=== PATIENT | male | born 1940 | race Caucasian/White ===

== ENCOUNTER → 2018-11-30 | Outpatient (CLI) | payer MEDICARE ==
--- NOTE | 2018-12-01 08:44 | RAD ---
Left lower extremity arterial ultrasound, 11/30/2018: HISTORY: Nonhealing left foot ulcer Duplex evaluation of the major arteries in the left lower extremity was performed including grayscale, color-flow and spectral Doppler analysis. There are moderate scattered atherosclerotic plaquing plaques. The left common femoral and superficial femoral arteries are triphasic. No significant focal velocity acceleration is seen in these vessels to suggest high-grade focal stenosis. The left popliteal Doppler waveform is monophasic. The left posterior tibial artery is patent and demonstrates a monophasic Doppler waveform. There is a velocity acceleration near the origin of the left posterior tibial artery, although inadequate angle correction may be contributing to this high velocity. The appearance suggests moderate stenosis at the origin of this vessel. The left anterior tibial artery is patent with a monophasic Doppler waveform. The left peroneal Doppler waveform is monophasic and dampened. The left dorsalis pedis artery is patent demonstrating a monophasic Doppler waveform. There is streaky subcutaneous edema inferiorly in the lower leg and at the ankle. IMPRESSION: 1. Moderate scattered atherosclerotic plaquing without evidence of high-grade femoral-popliteal stenosis. 2. Probable moderate stenosis at the origin of the left posterior tibial artery. 3. Mild degradation of the Doppler waveforms at and distal to the left popliteal artery level. Ankle-brachial indices, 11/30/2018: Resting ankle-brachial indices were obtained. The right KESHIA is normal measuring 1.19. The left KESHIA is slightly decreased measuring 0.88. IMPRESSION: Mildly decreased left resting KESHIA measurement of 0.88 Electronically signed by: Marcelino Mancia MD (12/01/2018 8:41 AM) [facility], [place]
== END | disposition home or self-care (01) ==
LOC: PMGWOUND 12:07
PROVIDERS: ATTEND Emergency Medicine Undersea and Hyperbaric Medicine
DX: E11.621 Type 2 diabetes mellitus with foot ulcer (principal); L97.423 Non-pressure chronic ulcer of left heel and midfoot with necrosis of muscle; E11.22 Type 2 diabetes mellitus with diabetic chronic kidney disease; N18.9 Chronic kidney disease, unspecified; G89.4 Chronic pain syndrome; E03.9 Hypothyroidism, unspecified; F32.9 Major depressive disorder, single episode, unspecified; N40.1 Benign prostatic hyperplasia with lower urinary tract symptoms
CPT/HCPCS: 93922; 93926; 97597

== ENCOUNTER → 2018-12-21 | Outpatient (CLI) | payer MEDICARE | END | disposition home or self-care (01) | LOC: PMGWOUND 12:50 | PROVIDERS: ATTEND Emergency Medicine Undersea and Hyperbaric Medicine | DX: E11.621 Type 2 diabetes mellitus with foot ulcer (principal); L97.423 Non-pressure chronic ulcer of left heel and midfoot with necrosis of muscle; E11.22 Type 2 diabetes mellitus with diabetic chronic kidney disease; N18.9 Chronic kidney disease, unspecified; L84 Corns and callosities; G89.4 Chronic pain syndrome; E03.9 Hypothyroidism, unspecified; N40.1 Benign prostatic hyperplasia with lower urinary tract symptoms; F32.9 Major depressive disorder, single episode, unspecified | CPT/HCPCS: 11042; 93923 ==

== ENCOUNTER → 2019-01-04 | Outpatient (CLI) | payer MEDICARE | END | disposition home or self-care (01) | LOC: PMGWOUND 11:47 | PROVIDERS: ATTEND Emergency Medicine Undersea and Hyperbaric Medicine | DX: E11.621 Type 2 diabetes mellitus with foot ulcer (principal); L97.423 Non-pressure chronic ulcer of left heel and midfoot with necrosis of muscle; E11.22 Type 2 diabetes mellitus with diabetic chronic kidney disease; N18.9 Chronic kidney disease, unspecified; L84 Corns and callosities; G89.4 Chronic pain syndrome; E03.9 Hypothyroidism, unspecified; I87.2 Venous insufficiency (chronic) (peripheral); F32.9 Major depressive disorder, single episode, unspecified; N40.1 Benign prostatic hyperplasia with lower urinary tract symptoms | CPT/HCPCS: 11042 ==

== ENCOUNTER 2019-06-07 12:13 | Inpatient (IN) | payer MEDICARE ==
[~2019-06-07] VITALS: Ht 182.9 cm; Wt 106.4 kg
--- NOTE | 2019-06-07 13:00 | NUR ---
Received report from Ashley ROSARIO at [facility].
[2019-06-07 16:21] VITALS: BP 138/66
--- NOTE | 2019-06-07 17:19 | PDOC2 ---
GI CONSULT Reason For Consult: GI bleed HPI: HPI: 78 y/o male from [facility]. Awoke at 2:30 a.m. and had "black" emesis. Last occurred at 6:30 a.m. Denies precipitating events. Says this has happened a couple times over the past few months. Hgb 11.8, BUN 58, Cr 1.9, glucose 234. For comparison, Hgb 14.5, BUN 45, Cr 1.9 in 03/2019, then Hgb drifted to 11.7 and 11.[address]: hepatic steatosis, diffuse bladder wall thickening, large volume colonic stool w/ possible impaction, stable renal lesions, markedly distended stomach, and ventral abd hernia containing colon. Occasional burping improved w/ Pepcid. No dysphagia. No abd pain or diarrhea. No hematochezia or melena. Chronic constipation attributed to oxycodone and OxyContin use for right hand, right arm, bilateral shoulders, neck, and back pain. Was also previously taking Celebrex and Aleve but stopped in 03/2019. Reports normal EGD and colonoscopy w/ Dr. Oliveira ~5 years ago. No GB, liver, pancreas, or PUD history. Says he has been advised to take ASA but doesn't. Glucose control has been "all over the place" recently. PMH: PMH: CAD, HTN, DM, hypothyroidism, chronic pain, constipation, neurofibromatosis, BPH, depression, CKD, ED CABG w/ sternal wound dehiscence requiring additional surgery w/ mesh placement (now apparently displaced), left shoulder surgeries, right hand surgery, ?thoracic aneurysm repair FH: Family History: No pertinent hx Social History: Smoke: <1 pack per day ALCOHOL: occassional Drugs: None ROS: GEN: Denies fevers, chills, sweats HEENT: Denies blurred vision, sore throat CV: Denies chest pain RESP: Denies shortness of air, cough GI: Per HPI : Denies hematuria, dysuria ENDO: Denies weight changes NEURO: Denies confusion, dizziness MSK: Denies weakness, joint pain/swelling SKIN: Denies jaundice, pruritus Vitals: Vitals: Vital Signs Date Time Temp Pulse Resp B/P (MAP) Pulse Ox O2 Delivery O2 Flow Rate FiO2 06/07/19 16:21 98.4 96 18 138/66 (90) 96 Room Air 98.4 Labs: Labs: Per HPI. Allergies: Coded Allergies: Penicillins (Verified Allergy, Unknown, 06/07/19) Imaging: Imaging: Per HPI. PE: GEN: NAD, and [id number] present HEENT: Atraumatic, PERRL LUNGS: diminished anteriorly HEART: RRR ABD: NABS, S/ND, reducible ventral hernia EXTREMITY/SKIN: BLE wrapped NEURO/PSYCH: A & O �3 A/P: A/P: Black emesis, distended stomach on CT Normocytic anemia ?GERD - "burping" improved w/ Pepcid CRC screen - UTD OIC Hepatic steatosis Ventral hernia containing colon CAD, CKD, DM/hyperglycemia H/o NSAID use - stopped in March -- NPO, NG tube suction, EGD tomorrow a.m. Agree w/ PPI. Add suppository. Consider Relistor, Movantik, Amitiza, or similar later on. Chronic pain control per Dr. Hancock. GERALD SMITH Jun 07, 2019 17:19
[2019-06-07] MEDS ORDERED: BISACODYL 10 MG SUPP.RECT. PR ONE (17:45)
[2019-06-07] MEDS ORDERED: HYDROmorphone 2 MG/ML VIAL IVP PRN (17:45)
[2019-06-07] MEDS ORDERED: LORazepam 0.5 MG TABLET PO PRN (18:00)
[2019-06-07] MEDS ORDERED: NICOTINE 21MG PATCH. TD PRN (18:00)
[2019-06-07] MEDS: IV NORMAL SALINE 1000ML BAG 1,000 ML IV SCH (18:07)
[2019-06-07 19:00] VITALS: BP 138/64
[2019-06-07 19:11] LABS: BASO % 0 % (0-3); EOS % 0 % (0-3); HEMATOCRIT 31.8 % (39.0-53.0); HEMOGLOBIN 10.7 g/dL (13.0-17.5); LYMPH # 0.8 x10^3/uL (1.0-4.8); LYMPH % 13 % (24-48); MEAN CORPUSCULAR HEMOGLOBIN 32 pg (25-35); MEAN CORPUSCULAR HGB CONC 34 g/dL (31-37); MEAN CORPUSCULAR VOLUME 96 fL (79-100); MONO % 18 % (0-9); NEUT % 68 % (31-73); PLATELET COUNT 275 x10^3/uL (140-400); RED BLOOD COUNT 3.33 x10^6/uL (4.30-5.70); RED CELL DISTRIBUTION WIDTH 13.9 % (11.5-14.5); WHITE BLOOD COUNT 5.8 x10^3/uL (4.0-11.0)
[2019-06-07 19:19] LABS: CALCIUM 8.9 mg/dL (8.5-10.1); CREATININE 1.5 mg/dL (0.7-1.3); GFR 45.4; POTASSIUM 4.3 mmol/L (3.5-5.1)
[2019-06-07] MEDS ORDERED: NIFE60TA16 PO (19:53)
[2019-06-07] MEDS ORDERED: LOSA1TAB25 PO (19:53)
[2019-06-07] MEDS ORDERED: MORP60TA60 PO (19:53)
[2019-06-07] MEDS ORDERED: B12/1TAB PO (19:53)
[2019-06-07] MEDS ORDERED: TEST200V3 IM (19:53)
[2019-06-07] MEDS ORDERED: FINA5TAB4 PO (19:53)
[2019-06-07] MEDS ORDERED: SIMV40TA3 PO (19:53)
[2019-06-07] MEDS ORDERED: FURO40TA4 PO (19:53)
[2019-06-07] MEDS ORDERED: INSU100I13 SQ (19:53)
[2019-06-07] MEDS ORDERED: INSU100I16 SQ (19:53)
[2019-06-07] MEDS ORDERED: METO200T46 PO (19:53)
[2019-06-07] MEDS ORDERED: LEVO175T5 PO (19:53)
[2019-06-07] MEDS: PANTOPRAZOLE IV PUSH 40 MG VIAL. IVP SCH (21:40)
[2019-06-07] MEDS: HYDROmorphone 2 MG/ML VIAL IV PRN (22:07)
--- NOTE | 2019-06-07 23:27 | RAD ---
AP abdomen radiograph 06/07/2019 CLINICAL HISTORY: NG tube placement. An AP portable erect digital radiograph of the abdomen was obtained. The tip of a NG tube extends to overlie the body of the stomach. The side-port of the NG tube overlies the expected location of the GE junction. The visualized abdominal bowel gas pattern is nonspecific. Subsegmental atelectasis is seen involving the left lower lobe. The cardiac silhouette is mildly enlarged. Mild S-shaped curvature of the thoracolumbar spine is seen. Degenerative changes are seen involving lower thoracic and throughout the lumbar spine. IMPRESSION: The tip of the NG tube overlies the body of the stomach. Electronically signed by: Kervin Segovia MD (06/07/2019 11:25 PM) [facility]
[2019-06-07 23:50] VITALS: BP 123/60
[2019-06-08] MEDS: HYDROmorphone 2 MG/ML VIAL IV PRN ×6 (02:17→23:08)
[2019-06-08 03:14] VITALS: BP 131/72
[2019-06-08] MEDS: IV NORMAL SALINE 1000ML BAG 1,000 ML IV SCH ×2 (05:29→19:10)
[2019-06-08 07:25] VITALS: BP 106/64
[2019-06-08 07:33] LABS: HEMATOCRIT 31.5 % (39.0-53.0); HEMOGLOBIN 10.8 g/dL (13.0-17.5)
[2019-06-08] MEDS: PANTOPRAZOLE IV PUSH 40 MG VIAL. IVP SCH ×2 (08:38→21:39)
--- NOTE | 2019-06-08 09:06 | HP ---
ADMIT DATE: HISTORY OF PRESENT ILLNESS: The patient is a 78-year-old male patient who came to the Emergency Room of [facility] with a complaint of recurrent episodes of nausea, vomiting with vomiting blood. He also complained of abdominal pain. The patient reported that emesis was black and tarry in nature and the abdominal pain was diffuse. Emergency medical service personnel gave him Zofran and fentanyl, which did significantly improved the discomfort. He has previous history of cardiac bypass surgery in 1999, but is not currently on any blood thinners or aspirin. Denied any blood in the stools. He notes that he has had a cough, uncertain as to whether cough is triggering the vomiting. He denied any recent travel or ill contact. He was investigated in the Emergency Room and was transferred to [facility] to consult the GI team to monitor his H and H and transfuse him if needed. The patient denied using any nonsteroidal anti-inflammatory medication. Since his last admission in March this year while in the Emergency Room, he was found to have acute on chronic kidney injury. His creatinine is up to 1.9, has had a CT scan of the abdomen and pelvis as well as chest x-ray. His chest x-ray showed no acute pulmonary process and a CT scan of the abdomen and pelvis showed that he has large volume colonic stool, content large volume stool, likely impacted within the rectosigmoid. The stomach is markedly distended with fluid. This may be a result of recent meal ingestion, although pyloric or proximal small bowel obstruction cannot be entirely excluded. Has nonspecific mesenteric infiltration engorgement, grossly stable by the prior CT. No free or loculated fluid collection or pneumoperitoneum. High density renal lesions are essentially unchanged from prior CT from 08/31/2018. This can be correlated with ultrasound or MRI if not previously performed, has diffuse bladder wall thickening, may be seen with cystitis. He was basically admitted to [facility], kept n.p.o. and started on IV fluid, IV pain medication as well as IV Protonix. PAST MEDICAL HISTORY: Significant for benign prostatic hypertrophy, hypothyroidism, hypogonadism, neurofibromatosis, type 2 diabetes mellitus, chronic fatigue syndrome, chronic neck pain, lumbago, depression, chronic pain syndrome, chronic renal insufficiency, erectile dysfunction and nocturia. PAST SURGICAL HISTORY: Significant for thoracic aortic aneurysm repair. He has also shoulder surgery and hand surgery. FAMILY HISTORY: Both parents are . SOCIAL HISTORY: He is , lives with his . He has 1 son who is in the law enforcement agency at another state. He apparently does not smoke, drink alcohol or use recreational drugs. ALLERGIES: HE IS ALLERGIC TO PENICILLIN. MEDICATIONS: He is currently on following medications: He is on simvastatin 40 mg at bedtime, metoprolol succinate 100 mg once a day, nifedipine 60 mg once a day, losartan potassium 100 mg once a day, hydromorphone 2 mg 3 times a day, morphine sulfate 60 mg p.o. t.i.d., furosemide 40 mg once a day, testosterone 200 mg intramuscular every 10 days. He is on Lantus insulin 35 units at bedtime, levothyroxine 175 mcg once a day, finasteride 5 mg once a day. REVIEW OF SYSTEMS: As per history of present illness. PHYSICAL EXAMINATION: GENERAL: On arrival to the Emergency Room, he looked well and was clearly in no apparent respiratory distress, slightly pale, but no jaundice, cyanosis or thyromegaly. No jugular venous distention. No limb edema. VITAL SIGNS: His heart rate was 82, blood pressure 149/78, temperature was 97.9, respiratory rate was 17 and oxygen saturation was 95%. HEAD, EYES, EARS, NOSE AND THROAT: Showed normocephalic, atraumatic. NECK: Supple. HEART: Showed normal first and second heart sounds. No gallop or murmur. CHEST: Clear to auscultation. No crepitation or rhonchi. ABDOMEN: Distended, soft, nontender. No guarding or rigidity. No organomegaly. All hernial orifice intact. Bowel sounds normal. NEUROLOGIC: He was awake, alert, responding appropriately. All cranial nerves are intact. He moves his upper extremities to much good extent than lower extremities, he is mostly bedbound, chair bound. LABORATORY DATA: On arrival to the Emergency Room showed a serum sodium 137, potassium 4, chloride 99, bicarbonate 29, anion gap of 9, BUN 58, creatinine was 1.9, estimated GFR was 34 mL per minute, his glucose was 134, calcium was 9.8. Total bilirubin, AST, ALT, alkaline phosphatase were normal. Total protein 6.7, albumin 2.3. Serum lipase was 32. His white cell count was 6900, hemoglobin 12, hematocrit 35, MCV 96, and platelet count of 295,000 with normal manual differential. His prothrombin time was 10.8, INR 1, aPTT was 38. Urinalysis showed the urine was yellow, hazy with a pH of 5, specific gravity of 1.010. Urine protein was 30 mg/dL. There was small amount of glucose, trace of ketones, small amount of blood, negative for nitrite and leukocyte esterase, only 3-5 rbc's with occasional wbc's and no bacteria. His chest x-ray showed the heart size is normal. Lungs are clear. No pneumothorax or effusion, calcified granulomas in the left lung base. Visualized bony thorax within normal limits. His CT scan of the abdomen and pelvis showed that the patient has large volume stool, likely impacted within the rectosigmoid. His stomach is markedly distended with fluid. This may be a result of recent meal ingestion, although pyloric or proximal small bowel obstruction cannot be entirely excluded. There is nonspecific mesenteric infiltration engorgement, grossly stable compared to previous CT scan. No free fluid or loculated fluid collection, no pneumoperitoneum. There is also diffuse bladder wall thickening, may be seen with cystitis. The patient was basically transferred to [facility], was kept n.p.o. We started him on IV fluid and consulted the Gastroenterology team to assist with his management. He was started on IV hydromorphone for pain management as well as IV Protonix. We will monitor his H and H closely and transfuse him if needed. KERI DIGGS MD DR: PAIGE/chastity JOB#: [id number] / [id number]
--- NOTE | 2019-06-08 09:08 | PN ---
DATE: 06/08/2019 SUBJECTIVE: The patient is resting, slightly propped up in bed, in no apparent respiratory distress. He was seen by the Gastroenterology team, has had an NG tube to intermittent suction. He continues to have cough, but has no further episodes of nausea, vomiting or hematemesis. He did have a bowel movement. PHYSICAL EXAMINATION: GENERAL: When I examined him this morning, he looked pale. No jaundice, cyanosis or thyromegaly. No jugular venous distension. No lower limb edema. VITAL SIGNS: His heart rate was 81, blood pressure was 106/64, temperature was 98.3, respiratory rate was 18 and oxygen saturation was 94%. HEAD, EYES, EARS, NOSE AND THROAT: Normocephalic, atraumatic. NECK: Supple. HEART: Showed normal first and second heart sounds. No gallop or murmur. CHEST: Clear to auscultation. No crepitation or rhonchi. ABDOMEN: Distended, soft, nontender. No guarding or rigidity. No organomegaly. All hernial orifices are intact. Bowel sounds normal. NEUROLOGICAL: He is awake, alert, responding appropriately. All cranial nerves intact. He moves upper extremities to much great extent than lower extremities. EXTREMITIES: He has wounds in both lower extremities that are apparently covered with dressings, followed by Wound Care team. His intake over the last 24 hours was incompletely recorded, output was 600. LABORATORY DATA: His lab work this morning: His hemoglobin was 10.8, hematocrit 31.5. His chemistry showed a serum sodium 137, potassium 4.3, chloride 102, bicarbonate 26, anion gap of 9, BUN 53, creatinine 1.5, estimated GFR was 45 mL per minute and glucose was 256, calcium was 8.9. Serum iron, TIBC and iron saturation are all low; however, his vitamin B12 was 587 pg/mL. ASSESSMENT: Recurrent bouts of dark black emesis with CT scan revealing distended stomach. The patient has normochromic normocytic anemia. The patient has multiple other medical problems. PLAN: To continue with NG tube to suction, continue with IV fluid, continue with proton pump inhibitor. He is scheduled for upper GI endoscopy today. KERI DIGGS MD DR: PAIGE/chastity JOB#: [id number] / [id number]
[2019-06-08] MEDS: IV RINGERS,LACTATED 1000ML 1,000 ML IV SCH ×2 (09:15→22:35)
[2019-06-08 09:23] LABS: HEMATOCRIT 33.1 % (39.0-53.0); HEMOGLOBIN 11.1 g/dL (13.0-17.5)
[2019-06-08] MEDS ORDERED: LIDOCAINE 2% PF 5 ML VIAL. ONE (10:20)
[2019-06-08] MEDS ORDERED: PROPOFOL 20 ML IV ONE (10:20)
--- NOTE | 2019-06-08 10:38 | PDOC4 ---
Operative Note Operative Note EGD with biopsies Meds propofol per anesthesia Pre-op dx hematemesis Post-op erosive esophagitis non-erosive gastritis s/p bx cratered ulcer bulb with clean base s/p bx Plan serial Hgs PPI therapy advance diet in am LOW ALLEN MD Jun 08, 2019 10:38
--- NOTE | 2019-06-08 10:59 | NUR ---
Received report from RN in outpatient for this patient. Ulcer in duodenal ulcer, bioppsied, no active bleeding. Monitor for rebleeding. Starting 06/09 clear liquids. DC NG. BP meds okayed. Hold anticoagulants.
[2019-06-08] MEDS ORDERED: INSULIN ASPART SQ SCH (11:30)
[2019-06-08] MEDS ORDERED: [UNRECOGNIZED DRUG - OTHER] SQ SCH (11:30)
[2019-06-08] MEDS ORDERED: INSULIN ASPART PROTAMINE SQ SCH (11:30)
[2019-06-08 11:37] VITALS: BP 151/81
[2019-06-08] MEDS: FUROSEMIDE 40 MG TABLET. PO SCH (12:00)
[2019-06-08] MEDS: VITAMIN B COMPLEX TABLET. PO SCH (12:00)
[2019-06-08] MEDS: FINASTERIDE 5 MG TABLET. PO SCH (12:00)
[2019-06-08] MEDS: MORPHINE ER 30 MG TABLET.ER PO SCH ×2 (12:00→21:00)
[2019-06-08 12:18] LABS: HEMATOCRIT 32.3 % (39.0-53.0); HEMOGLOBIN 10.8 g/dL (13.0-17.5)
[2019-06-08] MEDS: LOSARTAN POTASSIUM 50 MG TABLET. PO SCH (12:51)
[2019-06-08] MEDS: METOPROLOL SUCC 24HR ER 100 MG TAB.ER.24H. PO SCH (12:51)
--- NOTE | 2019-06-08 13:05 | NUR ---
SW following pt for dc planning. Chart reviewed and discussed with RN. Pt lives at home with family and GI following. No dc recommendation noted at this time. Will continue to follow pending dc needs.
[2019-06-08] MEDS: LEVOTHYROXINE 175 MCG TABLET PO SCH (14:01)
[2019-06-08 15:00] VITALS: BP 180/78
[2019-06-08] MEDS ORDERED: IV DEXTROSE 5% 250 ML BAG. IV PRN (15:30)
[2019-06-08] MEDS ORDERED: DEXTROSE 50% 25 GM / 50ML DISP.SYRIN. IV PRN (15:30)
--- NOTE | 2019-06-08 16:04 | NUR ---
Wound care: Patient seen per wound care consult. See wound assessment. Patient is well known to us in the wound clinic for his left lateral heel pressure ulcer. Dressing removed and wound cleansed and assessed. Recommendations for Iodoflex and cover with Aquacel foam dressing. Dressing applied. No other wounds noted upon complete head to toe assessment. Bilateral heel medix boots ordered for this patient. Patient repositioning per self, but will benefit from the heel medix. Dressing change instructions left in room and extra Iodoflex left in room for dressing changes. Bed lowered and call light in reach. Will follow patient regarding wound care and patient has follow up appointment with us in the wound clinic following discharge.
[2019-06-08] MEDS: INSULIN LISPRO 300 UNITS/3 ML VIAL. SQ SCH (18:00)
--- NOTE | 2019-06-08 19:38 | NUR ---
LR was ordered, for patient after EGD, then will go back to NS IV.
[2019-06-08 19:40] VITALS: BP 115/50
[2019-06-08] MEDS: SIMVASTATIN 40 MG TABLET. PO SCH (21:00)
[2019-06-08] MEDS: INSULIN GLARGINE SYRINGE. SQ SCH (21:49)
[2019-06-08 23:12] VITALS: BP 131/59
[2019-06-09] MEDS: HYDROmorphone 2 MG/ML VIAL IV PRN ×6 (02:24→21:15)
[2019-06-09 03:14] VITALS: BP 117/53
[2019-06-09 04:37] LABS: HEMATOCRIT 33.6 % (39.0-53.0); HEMOGLOBIN 11.3 g/dL (13.0-17.5); RED BLOOD COUNT 3.5 x10^6/uL (4.30-5.70); RED CELL DISTRIBUTION WIDTH 14.2 % (11.5-14.5); WHITE BLOOD COUNT 6.4 x10^3/uL (4.0-11.0)
[2019-06-09 05:01] LABS: ALBUMIN/GLOBULIN RATIO 0.5 (1.0-1.7); CALCIUM 9.4 mg/dL (8.5-10.1); CREATININE 1.4 mg/dL (0.7-1.3); GFR 49.1; POTASSIUM 4.1 mmol/L (3.5-5.1); TOTAL BILIRUBIN 0.5 mg/dL (0.2-1.0); TOTAL PROTEIN 6.3 g/dL (6.4-8.2)
[2019-06-09] MEDS: LEVOTHYROXINE 175 MCG TABLET PO SCH (06:00)
[2019-06-09 07:00] VITALS: BP 138/55
[2019-06-09] MEDS: FUROSEMIDE 40 MG TABLET. PO SCH (08:16)
[2019-06-09] MEDS: METOPROLOL SUCC 24HR ER 100 MG TAB.ER.24H. PO SCH (08:22)
[2019-06-09] MEDS: PANTOPRAZOLE IV PUSH 40 MG VIAL. IVP SCH ×2 (08:22→20:45)
[2019-06-09] MEDS: MORPHINE ER 30 MG TABLET.ER PO SCH ×2 (08:23→20:45)
[2019-06-09] MEDS: VITAMIN B COMPLEX TABLET. PO SCH (08:24)
[2019-06-09] MEDS: LOSARTAN POTASSIUM 50 MG TABLET. PO SCH (08:24)
[2019-06-09] MEDS: FINASTERIDE 5 MG TABLET. PO SCH (08:24)
[2019-06-09] MEDS: INSULIN LISPRO 300 UNITS/3 ML VIAL. SQ SCH ×4 (08:59→17:32)
[2019-06-09 11:00] VITALS: BP 130/63
[2019-06-09] MEDS: IV NORMAL SALINE 1000ML BAG 1,000 ML IV SCH (11:27)
[2019-06-09] MEDS ORDERED: IV DEXTROSE 5% 250 ML BAG. IV PRN (11:45)
[2019-06-09] MEDS ORDERED: DEXTROSE 50% 25 GM / 50ML DISP.SYRIN. IV PRN (11:45)
[2019-06-09 12:04] LABS: HEMOGLOBIN 10.8 g/dL (13.0-17.5)
--- NOTE | 2019-06-09 12:16 | PN ---
DATE: 06/09/2019 SUBJECTIVE: The patient is sitting comfortably in his chair, in no apparent distress. On questioning him, he denied any complaint, in particular, he has no further episodes of nausea or vomiting. No hematemesis or melena. His H and H have been stable throughout his stay here. He has had esophagogastroduodenoscopy done and showed that he has erosive esophagitis, nonerosive gastritis and cratered ulcer bulb with clean base, status post biopsy. The training and quality manager recommended to continue with PPI and advance diet. He was yesterday n.p.o. with ice chips. Today, he was started on a clear liquid and advanced to full liquid this afternoon. The nursing staff concerned that his blood sugar is high this morning. PHYSICAL EXAMINATION: GENERAL: When I examined him, he looked well and was clearly in no apparent respiratory distress. No pallor, jaundice, cyanosis or thyromegaly. No jugular venous distension. No limb edema. VITAL SIGNS: His heart rate was 77, blood pressure was 138/55, temperature was 98, respiratory rate 20, and oxygen saturation was 95% on room air. HEAD, EYES, EARS, NOSE AND THROAT: Showed normocephalic, atraumatic. NECK: Supple. HEART: Showed normal first and second heart sounds. No gallop or murmur. CHEST: Clear to auscultation. No crepitation or rhonchi. ABDOMEN: Distended, soft, nontender. NEUROLOGIC: He was awake, alert, responding appropriately. All cranial nerves intact. He moves extremities without difficulty. LABORATORY DATA: His white cell count was 6400, hemoglobin 11, hematocrit 33, MCV 96, and platelet count 332,000. His chemistry this morning showed a serum sodium 139, potassium 4.1, chloride 104, bicarbonate 22, anion gap of 13, BUN 42, creatinine 1.6, estimated GFR was 49 and glucose was 335, calcium was 9.4. Total bilirubin, AST, ALT, alkaline phosphatase were normal. Total protein was 6.3, albumin 2. ASSESSMENT: 1. Recurrent bouts of dark black emesis. CT scan revealing distended stomach. Normochromic normocytic anemia. Has multiple other medical problems including: A. Benign prostatic hypertrophy. B. Hypothyroidism. C. Hypogonadism. D. Neurofibromatosis. E. Type 2 diabetes mellitus. F. Chronic renal insufficiency. He obviously has erosive esophagitis and nonerosive gastritis and duodenal ulcer without signs of active bleeding. PLAN: To continue with proton pump inhibitor and advance diet. I will increase his insulin sliding scale to high-dose sliding scale. Continue his Lantus insulin at nighttime. Continue to monitor his lab work and if he remained stable, he can be discharged back home. KERI DIGGS MD DR: PAIGE/chastity JOB#: [id number] / [id number]
--- NOTE | 2019-06-09 14:11 | PDOC ---
Subjective: Subjective: No further bleeding Objective: Vital Signs: Vital Signs Date Time Temp Pulse Resp B/P (MAP) Pulse Ox O2 Delivery O2 Flow Rate FiO2 06/09/19 12:34 18 95 Room Air 06/09/19 11:00 99.2 74 130/63 (85) 99.2 Labs: Laboratory Tests Test 06/08/19 18:14 06/08/19 20:57 06/09/19 04:15 06/09/19 08:15 Glucose (Fingerstick) 280 mg/dL (70-99) 289 mg/dL (70-99) 304 mg/dL (70-99) White Blood Count 6.4 x10^3/uL (4.0-11.0) Red Blood Count 3.50 x10^6/uL (4.30-5.70) Hemoglobin 11.3 g/dL (13.0-17.5) Hematocrit 33.6 % (39.0-53.0) Mean Corpuscular Volume 96 fL (79-100) Mean Corpuscular Hemoglobin 32 pg (25-35) Mean Corpuscular Hemoglobin Concent 34 g/dL (31-37) Red Cell Distribution Width 14.2 % (11.5-14.5) Platelet Count 332 x10^3/uL (140-400) Sodium Level 139 mmol/L (136-145) Potassium Level 4.1 mmol/L (3.5-5.1) Chloride Level 104 mmol/L (98-107) Carbon Dioxide Level 22 mmol/L (21-32) Anion Gap 13 (6-14) Blood Urea Nitrogen 42 mg/dL (8-26) Creatinine 1.4 mg/dL (0.7-1.3) Estimated GFR (Cockcroft-Gault) 49.1 BUN/Creatinine Ratio 30 (6-20) Glucose Level 335 mg/dL (70-99) Calcium Level 9.4 mg/dL (8.5-10.1) Total Bilirubin 0.5 mg/dL (0.2-1.0) Aspartate Amino Transf (AST/SGOT) 12 U/L (15-37) Alanine Aminotransferase (ALT/SGPT) 19 U/L (16-63) Alkaline Phosphatase 65 U/L (46-116) Total Protein 6.3 g/dL (6.4-8.2) Albumin 2.0 g/dL (3.4-5.0) Albumin/Globulin Ratio 0.5 (1.0-1.7) Test 06/09/19 10:49 06/09/19 11:50 Glucose (Fingerstick) 467 mg/dL (70-99) Hemoglobin 10.8 g/dL (13.0-17.5) Hematocrit 32.0 % (39.0-53.0) Mean Corpuscular Hemoglobin Concent 34 g/dL (31-37) Physical Exam: Physical Exam: GEN: NAD HEENT: OP clear CV: S1S2 without murmurs, rubs, or gallops RESP: CTAB without wheezing, rhonchi, or crackles ABD: NABS, SNT/ND EXT: No edema NEURO: AAO x 3 Assessment & Plan: Assessment : 1)hematemesis 2)erosive esophagitis 3)non-erosive gastritis s/p bx 4)cratered ulcer bulb with clean base s/p bx 5) Anemia: Hgb stable at 10.8 Plan: Plan serial Hgb PPI therapy CARLOS SHINE MD Jun 09, 2019 14:11
[2019-06-09 15:00] VITALS: BP 144/61
[2019-06-09 19:37] VITALS: BP 123/57
[2019-06-09] MEDS: SIMVASTATIN 40 MG TABLET. PO SCH (20:45)
[2019-06-09] MEDS: INSULIN GLARGINE SYRINGE. SQ SCH (21:19)
[2019-06-09 23:32] VITALS: BP 133/58
[2019-06-10] MEDS: HYDROmorphone 2 MG/ML VIAL IV PRN ×6 (01:05→23:39)
[2019-06-10 03:51] VITALS: BP 135/59
[2019-06-10 05:33] LABS: CALCIUM 9.5 mg/dL (8.5-10.1); CREATININE 1.2 mg/dL (0.7-1.3); GFR 58.7; POTASSIUM 3.7 mmol/L (3.5-5.1)
[2019-06-10] MEDS: LEVOTHYROXINE 175 MCG TABLET PO SCH (06:11)
[2019-06-10 06:47] LABS: HEMATOCRIT 34.4 % (39.0-53.0); HEMOGLOBIN 11.5 g/dL (13.0-17.5); RED BLOOD COUNT 3.59 x10^6/uL (4.30-5.70); WHITE BLOOD COUNT 7.2 x10^3/uL (4.0-11.0)
[2019-06-10 07:00] VITALS: BP 128/68
[2019-06-10] MEDS: VITAMIN B COMPLEX TABLET. PO SCH (08:23)
[2019-06-10] MEDS: MORPHINE ER 30 MG TABLET.ER PO SCH ×2 (08:24→20:26)
[2019-06-10] MEDS: LOSARTAN POTASSIUM 50 MG TABLET. PO SCH (08:25)
[2019-06-10] MEDS: FUROSEMIDE 40 MG TABLET. PO SCH (08:26)
[2019-06-10] MEDS: METOPROLOL SUCC 24HR ER 100 MG TAB.ER.24H. PO SCH (08:28)
[2019-06-10] MEDS: PANTOPRAZOLE IV PUSH 40 MG VIAL. IVP SCH ×2 (08:28→20:25)
[2019-06-10] MEDS: INSULIN LISPRO 300 UNITS/3 ML VIAL. SQ SCH ×3 (08:35→16:32)
[2019-06-10] MEDS: FINASTERIDE 5 MG TABLET. PO SCH (09:00)
--- NOTE | 2019-06-10 10:29 | PN ---
DATE: 06/10/2019 SUBJECTIVE: The patient is resting slightly propped up in bed, in no apparent distress. On questioning him, he denied any further episodes of nausea and vomiting. Denied any hematemesis or melena. Nursing staff did not voice any concerns that he had an uneventful night. PHYSICAL EXAMINATION: GENERAL: When I examined him, he looked pale, but no jaundice, cyanosis or thyromegaly. No jugular venous distention. No limb edema. VITAL SIGNS: His heart rate was 75, blood pressure was 135/59, temperature was 98.9, respiratory rate was 16, and oxygen saturation was 94%. HEAD, EYES, EARS, NOSE AND THROAT: Showed normocephalic, atraumatic. NECK: Supple. HEART: Showed normal first and second heart sounds. No gallop, rub or murmur. CHEST: Clear to auscultation. No crepitation or rhonchi. ABDOMEN: Distended, soft, nontender. No guarding or rigidity. No organomegaly. All hernial orifices intact. Bowel sounds normal. NEUROLOGIC: He was awake, alert, responding appropriately. He moves extremities without difficulty, although he is mostly bed-bound, chair-bound. His intake over the last 24 hours was 760, output was 1775. LABORATORY DATA: His lab work this morning showed a serum sodium 138, potassium 3.7, chloride 103, bicarbonate 28, anion gap of 7, BUN 32, creatinine 1.2, estimated GFR was 58 mL per minute, glucose 236, calcium was 9.5. His white cell count was 7200, hemoglobin 11.5, hematocrit 34, MCV 96, platelet count 371,000. ASSESSMENT: 1. Hematemesis with finding of erosive esophagitis and erosive gastritis, and cratered ulcer bulb with clean base, status post biopsy. The patient initially was kept n.p.o. with clear liquid diet, advance as tolerated. 2. The patient has multiple other medical problems including: A. Benign prostatic hypertrophy. B. Hypothyroidism. C. Hypogonadism. D. Neurofibromatosis. E. Type 2 diabetes mellitus. F. Chronic renal insufficiency. G. Chronic pain syndrome. PLAN: To continue with proton pump inhibitor. We will advance his diet today and I have also increased his sliding scale to high dose. If he is tolerating his diet without problem and has no further episodes of hematemesis, melena or hematochezia and remains hemodynamically stable, he will be discharged home tomorrow. KERI DIGGS MD DR: PAIGE/chastity JOB#: [id number] / [id number]
[2019-06-10 10:45] VITALS: BP 128/59
--- NOTE | 2019-06-10 14:53 | PDOC ---
Subjective: Subjective: Hgb 11.5 Objective: Vital Signs: Vital Signs Date Time Temp Pulse Resp B/P (MAP) Pulse Ox O2 Delivery O2 Flow Rate FiO2 06/10/19 13:31 96 Room Air 06/10/19 10:45 98.2 67 18 128/59 (82) 98.2 06/10/19 03:51 94.0 Labs: Laboratory Tests Test 06/09/19 16:46 06/09/19 21:14 06/10/19 03:50 06/10/19 07:20 Glucose (Fingerstick) 367 mg/dL (70-99) 293 mg/dL (70-99) 199 mg/dL (70-99) White Blood Count 7.2 x10^3/uL (4.0-11.0) Red Blood Count 3.59 x10^6/uL (4.30-5.70) Hemoglobin 11.5 g/dL (13.0-17.5) Hematocrit 34.4 % (39.0-53.0) Mean Corpuscular Volume 96 fL (79-100) Mean Corpuscular Hemoglobin 32 pg (25-35) Mean Corpuscular Hemoglobin Concent 33 g/dL (31-37) Red Cell Distribution Width 14.0 % (11.5-14.5) Platelet Count 371 x10^3/uL (140-400) Sodium Level 138 mmol/L (136-145) Potassium Level 3.7 mmol/L (3.5-5.1) Chloride Level 103 mmol/L (98-107) Carbon Dioxide Level 28 mmol/L (21-32) Anion Gap 7 (6-14) Blood Urea Nitrogen 32 mg/dL (8-26) Creatinine 1.2 mg/dL (0.7-1.3) Estimated GFR (Cockcroft-Gault) 58.7 Glucose Level 236 mg/dL (70-99) Calcium Level 9.5 mg/dL (8.5-10.1) Test 06/10/19 11:16 Glucose (Fingerstick) 180 mg/dL (70-99) Physical Exam: Physical Exam: Physical Exam: GEN: NAD HEENT: OP clear CV: S1S2 without murmurs, rubs, or gallops RESP: CTAB without wheezing, rhonchi, or crackles ABD: NABS, SNT/ND EXT: No edema NEURO: AAO x 3 Assessment & Plan: Assessment : 1)hematemesis 2)erosive esophagitis 3)non-erosive gastritis s/p bx 4)cratered ulcer bulb with clean base s/p bx 5) Anemia: Hgb stable at 11.5 Plan: Plan serial Hgb PPI therapy CARLOS SHINE MD Jun 10, 2019 14:53
[2019-06-10 15:00] VITALS: BP 125/64
[2019-06-10 19:56] VITALS: BP 99/52
[2019-06-10] MEDS: SIMVASTATIN 40 MG TABLET. PO SCH (20:26)
[2019-06-10 23:08] VITALS: BP 116/54
[2019-06-10] MEDS: INSULIN GLARGINE SYRINGE. SQ SCH (23:37)
[2019-06-11] MEDS: HYDROmorphone 2 MG/ML VIAL IV PRN ×5 (02:29→21:22)
[2019-06-11 03:42] LABS: HEMATOCRIT 32.9 % (39.0-53.0); HEMOGLOBIN 11.1 g/dL (13.0-17.5); RED BLOOD COUNT 3.44 x10^6/uL (4.30-5.70); RED CELL DISTRIBUTION WIDTH 13.9 % (11.5-14.5); WHITE BLOOD COUNT 10.8 x10^3/uL (4.0-11.0)
[2019-06-11 03:46] VITALS: BP 97/57
[2019-06-11 04:16] LABS: ALBUMIN 1.8 g/dL (3.4-5.0); ALBUMIN/GLOBULIN RATIO 0.4 (1.0-1.7); CALCIUM 9.3 mg/dL (8.5-10.1); CREATININE 1.5 mg/dL (0.7-1.3); GFR 45.4; POTASSIUM 3.7 mmol/L (3.5-5.1); TOTAL BILIRUBIN 0.4 mg/dL (0.2-1.0)
[2019-06-11 07:00] VITALS: BP 136/69
[2019-06-11] MEDS: LEVOTHYROXINE 175 MCG TABLET PO SCH (07:08)
[2019-06-11] MEDS: INSULIN LISPRO 300 UNITS/3 ML VIAL. SQ SCH ×3 (08:00→17:00)
[2019-06-11] MEDS: PANTOPRAZOLE IV PUSH 40 MG VIAL. IVP SCH (09:19)
[2019-06-11] MEDS: MORPHINE ER 30 MG TABLET.ER PO SCH ×2 (09:20→20:29)
[2019-06-11] MEDS: METOPROLOL SUCC 24HR ER 100 MG TAB.ER.24H. PO SCH (09:21)
[2019-06-11] MEDS: FUROSEMIDE 40 MG TABLET. PO SCH (09:21)
[2019-06-11] MEDS: VITAMIN B COMPLEX TABLET. PO SCH (09:21)
[2019-06-11] MEDS: LOSARTAN POTASSIUM 50 MG TABLET. PO SCH (09:21)
[2019-06-11] MEDS: FINASTERIDE 5 MG TABLET. PO SCH (09:21)
--- NOTE | 2019-06-11 10:43 | NUR ---
SW consulted for dc planning. Chart reviewed and discussed with Physician. Pt lives at home with who is requesting an eval at [place]. also requesting assistance with DME. SW requested for PT/OT order to eval skilled needs. Will continue to follow.
[2019-06-11 11:12] VITALS: BP 128/64
--- NOTE | 2019-06-11 12:40 | PDOC ---
Subjective: Subjective: I asked how he was doing - "I don't know, you should ask these ladies" ( referring to nurse and aide). Per staff - stooling, no bleeding, tolerating diet (had jello for breakfast because he didn't want cream of wheat). Nurse says maybe back to [facility] soon? Objective: Vital Signs: Vital Signs Date Time Temp Pulse Resp B/P (MAP) Pulse Ox O2 Delivery O2 Flow Rate FiO2 06/11/19 11:12 98.0 80 18 128/64 (85) 92 Room Air 98.0 06/11/19 09:22 94.0 Labs: Laboratory Tests Test 06/10/19 16:22 06/10/19 21:08 06/11/19 02:55 06/11/19 07:46 Glucose (Fingerstick) 174 mg/dL 103 mg/dL 115 mg/dL White Blood Count 10.8 x10^3/uL Red Blood Count 3.44 x10^6/uL Hemoglobin 11.1 g/dL Hematocrit 32.9 % Mean Corpuscular Volume 96 fL Mean Corpuscular Hemoglobin 32 pg Mean Corpuscular Hemoglobin Concent 34 g/dL Red Cell Distribution Width 13.9 % Platelet Count 356 x10^3/uL Sodium Level 138 mmol/L Potassium Level 3.7 mmol/L Chloride Level 102 mmol/L Carbon Dioxide Level 28 mmol/L Anion Gap 8 Blood Urea Nitrogen 32 mg/dL Creatinine 1.5 mg/dL Estimated GFR (Cockcroft-Gault) 45.4 BUN/Creatinine Ratio 21 Glucose Level 130 mg/dL Calcium Level 9.3 mg/dL Total Bilirubin 0.4 mg/dL Aspartate Amino Transf (AST/SGOT) 11 U/L Alanine Aminotransferase (ALT/SGPT) 12 U/L Alkaline Phosphatase 64 U/L Total Protein 6.0 g/dL Albumin 1.8 g/dL Albumin/Globulin Ratio 0.4 Test 06/11/19 11:21 Glucose (Fingerstick) 160 mg/dL Imaging: EGD 06/08 erosive esophagitis non-erosive gastritis s/p bx cratered ulcer bulb with clean base s/p bx PE: GEN: NAD - staff cleaning/changing NEURO/PSYCH: A & O �3 A/P: Vomiting - resolved Erosive esophagitis, non-erosive gastritis, cratered DU - path pending OIC, ventral hernia containing colon ACD - Hgb stable Hepatic steatosis -- ADAT. PO PPI. Follow-up re: path. Is stooling but will add Miralax, etc. for chronic constipation - consider others if indicated as previously discussed. GERALD SMITH Jun 11, 2019 12:40
[2019-06-11 15:04] VITALS: BP 130/68
[2019-06-11] MEDS ORDERED: POLYETHYLENE GLYCOL 3350 17 GM PACKET. PO PRN (15:45)
[2019-06-11] MEDS ORDERED: BISACODYL 5 MG TABLET.DR. PO PRN (15:45)
--- NOTE | 2019-06-11 16:48 | RAD ---
Left upper extremity venous Doppler ultrasound HISTORY: Left arm swelling TECHNIQUE: Grayscale, color Doppler and spectral waveform analysis is performed. FINDINGS: The left internal jugular vein, subclavian vein, cephalic vein and radial vein are patent without evidence of thrombus. Due to limited patient mobility, the left axillary, brachial, basilic and ulnar veins cannot be evaluated. There appears to be a large heterogeneous lesion or collection in the soft tissues lateral to the shoulder and distal upper arm measures approximately 20 cm in diameter. IMPRESSION: 1. No evidence of thrombus involving the left internal jugular, subclavian, cephalic radial veins. 2. Other left upper extremity veins cannot be visualized due to limited patient mobility. 3. Apparent large complex collection in the lateral soft tissues of the shoulder and upper arm. Uncertain etiology, could represent hematoma or abscess depending on clinical concern. Electronically signed by: Cirilo Keith MD (06/11/2019 4:46 PM) [facility]
--- NOTE | 2019-06-11 18:11 | PATHOLOGY ---
[facility] Accession Number: [id number] . 01 Material submitted: . PART A: duodenum - DUODENAL ULCER PART B: stomach - GASTRIC . 01 Clinical history: . Pre-OP DX: Coffee-ground emesis Post-OP DX: Ulcer, rule out malignancy, rule out H. pylori . 02 Diagnosis: A. Duodenal biopsies, duodenal ulcer. - Segments of duodenal and gastric antral mucosa showing edema and acute and chronic inflammation. . B. Gastric biopsies: - Chronic gastritis, mild. (JPM:[facility] 06/11/2019) [facility]/06/11/2019 . 02 Comment: Sections of the duodenal ulcer biopsy reveal segments of duodenal and gastric antral mucosa showing edema and acute and chronic inflammation. There is no evidence of malignancy. . Sections of the gastric biopsy reveal segments of gastric antral and gastric body mucosa showing congestion and mild chronic inflammation. A properly controlled immunoperoxidase stain for Helicobacter is negative for Helicobacter organisms. There is no evidence of malignancy. (JP:[facility] 06/11/2019) . 02 Electronically signed: . Tevin Toure MD, Pathologist NPI- [id number] . 01 Gross description: . A. Received in formalin labeled "Myles Tobar, duodenal ulcer," are 4 segments of castrejon soft tissue measuring 0.7 x 0.6 x 0.1 cm in aggregate dimensions and ranging from 0.3 to 0.4 cm in maximum dimension. The specimen is submitted entirely in cassette A1. . B. Received in formalin labeled "Myles Tobar, gastric," are 3 segments of castrejon soft tissue measuring 0.9 x 0.6 x 0.2 cm in aggregate dimensions and ranging from 0.4 to 0.5 cm in maximum dimension. The specimen is submitted entirely in cassette B1. ([facility]; 06/08/2019) TOB/TOB . 02 Pathologist provided ICD-10: K29.80, K29.50 . 02 CPT . 066734, 622945, K44940 Specimen Comment: A courtesy copy of this report has been sent to Specimen Comment: [phone], . Specimen Comment: Report sent to / DR DIGGS Performed at: 01 [facility] [address], [place] [id number] MD Parth Riley MD Phone: [phone] Performed at: 02 [facility] [address] [place], [place] [id number] MD Tevin Toure MD Phone: [phone]
[2019-06-11 19:54] VITALS: BP 105/54
--- NOTE | 2019-06-11 20:25 | RAD ---
PORTABLE CHEST 1V History: Coarse cough Comparison: June 07, 2019 Findings: 2 AP portable views of the chest are submitted. There again has been a median sternotomy, fractures of the superior 2 wires as seen previously. There is again left shoulder arthroplasty. There is again granuloma of the left lung base. No pneumothorax is identified. There is increased mild more linear-appearing opacity near the right base. There is again tortuous, possibly ectatic thoracic aorta. Heart size is similar. Impression: 1. There is now right base atelectasis. Electronically signed by: Ilya Chan MD (06/11/2019 8:22 PM) [facility]
[2019-06-11] MEDS: SIMVASTATIN 40 MG TABLET. PO SCH (20:29)
[2019-06-11] MEDS: INSULIN GLARGINE SYRINGE. SQ SCH (20:37)
[2019-06-11 23:19] VITALS: BP 104/52
[2019-06-12] MEDS: HYDROmorphone 2 MG/ML VIAL IV PRN ×6 (01:23→21:26)
[2019-06-12 03:47] VITALS: BP 111/52
[2019-06-12] MEDS: LEVOTHYROXINE 175 MCG TABLET PO SCH (06:28)
[2019-06-12 07:15] VITALS: BP 110/56
[2019-06-12] MEDS ORDERED: PANTOPRAZOLE 40 MG TABLET.DR. PO SCH (07:30)
[2019-06-12] MEDS: MORPHINE ER 30 MG TABLET.ER PO SCH ×2 (08:26→21:25)
[2019-06-12] MEDS: LOSARTAN POTASSIUM 50 MG TABLET. PO SCH (08:26)
[2019-06-12] MEDS: VITAMIN B COMPLEX TABLET. PO SCH (08:28)
[2019-06-12] MEDS: METOPROLOL SUCC 24HR ER 100 MG TAB.ER.24H. PO SCH (08:29)
[2019-06-12] MEDS: FUROSEMIDE 40 MG TABLET. PO SCH (08:29)
[2019-06-12] MEDS: FINASTERIDE 5 MG TABLET. PO SCH (08:29)
[2019-06-12] MEDS: INSULIN LISPRO 300 UNITS/3 ML VIAL. SQ SCH ×3 (08:36→17:19)
--- NOTE | 2019-06-12 08:43 | NUR ---
SW following pt. Referral faxed to [facility], phone: [phone], fax; [phone]. Pt acceptance and admission pending. Lizzy at [facility] aware pt is able to dc if they accept him. Will continue to follow.
[2019-06-12] MEDS ORDERED: POLYETHYLENE GLYCOL 3350 17 GM PACKET. PO SCH (09:00)
--- NOTE | 2019-06-12 10:30 | PDOC2 ---
FLORA MANNING Ja ENDING MACHINE OPERATOR 06/12/19 1030: UROLOGY CONSULT Date of Consult Date of Consult DATE: 06/12/19 TIME: 10:14 Reason for Consult Reason for Consult: Urinary Retention Referring Physician Referring Physician: Dr. Cool Identification/Chief Complaint Chief Complaint Urinary retention Source Source: Caregiver, Chart review, Patient History of Present Illness Reason for Visit: This 78 year old male presented through the ER at [facility] with several GI complaitns to include N/V and bloody emesis and diarrhea. He has promptly transferred to [facility] for speciality care. Last night he started to have some trouble with urination and so staff bladder scanned him to reveal a volume of 700 +, so a Bledsoe catheter was inserted with roughly the same return. He denies having LUTS or difficulty emptying his bladder prior to this hospitalization. He admits to using prostate medication, but does not know the name of it. He cannot remember when his last CHITRA/prostate check was and denies a history of prostate cancer. Currently his catheter is working well and not bothersome to him. He would prefer to leave it if possible, until his strength has returned enough to get out of bed. Past Medical History Renal/: Benign prostatic enlarg. (Takes BPH medications) Social History <1 pack per day ALCOHOL: occassional Drugs: None Current Medications Current Medications Current Medications Bisacodyl (Dulcolax Tab) 5 mg PRN DAILY PRN PO CONSTIPATION, 2ND CHOICE; Start 06/11/19 at 15:45 Pantoprazole Sodium (Protonix) 40 mg DAILYAC PO Last administered on 06/12/19at 08:36; Start 06/12/19 at 07:30 Polyethylene Glycol (miraLAX PACKET) 17 gm DAILY PO ; Start 06/12/19 at 09:00 Polyethylene Glycol (miraLAX PACKET) 17 gm PRN DAILY PRN PO CONSTIPATION, 1ST CHOICE; Start 06/11/19 at 15:45 Tamsulosin HCl (Flomax) 0.4 mg QHS PO ; Start 06/12/19 at 21:00 Testosterone Cypionate (Depo-Testosterone) 200 mg Q2WKS IM ; Start 06/22/19 at 09:00 Allergies Allergies: Coded Allergies: Penicillins (Verified Allergy, Intermediate, 06/08/19) tapentadol (Verified Allergy, Intermediate, 06/08/19) ROS Review Of Systems: CONSTITUTIONAL: No fever or chills EYES: No recent changes SKIN: No rash or itching CARDIOVASCULAR: No chest pain, syncope, palpitations, or edema RESPIRATORY: No SOB or cough GASTROINTESTINAL: + Diarrhea currently NEUROLOGICAL: No headaches or weakness ENDOCRINE: No cold or heat intolerance GENITOURINARY: Catheter in place, not bothersome, working well MUSCULOSKELETAL: No back pain or joint pain LYMPHATICS: No enlarged lymph nodes PSYCHIATRIC: No anxiety or depression Physical Exam Physical Exam: General: Pleasant, no acute distress, well groomed Eyes: conjunctiva anicteric, eyes full range of motion ENT: moist oral mucosa, normal dentition Neck: Trachea midline, no masses Respiratory: unlabored breathing, not using accessory muscles, Abdomen: nontender, nondistended, no hepatosplenomegaly, no masses : + Bledsoe catheter in place draining clear yellow urine. Device in good working order. Skin: no rashes or skin lesions on visualized skin Psych: normal mood, affect. Alert and oriented x 3. Vitals VITALS Vital Signs Date Time Temp Pulse Resp B/P (MAP) Pulse Ox O2 Delivery O2 Flow Rate FiO2 06/12/19 09:49 95 Room Air 2.0 06/12/19 08:36 71 110/56 06/12/19 07:15 97.8 18 97.8 Labs Labs Laboratory Tests Test 06/10/19 11:16 06/10/19 16:22 06/10/19 21:08 06/11/19 02:55 Glucose (Fingerstick) 180 mg/dL (70-99) 174 mg/dL (70-99) 103 mg/dL (70-99) White Blood Count 10.8 x10^3/uL (4.0-11.0) Red Blood Count 3.44 x10^6/uL (4.30-5.70) Hemoglobin 11.1 g/dL (13.0-17.5) Hematocrit 32.9 % (39.0-53.0) Mean Corpuscular Volume 96 fL (79-100) Mean Corpuscular Hemoglobin 32 pg (25-35) Mean Corpuscular Hemoglobin Concent 34 g/dL (31-37) Red Cell Distribution Width 13.9 % (11.5-14.5) Platelet Count 356 x10^3/uL (140-400) Sodium Level 138 mmol/L (136-145) Potassium Level 3.7 mmol/L (3.5-5.1) Chloride Level 102 mmol/L (98-107) Carbon Dioxide Level 28 mmol/L (21-32) Anion Gap 8 (6-14) Blood Urea Nitrogen 32 mg/dL (8-26) Creatinine 1.5 mg/dL (0.7-1.3) Estimated GFR (Cockcroft-Gault) 45.4 BUN/Creatinine Ratio 21 (6-20) Glucose Level 130 mg/dL (70-99) Calcium Level 9.3 mg/dL (8.5-10.1) Total Bilirubin 0.4 mg/dL (0.2-1.0) Aspartate Amino Transf (AST/SGOT) 11 U/L (15-37) Alanine Aminotransferase (ALT/SGPT) 12 U/L (16-63) Alkaline Phosphatase 64 U/L (46-116) Total Protein 6.0 g/dL (6.4-8.2) Albumin 1.8 g/dL (3.4-5.0) Albumin/Globulin Ratio 0.4 (1.0-1.7) Test 06/11/19 07:46 06/11/19 11:21 06/11/19 16:28 06/11/19 20:27 Glucose (Fingerstick) 115 mg/dL (70-99) 160 mg/dL (70-99) 132 mg/dL (70-99) 219 mg/dL (70-99) Test 06/12/19 07:45 Glucose (Fingerstick) 166 mg/dL (70-99) Laboratory Tests Test 06/11/19 11:21 06/11/19 16:28 06/11/19 20:27 06/12/19 07:45 Glucose (Fingerstick) 160 mg/dL (70-99) 132 mg/dL (70-99) 219 mg/dL (70-99) 166 mg/dL (70-99) Assessment/Plan Assessment/Plan Discussed with patient and family that leaving catheter in place for 2-4 days to allow for bladder healing, bowel normalization (he currently has diarrhea) and strength return is reasonable and ideal. Continue Flomax and Finasteride Recommend follow up with urology 3-4 weeks after discharge for CHITRA/PSA draw (do not recommend lab while in house, as this can come back falsely high). Pt was offered a follow up with [facility] but family member declined, stating they would like to see Dr. Qiu, as he travels to [place]. Family member given our business card, all questions answered Will check on patient periodically throughout the week. JOSEPH CARDOZA MD 06/13/19 1621: UROLOGY CONSULT Assessment/Plan Assessment/Plan agree w above E/FLORA DUQUE APRN Jun 12, 2019 10:30 JOSEPH CARDOZA MD Jun 13, 2019 16:21
[2019-06-12 11:02] VITALS: BP 94/47
--- NOTE | 2019-06-12 11:31 | NUR ---
AUDREY following pt. Pt has been accepted at [facility]. Spoke with RN and Physician, Pt is not ready to dc today; possible abscess vs hematoma. Armando Seay at [facility]. Will continue to follow.
[2019-06-12] MEDS ORDERED: FINASTERIDE 5 MG TABLET. PO SCH (12:00)
--- NOTE | 2019-06-12 12:27 | PDOC ---
Subjective: Subjective: present feeding him Glucerna. Wonders why he hasn't been advanced beyond liquids. Reports diarrhea 4-5 times since yesterday. I asked the patient a few questions re: pain and diarrhea - "I don't know." Objective: Objective: D/w nurse - bill cutter saw him earlier, said turkey w/o gravy was ordered for lunch - pt has been declining solid foods (ate mashed potatoes last night but declined chicken). Also plans to check C Diff per primary - has two stools yesterday and a "squirt" this morning. Vital Signs: Vital Signs Date Time Temp Pulse Resp B/P (MAP) Pulse Ox O2 Delivery O2 Flow Rate FiO2 06/12/19 11:44 95 Nasal Cannula 2.0 06/12/19 11:02 98.7 62 20 94/47 (63) 98.7 Labs: Laboratory Tests Test 06/11/19 16:28 06/11/19 20:27 06/12/19 07:45 06/12/19 10:59 Glucose (Fingerstick) 132 mg/dL 219 mg/dL 166 mg/dL 208 mg/dL Diagnosis: A. Duodenal biopsies, duodenal ulcer. - Segments of duodenal and gastric antral mucosa showing edema and acute and chronic inflammation. B. Gastric biopsies: - Chronic gastritis, mild. Comment: Sections of the duodenal ulcer biopsy reveal segments of duodenal and gastric antral mucosa showing edema and acute and chronic inflammation. There is no evidence of malignancy. Sections of the gastric biopsy reveal segments of gastric antral and gastric body mucosa showing congestion and mild chronic inflammation. A properly controlled immunoperoxidase stain for Helicobacter is negative for Helicobacter organisms. There is no evidence of malignancy. Imaging: Upper Extrem CT pending LUE US IMPRESSION: 1. No evidence of thrombus involving the left internal jugular, subclavian, cephalic radial veins. 2. Other left upper extremity veins cannot be visualized due to limited patient mobility. 3. Apparent large complex collection in the lateral soft tissues of the shoulder and upper arm. Uncertain etiology, could represent hematoma or abscess depending on clinical concern. PE: GEN: NAD, laying in bed, helping him w/ Glucerna LUNGS: NC 2L HEART: RRR ABD: NABS, S/ND/NT NEURO/PSYCH: A & O �3, flat A/P: Erosive esophagitis, non-erosive gastritis, cratered DU - path as above Diarrhea ACD Urinary retention - urology following, has Bledsoe Abnormal LUE imaging - ortho asked to comment -- Regular diet. Continue PPI - d/w . H/o OIC - now diarrhea - can hold Miralax, etc. and await C Diff per primary. Previous imaging w/ large volume stool/possible impaction - could consider AAS r/o overflow. GERALD SMITH Jun 12, 2019 12:27
[2019-06-12 15:06] VITALS: BP 121/60
--- NOTE | 2019-06-12 15:08 | PN ---
DATE: 06/12/2019 SUBJECTIVE: The patient is resting slightly propped up in bed, no apparent distress. Currently, he developed recurrent bouts of cough with scanty sputum. He also was noted to have markedly swollen left upper extremity; however, the venous Doppler ultrasound was negative for DVT. He also has retaining urine and an indwelling Bledsoe catheter was placed successfully. He also developed recurrent bouts of loose bowel movement. Denied any nausea or vomiting. PHYSICAL EXAMINATION: GENERAL: When I examined him this morning, he was resting slightly propped up in bed, in no apparent distress, pale, no jaundice, cyanosis or thyromegaly. No jugular venous distention. No limb edema. VITAL SIGNS: His heart rate was 71, blood pressure was 110/56, temperature was 97.8, respiratory rate was 18 and oxygen saturation was 95% on 2 liters of oxygen. HEAD, EYES, EARS, NOSE AND THROAT: Showed normocephalic, atraumatic. NECK: Supple. CARDIAC: Showed normal first and second heart sounds. No gallop, rub or murmur. CHEST: Clear to auscultation. No crepitation or rhonchi. ABDOMEN: Distended, soft and nontender. NEUROLOGIC: He was awake, alert, responding appropriately. Cranial nerves intact. He moves upper extremities to much good extent. Lower extremities, mostly bedbound. His intake over the last 24 hours was 660, output was 1275. LABORATORY DATA: As of yesterday, his serum sodium was 138, potassium 3.7, chloride 102, bicarbonate 28, anion gap of 8, BUN 32, creatinine 1.5, estimated GFR was 45 mL per minute. His glucose 130, calcium was 9.3. Total bilirubin, AST, ALT, alkaline phosphatase were normal. Total protein was 6, albumin was 1.8. His white cell count was 10,800, hemoglobin 11, hematocrit 33, MCV 96 and platelet count 356,000. His chest x-ray showed that the patient has right new base atelectasis; however, he is afebrile. His white cell count is normal. His venous Doppler ultrasound of his left upper extremity showed that there is no evidence of thrombus involving the left internal jugular, subclavian cephalic, radial veins, other left upper extremity veins cannot be visualized due to limited patient's mobility. He apparently has large complex collection in the lateral soft tissue of the shoulder and upper arm, uncertain etiology, could represent hematoma or abscess to be in clinical concern. PLAN: We have to send stool for C. difficile. I will arrange for him to have a CT scan of his left shoulder and to consult the orthopedic surgeon. Meanwhile, I have consulted the urologist as well as the host/hostess head and repeated his lab work. KERI DIGGS MD DR: PAIGE/chastity JOB#: [id number] / [id number]
--- NOTE | 2019-06-12 15:42 | PDOC2 ---
CONSULT Date of Consult Date of Consult DATE: 06/12/19 TIME: 15:23 Reason for Consult Reason for Consult: Left shoulder fluid collection Referring Physician Referring Physician: Santi Identification/Chief Complaint Chief Complaint Left shoulder pain and swelling Source Source: Chart review, Patient History of Present Illness Reason for Visit: This 78-year-old man had left shoulder reverse arthroplasty by Dr. Simon Martinez at in 2007. He describes having multiple operations, about 4 of them. He said he saw Dr. Martinez about a week ago, and Dr. Martinez recommended no treatment. The patient says he's had increased problem with the shoulder since an ambulance ride in November when he was strapped down tightly. He is not sure if the swelling is worse today than it was last week when he saw Dr. Martinez. He says it is painful and swollen, and he has difficulty with motion Past Medical History Renal/: Benign prostatic enlarg. (Takes BPH medications) Past Surgical History Past Surgical History: Other (left shoulder reverse arthroplasty) Social History <1 pack per day ALCOHOL: occassional Drugs: None Current Medications Current Medications Current Medications Pantoprazole Sodium (PROTONIX VIAL for IV PUSH) 40 mg BID IVP Last administered on 06/11/19at 09:22; Start 06/07/19 at 21:00; Stop 06/11/19 at 12:41; Status DC Sodium Chloride 1,000 ml @ 75 mls/hr [id number] IV Last administered on 06/09/19at 11:36; Start 06/07/19 at 16:30; Stop 06/09/19 at 12:08; Status DC Bisacodyl (Dulcolax Supp) 10 mg 1X ONCE HI Last administered on 06/07/19at 21:40; Start 06/07/19 at 17:45; Stop 06/07/19 at 17:46; Status DC Hydromorphone HCl (Dilaudid) 1 mg PRN Q4HRS PRN IVP PAIN Last administered on 06/07/19at 18:04; Start 06/07/19 at 17:45; Stop 06/07/19 at 21:48; Status DC Lorazepam (Ativan) 0.5 mg PRN Q6HRS PRN PO ANXIETY / AGITATION; Start 06/07/19 at 18:00; Stop 06/07/19 at 18:14; Status DC Nicotine (Nicoderm Cq 21mg) 1 patch PRN DAILY PRN TD SMOKING CESSATION; Start 06/07/19 at 18:00; Stop 06/07/19 at 18:14; Status DC Hydromorphone HCl (Dilaudid) 2 mg PRN Q3HRS PRN IV PAIN Last administered on 06/12/19at 12:50; Start 06/07/19 at 22:00 Ringer's Solution 1,000 ml @ 75 mls/hr [id number] IV Last administered on 06/08/19at 14:01; Start 06/08/19 at 09:15; Stop 06/09/19 at 08:01; Status DC Propofol 20 ml @ As Directed STK-MED ONCE IV ; Start 06/08/19 at 10:20; Stop 06/08/19 at 10:20; Status DC Lidocaine HCl (Lidocaine Pf 2% Vial) 5 ml STK-MED ONCE .ROUTE ; Start 06/08/19 at 10:20; Stop 06/08/19 at 10:20; Status DC Finasteride (Proscar) 5 mg DAILY PO Last administered on 06/12/19at 08:36; Start 06/08/19 at 12:00 Furosemide (Lasix) 40 mg DAILY PO Last administered on 06/12/19 08:36; Start 06/08/19 at 12:00 Levothyroxine Sodium (Synthroid) 175 mcg DAILY06 PO Last administered on 06/12/19 06:28; Start 06/08/19 at 12:00 Simvastatin (Zocor) 40 mg QHS PO Last administered on 06/11/19at 20:37; Start 06/08/19 at 21:00 Testosterone Cypionate (Depo-Testosterone) 200 mg Q2WKS IM ; Start 06/22/19 at 09:00 Vitamin B Complex (Bud B) 1 tab DAILY PO Last administered on 06/12/19 08:36; Start 06/08/19 at 12:00 Insulin Glargine (Lantus Syringe) 30 unit QHS SQ Last administered on 06/11/19at 20:37; Start 06/08/19 at 21:00 Non-Formulary Medication (Insuln Asp Prt/ Insulin Aspart (Novolog Mix 70-30 Flexpen Syrn)) 1 unit BIDACBL SQ ; Start 06/08/19 at 11:30; Stop 06/08/19 at 19:34; Status DC Losartan Potassium (Cozaar) 100 mg DAILY PO Last administered on 06/12/19at 08:36; Start 06/08/19 at 12:00 Metoprolol Succinate (Toprol Xl) 200 mg DAILY PO Last administered on 06/12/19at 08:36; Start 06/08/19 at 12:00 Morphine Sulfate (Ms Contin) 60 mg BID PO Last administered on 06/12/19at 08:36; Start 06/08/19 at 12:00 Nifedipine (Procardia Xl) 60 mg DAILY PO Last administered on 06/12/19at 08:36; Start 06/08/19 at 12:00 Insulin Human Lispro (HumaLOG) 0-5 UNITS TIDWMEALS SQ Last administered on 06/09/19at 11:36; Start 06/08/19 at 17:00; Stop 06/09/19 at 11:38; Status DC Dextrose (Dextrose 50%-Water Syringe) 12.5 gm PRN Q15MIN PRN IV SEE COMMENTS; Start 06/08/19 at 15:30; Stop 06/09/19 at 15:19; Status DC Dextrose 250 ml PRN Q15MIN PRN IV SEE COMMENTS; Start 06/08/19 at 15:30; Stop 06/09/19 at 15:19; Status DC Insulin Human Lispro (HumaLOG) 0-9 UNITS TIDWMEALS SQ Last administered on 06/12/19at 12:50; Start 06/09/19 at 12:00 Dextrose (Dextrose 50%-Water Syringe) 12.5 gm PRN Q15MIN PRN IV SEE COMMENTS; Start 06/09/19 at 11:45 Dextrose 250 ml PRN Q15MIN PRN IV SEE COMMENTS; Start 06/09/19 at 11:45; Stop 06/09/19 at 15:19; Status DC Pantoprazole Sodium (Protonix) 40 mg DAILYAC PO Last administered on 06/12/19at 08:36; Start 06/12/19 at 07:30 Polyethylene Glycol (miraLAX PACKET) 17 gm DAILY PO ; Start 06/12/19 at 09:00; Stop 06/12/19 at 12:28; Status DC Polyethylene Glycol (miraLAX PACKET) 17 gm PRN DAILY PRN PO CONSTIPATION, 1ST CHOICE; Start 06/11/19 at 15:45 Bisacodyl (Dulcolax Tab) 5 mg PRN DAILY PRN PO CONSTIPATION, 2ND CHOICE; Start 06/11/19 at 15:45 Tamsulosin HCl (Flomax) 0.4 mg QHS PO ; Start 06/12/19 at 21:00 Finasteride (Proscar) 5 mg DAILY PO ; Start 06/12/19 at 12:00 Active Scripts Active Reported Foltx Tablet (B12/Levomefolate Calcium/B-6) 1 Each Tablet 1 Each PO AFTRNOON Testosterone Cypionate 200 Mg/1 Ml Vial 1 Ml IM Q2WKS Novolog Mix 70-30 Flexpen Syrn (Insuln Asp Prt/Insulin Aspart) 100 Unit/1 Ml Insuln.pen 1 Unit SQ BIDACBL Lantus Solostar (Insulin Glargine,Hum.rec.anlog) 100 Unit/1 Ml Insuln.pen 30 Unit SQ QHS Nifedipine Er (Nifedipine) 60 Mg Tab.er.24 1 Tab PO DAILY Morphine Sulfate Er (Morphine Sulfate) 60 Mg Tablet.er 1 Tab PO BID Furosemide 40 Mg Tablet 40 Mg PO DAILY Finasteride 5 Mg Tablet 1 Tab PO DAILY Simvastatin 40 Mg Tablet 1 Tab PO QHS Metoprolol Succinate ( Xl ) (Metoprolol Succinate) 200 Mg Tab.er.24h 1 Tab PO DAILY Levothyroxine Sodium 175 Mcg Tablet 1 Tab PO DAILY Losartan-Hctz 100-12.5 Mg Tab (Losartan/Hydrochlorothiazide) 1 Each Tablet 1 Tab PO DAILY Allergies Allergies: Coded Allergies: Penicillins (Verified Allergy, Intermediate, 06/08/19) tapentadol (Verified Allergy, Intermediate, 06/08/19) Physical Exam General: Alert, Cooperative HEENT: Atraumatic Extremities: Other (the left shoulder has a well-healed surgical scar for deltopectoral approach. There is swelling and probable effusion of the joint. There is slight warmth but there is no erythema or drainage. There seems to be quite a bit of fluid around the shoulder area, and extending down to the deltoid insertion. This is warm enough to at least consider infection. The patient is nearly immobile with the shoulder, it was painful to do any range of motion actively or passively, and I left him with the arm resting at the side with his hand on his abdomen. His fingers are a bit swollen, so the range of motion is difficult but it does not seem that there is any nerve or arterial compromise distally. Capillary refill is normal, the sensation is normal, and he was still able to demonstrate motor function to indicate radial ulnar and median nerve function. 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) Vitals VITALS Vital Signs Date Time Temp Pulse Resp B/P (MAP) Pulse Ox O2 Delivery O2 Flow Rate FiO2 06/12/19 15:06 97.8 74 20 121/60 (80) 97 Room Air 97.8 06/12/19 12:50 2.0 Labs Labs Laboratory Tests Test 06/10/19 16:22 06/10/19 21:08 06/11/19 02:55 06/11/19 07:46 Glucose (Fingerstick) 174 mg/dL (70-99) 103 mg/dL (70-99) 115 mg/dL (70-99) White Blood Count 10.8 x10^3/uL (4.0-11.0) Red Blood Count 3.44 x10^6/uL (4.30-5.70) Hemoglobin 11.1 g/dL (13.0-17.5) Hematocrit 32.9 % (39.0-53.0) Mean Corpuscular Volume 96 fL (79-100) Mean Corpuscular Hemoglobin 32 pg (25-35) Mean Corpuscular Hemoglobin Concent 34 g/dL (31-37) Red Cell Distribution Width 13.9 % (11.5-14.5) Platelet Count 356 x10^3/uL (140-400) Sodium Level 138 mmol/L (136-145) Potassium Level 3.7 mmol/L (3.5-5.1) Chloride Level 102 mmol/L (98-107) Carbon Dioxide Level 28 mmol/L (21-32) Anion Gap 8 (6-14) Blood Urea Nitrogen 32 mg/dL (8-26) Creatinine 1.5 mg/dL (0.7-1.3) Estimated GFR (Cockcroft-Gault) 45.4 BUN/Creatinine Ratio 21 (6-20) Glucose Level 130 mg/dL (70-99) Calcium Level 9.3 mg/dL (8.5-10.1) Total Bilirubin 0.4 mg/dL (0.2-1.0) Aspartate Amino Transf (AST/SGOT) 11 U/L (15-37) Alanine Aminotransferase (ALT/SGPT) 12 U/L (16-63) Alkaline Phosphatase 64 U/L (46-116) Total Protein 6.0 g/dL (6.4-8.2) Albumin 1.8 g/dL (3.4-5.0) Albumin/Globulin Ratio 0.4 (1.0-1.7) Test 06/11/19 11:21 06/11/19 16:28 06/11/19 20:27 06/12/19 07:45 Glucose (Fingerstick) 160 mg/dL (70-99) 132 mg/dL (70-99) 219 mg/dL (70-99) 166 mg/dL (70-99) Test 06/12/19 10:59 Glucose (Fingerstick) 208 mg/dL (70-99) Laboratory Tests Test 06/11/19 16:28 06/11/19 20:27 06/12/19 07:45 06/12/19 10:59 Glucose (Fingerstick) 132 mg/dL (70-99) 219 mg/dL (70-99) 166 mg/dL (70-99) 208 mg/dL (70-99) Images Images CT scan was done recently and has not yet been read. I reviewed the images. There is a lot of metal artifacts so there is difficulty with interpretation. An ultrasound was also done which shows a fluid collection. Based on the CT images I believe reverse shoulder arthroplasty is dislocated and the glenohumeral articulation is unstable and lax. There is probably a shoulder effusion. There are cerclage cables around the upper humerus, securing the humerus and the stem of the prosthesis and a possible strut graft. I don't see obvious loosening or fracture. The hemarthrosis or other anterior fluid collection is seen on series 2 image 60, with a denser fluid near the joint and either air/gas or much less dense fluid far anterior near the subcutaneous tissue. Prior CXR also shows the unstable glenohumeral joint. Assessment/Plan Assessment/Plan Left shoulder reverse arthroplasty Left shoulder fluid collection, most likely a hemarthrosis, but can't rule out infection. Left shoulder instability, probably chronic, and patient recently saw Dr. Martinez who recommended nonsurgical treatment. I recommended to the patient bedside shoulder aspiration of the large fluid collection and send the fluid for specimen to the lab. (This could also be done as an image guided procedure, but image guidance seems unnecessary since the fluid is easily palpable on exam. Aspiration would likely help his symptoms, and to help rule out infection. The fluid could be blood, could be excessive joint fluid, or could be infected (or combinations of those). Unfortunately, the patient is reluctant to allow me to do anything to his shoulder, and he was reluctant/refused to allow me to aspirate or even take regular x-rays. I have quite a bit of information about the shoulder from the exam, ultrasound, the CT scan, and chest x-ray, but shoulder x-rays would be preferable. He is probably into much pain currently to take routine x-rays anyway, so we can hold off on those for now. He would rather get Dr. Martinez involved. I understand his desires--this is a complex problem and he's had a lot of surgeries on this shoulder with Dr. Martinez. If he has an infected shoulder arthroplasty he likely would need more definitive care at a tertiary care hospital--usually implant removal is needed for infected joint prostheses. I have never removed a reverse arthroplasty before, and I don't believe my partners have either. I placed a phone call and left a message at Dr. Martinez's office [phone] Martinez to call my on my cell phone. I did recommend aspiration and if Dr. Martinez agrees hopefully the patient will agree to aspiration as well. I will order ESR and CRP to further assess for possible infection. Hopefully it is not infected, just has a hemarthrosis, and may get better with observation. Use icepacks for now. BRITT TANG MD Jun 12, 2019 15:42
--- NOTE | 2019-06-12 16:07 | RAD ---
Examination: CT UPPR EXTREMTY WO CONTRST LT History: Left upper extremity collection on ultrasound exam. Comparison/Correlation: Left upper extremity venous duplex ultrasound exam Findings: Axial images of the proximal left upper extremity were obtained without contrast. IV contrast was not administered due to reported history of chronic kidney disease. Sagittal and coronal reformatted images were provided. Left glenohumeral joint arthroplasty noted. Wires about the proximal and mid left humerus noted. There is a large complex fluid collection with scattered nondependent gas within it. This is noted primarily anterior to the left humerus. This measures 8.1 cm transverse by 6.1 cm anteroposterior by 10.3 cm longitudinal. Fluid extends superiorly about the glenohumeral joint and along its posterior aspect is well. Fluid collection involving the left lateral deltoid muscle region is also present gas within. This collection measures up to 4 cm in diameter. Curvilinear density involving the left apex measuring up to 2.4 cm transverse by 0.8 cm anteroposterior by 0.4 cm longitudinal is present within the upper lobe abutting the major fissure.. Minimal calcification is noted within it. Impression: Large collection is noted anterior to the left humerus and about the left shoulder extending posteriorly and into the lateral deltoid region. Gas noted within. Findings of concern for abscess. Correlate for underlying hematoma. Correlate with intervention. Curvilinear density noted involving the left upper lung field. Correlate with prior exams if available to assess stability. Correlate with risk factors for lung carcinoma in determining further evaluation with PET CT exam. If no significant risk factors are present, interval follow-up chest CT in 3 months may be considered to assess stability. Electronically signed by: Saeid Donovan MD (06/12/2019 4:04 PM) [facility]
--- NOTE | 2019-06-12 17:28 | PDOC ---
PULMONARY PROGRESS NOTES Vitals Vital Signs Date Time Temp Pulse Resp B/P (MAP) Pulse Ox O2 Delivery O2 Flow Rate FiO2 06/12/19 17:19 97 Nasal Cannula 2.0 06/12/19 15:06 97.8 74 20 121/60 (80) 97.8 Labs Laboratory Tests Test 06/10/19 21:08 06/11/19 02:55 06/11/19 07:46 06/11/19 11:21 Glucose (Fingerstick) 103 mg/dL (70-99) 115 mg/dL (70-99) 160 mg/dL (70-99) White Blood Count 10.8 x10^3/uL (4.0-11.0) Red Blood Count 3.44 x10^6/uL (4.30-5.70) Hemoglobin 11.1 g/dL (13.0-17.5) Hematocrit 32.9 % (39.0-53.0) Mean Corpuscular Volume 96 fL (79-100) Mean Corpuscular Hemoglobin 32 pg (25-35) Mean Corpuscular Hemoglobin Concent 34 g/dL (31-37) Red Cell Distribution Width 13.9 % (11.5-14.5) Platelet Count 356 x10^3/uL (140-400) Sodium Level 138 mmol/L (136-145) Potassium Level 3.7 mmol/L (3.5-5.1) Chloride Level 102 mmol/L (98-107) Carbon Dioxide Level 28 mmol/L (21-32) Anion Gap 8 (6-14) Blood Urea Nitrogen 32 mg/dL (8-26) Creatinine 1.5 mg/dL (0.7-1.3) Estimated GFR (Cockcroft-Gault) 45.4 BUN/Creatinine Ratio 21 (6-20) Glucose Level 130 mg/dL (70-99) Calcium Level 9.3 mg/dL (8.5-10.1) Total Bilirubin 0.4 mg/dL (0.2-1.0) Aspartate Amino Transf (AST/SGOT) 11 U/L (15-37) Alanine Aminotransferase (ALT/SGPT) 12 U/L (16-63) Alkaline Phosphatase 64 U/L (46-116) Total Protein 6.0 g/dL (6.4-8.2) Albumin 1.8 g/dL (3.4-5.0) Albumin/Globulin Ratio 0.4 (1.0-1.7) Test 06/11/19 16:28 06/11/19 20:27 06/12/19 07:45 06/12/19 10:59 Glucose (Fingerstick) 132 mg/dL (70-99) 219 mg/dL (70-99) 166 mg/dL (70-99) 208 mg/dL (70-99) Test 06/12/19 17:01 Glucose (Fingerstick) 157 mg/dL (70-99) Laboratory Tests Test 06/11/19 20:27 06/12/19 07:45 06/12/19 10:59 06/12/19 17:01 Glucose (Fingerstick) 219 mg/dL (70-99) 166 mg/dL (70-99) 208 mg/dL (70-99) 157 mg/dL (70-99) Medications Active Scripts Medications Dose Route/Sig Max Daily Dose Days Date Category Foltx Tablet (B12/Levomefolate Calcium/B-6) 1 Each Tablet 1 Each PO AFTRNOON 06/07/19 Reported Testosterone Cypionate 200 Mg/1 Ml Vial 1 Ml IM Q2WKS 06/07/19 Reported Novolog Mix 70-30 Flexpen Syrn (Insuln Asp Prt/Insulin Aspart) 100 Unit/1 Ml Insuln.pen 1 Unit SQ BIDACBL 06/07/19 Reported Lantus Solostar (Insulin Glargine,Hum.rec.anlog) 100 Unit/1 Ml Insuln.pen 30 Unit SQ QHS 06/07/19 Reported Nifedipine Er (Nifedipine) 60 Mg Tab.er.24 1 Tab PO DAILY 06/07/19 Reported Morphine Sulfate Er (Morphine Sulfate) 60 Mg Tablet.er 1 Tab PO BID 06/07/19 Reported Furosemide 40 Mg Tablet 40 Mg PO DAILY 06/07/19 Reported Finasteride 5 Mg Tablet 1 Tab PO DAILY 06/07/19 Reported Simvastatin 40 Mg Tablet 1 Tab PO QHS 06/07/19 Reported Metoprolol Succinate ( Xl ) (Metoprolol Succinate) 200 Mg Tab.er.24h 1 Tab PO DAILY 06/07/19 Reported Levothyroxine Sodium 175 Mcg Tablet 1 Tab PO DAILY 06/07/19 Reported Losartan-Hctz 100-12.5 Mg Tab (Losartan/Hydrochlorothiazide) 1 Each Tablet 1 Tab PO DAILY 06/07/19 Reported Impression . NOTE DICTATED ATELECTASIS/COPD NO NEED FOR ANTIBX IS 02 EDMAR GARG MD Jun 12, 2019 17:28
[2019-06-12 19:10] VITALS: BP 93/43
[2019-06-12] MEDS: SIMVASTATIN 40 MG TABLET. PO SCH (21:00)
[2019-06-12] MEDS: TAMSULOSIN 0.4 MG CAP.ER.24H. PO SCH (21:25)
[2019-06-12] MEDS: INSULIN GLARGINE SYRINGE. SQ SCH (21:33)
[2019-06-12 23:40] VITALS: BP 104/46
--- NOTE | 2019-06-13 01:37 | CONS ---
DATE OF CONSULTATION: 06/12/2019 ATTENDING PHYSICIAN: Dr. Venkata Hancock CONSULTING PHYSICIAN: Edmar Garg MD REASON FOR CONSULTATION: The patient seen in pulmonary consultation at the request of Dr. Hancock for abnormal chest x-ray revealing atelectasis. HISTORY OF PRESENT ILLNESS: The patient is a 78-year-old who was transferred from [facility] with GI discomfort. He had some black emesis occurred at 6:30 a.m. The patient has been evaluated by GI service. He had a chest x-ray, but that was reviewed. There was some atelectasis. I was asked to see him in consultation. He had an EGD with biopsy on 06/08/2019. EGD revealed erosive esophagitis, nonerosive gastritis. The patient smokes and continues to do so. He has no underlying COPD, does not wear oxygen at home, has had no recent acute bronchitis or pneumonia. PAST MEDICAL HISTORY: Otherwise remarkable for coronary artery disease, hypertension, diabetes, hypothyroidism, chronic pain, constipation, neurofibromatosis, BPH, depression. He has had previous coronary artery bypass grafting. He has had a complication of sternal wound dehiscence. He has a mesh in place. He has had previous right hand surgery, left shoulder surgery. PAST SURGICAL HISTORY: As above. FAMILY HISTORY: No lung disorders. SOCIAL HISTORY: Smokes less than half a pack of cigarettes. Occasional use of alcohol. 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 REVIEW OF SYSTEMS: CONSTITUTIONAL: No fever or chills. EYES: No change in visual acuity. HENT: No nasal congestion or sore throat. PULMONARY: As indicated above. CARDIOVASCULAR: No chest pain. No pressure. GASTROINTESTINAL: As indicated above. GENITOURINARY: No dysuria or frequency. MUSCULOSKELETAL: No localized muscle aches or joint pains. SKIN: No new skin rashes. NEUROLOGIC: No headaches, diplopia or blurred vision. CURRENT MEDICATIONS: List was reviewed. ALLERGIES: PENICILLIN AND TAPENTADOL. PHYSICAL EXAMINATION: VITAL SIGNS: Stable. O2 saturation currently on 2 liters was greater than 92%. HEENT: Eyes, sclerae were nonicteric. NECK: Jugular venous distention, was not elevated. No lymphadenopathy. CHEST: Full expansion. LUNGS: Diminished breath sounds in the bases. CARDIOVASCULAR: Regular rate and rhythm with S1, S2, no S3. ABDOMEN: Soft, ventral hernia. EXTREMITIES: No clubbing, cyanosis, some edema. NEUROLOGICAL: The patient was awake, alert, following commands. A detailed neuro exam was not performed. LABORATORY DATA: Reviewed. White count was normal. Electrolytes were noted. RADIOLOGICAL DATA: Chest x-ray as indicated above. IMPRESSION: 1. Abnormal x-ray secondary to atelectasis. 2. Respiratory distress secondary to above. 3. Erosive gastritis. 4. Diarrhea. 5. Coronary artery disease, status post coronary artery bypass grafting. PLAN: 1. Respiratory status is compensated. We will continue pulmonary hygiene with incentive spirometry. 2. No need for antibiotics. 3. Follow other consultants' input. 4. I do appreciate the privilege in sharing in the patient's care. EDMAR GARG MD DR: ARAMIS/chastity JOB#: [id number] / [id number]
[2019-06-13 03:12] VITALS: BP 100/39
[2019-06-13] MEDS: HYDROmorphone 2 MG/ML VIAL IV PRN ×5 (03:32→22:15)
[2019-06-13 03:58] LABS: HEMATOCRIT 34.7 % (39.0-53.0); HEMOGLOBIN 11.5 g/dL (13.0-17.5); RED BLOOD COUNT 3.67 x10^6/uL (4.30-5.70); RED CELL DISTRIBUTION WIDTH 13.9 % (11.5-14.5); WHITE BLOOD COUNT 20.8 x10^3/uL (4.0-11.0)
[2019-06-13 04:19] LABS: ALBUMIN 1.4 g/dL (3.4-5.0); ALBUMIN/GLOBULIN RATIO 0.3 (1.0-1.7); C-REACTIVE PROTEIN 205.1 mg/L (0-3.3); CALCIUM 8.3 mg/dL (8.5-10.1); CREATININE 2.3 mg/dL (0.7-1.3); GFR 27.7; POTASSIUM 4.4 mmol/L (3.5-5.1); TOTAL BILIRUBIN 0.8 mg/dL (0.2-1.0); TOTAL PROTEIN 5.5 g/dL (6.4-8.2)
[2019-06-13] MEDS: LEVOTHYROXINE 175 MCG TABLET PO SCH (06:18)
[2019-06-13 07:30] VITALS: BP 110/59
[2019-06-13] MEDS: INSULIN LISPRO 300 UNITS/3 ML VIAL. SQ SCH ×3 (08:00→17:00)
[2019-06-13] MEDS: FUROSEMIDE 40 MG TABLET. PO SCH (09:00)
[2019-06-13] MEDS: LOSARTAN POTASSIUM 50 MG TABLET. PO SCH (09:00)
[2019-06-13] MEDS: MORPHINE ER 30 MG TABLET.ER PO SCH ×2 (09:00→21:00)
[2019-06-13] MEDS: VITAMIN B COMPLEX TABLET. PO SCH (09:00)
[2019-06-13] MEDS: FINASTERIDE 5 MG TABLET. PO SCH (09:00)
[2019-06-13] MEDS: METOPROLOL SUCC 24HR ER 100 MG TAB.ER.24H. PO SCH (09:00)
[2019-06-13] MEDS ORDERED: ONDANSETRON PF 4 MG/2 ML VIAL. ONE (09:39)
[2019-06-13] MEDS: IV NORMAL SALINE 1000ML BAG 1,000 ML IV SCH ×2 (09:44→22:14)
[2019-06-13] MEDS ORDERED: ONDANSETRON PF 4 MG/2 ML VIAL. IV PRN (09:45)
[2019-06-13] MEDS ORDERED: IV NORMAL SALINE 500ML BAG 500 ML IV ONE (10:00)
--- NOTE | 2019-06-13 10:48 | PN ---
DATE: 06/13/2019 SUBJECTIVE: The patient is resting, slightly propped up in bed, in no apparent respiratory distress. He is awake, alert, complaining of nausea and hiccupping. He did have large bowel movement last night. He also complained of abdominal pain. His CT scan of the left shoulder showed that there is a large collection noted anterior to the left humerus and about the left shoulder extending posteriorly and into the lateral deltoid region. Gas noted within the findings, concern for an abscess, correlate for underlying hematoma, correlate with intervention. He has also some curvilinear density noted involving the left upper lung field. PHYSICAL EXAMINATION: GENERAL: When I examined him this morning, he looked pale, but no jaundice, cyanosis or thyromegaly. No jugular venous distention. No lower limb edema. VITAL SIGNS: His heart rate was 76, blood pressure 110/59, temperature was 97.8, respiratory rate was 20, and oxygen saturation was 96% on 2 liters of oxygen. HEAD, EYES, EARS, NOSE AND THROAT: Showed normocephalic, atraumatic. NECK: Supple. HEART: Showed normal first and second heart sounds. No gallop, rub or murmur. CHEST: Clear to auscultation. No crepitation or rhonchi. ABDOMEN: Distended, soft. Tenderness mostly in the left lower quadrant. No guarding or rigidity. No organomegaly. All hernial orifice intact. Bowel sounds normal. NEUROLOGIC: He was awake, alert, responding appropriately. He moves his upper extremities to much good extent than lower extremities. His intake over the last 24 hours was 1000, output was 1000. LABORATORY DATA: Her lab work this morning showed a white cell count 20,800, hemoglobin 11.5, hematocrit 34, MCV 95, platelet count 385,000. His sedimentation rate was 43 mmHg. Serum sodium was 135, potassium 4.4, chloride 101, bicarbonate 24, anion gap of 12, BUN 58, creatinine 2.3, estimated GFR was 28 mL per minute, his glucose 142, calcium was 8.3. Total bilirubin, AST, ALT were normal. Alkaline phosphatase slightly elevated. C-reactive protein was high at 105 mg/dL. Total protein was 5.5, albumin was 1.4. His chest x-ray showed there is no right base atelectasis. The CT scan and venous Doppler ultrasound of left upper extremity showed no evidence of deep vein thrombosis and a CT scan confirmed that there is a large mass or large collection noted anterior to the left humerus and about the left shoulder extending posterior to the lateral deltoid region. Gas is noted within finding concerning for an abscess. ASSESSMENT: 1. The patient was admitted with hematemesis with findings erosive esophagitis, erosive gastritis and cratered ulcer bulb with clean base, status post biopsy. The biopsy was negative for malignancy and Helicobacter organisms. 2. The patient developed urinary retention for which he had an indwelling Bledsoe catheter. We will start him on Flomax and finasteride. 3. Acute on chronic kidney injury. Creatinine has risen from 1.5 to 2.4 for which we started him on IV fluid, given a bolus of 500 mL continuous at 125 mL per hour. 4. Abscess or hematoma around the left shoulder with marked leukocytosis as well as elevated sed rate and C-reactive protein. There was gas also in the fluid collection, raising possibility of an abscess. PLAN: My plan is to consult the interventional radiologist and Infectious Disease specialist to start perhaps the antibiotic treatment after appropriate biopsies for fluid, sent for culture and sensitivity. I explained all these things to his and apparently Dr. Omalley saw the patient and he is communicating with the orthopedic surgeon at [facility]. KERI DIGGS MD DR: PAIGE/chastity JOB#: [id number] / [id number]
--- NOTE | 2019-06-13 10:52 | PDOC ---
Infectious Disease Note Vital Sign Vital Signs Vital Signs Date Time Temp Pulse Resp B/P (MAP) Pulse Ox O2 Delivery O2 Flow Rate FiO2 06/13/19 08:00 Room Air 06/13/19 07:39 96 2.0 06/13/19 07:30 97.8 76 20 110/59 (76) 97.8 Labs Lab Laboratory Tests Test 06/12/19 10:59 06/12/19 17:01 06/12/19 21:18 06/13/19 02:35 Glucose (Fingerstick) 208 mg/dL (70-99) 157 mg/dL (70-99) 124 mg/dL (70-99) White Blood Count 20.8 x10^3/uL (4.0-11.0) Red Blood Count 3.67 x10^6/uL (4.30-5.70) Hemoglobin 11.5 g/dL (13.0-17.5) Hematocrit 34.7 % (39.0-53.0) Mean Corpuscular Volume 95 fL (79-100) Mean Corpuscular Hemoglobin 31 pg (25-35) Mean Corpuscular Hemoglobin Concent 33 g/dL (31-37) Red Cell Distribution Width 13.9 % (11.5-14.5) Platelet Count 385 x10^3/uL (140-400) Erythrocyte Sedimentation Rate 43 (0-15) Sodium Level 137 mmol/L (136-145) Potassium Level 4.4 mmol/L (3.5-5.1) Chloride Level 101 mmol/L (98-107) Carbon Dioxide Level 24 mmol/L (21-32) Anion Gap 12 (6-14) Blood Urea Nitrogen 58 mg/dL (8-26) Creatinine 2.3 mg/dL (0.7-1.3) Estimated GFR (Cockcroft-Gault) 27.7 BUN/Creatinine Ratio 25 (6-20) Glucose Level 142 mg/dL (70-99) Calcium Level 8.3 mg/dL (8.5-10.1) Total Bilirubin 0.8 mg/dL (0.2-1.0) Aspartate Amino Transf (AST/SGOT) 13 U/L (15-37) Alanine Aminotransferase (ALT/SGPT) 9 U/L (16-63) Alkaline Phosphatase 135 U/L (46-116) C-Reactive Protein, Quantitative 205.1 mg/L (0-3.3) Total Protein 5.5 g/dL (6.4-8.2) Albumin 1.4 g/dL (3.4-5.0) Albumin/Globulin Ratio 0.3 (1.0-1.7) Test 06/13/19 07:40 Glucose (Fingerstick) 181 mg/dL (70-99) Micro CT Left UE 06/12 Impression: Large collection is noted anterior to the left humerus and about the left shoulder extending posteriorly and into the lateral deltoid region. Gas noted within. Findings of concern for abscess. Correlate for underlying hematoma. Correlate with intervention. Curvilinear density noted involving the left upper lung field. Correlate with prior exams if available to assess stability. Correlate with risk factors for lung carcinoma in determining further evaluation with PET CT exam. If no significant risk factors are present, interval follow-up chest CT in 3 months may be considered to assess stability. Objective Assessment ? LUE abscess based CT RENATA - previous h/o RENATA Leukocytosis - PCN allergy - Hives - believes has tolerated Cephalosporins per his H/o MRSA H/o Group B strep sepsis Erosive Gastritis s/p EGD 06/08 Urinary retention - woodson placed Plan Plan of Care D/w Dr. Omalley - he is unable to aspirate the shoulder today - d/w IR to aspirate and consult placed Dose Daptomycin and Meropenem 1 gm IV q 12 F/u labs and cults May need renal eval May need transfer to tertiary facility if shoulder is infected D/w D/w Dr. Hancock Thank you # [id number] RANDEE GARRETT MD Jun 13, 2019 10:52
[2019-06-13 11:16] VITALS: BP 80/45
--- NOTE | 2019-06-13 13:19 | PDOC ---
PULMONARY PROGRESS NOTES Subjective PT WITH ABD PAIN NO SOA NO INCREASE COUGH Vitals Vital Signs Date Time Temp Pulse Resp B/P (MAP) Pulse Ox O2 Delivery O2 Flow Rate FiO2 06/13/19 12:45 94 Room Air 2.0 06/13/19 11:16 97.5 72 20 80/45 (57) 97.5 ROS: No Chest Pain, No Increase Cough General: Alert Lungs: Crackles Cardiovascular: S1, S2 Abdomen: Other (TENDER) Neuro Exam: Alert Extremities: Other (EDEMA) Skin: Warm Labs Laboratory Tests Test 06/11/19 16:28 06/11/19 20:27 06/12/19 07:45 06/12/19 10:59 Glucose (Fingerstick) 132 mg/dL (70-99) 219 mg/dL (70-99) 166 mg/dL (70-99) 208 mg/dL (70-99) Test 06/12/19 17:01 06/12/19 21:18 06/13/19 02:35 06/13/19 07:40 Glucose (Fingerstick) 157 mg/dL (70-99) 124 mg/dL (70-99) 181 mg/dL (70-99) White Blood Count 20.8 x10^3/uL (4.0-11.0) Red Blood Count 3.67 x10^6/uL (4.30-5.70) Hemoglobin 11.5 g/dL (13.0-17.5) Hematocrit 34.7 % (39.0-53.0) Mean Corpuscular Volume 95 fL (79-100) Mean Corpuscular Hemoglobin 31 pg (25-35) Mean Corpuscular Hemoglobin Concent 33 g/dL (31-37) Red Cell Distribution Width 13.9 % (11.5-14.5) Platelet Count 385 x10^3/uL (140-400) Erythrocyte Sedimentation Rate 43 (0-15) Sodium Level 137 mmol/L (136-145) Potassium Level 4.4 mmol/L (3.5-5.1) Chloride Level 101 mmol/L (98-107) Carbon Dioxide Level 24 mmol/L (21-32) Anion Gap 12 (6-14) Blood Urea Nitrogen 58 mg/dL (8-26) Creatinine 2.3 mg/dL (0.7-1.3) Estimated GFR (Cockcroft-Gault) 27.7 BUN/Creatinine Ratio 25 (6-20) Glucose Level 142 mg/dL (70-99) Calcium Level 8.3 mg/dL (8.5-10.1) Total Bilirubin 0.8 mg/dL (0.2-1.0) Aspartate Amino Transf (AST/SGOT) 13 U/L (15-37) Alanine Aminotransferase (ALT/SGPT) 9 U/L (16-63) Alkaline Phosphatase 135 U/L (46-116) C-Reactive Protein, Quantitative 205.1 mg/L (0-3.3) Total Protein 5.5 g/dL (6.4-8.2) Albumin 1.4 g/dL (3.4-5.0) Albumin/Globulin Ratio 0.3 (1.0-1.7) Test 06/13/19 11:01 Glucose (Fingerstick) 181 mg/dL (70-99) Laboratory Tests Test 06/12/19 17:01 06/12/19 21:18 06/13/19 02:35 06/13/19 07:40 Glucose (Fingerstick) 157 mg/dL (70-99) 124 mg/dL (70-99) 181 mg/dL (70-99) White Blood Count 20.8 x10^3/uL (4.0-11.0) Red Blood Count 3.67 x10^6/uL (4.30-5.70) Hemoglobin 11.5 g/dL (13.0-17.5) Hematocrit 34.7 % (39.0-53.0) Mean Corpuscular Volume 95 fL (79-100) Mean Corpuscular Hemoglobin 31 pg (25-35) Mean Corpuscular Hemoglobin Concent 33 g/dL (31-37) Red Cell Distribution Width 13.9 % (11.5-14.5) Platelet Count 385 x10^3/uL (140-400) Erythrocyte Sedimentation Rate 43 (0-15) Sodium Level 137 mmol/L (136-145) Potassium Level 4.4 mmol/L (3.5-5.1) Chloride Level 101 mmol/L (98-107) Carbon Dioxide Level 24 mmol/L (21-32) Anion Gap 12 (6-14) Blood Urea Nitrogen 58 mg/dL (8-26) Creatinine 2.3 mg/dL (0.7-1.3) Estimated GFR (Cockcroft-Gault) 27.7 BUN/Creatinine Ratio 25 (6-20) Glucose Level 142 mg/dL (70-99) Calcium Level 8.3 mg/dL (8.5-10.1) Total Bilirubin 0.8 mg/dL (0.2-1.0) Aspartate Amino Transf (AST/SGOT) 13 U/L (15-37) Alanine Aminotransferase (ALT/SGPT) 9 U/L (16-63) Alkaline Phosphatase 135 U/L (46-116) C-Reactive Protein, Quantitative 205.1 mg/L (0-3.3) Total Protein 5.5 g/dL (6.4-8.2) Albumin 1.4 g/dL (3.4-5.0) Albumin/Globulin Ratio 0.3 (1.0-1.7) Test 06/13/19 11:01 Glucose (Fingerstick) 181 mg/dL (70-99) Medications Active Scripts Medications Dose Route/Sig Max Daily Dose Days Date Category Foltx Tablet (B12/Levomefolate Calcium/B-6) 1 Each Tablet 1 Each PO AFTRNOON 06/07/19 Reported Testosterone Cypionate 200 Mg/1 Ml Vial 1 Ml IM Q2WKS 06/07/19 Reported Novolog Mix 70-30 Flexpen Syrn (Insuln Asp Prt/Insulin Aspart) 100 Unit/1 Ml Insuln.pen 1 Unit SQ BIDACBL 06/07/19 Reported Lantus Solostar (Insulin Glargine,Hum.rec.anlog) 100 Unit/1 Ml Insuln.pen 30 Unit SQ QHS 06/07/19 Reported Nifedipine Er (Nifedipine) 60 Mg Tab.er.24 1 Tab PO DAILY 06/07/19 Reported Morphine Sulfate Er (Morphine Sulfate) 60 Mg Tablet.er 1 Tab PO BID 06/07/19 Reported Furosemide 40 Mg Tablet 40 Mg PO DAILY 06/07/19 Reported Finasteride 5 Mg Tablet 1 Tab PO DAILY 06/07/19 Reported Simvastatin 40 Mg Tablet 1 Tab PO QHS 06/07/19 Reported Metoprolol Succinate ( Xl ) (Metoprolol Succinate) 200 Mg Tab.er.24h 1 Tab PO DAILY 06/07/19 Reported Levothyroxine Sodium 175 Mcg Tablet 1 Tab PO DAILY 06/07/19 Reported Losartan-Hctz 100-12.5 Mg Tab (Losartan/Hydrochlorothiazide) 1 Each Tablet 1 Tab PO DAILY 06/07/19 Reported Impression . IMPRESSION: 1. Abnormal x-ray secondary to atelectasis. 2. Respiratory distress secondary to above. 3. Erosive gastritis. 4. Diarrhea. 5. Coronary artery disease, status post coronary artery bypass grafting. 6, COLONIC ILEUS Plan . FOLLOW GI INPUT D/W FAMILY INFORMED THEM THAT COLITIS IS AN ISSUE MEDICAL MANAGEMENT FOR NOW OFF 02 RESP STATUS IS COMPENSATED EDMAR GARG MD Jun 13, 2019 13:19
--- NOTE | 2019-06-13 13:29 | PDOC ---
Subjective: Subjective: Abd distention and pain since this morning. "Spit up" a little - "black stuff" (similar to what he vomited prior to transfer to [facility]). Stooled in diaper this morning. No gas since. Family wants to know about antibiotics. Objective: Vital Signs: Vital Signs Date Time Temp Pulse Resp B/P (MAP) Pulse Ox O2 Delivery O2 Flow Rate FiO2 06/13/19 12:45 94 Room Air 2.0 06/13/19 11:16 97.5 72 20 80/45 (57) 97.5 Labs: Laboratory Tests Test 06/12/19 17:01 06/12/19 21:18 06/13/19 02:35 06/13/19 07:40 Glucose (Fingerstick) 157 mg/dL 124 mg/dL 181 mg/dL White Blood Count 20.8 x10^3/uL Red Blood Count 3.67 x10^6/uL Hemoglobin 11.5 g/dL Hematocrit 34.7 % Mean Corpuscular Volume 95 fL Mean Corpuscular Hemoglobin 31 pg Mean Corpuscular Hemoglobin Concent 33 g/dL Red Cell Distribution Width 13.9 % Platelet Count 385 x10^3/uL Erythrocyte Sedimentation Rate 43 Sodium Level 137 mmol/L Potassium Level 4.4 mmol/L Chloride Level 101 mmol/L Carbon Dioxide Level 24 mmol/L Anion Gap 12 Blood Urea Nitrogen 58 mg/dL Creatinine 2.3 mg/dL Estimated GFR (Cockcroft-Gault) 27.7 BUN/Creatinine Ratio 25 Glucose Level 142 mg/dL Calcium Level 8.3 mg/dL Total Bilirubin 0.8 mg/dL Aspartate Amino Transf (AST/SGOT) 13 U/L Alanine Aminotransferase (ALT/SGPT) 9 U/L Alkaline Phosphatase 135 U/L C-Reactive Protein, Quantitative 205.1 mg/L Total Protein 5.5 g/dL Albumin 1.4 g/dL Albumin/Globulin Ratio 0.3 Test 06/13/19 11:01 Glucose (Fingerstick) 181 mg/dL Imaging: CT A/P 06/13 pending PE: GEN: uncomfortable LUNGS: NC HEART: RRR ABD: much different from yesterday - distended, somewhat firm, tender diffusely though worst in RLQ, few bowel sounds if any NEURO/PSYCH: A & O �3 A/P: Erosive esophagitis, non-erosive gastritis, cratered DU - path benign, on PPI ACD Leukocytosis, urinary retention, RENATA ?LUE abscess - ortho and ID following, IR asked to see Ventral abd hernia containing colon - noted on CT at [facility] -- Await CT results - would keep NPO until then and will change to IV PPI. Updated Dr. Oliveira who suggests surgical opinion. GERALD SMITH Jun 13, 2019 13:29
[2019-06-13] MEDS ORDERED: LIDOCAINE WITH 8.4% SOD BICARB 3 ML DISP.SYRIN. ONE (13:59)
[2019-06-13] MEDS ORDERED: DAPTOmycin (GENERIC) IVPB 560 MG in IV NORMAL SALINE 50ML 50 ML IV SCH (14:00)
[2019-06-13] MEDS: ONDANSETRON PF 4 MG/2 ML VIAL. IV PRN ×2 (14:18→22:15)
[2019-06-13] MEDS ORDERED: LIDOCAINE WITH 8.4% SOD BICARB 3 ML DISP.SYRIN. IJ ONE (14:30)
--- NOTE | 2019-06-13 14:45 | NUR ---
Received report from IR, aspirated 60ml of fluid from the shoulder mass, used local anesthesia.
[2019-06-13 15:00] VITALS: BP 89/49
[2019-06-13] MEDS: MEROPENEM 1 GM in IV NORMAL SALINE 100ML 100 ML IV SCH ×2 (15:00→22:14)
--- NOTE | 2019-06-13 15:01 | RAD ---
Examination: CT ABDOMEN PELVIS WO CONTRAST History: Right lower quadrant abdominal pain Comparison/Correlation: None Findings: Axial images of the abdomen and pelvis were obtained without contrast. Sagittal and coronal reformatted images were provided. Elevated serum creatinine at the time of exam was noted and IV contrast was not provided. Sternal wires are present. Minimal atelectasis at the right costophrenic sulcus noted. Linear atelectasis at the left lung base. Liver and spleen are unremarkable. Pancreas is unremarkable. Multiple renal cysts are present bilaterally. Fluid distends the stomach. Epigastric level abdominal wall hernia containing omental fat is present. Gaseous distention of the colon is notable. Stranding is noted about the rectum. Marked circumferential wall thickening of the distal rectum is noted. Minimal left pericolic gutter ascites is noted. Minimal right paracolic gutter ascites is smaller in quantity. Appendix is unremarkable. Fluid is present within mildly distended upper abdominal small bowel loops. Decompressed distal small bowel loops noted. Calcific involvement of the abdominal aorta is notable. The catheter is present within the urinary bladder. Mild prostatomegaly noted.. Bladder is mostly decompressed. Severe degenerative space narrowing from L3 to L5 noted. Deformity of the right iliac bone is evident. Correlate with previous trauma. Impression: Circumferential wall thickening of the distal ascending colon and rectum. Subtle surrounding stranding. Correlate for possibility of mild colitis. Minimal ascites. Distention of the colon and epigastric small bowel. Findings raise question of [place] syndrome. Colonic ileus alternatively is questioned. No definite transition point to suggest obstruction although marked circumferential wall thickening of the distal rectum with associated luminal narrowing is evident. Correlate for possible underlying mass. PQRS Compliance Statement: One or more of the following individualized dose reduction techniques were utilized for this examination: 1. Automated exposure control 2. Adjustment of the mA and/or kV according to patient size 3. Use of iterative reconstruction technique Electronically signed by: Saeid Donovan MD (06/13/2019 2:57 PM) [facility]
--- NOTE | 2019-06-13 17:04 | RAD ---
Procedure: Ultrasound-guided aspiration of the left shoulder Clinical Indication: 78-year-old with infected left shoulder prosthesis Sedation: Local anesthesia only Antibiotics: None Sterility: The procedure was performed in its entirety using appropriate elements of sterile technique. Consent: The procedure was explained in its entirety to the patient or the patients designated manufacturers service representative by a member of the treatment team, including a discussion of the risks, benefits and commonly accepted alternatives to the procedure, as well as the expected consequences of no therapy whatsoever. Discussion of the risks included, but was not limited to, those that are most frequent and those that are rare but possibly severe or life-threatening, as well as the possibility of unforeseen complications. Technique and Findings: Following informed consent, the patient was prepped and draped in usual sterile fashion. Ultrasound interrogation of the area of interest reveals a large multiloculated complex fluid collection in the soft tissues overlying and extending into the shoulder joint. 1% lidocaine was used to achieve local anesthesia. A small dermatotomy was made. Under ultrasound guidance, an 18-gauge Seldinger needle was advanced into the fluid collection. Aspiration was performed yielding 10 cc of thin pus. No additional material could be aspirated due to the viscosity of the remainder of the large fluid collection. The needle was repositioned into multiple regions within the fluid pocket, and in all instances failed to achieve any additional aspirate. The needle was then removed and hemostasis was achieved with manual compression. Complications: No immediate Impression: 1. Ultrasound-guided aspiration of a left shoulder fluid collection which extends into the joint space. This is a highly viscous multiloculated abscess which likely contains in excess of 300 cc of pus, and is not amenable to percutaneous drainage due to its viscosity intra-articular extension.
[2019-06-13 19:02] VITALS: BP 82/42
[2019-06-13] MEDS: SIMVASTATIN 40 MG TABLET. PO SCH (21:00)
[2019-06-13] MEDS: INSULIN GLARGINE SYRINGE. SQ SCH (21:00)
[2019-06-13] MEDS: TAMSULOSIN 0.4 MG CAP.ER.24H. PO SCH (21:00)
--- NOTE | 2019-06-13 22:13 | RAD ---
KUB INDICATION: NG placement. COMPARISON: CT 06/13/2019 TECHNIQUE: Upright view of the abdomen was obtained. FINDINGS: Enteric tube overlying the right lung base, likely within a right lower lobe bronchus. Abdomen: Nonobstructive bowel gas pattern. No free air on this limited supine image. Lower Chest: Limited view of the lower chest demonstrates no acute abnormality. IMPRESSION: Enteric tube overlying the right lung base, likely within a right lower lobe bronchus. Multiple distended loops of large and small bowel noted, best evaluated on same-day CT. No free air Findings were called to the ABRAHAM Zuleta, at 10:00 PM on 06/05/2019. FOR INTERNAL CODING PURPOSES RESULT CODE: (C) Electronically signed by: Ilya Valadez MD (06/13/2019 10:10 PM) [id number]
[2019-06-13 23:00] VITALS: BP 81/44
--- NOTE | 2019-06-13 23:13 | CONS ---
DATE OF CONSULTATION: 06/13/2019 PATIENT'S ROOM: 646. REQUESTING PHYSICIAN: Venkata Hancock M.D. REASON FOR CONSULTATION: Questionable infected shoulder. HISTORY OF PRESENT ILLNESS: The patient is a 78-year-old gentleman with a history of group B strep sepsis as well as MRSA, previously from a diabetic foot ulcer. He has a history of a left shoulder reverse arthroplasty done at in 2007. He has had multiple operations but has been having increasing pain in his shoulder since November when he was in the ambulance and was strapped down fairly tightly. He apparently followed up with Dr. Auguste a week or so ago, but did not recommend any treatment. Dr. Auguste is the orthopedist who did the initial surgery. He awakened several days ago, had black emesis. He presented to [facility] and was found to have a creatinine of 1.9. He had CT scan, showed hepatic steatosis, diffuse bladder wall thickening, large-volume colonic stool with possible impaction, stable renal lesions, markedly distended stomach and ventral abdominal hernia containing colon. 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 Because of his ongoing complaints of shoulder discomfort, on 06/11, he underwent an ultrasound, which showed no evidence of any thrombosis. He had a left large complex collection in the lateral soft tissues of the shoulder and upper arm. He then underwent a CT scan of his upper extremity on the left side on the . There was a large collection noted anterior to left humerus and about the left shoulder extending posteriorly into the lateral deltoid region. There was gas noted. Findings were concerned for an abscess or correlate with underlying hematoma. Dr. Omalley from Orthopedics was consulted. He saw the patient on the , recommended that he had a bedside aspiration; however, the patient refused any type of procedures and was requesting Dr. Auguste get involved in the case. Today, his white blood cell count increased to 20.8 and I was consulted. Currently, the patient is lying in bed, complaining mainly of left shoulder pain, feels a bit more comfortable since the Bledsoe is in place. He has no direct fevers, chills or sweats. No gross headaches. Has occasional cough. No sputum production. No nausea or vomiting. PAST MEDICAL HISTORY: Positive for type 2 diabetes. He has BPH, hypothyroidism, hypogonadism, neurofibromatosis, chronic fatigue, chronic neck pain, depression, chronic renal insufficiency, erectile dysfunction, history of lower extremity cellulitis with MRSA, history of group B strep sepsis, history of thoracic aneurysm and history of chronic kidney disease with acute kidney injury. PAST SURGICAL HISTORY: Positive for thoracic aneurysm repair, left shoulder replacement and right hand and wrist surgery. REVIEW OF SYSTEMS: Otherwise, negative. ALLERGIES: LISTED PENICILLIN, CAUSES HIVES. believes he has had cephalosporins. SOCIAL HISTORY: He is . No tobacco, alcohol or recreational drugs. CURRENT MEDICATIONS: Include normal saline, Proscar, Lasix, Dilaudid, insulin, levothyroxine, Cozaar, metoprolol, MS Contin, Procardia, Protonix, Zocor, Flomax and testosterone. PHYSICAL EXAMINATION: VITAL SIGNS: Afebrile, temperature 97.5, pulse 72, respirations 20, blood pressure 80/45 and satting 94% on room air. CONSTITUTIONAL: He is lying in bed. He is cooperative, in no acute distress. HEENT: Pupils are equal and reactive. Normal conjunctivae. Oral cavity, pharynx is clear. NECK: Supple, no JVD. LUNGS: Clear to auscultation. HEART: S1, S2. ABDOMEN: Obese, soft and nontender. EXTREMITIES: No clubbing or cyanosis with some trace lower extremity edema. He has a right hand deformity. His left shoulder is swollen. There is no gross erythema, but it is mildly tender to touch, and there is mild warmth associated with it and range of motion is painful. SKIN: Without signs of any generalized rash. NEUROLOGIC: He is nonfocal. PSYCHIATRIC: Affect is somewhat flat. LABORATORY VALUES: White count today 20.8, hemoglobin 11.5 and platelets of 385. Sed rate is 43. Creatinine is up to 2.3 today. Glucose of 142, AST 13 and ALT 9. IMAGING: CT of abdomen and pelvis pending. Other radiological images reviewed in history of present illness. Chest x-ray with some right base atelectasis. IMPRESSION: 1. Questionable left upper extremity abscess based on CT. 2. Acute kidney injury with a previous history of acute kidney injury. 3. Leukocytosis. 4. PENICILLIN allergy caused hives, believes has tolerated cephalosporins per . 5. History of methicillin-resistant Staphylococcus aureus. 6. History of group B strep sepsis. 7. Erosive gastritis status post EGD on the . 8. Urinary retention status post Bledsoe placement. RECOMMENDATIONS: Discussed with Dr. Omalley. He is unable to aspirate the shoulder today. We will discuss with Interventional Radiology and consult for IR to aspirate the shoulder. We will begin daptomycin given his renal failure and history of MRSA as well as meropenem 1 gram IV q. 12. Follow up on labs and cultures. May need transfer to tertiary facility if shoulder is infected. This was discussed with , discussed with Dr. Hancock. Thank you for allowing me to participate in the patient's care. If you have any questions, please do not hesitate to contact me. RANDEE GARRETT MD DR: LANDON/chastity JOB#: [id number] / [id number] [place]SE
--- NOTE | 2019-06-13 23:20 | RAD ---
Abdomen portable upright at 2233: Reason for examination: NG tube placement. Comparison is made to previous study dated 06/13/2019 at 2011. The NG tube tip appears to be coursing into the right lower lobe and the right lower lobe bronchus. There continues to be diffuse intestinal air which is unchanged. IMPRESSION: NG tube still appears to be in the right lower lobe and the right lower lobe bronchus. Diffuse intestinal air again evident. Electronically signed by: Vicenta Beck MD (06/13/2019 11:17 PM) [facility] [place]
[2019-06-14] VITALS (22 sets, daily range): BP systolic 64–130; BP diastolic 27–53
--- NOTE | 2019-06-14 01:18 | RAD ---
Abdomen portable at 12:02 AM: Reason for examination: NG tube placement. NG tube appears to be present with the tip and side port in the region of the stomach. There continues to be gaseous distention of the small and large intestine. IMPRESSION: NG tube tip and side port in the region of the stomach. Gaseous distention of the intestinal tract. Electronically signed by: Vicenta Beck MD (06/14/2019 1:16 AM) [facility]
[2019-06-14] MEDS: HYDROmorphone 2 MG/ML VIAL IV PRN ×3 (03:16→12:31)
[2019-06-14] MEDS: IV NORMAL SALINE 1000ML BAG 1,000 ML IV SCH ×2 (03:17→08:47)
[2019-06-14] MEDS: LEVOTHYROXINE 175 MCG TABLET PO SCH (04:32)
[2019-06-14 04:54] LABS: HEMATOCRIT 35.8 % (39.0-53.0); RED BLOOD COUNT 3.73 x10^6/uL (4.30-5.70); RED CELL DISTRIBUTION WIDTH 14.5 % (11.5-14.5); WHITE BLOOD COUNT 18.7 x10^3/uL (4.0-11.0)
[2019-06-14 05:25] LABS: ALBUMIN 1.2 g/dL (3.4-5.0); ALBUMIN/GLOBULIN RATIO 0.3 (1.0-1.7); CALCIUM 7.7 mg/dL (8.5-10.1); CREATININE 3.6 mg/dL (0.7-1.3); GFR 16.5; POTASSIUM 4.4 mmol/L (3.5-5.1); TOTAL BILIRUBIN 0.9 mg/dL (0.2-1.0); TOTAL PROTEIN 5.3 g/dL (6.4-8.2)
--- NOTE | 2019-06-14 07:55 | PDOC2 ---
LUIS CARLOS HAYWARD [employer] TECHNICIAN 06/14/19 0755: CONSULT Date of Consult Date of Consult DATE: 06/14/19 TIME: 07:53 Reason for Consult Reason for Consult: abdominal distention ventral hernia Referring Physician Referring Physician: Dr Oliveira Identification/Chief Complaint Chief Complaint abdominal pain Source Source: Chart review, Patient History of Present Illness Reason for Visit: Admitted from [facility] ER for black emesis, abdominal pain and distention. Has been occurring intermittently for a few months. Reports some loose stools at home. EGD with biopsies on [id number] and was found to have erosive gastritis, nonerosive gastritis and a crater ulcer bulb with clean base Then developed fluid collection left humerus BS control poor worsening distention and pain yesterday am--CT concerning for [place] syndrome or Colonic ileus CT findings of ventral hernia, containing omentum Past Medical History Cardiovascular: CAD, [place] CENTRAL NERVOUS SYSTEM: Other (neurofibromatosis) GI: Gastritis Musculoskeletal: Other (chronic fatigue) Renal/: Benign prostatic enlarg. (Takes BPH medications) Past Surgical History Past Surgical History: CABG, Other (left shoulder reverse arthroplasty, thoracic aneurysm repair) Family History Family History: Family History Unknown Social History <1 pack per day ALCOHOL: occassional Drugs: None Current Medications Current Medications Current Medications Pantoprazole Sodium (PROTONIX VIAL for IV PUSH) 40 mg BID IVP Last administered on 06/11/19at 09:22; Start 06/07/19 at 21:00; Stop 06/11/19 at 12:41; Status DC Sodium Chloride 1,000 ml @ 75 mls/hr [id number] IV Last administered on 06/09/19at 11:36; Start 06/07/19 at 16:30; Stop 06/09/19 at 12:08; Status DC Bisacodyl (Dulcolax Supp) 10 mg 1X ONCE NE Last administered on 06/07/19at 21: 40; Start 06/07/19 at 17:45; Stop 06/07/19 at 17:46; Status DC Hydromorphone HCl (Dilaudid) 1 mg PRN Q4HRS PRN IVP PAIN Last administered on 06/07/19at 18:04; Start 06/07/19 at 17:45; Stop 06/07/19 at 21:48; Status DC Lorazepam (Ativan) 0.5 mg PRN Q6HRS PRN PO ANXIETY / AGITATION; Start 06/07/19 at 18:00; Stop 06/07/19 at 18:14; Status DC Nicotine (Nicoderm Cq 21mg) 1 patch PRN DAILY PRN TD SMOKING CESSATION; Start 06/07/19 at 18:00; Stop 06/07/19 at 18:14; Status DC Hydromorphone HCl (Dilaudid) 2 mg PRN Q3HRS PRN IV PAIN Last administered on 06/14/19 03:16; Start 06/07/19 at 22:00 Ringer's Solution 1,000 ml @ 75 mls/hr [id number] IV Last administered on 06/08/19 14:01; Start 06/08/19 at 09:15; Stop 06/09/19 at 08:01; Status DC Propofol 20 ml @ As Directed STK-MED ONCE IV ; Start 06/08/19 at 10:20; Stop 06/08/19 at 10:20; Status DC Lidocaine HCl (Lidocaine Pf 2% Vial) 5 ml STK-MED ONCE .ROUTE ; Start 06/08/19 at 10:20; Stop 06/08/19 at 10:20; Status DC Finasteride (Proscar) 5 mg DAILY PO Last administered on 06/12/19 08:36; Start 06/08/19 at 12:00 Furosemide (Lasix) 40 mg DAILY PO Last administered on 06/12/19 08:36; Start 06/08/19 at 12:00 Levothyroxine Sodium (Synthroid) 175 mcg DAILY06 PO Last administered on 06/13/19 06:18; Start 06/08/19 at 12:00 Simvastatin (Zocor) 40 mg QHS PO Last administered on 06/12/19 21:26; Start 06/08/19 at 21:00 Testosterone Cypionate (Depo-Testosterone) 200 mg Q2WKS IM ; Start 06/22/19 at 09:00 Vitamin B Complex (Bud B) 1 tab DAILY PO Last administered on 06/12/19 08:36; Start 06/08/19 at 12:00 Insulin Glargine (Lantus Syringe) 30 unit QHS SQ Last administered on 06/13/19 22:26; Start 06/08/19 at 21:00 Non-Formulary Medication (Insuln Asp Prt/ Insulin Aspart (Novolog Mix 70-30 Flexpen Syrn)) 1 unit BIDACBL SQ ; Start 06/08/19 at 11:30; Stop 06/08/19 at 19:34; Status DC Losartan Potassium (Cozaar) 100 mg DAILY PO Last administered on 06/12/19 08:36; Start 06/08/19 at 12:00 Metoprolol Succinate (Toprol Xl) 200 mg DAILY PO Last administered on 06/12/19at 08:36; Start 06/08/19 at 12:00 Morphine Sulfate (Ms Contin) 60 mg BID PO Last administered on 06/12/19at 21:26; Start 06/08/19 at 12:00 Nifedipine (Procardia Xl) 60 mg DAILY PO Last administered on 06/12/19at 08:36; Start 06/08/19 at 12:00 Insulin Human Lispro (HumaLOG) 0-5 UNITS TIDWMEALS SQ Last administered on 06/09/19at 11:36; Start 06/08/19 at 17:00; Stop 06/09/19 at 11:38; Status DC Dextrose (Dextrose 50%-Water Syringe) 12.5 gm PRN Q15MIN PRN IV SEE COMMENTS; Start 06/08/19 at 15:30; Stop 06/09/19 at 15:19; Status DC Dextrose 250 ml PRN Q15MIN PRN IV SEE COMMENTS; Start 06/08/19 at 15:30; Stop 06/09/19 at 15:19; Status DC Insulin Human Lispro (HumaLOG) 0-9 UNITS TIDWMEALS SQ Last administered on 06/12/19at 17:19; Start 06/09/19 at 12:00 Dextrose (Dextrose 50%-Water Syringe) 12.5 gm PRN Q15MIN PRN IV SEE COMMENTS; Start 06/09/19 at 11:45 Dextrose 250 ml PRN Q15MIN PRN IV SEE COMMENTS; Start 06/09/19 at 11:45; Stop 06/09/19 at 15:19; Status DC Pantoprazole Sodium (Protonix) 40 mg DAILYAC PO Last administered on 06/12/19at 08:36; Start 06/12/19 at 07:30; Stop 06/13/19 at 13:27; Status DC Polyethylene Glycol (miraLAX PACKET) 17 gm DAILY PO ; Start 06/12/19 at 09:00; Stop 06/12/19 at 12:28; Status DC Polyethylene Glycol (miraLAX PACKET) 17 gm PRN DAILY PRN PO CONSTIPATION, 1ST CHOICE; Start 06/11/19 at 15:45 Bisacodyl (Dulcolax Tab) 5 mg PRN DAILY PRN PO CONSTIPATION, 2ND CHOICE; Start 06/11/19 at 15:45 Tamsulosin HCl (Flomax) 0.4 mg QHS PO Last administered on 06/12/19at 21:26; Start 06/12/19 at 21:00 Finasteride (Proscar) 5 mg DAILY PO ; Start 06/12/19 at 12:00; Stop 06/13/19 at 09:39; Status DC Sodium Chloride 500 ml @ 500 mls/hr 1X ONCE IV Last administered on 06/13/19at 12:45; Start 06/13/19 at 10:00; Stop 06/13/19 at 10:59; Status DC Ondansetron HCl (Zofran) 4 mg PRN Q6HRS PRN IV NAUSEA/VOMITING; Start 06/13/19 at 09:45; Status UNV Sodium Chloride 1,000 ml @ 125 mls/hr Q8H IV Last administered on 06/14/19at 03:17; Start 06/13/19 at 11:00 Ondansetron HCl (Zofran) 4 mg PRN Q4HRS PRN IV NAUSEA/VOMITING Last administered on 06/13/19at 22:15; Start 06/13/19 at 09:45 Ondansetron HCl (Zofran) 4 mg STK-MED ONCE .ROUTE ; Start 06/13/19 at 09:39; Stop 06/13/19 at 09:40; Status DC Daptomycin 560 mg/ Sodium Chloride 50 ml @ 100 mls/hr Q24H IV Last ad ministered on 06/13/19at 16:04; Start 06/13/19 at 14:00 Meropenem 1 gm/ Sodium Chloride 100 ml @ 200 mls/hr Q12HR IV Last administered on 06/13/19at 22:15; Start 06/13/19 at 15:00 Pantoprazole Sodium (PROTONIX VIAL for IV PUSH) 40 mg DAILYAC IVP ; Start at 07:30 Lidocaine/Sodium Bicarbonate (Buffered Lidocaine 1%) 3 ml STK-MED ONCE .ROUTE ; Start 06/13/19 at 13:59; Stop 06/13/19 at 14:00; Status DC Lidocaine/Sodium Bicarbonate (Buffered Lidocaine 1%) 3 ml 1X ONCE IJ Last administered on 06/13/19at 14:39; Start 06/13/19 at 14:30; Stop 06/13/19 at 14:32; Status DC Active Scripts Active Reported Foltx Tablet (B12/Levomefolate Calcium/B-6) 1 Each Tablet 1 Each PO AFTRNOON Testosterone Cypionate 200 Mg/1 Ml Vial 1 Ml IM Q2WKS Novolog Mix 70-30 Flexpen Syrn (Insuln Asp Prt/Insulin Aspart) 100 Unit/1 Ml Insuln.pen 1 Unit SQ BIDACBL Lantus Solostar (Insulin Glargine,Hum.rec.anlog) 100 Unit/1 Ml Insuln.pen 30 Unit SQ QHS Nifedipine Er (Nifedipine) 60 Mg Tab.er.24 1 Tab PO DAILY Morphine Sulfate Er (Morphine Sulfate) 60 Mg Tablet.er 1 Tab PO BID Furosemide 40 Mg Tablet 40 Mg PO DAILY Finasteride 5 Mg Tablet 1 Tab PO DAILY Simvastatin 40 Mg Tablet 1 Tab PO QHS Metoprolol Succinate ( Xl ) (Metoprolol Succinate) 200 Mg Tab.er.24h 1 Tab PO DAILY Levothyroxine Sodium 175 Mcg Tablet 1 Tab PO DAILY Losartan-Hctz 100-12.5 Mg Tab (Losartan/Hydrochlorothiazide) 1 Each Tablet 1 Tab PO DAILY Allergies Allergies: Coded Allergies: Penicillins (Verified Allergy, Intermediate, 06/08/19) tapentadol (Verified Allergy, Intermediate, 06/08/19) ROS General: YES: Fatigue; No: Chills PSYCHOLOGICAL ROS: No: Anxiety, Depression Eyes: No Blurry vision, No Double vision HEENT: No: Heacaches, Sore Throat Hematological and Lymphatic: YES: Bleeding Problems; No: Blood Clots Respiratory: No: Cough, Shortness of breath Cardiovascular: No Chest Pain, No Palpitations Gastrointestinal: Yes Other (see hpi) Genitourinary: No Dysuria, No Hematuria Musculoskeletal: Yes Muscle Pain, Yes Muscular Weakness Neurological: Yes Impaired Coord/balance; No Numbness/Tingling Skin: No Pruritus, No Rash Physical Exam General: Alert, Cooperative, No acute distress HEENT: Other (NG in place to LIS) Lungs: Clear to auscultation, Normal air movement Heart: Regular rate, Normal S1, Normal S2 Abdomen: Soft, Other (mildy distended, reducible VIH) Extremities: No clubbing, No cyanosis Skin: No rashes, No breakdown Neuro: Normal speech, Sensation intact Psych/Mental Status: Mental status NL, Mood NL MUSCULOSKELETAL: Other (Left shoulder pain) Vitals VITALS Vital Signs Date Time Temp Pulse Resp B/P (MAP) Pulse Ox O2 Delivery O2 Flow Rate FiO2 06/14/19 07:38 98.6 80 20 83/36 (52) 91 Room Air 98.6 06/14/19 04:32 2.0 Labs Labs Laboratory Tests Test 06/12/19 10:59 06/12/19 17:01 06/12/19 21:18 06/13/19 02:35 Glucose (Fingerstick) 208 mg/dL (70-99) 157 mg/dL (70-99) 124 mg/dL (70-99) White Blood Count 20.8 x10^3/uL (4.0-11.0) Red Blood Count 3.67 x10^6/uL (4.30-5.70) Hemoglobin 11.5 g/dL (13.0-17.5) Hematocrit 34.7 % (39.0-53.0) Mean Corpuscular Volume 95 fL (79-100) Mean Corpuscular Hemoglobin 31 pg (25-35) Mean Corpuscular Hemoglobin Concent 33 g/dL (31-37) Red Cell Distribution Width 13.9 % (11.5-14.5) Platelet Count 385 x10^3/uL (140-400) Erythrocyte Sedimentation Rate 43 (0-15) Sodium Level 137 mmol/L (136-145) Potassium Level 4.4 mmol/L (3.5-5.1) Chloride Level 101 mmol/L (98-107) Carbon Dioxide Level 24 mmol/L (21-32) Anion Gap 12 (6-14) Blood Urea Nitrogen 58 mg/dL (8-26) Creatinine 2.3 mg/dL (0.7-1.3) Estimated GFR (Cockcroft-Gault) 27.7 BUN/Creatinine Ratio 25 (6-20) Glucose Level 142 mg/dL (70-99) Calcium Level 8.3 mg/dL (8.5-10.1) Total Bilirubin 0.8 mg/dL (0.2-1.0) Aspartate Amino Transf (AST/SGOT) 13 U/L (15-37) Alanine Aminotransferase (ALT/SGPT) 9 U/L (16-63) Alkaline Phosphatase 135 U/L (46-116) C-Reactive Protein, Quantitative 205.1 mg/L (0-3.3) Total Protein 5.5 g/dL (6.4-8.2) Albumin 1.4 g/dL (3.4-5.0) Albumin/Globulin Ratio 0.3 (1.0-1.7) Test 06/13/19 07:40 06/13/19 11:01 06/13/19 16:59 06/13/19 21:12 Glucose (Fingerstick) 181 mg/dL (70-99) 181 mg/dL (70-99) 203 mg/dL (70-99) 246 mg/dL (70-99) Test 06/14/19 03:40 06/14/19 07:16 White Blood Count 18.7 x10^3/uL (4.0-11.0) Red Blood Count 3.73 x10^6/uL (4.30-5.70) Hemoglobin 12.0 g/dL (13.0-17.5) Hematocrit 35.8 % (39.0-53.0) Mean Corpuscular Volume 96 fL (79-100) Mean Corpuscular Hemoglobin 32 pg (25-35) Mean Corpuscular Hemoglobin Concent 33 g/dL (31-37) Red Cell Distribution Width 14.5 % (11.5-14.5) Platelet Count 446 x10^3/uL (140-400) Sodium Level 136 mmol/L (136-145) Potassium Level 4.4 mmol/L (3.5-5.1) Chloride Level 98 mmol/L (98-107) Carbon Dioxide Level 18 mmol/L (21-32) Anion Gap 20 (6-14) Blood Urea Nitrogen 86 mg/dL (8-26) Creatinine 3.6 mg/dL (0.7-1.3) Estimated GFR (Cockcroft-Gault) 16.5 BUN/Creatinine Ratio 24 (6-20) Glucose Level 243 mg/dL (70-99) Calcium Level 7.7 mg/dL (8.5-10.1) Total Bilirubin 0.9 mg/dL (0.2-1.0) Aspartate Amino Transf (AST/SGOT) 24 U/L (15-37) Alanine Aminotransferase (ALT/SGPT) 16 U/L (16-63) Alkaline Phosphatase 274 U/L (46-116) Total Protein 5.3 g/dL (6.4-8.2) Albumin 1.2 g/dL (3.4-5.0) Albumin/Globulin Ratio 0.3 (1.0-1.7) Glucose (Fingerstick) 249 mg/dL (70-99) Laboratory Tests Test 06/13/19 11:01 06/13/19 16:59 06/13/19 21:12 06/14/19 03:40 Glucose (Fingerstick) 181 mg/dL (70-99) 203 mg/dL (70-99) 246 mg/dL (70-99) White Blood Count 18.7 x10^3/uL (4.0-11.0) Red Blood Count 3.73 x10^6/uL (4.30-5.70) Hemoglobin 12.0 g/dL (13.0-17.5) Hematocrit 35.8 % (39.0-53.0) Mean Corpuscular Volume 96 fL (79-100) Mean Corpuscular Hemoglobin 32 pg (25-35) Mean Corpuscular Hemoglobin Concent 33 g/dL (31-37) Red Cell Distribution Width 14.5 % (11.5-14.5) Platelet Count 446 x10^3/uL (140-400) Sodium Level 136 mmol/L (136-145) Potassium Level 4.4 mmol/L (3.5-5.1) Chloride Level 98 mmol/L (98-107) Carbon Dioxide Level 18 mmol/L (21-32) Anion Gap 20 (6-14) Blood Urea Nitrogen 86 mg/dL (8-26) Creatinine 3.6 mg/dL (0.7-1.3) Estimated GFR (Cockcroft-Gault) 16.5 BUN/Creatinine Ratio 24 (6-20) Glucose Level 243 mg/dL (70-99) Calcium Level 7.7 mg/dL (8.5-10.1) Total Bilirubin 0.9 mg/dL (0.2-1.0) Aspartate Amino Transf (AST/SGOT) 24 U/L (15-37) Alanine Aminotransferase (ALT/SGPT) 16 U/L (16-63) Alkaline Phosphatase 274 U/L (46-116) Total Protein 5.3 g/dL (6.4-8.2) Albumin 1.2 g/dL (3.4-5.0) Albumin/Globulin Ratio 0.3 (1.0-1.7) Test 06/14/19 07:16 Glucose (Fingerstick) 249 mg/dL (70-99) Assessment/Plan Assessment/Plan shoulder/joint, left infection/fluid collection CT findings of colonic ileus--hernia containing omentum on CT--hernia is easily reducible will review with Dr Xiong, no current surgical plans AMINA XIONG MD 06/14/19 1616: CONSULT Assessment/Plan Assessment/Plan pt seen earlier today up on the floor, just prior to transfer to the ICU spoke with two of his family members at the bedside agree with Ms Hayward's assessment and no acute surgical indication present need to do a rectal exam if not already done appears he is headed to the OR for drainage of his shoulder will follow with you Thanks for consult LUIS CARLOS HAYWARD APRN Jun 14, 2019 07:55 AMINA XIONG MD Jun 14, 2019 16:16
[2019-06-14] MEDS: INSULIN LISPRO 300 UNITS/3 ML VIAL. SQ SCH ×2 (08:00→12:39)
[2019-06-14] MEDS: PANTOPRAZOLE IV PUSH 40 MG VIAL. IVP SCH (08:47)
[2019-06-14] MEDS: MEROPENEM 1 GM in IV NORMAL SALINE 100ML 100 ML IV SCH ×2 (08:48→21:45)
[2019-06-14] MEDS: LOSARTAN POTASSIUM 50 MG TABLET. PO SCH (09:00)
[2019-06-14] MEDS: METOPROLOL SUCC 24HR ER 100 MG TAB.ER.24H. PO SCH (09:00)
[2019-06-14] MEDS: MORPHINE ER 30 MG TABLET.ER PO SCH ×2 (09:00→21:00)
[2019-06-14] MEDS: FINASTERIDE 5 MG TABLET. PO SCH (09:00)
[2019-06-14] MEDS: FUROSEMIDE 40 MG TABLET. PO SCH (09:00)
[2019-06-14] MEDS: VITAMIN B COMPLEX TABLET. PO SCH (09:00)
--- NOTE | 2019-06-14 09:44 | PDOC ---
Subjective: Subjective: Mouth is really dry. Feels terrible. Said they started to give an enema but he thinks he stooled. Says he's been having a few ice chips but doesn't want mouth swabs because they're terrible. Objective: Objective: Talked to nurse - magazine feeder told her about a stool though detail unclear. Vital Signs: Vital Signs Date Time Temp Pulse Resp B/P (MAP) Pulse Ox O2 Delivery O2 Flow Rate FiO2 06/14/19 09:19 18 91 Room Air 06/14/19 07:38 98.6 80 83/36 (52) 98.6 06/14/19 04:32 2.0 Labs: Laboratory Tests Test 06/13/19 11:01 06/13/19 16:59 06/13/19 21:12 06/14/19 03:40 Glucose (Fingerstick) 181 mg/dL 203 mg/dL 246 mg/dL White Blood Count 18.7 x10^3/uL Red Blood Count 3.73 x10^6/uL Hemoglobin 12.0 g/dL Hematocrit 35.8 % Mean Corpuscular Volume 96 fL Mean Corpuscular Hemoglobin 32 pg Mean Corpuscular Hemoglobin Concent 33 g/dL Red Cell Distribution Width 14.5 % Platelet Count 446 x10^3/uL Sodium Level 136 mmol/L Potassium Level 4.4 mmol/L Chloride Level 98 mmol/L Carbon Dioxide Level 18 mmol/L Anion Gap 20 Blood Urea Nitrogen 86 mg/dL Creatinine 3.6 mg/dL Estimated GFR (Cockcroft-Gault) 16.5 BUN/Creatinine Ratio 24 Glucose Level 243 mg/dL Calcium Level 7.7 mg/dL Total Bilirubin 0.9 mg/dL Aspartate Amino Transf (AST/SGOT) 24 U/L Alanine Aminotransferase (ALT/SGPT) 16 U/L Alkaline Phosphatase 274 U/L Total Protein 5.3 g/dL Albumin 1.2 g/dL Albumin/Globulin Ratio 0.3 Test 06/14/19 07:16 Glucose (Fingerstick) 249 mg/dL Imaging: KUB IMPRESSION: NG tube tip and side port in the region of the stomach. Gaseous distention of the intestinal tract. Left Shoulder Aspiration Impression: 1. Ultrasound-guided aspiration of a left shoulder fluid collection which extends into the joint space. This is a highly viscous multiloculated abscess which likely contains in excess of 300 cc of pus, and is not amenable to percutaneous drainage due to its viscosity intra-articular extension. PE: GEN: ill - NG canister w/ ~300cc dark bilious material LUNGS: room air HEART: RRR ABD: distended, +hernia (reducible), tender throughout - worst RLQ, quiet NEURO/PSYCH: A & O �3 A/P: Abnormal CT - distention of colon and small bowel (Malik's/colonic ileus), thickening of rectum w/ narrowing, gastric distention, abd wall hernia Leukocytosis (better), ACD, RENATA (worse) Left shoulder abscess Erosive esophagitis, duodenal ulcer -- Continue NGT and IV PPI for now. ?stooling - will review w/ Dr. Oliveira - Relistor? GERALD SMITH Jun 14, 2019 09:44
--- NOTE | 2019-06-14 09:52 | PDOC ---
PULMONARY PROGRESS NOTES Subjective TRANSFERRED TO ICU FOR HYPOTENSION AND ENCE Vitals Vital Signs Date Time Temp Pulse Resp B/P (MAP) Pulse Ox O2 Delivery O2 Flow Rate FiO2 06/14/19 09:19 18 91 Room Air 06/14/19 07:38 98.6 80 83/36 (52) 98.6 06/14/19 04:32 2.0 General: Confused Lungs: Crackles Cardiovascular: S1, S2 Abdomen: Other (TENDER) Neuro Exam: Alert, No Focal Findings Extremities: Other (EDEMA) Skin: Warm Labs Laboratory Tests Test 06/12/19 10:59 06/12/19 17:01 06/12/19 21:18 06/13/19 02:35 Glucose (Fingerstick) 208 mg/dL (70-99) 157 mg/dL (70-99) 124 mg/dL (70-99) White Blood Count 20.8 x10^3/uL (4.0-11.0) Red Blood Count 3.67 x10^6/uL (4.30-5.70) Hemoglobin 11.5 g/dL (13.0-17.5) Hematocrit 34.7 % (39.0-53.0) Mean Corpuscular Volume 95 fL (79-100) Mean Corpuscular Hemoglobin 31 pg (25-35) Mean Corpuscular Hemoglobin Concent 33 g/dL (31-37) Red Cell Distribution Width 13.9 % (11.5-14.5) Platelet Count 385 x10^3/uL (140-400) Erythrocyte Sedimentation Rate 43 (0-15) Sodium Level 137 mmol/L (136-145) Potassium Level 4.4 mmol/L (3.5-5.1) Chloride Level 101 mmol/L (98-107) Carbon Dioxide Level 24 mmol/L (21-32) Anion Gap 12 (6-14) Blood Urea Nitrogen 58 mg/dL (8-26) Creatinine 2.3 mg/dL (0.7-1.3) Estimated GFR (Cockcroft-Gault) 27.7 BUN/Creatinine Ratio 25 (6-20) Glucose Level 142 mg/dL (70-99) Calcium Level 8.3 mg/dL (8.5-10.1) Total Bilirubin 0.8 mg/dL (0.2-1.0) Aspartate Amino Transf (AST/SGOT) 13 U/L (15-37) Alanine Aminotransferase (ALT/SGPT) 9 U/L (16-63) Alkaline Phosphatase 135 U/L (46-116) C-Reactive Protein, Quantitative 205.1 mg/L (0-3.3) Total Protein 5.5 g/dL (6.4-8.2) Albumin 1.4 g/dL (3.4-5.0) Albumin/Globulin Ratio 0.3 (1.0-1.7) Test 06/13/19 07:40 06/13/19 11:01 06/13/19 16:59 06/13/19 21:12 Glucose (Fingerstick) 181 mg/dL (70-99) 181 mg/dL (70-99) 203 mg/dL (70-99) 246 mg/dL (70-99) Test 06/14/19 03:40 06/14/19 07:16 White Blood Count 18.7 x10^3/uL (4.0-11.0) Red Blood Count 3.73 x10^6/uL (4.30-5.70) Hemoglobin 12.0 g/dL (13.0-17.5) Hematocrit 35.8 % (39.0-53.0) Mean Corpuscular Volume 96 fL (79-100) Mean Corpuscular Hemoglobin 32 pg (25-35) Mean Corpuscular Hemoglobin Concent 33 g/dL (31-37) Red Cell Distribution Width 14.5 % (11.5-14.5) Platelet Count 446 x10^3/uL (140-400) Sodium Level 136 mmol/L (136-145) Potassium Level 4.4 mmol/L (3.5-5.1) Chloride Level 98 mmol/L (98-107) Carbon Dioxide Level 18 mmol/L (21-32) Anion Gap 20 (6-14) Blood Urea Nitrogen 86 mg/dL (8-26) Creatinine 3.6 mg/dL (0.7-1.3) Estimated GFR (Cockcroft-Gault) 16.5 BUN/Creatinine Ratio 24 (6-20) Glucose Level 243 mg/dL (70-99) Calcium Level 7.7 mg/dL (8.5-10.1) Total Bilirubin 0.9 mg/dL (0.2-1.0) Aspartate Amino Transf (AST/SGOT) 24 U/L (15-37) Alanine Aminotransferase (ALT/SGPT) 16 U/L (16-63) Alkaline Phosphatase 274 U/L (46-116) Total Protein 5.3 g/dL (6.4-8.2) Albumin 1.2 g/dL (3.4-5.0) Albumin/Globulin Ratio 0.3 (1.0-1.7) Glucose (Fingerstick) 249 mg/dL (70-99) Laboratory Tests Test 06/13/19 11:01 06/13/19 16:59 06/13/19 21:12 06/14/19 03:40 Glucose (Fingerstick) 181 mg/dL (70-99) 203 mg/dL (70-99) 246 mg/dL (70-99) White Blood Count 18.7 x10^3/uL (4.0-11.0) Red Blood Count 3.73 x10^6/uL (4.30-5.70) Hemoglobin 12.0 g/dL (13.0-17.5) Hematocrit 35.8 % (39.0-53.0) Mean Corpuscular Volume 96 fL (79-100) Mean Corpuscular Hemoglobin 32 pg (25-35) Mean Corpuscular Hemoglobin Concent 33 g/dL (31-37) Red Cell Distribution Width 14.5 % (11.5-14.5) Platelet Count 446 x10^3/uL (140-400) Sodium Level 136 mmol/L (136-145) Potassium Level 4.4 mmol/L (3.5-5.1) Chloride Level 98 mmol/L (98-107) Carbon Dioxide Level 18 mmol/L (21-32) Anion Gap 20 (6-14) Blood Urea Nitrogen 86 mg/dL (8-26) Creatinine 3.6 mg/dL (0.7-1.3) Estimated GFR (Cockcroft-Gault) 16.5 BUN/Creatinine Ratio 24 (6-20) Glucose Level 243 mg/dL (70-99) Calcium Level 7.7 mg/dL (8.5-10.1) Total Bilirubin 0.9 mg/dL (0.2-1.0) Aspartate Amino Transf (AST/SGOT) 24 U/L (15-37) Alanine Aminotransferase (ALT/SGPT) 16 U/L (16-63) Alkaline Phosphatase 274 U/L (46-116) Total Protein 5.3 g/dL (6.4-8.2) Albumin 1.2 g/dL (3.4-5.0) Albumin/Globulin Ratio 0.3 (1.0-1.7) Test 06/14/19 07:16 Glucose (Fingerstick) 249 mg/dL (70-99) Medications Active Scripts Medications Dose Route/Sig Max Daily Dose Days Date Category Foltx Tablet (B12/Levomefolate Calcium/B-6) 1 Each Tablet 1 Each PO AFTRNOON 06/07/19 Reported Testosterone Cypionate 200 Mg/1 Ml Vial 1 Ml IM Q2WKS 06/07/19 Reported Novolog Mix 70-30 Flexpen Syrn (Insuln Asp Prt/Insulin Aspart) 100 Unit/1 Ml Insuln.pen 1 Unit SQ BIDACBL 06/07/19 Reported Lantus Solostar (Insulin Glargine,Hum.rec.anlog) 100 Unit/1 Ml Insuln.pen 30 Unit SQ QHS 06/07/19 Reported Nifedipine Er (Nifedipine) 60 Mg Tab.er.24 1 Tab PO DAILY 06/07/19 Reported Morphine Sulfate Er (Morphine Sulfate) 60 Mg Tablet.er 1 Tab PO BID 06/07/19 Reported Furosemide 40 Mg Tablet 40 Mg PO DAILY 06/07/19 Reported Finasteride 5 Mg Tablet 1 Tab PO DAILY 06/07/19 Reported Simvastatin 40 Mg Tablet 1 Tab PO QHS 06/07/19 Reported Metoprolol Succinate ( Xl ) (Metoprolol Succinate) 200 Mg Tab.er.24h 1 Tab PO DAILY 06/07/19 Reported Levothyroxine Sodium 175 Mcg Tablet 1 Tab PO DAILY 06/07/19 Reported Losartan-Hctz 100-12.5 Mg Tab (Losartan/Hydrochlorothiazide) 1 Each Tablet 1 Tab PO DAILY 06/07/19 Reported Impression . IMPRESSION: 1. Abnormal x-ray secondary to atelectasis. 2. Respiratory distress secondary to above. 3. Erosive gastritis. 4. Diarrhea. 5. Coronary artery disease, status post coronary artery bypass grafting. 6, COLONIC ILEUS 7. SEPSIS WITH HYPOTENSION 8. SHOULDER ABSCESS Plan . D/W GI AND DR GARRETT OK TO UNDERGO SURGERY IF NEEDED OK TO KEEP ON VENT OVERNIGHT STARTED LEVOPHED IV FLUIDS ANTI BX D/W FAMILY INFORMED THEM THAT COLITIS IS AN ISSUE MEDICAL MANAGEMENT FOR NOW, SEPSIS IS COMPLICATING MATTERS CCT 30 MIN EDMAR GARG MD Jun 14, 2019 09:52
--- NOTE | 2019-06-14 10:14 | PDOC ---
PROGRESS NOTES Subjective Subjective pt looks ill Objective Objective Vital Signs Date Time Temp Pulse Resp B/P (MAP) Pulse Ox O2 Delivery O2 Flow Rate FiO2 06/14/19 09:19 18 91 Room Air 06/14/19 07:38 98.6 80 83/36 (52) 98.6 06/14/19 04:32 2.0 Intake and Output 06/14/19 07:00 Intake Total 560 ml Output Total 900 ml Balance -340 ml Intake Oral 560 ml Output Urine Total 500 ml Gastric Drainage Total 200 ml Emesis 200 ml # Bowel Movements 5 Physical Exam Physical Exam NGT to suction Abdomen: Soft, Other (mildy distended, reducible VIH) Heart: Regular rate, Normal S1, Normal S2 Extremities: No clubbing, No cyanosis General: Alert, Cooperative, No acute distress HEENT: Other (NG in place to LIS) Lungs: Clear to auscultation, Normal air movement MUSCULOSKELETAL: Other (Left shoulder pain) Neuro: Normal speech, Sensation intact Psych/Mental Status: Mood NL Skin: No rashes, No breakdown COMMENT woodson Assessment Assessment ASSESSMENT: 1. The patient was admitted with hematemesis with findings erosive esophagitis, erosive gastritis and cratered ulcer bulb with clean base, status post biopsy. The biopsy was negative for malignancy and Helicobacter organisms. 2. The patient developed urinary retention for which he had an indwelling Woodson catheter. We will start him on Flomax and finasteride. 3. Acute on chronic kidney injury. Creatinine has risen from 1.5 to 2.4 for which we started him on IV fluid, given a bolus of 500 mL continuous at 125 mL per hour. 4. Abscess or hematoma around the left shoulder with marked leukocytosis as well as elevated sed rate and C-reactive protein. There was gas also in the fluid collection, raising possibility of an abscess. PLAN: wbc 18, cr 3.2 inc iv antibiotics ngt and iv fluids. renal consult. ?[facility] transfer . Gi and surgry on case. My plan is to consult the interventional radiologist and Infectious Disease specialist to start perhaps the antibiotic treatment after appropriate biopsies for fluid, sent for culture and sensitivity. I explained all these things to his and apparently Dr. Omalley saw the patient and he is communicating with the orthopedic surgeon at [facility]. Comment Review of Relevant I have reviewed the following items john (where applicable) has been applied. Labs Laboratory Tests Test 06/13/19 11:01 06/13/19 16:59 06/13/19 21:12 06/14/19 03:40 Glucose (Fingerstick) 181 mg/dL (70-99) 203 mg/dL (70-99) 246 mg/dL (70-99) White Blood Count 18.7 x10^3/uL (4.0-11.0) Red Blood Count 3.73 x10^6/uL (4.30-5.70) Hemoglobin 12.0 g/dL (13.0-17.5) Hematocrit 35.8 % (39.0-53.0) Mean Corpuscular Volume 96 fL (79-100) Mean Corpuscular Hemoglobin 32 pg (25-35) Mean Corpuscular Hemoglobin Concent 33 g/dL (31-37) Red Cell Distribution Width 14.5 % (11.5-14.5) Platelet Count 446 x10^3/uL (140-400) Sodium Level 136 mmol/L (136-145) Potassium Level 4.4 mmol/L (3.5-5.1) Chloride Level 98 mmol/L (98-107) Carbon Dioxide Level 18 mmol/L (21-32) Anion Gap 20 (6-14) Blood Urea Nitrogen 86 mg/dL (8-26) Creatinine 3.6 mg/dL (0.7-1.3) Estimated GFR (Cockcroft-Gault) 16.5 BUN/Creatinine Ratio 24 (6-20) Glucose Level 243 mg/dL (70-99) Calcium Level 7.7 mg/dL (8.5-10.1) Total Bilirubin 0.9 mg/dL (0.2-1.0) Aspartate Amino Transf (AST/SGOT) 24 U/L (15-37) Alanine Aminotransferase (ALT/SGPT) 16 U/L (16-63) Alkaline Phosphatase 274 U/L (46-116) Total Protein 5.3 g/dL (6.4-8.2) Albumin 1.2 g/dL (3.4-5.0) Albumin/Globulin Ratio 0.3 (1.0-1.7) Test 06/14/19 07:16 Glucose (Fingerstick) 249 mg/dL (70-99) Medications Current Medications Daptomycin 560 mg/ Sodium Chloride 50 ml @ 100 mls/hr Q24H IV Last administered on 06/13/19at 16:04; Start 06/13/19 at 14:00 Lidocaine/Sodium Bicarbonate (Buffered Lidocaine 1%) 3 ml 1X ONCE IJ Last administered on 06/13/19at 14:39; Start 06/13/19 at 14:30; Stop 06/13/19 at 14:32; Status DC Lidocaine/Sodium Bicarbonate (Buffered Lidocaine 1%) 3 ml STK-MED ONCE .ROUTE ; Start 06/13/19 at 13:59; Stop 06/13/19 at 14:00; Status DC Meropenem 1 gm/ Sodium Chloride 100 ml @ 200 mls/hr Q12HR IV Last administered on 06/14/19 08:48; Start 06/13/19 at 15:00 Pantoprazole Sodium (PROTONIX VIAL for IV PUSH) 40 mg DAILYAC IVP Last administered on 06/14/19 08:48; Start 06/14/19 at 07:30 Sodium Chloride 1,000 ml @ 125 mls/hr Q8H IV Last administered on 06/14/19 08:48; Start 06/13/19 at 11:00 Testosterone Cypionate (Depo-Testosterone) 200 mg Q2WKS IM ; Start 06/22/19 at 09:00 Vitals/I & O Vital Sign - Last 24 Hours 06/13/19 06/13/19 06/13/19 06/13/19 11:05 11:16 12:45 14:55 Temp 97.5 97.5 Pulse 72 72 Resp 20 B/P (MAP) 80/45 (57) 80/45 Pulse Ox 96 94 94 O2 Delivery Room Air Room Air Room Air O2 Flow Rate 2.0 06/13/19 06/13/19 06/13/19 06/13/19 14:55 15:00 16:15 18:13 Temp 98.9 98.9 Pulse 72 86 Resp 20 B/P (MAP) 80/45 89/49 (62) Pulse Ox 90 90 90 O2 Delivery Room Air Room Air Room Air O2 Flow Rate 2.0 2.0 06/13/19 06/13/19 06/13/19 06/13/19 19:02 20:00 22:15 23:00 Temp 98.2 97.6 98.2 97.6 Pulse 75 85 Resp 20 20 B/P (MAP) 82/42 (55) 81/44 (56) Pulse Ox 97 97 91 O2 Delivery Room Air Room Air Room Air Room Air 06/13/19 06/14/19 06/14/19 06/14/19 23:46 03:02 03:16 04:32 Temp 98.7 98.7 Pulse 83 Resp 20 17 B/P (MAP) 86/53 (64) Pulse Ox 97 95 95 95 O2 Delivery Room Air Room Air Room Air Room Air O2 Flow Rate 2.0 2.0 06/14/19 06/14/19 07:38 09:19 Temp 98.6 98.6 Pulse 80 Resp 20 18 B/P (MAP) 83/36 (52) Pulse Ox 91 91 O2 Delivery Room Air Room Air Intake and Output 06/13/19 06/13/19 06/14/19 15:00 23:00 07:00 Intake Total 560 ml 0 ml 0 ml Output Total 400 ml 200 ml 300 ml Balance 160 ml -200 ml -300 ml DESIREE BAY MD Jun 14, 2019 10:14
--- NOTE | 2019-06-14 10:38 | NUR ---
SW following pt. [facility] transfer request was initiated late yesterday by Physician. Spoke with Steffi offset press operator helper at and faxed updated clinicals, Labs to . Pt acceptance and admission pending.
--- NOTE | 2019-06-14 11:14 | PDOC ---
Infectious Disease Note Subjective Subjective Doing ok shoulder with less pain. Stomach ok No F/C/S/SOA/N/Rash ROS ROS o/w neg Vital Sign Vital Signs Vital Signs Date Time Temp Pulse Resp B/P (MAP) Pulse Ox O2 Delivery O2 Flow Rate FiO2 06/14/19 09:19 18 91 Room Air 06/14/19 07:38 98.6 80 83/36 (52) 98.6 06/14/19 04:32 2.0 Physical Exam PHYSICAL EXAM CONSTITUTIONAL: He is lying in bed. He is cooperative, in no acute distress. HEENT: Pupils are equal and reactive. Normal conjunctivae. Oral cavity, pharynx is clear. NECK: Supple, no JVD. LUNGS: Clear to auscultation. HEART: S1, S2. ABDOMEN: Obese, soft and nontender.NGT. mild distension EXTREMITIES: No clubbing or cyanosis with some trace lower extremity edema. He has a right hand deformity. His left shoulder is swollen. There is no gross erythema, but it is mildly tender to touch, and there is mild warmth associated with it and range of motion is painful. SKIN: Without signs of any generalized rash. NEUROLOGIC: He is nonfocal. PSYCHIATRIC: Affect is somewhat flat. Labs Lab Laboratory Tests Test 06/13/19 11:01 06/13/19 16:59 06/13/19 21:12 06/14/19 03:40 Glucose (Fingerstick) 181 mg/dL (70-99) 203 mg/dL (70-99) 246 mg/dL (70-99) White Blood Count 18.7 x10^3/uL (4.0-11.0) Red Blood Count 3.73 x10^6/uL (4.30-5.70) Hemoglobin 12.0 g/dL (13.0-17.5) Hematocrit 35.8 % (39.0-53.0) Mean Corpuscular Volume 96 fL (79-100) Mean Corpuscular Hemoglobin 32 pg (25-35) Mean Corpuscular Hemoglobin Concent 33 g/dL (31-37) Red Cell Distribution Width 14.5 % (11.5-14.5) Platelet Count 446 x10^3/uL (140-400) Sodium Level 136 mmol/L (136-145) Potassium Level 4.4 mmol/L (3.5-5.1) Chloride Level 98 mmol/L (98-107) Carbon Dioxide Level 18 mmol/L (21-32) Anion Gap 20 (6-14) Blood Urea Nitrogen 86 mg/dL (8-26) Creatinine 3.6 mg/dL (0.7-1.3) Estimated GFR (Cockcroft-Gault) 16.5 BUN/Creatinine Ratio 24 (6-20) Glucose Level 243 mg/dL (70-99) Calcium Level 7.7 mg/dL (8.5-10.1) Total Bilirubin 0.9 mg/dL (0.2-1.0) Aspartate Amino Transf (AST/SGOT) 24 U/L (15-37) Alanine Aminotransferase (ALT/SGPT) 16 U/L (16-63) Alkaline Phosphatase 274 U/L (46-116) Total Protein 5.3 g/dL (6.4-8.2) Albumin 1.2 g/dL (3.4-5.0) Albumin/Globulin Ratio 0.3 (1.0-1.7) Test 06/14/19 07:16 Glucose (Fingerstick) 249 mg/dL (70-99) Micro CT Left UE 06/12 Impression: Large collection is noted anterior to the left humerus and about the left shoulder extending posteriorly and into the lateral deltoid region. Gas noted within. Findings of concern for abscess. Correlate for underlying hematoma. Correlate with intervention. Curvilinear density noted involving the left upper lung field. Correlate with prior exams if available to assess stability. Correlate with risk factors for lung carcinoma in determining further evaluation with PET CT exam. If no significant risk factors are present, interval follow-up chest CT in 3 months may be considered to assess stability. CT abd/pel 06/13 Impression: Circumferential wall thickening of the distal ascending colon and rectum. Subtle surrounding stranding. Correlate for possibility of mild colitis. Minimal ascites. Distention of the colon and epigastric small bowel. Findings raise question of Hennepin syndrome. Colonic ileus alternatively is questioned. No definite transition point to suggest obstruction although marked circumferential wall thickening of the distal rectum with associated luminal narrowing is evident. Correlate for possible underlying mass. Objective Assessment ? LUE abscess s/p 10 ml removal RENATA - previous h/o RENATA - worse Hypotension Leukocytosis - better PCN allergy - Hives - believes has tolerated Cephalosporins per his ? Hennepin syndrome H/o MRSA H/o Group B strep sepsis Erosive Gastritis s/p EGD 06/08 Urinary retention - woodson placed Plan Plan of Care D/w Dr. Oconnor yesterday evening - 10 ml only removed sec to loculations but he suspects close to 300 mgl. D/w Dr. Omalley who stated Mr. Tobar needed to be transferred to a tertiary facility. I contacted Dr. Hancock last evening who stated he would work on transfer last pm Renal consulted Cardiology eval D/w Dr. Omalley - will schedule for 5 pm I and D if possible Dose Daptomycin adjust dose and cont Meropenem 1 gm IV q 12 F/u labs and cults Transfer to ICU D/w Dr. Arambula/Dr. Dooley and Crow Germain D/w nursing D/w /son re: severely ill RANDEE GARRETT MD Jun 14, 2019 11:14
[2019-06-14] MEDS ORDERED: IV NORMAL SALINE 500ML BAG 500 ML IV ONE ×2 (11:45)
--- NOTE | 2019-06-14 11:55 | NUR ---
Wound care: Patient seen per wound care follow for left lateral heel pressure ulcer. See wound assessment. Patient is well known to us in the wound clinic for his left lateral heel pressure ulcer. Patient had large loose stool, all linens changed and patient cleansed. Dressing removed and wound cleansed and assessed. Recommendations for Hydrofera Blue (moistened) cover with Xeroform gauze and cover with Aquacel foam dressing. Dressing applied. Patient also has DTI to left lateral lower leg/foot. Wound is cleansed, assessed, measured, and pictured. Recommendations for skin prep and foam dressing. Bilateral heel medix boots placed back on patient. Dressing change instructions left in room and extra Hydrofera Blue left in room for dressing change on Tuesday. Bed lowered and call light in reach. Spoke with RN regarding POC. Will follow patient regarding wound care
--- NOTE | 2019-06-14 11:56 | PDOC2 ---
HOLLIS HATCH APPROVER 06/14/19 1155: CARDIAC CONSULT DATE OF CONSULT Date of Consult DATE: 06/14/19 TIME: 11:01 REASON FOR CONSULT Reason for Consult: CAD. surgical candidate? REFERRING PHYSICIAN Referring Physician: Greta SOURCE Source: Chart review, Patient HISTORY OF PRESENT ILLNESS HISTORY OF PRESENT ILLNESS This is a 78 yo male admitted for nausea and vomiting blood. He was initially at [facility] and transferred to [facility] for further treatment. He had an EGD and noted with erosive gastritis treated by GI. He is known for significant use of NSAIDs and also has lasix and marilu He was noted with CKD as an outpt and due to see a toll line mechanic as an outpt. He currently has significant RENATA and with left shoulder infection and needing at least an I & D He is appearing exhausted and his attention span is limited currently. No complains of chest pain, SOA. He is currently laying flat without any respiratory distress. I talked to his and pt had CABG x4 in 1999 and has not had any MPI nor LHC that she could recall after the CABG. He has been sick in the last 2 months but in his good days he has good functional capacity. No hx of arrhythmias and no mention to them for any cardiomyopathy. He sees Dr. Ashley from [facility] and saw him about 1.5 months ago. He still has dark green gastric drain via NGT to LIS. He has been off ASA for a while. PAST MEDICAL HISTORY Cardiovascular: CAD, HTN, Hyperlipidemia, Other (thoracic aneurysm repair) Pulmonary: Other (LEIGH?) CENTRAL NERVOUS SYSTEM: Other (neurofibromatosis) GI: Other (malik) Hepatobiliary: No pertinent hx Psych: Depression Musculoskeletal: Osteoarthritis, Other (chronic pain syndrome) Renal/: Chronic renal insuff, Benign prostatic enlarg. Endocrine: Diabetes (2), Hypothyroidism PAST SURGICAL HISTORY Past Surgical History: Arthroscopy (remote left reverse total shoulder replacem ent, right hand surgery), CABG (1999), Other (thoracic aneurysm repair ) FAMILY HISTORY Family History noncontributory SOCIAL HISTORY Smoke: No ALCOHOL: none Drugs: None Lives: with Family CURRENT MEDICATIONS CURRENT MEDICATIONS Current Medications Medications (Trade) Dose Ordered Sig/Lauren Route PRN Reason Start Time Stop Time Status Last Admin Dose Admin Daptomycin 560 mg/ Sodium Chloride 50 ml @ 100 mls/hr Q24H IV 06/13/19 14:00 06/13/19 16:04 Meropenem 1 gm/ Sodium Chloride 100 ml @ 200 mls/hr Q12HR IV 06/13/19 15:00 06/14/19 08:48 Pantoprazole Sodium (PROTONIX VIAL for IV PUSH) 40 mg DAILYAC IVP 06/14/19 07:30 06/14/19 08:48 Lidocaine/Sodium Bicarbonate (Buffered Lidocaine 1%) 3 ml 1X ONCE IJ 06/13/19 14:30 06/13/19 14:32 DC 06/13/19 14:39 ALLERGIES ALLERGIES: Coded Allergies: Penicillins (Verified Allergy, Intermediate, 06/08/19) tapentadol (Verified Allergy, Intermediate, 06/08/19) ROS Review of System limited, drowsy PHYSICAL EXAM General: Oriented X3, Cooperative, No acute distress HEENT: Atraumatic Lungs: Other (diminished bases) Heart: Regular rate (SR with pacs), Other (distant heart sounds) Abdomen: Other (diffuse abd tenderness) Extremities: No cyanosis, Other (No LE edema. left shoulder swollen with javier atous LA) Skin: Other (left calf wounds, venous dermatitis) Neuro: Normal speech, Sensation intact Psych/Mental Status: Other (flat affext appears exhausted) MUSCULOSKELETAL: Osteoarthritic changes both hands VITALS/I&O VITALS/I&O: Vital Signs Date Time Temp Pulse Resp B/P (MAP) Pulse Ox O2 Delivery O2 Flow Rate FiO2 06/14/19 09:19 18 91 Room Air 06/14/19 07:38 98.6 80 83/36 (52) 98.6 06/14/19 04:32 2.0 I & O 06/13/19 06/13/19 06/14/19 15:00 23:00 07:00 Intake Total 560 ml 0 ml 0 ml Output Total 400 ml 200 ml 300 ml Balance 160 ml -200 ml -300 ml LABS Lab: Laboratory Tests Test 06/13/19 16:59 06/13/19 21:12 06/14/19 03:40 06/14/19 07:16 Glucose (Fingerstick) 203 mg/dL (70-99) H 246 mg/dL (70-99) H 249 mg/dL (70-99) H White Blood Count 18.7 x10^3/uL (4.0-11.0) H Red Blood Count 3.73 x10^6/uL (4.30-5.70) L Hemoglobin 12.0 g/dL (13.0-17.5) L Hematocrit 35.8 % (39.0-53.0) L Mean Corpuscular Volume 96 fL (79-100) Mean Corpuscular Hemoglobin 32 pg (25-35) Mean Corpuscular Hemoglobin Concent 33 g/dL (31-37) Red Cell Distribution Width 14.5 % (11.5-14.5) Platelet Count 446 x10^3/uL (140-400) H Sodium Level 136 mmol/L (136-145) Potassium Level 4.4 mmol/L (3.5-5.1) Chloride Level 98 mmol/L (98-107) Carbon Dioxide Level 18 mmol/L (21-32) L Anion Gap 20 (6-14) H Blood Urea Nitrogen 86 mg/dL (8-26) H Creatinine 3.6 mg/dL (0.7-1.3) H Estimated GFR (Cockcroft-Gault) 16.5 BUN/Creatinine Ratio 24 (6-20) H Glucose Level 243 mg/dL (70-99) H Calcium Level 7.7 mg/dL (8.5-10.1) L Total Bilirubin 0.9 mg/dL (0.2-1.0) Aspartate Amino Transferase (AST) 24 U/L (15-37) Alanine Aminotransferase (ALT) 16 U/L (16-63) Alkaline Phosphatase 274 U/L (46-116) H Total Protein 5.3 g/dL (6.4-8.2) L Albumin 1.2 g/dL (3.4-5.0) L Albumin/Globulin Ratio 0.3 (1.0-1.7) L Laboratory Tests 06/14/19 03:40 Laboratory Tests 06/14/19 03:40 ASSESSMENT/PLAN ASSESSMENT/PLAN 1. Hematemesis/Malik: S/P EGD with gastric erosions. NGT to LIS in place per G I 2. Sepsis 3. Left shoulder/arm abscess with remote hx of rTSA: will need I & D 4. CAD: remote CABG x4 in 1999 and no recent LHC/MPI post. No cardiac symptoms. 5. TAA with remote repair 6. HTN: hypotensive currently 7. HLP 8. DM2 9. PSVT: noted RBBB and maintaing SR with brief burst of SVTs. 10. Severe RENATA on CKD Recommendations 1. Preop surgical eval, high risk for perioperative CV events for noncardiac surgery. I & D due this evening 2. Transfer to ICU. Nephrology consult 3. Pressors as warranted. Antibiotics on board per ID. 4. TTE pending, EKG. 5. Will check Mg. 6. Monitor for sustained SVTs and will utilize Digoxin sparingly. Will follow along. MARLA GLOVER MD 06/14/19 1639: CARDIAC CONSULT ASSESSMENT/PLAN ASSESSMENT/PLAN Pt. seen and examined. Agree with above GRAPHIC COORDINATOR note. 78 y.o male with critical illness presenting with sepsis. He would be deemed MODERATE RISK for this orthopedic surgery. Spoke to his primary meat cooler and family Echo reviewed. EKG reviewed. No further CV testing needed. We will follow along peripherally. HOLLIS HATCH APRN Jun 14, 2019 11:55 MARLA GLOVER MD Jun 14, 2019 16:39
--- NOTE | 2019-06-14 12:00 | CARD ---
MR#: [id number] Date of Study: 06/14/2019 Ordering Physician: HOLLIS HATCH, Referring Physician: HOLLIS HATCH Tech: Daniela Meyers ANKIT APPROVED REPORT EXAM: LIMITED Two-dimensional echocardiogram with Doppler and color Doppler. Other Information Quality : Technically Limited Technically limited study due to patient supine position INDICATION Pre-Op Left Shoulder Surgery Surgery/Intervention CABG: Date: 07/09/2000 2D DIMENSIONS Left Atrium(2D)3.3 (1.6-4.0cm)IVSd0.7 (0.7-1.1cm) Aortic Root(2D)3.3 (2.0-3.7cm)LVDd3.0 (3.9-5.9cm) PWd0.7 (0.7-1.1cm)LVDs2.6 (2.5-4.0cm) FS (%) 30.0 %SV12.1 ml LVEF(%)60.0 (>50%) Aortic Valve AoV Peak Abdulkadir.147.6cm/sAoV VTI15.2cm AO Peak GR.8.7mmHgLVOT VTI 13.16cm AO Mean GR.5mmHg Mitral Valve MV E Gywoidhr00.2cm/sMV DECEL [id number] MV A Mogiqkzk10.1cm/sE/A Ratio0.5 TDI Lateral E' P. V3.41cm/sMedial E' P. V5.08cm/s E/Lateral E'12.7E/Medial E'8.5 LEFT VENTRICLE Probable normal LV function. Ef 55% RIGHT VENTRICLE RV not well visualized. ATRIA Not well visualized. AORTIC VALVE The aortic valve is not well visualized but appears to be functioning normally by Doppler interrogati on. . MITRAL VALVE Not well visualized TRICUSPID VALVE Not well visualized. PULMONIC VALVE The pulmonic valve is not well visualized. GREAT VESSELS Not well visualized. The IVC was not visualized. PERICARDIAL EFFUSION There is no evidence of significant pericardial effusion. Critical Notification Critical Value: No <Conclusion> Probable normal LV function. Ef 55% Signed by : Enoch Archibald, Electronically Approved : 06/14/2019 11:59:51
--- NOTE | 2019-06-14 12:01 | NUR ---
The patient has episodes of hypotension SBP 70-80s, notified Dr. Hernandes who was rounding the unit. This nurse also paged Dr. Arambula at [phone] and an order was received for NS bolus. The repeat BP was 91/32 HR 77 after 15 minutes of saline hydration. The patient is alert, oriented x3, complains of pain on his left shoulder 10/10, prn pain medicine will be given per order. Subspecialty consults to cardiology and nephrology were done. This nurse was instructed to transfer the patient to ICU for close monitoring.
[2019-06-14 12:19] LABS: HDLC 11 mg/dL (40-60); MAGNESIUM 2.2 mg/dL (1.8-2.4); TRIGLYCERIDES 63 mg/dL (0-150); VLDLC 13 mg/dL (0-40)
[2019-06-14 12:36] LABS: LDLC 26 mg/dL (0-100)
[2019-06-14 12:37] LABS: CHOLESTEROL < 50 mg/dL (0-200)
--- NOTE | 2019-06-14 13:08 | EKG ---
[facility] [address] [place] [address] Test Date: 2019-06-14 Test Time: 12:59:13 Pat Name: ROSLYN MOORE Department: Room: 646 1 Gender: M Business Investor: KARLEE : 1940 Requested By: HOLLIS HATCH Order Number: [id number] Reading MD: Enoch Archibald MD Measurements Intervals [place] Rate: 79 P: 38 NH: 212 QRS: 54 QRSD: 134 T: 1 QT: 416 QTc: 484 Interpretive Statements SINUS RHYTHM RBBB Electronically Signed On 06-14-2019 14:19:21 CDT by Enoch Archibald MD
--- NOTE | 2019-06-14 13:09 | PDOC2 ---
CONSULT Date of Consult Date of Consult DATE: 06/14/19 TIME: 13:01 Reason for Consult Reason for Consult: RENATA Referring Physician Referring Physician: CATERINA Identification/Chief Complaint Chief Complaint ABD PAIN Source Source: Chart review History of Present Illness Reason for Visit: THIS IS A 78 YR OLD WITH ABD PAIN, HAS BEEN DX WITH EROSIVE GASTRITIS. HAS HX OF BAUTISTA-2 INHIBITORS AND NSAID USE IN THE PAST BUT NONE SINCE MARCH. RECENTLY HAS HAD LEFT SHOULDER SURGERY AND NOW HAS AN EFFUSION FELT TO BE INFECTED AT THIS JOINT. HE HAS SIGNIFICANT LEUCOCYTOSIS WITH LEFT SHIFT AND HYPOTENSION. HX NOTABLE FOR CKD STAGE 3 WITH CR OF 1.5. CR NOW UP TO 3.6 WITH SOME MET ACIDOSIS AND HE IS ALSO HYPOTENSIVE WITH SBP OF ABOUT 80-85. VERY ILL. ALSO HAS HAD SOME BLACK EMESIS. HE HAS AN NGT IN PLACE. BPH AND URINARY RETENTION ALSO NOTED AND THE PT HAS HAD A MORA PLACED AND STARTED ON FLOMAX. UROLOGY IS SEEING THE PT. ALSO COLONIC DISTENTION SUGGESTIVE OF TESS'S Past Medical History Cardiovascular: CAD, HTN, Hyperlipidemia, Other (thoracic aneurysm repair) Pulmonary: Other (LEIGH?) CENTRAL NERVOUS SYSTEM: Other (neurofibromatosis) GI: Other (tess) Hepatobiliary: No pertinent hx Psych: Depression Musculoskeletal: Osteoarthritis, Other (chronic pain syndrome) Renal/: Chronic renal insuff, Benign prostatic enlarg. Endocrine: Diabetes (2), Hypothyroidism Past Surgical History Past Surgical History: Arthroscopy (remote left reverse total shoulder replacement, right hand surgery), CABG (1999), Other (thoracic aneurysm repair ) Family History Family History: Family History Unknown Social History No ALCOHOL: none Drugs: None Lives: with Family Current Medications Current Medications Current Medications Pantoprazole Sodium (PROTONIX VIAL for IV PUSH) 40 mg BID IVP Last administered on 06/11/19at 09:22; Start 06/07/19 at 21:00; Stop 06/11/19 at 12:41; Status DC Sodium Chloride 1,000 ml @ 75 mls/hr [id number] IV Last administered on 06/09/19at 11:36; Start 06/07/19 at 16:30; Stop 06/09/19 at 12:08; Status DC Bisacodyl (Dulcolax Supp) 10 mg 1X ONCE WV Last administered on 06/07/19at 21:40; Start 06/07/19 at 17:45; Stop 06/07/19 at 17:46; Status DC Hydromorphone HCl (Dilaudid) 1 mg PRN Q4HRS PRN IVP PAIN Last administered on 06/07/19at 18:04; Start 06/07/19 at 17:45; Stop 06/07/19 at 21:48; Status DC Lorazepam (Ativan) 0.5 mg PRN Q6HRS PRN PO ANXIETY / AGITATION; Start 06/07/19 at 18:00; Stop 06/07/19 at 18:14; Status DC Nicotine (Nicoderm Cq 21mg) 1 patch PRN DAILY PRN TD SMOKING CESSATION; Start 06/07/19 at 18:00; Stop 06/07/19 at 18:14; Status DC Hydromorphone HCl (Dilaudid) 2 mg PRN Q3HRS PRN IV PAIN Last administered on 06/14/19at 12:39; Start 06/07/19 at 22:00 Ringer's Solution 1,000 ml @ 75 mls/hr [id number] IV Last administered on 06/08/19at 14:01; Start 06/08/19 at 09:15; Stop 06/09/19 at 08:01; Status DC Propofol 20 ml @ As Directed STK-MED ONCE IV ; Start 06/08/19 at 10:20; Stop 06/08/19 at 10:20; Status DC Lidocaine HCl (Lidocaine Pf 2% Vial) 5 ml STK-MED ONCE .ROUTE ; Start 06/08/19 at 10:20; Stop 06/08/19 at 10:20; Status DC Finasteride (Proscar) 5 mg DAILY PO Last administered on 06/12/19at 08:36; Start 06/08/19 at 12:00 Furosemide (Lasix) 40 mg DAILY PO Last administered on 06/12/19at 08:36; Start 06/08/19 at 12:00 Levothyroxine Sodium (Synthroid) 175 mcg DAILY06 PO Last administered on 06/13/19at 06:18; Start 06/08/19 at 12:00 Simvastatin (Zocor) 40 mg QHS PO Last administered on 06/12/19at 21:26; Start 06/08/19 at 21:00 Testosterone Cypionate (Depo-Testosterone) 200 mg Q2WKS IM ; Start 06/22/19 at 09:00 Vitamin B Complex (Bud B) 1 tab DAILY PO Last administered on 06/12/19 08:36; Start 06/08/19 at 12:00 Insulin Glargine (Lantus Syringe) 30 unit QHS SQ Last administered on 06/13/19 22:26; Start 06/08/19 at 21:00 Non-Formulary Medication (Insuln Asp Prt/ Insulin Aspart (Novolog Mix 70-30 Flexpen Syrn)) 1 unit BIDACBL SQ ; Start 06/08/19 at 11:30; Stop 06/08/19 at 19:34; Status DC Losartan Potassium (Cozaar) 100 mg DAILY PO Last administered on 06/12/19 08:36; Start 06/08/19 at 12:00 Metoprolol Succinate (Toprol Xl) 200 mg DAILY PO Last administered on 06/12/19 08:36; Start 06/08/19 at 12:00 Morphine Sulfate (Ms Contin) 60 mg BID PO Last administered on 06/12/19 21:26; Start 06/08/19 at 12:00 Nifedipine (Procardia Xl) 60 mg DAILY PO Last administered on 06/12/19 08:36; Start 06/08/19 at 12:00 Insulin Human Lispro (HumaLOG) 0-5 UNITS TIDWMEALS SQ Last administered on 06/09/19at 11:36; Start 06/08/19 at 17:00; Stop 06/09/19 at 11:38; Status DC Dextrose (Dextrose 50%-Water Syringe) 12.5 gm PRN Q15MIN PRN IV SEE COMMENTS; Start 06/08/19 at 15:30; Stop 06/09/19 at 15:19; Status DC Dextrose 250 ml PRN Q15MIN PRN IV SEE COMMENTS; Start 06/08/19 at 15:30; Stop 06/09/19 at 15:19; Status DC Insulin Human Lispro (HumaLOG) 0-9 UNITS TIDWMEALS SQ Last administered on 06/14/19at 12:39; Start 06/09/19 at 12:00 Dextrose (Dextrose 50%-Water Syringe) 12.5 gm PRN Q15MIN PRN IV SEE COMMENTS; Start 06/09/19 at 11:45 Dextrose 250 ml PRN Q15MIN PRN IV SEE COMMENTS; Start 06/09/19 at 11:45; Stop 06/09/19 at 15:19; Status DC Pantoprazole Sodium (Protonix) 40 mg DAILYAC PO Last administered on 06/12/19at 08:36; Start 06/12/19 at 07:30; Stop 06/13/19 at 13:27; Status DC Polyethylene Glycol (miraLAX PACKET) 17 gm DAILY PO ; Start 06/12/19 at 09:00; Stop 06/12/19 at 12:28; Status DC Polyethylene Glycol (miraLAX PACKET) 17 gm PRN DAILY PRN PO CONSTIPATION, 1ST CHOICE; Start 06/11/19 at 15:45 Bisacodyl (Dulcolax Tab) 5 mg PRN DAILY PRN PO CONSTIPATION, 2ND CHOICE; Start 06/11/19 at 15:45 Tamsulosin HCl (Flomax) 0.4 mg QHS PO Last administered on 06/12/19at 21:26; Start 06/12/19 at 21:00 Finasteride (Proscar) 5 mg DAILY PO ; Start 06/12/19 at 12:00; Stop 06/13/19 at 09:39; Status DC Sodium Chloride 500 ml @ 500 mls/hr 1X ONCE IV Last administered on 06/13/19at 12:45; Start 06/13/19 at 10:00; Stop 06/13/19 at 10:59; Status DC Ondansetron HCl (Zofran) 4 mg PRN Q6HRS PRN IV NAUSEA/VOMITING; Start 06/13/19 at 09:45; Status UNV Sodium Chloride 1,000 ml @ 125 mls/hr Q8H IV Last administered on 06/14/19at 08:48; Start 06/13/19 at 11:00 Ondansetron HCl (Zofran) 4 mg PRN Q4HRS PRN IV NAUSEA/VOMITING Last administered on 06/13/19at 22:15; Start 06/13/19 at 09:45 Ondansetron HCl (Zofran) 4 mg STK-MED ONCE .ROUTE ; Start 06/13/19 at 09:39; Stop 06/13/19 at 09:40; Status DC Daptomycin 560 mg/ Sodium Chloride 50 ml @ 100 mls/hr Q24H IV Last administered on 06/13/19at 16:04; Start 06/13/19 at 14:00; Stop 06/14/19 at 11:15; Status DC Meropenem 1 gm/ Sodium Chloride 100 ml @ 200 mls/hr Q12HR IV Last administered on 06/14/19at 08:48; Start 06/13/19 at 15:00 Pantoprazole Sodium (PROTONIX VIAL for IV PUSH) 40 mg DAILYAC IVP Last administered on 06/14/19at 08:48; Start 06/14/19 at 07:30 Lidocaine/Sodium Bicarbonate (Buffered Lidocaine 1%) 3 ml STK-MED ONCE .ROUTE ; Start 06/13/19 at 13:59; Stop 06/13/19 at 14:00; Status DC Lidocaine/Sodium Bicarbonate (Buffered Lidocaine 1%) 3 ml 1X ONCE IJ Last administered on 06/13/19at 14:39; Start 06/13/19 at 14:30; Stop 06/13/19 at 14:32; Status DC Amino Acids/ Electrolytes/ Dextrose 1,000 ml @ 80 mls/hr [id number] IV ; Start 06/14/19 at 10:30 Daptomycin 560 mg/ Sodium Chloride 50 ml @ 100 mls/hr Q48H IV ; Start 06/15/19 at 14:00 Sodium Chloride 500 ml @ 500 mls/hr 1X ONCE IV Last administered on 06/14/19at 11:54; Start 06/14/19 at 11:45; Stop 06/14/19 at 12:44; Status DC Sodium Chloride 500 ml @ 500 mls/hr 1X ONCE IV Last administered on 06/14/19at 12:25; Start 06/14/19 at 11:45; Stop 06/14/19 at 12:44; Status DC Active Scripts Active Reported Foltx Tablet (B12/Levomefolate Calcium/B-6) 1 Each Tablet 1 Each PO AFTRNOON Testosterone Cypionate 200 Mg/1 Ml Vial 1 Ml IM Q2WKS Novolog Mix 70-30 Flexpen Syrn (Insuln Asp Prt/Insulin Aspart) 100 Unit/1 Ml Insuln.pen 1 Unit SQ BIDACBL Lantus Solostar (Insulin Glargine,Hum.rec.anlog) 100 Unit/1 Ml Insuln.pen 30 Unit SQ QHS Nifedipine Er (Nifedipine) 60 Mg Tab.er.24 1 Tab PO DAILY Morphine Sulfate Er (Morphine Sulfate) 60 Mg Tablet.er 1 Tab PO BID Furosemide 40 Mg Tablet 40 Mg PO DAILY Finasteride 5 Mg Tablet 1 Tab PO DAILY Simvastatin 40 Mg Tablet 1 Tab PO QHS Metoprolol Succinate ( Xl ) (Metoprolol Succinate) 200 Mg Tab.er.24h 1 Tab PO DAILY Levothyroxine Sodium 175 Mcg Tablet 1 Tab PO DAILY Losartan-Hctz 100-12.5 Mg Tab (Losartan/Hydrochlorothiazide) 1 Each Tablet 1 Tab PO DAILY Allergies Allergies: Coded Allergies: Penicillins (Verified Allergy, Intermediate, 06/08/19) tapentadol (Verified Allergy, Intermediate, 06/08/19) ROS Review of System UNABLE TO OBTAIN Physical Exam General: Cooperative, mild distress HEENT: Atraumatic, PERRLA, EOMI, Other (DRY MUCOSA) Lungs: Clear to auscultation Heart: Regular rate Abdomen: No tenderness, Other (HYPOACTIVE NGT IN PLACE) Extremities: No cyanosis Skin: No breakdown Neuro: Other (CONFUSED) Psych/Mental Status: Other (CONFUSED) MUSCULOSKELETAL: No deformity, No swelling Vitals VITALS Vital Signs Date Time Temp Pulse Resp B/P (MAP) Pulse Ox O2 Delivery O2 Flow Rate FiO2 06/14/19 12:39 20 96 Room Air 06/14/19 11:54 77 91/32 (51) 06/14/19 11:00 98.4 98.4 06/14/19 04:32 2.0 Labs Labs Laboratory Tests Test 06/12/19 17:01 06/12/19 21:18 06/13/19 02:35 06/13/19 07:40 Glucose (Fingerstick) 157 mg/dL (70-99) 124 mg/dL (70-99) 181 mg/dL (70-99) White Blood Count 20.8 x10^3/uL (4.0-11.0) Red Blood Count 3.67 x10^6/uL (4.30-5.70) Hemoglobin 11.5 g/dL (13.0-17.5) Hematocrit 34.7 % (39.0-53.0) Mean Corpuscular Volume 95 fL (79-100) Mean Corpuscular Hemoglobin 31 pg (25-35) Mean Corpuscular Hemoglobin Concent 33 g/dL (31-37) Red Cell Distribution Width 13.9 % (11.5-14.5) Platelet Count 385 x10^3/uL (140-400) Erythrocyte Sedimentation Rate 43 (0-15) Sodium Level 137 mmol/L (136-145) Potassium Level 4.4 mmol/L (3.5-5.1) Chloride Level 101 mmol/L (98-107) Carbon Dioxide Level 24 mmol/L (21-32) Anion Gap 12 (6-14) Blood Urea Nitrogen 58 mg/dL (8-26) Creatinine 2.3 mg/dL (0.7-1.3) Estimated GFR (Cockcroft-Gault) 27.7 BUN/Creatinine Ratio 25 (6-20) Glucose Level 142 mg/dL (70-99) Calcium Level 8.3 mg/dL (8.5-10.1) Total Bilirubin 0.8 mg/dL (0.2-1.0) Aspartate Amino Transf (AST/SGOT) 13 U/L (15-37) Alanine Aminotransferase (ALT/SGPT) 9 U/L (16-63) Alkaline Phosphatase 135 U/L (46-116) C-Reactive Protein, Quantitative 205.1 mg/L (0-3.3) Total Protein 5.5 g/dL (6.4-8.2) Albumin 1.4 g/dL (3.4-5.0) Albumin/Globulin Ratio 0.3 (1.0-1.7) Test 06/13/19 11:01 06/13/19 16:59 06/13/19 21:12 06/14/19 03:40 Glucose (Fingerstick) 181 mg/dL (70-99) 203 mg/dL (70-99) 246 mg/dL (70-99) White Blood Count 18.7 x10^3/uL (4.0-11.0) Red Blood Count 3.73 x10^6/uL (4.30-5.70) Hemoglobin 12.0 g/dL (13.0-17.5) Hematocrit 35.8 % (39.0-53.0) Mean Corpuscular Volume 96 fL (79-100) Mean Corpuscular Hemoglobin 32 pg (25-35) Mean Corpuscular Hemoglobin Concent 33 g/dL (31-37) Red Cell Distribution Width 14.5 % (11.5-14.5) Platelet Count 446 x10^3/uL (140-400) Sodium Level 136 mmol/L (136-145) Potassium Level 4.4 mmol/L (3.5-5.1) Chloride Level 98 mmol/L (98-107) Carbon Dioxide Level 18 mmol/L (21-32) Anion Gap 20 (6-14) Blood Urea Nitrogen 86 mg/dL (8-26) Creatinine 3.6 mg/dL (0.7-1.3) Estimated GFR (Cockcroft-Gault) 16.5 BUN/Creatinine Ratio 24 (6-20) Glucose Level 243 mg/dL (70-99) Calcium Level 7.7 mg/dL (8.5-10.1) Magnesium Level 2.2 mg/dL (1.8-2.4) Total Bilirubin 0.9 mg/dL (0.2-1.0) Aspartate Amino Transf (AST/SGOT) 24 U/L (15-37) Alanine Aminotransferase (ALT/SGPT) 16 U/L (16-63) Alkaline Phosphatase 274 U/L (46-116) Total Protein 5.3 g/dL (6.4-8.2) Albumin 1.2 g/dL (3.4-5.0) Albumin/Globulin Ratio 0.3 (1.0-1.7) Triglycerides Level 63 mg/dL (0-150) Cholesterol Level < 50 mg/dL (0-200) LDL Cholesterol, Calculated 26 mg/dL (0-100) VLDL Cholesterol, Calculated 13 mg/dL (0-40) Non-HDL Cholesterol Calculated 39 mg/dL (0-129) HDL Cholesterol 11 mg/dL (40-60) Cholesterol/HDL Ratio Test 06/14/19 07:16 06/14/19 11:54 Glucose (Fingerstick) 249 mg/dL (70-99) 251 mg/dL (70-99) Laboratory Tests Test 06/13/19 16:59 06/13/19 21:12 06/14/19 03:40 06/14/19 07:16 Glucose (Fingerstick) 203 mg/dL (70-99) 246 mg/dL (70-99) 249 mg/dL (70-99) White Blood Count 18.7 x10^3/uL (4.0-11.0) Red Blood Count 3.73 x10^6/uL (4.30-5.70) Hemoglobin 12.0 g/dL (13.0-17.5) Hematocrit 35.8 % (39.0-53.0) Mean Corpuscular Volume 96 fL (79-100) Mean Corpuscular Hemoglobin 32 pg (25-35) Mean Corpuscular Hemoglobin Concent 33 g/dL (31-37) Red Cell Distribution Width 14.5 % (11.5-14.5) Platelet Count 446 x10^3/uL (140-400) Sodium Level 136 mmol/L (136-145) Potassium Level 4.4 mmol/L (3.5-5.1) Chloride Level 98 mmol/L (98-107) Carbon Dioxide Level 18 mmol/L (21-32) Anion Gap 20 (6-14) Blood Urea Nitrogen 86 mg/dL (8-26) Creatinine 3.6 mg/dL (0.7-1.3) Estimated GFR (Cockcroft-Gault) 16.5 BUN/Creatinine Ratio 24 (6-20) Glucose Level 243 mg/dL (70-99) Calcium Level 7.7 mg/dL (8.5-10.1) Magnesium Level 2.2 mg/dL (1.8-2.4) Total Bilirubin 0.9 mg/dL (0.2-1.0) Aspartate Amino Transf (AST/SGOT) 24 U/L (15-37) Alanine Aminotransferase (ALT/SGPT) 16 U/L (16-63) Alkaline Phosphatase 274 U/L (46-116) Total Protein 5.3 g/dL (6.4-8.2) Albumin 1.2 g/dL (3.4-5.0) Albumin/Globulin Ratio 0.3 (1.0-1.7) Triglycerides Level 63 mg/dL (0-150) Cholesterol Level < 50 mg/dL (0-200) LDL Cholesterol, Calculated 26 mg/dL (0-100) VLDL Cholesterol, Calculated 13 mg/dL (0-40) Non-HDL Cholesterol Calculated 39 mg/dL (0-129) HDL Cholesterol 11 mg/dL (40-60) Cholesterol/HDL Ratio Test 06/14/19 11:54 Glucose (Fingerstick) 251 mg/dL (70-99) Assessment/Plan Assessment/Plan IMP RENATA-ATN CKD STAGE 3-CR PROB ABOUT 1.5 SEPSIS HYPOTENSION URINARY RETENTION LEFT SHOULDER ABSCESS GASTRITIS LEUCOCYTOSIS BPH PLAN STOP ALL HIS ANTIHYPERTENSIVES AND DIURETICS ALSO STOP HIS FLOMAX FOR NOW DUE TO HYPOTENSION ANTIBIOTICS ORTHOPEDIC EVAL HYDRATION PPN VERY ILL MAY NEED DIALYSIS UPDATED FAMILY WILL FOLLOW DEREJE VOGEL MD Jun 14, 2019 13:09
[2019-06-14] MEDS ORDERED: METHYLNALTREXONE 12 MG/0.6 ML VIAL. SQ ONE (14:00)
[2019-06-14] MEDS: NOREPINEPHRIN 8MG/250ML PREMIX 250 ML IV PRN ×2 (14:35→21:38)
[2019-06-14 16:03] LABS: BASE EXCESS ABG -11 mmol/L (-3-3); HCO3 ABG 13 mmol/L (21-28); PCO2 ABG 25 mmHg (35-46); PO2 ABG 68 mmHg (65-108); SAT O2 ABG 91 % (92-99)
[2019-06-14 16:05] LABS: FIO2 ABG 21
[2019-06-14] MEDS ORDERED: DEXAMETHASONE SOD PHOS 4 MG/ML VIAL ONE (16:17)
[2019-06-14] MEDS ORDERED: PROPOFOL 20 ML IV ONE (16:17)
[2019-06-14] MEDS ORDERED: FAMOTIDINE 20 MG/2 ML VIAL ONE (16:17)
[2019-06-14] MEDS ORDERED: LIDOCAINE 2% PF 5 ML VIAL. ONE (16:17)
[2019-06-14] MEDS ORDERED: SUCCINYLCHOLINE 200 MG/10 ML VIAL. ONE (16:17)
[2019-06-14] MEDS ORDERED: ONDANSETRON PF 4 MG/2 ML VIAL. ONE (16:17)
[2019-06-14] MEDS ORDERED: fentaNYL PF VIAL 100 MCG/2 ML VIAL ONE (16:17)
[2019-06-14 16:18] LABS: PROTHROMBIN TIME PATIENT 17.3 SEC (11.7-14.0)
--- NOTE | 2019-06-14 16:25 | NUR ---
AUDREY following pt. Spoke with Steffi at [facility] triage. She reported [facility] ortho team had informed them they will take pt back to OR, -[facility] is closing request at this time. AUDREY updated her pt has also moved to ICU. Discussed with ARAMIS Magaña.
[2019-06-14] MEDS ORDERED: ROCURONIUM 50 MG/5 ML VIAL. ONE (16:32)
[2019-06-14] MEDS ORDERED: PHENYLEPHRINE in 0.9% NACL PF 1 MG/10 ML SYRINGE. IV ONE (17:03)
[2019-06-14] MEDS ORDERED: KETAMINE HCL IN NACL, ISO-OSM 50 MG/5 ML SYRINGE ONE (17:03)
--- NOTE | 2019-06-14 17:28 | PDOC ---
PROGRESS NOTES Subjective Subjective Patient in ICU and septic now.. I left a message with Dr. Martinez's office on Tuesday, and got a voicemail message back on my phone on from Christy in Dr. Martinez's office. Christy's voicemanil said that Dr. Martinez said aspiration was "not necessarily something that he would insist on; it's optional for the patient." (but I'm guessing Dr. Martinez's impression was from his office exam a few weeks ago when there was likely only a hematoma and instability.) Per that message they would contact the patient and offer him an appointment. The aspiration was performed by IR as recommended, and they were able to withdraw about 10 mL of pus by verbal report. I spoke to the transfer center at [facility] today requesting transfer of this complex patient to a tertiary center, and the orthopedic surgeon that I spoke to essentially refused transfer of the patient and recommended that I recontact Dr. Martinez's office. I called Dr. Martinez's office a second time today and spoke to the phone nurse about the urgent problem. Dr. Martinez called me back from the [place] [facility] on his cell phone, en route to [facility]. He was obviously unable to accept the patient in transfer at this moment, but is willing to take the patient when he returns in about 10 days. He didn't think his partners have the expertise, and gave me the names of Drs. Kern or Mani as possible referrals, but would rather have the patient back himself when he is back in [place]. I also had spoken to Dr. Weaver and the patient is becoming septic. Objective Vital Signs Vital Signs Date Time Temp Pulse Resp B/P (MAP) Pulse Ox O2 Delivery O2 Flow Rate FiO2 06/14/19 14:00 Room Air 06/14/19 12:39 20 96 06/14/19 11:54 77 91/32 (51) 06/14/19 11:00 98.4 98.4 06/14/19 04:32 2.0 Physical Exam Shoulder with dressing from aspiration, but still has an effusion. Patient appears ill. Pain at shoulder BP labile Labs Unfortunately, microbiology results from the shoulder aspiration are not even listed as being drawn yet--I believe these go out of state for evaluation and they will show up in the EMR once they are logged in the out of state lab. Per verbal report there was 10 mL of pus at shoulder aspiration, and probably more fluid/pus but too loculated to aspirate. Blood cultures are negative to date. Laboratory Tests Test 06/12/19 21:18 06/13/19 02:35 06/13/19 07:40 06/13/19 11:01 Glucose (Fingerstick) 124 mg/dL (70-99) 181 mg/dL (70-99) 181 mg/dL (70-99) White Blood Count 20.8 x10^3/uL (4.0-11.0) Red Blood Count 3.67 x10^6/uL (4.30-5.70) Hemoglobin 11.5 g/dL (13.0-17.5) Hematocrit 34.7 % (39.0-53.0) Mean Corpuscular Volume 95 fL (79-100) Mean Corpuscular Hemoglobin 31 pg (25-35) Mean Corpuscular Hemoglobin Concent 33 g/dL (31-37) Red Cell Distribution Width 13.9 % (11.5-14.5) Platelet Count 385 x10^3/uL (140-400) Erythrocyte Sedimentation Rate 43 (0-15) Sodium Level 137 mmol/L (136-145) Potassium Level 4.4 mmol/L (3.5-5.1) Chloride Level 101 mmol/L (98-107) Carbon Dioxide Level 24 mmol/L (21-32) Anion Gap 12 (6-14) Blood Urea Nitrogen 58 mg/dL (8-26) Creatinine 2.3 mg/dL (0.7-1.3) Estimated GFR (Cockcroft-Gault) 27.7 BUN/Creatinine Ratio 25 (6-20) Glucose Level 142 mg/dL (70-99) Calcium Level 8.3 mg/dL (8.5-10.1) Total Bilirubin 0.8 mg/dL (0.2-1.0) Aspartate Amino Transf (AST/SGOT) 13 U/L (15-37) Alanine Aminotransferase (ALT/SGPT) 9 U/L (16-63) Alkaline Phosphatase 135 U/L (46-116) C-Reactive Protein, Quantitative 205.1 mg/L (0-3.3) Total Protein 5.5 g/dL (6.4-8.2) Albumin 1.4 g/dL (3.4-5.0) Albumin/Globulin Ratio 0.3 (1.0-1.7) Test 06/13/19 16:59 06/13/19 21:12 06/14/19 03:40 06/14/19 07:16 Glucose (Fingerstick) 203 mg/dL (70-99) 246 mg/dL (70-99) 249 mg/dL (70-99) White Blood Count 18.7 x10^3/uL (4.0-11.0) Red Blood Count 3.73 x10^6/uL (4.30-5.70) Hemoglobin 12.0 g/dL (13.0-17.5) Hematocrit 35.8 % (39.0-53.0) Mean Corpuscular Volume 96 fL (79-100) Mean Corpuscular Hemoglobin 32 pg (25-35) Mean Corpuscular Hemoglobin Concent 33 g/dL (31-37) Red Cell Distribution Width 14.5 % (11.5-14.5) Platelet Count 446 x10^3/uL (140-400) Sodium Level 136 mmol/L (136-145) Potassium Level 4.4 mmol/L (3.5-5.1) Chloride Level 98 mmol/L (98-107) Carbon Dioxide Level 18 mmol/L (21-32) Anion Gap 20 (6-14) Blood Urea Nitrogen 86 mg/dL (8-26) Creatinine 3.6 mg/dL (0.7-1.3) Estimated GFR (Cockcroft-Gault) 16.5 BUN/Creatinine Ratio 24 (6-20) Glucose Level 243 mg/dL (70-99) Calcium Level 7.7 mg/dL (8.5-10.1) Magnesium Level 2.2 mg/dL (1.8-2.4) Total Bilirubin 0.9 mg/dL (0.2-1.0) Aspartate Amino Transf (AST/SGOT) 24 U/L (15-37) Alanine Aminotransferase (ALT/SGPT) 16 U/L (16-63) Alkaline Phosphatase 274 U/L (46-116) Total Protein 5.3 g/dL (6.4-8.2) Albumin 1.2 g/dL (3.4-5.0) Albumin/Globulin Ratio 0.3 (1.0-1.7) Triglycerides Level 63 mg/dL (0-150) Cholesterol Level < 50 mg/dL (0-200) LDL Cholesterol, Calculated 26 mg/dL (0-100) VLDL Cholesterol, Calculated 13 mg/dL (0-40) Non-HDL Cholesterol Calculated 39 mg/dL (0-129) HDL Cholesterol 11 mg/dL (40-60) Cholesterol/HDL Ratio Test 06/14/19 11:54 06/14/19 16:00 Glucose (Fingerstick) 251 mg/dL (70-99) Prothrombin Time 17.3 SEC (11.7-14.0) Prothromb Time International Ratio 1.4 (0.8-1.1) O2 Saturation 91 % (92-99) Arterial Blood pH 7.34 (7.35-7.45) Arterial Blood pCO2 at Patient Temp 25 mmHg (35-46) Arterial Blood pO2 at Patient Temp 68 mmHg (65-108) Arterial Blood HCO3 13 mmol/L (21-28) Arterial Blood Base Excess -11 mmol/L (-3-3) FiO2 21 Laboratory Tests Test 06/13/19 21:12 06/14/19 03:40 06/14/19 07:16 06/14/19 11:54 Glucose (Fingerstick) 246 mg/dL (70-99) 249 mg/dL (70-99) 251 mg/dL (70-99) White Blood Count 18.7 x10^3/uL (4.0-11.0) Red Blood Count 3.73 x10^6/uL (4.30-5.70) Hemoglobin 12.0 g/dL (13.0-17.5) Hematocrit 35.8 % (39.0-53.0) Mean Corpuscular Volume 96 fL (79-100) Mean Corpuscular Hemoglobin 32 pg (25-35) Mean Corpuscular Hemoglobin Concent 33 g/dL (31-37) Red Cell Distribution Width 14.5 % (11.5-14.5) Platelet Count 446 x10^3/uL (140-400) Sodium Level 136 mmol/L (136-145) Potassium Level 4.4 mmol/L (3.5-5.1) Chloride Level 98 mmol/L (98-107) Carbon Dioxide Level 18 mmol/L (21-32) Anion Gap 20 (6-14) Blood Urea Nitrogen 86 mg/dL (8-26) Creatinine 3.6 mg/dL (0.7-1.3) Estimated GFR (Cockcroft-Gault) 16.5 BUN/Creatinine Ratio 24 (6-20) Glucose Level 243 mg/dL (70-99) Calcium Level 7.7 mg/dL (8.5-10.1) Magnesium Level 2.2 mg/dL (1.8-2.4) Total Bilirubin 0.9 mg/dL (0.2-1.0) Aspartate Amino Transf (AST/SGOT) 24 U/L (15-37) Alanine Aminotransferase (ALT/SGPT) 16 U/L (16-63) Alkaline Phosphatase 274 U/L (46-116) Total Protein 5.3 g/dL (6.4-8.2) Albumin 1.2 g/dL (3.4-5.0) Albumin/Globulin Ratio 0.3 (1.0-1.7) Triglycerides Level 63 mg/dL (0-150) Cholesterol Level < 50 mg/dL (0-200) LDL Cholesterol, Calculated 26 mg/dL (0-100) VLDL Cholesterol, Calculated 13 mg/dL (0-40) Non-HDL Cholesterol Calculated 39 mg/dL (0-129) HDL Cholesterol 11 mg/dL (40-60) Cholesterol/HDL Ratio Test 06/14/19 16:00 Prothrombin Time 17.3 SEC (11.7-14.0) Prothromb Time International Ratio 1.4 (0.8-1.1) O2 Saturation 91 % (92-99) Arterial Blood pH 7.34 (7.35-7.45) Arterial Blood pCO2 at Patient Temp 25 mmHg (35-46) Arterial Blood pO2 at Patient Temp 68 mmHg (65-108) Arterial Blood HCO3 13 mmol/L (21-28) Arterial Blood Base Excess -11 mmol/L (-3-3) FiO2 21 Assessment Assessment Left shoulder reverse arthroplasty Left shoulder fluid collection (effusion) infected, with sepsis Left shoulder instability, probably chronic Plan Plan of Care I called Dr. Martinez's office a second time today and spoke to the phone nurse about the urgent problem. Dr. Martinez called me back [facility] [place] [facility] on his [facility] phone, en route to [facility]. He was obviously unable to accept the patient in transfer at this moment, but is willing to take the patient when he returns in about 10 days. He didn't think his partners have the expertise, and gave me the names of Drs. Kern or Mani as possible referrals, but would rather have the patient back himself when he is back in [place]. I also had spoken to Dr. Weaver and the patient is becoming septic. I recommend urgent incision and drainage today due to the sepsis, with retention of implants at this time (this will likely resolve the acute sepsis, but is very unlikely to be curative of deep periprosthetic infection, and options include implant retention with chronic suppression, or implant removal and antibiotic spacer at a later date.) Dr. Martinez agreed with that plan by phone. I spoke to the patient and the family about the same, and they agree. We discussed risks of , ongoing infection, need for additional surgeries or other potential surgical or anesthetic complications. Anesthesia plans arterial or central line monitoring to control blood pressure in this septic unstable patient. Surgical site marked by me. BRITT TANG MD Jun 14, 2019 17:28
[2019-06-14] MEDS ORDERED: BUPIVACAINE-EPI 0.25%-1:200000 MPF 30 ML VIAL. INJ ONE (17:45)
[2019-06-14] MEDS ORDERED: CLINDAMYCIN 900MG PREMIX 50 ML IV ONE (18:07)
[2019-06-14] MEDS ORDERED: ALBUMIN HUMAN 5% 500 ML IV ONE ×2 (18:10→20:00)
--- NOTE | 2019-06-14 19:02 | PDOC ---
Date and Time Patient taken to OR. Large amount of pus drained from L shoulder area. He was on Levophed prior to surgery and had a significant partially compensated metabolic acidosis. We had to increase levophed in OR. Art line and CVP placed. Initial CVP measurement was 0-1mmHg. We gave 500ml albumin and increased CVP to 4. Due to metabolic acidosis as well as probable sepsis we elected to keep him on the ventilator overnight. He needs more volume Current Medications Current Medications Pantoprazole Sodium (PROTONIX VIAL for IV PUSH) 40 mg BID IVP Last administered on 06/11/19at 09:22; Start 06/07/19 at 21:00; Stop 06/11/19 at 12:41; Status DC Sodium Chloride 1,000 ml @ 75 mls/hr [id number] IV Last administered on 06/09/19at 11:36; Start 06/07/19 at 16:30; Stop 06/09/19 at 12:08; Status DC Bisacodyl (Dulcolax Supp) [address] Last administered on 06/07/19at 21:40; Start 06/07/19 at 17:45; Stop 06/07/19 at 17:46; Status DC Hydromorphone HCl (Dilaudid) 1 mg PRN Q4HRS PRN IVP PAIN Last administered on 06/07/19at 18:04; Start 06/07/19 at 17:45; Stop 06/07/19 at 21:48; Status DC Lorazepam (Ativan) 0.5 mg PRN Q6HRS PRN PO ANXIETY / AGITATION; Start 06/07/19 at 18:00; Stop 06/07/19 at 18:14; Status DC Nicotine (Nicoderm Cq 21mg) 1 patch PRN DAILY PRN TD SMOKING CESSATION; Start 06/07/19 at 18:00; Stop 06/07/19 at 18:14; Status DC Hydromorphone HCl (Dilaudid) 2 mg PRN Q3HRS PRN IV PAIN Last administered on 06/14/19at 12:39; Start 06/07/19 at 22:00 Ringer's Solution 1,000 ml @ 75 mls/hr [id number] IV Last administered on 06/08/19at 14:01; Start 06/08/19 at 09:15; Stop 06/09/19 at 08:01; Status DC Propofol 20 ml @ As Directed STK-MED ONCE IV ; Start 06/08/19 at 10:20; Stop 06/08/19 at 10:20; Status DC Lidocaine HCl (Lidocaine Pf 2% Vial) 5 ml STK-MED ONCE .ROUTE ; Start 06/08/19 at 10:20; Stop 06/08/19 at 10:20; Status DC Finasteride (Proscar) 5 mg DAILY PO Last administered on 06/12/19 08:36; Start 06/08/19 at 12:00 Furosemide (Lasix) 40 mg DAILY PO Last administered on 06/12/19 08:36; Start 06/08/19 at 12:00; Stop 06/14/19 at 13:01; Status DC Levothyroxine Sodium (Synthroid) 175 mcg DAILY06 PO Last administered on 06/13/19 06:18; Start 06/08/19 at 12:00 Simvastatin (Zocor) 40 mg QHS PO Last administered on 06/12/19 21:26; Start 06/08/19 at 21:00 Testosterone Cypionate (Depo-Testosterone) 200 mg Q2WKS IM ; Start 06/22/19 at 09:00 Vitamin B Complex (Bud B) 1 tab DAILY PO Last administered on 06/12/19 08:36; Start 06/08/19 at 12:00 Insulin Glargine (Lantus Syringe) 30 unit QHS SQ Last administered on 06/13/19 22:26; Start 06/08/19 at 21:00 Non-Formulary Medication (Insuln Asp Prt/ Insulin Aspart (Novolog Mix 70-30 Flexpen Syrn)) 1 unit BIDACBL SQ ; Start 06/08/19 at 11:30; Stop 06/08/19 at 19:34; Status DC Losartan Potassium (Cozaar) 100 mg DAILY PO Last administered on 06/12/19 08:36; Start 06/08/19 at 12:00; Stop 06/14/19 at 13:01; Status DC Metoprolol Succinate (Toprol Xl) 200 mg DAILY PO Last administered on 06/12/19 08:36; Start 06/08/19 at 12:00; Stop 06/14/19 at 13:01; Status DC Morphine Sulfate (Ms Contin) 60 mg BID PO Last administered on 06/12/19at 21:26; Start 06/08/19 at 12:00 Nifedipine (Procardia Xl) 60 mg DAILY PO Last administered on 06/12/19at 08:36; Start 06/08/19 at 12:00; Stop 06/14/19 at 13:01; Status DC Insulin Human Lispro (HumaLOG) 0-5 UNITS TIDWMEALS SQ Last administered on 06/09/19at 11:36; Start 06/08/19 at 17:00; Stop 06/09/19 at 11:38; Status DC Dextrose (Dextrose 50%-Water Syringe) 12.5 gm PRN Q15MIN PRN IV SEE COMMENTS; Start 06/08/19 at 15:30; Stop 06/09/19 at 15:19; Status DC Dextrose 250 ml PRN Q15MIN PRN IV SEE COMMENTS; Start 06/08/19 at 15:30; Stop 06/09/19 at 15:19; Status DC Insulin Human Lispro (HumaLOG) 0-9 UNITS TIDWMEALS SQ Last administered on 06/14/19at 12:39; Start 06/09/19 at 12:00 Dextrose (Dextrose 50%-Water Syringe) 12.5 gm PRN Q15MIN PRN IV SEE COMMENTS; Start 06/09/19 at 11:45 Dextrose 250 ml PRN Q15MIN PRN IV SEE COMMENTS; Start 06/09/19 at 11:45; Stop 06/09/19 at 15:19; Status DC Pantoprazole Sodium (Protonix) 40 mg DAILYAC PO Last administered on 06/12/19at 08:36; Start 06/12/19 at 07:30; Stop 06/13/19 at 13:27; Status DC Polyethylene Glycol (miraLAX PACKET) 17 gm DAILY PO ; Start 06/12/19 at 09:00; Stop 06/12/19 at 12:28; Status DC Polyethylene Glycol (miraLAX PACKET) 17 gm PRN DAILY PRN PO CONSTIPATION, 1ST CHOICE; Start 06/11/19 at 15:45 Bisacodyl (Dulcolax Tab) 5 mg PRN DAILY PRN PO CONSTIPATION, 2ND CHOICE; Start 06/11/19 at 15:45 Tamsulosin HCl (Flomax) 0.4 mg QHS PO Last administered on 06/12/19at 21:26; Start 06/12/19 at 21:00; Stop 06/14/19 at 13:01; Status DC Finasteride (Proscar) 5 mg DAILY PO ; Start 06/12/19 at 12:00; Stop 06/13/19 at 09:39; Status DC Sodium Chloride 500 ml @ 500 mls/hr 1X ONCE IV Last administered on 06/13/19at 12:45; Start 06/13/19 at 10:00; Stop 06/13/19 at 10:59; Status DC Ondansetron HCl (Zofran) 4 mg PRN Q6HRS PRN IV NAUSEA/VOMITING; Start 06/13/19 at 09:45; Status UNV Sodium Chloride 1,000 ml @ 125 mls/hr Q8H IV Last administered on 06/14/19at 08:48; Start 06/13/19 at 11:00 Ondansetron HCl (Zofran) 4 mg PRN Q4HRS PRN IV NAUSEA/VOMITING Last administer ed on 06/13/19at 22:15; Start 06/13/19 at 09:45 Ondansetron HCl (Zofran) 4 mg STK-MED ONCE .ROUTE ; Start 06/13/19 at 09:39; Stop 06/13/19 at 09:40; Status DC Daptomycin 560 mg/ Sodium Chloride 50 ml @ 100 mls/hr Q24H IV Last administered on 06/13/19at 16:04; Start 06/13/19 at 14:00; Stop 06/14/19 at 11:15; Status DC Meropenem 1 gm/ Sodium Chloride 100 ml @ 200 mls/hr Q12HR IV Last administered on 06/14/19at 08:48; Start 06/13/19 at 15:00 Pantoprazole Sodium (PROTONIX VIAL for IV PUSH) 40 mg DAILYAC IVP Last administered on 06/14/19at 08:48; Start 06/14/19 at 07:30 Lidocaine/Sodium Bicarbonate (Buffered Lidocaine 1%) 3 ml STK-MED ONCE .ROUTE ; Start 06/13/19 at 13:59; Stop 06/13/19 at 14:00; Status DC Lidocaine/Sodium Bicarbonate (Buffered Lidocaine 1%) 3 ml 1X ONCE IJ Last administered on 06/13/19at 14:39; Start 06/13/19 at 14:30; Stop 06/13/19 at 14:32; Status DC Amino Acids/ Electrolytes/ Dextrose 1,000 ml @ 80 mls/hr [id number] IV ; Start 06/14/19 at 10:30 Daptomycin 560 mg/ Sodium Chloride 50 ml @ 100 mls/hr Q48H IV ; Start 06/15/19 at 14:00 Sodium Chloride 500 ml @ 500 mls/hr 1X ONCE IV Last administered on 06/14/19at 11:54; Start 06/14/19 at 11:45; Stop 06/14/19 at 12:44; Status DC Sodium Chloride 500 ml @ 500 mls/hr 1X ONCE IV Last administered on 06/14/19at 12:25; Start 06/14/19 at 11:45; Stop 06/14/19 at 12:44; Status DC Methylnaltrexone Franklin (Relistor) 6 mg 1X ONCE SQ Last administered on 06/14/19at 14:15; Start 06/14/19 at 14:00; Stop 06/14/19 at 14:01; Status DC Norepinephrine Bitartrate 250 ml @ 17.398 mls/ hr CONT PRN IV SEE I/O RECORD Last administered on 06/14/19at 14:35; Start 06/14/19 at 14:30 Propofol 20 ml @ As Directed STK-MED ONCE IV ; Start 06/14/19 at 16:17; Stop 06/14/19 at 16:17; Status DC Dexamethasone Sodium Phosphate (Decadron) 4 mg STK-MED ONCE .ROUTE ; Start 06/14/19 at 16:17; Stop 06/14/19 at 16:17; Status DC Famotidine (Pepcid Vial) 20 mg STK-MED ONCE .ROUTE ; Start 06/14/19 at 16:17; Stop 06/14/19 at 16:17; Status DC Lidocaine HCl (Lidocaine Pf 2% Vial) 5 ml STK-MED ONCE .ROUTE ; Start 06/14/19 at 16:17; Stop 06/14/19 at 16:17; Status DC Ondansetron HCl (Zofran) 4 mg STK-MED ONCE .ROUTE ; Start 06/14/19 at 16:17; Stop 06/14/19 at 16:17; Status DC Succinylcholine Chloride (Anectine) 200 mg STK-MED ONCE .ROUTE ; Start 06/14/19 at 16:17; Stop 06/14/19 at 16:17; Status DC Fentanyl Citrate (Fentanyl 2ml Vial) 100 mcg STK-MED ONCE .ROUTE ; Start 06/14/19 at 16:17; Stop 06/14/19 at 16:17; Status DC Rocuronium Franklin (Zemuron) 50 mg STK-MED ONCE .ROUTE ; Start 06/14/19 at 16:32; Stop 06/14/19 at 16:32; Status DC Ketamine HCl (Ketamine) 50 mg STK-MED ONCE .ROUTE ; Start 06/14/19 at 17:03; Stop 06/14/19 at 17:03; Status DC Phenylephrine HCl (PHENYLEPHRINE in 0.9% NACL PF) 1 mg STK-MED ONCE IV ; Start 06/14/19 at 17:03; Stop 06/14/19 at 17:04; Status DC Bupivacaine HCl/ Epinephrine Bitart (Sensorcaine-Epi 0.25%-1:676752 Mpf) 30 ml 1X ONCE INJ ; Start 06/14/19 at 17:45; Stop 06/14/19 at 17:46; Status DC Clindamycin Phosphate 50 ml @ As Directed STK-MED ONCE IV ; Start 06/14/19 at 18:07; Stop 06/14/19 at 18:07; Status DC Albumin Human 500 ml @ As Directed STK-MED ONCE IV ; Start 06/14/19 at 18:10; Stop 06/14/19 at 18:11; Status DC Active Scripts Active Reported Foltx Tablet (B12/Levomefolate Calcium/B-6) 1 Each Tablet 1 Each PO AFTRNOON Testosterone Cypionate 200 Mg/1 Ml Vial 1 Ml IM Q2WKS Novolog Mix 70-30 Flexpen Syrn (Insuln Asp Prt/Insulin Aspart) 100 Unit/1 Ml Insuln.pen 1 Unit SQ BIDACBL Lantus Solostar (Insulin Glargine,Hum.rec.anlog) 100 Unit/1 Ml Insuln.pen 30 Unit SQ QHS Nifedipine Er (Nifedipine) 60 Mg Tab.er.24 1 Tab PO DAILY Morphine Sulfate Er (Morphine Sulfate) 60 Mg Tablet.er 1 Tab PO BID Furosemide 40 Mg Tablet 40 Mg PO DAILY Finasteride 5 Mg Tablet 1 Tab PO DAILY Simvastatin 40 Mg Tablet 1 Tab PO QHS Metoprolol Succinate ( Xl ) (Metoprolol Succinate) 200 Mg Tab.er.24h 1 Tab PO DAILY Levothyroxine Sodium 175 Mcg Tablet 1 Tab PO DAILY Losartan-Hctz 100-12.5 Mg Tab (Losartan/Hydrochlorothiazide) 1 Each Tablet 1 Tab PO DAILY Pertinent Labs/Test Laboratory Tests Test 06/12/19 21:18 06/13/19 02:35 06/13/19 07:40 06/13/19 11:01 Glucose (Fingerstick) 124 mg/dL (70-99) 181 mg/dL (70-99) 181 mg/dL (70-99) White Blood Count 20.8 x10^3/uL (4.0-11.0) Red Blood Count 3.67 x10^6/uL (4.30-5.70) Hemoglobin 11.5 g/dL (13.0-17.5) Hematocrit 34.7 % (39.0-53.0) Mean Corpuscular Volume 95 fL (79-100) Mean Corpuscular Hemoglobin 31 pg (25-35) Mean Corpuscular Hemoglobin Concent 33 g/dL (31-37) Red Cell Distribution Width 13.9 % (11.5-14.5) Platelet Count 385 x10^3/uL (140-400) Erythrocyte Sedimentation Rate 43 (0-15) Sodium Level 137 mmol/L (136-145) Potassium Level 4.4 mmol/L (3.5-5.1) Chloride Level 101 mmol/L (98-107) Carbon Dioxide Level 24 mmol/L (21-32) Anion Gap 12 (6-14) Blood Urea Nitrogen 58 mg/dL (8-26) Creatinine 2.3 mg/dL (0.7-1.3) Estimated GFR (Cockcroft-Gault) 27.7 BUN/Creatinine Ratio 25 (6-20) Glucose Level 142 mg/dL (70-99) Calcium Level 8.3 mg/dL (8.5-10.1) Total Bilirubin 0.8 mg/dL (0.2-1.0) Aspartate Amino Transf (AST/SGOT) 13 U/L (15-37) Alanine Aminotransferase (ALT/SGPT) 9 U/L (16-63) Alkaline Phosphatase 135 U/L (46-116) C-Reactive Protein, Quantitative 205.1 mg/L (0-3.3) Total Protein 5.5 g/dL (6.4-8.2) Albumin 1.4 g/dL (3.4-5.0) Albumin/Globulin Ratio 0.3 (1.0-1.7) Test 06/13/19 16:59 06/13/19 21:12 06/14/19 03:40 06/14/19 07:16 Glucose (Fingerstick) 203 mg/dL (70-99) 246 mg/dL (70-99) 249 mg/dL (70-99) White Blood Count 18.7 x10^3/uL (4.0-11.0) Red Blood Count 3.73 x10^6/uL (4.30-5.70) Hemoglobin 12.0 g/dL (13.0-17.5) Hematocrit 35.8 % (39.0-53.0) Mean Corpuscular Volume 96 fL (79-100) Mean Corpuscular Hemoglobin 32 pg (25-35) Mean Corpuscular Hemoglobin Concent 33 g/dL (31-37) Red Cell Distribution Width 14.5 % (11.5-14.5) Platelet Count 446 x10^3/uL (140-400) Sodium Level 136 mmol/L (136-145) Potassium Level 4.4 mmol/L (3.5-5.1) Chloride Level 98 mmol/L (98-107) Carbon Dioxide Level 18 mmol/L (21-32) Anion Gap 20 (6-14) Blood Urea Nitrogen 86 mg/dL (8-26) Creatinine 3.6 mg/dL (0.7-1.3) Estimated GFR (Cockcroft-Gault) 16.5 BUN/Creatinine Ratio 24 (6-20) Glucose Level 243 mg/dL (70-99) Calcium Level 7.7 mg/dL (8.5-10.1) Magnesium Level 2.2 mg/dL (1.8-2.4) Total Bilirubin 0.9 mg/dL (0.2-1.0) Aspartate Amino Transf (AST/SGOT) 24 U/L (15-37) Alanine Aminotransferase (ALT/SGPT) 16 U/L (16-63) Alkaline Phosphatase 274 U/L (46-116) Total Protein 5.3 g/dL (6.4-8.2) Albumin 1.2 g/dL (3.4-5.0) Albumin/Globulin Ratio 0.3 (1.0-1.7) Triglycerides Level 63 mg/dL (0-150) Cholesterol Level < 50 mg/dL (0-200) LDL Cholesterol, Calculated 26 mg/dL (0-100) VLDL Cholesterol, Calculated 13 mg/dL (0-40) Non-HDL Cholesterol Calculated 39 mg/dL (0-129) HDL Cholesterol 11 mg/dL (40-60) Cholesterol/HDL Ratio Test 06/14/19 11:54 06/14/19 16:00 Glucose (Fingerstick) 251 mg/dL (70-99) Prothrombin Time 17.3 SEC (11.7-14.0) Prothromb Time International Ratio 1.4 (0.8-1.1) O2 Saturation 91 % (92-99) Arterial Blood pH 7.34 (7.35-7.45) Arterial Blood pCO2 at Patient Temp 25 mmHg (35-46) Arterial Blood pO2 at Patient Temp 68 mmHg (65-108) Arterial Blood HCO3 13 mmol/L (21-28) Arterial Blood Base Excess -11 mmol/L (-3-3) FiO2 21 Laboratory Tests Test 06/13/19 21:12 06/14/19 03:40 06/14/19 07:16 06/14/19 11:54 Glucose (Fingerstick) 246 mg/dL (70-99) 249 mg/dL (70-99) 251 mg/dL (70-99) White Blood Count 18.7 x10^3/uL (4.0-11.0) Red Blood Count 3.73 x10^6/uL (4.30-5.70) Hemoglobin 12.0 g/dL (13.0-17.5) Hematocrit 35.8 % (39.0-53.0) Mean Corpuscular Volume 96 fL (79-100) Mean Corpuscular Hemoglobin 32 pg (25-35) Mean Corpuscular Hemoglobin Concent 33 g/dL (31-37) Red Cell Distribution Width 14.5 % (11.5-14.5) Platelet Count 446 x10^3/uL (140-400) Sodium Level 136 mmol/L (136-145) Potassium Level 4.4 mmol/L (3.5-5.1) Chloride Level 98 mmol/L (98-107) Carbon Dioxide Level 18 mmol/L (21-32) Anion Gap 20 (6-14) Blood Urea Nitrogen 86 mg/dL (8-26) Creatinine 3.6 mg/dL (0.7-1.3) Estimated GFR (Cockcroft-Gault) 16.5 BUN/Creatinine Ratio 24 (6-20) Glucose Level 243 mg/dL (70-99) Calcium Level 7.7 mg/dL (8.5-10.1) Magnesium Level 2.2 mg/dL (1.8-2.4) Total Bilirubin 0.9 mg/dL (0.2-1.0) Aspartate Amino Transf (AST/SGOT) 24 U/L (15-37) Alanine Aminotransferase (ALT/SGPT) 16 U/L (16-63) Alkaline Phosphatase 274 U/L (46-116) Total Protein 5.3 g/dL (6.4-8.2) Albumin 1.2 g/dL (3.4-5.0) Albumin/Globulin Ratio 0.3 (1.0-1.7) Triglycerides Level 63 mg/dL (0-150) Cholesterol Level < 50 mg/dL (0-200) LDL Cholesterol, Calculated 26 mg/dL (0-100) VLDL Cholesterol, Calculated 13 mg/dL (0-40) Non-HDL Cholesterol Calculated 39 mg/dL (0-129) HDL Cholesterol 11 mg/dL (40-60) Cholesterol/HDL Ratio Test 06/14/19 16:00 Prothrombin Time 17.3 SEC (11.7-14.0) Prothromb Time International Ratio 1.4 (0.8-1.1) O2 Saturation 91 % (92-99) Arterial Blood pH 7.34 (7.35-7.45) Arterial Blood pCO2 at Patient Temp 25 mmHg (35-46) Arterial Blood pO2 at Patient Temp 68 mmHg (65-108) Arterial Blood HCO3 13 mmol/L (21-28) Arterial Blood Base Excess -11 mmol/L (-3-3) FiO2 21 LAST VITALS Vital Signs Date Time Temp Pulse Resp B/P (MAP) Pulse Ox O2 Delivery O2 Flow Rate FiO2 06/14/19 14:00 Room Air 06/14/19 12:39 20 96 06/14/19 11:54 77 91/32 (51) 06/14/19 11:00 98.4 98.4 06/14/19 04:32 2.0 BENITEZ MATOS MD Jun 14, 2019 19:02
[2019-06-14] MEDS ORDERED: ePHEDrine PF IN SALINE 50 MG/10 ML SYRINGE. IV ONE (19:21)
--- NOTE | 2019-06-14 19:25 | PDOC ---
BRIEF OPERATIVE NOTE Date: Jun 14, 2019 Pre-Op Diagnosis Periprosthetic abscess left shoulder joint, infected total shoulder arthroplasty Post-Op Diagnosis Periprosthetic abscess left shoulder joint, infected total shoulder arthroplasty Procedure Performed Left shoulder open incision and drainage with arthrotomy, debridement of bone and bone cement, and joint irrigation Surgeon Lyssa Anesthesiologist Roberta Anesthesia Type: General Blood Loss 100 mL Specimens Obtained Left shoulder abscess fluid in specimen cup for aerobe, anaerobe, fungal, AFB Findings High volume of pus under pressure: purulent shoulder joint, 400 mL of pus, yellowish color, no apparent odor. The implants seemed stable to palpation and finger traction without gross loosening. 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 I used rongeurs for debridement of nonviable deep tissue/abscess remnants, including small amounts of bone at the upper humerus, and a small amount of bone cement. Complications None Operative Note to follow BRITT TANG MD Jun 14, 2019 19:25
[2019-06-14 19:47] LABS: BASE EXCESS ABG -13 mmol/L (-3-3); HCO3 ABG 13 mmol/L (21-28); PCO2 ABG 31 mmHg (35-46); PO2 ABG 95 mmHg (65-108); SAT O2 ABG 95 % (92-99)
--- NOTE | 2019-06-14 20:11 | PDOC ---
Date and Time Left EJ CVP in SVC. No pneumothorax, lung barrett clear. ABG continues to show severe metabolic acidosis 7.. Pulm to manage vent going forward Current Medications Current Medications Pantoprazole Sodium (PROTONIX VIAL for IV PUSH) 40 mg BID IVP Last administered on 06/11/19at 09:22; Start 06/07/19 at 21:00; Stop 06/11/19 at 12:41; Status DC Sodium Chloride 1,000 ml @ 75 mls/hr [id number] IV Last administered on 06/09/19at 11:36; Start 06/07/19 at 16:30; Stop 06/09/19 at 12:08; Status DC Bisacodyl (Dulcolax Supp) 10 mg 1X ONCE CO Last administered on 06/07/19at 21:40; Start 06/07/19 at 17:45; Stop 06/07/19 at 17:46; Status DC Hydromorphone HCl (Dilaudid) 1 mg PRN Q4HRS PRN IVP PAIN Last administered on 06/07/19at 18:04; Start 06/07/19 at 17:45; Stop 06/07/19 at 21:48; Status DC Lorazepam (Ativan) 0.5 mg PRN Q6HRS PRN PO ANXIETY / AGITATION; Start 06/07/19 at 18:00; Stop 06/07/19 at 18:14; Status DC Nicotine (Nicoderm Cq 21mg) 1 patch PRN DAILY PRN TD SMOKING CESSATION; Start 06/07/19 at 18:00; Stop 06/07/19 at 18:14; Status DC Hydromorphone HCl (Dilaudid) 2 mg PRN Q3HRS PRN IV PAIN Last administered on 06/14/19at 12:39; Start 06/07/19 at 22:00 Ringer's Solution 1,000 ml @ 75 mls/hr [id number] IV Last administered on 06/08/19at 14:01; Start 06/08/19 at 09:15; Stop 06/09/19 at 08:01; Status DC Propofol 20 ml @ As Directed STK-MED ONCE IV ; Start 06/08/19 at 10:20; Stop 06/08/19 at 10:20; Status DC Lidocaine HCl (Lidocaine Pf 2% Vial) 5 ml STK-MED ONCE .ROUTE ; Start 06/08/19 at 10:20; Stop 06/08/19 at 10:20; Status DC Finasteride (Proscar) 5 mg DAILY PO Last administered on 06/12/19 08:36; Start 06/08/19 at 12:00 Furosemide (Lasix) 40 mg DAILY PO Last administered on 06/12/19 08:36; Start 06/08/19 at 12:00; Stop 06/14/19 at 13:01; Status DC Levothyroxine Sodium (Synthroid) 175 mcg DAILY06 PO Last administered on 06/13/19 06:18; Start 06/08/19 at 12:00 Simvastatin (Zocor) 40 mg QHS PO Last administered on 06/12/19 21:26; Start 06/08/19 at 21:00 Testosterone Cypionate (Depo-Testosterone) 200 mg Q2WKS IM ; Start 06/22/19 at 09:00 Vitamin B Complex (Bud B) 1 tab DAILY PO Last administered on 06/12/19 08:36; Start 06/08/19 at 12:00 Insulin Glargine (Lantus Syringe) 30 unit QHS SQ Last administered on 06/13/19 22:26; Start 06/08/19 at 21:00 Non-Formulary Medication (Insuln Asp Prt/ Insulin Aspart (Novolog Mix 70-30 Flexpen Syrn)) 1 unit BIDACBL SQ ; Start 06/08/19 at 11:30; Stop 06/08/19 at 19:34; Status DC Losartan Potassium (Cozaar) 100 mg DAILY PO Last administered on 06/12/19 08:36; Start 06/08/19 at 12:00; Stop 06/14/19 at 13:01; Status DC Metoprolol Succinate (Toprol Xl) 200 mg DAILY PO Last administered on 06/12/19 08:36; Start 06/08/19 at 12:00; Stop 06/14/19 at 13:01; Status DC Morphine Sulfate (Ms Contin) 60 mg BID PO Last administered on 06/12/19 21:26; Start 06/08/19 at 12:00 Nifedipine (Procardia Xl) 60 mg DAILY PO Last administered on 06/12/19 08:36; Start 06/08/19 at 12:00; Stop 06/14/19 at 13:01; Status DC Insulin Human Lispro (HumaLOG) 0-5 UNITS TIDWMEALS SQ Last administered on 06/09/19at 11:36; Start 06/08/19 at 17:00; Stop 06/09/19 at 11:38; Status DC Dextrose (Dextrose 50%-Water Syringe) 12.5 gm PRN Q15MIN PRN IV SEE COMMENTS; Start 06/08/19 at 15:30; Stop 06/09/19 at 15:19; Status DC Dextrose 250 ml PRN Q15MIN PRN IV SEE COMMENTS; Start 06/08/19 at 15:30; Stop 06/09/19 at 15:19; Status DC Insulin Human Lispro (HumaLOG) 0-9 UNITS TIDWMEALS SQ Last administered on 06/14/19at 12:39; Start 06/09/19 at 12:00 Dextrose (Dextrose 50%-Water Syringe) 12.5 gm PRN Q15MIN PRN IV SEE COMMENTS; Start 06/09/19 at 11:45 Dextrose 250 ml PRN Q15MIN PRN IV SEE COMMENTS; Start 06/09/19 at 11:45; Stop 06/09/19 at 15:19; Status DC Pantoprazole Sodium (Protonix) 40 mg DAILYAC PO Last administered on 06/12/19at 08:36; Start 06/12/19 at 07:30; Stop 06/13/19 at 13:27; Status DC Polyethylene Glycol (miraLAX PACKET) 17 gm DAILY PO ; Start 06/12/19 at 09:00; Stop 06/12/19 at 12:28; Status DC Polyethylene Glycol (miraLAX PACKET) 17 gm PRN DAILY PRN PO CONSTIPATION, 1ST CHOICE; Start 06/11/19 at 15:45 Bisacodyl (Dulcolax Tab) 5 mg PRN DAILY PRN PO CONSTIPATION, 2ND CHOICE; Start 06/11/19 at 15:45 Tamsulosin HCl (Flomax) 0.4 mg QHS PO Last administered on 06/12/19at 21:26; Start 06/12/19 at 21:00; Stop 06/14/19 at 13:01; Status DC Finasteride (Proscar) 5 mg DAILY PO ; Start 06/12/19 at 12:00; Stop 06/13/19 at 09:39; Status DC Sodium Chloride 500 ml @ 500 mls/hr 1X ONCE IV Last administered on 06/13/19 12:45; Start 06/13/19 at 10:00; Stop 06/13/19 at 10:59; Status DC Ondansetron HCl (Zofran) 4 mg PRN Q6HRS PRN IV NAUSEA/VOMITING; Start 06/13/19 at 09:45; Status UNV Sodium Chloride 1,000 ml @ 125 mls/hr Q8H IV Last administered on 06/14/19 08:48; Start 06/13/19 at 11:00 Ondansetron HCl (Zofran) 4 mg PRN Q4HRS PRN IV NAUSEA/VOMITING Last administered on 06/13/19at 22:15; Start 06/13/19 at 09:45 Ondansetron HCl (Zofran) 4 mg STK-MED ONCE .ROUTE ; Start 06/13/19 at 09:39; Stop 06/13/19 at 09:40; Status DC Daptomycin 560 mg/ Sodium Chloride 50 ml @ 100 mls/hr Q24H IV Last administered on 06/13/19 16:04; Start 06/13/19 at 14:00; Stop 06/14/19 at 11:15; Status DC Meropenem 1 gm/ Sodium Chloride 100 ml @ 200 mls/hr Q12HR IV Last administered on 06/14/19 08:48; Start 06/13/19 at 15:00 Pantoprazole Sodium (PROTONIX VIAL for IV PUSH) 40 mg DAILYAC IVP Last administered on 06/14/19 08:48; Start 06/14/19 at 07:30 Lidocaine/Sodium Bicarbonate (Buffered Lidocaine 1%) 3 ml STK-MED ONCE .ROUTE ; Start 06/13/19 at 13:59; Stop 06/13/19 at 14:00; Status DC Lidocaine/Sodium Bicarbonate (Buffered Lidocaine 1%) 3 ml 1X ONCE IJ Last administered on 06/13/19at 14:39; Start 06/13/19 at 14:30; Stop 06/13/19 at 14:32; Status DC Amino Acids/ Electrolytes/ Dextrose 1,000 ml @ 80 mls/hr [id number] IV ; Start 06/14/19 at 10:30 Daptomycin 560 mg/ Sodium Chloride 50 ml @ 100 mls/hr Q48H IV ; Start 06/15/19 at 14:00 Sodium Chloride 500 ml @ 500 mls/hr 1X ONCE IV Last administered on 06/14/19at 11:54; Start 06/14/19 at 11:45; Stop 06/14/19 at 12:44; Status DC Sodium Chloride 500 ml @ 500 mls/hr 1X ONCE IV Last administered on 06/14/19at 12:25; Start 06/14/19 at 11:45; Stop 06/14/19 at 12:44; Status DC Methylnaltrexone Billings (Relistor) 6 mg 1X ONCE SQ Last administered on 05/18 07/05at 14:15; Start 06/14/19 at 14:00; Stop 06/14/19 at 14:01; Status DC Norepinephrine Bitartrate 250 ml @ 17.398 mls/ hr CONT PRN IV SEE I/O RECORD Last administered on 06/14/19at 14:35; Start 06/14/19 at 14:30 Propofol 20 ml @ As Directed STK-MED ONCE IV ; Start 06/14/19 at 16:17; Stop 06/14/19 at 16:17; Status DC Dexamethasone Sodium Phosphate (Decadron) 4 mg STK-MED ONCE .ROUTE ; Start 06/14/19 at 16:17; Stop 06/14/19 at 16:17; Status DC Famotidine (Pepcid Vial) 20 mg STK-MED ONCE .ROUTE ; Start 06/14/19 at 16:17; Stop 06/14/19 at 16:17; Status DC Lidocaine HCl (Lidocaine Pf 2% Vial) 5 ml STK-MED ONCE .ROUTE ; Start 06/14/19 at 16:17; Stop 06/14/19 at 16:17; Status DC Ondansetron HCl (Zofran) 4 mg STK-MED ONCE .ROUTE ; Start 06/14/19 at 16:17; St op 06/14/19 at 16:17; Status DC Succinylcholine Chloride (Anectine) 200 mg STK-MED ONCE .ROUTE ; Start 06/14/19 at 16:17; Stop 06/14/19 at 16:17; Status DC Fentanyl Citrate (Fentanyl 2ml Vial) 100 mcg STK-MED ONCE .ROUTE ; Start 06/14/19 at 16:17; Stop 06/14/19 at 16:17; Status DC Rocuronium Billings (Zemuron) 50 mg STK-MED ONCE .ROUTE ; Start 06/14/19 at 16:32; Stop 06/14/19 at 16:32; Status DC Ketamine HCl (Ketamine) 50 mg STK-MED ONCE .ROUTE ; Start 06/14/19 at 17:03; Stop 06/14/19 at 17:03; Status DC Phenylephrine HCl (PHENYLEPHRINE in 0.9% NACL PF) 1 mg STK-MED ONCE IV ; Start 06/14/19 at 17:03; Stop 06/14/19 at 17:04; Status DC Bupivacaine HCl/ Epinephrine Bitart (Sensorcaine-Epi 0.25%-1:[id number] Mpf) 30 ml 1X ONCE INJ ; Start 06/14/19 at 17:45; Stop 06/14/19 at 17:46; Status DC Clindamycin Phosphate 50 ml @ As Directed STK-MED ONCE IV ; Start 06/14/19 at 18:07; Stop 06/14/19 at 18:07; Status DC Albumin Human 500 ml @ As Directed STK-MED ONCE IV ; Start 06/14/19 at 18:10; Stop 06/14/19 at 18:11; Status DC Albumin Human 500 ml @ 125 mls/hr 1X ONCE IV Last administered on 06/14/19at 20:00; Start 06/14/19 at 20:00; Stop 06/14/19 at 23:59 Fentanyl Citrate 30 ml @ 0 mls/hr CONT PRN IV SEE PROTOCOL Last administered on 06/14/19at 20:00; Start 06/14/19 at 20:00 Propofol 100 ml @ 0 mls/hr CONT PRN IV SEE PROTOCOL; Start 06/14/19 at 20:00 Ephedrine Sulfate (ePHEDrine PF IN SALINE SYRINGE) 50 mg STK-MED ONCE IV ; Start 06/14/19 at 19:21; Stop 06/14/19 at 19:21; Status DC Active Scripts Active Reported Foltx Tablet (B12/Levomefolate Calcium/B-6) 1 Each Tablet 1 Each PO AFTRNOON Testosterone Cypionate 200 Mg/1 Ml Vial 1 Ml IM Q2WKS Novolog Mix 70-30 Flexpen Syrn (Insuln Asp Prt/Insulin Aspart) 100 Unit/1 Ml Insuln.pen 1 Unit SQ BIDACBL Lantus Solostar (Insulin Glargine,Hum.rec.anlog) 100 Unit/1 Ml Insuln.pen 30 Unit SQ QHS Nifedipine Er (Nifedipine) 60 Mg Tab.er.24 1 Tab PO DAILY Morphine Sulfate Er (Morphine Sulfate) 60 Mg Tablet.er 1 Tab PO BID Furosemide 40 Mg Tablet 40 Mg PO DAILY Finasteride 5 Mg Tablet 1 Tab PO DAILY Simvastatin 40 Mg Tablet 1 Tab PO QHS Metoprolol Succinate ( Xl ) (Metoprolol Succinate) 200 Mg Tab.er.24h 1 Tab PO DAILY Levothyroxine Sodium 175 Mcg Tablet 1 Tab PO DAILY Losartan-Hctz 100-12.5 Mg Tab (Losartan/Hydrochlorothiazide) 1 Each Tablet 1 Tab PO DAILY Pertinent Labs/Test Laboratory Tests Test 06/12/19 21:18 06/13/19 02:35 06/13/19 07:40 06/13/19 11:01 Glucose (Fingerstick) 124 mg/dL (70-99) 181 mg/dL (70-99) 181 mg/dL (70-99) White Blood Count 20.8 x10^3/uL (4.0-11.0) Red Blood Count 3.67 x10^6/uL (4.30-5.70) Hemoglobin 11.5 g/dL (13.0-17.5) Hematocrit 34.7 % (39.0-53.0) Mean Corpuscular Volume 95 fL (79-100) Mean Corpuscular Hemoglobin 31 pg (25-35) Mean Corpuscular Hemoglobin Concent 33 g/dL (31-37) Red Cell Distribution Width 13.9 % (11.5-14.5) Platelet Count 385 x10^3/uL (140-400) Erythrocyte Sedimentation Rate 43 (0-15) Sodium Level 137 mmol/L (136-145) Potassium Level 4.4 mmol/L (3.5-5.1) Chloride Level 101 mmol/L (98-107) Carbon Dioxide Level 24 mmol/L (21-32) Anion Gap 12 (6-14) Blood Urea Nitrogen 58 mg/dL (8-26) Creatinine 2.3 mg/dL (0.7-1.3) Estimated GFR (Cockcroft-Gault) 27.7 BUN/Creatinine Ratio 25 (6-20) Glucose Level 142 mg/dL (70-99) Calcium Level 8.3 mg/dL (8.5-10.1) Total Bilirubin 0.8 mg/dL (0.2-1.0) Aspartate Amino Transf (AST/SGOT) 13 U/L (15-37) Alanine Aminotransferase (ALT/SGPT) 9 U/L (16-63) Alkaline Phosphatase 135 U/L (46-116) C-Reactive Protein, Quantitative 205.1 mg/L (0-3.3) Total Protein 5.5 g/dL (6.4-8.2) Albumin 1.4 g/dL (3.4-5.0) Albumin/Globulin Ratio 0.3 (1.0-1.7) Test 06/13/19 16:59 06/13/19 21:12 06/14/19 03:40 06/14/19 07:16 Glucose (Fingerstick) 203 mg/dL (70-99) 246 mg/dL (70-99) 249 mg/dL (70-99) White Blood Count 18.7 x10^3/uL (4.0-11.0) Red Blood Count 3.73 x10^6/uL (4.30-5.70) Hemoglobin 12.0 g/dL (13.0-17.5) Hematocrit 35.8 % (39.0-53.0) Mean Corpuscular Volume 96 fL (79-100) Mean Corpuscular Hemoglobin 32 pg (25-35) Mean Corpuscular Hemoglobin Concent 33 g/dL (31-37) Red Cell Distribution Width 14.5 % (11.5-14.5) Platelet Count 446 x10^3/uL (140-400) Sodium Level 136 mmol/L (136-145) Potassium Level 4.4 mmol/L (3.5-5.1) Chloride Level 98 mmol/L (98-107) Carbon Dioxide Level 18 mmol/L (21-32) Anion Gap 20 (6-14) Blood Urea Nitrogen 86 mg/dL (8-26) Creatinine 3.6 mg/dL (0.7-1.3) Estimated GFR (Cockcroft-Gault) 16.5 BUN/Creatinine Ratio 24 (6-20) Glucose Level 243 mg/dL (70-99) Calcium Level 7.7 mg/dL (8.5-10.1) Magnesium Level 2.2 mg/dL (1.8-2.4) Total Bilirubin 0.9 mg/dL (0.2-1.0) Aspartate Amino Transf (AST/SGOT) 24 U/L (15-37) Alanine Aminotransferase (ALT/SGPT) 16 U/L (16-63) Alkaline Phosphatase 274 U/L (46-116) Total Protein 5.3 g/dL (6.4-8.2) Albumin 1.2 g/dL (3.4-5.0) Albumin/Globulin Ratio 0.3 (1.0-1.7) Triglycerides Level 63 mg/dL (0-150) Cholesterol Level < 50 mg/dL (0-200) LDL Cholesterol, Calculated 26 mg/dL (0-100) VLDL Cholesterol, Calculated 13 mg/dL (0-40) Non-HDL Cholesterol Calculated 39 mg/dL (0-129) HDL Cholesterol 11 mg/dL (40-60) Cholesterol/HDL Ratio Test 06/14/19 11:54 06/14/19 16:00 Glucose (Fingerstick) 251 mg/dL (70-99) Prothrombin Time 17.3 SEC (11.7-14.0) Prothromb Time International Ratio 1.4 (0.8-1.1) O2 Saturation 91 % (92-99) Arterial Blood pH 7.34 (7.35-7.45) Arterial Blood pCO2 at Patient Temp 25 mmHg (35-46) Arterial Blood pO2 at Patient Temp 68 mmHg (65-108) Arterial Blood HCO3 13 mmol/L (21-28) Arterial Blood Base Excess -11 mmol/L (-3-3) FiO2 21 Laboratory Tests Test 06/13/19 21:12 06/14/19 03:40 06/14/19 07:16 06/14/19 11:54 Glucose (Fingerstick) 246 mg/dL (70-99) 249 mg/dL (70-99) 251 mg/dL (70-99) White Blood Count 18.7 x10^3/uL (4.0-11.0) Red Blood Count 3.73 x10^6/uL (4.30-5.70) Hemoglobin 12.0 g/dL (13.0-17.5) Hematocrit 35.8 % (39.0-53.0) Mean Corpuscular Volume 96 fL (79-100) Mean Corpuscular Hemoglobin 32 pg (25-35) Mean Corpuscular Hemoglobin Concent 33 g/dL (31-37) Red Cell Distribution Width 14.5 % (11.5-14.5) Platelet Count 446 x10^3/uL (140-400) Sodium Level 136 mmol/L (136-145) Potassium Level 4.4 mmol/L (3.5-5.1) Chloride Level 98 mmol/L (98-107) Carbon Dioxide Level 18 mmol/L (21-32) Anion Gap 20 (6-14) Blood Urea Nitrogen 86 mg/dL (8-26) Creatinine 3.6 mg/dL (0.7-1.3) Estimated GFR (Cockcroft-Gault) 16.5 BUN/Creatinine Ratio 24 (6-20) Glucose Level 243 mg/dL (70-99) Calcium Level 7.7 mg/dL (8.5-10.1) Magnesium Level 2.2 mg/dL (1.8-2.4) Total Bilirubin 0.9 mg/dL (0.2-1.0) Aspartate Amino Transf (AST/SGOT) 24 U/L (15-37) Alanine Aminotransferase (ALT/SGPT) 16 U/L (16-63) Alkaline Phosphatase 274 U/L (46-116) Total Protein 5.3 g/dL (6.4-8.2) Albumin 1.2 g/dL (3.4-5.0) Albumin/Globulin Ratio 0.3 (1.0-1.7) Triglycerides Level 63 mg/dL (0-150) Cholesterol Level < 50 mg/dL (0-200) LDL Cholesterol, Calculated 26 mg/dL (0-100) VLDL Cholesterol, Calculated 13 mg/dL (0-40) Non-HDL Cholesterol Calculated 39 mg/dL (0-129) HDL Cholesterol 11 mg/dL (40-60) Cholesterol/HDL Ratio Test 06/14/19 16:00 Prothrombin Time 17.3 SEC (11.7-14.0) Prothromb Time International Ratio 1.4 (0.8-1.1) O2 Saturation 91 % (92-99) Arterial Blood pH 7.34 (7.35-7.45) Arterial Blood pCO2 at Patient Temp 25 mmHg (35-46) Arterial Blood pO2 at Patient Temp 68 mmHg (65-108) Arterial Blood HCO3 13 mmol/L (21-28) Arterial Blood Base Excess -11 mmol/L (-3-3) FiO2 21 LAST VITALS Vital Signs Date Time Temp Pulse Resp B/P (MAP) Pulse Ox O2 Delivery O2 Flow Rate FiO2 06/14/19 20:00 99 Room Air 2.0 06/14/19 19:55 96 16 136/48 06/14/19 19:10 98.5 98.5 BENITEZ MATOS MD Jun 14, 2019 20:11
[2019-06-14] MEDS: PROPOFOL 100 ML IV PRN (20:13)
--- NOTE | 2019-06-14 20:15 | NUR ---
Patient's ABG results after transfer to ICU, pH 7.25, pCO2 30.6, pO2 95.1, HCO3 13.1, BE -12.8; Dr Granados paged. Dr Granados returned paged notified of ABG results and portable CXR completed. Orders receive to notify Dr Benton of ABG results and further orders for vent management. Notified patient's RN, Teddy.
--- NOTE | 2019-06-14 20:30 | NUR ---
Pt returned from surgery and put on ventilator. This RN called Dr. Benton and updated him on pt status/ condition. Current ABG results and vitals acknowledged, sedation and medications running also acknowledged. Order received to decrease A/C rate to 14 from 16. Also order received for morning ABG and Chest X-Ray. Will continue to assess and monitor.
[2019-06-14] MEDS: SIMVASTATIN 40 MG TABLET. PO SCH (21:00)
[2019-06-14 21:10] LABS: FIO2 ABG 50
--- NOTE | 2019-06-14 22:10 | NUR ---
Pt produced 20mL's of tea colored urine over course of [address] Dooley paged. Dr. Dooley returned page. Provider updated on pt's status and condition. Provider aware of current vitals and blood pressure drip pt is on. Provider aware of ABG's and current maintenance fluid. Provider notified of pulmonologists interventions. Order received for Maintenance Fluids to be switched from 0.9 NS to 0.45 NS with one amp of Bicarb added still running at 125 mL's per hour. Will continue to assess and monitor pt.
[2019-06-14] MEDS ORDERED: SODIUM BICARBONATE VIAL 50 MEQ in IV 1/2 NORMAL SALINE 1,000 ML IV ONE (23:00)
[2019-06-14] MEDS: AA 4.25 %/CALCIUM/LYTES/D5W 1,000 ML IV SCH (23:06)
--- NOTE | 2019-06-14 23:18 | RAD ---
PORTABLE CHEST 1V History: Postop, ventilator Comparison: June 11, 2019 Findings: Single view of the chest is submitted. There is now enteric catheter coursing into the stomach, endotracheal tube with tip about 2.5 cm from bandar, and left venous catheter with the tip near the midline which may be at the orifice of the left brachiocephalic vein assuming there is appropriate venous return. There are again fractures of 2 most superior mediastinal wires. Cardiac silhouette is similar. There is somewhat tortuous thoracic aorta. There is left shoulder arthroplasty. There is no significant pneumothorax or dependent pleural fluid. There is some residual airspace opacity at the right lung base possibly atelectasis. Impression: 1. There are now support catheters and tubes as stated. There is residual right base opacity, possibly atelectasis. Electronically signed by: Ilya Chan MD (06/14/2019 11:14 PM) [facility]
[2019-06-15] VITALS (24 sets, daily range): BP systolic 80–178; BP diastolic 32–74
[2019-06-15] MEDS: INSULIN GLARGINE SYRINGE. SQ SCH ×2 (01:04→21:24)
[2019-06-15] MEDS: INSULIN LISPRO 300 UNITS/3 ML VIAL. SQ SCH ×4 (01:04→16:22)
[2019-06-15] MEDS: NOREPINEPHRIN 8MG/250ML PREMIX 250 ML IV PRN ×3 (06:00→20:51)
[2019-06-15 06:30] LABS: BASO % 0 % (0-3); EOS % 0 % (0-3); HEMATOCRIT 33.1 % (39.0-53.0); LYMPH # 1.1 x10^3/uL (1.0-4.8); LYMPH % 5 % (24-48); MEAN CORPUSCULAR HEMOGLOBIN 32 pg (25-35); MEAN CORPUSCULAR HGB CONC 33 g/dL (31-37); MEAN CORPUSCULAR VOLUME 95 fL (79-100); MONO # 0.7 x10^3/uL (0.0-1.1); MONO % 3 % (0-9); NEUT # 19.6 x10^3/uL (1.8-7.7); NEUT % 91 % (31-73); PLATELET COUNT 316 x10^3/uL (140-400); RED BLOOD COUNT 3.49 x10^6/uL (4.30-5.70); RED CELL DISTRIBUTION WIDTH 14.5 % (11.5-14.5); WHITE BLOOD COUNT 21.5 x10^3/uL (4.0-11.0)
[2019-06-15 06:39] LABS: MAGNESIUM 2.4 mg/dL (1.8-2.4); PHOSPHORUS 8.6 mg/dL (2.6-4.7)
[2019-06-15] MEDS: PANTOPRAZOLE IV PUSH 40 MG VIAL. IVP SCH (07:34)
[2019-06-15] MEDS: LEVOTHYROXINE 175 MCG TABLET PO SCH (07:34)
[2019-06-15] MEDS: MEROPENEM 1 GM in IV NORMAL SALINE 100ML 100 ML IV SCH ×3 (07:34→13:54)
[2019-06-15] MEDS: MORPHINE ER 30 MG TABLET.ER PO SCH ×2 (07:34→21:00)
[2019-06-15] MEDS: FINASTERIDE 5 MG TABLET. PO SCH (07:34)
[2019-06-15] MEDS: IV 1/2 NORMAL SALINE 1,000 ML IV SCH ×3 (07:35→22:00)
[2019-06-15] MEDS: VITAMIN B COMPLEX TABLET. PO SCH (07:35)
[2019-06-15 07:38] LABS: % BANDS 50 % (0-9); % LYMPHS 6 % (24-48); % METAS 15 % (0-0); % MONOS 2 % (0-10); % MYELOS 7 % (0-0); % SEGS 20 % (35-66); NUCLEATED RBC 1; PLT ESTIMATE ADEQUATE (ADEQUATE)
--- NOTE | 2019-06-15 07:39 | PDOC ---
Infectious Disease Note Subjective Subjective Intubated/sedated some ROS ROS unable to obtain Vital Sign Vital Signs Vital Signs Date Time Temp Pulse Resp B/P (MAP) Pulse Ox O2 Delivery O2 Flow Rate FiO2 06/15/19 05:57 16 98 Ventilator 06/15/19 05:00 92 112/52 (72) 06/15/19 04:00 98.7 98.7 06/14/19 20:00 2.0 Physical Exam PHYSICAL EXAM CONSTITUTIONAL: He is lying in bed. He is intubated. in no acute distress. HEENT: Pupils are equal and reactive. Normal conjunctivae. Oral cavity - OGT/ETT NECK: Supple, no JVD. LUNGS: Clear to auscultation. HEART: S1, S2. ABDOMEN: Obese, soft and nontender.NGT. mild distension - Rectal tube : Woodson EXTREMITIES: No clubbing or cyanosis with some trace lower extremity edema. He has a right hand deformity. His left shoulder is dressed. 2 plus edema SKIN: Without signs of any generalized rash. NEUROLOGIC: He is nonfocal. PSYCHIATRIC: lightly sedated Labs Lab Laboratory Tests Test 06/14/19 11:54 06/14/19 16:00 06/14/19 19:15 06/15/19 00:43 Glucose (Fingerstick) 251 mg/dL (70-99) 202 mg/dL (70-99) Prothrombin Time 17.3 SEC (11.7-14.0) Prothromb Time International Ratio 1.4 (0.8-1.1) O2 Saturation 91 % (92-99) 95 % (92-99) Arterial Blood pH 7.34 (7.35-7.45) 7.25 (7.35-7.45) Arterial Blood pCO2 at Patient Temp 25 mmHg (35-46) 31 mmHg (35-46) Arterial Blood pO2 at Patient Temp 68 mmHg (65-108) 95 mmHg (65-108) Arterial Blood HCO3 13 mmol/L (21-28) 13 mmol/L (21-28) Arterial Blood Base Excess -11 mmol/L (-3-3) -13 mmol/L (-3-3) FiO2 21 50 Test 06/15/19 06:10 White Blood Count 21.5 x10^3/uL (4.0-11.0) Red Blood Count 3.49 x10^6/uL (4.30-5.70) Hemoglobin 11.0 g/dL (13.0-17.5) Hematocrit 33.1 % (39.0-53.0) Mean Corpuscular Volume 95 fL (79-100) Mean Corpuscular Hemoglobin 32 pg (25-35) Mean Corpuscular Hemoglobin Concent 33 g/dL (31-37) Red Cell Distribution Width 14.5 % (11.5-14.5) Platelet Count 316 x10^3/uL (140-400) Neutrophils (%) (Auto) 91 % (31-73) Lymphocytes (%) (Auto) 5 % (24-48) Monocytes (%) (Auto) 3 % (0-9) Eosinophils (%) (Auto) 0 % (0-3) Basophils (%) (Auto) 0 % (0-3) Neutrophils # (Auto) 19.6 x10^3/uL (1.8-7.7) Lymphocytes # (Auto) 1.1 x10^3/uL (1.0-4.8) Monocytes # (Auto) 0.7 x10^3/uL (0.0-1.1) Eosinophils # (Auto) 0.0 x10^3/uL (0.0-0.7) Basophils # (Auto) 0.0 x10^3/uL (0.0-0.2) Sodium Level 136 mmol/L (136-145) Potassium Level 4.6 mmol/L (3.5-5.1) Chloride Level 104 mmol/L (98-107) Carbon Dioxide Level 17 mmol/L (21-32) Anion Gap 15 (6-14) Blood Urea Nitrogen 108 mg/dL (8-26) Creatinine 4.2 mg/dL (0.7-1.3) Estimated GFR (Cockcroft-Gault) 13.8 Glucose Level 216 mg/dL (70-99) Calcium Level 6.7 mg/dL (8.5-10.1) Phosphorus Level 8.6 mg/dL (2.6-4.7) Magnesium Level 2.4 mg/dL (1.8-2.4) Micro CT Left UE 06/12 Impression: Large collection is noted anterior to the left humerus and about the left shoulder extending posteriorly and into the lateral deltoid region. Gas noted within. Findings of concern for abscess. Correlate for underlying hematoma. Correlate with intervention. Curvilinear density noted involving the left upper lung field. Correlate with prior exams if available to assess stability. Correlate with risk factors for lung carcinoma in determining further evaluation with PET CT exam. If no significant risk factors are present, interval follow-up chest CT in 3 months may be considered to assess stability. CT abd/pel 06/13 Impression: Circumferential wall thickening of the distal ascending colon and rectum. Subtle surrounding stranding. Correlate for possibility of mild colitis. Minimal ascites. Distention of the colon and epigastric small bowel. Findings raise question of [place] syndrome. Colonic ileus alternatively is questioned. No definite transition point to suggest obstruction although marked circumferential wall thickening of the distal rectum with associated luminal narrowing is evident. Correlate for possible underlying mass. Objective Assessment LUE abscess s/p 10 ml removal 06/13. S/p Left shoulder open incision and drainage with arthrotomy, debridement of bone and bone cement, and joint irrigation 06/14 RENATA - worse - renal following Hypotension - currently on 19 of Levophed Post op resp failure - intubated - Pulm following Leukocytosis - worse but s/p Dexamethasone 06/14 preop and post op reactive PCN allergy - Hives - believes has tolerated Cephalosporins per his ? [place] syndrome - GI following + BM yesterday rectal tube in CAD - Cardiology follwoing H/o MRSA H/o Group B strep sepsis Erosive Gastritis s/p EGD 06/08 Urinary retention - woodson placed 06/12 Fractures of 2 superior mediastinal wires Plan Plan of Care Cont Daptomycin Q 48 adjusted dose 06/14 Cont Meropenem 1 gm but adjust to daily today F/u labs in am and cults Critically ill D/w nursing RANDEE GARRETT MD Jun 15, 2019 07:39
[2019-06-15 07:43] LABS: ACANTHOCYTES PRESENT; TOXIC GRANULATION PRESENT
[2019-06-15 07:54] LABS: BASE EXCESS ABG -11 mmol/L (-3-3); HCO3 ABG 15 mmol/L (21-28); PCO2 ABG 31 mmHg (35-46); PO2 ABG 80 mmHg (65-108); SAT O2 ABG 94 % (92-99)
[2019-06-15 07:57] LABS: FIO2 ABG 40
--- NOTE | 2019-06-15 08:14 | RAD ---
Chest radiograph 06/15/2019 5:00 AM INDICATION: Routine assessment COMPARISON: 06/14/2019 TECHNIQUE: Portable frontal semi-upright view of the chest is provided. FINDINGS: The cardiomediastinal silhouette is similar in appearance. Median sternotomy changes are present. Endotracheal tube, nasogastric tube and left IJ central venous catheter are in similar position. Mild pulmonary vascular congestion versus perihilar interstitial changes. Left hilar prominence appears stable. No pneumothorax. No significant pleural effusions. Left shoulder hardware is only partially profiled. IMPRESSION: 1. Stable support lines and tubes. Aeration of the lungs appears similar to the prior examination. Electronically signed by: Christina Borrero MD (06/15/2019 8:11 AM) [id number]
--- NOTE | 2019-06-15 08:35 | NUR ---
SS following for discharge planning. Pt transferred to ICU from med surg floor. SS discussed with Geri VENTURA. Pt is from home with spouse and is currently on the vent. SS will continue to follow for discharge planning.
--- NOTE | 2019-06-15 08:41 | PDOC ---
LUIS CARLOS HUMMEL [employer] 06/15/19 0841: SURGICAL PROGRESS NOTE Subjective vent, sedated Vital Signs Vital Signs Date Time Temp Pulse Resp B/P (MAP) Pulse Ox O2 Delivery O2 Flow Rate FiO2 06/15/19 07:35 98 Ventilator 06/15/19 06:00 62 14 119/74 (89) 06/15/19 04:00 98.7 98.7 06/14/19 20:00 2.0 I&O Intake and Output 06/15/19 06:59 Intake Total 4442 ml Output Total 1348 ml Balance 3094 ml Intake Oral 0 ml IV Total 4442 ml Output Urine Total 78 ml Stool Total 1000 ml Gastric Drainage Total 100 ml Drainage Total 70 ml Estimated Blood Loss 100 ml # Bowel Movements 2 PATIENT HAS A MORA: Yes General: No acute distress HEENT: Other (NG in place) Lungs: Other (vent) Abdomen: Soft, Other (ND, reducible hernia ) Labs Laboratory Tests Test 06/13/19 11:01 06/13/19 16:59 06/13/19 21:12 06/14/19 03:40 Glucose (Fingerstick) 181 mg/dL (70-99) 203 mg/dL (70-99) 246 mg/dL (70-99) White Blood Count 18.7 x10^3/uL (4.0-11.0) Red Blood Count 3.73 x10^6/uL (4.30-5.70) Hemoglobin 12.0 g/dL (13.0-17.5) Hematocrit 35.8 % (39.0-53.0) Mean Corpuscular Volume 96 fL (79-100) Mean Corpuscular Hemoglobin 32 pg (25-35) Mean Corpuscular Hemoglobin Concent 33 g/dL (31-37) Red Cell Distribution Width 14.5 % (11.5-14.5) Platelet Count 446 x10^3/uL (140-400) Sodium Level 136 mmol/L (136-145) Potassium Level 4.4 mmol/L (3.5-5.1) Chloride Level 98 mmol/L (98-107) Carbon Dioxide Level 18 mmol/L (21-32) Anion Gap 20 (6-14) Blood Urea Nitrogen 86 mg/dL (8-26) Creatinine 3.6 mg/dL (0.7-1.3) Estimated GFR (Cockcroft-Gault) 16.5 BUN/Creatinine Ratio 24 (6-20) Glucose Level 243 mg/dL (70-99) Calcium Level 7.7 mg/dL (8.5-10.1) Magnesium Level 2.2 mg/dL (1.8-2.4) Total Bilirubin 0.9 mg/dL (0.2-1.0) Aspartate Amino Transf (AST/SGOT) 24 U/L (15-37) Alanine Aminotransferase (ALT/SGPT) 16 U/L (16-63) Alkaline Phosphatase 274 U/L (46-116) Total Protein 5.3 g/dL (6.4-8.2) Albumin 1.2 g/dL (3.4-5.0) Albumin/Globulin Ratio 0.3 (1.0-1.7) Triglycerides Level 63 mg/dL (0-150) Cholesterol Level < 50 mg/dL (0-200) LDL Cholesterol, Calculated 26 mg/dL (0-100) VLDL Cholesterol, Calculated 13 mg/dL (0-40) Non-HDL Cholesterol Calculated 39 mg/dL (0-129) HDL Cholesterol 11 mg/dL (40-60) Cholesterol/HDL Ratio Test 06/14/19 07:16 06/14/19 11:54 06/14/19 16:00 06/14/19 19:15 Glucose (Fingerstick) 249 mg/dL (70-99) 251 mg/dL (70-99) Prothrombin Time 17.3 SEC (11.7-14.0) Prothromb Time International Ratio 1.4 (0.8-1.1) O2 Saturation 91 % (92-99) 95 % (92-99) Arterial Blood pH 7.34 (7.35-7.45) 7.25 (7.35-7.45) Arterial Blood pCO2 at Patient Temp 25 mmHg (35-46) 31 mmHg (35-46) Arterial Blood pO2 at Patient Temp 68 mmHg (65-108) 95 mmHg (65-108) Arterial Blood HCO3 13 mmol/L (21-28) 13 mmol/L (21-28) Arterial Blood Base Excess -11 mmol/L (-3-3) -13 mmol/L (-3-3) FiO2 21 50 Test 06/15/19 00:43 06/15/19 06:10 06/15/19 07:30 Glucose (Fingerstick) 202 mg/dL (70-99) White Blood Count 21.5 x10^3/uL (4.0-11.0) Red Blood Count 3.49 x10^6/uL (4.30-5.70) Hemoglobin 11.0 g/dL (13.0-17.5) Hematocrit 33.1 % (39.0-53.0) Mean Corpuscular Volume 95 fL (79-100) Mean Corpuscular Hemoglobin 32 pg (25-35) Mean Corpuscular Hemoglobin Concent 33 g/dL (31-37) Red Cell Distribution Width 14.5 % (11.5-14.5) Platelet Count 316 x10^3/uL (140-400) Neutrophils (%) (Auto) 91 % (31-73) Lymphocytes (%) (Auto) 5 % (24-48) Monocytes (%) (Auto) 3 % (0-9) Eosinophils (%) (Auto) 0 % (0-3) Basophils (%) (Auto) 0 % (0-3) Neutrophils # (Auto) 19.6 x10^3/uL (1.8-7.7) Lymphocytes # (Auto) 1.1 x10^3/uL (1.0-4.8) Monocytes # (Auto) 0.7 x10^3/uL (0.0-1.1) Eosinophils # (Auto) 0.0 x10^3/uL (0.0-0.7) Basophils # (Auto) 0.0 x10^3/uL (0.0-0.2) Segmented Neutrophils % 20 % (35-66) Band Neutrophils % 50 % (0-9) Lymphocytes % 6 % (24-48) Monocytes % 2 % (0-10) Metamyelocytes % 15 % (0-0) Myelocytes % 7 % (0-0) Nucleated Red Blood Cells 1 Toxic Granulation Present Dohle Bodies Present Platelet Estimate Adequate (ADEQUATE) Acanthocytes Present Sodium Level 136 mmol/L (136-145) Potassium Level 4.6 mmol/L (3.5-5.1) Chloride Level 104 mmol/L (98-107) Carbon Dioxide Level 17 mmol/L (21-32) Anion Gap 15 (6-14) Blood Urea Nitrogen 108 mg/dL (8-26) Creatinine 4.2 mg/dL (0.7-1.3) Estimated GFR (Cockcroft-Gault) 13.8 Glucose Level 216 mg/dL (70-99) Calcium Level 6.7 mg/dL (8.5-10.1) Phosphorus Level 8.6 mg/dL (2.6-4.7) Magnesium Level 2.4 mg/dL (1.8-2.4) O2 Saturation 94 % (92-99) Arterial Blood pH 7.29 (7.35-7.45) Arterial Blood pCO2 at Patient Temp 31 mmHg (35-46) Arterial Blood pO2 at Patient Temp 80 mmHg (65-108) Arterial Blood HCO3 15 mmol/L (21-28) Arterial Blood Base Excess -11 mmol/L (-3-3) FiO2 40 Laboratory Tests Test 06/14/19 11:54 06/14/19 16:00 06/14/19 19:15 06/15/19 00:43 Glucose (Fingerstick) 251 mg/dL (70-99) 202 mg/dL (70-99) Prothrombin Time 17.3 SEC (11.7-14.0) Prothromb Time International Ratio 1.4 (0.8-1.1) O2 Saturation 91 % (92-99) 95 % (92-99) Arterial Blood pH 7.34 (7.35-7.45) 7.25 (7.35-7.45) Arterial Blood pCO2 at Patient Temp 25 mmHg (35-46) 31 mmHg (35-46) Arterial Blood pO2 at Patient Temp 68 mmHg (65-108) 95 mmHg (65-108) Arterial Blood HCO3 13 mmol/L (21-28) 13 mmol/L (21-28) Arterial Blood Base Excess -11 mmol/L (-3-3) -13 mmol/L (-3-3) FiO2 21 50 Test 06/15/19 06:10 06/15/19 07:30 White Blood Count 21.5 x10^3/uL (4.0-11.0) Red Blood Count 3.49 x10^6/uL (4.30-5.70) Hemoglobin 11.0 g/dL (13.0-17.5) Hematocrit 33.1 % (39.0-53.0) Mean Corpuscular Volume 95 fL (79-100) Mean Corpuscular Hemoglobin 32 pg (25-35) Mean Corpuscular Hemoglobin Concent 33 g/dL (31-37) Red Cell Distribution Width 14.5 % (11.5-14.5) Platelet Count 316 x10^3/uL (140-400) Neutrophils (%) (Auto) 91 % (31-73) Lymphocytes (%) (Auto) 5 % (24-48) Monocytes (%) (Auto) 3 % (0-9) Eosinophils (%) (Auto) 0 % (0-3) Basophils (%) (Auto) 0 % (0-3) Neutrophils # (Auto) 19.6 x10^3/uL (1.8-7.7) Lymphocytes # (Auto) 1.1 x10^3/uL (1.0-4.8) Monocytes # (Auto) 0.7 x10^3/uL (0.0-1.1) Eosinophils # (Auto) 0.0 x10^3/uL (0.0-0.7) Basophils # (Auto) 0.0 x10^3/uL (0.0-0.2) Segmented Neutrophils % 20 % (35-66) Band Neutrophils % 50 % (0-9) Lymphocytes % 6 % (24-48) Monocytes % 2 % (0-10) Metamyelocytes % 15 % (0-0) Myelocytes % 7 % (0-0) Nucleated Red Blood Cells 1 Toxic Granulation Present Dohle Bodies Present Platelet Estimate Adequate (ADEQUATE) Acanthocytes Present Sodium Level 136 mmol/L (136-145) Potassium Level 4.6 mmol/L (3.5-5.1) Chloride Level 104 mmol/L (98-107) Carbon Dioxide Level 17 mmol/L (21-32) Anion Gap 15 (6-14) Blood Urea Nitrogen 108 mg/dL (8-26) Creatinine 4.2 mg/dL (0.7-1.3) Estimated GFR (Cockcroft-Gault) 13.8 Glucose Level 216 mg/dL (70-99) Calcium Level 6.7 mg/dL (8.5-10.1) Phosphorus Level 8.6 mg/dL (2.6-4.7) Magnesium Level 2.4 mg/dL (1.8-2.4) O2 Saturation 94 % (92-99) Arterial Blood pH 7.29 (7.35-7.45) Arterial Blood pCO2 at Patient Temp 31 mmHg (35-46) Arterial Blood pO2 at Patient Temp 80 mmHg (65-108) Arterial Blood HCO3 15 mmol/L (21-28) Arterial Blood Base Excess -11 mmol/L (-3-3) FiO2 40 Assessment/Plan no acute general surgery needs AMINA XIONG MD 06/15/19 1322: SURGICAL PROGRESS NOTE Assessment/Plan pt seen family at bedside no surgical recs will sign off please call if needed Thank you LUIS CARLOS HUMMEL APRN Jun 15, 2019 08:41 AMINA XIONG MD Jun 15, 2019 13:22
[2019-06-15] MEDS ORDERED: IV NORMAL SALINE 1000ML BAG 1,000 ML IV ONE (09:00)
--- NOTE | 2019-06-15 09:02 | PDOC ---
NIGELFLORA Ja ORAL SURGEON 06/15/19 0902: SUBJECTIVE Subjective Patient is ventilated and sedated. Attending RN has no concerns for Urology OBJECTIVE Objective Physical Exam: General appearance: Alert and Oriented Head: Normocephalic, without obvious abnormality Eyes: conjunctivae/corneas clear. PERRL, EOM's intact. Fundi benign Lungs: Regular respirations, non labored breathing Abdomen: soft, non-tender. Bowel sounds normal. No masses, no organomegaly Pelvic: + Bledsoe catheter draining dark yellow urine, device in good working order, actively draining Vital Signs Vital Signs Date Time Temp Pulse Resp B/P (MAP) Pulse Ox O2 Delivery O2 Flow Rate FiO2 06/15/19 07:35 98 Ventilator 06/15/19 06:00 62 14 119/74 (89) 95 Ventilator 06/15/19 05:57 16 98 Ventilator 06/15/19 05:57 14 97 Ventilator 06/15/19 05:00 92 14 112/52 (72) 97 Ventilator 06/15/19 04:49 98 Ventilator 06/15/19 04:00 98.7 92 14 102/50 (67) 97 Ventilator 98.7 06/15/19 04:00 92 102/50 (67) 06/15/19 04:00 Mechanical Ventilator 06/15/19 03:00 96 14 113/54 (73) 98 Ventilator 06/15/19 02:26 98 Ventilator 06/15/19 02:00 100 14 101/52 (68) 98 Ventilator 06/15/19 01:15 14 99 Ventilator 06/15/19 01:00 100 14 126/52 (76) 99 Ventilator 06/15/19 00:03 99 Ventilator 06/15/19 00:00 99.0 92 14 110/44 (66) 99 Ventilator 99.0 06/15/19 00:00 92 110/44 (66) 06/15/19 00:00 Mechanical Ventilator 06/14/19 23:00 94 14 120/44 (69) 99 Ventilator 06/14/19 22:30 99 Ventilator 06/14/19 22:00 90 14 120/42 (68) 99 Ventilator 06/14/19 21:30 96 Ventilator 06/14/19 21:30 90 14 126/44 (71) 99 Ventilator 06/14/19 21:11 16 99 Ventilator 06/14/19 21:00 88 14 110/42 (64) 99 Ventilator 06/14/19 20:30 90 16 112/44 (66) 99 Ventilator 06/14/19 20:00 99 Room Air 2.0 06/14/19 20:00 Mechanical Ventilator 06/14/19 20:00 94 130/46 (74) 06/14/19 20:00 98.5 94 16 130/46 (74) 99 Ventilator 98.5 06/14/19 19:55 96 16 136/48 97 06/14/19 19:54 86/ 06/14/19 19:40 104 16 144/43 99 Ventilator 06/14/19 19:25 96 20 138/42 98 Ventilator 06/14/19 19:10 98.5 96 16 93/48 97 Ventilator 98.5 06/14/19 16:45 84 95/50 (65) 91 Room Air 06/14/19 16:30 84 86/42 (57) 93 Room Air 06/14/19 16:15 82 80/46 (57) 94 Room Air 06/14/19 16:00 Room Air 06/14/19 16:00 98.2 84 103/52 (69) 94 Room Air 98.2 06/14/19 15:45 84 82/49 (60) 91 Room Air 06/14/19 15:30 82 79/40 (53) 94 Room Air 06/14/19 15:15 82 94 Room Air 06/14/19 15:00 78 92/36 (54) 93 Room Air 06/14/19 14:45 80 81/33 (49) 93 Room Air 06/14/19 14:30 82 64/27 (39) 95 Room Air 06/14/19 14:15 82 70/38 (49) 93 Room Air 06/14/19 14:00 82 68/40 (49) 95 Room Air 06/14/19 14:00 Room Air 06/14/19 12:39 20 96 Room Air 06/14/19 12:15 20 96 Room Air 06/14/19 11:54 77 19 91/32 (51) 91 Room Air 06/14/19 11:00 98.4 80 20 74/39 (51) 96 Room Air 98.4 06/14/19 09:19 18 91 Room Air I & O Intake and Output 06/15/19 06:59 Intake Total 4442 ml Output Total 1348 ml Balance 3094 ml Intake Oral 0 ml IV Total 4442 ml Output Urine Total 78 ml Stool Total 1000 ml Gastric Drainage Total 100 ml Drainage Total 70 ml Estimated Blood Loss 100 ml # Bowel Movements 2 PHYSICAL EXAM Physical Exam Physical Exam: General appearance: Alert and Oriented Head: Normocephalic, without obvious abnormality Eyes: conjunctivae/corneas clear. PERRL, EOM's intact. Fundi benign Lungs: Regular respirations, non labored breathing Abdomen: soft, non-tender. Bowel sounds normal. No masses, no organomegaly Pelvic: + Bledsoe catheter draining dark yellow urine, device in good working order, actively draining ASSESSMENT/PLAN Assessment/Plan Patient sedated and ventilated Bledsoe catheter working well. Voiding trial when patient recovers, for now maintain Bledsoe. Will follow peripherally over the weekend, but please call with questions or changes in patient condition and we can come sooner. Problems: (1) Bledsoe catheter in place COMMENT Lab Laboratory Tests Test 06/14/19 11:54 06/14/19 16:00 06/14/19 19:15 06/15/19 00:43 Glucose (Fingerstick) 251 mg/dL (70-99) 202 mg/dL (70-99) Prothrombin Time 17.3 SEC (11.7-14.0) Prothromb Time International Ratio 1.4 (0.8-1.1) O2 Saturation 91 % (92-99) 95 % (92-99) Arterial Blood pH 7.34 (7.35-7.45) 7.25 (7.35-7.45) Arterial Blood pCO2 at Patient Temp 25 mmHg (35-46) 31 mmHg (35-46) Arterial Blood pO2 at Patient Temp 68 mmHg (65-108) 95 mmHg (65-108) Arterial Blood HCO3 13 mmol/L (21-28) 13 mmol/L (21-28) Arterial Blood Base Excess -11 mmol/L (-3-3) -13 mmol/L (-3-3) FiO2 21 50 Test 06/15/19 06:10 06/15/19 07:30 White Blood Count 21.5 x10^3/uL (4.0-11.0) Red Blood Count 3.49 x10^6/uL (4.30-5.70) Hemoglobin 11.0 g/dL (13.0-17.5) Hematocrit 33.1 % (39.0-53.0) Mean Corpuscular Volume 95 fL (79-100) Mean Corpuscular Hemoglobin 32 pg (25-35) Mean Corpuscular Hemoglobin Concent 33 g/dL (31-37) Red Cell Distribution Width 14.5 % (11.5-14.5) Platelet Count 316 x10^3/uL (140-400) Neutrophils (%) (Auto) 91 % (31-73) Lymphocytes (%) (Auto) 5 % (24-48) Monocytes (%) (Auto) 3 % (0-9) Eosinophils (%) (Auto) 0 % (0-3) Basophils (%) (Auto) 0 % (0-3) Neutrophils # (Auto) 19.6 x10^3/uL (1.8-7.7) Lymphocytes # (Auto) 1.1 x10^3/uL (1.0-4.8) Monocytes # (Auto) 0.7 x10^3/uL (0.0-1.1) Eosinophils # (Auto) 0.0 x10^3/uL (0.0-0.7) Basophils # (Auto) 0.0 x10^3/uL (0.0-0.2) Segmented Neutrophils % 20 % (35-66) Band Neutrophils % 50 % (0-9) Lymphocytes % 6 % (24-48) Monocytes % 2 % (0-10) Metamyelocytes % 15 % (0-0) Myelocytes % 7 % (0-0) Nucleated Red Blood Cells 1 Toxic Granulation Present Dohle Bodies Present Platelet Estimate Adequate (ADEQUATE) Acanthocytes Present Sodium Level 136 mmol/L (136-145) Potassium Level 4.6 mmol/L (3.5-5.1) Chloride Level 104 mmol/L (98-107) Carbon Dioxide Level 17 mmol/L (21-32) Anion Gap 15 (6-14) Blood Urea Nitrogen 108 mg/dL (8-26) Creatinine 4.2 mg/dL (0.7-1.3) Estimated GFR (Cockcroft-Gault) 13.8 Glucose Level 216 mg/dL (70-99) Calcium Level 6.7 mg/dL (8.5-10.1) Phosphorus Level 8.6 mg/dL (2.6-4.7) Magnesium Level 2.4 mg/dL (1.8-2.4) O2 Saturation 94 % (92-99) Arterial Blood pH 7.29 (7.35-7.45) Arterial Blood pCO2 at Patient Temp 31 mmHg (35-46) Arterial Blood pO2 at Patient Temp 80 mmHg (65-108) Arterial Blood HCO3 15 mmol/L (21-28) Arterial Blood Base Excess -11 mmol/L (-3-3) FiO2 40 SRIKANTH PETTIT MD 06/19/19 1022: ASSESSMENT/PLAN Assessment/Plan Agree with assessment and plan. FLORA MANNING APRN Jun 15, 2019 09:02 SRIKANTH PETTIT MD Jun 19, 2019 10:22
--- NOTE | 2019-06-15 09:07 | PDOC ---
PROGRESS NOTES Subjective Subjective sedated on vent Objective Objective Vital Signs Date Time Temp Pulse Resp B/P (MAP) Pulse Ox O2 Delivery O2 Flow Rate FiO2 06/15/19 07:35 98 Ventilator 06/15/19 06:00 62 14 119/74 (89) 06/15/19 04:00 98.7 98.7 06/14/19 20:00 2.0 Intake and Output 06/15/19 06:59 Intake Total 4442 ml Output Total 1348 ml Balance 3094 ml Intake Oral 0 ml IV Total 4442 ml Output Urine Total 78 ml Stool Total 1000 ml Gastric Drainage Total 100 ml Drainage Total 70 ml Estimated Blood Loss 100 ml # Bowel Movements 2 Physical Exam Physical Exam NGT to suction Abdomen: Soft, Other (ND, reducible hernia ) Heart: Regular rate Extremities: No cyanosis General: Other (on vent) HEENT: Other (NG in place) Lungs: Other (vent) MUSCULOSKELETAL: No deformity, No swelling Neuro: Other (sedated on vent) Psych/Mental Status: Other Skin: No breakdown COMMENT woodson Assessment Assessment ASSESSMENT: Acute Sepsis hypotension Resp failure on vent ATN/ARF septic shoulder CAD s/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 The patient was admitted with hematemesis with findings erosive esophagitis, erosive gastritis and cratered ulcer bulb with clean base, status post biopsy. The biopsy was negative for malignancy and Helicobacter organisms. 2. The patient developed urinary retention for which he had an indwelling Woodson catheter. We will start him on Flomax and finasteride. 3. Acute on chronic kidney injury. Creatinine has risen from 1.5 to 2.4 for which we started him on IV fluid, given a bolus of 500 mL continuous at 125 mL per hour. 4. Abscess or hematoma around the left shoulder with marked leukocytosis as well as elevated sed rate and C-reactive protein. There was gas also in the fluid collection, raising possibility of an abscess. PLAN: pt was taken to surgery 06/14/19, shoulder irrigation. on vent for resp failure. levophed 14 mcg for hypotension renal consult appreciated spoke with ID , gram positive on shoulder c/s critical condition wbc 21, cr 4.2 inc iv antibiotics ngt and iv fluids. renal consult. ?[facility] transfer on hold due to critical illness. Gi and surgry on case. Comment Review of Relevant I have reviewed the following items john (where applicable) has been applied. Labs Laboratory Tests Test 06/14/19 11:54 06/14/19 16:00 06/14/19 19:15 06/15/19 00:43 Glucose (Fingerstick) 251 mg/dL (70-99) 202 mg/dL (70-99) Prothrombin Time 17.3 SEC (11.7-14.0) Prothromb Time International Ratio 1.4 (0.8-1.1) O2 Saturation 91 % (92-99) 95 % (92-99) Arterial Blood pH 7.34 (7.35-7.45) 7.25 (7.35-7.45) Arterial Blood pCO2 at Patient Temp 25 mmHg (35-46) 31 mmHg (35-46) Arterial Blood pO2 at Patient Temp 68 mmHg (65-108) 95 mmHg (65-108) Arterial Blood HCO3 13 mmol/L (21-28) 13 mmol/L (21-28) Arterial Blood Base Excess -11 mmol/L (-3-3) -13 mmol/L (-3-3) FiO2 21 50 Test 06/15/19 06:10 06/15/19 07:30 White Blood Count 21.5 x10^3/uL (4.0-11.0) Red Blood Count 3.49 x10^6/uL (4.30-5.70) Hemoglobin 11.0 g/dL (13.0-17.5) Hematocrit 33.1 % (39.0-53.0) Mean Corpuscular Volume 95 fL (79-100) Mean Corpuscular Hemoglobin 32 pg (25-35) Mean Corpuscular Hemoglobin Concent 33 g/dL (31-37) Red Cell Distribution Width 14.5 % (11.5-14.5) Platelet Count 316 x10^3/uL (140-400) Neutrophils (%) (Auto) 91 % (31-73) Lymphocytes (%) (Auto) 5 % (24-48) Monocytes (%) (Auto) 3 % (0-9) Eosinophils (%) (Auto) 0 % (0-3) Basophils (%) (Auto) 0 % (0-3) Neutrophils # (Auto) 19.6 x10^3/uL (1.8-7.7) Lymphocytes # (Auto) 1.1 x10^3/uL (1.0-4.8) Monocytes # (Auto) 0.7 x10^3/uL (0.0-1.1) Eosinophils # (Auto) 0.0 x10^3/uL (0.0-0.7) Basophils # (Auto) 0.0 x10^3/uL (0.0-0.2) Segmented Neutrophils % 20 % (35-66) Band Neutrophils % 50 % (0-9) Lymphocytes % 6 % (24-48) Monocytes % 2 % (0-10) Metamyelocytes % 15 % (0-0) Myelocytes % 7 % (0-0) Nucleated Red Blood Cells 1 Toxic Granulation Present Dohle Bodies Present Platelet Estimate Adequate (ADEQUATE) Acanthocytes Present Sodium Level 136 mmol/L (136-145) Potassium Level 4.6 mmol/L (3.5-5.1) Chloride Level 104 mmol/L (98-107) Carbon Dioxide Level 17 mmol/L (21-32) Anion Gap 15 (6-14) Blood Urea Nitrogen 108 mg/dL (8-26) Creatinine 4.2 mg/dL (0.7-1.3) Estimated GFR (Cockcroft-Gault) 13.8 Glucose Level 216 mg/dL (70-99) Calcium Level 6.7 mg/dL (8.5-10.1) Phosphorus Level 8.6 mg/dL (2.6-4.7) Magnesium Level 2.4 mg/dL (1.8-2.4) O2 Saturation 94 % (92-99) Arterial Blood pH 7.29 (7.35-7.45) Arterial Blood pCO2 at Patient Temp 31 mmHg (35-46) Arterial Blood pO2 at Patient Temp 80 mmHg (65-108) Arterial Blood HCO3 15 mmol/L (21-28) Arterial Blood Base Excess -11 mmol/L (-3-3) FiO2 40 Microbiology 06/13/19 AFB Specimen Processing Tissue - Final, Resulted 06/13/19 Acid Fast Bacilli Culture, Resulted Pending 06/13/19 Gram Stain - Final, Resulted 06/13/19 Fungal Culture, Resulted Pending 06/13/19 Fungal Culture Result 1, Resulted Pending 06/13/19 Blood Culture - Preliminary, Resulted NO GROWTH AFTER 1 DAY Medications Current Medications Albumin Human 500 ml @ 125 mls/hr 1X ONCE IV Last administered on 06/14/19at 20:00; Start 06/14/19 at 20:00; Stop 06/14/19 at 23:59; Status DC Albumin Human 500 ml @ As Directed STK-MED ONCE IV ; Start 06/14/19 at 18:10; Stop 06/14/19 at 18:11; Status DC Amino Acids/ Electrolytes/ Dextrose 1,000 ml @ 80 mls/hr [id number] IV Last administered on 06/14/19at 23:06; Start 06/14/19 at 10:30 Bupivacaine HCl/ Epinephrine Bitart (Sensorcaine-Epi 0.25%-1:[id number] Mpf) 30 ml 1X ONCE INJ ; Start 06/14/19 at 17:45; Stop 06/14/19 at 17:46; Status Cancel Clindamycin Phosphate 50 ml @ As Directed STK-MED ONCE IV ; Start 06/14/19 at 18:07; Stop 06/14/19 at 18:07; Status DC Daptomycin 560 mg/ Sodium Chloride 50 ml @ 100 mls/hr Q48H IV ; Start 06/15/19 at 14:00 Dexamethasone Sodium Phosphate (Decadron) 4 mg STK-MED ONCE .ROUTE ; Start 06/14/19 at 16:17; Stop 06/14/19 at 16:17; Status DC Ephedrine Sulfate (ePHEDrine PF IN SALINE SYRINGE) 50 mg STK-MED ONCE IV ; Start 06/14/19 at 19:21; Stop 06/14/19 at 19:21; Status DC Famotidine (Pepcid Vial) 20 mg STK-MED ONCE .ROUTE ; Start 06/14/19 at 16:17; Stop 06/14/19 at 16:17; Status DC Fentanyl Citrate 30 ml @ 0 mls/hr CONT PRN IV SEE PROTOCOL Last administered on 06/15/19at 08:40; Start 06/14/19 at 20:00 Fentanyl Citrate (Fentanyl 2ml Vial) 100 mcg STK-MED ONCE .ROUTE ; Start 06/14/19 at 16:17; Stop 06/14/19 at 16:17; Status DC Ketamine HCl (Ketamine) 50 mg STK-MED ONCE .ROUTE ; Start 06/14/19 at 17:03; Stop 06/14/19 at 17:03; Status DC Lidocaine HCl (Lidocaine Pf 2% Vial) 5 ml STK-MED ONCE .ROUTE ; Start 06/14/19 at 16:17; Stop 06/14/19 at 16:17; Status DC Meropenem 1 gm/ Sodium Chloride 100 ml @ 200 mls/hr DAILY IV ; Start 06/15/19 at 09:00 Methylnaltrexone [place] (Relistor) 6 mg 1X ONCE SQ Last administered on 06/14/19at 14:15; Start 06/14/19 at 14:00; Stop 06/14/19 at 14:01; Status DC Norepinephrine Bitartrate 250 ml @ 17.398 mls/ hr CONT PRN IV SEE I/O RECORD Last administered on 06/15/19at 06:00; Start 06/14/19 at 14:30 Ondansetron HCl (Zofran) 4 mg STK-MED ONCE .ROUTE ; Start 06/14/19 at 16:17; Stop 06/14/19 at 16:17; Status DC Phenylephrine HCl (PHENYLEPHRINE in 0.9% NACL PF) 1 mg STK-MED ONCE IV ; Start 06/14/19 at 17:03; Stop 06/14/19 at 17:04; Status DC Propofol 20 ml @ As Directed STK-MED ONCE IV ; Start 06/14/19 at 16:17; Stop 06/14/19 at 16:17; Status DC Propofol 100 ml @ 0 mls/hr CONT PRN IV SEE PROTOCOL Last administered on 06/14/19at 20:13; Start 06/14/19 at 20:00 Rocuronium [place] (Zemuron) 50 mg STK-MED ONCE .ROUTE ; Start 06/14/19 at 16:32; Stop 06/14/19 at 16:32; Status DC Sodium Bicarbonate 50 meq/Sodium Chloride 1,050 ml @ 125 mls/hr 1X ONCE IV Last administered on 06/14/19at 22:34; Start 06/14/19 at 23:00; Stop 06/15/19 at 07:23; Status DC Sodium Chloride 500 ml @ 500 mls/hr 1X ONCE IV Last administered on 06/14/19at 11:54; Start 06/14/19 at 11:45; Stop 06/14/19 at 12:44; Status DC Sodium Chloride 500 ml @ 500 mls/hr 1X ONCE IV Last administered on 06/14/19at 12:25; Start 06/14/19 at 11:45; Stop 06/14/19 at 12:44; Status DC Sodium Chloride 1,000 ml @ 125 mls/hr Q8H IV Last administered on 06/15/19at 07:36; Start 06/15/19 at 06:00 Succinylcholine Chloride (Anectine) 200 mg STK-MED ONCE .ROUTE ; Start 06/14/19 at 16:17; Stop 06/14/19 at 16:17; Status DC Testosterone Cypionate (Depo-Testosterone) 200 mg Q2WKS IM ; Start 06/22/19 at 09:00 Vitals/I & O Vital Sign - Last 24 Hours 06/14/19 06/14/19 06/14/19 06/14/19 09:19 11:00 11:54 12:15 Temp 98.4 98.4 Pulse 80 77 Resp 18 20 19 20 B/P (MAP) 74/39 (51) 91/32 (51) Pulse Ox 91 96 91 96 O2 Delivery Room Air Room Air Room Air Room Air 06/14/19 06/14/19 06/14/19 06/14/19 12:39 14:00 14:00 14:15 Pulse 82 82 Resp 20 B/P (MAP) 68/40 (49) 70/38 (49) Pulse Ox 96 95 93 O2 Delivery Room Air Room Air Room Air Room Air 06/14/19 06/14/19 06/14/19 06/14/19 14:30 14:45 15:00 15:15 Pulse 82 80 78 82 B/P (MAP) 64/27 (39) 81/33 (49) 92/36 (54) Pulse Ox 95 93 93 94 O2 Delivery Room Air Room Air Room Air Room Air 06/14/19 06/14/19 06/14/19 06/14/19 15:30 15:45 16:00 16:00 Temp 98.2 98.2 Pulse 82 84 84 B/P (MAP) 79/40 (53) 82/49 (60) 103/52 (69) Pulse Ox 94 91 94 O2 Delivery Room Air Room Air Room Air Room Air 06/14/19 06/14/19 06/14/19 06/14/19 16:15 16:30 16:45 19:10 Temp 98.5 98.5 Pulse 82 84 84 96 Resp 16 B/P (MAP) 80/46 (57) 86/42 (57) 95/50 (65) 93/48 Pulse Ox 94 93 91 97 O2 Delivery Room Air Room Air Room Air Ventilator 06/14/19 06/14/19 06/14/19 06/14/19 19:25 19:40 19:54 19:55 Pulse 96 104 96 Resp 20 16 16 B/P (MAP) 138/42 144/43 86/ 136/48 Pulse Ox 98 99 97 O2 Delivery Ventilator Ventilator 06/14/19 06/14/19 06/14/19 06/14/19 20:00 20:00 20:00 20:00 Temp 98.5 98.5 Pulse 94 94 Resp 16 B/P (MAP) 130/46 (74) 130/46 (74) Pulse Ox 99 99 O2 Delivery Ventilator Mechanical Ventilator Room Air O2 Flow Rate 2.0 06/14/19 06/14/19 06/14/19 06/14/19 20:30 21:00 21:11 21:30 Pulse 90 88 90 Resp 16 14 16 14 B/P (MAP) 112/44 (66) 110/42 (64) 126/44 (71) Pulse Ox 99 99 99 99 O2 Delivery Ventilator Ventilator Ventilator Ventilator 06/14/19 06/14/19 06/14/19 06/14/19 21:30 22:00 22:30 23:00 Pulse 90 94 Resp 14 14 B/P (MAP) 120/42 (68) 120/44 (69) Pulse Ox 96 99 99 99 O2 Delivery Ventilator Ventilator Ventilator Ventilator 06/15/19 06/15/19 06/15/19 06/15/19 00:00 00:00 00:00 00:03 Temp 99.0 99.0 Pulse 92 92 Resp 14 B/P (MAP) 110/44 (66) 110/44 (66) Pulse Ox 99 99 O2 Delivery Mechanical Ventilator Ventilator Ventilator 06/15/19 06/15/19 06/15/19 06/15/19 01:00 01:15 02:00 02:26 Pulse 100 100 Resp 14 14 14 B/P (MAP) 126/52 (76) 101/52 (68) Pulse Ox 99 99 98 98 O2 Delivery Ventilator Ventilator Ventilator Ventilator 06/15/19 06/15/19 06/15/19 06/15/19 03:00 04:00 04:00 04:00 Temp 98.7 98.7 Pulse 96 92 92 Resp 14 14 B/P (MAP) 113/54 (73) 102/50 (67) 102/50 (67) Pulse Ox 98 97 O2 Delivery Ventilator Mechanical Ventilator Ventilator 06/15/19 06/15/19 06/15/19 06/15/19 04:49 05:00 05:57 05:57 Pulse 92 Resp 14 14 16 B/P (MAP) 112/52 (72) Pulse Ox 98 97 97 98 O2 Delivery Ventilator Ventilator Ventilator Ventilator 06/15/19 06/15/19 06:00 07:35 Pulse 62 Resp 14 B/P (MAP) 119/74 (89) Pulse Ox 95 98 O2 Delivery Ventilator Ventilator Intake and Output 06/14/19 06/14/19 06/15/19 14:59 22:59 06:59 Intake Total 0 ml 850 ml 3592 ml Output Total 100 ml 120 ml 1128 ml Balance -100 ml 730 ml 2464 ml DESIREE BAY MD Jun 15, 2019 09:07
--- NOTE | 2019-06-15 09:14 | PDOC ---
PULMONARY PROGRESS NOTES Subjective PT ON AC MODE S/P OR NOW ON PRESSORS POOR URINE O Vitals Vital Signs Date Time Temp Pulse Resp B/P (MAP) Pulse Ox O2 Delivery O2 Flow Rate FiO2 06/15/19 07:35 98 Ventilator 06/15/19 06:00 62 14 119/74 (89) 06/15/19 04:00 98.7 98.7 06/14/19 20:00 2.0 Lungs: Crackles Cardiovascular: S1, S2 Abdomen: Other (TENDER) Extremities: Other (EDEMA) Skin: Warm Labs Laboratory Tests Test 06/13/19 11:01 06/13/19 16:59 06/13/19 21:12 06/14/19 03:40 Glucose (Fingerstick) 181 mg/dL (70-99) 203 mg/dL (70-99) 246 mg/dL (70-99) White Blood Count 18.7 x10^3/uL (4.0-11.0) Red Blood Count 3.73 x10^6/uL (4.30-5.70) Hemoglobin 12.0 g/dL (13.0-17.5) Hematocrit 35.8 % (39.0-53.0) Mean Corpuscular Volume 96 fL (79-100) Mean Corpuscular Hemoglobin 32 pg (25-35) Mean Corpuscular Hemoglobin Concent 33 g/dL (31-37) Red Cell Distribution Width 14.5 % (11.5-14.5) Platelet Count 446 x10^3/uL (140-400) Sodium Level 136 mmol/L (136-145) Potassium Level 4.4 mmol/L (3.5-5.1) Chloride Level 98 mmol/L (98-107) Carbon Dioxide Level 18 mmol/L (21-32) Anion Gap 20 (6-14) Blood Urea Nitrogen 86 mg/dL (8-26) Creatinine 3.6 mg/dL (0.7-1.3) Estimated GFR (Cockcroft-Gault) 16.5 BUN/Creatinine Ratio 24 (6-20) Glucose Level 243 mg/dL (70-99) Calcium Level 7.7 mg/dL (8.5-10.1) Magnesium Level 2.2 mg/dL (1.8-2.4) Total Bilirubin 0.9 mg/dL (0.2-1.0) Aspartate Amino Transf (AST/SGOT) 24 U/L (15-37) Alanine Aminotransferase (ALT/SGPT) 16 U/L (16-63) Alkaline Phosphatase 274 U/L (46-116) Total Protein 5.3 g/dL (6.4-8.2) Albumin 1.2 g/dL (3.4-5.0) Albumin/Globulin Ratio 0.3 (1.0-1.7) Triglycerides Level 63 mg/dL (0-150) Cholesterol Level < 50 mg/dL (0-200) LDL Cholesterol, Calculated 26 mg/dL (0-100) VLDL Cholesterol, Calculated 13 mg/dL (0-40) Non-HDL Cholesterol Calculated 39 mg/dL (0-129) HDL Cholesterol 11 mg/dL (40-60) Cholesterol/HDL Ratio Test 06/14/19 07:16 06/14/19 11:54 06/14/19 16:00 06/14/19 19:15 Glucose (Fingerstick) 249 mg/dL (70-99) 251 mg/dL (70-99) Prothrombin Time 17.3 SEC (11.7-14.0) Prothromb Time International Ratio 1.4 (0.8-1.1) O2 Saturation 91 % (92-99) 95 % (92-99) Arterial Blood pH 7.34 (7.35-7.45) 7.25 (7.35-7.45) Arterial Blood pCO2 at Patient Temp 25 mmHg (35-46) 31 mmHg (35-46) Arterial Blood pO2 at Patient Temp 68 mmHg (65-108) 95 mmHg (65-108) Arterial Blood HCO3 13 mmol/L (21-28) 13 mmol/L (21-28) Arterial Blood Base Excess -11 mmol/L (-3-3) -13 mmol/L (-3-3) FiO2 21 50 Test 06/15/19 00:43 06/15/19 06:10 06/15/19 07:30 Glucose (Fingerstick) 202 mg/dL (70-99) White Blood Count 21.5 x10^3/uL (4.0-11.0) Red Blood Count 3.49 x10^6/uL (4.30-5.70) Hemoglobin 11.0 g/dL (13.0-17.5) Hematocrit 33.1 % (39.0-53.0) Mean Corpuscular Volume 95 fL (79-100) Mean Corpuscular Hemoglobin 32 pg (25-35) Mean Corpuscular Hemoglobin Concent 33 g/dL (31-37) Red Cell Distribution Width 14.5 % (11.5-14.5) Platelet Count 316 x10^3/uL (140-400) Neutrophils (%) (Auto) 91 % (31-73) Lymphocytes (%) (Auto) 5 % (24-48) Monocytes (%) (Auto) 3 % (0-9) Eosinophils (%) (Auto) 0 % (0-3) Basophils (%) (Auto) 0 % (0-3) Neutrophils # (Auto) 19.6 x10^3/uL (1.8-7.7) Lymphocytes # (Auto) 1.1 x10^3/uL (1.0-4.8) Monocytes # (Auto) 0.7 x10^3/uL (0.0-1.1) Eosinophils # (Auto) 0.0 x10^3/uL (0.0-0.7) Basophils # (Auto) 0.0 x10^3/uL (0.0-0.2) Segmented Neutrophils % 20 % (35-66) Band Neutrophils % 50 % (0-9) Lymphocytes % 6 % (24-48) Monocytes % 2 % (0-10) Metamyelocytes % 15 % (0-0) Myelocytes % 7 % (0-0) Nucleated Red Blood Cells 1 Toxic Granulation Present Dohle Bodies Present Platelet Estimate Adequate (ADEQUATE) Acanthocytes Present Sodium Level 136 mmol/L (136-145) Potassium Level 4.6 mmol/L (3.5-5.1) Chloride Level 104 mmol/L (98-107) Carbon Dioxide Level 17 mmol/L (21-32) Anion Gap 15 (6-14) Blood Urea Nitrogen 108 mg/dL (8-26) Creatinine 4.2 mg/dL (0.7-1.3) Estimated GFR (Cockcroft-Gault) 13.8 Glucose Level 216 mg/dL (70-99) Calcium Level 6.7 mg/dL (8.5-10.1) Phosphorus Level 8.6 mg/dL (2.6-4.7) Magnesium Level 2.4 mg/dL (1.8-2.4) O2 Saturation 94 % (92-99) Arterial Blood pH 7.29 (7.35-7.45) Arterial Blood pCO2 at Patient Temp 31 mmHg (35-46) Arterial Blood pO2 at Patient Temp 80 mmHg (65-108) Arterial Blood HCO3 15 mmol/L (21-28) Arterial Blood Base Excess -11 mmol/L (-3-3) FiO2 40 Laboratory Tests Test 06/14/19 11:54 06/14/19 16:00 06/14/19 19:15 06/15/19 00:43 Glucose (Fingerstick) 251 mg/dL (70-99) 202 mg/dL (70-99) Prothrombin Time 17.3 SEC (11.7-14.0) Prothromb Time International Ratio 1.4 (0.8-1.1) O2 Saturation 91 % (92-99) 95 % (92-99) Arterial Blood pH 7.34 (7.35-7.45) 7.25 (7.35-7.45) Arterial Blood pCO2 at Patient Temp 25 mmHg (35-46) 31 mmHg (35-46) Arterial Blood pO2 at Patient Temp 68 mmHg (65-108) 95 mmHg (65-108) Arterial Blood HCO3 13 mmol/L (21-28) 13 mmol/L (21-28) Arterial Blood Base Excess -11 mmol/L (-3-3) -13 mmol/L (-3-3) FiO2 21 50 Test 06/15/19 06:10 06/15/19 07:30 White Blood Count 21.5 x10^3/uL (4.0-11.0) Red Blood Count 3.49 x10^6/uL (4.30-5.70) Hemoglobin 11.0 g/dL (13.0-17.5) Hematocrit 33.1 % (39.0-53.0) Mean Corpuscular Volume 95 fL (79-100) Mean Corpuscular Hemoglobin 32 pg (25-35) Mean Corpuscular Hemoglobin Concent 33 g/dL (31-37) Red Cell Distribution Width 14.5 % (11.5-14.5) Platelet Count 316 x10^3/uL (140-400) Neutrophils (%) (Auto) 91 % (31-73) Lymphocytes (%) (Auto) 5 % (24-48) Monocytes (%) (Auto) 3 % (0-9) Eosinophils (%) (Auto) 0 % (0-3) Basophils (%) (Auto) 0 % (0-3) Neutrophils # (Auto) 19.6 x10^3/uL (1.8-7.7) Lymphocytes # (Auto) 1.1 x10^3/uL (1.0-4.8) Monocytes # (Auto) 0.7 x10^3/uL (0.0-1.1) Eosinophils # (Auto) 0.0 x10^3/uL (0.0-0.7) Basophils # (Auto) 0.0 x10^3/uL (0.0-0.2) Segmented Neutrophils % 20 % (35-66) Band Neutrophils % 50 % (0-9) Lymphocytes % 6 % (24-48) Monocytes % 2 % (0-10) Metamyelocytes % 15 % (0-0) Myelocytes % 7 % (0-0) Nucleated Red Blood Cells 1 Toxic Granulation Present Dohle Bodies Present Platelet Estimate Adequate (ADEQUATE) Acanthocytes Present Sodium Level 136 mmol/L (136-145) Potassium Level 4.6 mmol/L (3.5-5.1) Chloride Level 104 mmol/L (98-107) Carbon Dioxide Level 17 mmol/L (21-32) Anion Gap 15 (6-14) Blood Urea Nitrogen 108 mg/dL (8-26) Creatinine 4.2 mg/dL (0.7-1.3) Estimated GFR (Cockcroft-Gault) 13.8 Glucose Level 216 mg/dL (70-99) Calcium Level 6.7 mg/dL (8.5-10.1) Phosphorus Level 8.6 mg/dL (2.6-4.7) Magnesium Level 2.4 mg/dL (1.8-2.4) O2 Saturation 94 % (92-99) Arterial Blood pH 7.29 (7.35-7.45) Arterial Blood pCO2 at Patient Temp 31 mmHg (35-46) Arterial Blood pO2 at Patient Temp 80 mmHg (65-108) Arterial Blood HCO3 15 mmol/L (21-28) Arterial Blood Base Excess -11 mmol/L (-3-3) FiO2 40 Medications Active Scripts Medications Dose Route/Sig Max Daily Dose Days Date Category Foltx Tablet (B12/Levomefolate Calcium/B-6) 1 Each Tablet 1 Each PO AFTRNOON 06/07/19 Reported Testosterone Cypionate 200 Mg/1 Ml Vial 1 Ml IM Q2WKS 06/07/19 Reported Novolog Mix 70-30 Flexpen Syrn (Insuln Asp Prt/Insulin Aspart) 100 Unit/1 Ml Insuln.pen 1 Unit SQ BIDACBL 06/07/19 Reported Lantus Solostar (Insulin Glargine,Hum.rec.anlog) 100 Unit/1 Ml Insuln.pen 30 Unit SQ QHS 06/07/19 Reported Nifedipine Er (Nifedipine) 60 Mg Tab.er.24 1 Tab PO DAILY 06/07/19 Reported Morphine Sulfate Er (Morphine Sulfate) 60 Mg Tablet.er 1 Tab PO BID 06/07/19 Reported Furosemide 40 Mg Tablet 40 Mg PO DAILY 06/07/19 Reported Finasteride 5 Mg Tablet 1 Tab PO DAILY 06/07/19 Reported Simvastatin 40 Mg Tablet 1 Tab PO QHS 06/07/19 Reported Metoprolol Succinate ( Xl ) (Metoprolol Succinate) 200 Mg Tab.er.24h 1 Tab PO DAILY 06/07/19 Reported Levothyroxine Sodium 175 Mcg Tablet 1 Tab PO DAILY 06/07/19 Reported Losartan-Hctz 100-12.5 Mg Tab (Losartan/Hydrochlorothiazide) 1 Each Tablet 1 Tab PO DAILY 06/07/19 Reported Impression . 1. Abnormal x-ray secondary to atelectasis/CHF 2. Respiratory FAILURE MULTIFACTORIAL NOW S/P OR FOR ID OF SHOULDER 3. Erosive gastritis. 4. Diarrhea. 5. Coronary artery disease, status post coronary artery bypass grafting. 6, COLONIC ILEUS 7. SEPSIS WITH HYPOTENSION 8. SHOULDER ABSCESS Plan . D/W DR VOGEL WILL NEED HD ABG NOTED COMPENSATED IV FLUIDS OVERALL PROGNOSIS SI GUARDED STARTED LEVOPHED ANTI BX PER ID CCT 30 MIN D/W FAMILY AT BEDSIDE UPDATED EDMAR GARG MD Jun 15, 2019 09:14
[2019-06-15 09:48] LABS: ALBUMIN 1.7 g/dL (3.4-5.0); ALBUMIN/GLOBULIN RATIO 0.5 (1.0-1.7); CREATININE 4.2 mg/dL (0.7-1.3); GFR 13.8; POTASSIUM 4.6 mmol/L (3.5-5.1); TOTAL BILIRUBIN 0.8 mg/dL (0.2-1.0); TOTAL PROTEIN 4.9 g/dL (6.4-8.2)
[2019-06-15 09:54] LABS: CALCIUM 6.7 mg/dL (8.5-10.1)
[2019-06-15] MEDS ORDERED: HEPARIN for IV BOLUS 10,000 UNIT/10 ML VIAL. ONE (10:18)
[2019-06-15] MEDS ORDERED: LIDOCAINE WITH 8.4% SOD BICARB 3 ML DISP.SYRIN. ONE (10:19)
[2019-06-15] MEDS: SODIUM BICARBONATE VIAL 50 MEQ in IV 1/2 NORMAL SALINE 1,000 ML IV SCH ×2 (10:25→16:21)
[2019-06-15] MEDS: PROPOFOL 100 ML IV PRN (10:33)
[2019-06-15] MEDS ORDERED: LIDOCAINE WITH 8.4% SOD BICARB 3 ML DISP.SYRIN. INJ ONE (11:00)
--- NOTE | 2019-06-15 11:19 | PDOC ---
Renal-Progress Notes Subjective Notes Notes INTUBATED History of Present Illness Hx of present illness IN THE ICU Vitals Vitals Vital Signs Date Time Temp Pulse Resp B/P (MAP) Pulse Ox O2 Delivery O2 Flow Rate FiO2 06/15/19 09:22 97 Ventilator 06/15/19 09:00 92 112/38 (62) 06/15/19 06:00 14 06/15/19 04:00 98.7 98.7 06/14/19 20:00 2.0 Weight Weight [ ] I.O. Intake and Output Intake and Output 06/15/19 06:59 Intake Total 4442 ml Output Total 1348 ml Balance 3094 ml Intake Oral 0 ml IV Total 4442 ml Output Urine Total 78 ml Stool Total 1000 ml Gastric Drainage Total 100 ml Drainage Total 70 ml Estimated Blood Loss 100 ml # Bowel Movements 2 Labs Labs Laboratory Tests Test 06/14/19 11:54 06/14/19 16:00 06/14/19 19:15 06/15/19 00:43 Glucose (Fingerstick) 251 mg/dL (70-99) 202 mg/dL (70-99) Prothrombin Time 17.3 SEC (11.7-14.0) Prothromb Time International Ratio 1.4 (0.8-1.1) O2 Saturation 91 % (92-99) 95 % (92-99) Arterial Blood pH 7.34 (7.35-7.45) 7.25 (7.35-7.45) Arterial Blood pCO2 at Patient Temp 25 mmHg (35-46) 31 mmHg (35-46) Arterial Blood pO2 at Patient Temp 68 mmHg (65-108) 95 mmHg (65-108) Arterial Blood HCO3 13 mmol/L (21-28) 13 mmol/L (21-28) Arterial Blood Base Excess -11 mmol/L (-3-3) -13 mmol/L (-3-3) FiO2 21 50 Test 06/15/19 06:10 06/15/19 07:30 06/15/19 09:57 White Blood Count 21.5 x10^3/uL (4.0-11.0) Red Blood Count 3.49 x10^6/uL (4.30-5.70) Hemoglobin 11.0 g/dL (13.0-17.5) Hematocrit 33.1 % (39.0-53.0) Mean Corpuscular Volume 95 fL (79-100) Mean Corpuscular Hemoglobin 32 pg (25-35) Mean Corpuscular Hemoglobin Concent 33 g/dL (31-37) Red Cell Distribution Width 14.5 % (11.5-14.5) Platelet Count 316 x10^3/uL (140-400) Neutrophils (%) (Auto) 91 % (31-73) Lymphocytes (%) (Auto) 5 % (24-48) Monocytes (%) (Auto) 3 % (0-9) Eosinophils (%) (Auto) 0 % (0-3) Basophils (%) (Auto) 0 % (0-3) Neutrophils # (Auto) 19.6 x10^3/uL (1.8-7.7) Lymphocytes # (Auto) 1.1 x10^3/uL (1.0-4.8) Monocytes # (Auto) 0.7 x10^3/uL (0.0-1.1) Eosinophils # (Auto) 0.0 x10^3/uL (0.0-0.7) Basophils # (Auto) 0.0 x10^3/uL (0.0-0.2) Segmented Neutrophils % 20 % (35-66) Band Neutrophils % 50 % (0-9) Lymphocytes % 6 % (24-48) Monocytes % 2 % (0-10) Metamyelocytes % 15 % (0-0) Myelocytes % 7 % (0-0) Nucleated Red Blood Cells 1 Toxic Granulation Present Dohle Bodies Present Platelet Estimate Adequate (ADEQUATE) Acanthocytes Present Sodium Level 136 mmol/L (136-145) Potassium Level 4.6 mmol/L (3.5-5.1) Chloride Level 104 mmol/L (98-107) Carbon Dioxide Level 17 mmol/L (21-32) Anion Gap 15 (6-14) Blood Urea Nitrogen 108 mg/dL (8-26) Creatinine 4.2 mg/dL (0.7-1.3) Estimated GFR (Cockcroft-Gault) 13.8 BUN/Creatinine Ratio 26 (6-20) Glucose Level 216 mg/dL (70-99) Calcium Level 6.7 mg/dL (8.5-10.1) Phosphorus Level 8.6 mg/dL (2.6-4.7) Magnesium Level 2.4 mg/dL (1.8-2.4) Total Bilirubin 0.8 mg/dL (0.2-1.0) Aspartate Amino Transf (AST/SGOT) 30 U/L (15-37) Alanine Aminotransferase (ALT/SGPT) 16 U/L (16-63) Alkaline Phosphatase 214 U/L (46-116) Total Protein 4.9 g/dL (6.4-8.2) Albumin 1.7 g/dL (3.4-5.0) Albumin/Globulin Ratio 0.5 (1.0-1.7) O2 Saturation 94 % (92-99) Arterial Blood pH 7.29 (7.35-7.45) Arterial Blood pCO2 at Patient Temp 31 mmHg (35-46) Arterial Blood pO2 at Patient Temp 80 mmHg (65-108) Arterial Blood HCO3 15 mmol/L (21-28) Arterial Blood Base Excess -11 mmol/L (-3-3) FiO2 40 Glucose (Fingerstick) 211 mg/dL (70-99) Micro Micro Microbiology 06/13/19 AFB Specimen Processing Tissue - Final, Resulted 06/13/19 Acid Fast Bacilli Culture, Resulted Pending 06/13/19 Gram Stain - Final, Resulted 06/13/19 Fungal Culture, Resulted Pending 06/13/19 Fungal Culture Result 1, Resulted Pending 06/13/19 Blood Culture - Preliminary, Resulted NO GROWTH AFTER 1 DAY Review of Systems Constitutional: yes: unresponsive Physical Exam General Appearance: no apparent distress Skin: warm Respiratory: decreased breath sounds Heart: S1S2 Abdomen: soft, bowel sounds present Genitourinary: bladder flat Extremities: pulses present, no edema, atrophy Neurology: other (SEDATED) Musculoskeletal: Other Assessment Assessment IMP [id number] UP TO 4.3 MET ACIDOSIS CKD STAGE 3-CR PROB ABOUT 1.5 SEPSIS HYPOTENSION URINARY RETENTION LEFT SHOULDER ABSCESS S/P DRAINAGE AND ARTHROTOMY LEFT SHOULDER GASTRITIS LEUCOCYTOSIS BPH PLAN STOP ALL HIS ANTIHYPERTENSIVES AND DIURETICS STOP HIS FLOMAX FOR NOW DUE TO HYPOTENSION ANTIBIOTICS ORTHOPEDIC EVAL HYDRATION-HCO3 TPN VERY ILL NEED TO START DIALYSIS IR TO PLACE TEMP HD CATHETER WILL HAVE HIGH HCO3 DIALYSATE USED UF MINIMAL PRESSORS NEEDED DEREJE VOGEL MD Jun 15, 2019 11:19
[2019-06-15] MEDS: AA 4.25 %/CALCIUM/LYTES/D5W 1,000 ML IV SCH ×2 (11:30→16:23)
--- NOTE | 2019-06-15 11:40 | PDOC ---
G I PROGRESS NOTE Reason for Follow-up DU/Olgilvie syndrome Subjective INtubated/sedated Physical Exam Lungs decreased BS CV S1 S2 ABD distended, hypoactive BS Review of Relevant I have reviewed the following items john (where applicable) has been applied. Labs Laboratory Tests Test 06/13/19 16:59 06/13/19 21:12 06/14/19 03:40 06/14/19 07:16 Glucose (Fingerstick) 203 mg/dL (70-99) 246 mg/dL (70-99) 249 mg/dL (70-99) White Blood Count 18.7 x10^3/uL (4.0-11.0) Red Blood Count 3.73 x10^6/uL (4.30-5.70) Hemoglobin 12.0 g/dL (13.0-17.5) Hematocrit 35.8 % (39.0-53.0) Mean Corpuscular Volume 96 fL (79-100) Mean Corpuscular Hemoglobin 32 pg (25-35) Mean Corpuscular Hemoglobin Concent 33 g/dL (31-37) Red Cell Distribution Width 14.5 % (11.5-14.5) Platelet Count 446 x10^3/uL (140-400) Sodium Level 136 mmol/L (136-145) Potassium Level 4.4 mmol/L (3.5-5.1) Chloride Level 98 mmol/L (98-107) Carbon Dioxide Level 18 mmol/L (21-32) Anion Gap 20 (6-14) Blood Urea Nitrogen 86 mg/dL (8-26) Creatinine 3.6 mg/dL (0.7-1.3) Estimated GFR (Cockcroft-Gault) 16.5 BUN/Creatinine Ratio 24 (6-20) Glucose Level 243 mg/dL (70-99) Calcium Level 7.7 mg/dL (8.5-10.1) Magnesium Level 2.2 mg/dL (1.8-2.4) Total Bilirubin 0.9 mg/dL (0.2-1.0) Aspartate Amino Transf (AST/SGOT) 24 U/L (15-37) Alanine Aminotransferase (ALT/SGPT) 16 U/L (16-63) Alkaline Phosphatase 274 U/L (46-116) Total Protein 5.3 g/dL (6.4-8.2) Albumin 1.2 g/dL (3.4-5.0) Albumin/Globulin Ratio 0.3 (1.0-1.7) Triglycerides Level 63 mg/dL (0-150) Cholesterol Level < 50 mg/dL (0-200) LDL Cholesterol, Calculated 26 mg/dL (0-100) VLDL Cholesterol, Calculated 13 mg/dL (0-40) Non-HDL Cholesterol Calculated 39 mg/dL (0-129) HDL Cholesterol 11 mg/dL (40-60) Cholesterol/HDL Ratio Test 06/14/19 11:54 06/14/19 16:00 06/14/19 19:15 06/15/19 00:43 Glucose (Fingerstick) 251 mg/dL (70-99) 202 mg/dL (70-99) Prothrombin Time 17.3 SEC (11.7-14.0) Prothromb Time International Ratio 1.4 (0.8-1.1) O2 Saturation 91 % (92-99) 95 % (92-99) Arterial Blood pH 7.34 (7.35-7.45) 7.25 (7.35-7.45) Arterial Blood pCO2 at Patient Temp 25 mmHg (35-46) 31 mmHg (35-46) Arterial Blood pO2 at Patient Temp 68 mmHg (65-108) 95 mmHg (65-108) Arterial Blood HCO3 13 mmol/L (21-28) 13 mmol/L (21-28) Arterial Blood Base Excess -11 mmol/L (-3-3) -13 mmol/L (-3-3) FiO2 21 50 Test 06/15/19 06:10 06/15/19 07:30 06/15/19 09:57 White Blood Count 21.5 x10^3/uL (4.0-11.0) Red Blood Count 3.49 x10^6/uL (4.30-5.70) Hemoglobin 11.0 g/dL (13.0-17.5) Hematocrit 33.1 % (39.0-53.0) Mean Corpuscular Volume 95 fL (79-100) Mean Corpuscular Hemoglobin 32 pg (25-35) Mean Corpuscular Hemoglobin Concent 33 g/dL (31-37) Red Cell Distribution Width 14.5 % (11.5-14.5) Platelet Count 316 x10^3/uL (140-400) Neutrophils (%) (Auto) 91 % (31-73) Lymphocytes (%) (Auto) 5 % (24-48) Monocytes (%) (Auto) 3 % (0-9) Eosinophils (%) (Auto) 0 % (0-3) Basophils (%) (Auto) 0 % (0-3) Neutrophils # (Auto) 19.6 x10^3/uL (1.8-7.7) Lymphocytes # (Auto) 1.1 x10^3/uL (1.0-4.8) Monocytes # (Auto) 0.7 x10^3/uL (0.0-1.1) Eosinophils # (Auto) 0.0 x10^3/uL (0.0-0.7) Basophils # (Auto) 0.0 x10^3/uL (0.0-0.2) Segmented Neutrophils % 20 % (35-66) Band Neutrophils % 50 % (0-9) Lymphocytes % 6 % (24-48) Monocytes % 2 % (0-10) Metamyelocytes % 15 % (0-0) Myelocytes % 7 % (0-0) Nucleated Red Blood Cells 1 Toxic Granulation Present Dohle Bodies Present Platelet Estimate Adequate (ADEQUATE) Acanthocytes Present Sodium Level 136 mmol/L (136-145) Potassium Level 4.6 mmol/L (3.5-5.1) Chloride Level 104 mmol/L (98-107) Carbon Dioxide Level 17 mmol/L (21-32) Anion Gap 15 (6-14) Blood Urea Nitrogen 108 mg/dL (8-26) Creatinine 4.2 mg/dL (0.7-1.3) Estimated GFR (Cockcroft-Gault) 13.8 BUN/Creatinine Ratio 26 (6-20) Glucose Level 216 mg/dL (70-99) Calcium Level 6.7 mg/dL (8.5-10.1) Phosphorus Level 8.6 mg/dL (2.6-4.7) Magnesium Level 2.4 mg/dL (1.8-2.4) Total Bilirubin 0.8 mg/dL (0.2-1.0) Aspartate Amino Transf (AST/SGOT) 30 U/L (15-37) Alanine Aminotransferase (ALT/SGPT) 16 U/L (16-63) Alkaline Phosphatase 214 U/L (46-116) Total Protein 4.9 g/dL (6.4-8.2) Albumin 1.7 g/dL (3.4-5.0) Albumin/Globulin Ratio 0.5 (1.0-1.7) O2 Saturation 94 % (92-99) Arterial Blood pH 7.29 (7.35-7.45) Arterial Blood pCO2 at Patient Temp 31 mmHg (35-46) Arterial Blood pO2 at Patient Temp 80 mmHg (65-108) Arterial Blood HCO3 15 mmol/L (21-28) Arterial Blood Base Excess -11 mmol/L (-3-3) FiO2 40 Glucose (Fingerstick) 211 mg/dL (70-99) Laboratory Tests Test 06/14/19 11:54 06/14/19 16:00 06/14/19 19:15 06/15/19 00:43 Glucose (Fingerstick) 251 mg/dL (70-99) 202 mg/dL (70-99) Prothrombin Time 17.3 SEC (11.7-14.0) Prothromb Time International Ratio 1.4 (0.8-1.1) O2 Saturation 91 % (92-99) 95 % (92-99) Arterial Blood pH 7.34 (7.35-7.45) 7.25 (7.35-7.45) Arterial Blood pCO2 at Patient Temp 25 mmHg (35-46) 31 mmHg (35-46) Arterial Blood pO2 at Patient Temp 68 mmHg (65-108) 95 mmHg (65-108) Arterial Blood HCO3 13 mmol/L (21-28) 13 mmol/L (21-28) Arterial Blood Base Excess -11 mmol/L (-3-3) -13 mmol/L (-3-3) FiO2 21 50 Test 06/15/19 06:10 06/15/19 07:30 06/15/19 09:57 White Blood Count 21.5 x10^3/uL (4.0-11.0) Red Blood Count 3.49 x10^6/uL (4.30-5.70) Hemoglobin 11.0 g/dL (13.0-17.5) Hematocrit 33.1 % (39.0-53.0) Mean Corpuscular Volume 95 fL (79-100) Mean Corpuscular Hemoglobin 32 pg (25-35) Mean Corpuscular Hemoglobin Concent 33 g/dL (31-37) Red Cell Distribution Width 14.5 % (11.5-14.5) Platelet Count 316 x10^3/uL (140-400) Neutrophils (%) (Auto) 91 % (31-73) Lymphocytes (%) (Auto) 5 % (24-48) Monocytes (%) (Auto) 3 % (0-9) Eosinophils (%) (Auto) 0 % (0-3) Basophils (%) (Auto) 0 % (0-3) Neutrophils # (Auto) 19.6 x10^3/uL (1.8-7.7) Lymphocytes # (Auto) 1.1 x10^3/uL (1.0-4.8) Monocytes # (Auto) 0.7 x10^3/uL (0.0-1.1) Eosinophils # (Auto) 0.0 x10^3/uL (0.0-0.7) Basophils # (Auto) 0.0 x10^3/uL (0.0-0.2) Segmented Neutrophils % 20 % (35-66) Band Neutrophils % 50 % (0-9) Lymphocytes % 6 % (24-48) Monocytes % 2 % (0-10) Metamyelocytes % 15 % (0-0) Myelocytes % 7 % (0-0) Nucleated Red Blood Cells 1 Toxic Granulation Present Dohle Bodies Present Platelet Estimate Adequate (ADEQUATE) Acanthocytes Present Sodium Level 136 mmol/L (136-145) Potassium Level 4.6 mmol/L (3.5-5.1) Chloride Level 104 mmol/L (98-107) Carbon Dioxide Level 17 mmol/L (21-32) Anion Gap 15 (6-14) Blood Urea Nitrogen 108 mg/dL (8-26) Creatinine 4.2 mg/dL (0.7-1.3) Estimated GFR (Cockcroft-Gault) 13.8 BUN/Creatinine Ratio 26 (6-20) Glucose Level 216 mg/dL (70-99) Calcium Level 6.7 mg/dL (8.5-10.1) Phosphorus Level 8.6 mg/dL (2.6-4.7) Magnesium Level 2.4 mg/dL (1.8-2.4) Total Bilirubin 0.8 mg/dL (0.2-1.0) Aspartate Amino Transf (AST/SGOT) 30 U/L (15-37) Alanine Aminotransferase (ALT/SGPT) 16 U/L (16-63) Alkaline Phosphatase 214 U/L (46-116) Total Protein 4.9 g/dL (6.4-8.2) Albumin 1.7 g/dL (3.4-5.0) Albumin/Globulin Ratio 0.5 (1.0-1.7) O2 Saturation 94 % (92-99) Arterial Blood pH 7.29 (7.35-7.45) Arterial Blood pCO2 at Patient Temp 31 mmHg (35-46) Arterial Blood pO2 at Patient Temp 80 mmHg (65-108) Arterial Blood HCO3 15 mmol/L (21-28) Arterial Blood Base Excess -11 mmol/L (-3-3) FiO2 40 Glucose (Fingerstick) 211 mg/dL (70-99) Microbiology 06/13/19 AFB Specimen Processing Tissue - Final, Resulted 06/13/19 Acid Fast Bacilli Culture, Resulted Pending 06/13/19 Gram Stain - Final, Resulted 06/13/19 Fungal Culture, Resulted Pending 06/13/19 Fungal Culture Result 1, Resulted Pending 06/13/19 Blood Culture - Preliminary, Resulted NO GROWTH AFTER 1 DAY Medications Current Medications Pantoprazole Sodium (PROTONIX VIAL for IV PUSH) 40 mg BID IVP Last administered on 06/11/19at 09:22; Start 06/07/19 at 21:00; Stop 06/11/19 at 12:41; Status DC Sodium Chloride 1,000 ml @ 75 mls/hr [id number] IV Last administered on 06/09/19at 11:36; Start 06/07/19 at 16:30; Stop 06/09/19 at 12:08; Status DC Bisacodyl (Dulcolax Supp) 10 mg 1X ONCE [place] Last administered on 06/07/19at 21:40; Start 06/07/19 at 17:45; Stop 06/07/19 at 17:46; Status DC Hydromorphone HCl (Dilaudid) 1 mg PRN Q4HRS PRN IVP PAIN Last administered on 06/07/19at 18:04; Start 06/07/19 at 17:45; Stop 06/07/19 at 21:48; Status DC Lorazepam (Ativan) 0.5 mg PRN Q6HRS PRN PO ANXIETY / AGITATION; Start 06/07/19 at 18:00; Stop 06/07/19 at 18:14; Status DC Nicotine (Nicoderm Cq 21mg) 1 patch PRN DAILY PRN TD SMOKING CESSATION; Start 06/07/19 at 18:00; Stop 06/07/19 at 18:14; Status DC Hydromorphone HCl (Dilaudid) 2 mg PRN Q3HRS PRN IV PAIN Last administered on 06/14/19 12:39; Start 06/07/19 at 22:00; Stop 06/14/19 at 23:55; Status DC Ringer's Solution 1,000 ml @ 75 mls/hr [id number] IV Last administered on 06/08/19 14:01; Start 06/08/19 at 09:15; Stop 06/09/19 at 08:01; Status DC Propofol 20 ml @ As Directed STK-MED ONCE IV ; Start 06/08/19 at 10:20; Stop 06/08/19 at 10:20; Status DC Lidocaine HCl (Lidocaine Pf 2% Vial) 5 ml STK-MED ONCE .ROUTE ; Start 06/08/19 at 10:20; Stop 06/08/19 at 10:20; Status DC Finasteride (Proscar) 5 mg DAILY PO Last administered on 06/15/19 07:36; Start 06/08/19 at 12:00 Furosemide (Lasix) 40 mg DAILY PO Last administered on 06/12/19 08:36; Start 06/08/19 at 12:00; Stop 06/14/19 at 13:01; Status DC Levothyroxine Sodium (Synthroid) 175 mcg DAILY06 PO Last administered on 06/15/19 07:36; Start 06/08/19 at 12:00 Simvastatin (Zocor) 40 mg QHS PO Last administered on 06/12/19 21:26; Start 06/08/19 at 21:00 Testosterone Cypionate (Depo-Testosterone) 200 mg Q2WKS IM ; Start 06/22/19 at 09:00 Vitamin B Complex (Bud B) 1 tab DAILY PO Last administered on 06/12/19 08:36; Start 06/08/19 at 12:00 Insulin Glargine (Lantus Syringe) 30 unit QHS SQ Last administered on 06/15/19at 01:08; Start 06/08/19 at 21:00 Non-Formulary Medication (Insuln Asp Prt/ Insulin Aspart (Novolog Mix 70-30 Flexpen Syrn)) 1 unit BIDACBL SQ ; Start 06/08/19 at 11:30; Stop 06/08/19 at 19:34; Status DC Losartan Potassium (Cozaar) 100 mg DAILY PO Last administered on 06/12/19at 08:36; Start 06/08/19 at 12:00; Stop 06/14/19 at 13:01; Status DC Metoprolol Succinate (Toprol Xl) 200 mg DAILY PO Last administered on 06/12/19at 08:36; Start 06/08/19 at 12:00; Stop 06/14/19 at 13:01; Status DC Morphine Sulfate (Ms Contin) 60 mg BID PO Last administered on 06/15/19at 07:36; Start 06/08/19 at 12:00 Nifedipine (Procardia Xl) 60 mg DAILY PO Last administered on 06/12/19at 08:36; Start 06/08/19 at 12:00; Stop 06/14/19 at 13:01; Status DC Insulin Human Lispro (HumaLOG) 0-5 UNITS TIDWMEALS SQ Last administered on 06/09/19at 11:36; Start 06/08/19 at 17:00; Stop 06/09/19 at 11:38; Status DC Dextrose (Dextrose 50%-Water Syringe) 12.5 gm PRN Q15MIN PRN IV SEE COMMENTS; Start 06/08/19 at 15:30; Stop 06/09/19 at 15:19; Status DC Dextrose 250 ml PRN Q15MIN PRN IV SEE COMMENTS; Start 06/08/19 at 15:30; Stop 06/09/19 at 15:19; Status DC Insulin Human Lispro (HumaLOG) 0-9 UNITS TIDWMEALS SQ Last administered on 06/15/19at 10:00; Start 06/09/19 at 12:00 Dextrose (Dextrose 50%-Water Syringe) 12.5 gm PRN Q15MIN PRN IV SEE COMMENTS; Start 06/09/19 at 11:45 Dextrose 250 ml PRN Q15MIN PRN IV SEE COMMENTS; Start 06/09/19 at 11:45; Stop 06/09/19 at 15:19; Status DC Pantoprazole Sodium (Protonix) 40 mg DAILYAC PO Last administered on 06/12/19at 08:36; Start 06/12/19 at 07:30; Stop 06/13/19 at 13:27; Status DC Polyethylene Glycol (miraLAX PACKET) 17 gm DAILY PO ; Start 06/12/19 at 09:00; Stop 06/12/19 at 12:28; Status DC Polyethylene Glycol (miraLAX PACKET) 17 gm PRN DAILY PRN PO CONSTIPATION, 1ST CHOICE; Start 06/11/19 at 15:45 Bisacodyl (Dulcolax Tab) 5 mg PRN DAILY PRN PO CONSTIPATION, 2ND CHOICE; Start 06/11/19 at 15:45 Tamsulosin HCl (Flomax) 0.4 mg QHS PO Last administered on 06/12/19at 21:26; Start 06/12/19 at 21:00; Stop 06/14/19 at 13:01; Status DC Finasteride (Proscar) 5 mg DAILY PO ; Start 06/12/19 at 12:00; Stop 06/13/19 at 09:39; Status DC Sodium Chloride 500 ml @ 500 mls/hr 1X ONCE IV Last administered on 06/13/19at 12:45; Start 06/13/19 at 10:00; Stop 06/13/19 at 10:59; Status DC Ondansetron HCl (Zofran) 4 mg PRN Q6HRS PRN IV NAUSEA/VOMITING; Start 06/13/19 at 09:45; Status UNV Sodium Chloride 1,000 ml @ 125 mls/hr Q8H IV Last administered on 06/14/19at 08:48; Start 06/13/19 at 11:00; Stop 06/15/19 at 07:11; Status DC Ondansetron HCl (Zofran) 4 mg PRN Q4HRS PRN IV NAUSEA/VOMITING Last administered on 06/13/19at 22:15; Start 06/13/19 at 09:45 Ondansetron HCl (Zofran) 4 mg STK-MED ONCE .ROUTE ; Start 06/13/19 at 09:39; Stop 06/13/19 at 09:40; Status DC Daptomycin 560 mg/ Sodium Chloride 50 ml @ 100 mls/hr Q24H IV Last administered on 06/13/19at 16:04; Start 06/13/19 at 14:00; Stop 06/14/19 at 11:15; Status DC Meropenem 1 gm/ Sodium Chloride 100 ml @ 200 mls/hr Q12HR IV Last administered on 06/15/19at 07:36; Start 06/13/19 at 15:00; Stop 06/15/19 at 07:39; Status DC Pantoprazole Sodium (PROTONIX VIAL for IV PUSH) 40 mg DAILYAC IVP Last administered on 06/15/19at 07:36; Start 06/14/19 at 07:30 Lidocaine/Sodium Bicarbonate (Buffered Lidocaine 1%) 3 ml STK-MED ONCE .ROUTE ; Start 06/13/19 at 13:59; Stop 06/13/19 at 14:00; Status DC Lidocaine/Sodium Bicarbonate (Buffered Lidocaine 1%) 3 ml 1X ONCE IJ Last administered on 06/13/19at 14:39; Start 06/13/19 at 14:30; Stop 06/13/19 at 14:32; Status DC Amino Acids/ Electrolytes/ Dextrose 1,000 ml @ 80 mls/hr [id number] IV Last administered on 06/14/19at 23:06; Start 06/14/19 at 10:30 Daptomycin 560 mg/ Sodium Chloride 50 ml @ 100 mls/hr Q48H IV ; Start 06/15/19 at 14:00 Sodium Chloride 500 ml @ 500 mls/hr 1X ONCE IV Last administered on 06/14/19at 11:54; Start 06/14/19 at 11:45; Stop 06/14/19 at 12:44; Status DC Sodium Chloride 500 ml @ 500 mls/hr 1X ONCE IV Last administered on 06/14/19at 12:25; Start 06/14/19 at 11:45; Stop 06/14/19 at 12:44; Status DC Methylnaltrexone Montgomery (Relistor) 6 mg 1X ONCE SQ Last administered on 06/14/19at 14:15; Start 06/14/19 at 14:00; Stop 06/14/19 at 14:01; Status DC Norepinephrine Bitartrate 250 ml @ 17.398 mls/ hr CONT PRN IV SEE I/O RECORD Last administered on 06/15/19at 06:00; Start 06/14/19 at 14:30 Propofol 20 ml @ As Directed STK-MED ONCE IV ; Start 06/14/19 at 16:17; Stop 06/14/19 at 16:17; Status DC Dexamethasone Sodium Phosphate (Decadron) 4 mg STK-MED ONCE .ROUTE ; Start 06/14/19 at 16:17; Stop 06/14/19 at 16:17; Status DC Famotidine (Pepcid Vial) 20 mg STK-MED ONCE .ROUTE ; Start 06/14/19 at 16:17; Stop 06/14/19 at 16:17; Status DC Lidocaine HCl (Lidocaine Pf 2% Vial) 5 ml STK-MED ONCE .ROUTE ; Start 06/14/19 at 16:17; Stop 06/14/19 at 16:17; Status DC Ondansetron HCl (Zofran) 4 mg STK-MED ONCE .ROUTE ; Start 06/14/19 at 16:17; Stop 06/14/19 at 16:17; Status DC Succinylcholine Chloride (Anectine) 200 mg STK-MED ONCE .ROUTE ; Start 06/14/19 at 16:17; Stop 06/14/19 at 16:17; Status DC Fentanyl Citrate (Fentanyl 2ml Vial) 100 mcg STK-MED ONCE .ROUTE ; Start 06/14/19 at 16:17; Stop 06/14/19 at 16:17; Status DC Rocuronium [place] (Zemuron) 50 mg STK-MED ONCE .ROUTE ; Start 06/14/19 at 16:32; Stop 06/14/19 at 16:32; Status DC Ketamine HCl (Ketamine) 50 mg STK-MED ONCE .ROUTE ; Start 06/14/19 at 17:03; Stop 06/14/19 at 17:03; Status DC Phenylephrine HCl (PHENYLEPHRINE in 0.9% NACL PF) 1 mg STK-MED ONCE IV ; Start 06/14/19 at 17:03; Stop 06/14/19 at 17:04; Status DC Bupivacaine HCl/ Epinephrine Bitart (Sensorcaine-Epi 0.25%-1:[id number] Mpf) 30 ml 1X ONCE INJ ; Start 06/14/19 at 17:45; Stop 06/14/19 at 17:46; Status Cancel Clindamycin Phosphate 50 ml @ As Directed STK-MED ONCE IV ; Start 06/14/19 at 18:07; Stop 06/14/19 at 18:07; Status DC Albumin Human 500 ml @ As Directed STK-MED ONCE IV ; Start 06/14/19 at 18:10; Stop 06/14/19 at 18:11; Status DC Albumin Human 500 ml @ 125 mls/hr 1X ONCE IV Last administered on 06/14/19at 20:00; Start 06/14/19 at 20:00; Stop 06/14/19 at 23:59; Status DC Fentanyl Citrate 30 ml @ 0 mls/hr CONT PRN IV SEE PROTOCOL Last administered on 06/15/19at 08:40; Start 06/14/19 at 20:00 Propofol 100 ml @ 0 mls/hr CONT PRN IV SEE PROTOCOL Last administered on 06/15/19at 10:33; Start 06/14/19 at 20:00 Ephedrine Sulfate (ePHEDrine PF IN SALINE SYRINGE) 50 mg STK-MED ONCE IV ; Start 06/14/19 at 19:21; Stop 06/14/19 at 19:21; Status DC Sodium Chloride 1,000 ml @ 125 mls/hr Q8H IV Last administered on 06/15/19at 07:36; Start 06/15/19 at 06:00 Sodium Bicarbonate 50 meq/Sodium Chloride 1,050 ml @ 125 mls/hr 1X ONCE IV Last administered on 06/14/19at 22:34; Start 06/14/19 at 23:00; Stop 06/15/19 at 07:23; Status DC Meropenem 1 gm/ Sodium Chloride 100 ml @ 200 mls/hr DAILY IV Last administered on 06/15/19at 09:14; Start 06/15/19 at 09:00 Sodium Chloride 1,000 ml @ 1,000 mls/hr 1X ONCE IV Last administered on 06/15/19at 09:14; Start 06/15/19 at 09:00; Stop 06/15/19 at 09:59; Status DC Sodium Bicarbonate 50 meq/Sodium Chloride 1,050 ml @ 125 mls/hr Q8H24M IV Last administered on 06/15/19at 10:25; Start 06/15/19 at 10:15 Heparin Sodium (Porcine) (Heparin Sodium) 10,000 unit STK-MED ONCE .ROUTE ; Start 06/15/19 at 10:18; Stop 06/15/19 at 10:19; Status DC Lidocaine/Sodium Bicarbonate (Buffered Lidocaine 1%) 3 ml STK-MED ONCE .ROUTE ; Start 06/15/19 at 10:19; Stop 06/15/19 at 10:19; Status DC Lidocaine/Sodium Bicarbonate (Buffered Lidocaine 1%) 3 ml 1X ONCE INJ ; Start 06/15/19 at 11:00; Stop 06/15/19 at 11:01; Status DC Heparin Sodium (Porcine) (Heparin Sodium) 2,600 unit 1X ONCE INT CAT ; Start 06/15/19 at 11:00; Stop 06/15/19 at 11:01; Status DC Info (Tpn Per Pharmacy) 1 each PRN DAILY PRN MC SEE COMMENTS; Start 06/15/19 at 11:30 Active Scripts Active Reported Foltx Tablet (B12/Levomefolate Calcium/B-6) 1 Each Tablet 1 Each PO AFTRNOON Testosterone Cypionate 200 Mg/1 Ml Vial 1 Ml IM Q2WKS Novolog Mix 70-30 Flexpen Syrn (Insuln Asp Prt/Insulin Aspart) 100 Unit/1 Ml Insuln.pen 1 Unit SQ BIDACBL Lantus Solostar (Insulin Glargine,Hum.rec.anlog) 100 Unit/1 Ml Insuln.pen 30 Unit SQ QHS Nifedipine Er (Nifedipine) 60 Mg Tab.er.24 1 Tab PO DAILY Morphine Sulfate Er (Morphine Sulfate) 60 Mg Tablet.er 1 Tab PO BID Furosemide 40 Mg Tablet 40 Mg PO DAILY Finasteride 5 Mg Tablet 1 Tab PO DAILY Simvastatin 40 Mg Tablet 1 Tab PO QHS Metoprolol Succinate ( Xl ) (Metoprolol Succinate) 200 Mg Tab.er.24h 1 Tab PO DAILY Levothyroxine Sodium 175 Mcg Tablet 1 Tab PO DAILY Losartan-Hctz 100-12.5 Mg Tab (Losartan/Hydrochlorothiazide) 1 Each Tablet 1 Tab PO DAILY Vitals/I & O Vital Sign - Last 24 Hours 06/14/19 06/14/19 06/14/19 06/14/19 11:54 12:15 12:39 14:00 Pulse 77 Resp 19 20 20 B/P (MAP) 91/32 (51) Pulse Ox 91 96 96 O2 Delivery Room Air Room Air Room Air Room Air 06/14/19 06/14/19 06/14/19 06/14/19 14:00 14:15 14:30 14:45 Pulse 82 82 82 80 B/P (MAP) 68/40 (49) 70/38 (49) 64/27 (39) 81/33 (49) Pulse Ox 95 93 95 93 O2 Delivery Room Air Room Air Room Air Room Air 06/14/19 06/14/19 06/14/19 06/14/19 15:00 15:15 15:30 15:45 Pulse 78 82 82 84 B/P (MAP) 92/36 (54) 79/40 (53) 82/49 (60) Pulse Ox 93 94 94 91 O2 Delivery Room Air Room Air Room Air Room Air 06/14/19 06/14/19 06/14/19 06/14/19 16:00 16:00 16:15 16:30 Temp 98.2 98.2 Pulse 84 82 84 B/P (MAP) 103/52 (69) 80/46 (57) 86/42 (57) Pulse Ox 94 94 93 O2 Delivery Room Air Room Air Room Air Room Air 06/14/19 06/14/19 06/14/19 06/14/19 16:45 19:10 19:25 19:40 Temp 98.5 98.5 Pulse 84 96 96 104 Resp 16 20 16 B/P (MAP) 95/50 (65) 93/48 138/42 144/43 Pulse Ox 91 97 98 99 O2 Delivery Room Air Ventilator Ventilator Ventilator 06/14/19 06/14/19 06/14/19 06/14/19 19:54 19:55 20:00 20:00 Temp 98.5 98.5 Pulse 96 94 94 Resp 16 16 B/P (MAP) 86/ 136/48 130/46 (74) 130/46 (74) Pulse Ox 97 99 O2 Delivery Ventilator 06/14/19 06/14/19 06/14/19 06/14/19 20:00 20:00 20:30 21:00 Pulse 90 88 Resp 16 14 B/P (MAP) 112/44 (66) 110/42 (64) Pulse Ox 99 99 99 O2 Delivery Mechanical Ventilator Room Air Ventilator Ventilator O2 Flow Rate 2.0 06/14/19 06/14/19 06/14/19 06/14/19 21:11 21:30 21:30 22:00 Pulse 90 90 Resp 16 14 14 B/P (MAP) 126/44 (71) 120/42 (68) Pulse Ox 99 99 96 99 O2 Delivery Ventilator Ventilator Ventilator Ventilator 06/14/19 06/14/19 06/15/19 06/15/19 22:30 23:00 00:00 00:00 Pulse 94 92 Resp 14 B/P (MAP) 120/44 (69) 110/44 (66) Pulse Ox 99 99 O2 Delivery Ventilator Ventilator Mechanical Ventilator 06/15/19 06/15/19 06/15/19 06/15/19 00:00 00:03 01:00 01:15 Temp 99.0 99.0 Pulse 92 100 Resp 14 14 14 B/P (MAP) 110/44 (66) 126/52 (76) Pulse Ox 99 99 99 99 O2 Delivery Ventilator Ventilator Ventilator Ventilator 06/15/19 06/15/19 06/15/19 06/15/19 02:00 02:26 03:00 04:00 Pulse 100 96 Resp 14 14 B/P (MAP) 101/52 (68) 113/54 (73) Pulse Ox 98 98 98 O2 Delivery Ventilator Ventilator Ventilator Mechanical Ventilator 06/15/19 06/15/19 06/15/19 06/15/19 04:00 04:00 04:49 05:00 Temp 98.7 98.7 Pulse 92 92 92 Resp 14 14 B/P (MAP) 102/50 (67) 102/50 (67) 112/52 (72) Pulse Ox 97 98 97 O2 Delivery Ventilator Ventilator Ventilator 06/15/19 06/15/19 06/15/19 06/15/19 05:57 05:57 06:00 07:00 Pulse 62 92 Resp 14 16 14 B/P (MAP) 119/74 (89) 106/44 (64) Pulse Ox 97 98 95 95 O2 Delivery Ventilator Ventilator Ventilator Ventilator 06/15/19 06/15/19 06/15/19 06/15/19 07:35 08:00 08:00 09:00 Pulse 90 92 B/P (MAP) 112/44 (66) 112/38 (62) Pulse Ox 98 95 95 O2 Delivery Ventilator Mechanical Ventilator Ventilator Ventilator 06/15/19 06/15/19 06/15/19 09:22 10:00 11:00 Pulse 92 92 B/P (MAP) 106/40 (62) 84/34 (51) Pulse Ox 97 97 96 O2 Delivery Ventilator Ventilator Ventilator Intake and Output 06/14/19 06/14/19 06/15/19 15:00 23:00 07:00 Intake Total 0 ml 850 ml 3592 ml Output Total 100 ml 120 ml 1128 ml Balance -100 ml 730 ml 2464 ml Problem List DU- Hg stable, on PPI therapy Abd distention-with sepsis, 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
--- NOTE | 2019-06-15 12:00 | RAD ---
Portable chest x-ray compared to similar examination dated June 15, 2019 at 5:51 AM for status post line placement. FINDINGS: Lung volumes are markedly reduced. Vascular congestion appears unchanged or perhaps slightly worse. New temporary dialysis catheter is present on the right, with no pneumothorax. Median sternal wires are seen. Enteric tube is unchanged. IMPRESSION: 1. Low lung volumes with central vascular congestion, possibly worse. 2. New temporary hemodialysis catheter is suitable for use. Electronically signed by: Anson Oconnor MD (06/15/2019 11:57 AM) [id number]
[2019-06-15] MEDS: TPN PER PHARMACY MC PRN ×2 (12:47→13:04)
--- NOTE | 2019-06-15 12:49 | NUR ---
Pharmacy TPN Dosing Note S: ROSLYN MOORE is a 78 year old M Currently receiving Central Continuous TPN started 06/15/19 B:Pertinent PMH: Duodenal ulcer, NPO Height: 6 feet, 0 inches Weight: 92.8 kg Current diet: NPO LABS: Sodium: 136 Potassium: 4.6 Chloride: 104 Calcium: 6.7 Corrected Calcium: 8.54 Magnesium: 2.4 CO2: 17 SCr: 4.2 Glucose: 211 Albumin: 1.7 AST: 30 ALT: 16 TPN FORMULA: TPN TYPE: Central Continuous AMINO ACIDS: 60 gm DEXTROSE: 195 gm LIPIDS: 20 gm SODIUM CHLORIDE: 90 mEq POTASSIUM CHLORIDE: 50 mEq MAGNESIUM: 10 mEq CALCIUM: 10 mEq MULTIPLE VITAMIN: 10 ml TRACE ELEMENTS: 1 ml TPN PLAN: Initiate house formula TPN without phos. Labs in AM. R: Begin TPN Will monitor electrolytes, glucose, and tolerance to TPN. Kellee Alicia RPH, 06/15/19 1249 Addendum: 06/15/19 at 1305 by Kellee Alicia RPH PHA No lipids in TPN d/t lipids delivered via propofol.
--- NOTE | 2019-06-15 13:46 | RAD ---
Procedure: Temporary hemodialysis catheter placement at the bedside. Clinical Indication: 78-year-old requiring hemodialysis Sedation: Local anesthesia Antibiotics: None Fluoro Time: Not applicable Contrast: None Sterility: All elements of maximal sterile barrier technique including the use of a cap, mask, sterile gown, sterile gloves, large sterile sheet, appropriate hand hygiene, and 2% chlorhexidine for cutaneous antisepsis (or acceptable alternative antiseptic per current guidelines) were followed for this procedure. Consent: The procedure was explained in its entirety to the patient or the patients designated senior human resources representative by a member of the treatment team, including a discussion of the risks, benefits and commonly accepted alternatives to the procedure, as well as the expected consequences of no therapy whatsoever. Discussion of the risks included, but was not limited to, those that are most frequent and those that are rare but possibly severe or life-threatening, as well as the possibility of unforeseen complications. Technique and Findings: Following informed consent, the patient was prepped and draped in the usual sterile fashion. Ultrasound interrogation of the right neck revealed patency and compressibility of the right internal jugular vein. A 21-gauge micropuncture needle was used to gain access to this vein after 1% Lidocaine was used to achieve local anesthesia. A hardcopy ultrasound image was recorded. The needle was exchanged over a wire for serial dilators followed by a 20 cm Schon temporary hemodialysis catheter which was deployed in the expected location of the mid right atrium. The catheter flow rates were assessed manually and found to be excellent. The catheter was then flushed, packed with Heparin, capped, and sutured to the skin. Chest x-ray was then obtained to assess line position. Complications: No immediate Impression: 1. Ultrasound guided placement of a temporary hemodialysis catheter which exhibits excellent manual flow rates as described.
[2019-06-15] MEDS ORDERED: IV NORMAL SALINE 1000ML BAG 1,000 ML IV PRN ×2 (13:49)
[2019-06-15] MEDS: DAPTOmycin (GENERIC) IVPB 560 MG in IV NORMAL SALINE 50ML 50 ML IV SCH (13:57)
[2019-06-15] MEDS ORDERED: DIALYSIS PATIENT. MC PRN ×2 (14:00)
[2019-06-15] MEDS ORDERED: ALBUMIN HUMAN 25% 200 ML IV PRN (14:00)
[2019-06-15] MEDS: VASOPRESSIN 40 UNIT in IV DEXTROSE 5% 100ML 100 ML IV PRN (14:48)
[2019-06-15] MEDS: MIDAZOLAM 100mg/100ml NS BAG 100 ML IV PRN ×2 (15:07→21:21)
[2019-06-15] MEDS: SIMVASTATIN 40 MG TABLET. PO SCH (21:00)
[2019-06-15] MEDS ORDERED: [UNRECOGNIZED DRUG - OTHER] IV SCH ×8 (22:00)
[2019-06-15] MEDS ORDERED: AMINO ACID IV SCH ×8 (22:00)
[2019-06-15] MEDS ORDERED: TOTAL PARENTERAL NUTRITION IV SCH ×8 (22:00)
[2019-06-15] MEDS ORDERED: DEXTROSE 70% IV SCH ×8 (22:00)
[2019-06-16] VITALS (42 sets, daily range): BP systolic 84–178; BP diastolic 32–68
[2019-06-16] MEDS: SODIUM BICARBONATE VIAL 50 MEQ in IV 1/2 NORMAL SALINE 1,000 ML IV SCH ×2 (00:33→09:25)
[2019-06-16] MEDS: NOREPINEPHRIN 8MG/250ML PREMIX 250 ML IV PRN ×4 (01:34→21:54)
[2019-06-16] MEDS: IV 1/2 NORMAL SALINE 1,000 ML IV SCH ×3 (05:36→17:57)
[2019-06-16] MEDS: LEVOTHYROXINE 175 MCG TABLET PO SCH (05:36)
[2019-06-16 06:40] LABS: BASO % 0 % (0-3); EOS # 0.1 x10^3/uL (0.0-0.7); EOS % 0 % (0-3); HEMATOCRIT 28.8 % (39.0-53.0); HEMOGLOBIN 9.7 g/dL (13.0-17.5); LYMPH % 5 % (24-48); MEAN CORPUSCULAR HEMOGLOBIN 32 pg (25-35); MEAN CORPUSCULAR HGB CONC 34 g/dL (31-37); MEAN CORPUSCULAR VOLUME 94 fL (79-100); MONO # 1.3 x10^3/uL (0.0-1.1); MONO % 7 % (0-9); NEUT % 88 % (31-73); PLATELET COUNT 158 x10^3/uL (140-400); RED BLOOD COUNT 3.07 x10^6/uL (4.30-5.70); RED CELL DISTRIBUTION WIDTH 14.3 % (11.5-14.5); WHITE BLOOD COUNT 19.4 x10^3/uL (4.0-11.0)
[2019-06-16] MEDS: MORPHINE ER 30 MG TABLET.ER PO SCH ×2 (06:53→21:00)
[2019-06-16 08:14] LABS: ALBUMIN 1.2 g/dL (3.4-5.0); ALBUMIN/GLOBULIN RATIO 0.4 (1.0-1.7); CALCIUM 6.4 mg/dL (8.5-10.1); CREATININE 3.5 mg/dL (0.7-1.3); GFR 17.1; POTASSIUM 3.8 mmol/L (3.5-5.1); TOTAL BILIRUBIN 0.5 mg/dL (0.2-1.0); TOTAL PROTEIN 4.2 g/dL (6.4-8.2)
[2019-06-16] MEDS: VANCOMYCIN 125 MG/2.5 ML ORAL SOLUTION. PO SCH ×4 (08:17→22:41)
[2019-06-16] MEDS: VITAMIN B COMPLEX TABLET. PO SCH (08:18)
[2019-06-16] MEDS: FINASTERIDE 5 MG TABLET. PO SCH (08:18)
[2019-06-16] MEDS: PANTOPRAZOLE IV PUSH 40 MG VIAL. IVP SCH (08:20)
[2019-06-16] MEDS: INSULIN LISPRO 300 UNITS/3 ML VIAL. SQ SCH ×3 (08:26→18:00)
[2019-06-16] MEDS ORDERED: MAGNESIUM SULFATE 2GM 50 ML IV ONE (08:30)
--- NOTE | 2019-06-16 09:06 | PDOC ---
Infectious Disease Note Subjective Subjective Remains intubated Sedated Pressors No fevers + diarrhea TPN ROS ROS unobtainable Vital Sign Vital Signs Vital Signs Date Time Temp Pulse Resp B/P (MAP) Pulse Ox O2 Delivery O2 Flow Rate FiO2 06/16/19 06:00 87 12 119/34 (62) 98 Ventilator 06/16/19 04:00 98.1 98.1 06/16/19 03:21 2.0 Physical Exam PHYSICAL EXAM GENERAL: Orally intubated and sedated HEENT: Pupils are equal, NGT, ETT NECK: Supple LUNGS: Course HEART: S1, S2. ABDOMEN: Obese, soft + BS, + rectal tube : Bledsoe EXTREMITIES: No clubbing or cyanosis with some trace lower extremity edema. He has a right hand deformity. His left shoulder is dressed. 2 plus edema. Left heel protector. SKIN: Without signs of any generalized rash. NEUROLOGIC: Sedated Temp HDC (06/15) [facility] Left art-line Labs Lab Laboratory Tests Test 06/15/19 09:57 06/16/19 06:00 06/16/19 07:25 Glucose (Fingerstick) 211 mg/dL (70-99) White Blood Count 19.4 x10^3/uL (4.0-11.0) Red Blood Count 3.07 x10^6/uL (4.30-5.70) Hemoglobin 9.7 g/dL (13.0-17.5) Hematocrit 28.8 % (39.0-53.0) Mean Corpuscular Volume 94 fL (79-100) Mean Corpuscular Hemoglobin 32 pg (25-35) Mean Corpuscular Hemoglobin Concent 34 g/dL (31-37) Red Cell Distribution Width 14.3 % (11.5-14.5) Platelet Count 158 x10^3/uL (140-400) Neutrophils (%) (Auto) 88 % (31-73) Lymphocytes (%) (Auto) 5 % (24-48) Monocytes (%) (Auto) 7 % (0-9) Eosinophils (%) (Auto) 0 % (0-3) Basophils (%) (Auto) 0 % (0-3) Neutrophils # (Auto) 17.0 x10^3/uL (1.8-7.7) Lymphocytes # (Auto) 1.0 x10^3/uL (1.0-4.8) Monocytes # (Auto) 1.3 x10^3/uL (0.0-1.1) Eosinophils # (Auto) 0.1 x10^3/uL (0.0-0.7) Basophils # (Auto) 0.0 x10^3/uL (0.0-0.2) Sodium Level 138 mmol/L (136-145) Potassium Level 3.8 mmol/L (3.5-5.1) Chloride Level 102 mmol/L (98-107) Carbon Dioxide Level 24 mmol/L (21-32) Anion Gap 12 (6-14) Blood Urea Nitrogen 74 mg/dL (8-26) Creatinine 3.5 mg/dL (0.7-1.3) Estimated GFR (Cockcroft-Gault) 17.1 BUN/Creatinine Ratio 21 (6-20) Glucose Level 265 mg/dL (70-99) Calcium Level 6.4 mg/dL (8.5-10.1) Phosphorus Level 6.0 mg/dL (2.6-4.7) Magnesium Level 2.0 mg/dL (1.8-2.4) Total Bilirubin 0.5 mg/dL (0.2-1.0) Aspartate Amino Transf (AST/SGOT) 31 U/L (15-37) Alanine Aminotransferase (ALT/SGPT) 14 U/L (16-63) Alkaline Phosphatase 164 U/L (46-116) Total Protein 4.2 g/dL (6.4-8.2) Albumin 1.2 g/dL (3.4-5.0) Albumin/Globulin Ratio 0.4 (1.0-1.7) Micro 06/13/19 Blood Culture - Preliminary, Resulted NO GROWTH AFTER 2 DAYS Left shoulder AEROBIC RES 1 Preliminary Beta hemolytic Streptococcus, group B AFB CULTURE GRAM STAIN Final Negative Objective Assessment LUE abscess s/p 10 ml removal 06/13. S/p Left shoulder open incision and drainage with arthrotomy, debridement of bone and bone cement, and joint irrigation 06/14 group B strep RENATA requiring HD Hypotension - currently on 19 of Levophed Post op resp failure - intubated - Pulm following Leukocytosis - worse but s/p Dexamethasone 06/14 preop and post op reactive C. diff positive, 06/14 PCN allergy - Hives - believes has tolerated Cephalosporins per his ? [place] syndrome - GI following + BM yesterday rectal tube in CAD - Cardiology following H/o MRSA H/o Group B strep sepsis Erosive Gastritis s/p EGD 06/08 Urinary retention - Bledsoe placed 06/12 Fractures of 2 superior mediastinal wires Plan Plan of Care Cont Daptomycin Q 48 adjusted dose 06/14 Cont Meropenem renally dosed Cont Flagyl PO vanc Monitor labs/temp f/u cultures Contact isolation Critically ill D/w nursing Patient seen and examined. Chart reviewed in detail. Case discussed with REAL ESTATE PHOTOGRAPHER. Agree with above plan. LALO SCHWARZ APRN Jun 16, 2019 09:06 LUCY ERWIN MD Jun 16, 2019 20:18
[2019-06-16] MEDS ORDERED: DIALYSIS PATIENT. MC PRN ×2 (09:15)
[2019-06-16 09:16] LABS: BASE EXCESS ABG 0 mmol/L (-3-3); HCO3 ABG 26 mmol/L (21-28); PCO2 ABG 47 mmHg (35-46); PO2 ABG 57 mmHg (65-108); SAT O2 ABG 88 % (92-99)
--- NOTE | 2019-06-16 09:51 | PDOC ---
SUBJECTIVE ROS seen on HD , stable OBJECTIVE Vital Signs Vital Signs Date Time Temp Pulse Resp B/P (MAP) Pulse Ox O2 Delivery O2 Flow Rate FiO2 06/16/19 09:26 Ventilator 06/16/19 09:00 88 12 116/41 (66) 91 06/16/19 08:00 100.1 100.1 06/16/19 03:21 2.0 I & 0 Intake and Output 06/16/19 07:01 Intake Total 5257.72 ml Output Total 572 ml Balance 4685.72 ml IV Total 5257.72 ml Output Urine Total 72 ml Stool Total 500 ml Drainage Total 0 ml PHYSICAL EXAM Physical Exam GENERAL: Orally intubated and sedated HEENT: NGT, ETT NECK: Supple LUNGS: CTA ant HEART: S1, S2. ABDOMEN: soft + BS, + rectal tube : Bledsoe EXTREMITIES: No clubbing or cyanosis with some trace lower extremity edema. He has a right hand deformity. His left shoulder is dressed. 2 plus edema. Left heel protector. SKIN: No rash. NEUROLOGIC: Sedated Temp HDC (06/15) DIAGNOSIS/ASSESSMENT Assessment & Plan [id number] UP TO 4.3 Initiated on HD 06/15 , seen on HD, tolerating well Continue As ordered, Jamie Duarte Metabolic acidosis- resolved On HD CKD STAGE 3- Cr Prob 1.5 Hypotension- On Pressors BP meds held Urinary retention- Flomax on Hold due to Low BP LUE abscess s/p Left shoulder open incision and drainage with arthrotomy, debridement of bone and bone cement, and joint irrigation 06/14 group B strep Post op resp failure - intubated - Pulm following C. diff positive, 06/14 Erosive Gastritis s/p EGD 06/08 CAD - Cardiology following COMMENT/RELEVANT DATA Meds Current Medications Medications (Trade) Dose Ordered Sig/Lauren Start Time Stop Time Status Last Admin Dose Admin Albumin Human 200 ml @ 200 mls/hr 1X PRN PRN 06/15/19 14:00 06/15/19 19:59 DC Amino Acids/ Electrolytes/ Dextrose 1,000 ml @ 80 mls/hr [id number] 06/14/19 10:30 06/15/19 21:59 DC 06/15/19 16:23 80 MLS/HR Bisacodyl (Dulcolax Supp) 10 mg 1X ONCE 06/07/19 17:45 06/07/19 17:46 DC 06/07/19 21:40 10 MG Bisacodyl (Dulcolax Tab) 5 mg PRN DAILY PRN 06/11/19 15:45 Bupivacaine HCl/ Epinephrine Bitart (Sensorcaine-Epi 0.25%-1:818281 Mpf) 30 ml 1X ONCE 06/14/19 17:45 06/14/19 17:46 Cancel Clindamycin Phosphate 50 ml @ As Directed STK-MED ONCE 06/14/19 18:07 06/14/19 18:07 DC Daptomycin 560 mg/ Sodium Chloride 50 ml @ 100 mls/hr Q48H 06/15/19 14:00 06/15/19 13:58 100 MLS/HR Dexamethasone Sodium Phosphate (Decadron) 4 mg STK-MED ONCE 06/14/19 16:17 06/14/19 16:17 DC Dextrose 250 ml PRN Q15MIN PRN 06/09/19 11:45 06/09/19 15:19 DC Dextrose (Dextrose 50%-Water Syringe) 12.5 gm PRN Q15MIN PRN 06/09/19 11:45 Ephedrine Sulfate (ePHEDrine PF IN SALINE SYRINGE) 50 mg STK-MED ONCE 06/14/19 19:21 06/14/19 19:21 DC Famotidine (Pepcid Vial) 20 mg STK-MED ONCE 06/14/19 16:17 06/14/19 16:17 DC Fentanyl Citrate 30 ml @ 0 mls/hr CONT PRN 06/14/19 20:00 06/16/19 09:26 3.75 MLS/HR Fentanyl Citrate (Fentanyl 2ml Vial) 100 mcg STK-MED ONCE 06/14/19 16:17 06/14/19 16:17 DC Finasteride (Proscar) 5 mg DAILY 06/12/19 12:00 06/13/19 09:39 DC Furosemide (Lasix) 40 mg DAILY 06/08/19 12:00 06/14/19 13:01 DC 06/12/19 08:36 40 MG Heparin Sodium (Porcine) (Heparin Sodium) 2,600 unit 1X ONCE 06/15/19 11:00 06/15/19 11:01 DC Hydromorphone HCl (Dilaudid) 2 mg PRN Q3HRS PRN 06/07/19 22:00 06/14/19 23:55 DC 06/14/19 12:39 2 MG Info (PHARMACY MONITORING -- do not chart) 1 each PRN DAILY PRN 06/16/19 09:15 UNV Info (Tpn Per Pharmacy) 1 each PRN DAILY PRN 06/15/19 11:30 06/15/19 13:05 1 EACH Insulin Glargine (Lantus Syringe) 30 unit QHS 06/08/19 21:00 06/15/19 21:24 30 UNIT Insulin Human Lispro (HumaLOG) 0-9 UNITS TIDWMEALS 06/09/19 12:00 06/16/19 08:27 5 UNITS Ketamine HCl (Ketamine) 50 mg STK-MED ONCE 06/14/19 17:03 06/14/19 17:03 DC Levothyroxine Sodium (Synthroid) 175 mcg DAILY06 06/08/19 12:00 06/15/19 07:36 175 MCG Lidocaine HCl (Lidocaine Pf 2% Vial) 5 ml STK-MED ONCE 06/14/19 16:17 06/14/19 16:17 DC Lidocaine/Sodium Bicarbonate (Buffered Lidocaine 1%) 3 ml 1X ONCE 06/15/19 11:00 06/15/19 11:01 DC Lorazepam (Ativan) 0.5 mg PRN Q6HRS PRN 06/07/19 18:00 06/07/19 18:14 DC Losartan Potassium (Cozaar) 100 mg DAILY 06/08/19 12:00 06/14/19 13:01 DC 06/12/19 08:36 100 MG Magnesium Sulfate 50 ml @ 25 mls/hr 1X ONCE 06/16/19 08:30 06/16/19 10:29 06/16/19 08:27 25 MLS/HR Meropenem 1 gm/ Sodium Chloride 100 ml @ 200 mls/hr DAILY 06/15/19 09:00 06/15/19 09:14 200 MLS/HR Methylnaltrexone Leiter (Relistor) 6 mg 1X ONCE 06/14/19 14:00 06/14/19 14:01 DC 06/14/19 14:15 6 MG Metoprolol Succinate (Toprol Xl) 200 mg DAILY 06/08/19 12:00 06/14/19 13:01 DC 06/12/19 08:36 200 MG Metronidazole 100 ml @ 100 mls/hr Q8HRS 06/15/19 17:30 06/16/19 05:09 100 MLS/HR Midazolam HCl 100 ml @ 0 mls/hr CONT PRN 06/15/19 13:00 06/15/19 21:24 7 MLS/HR Morphine Sulfate (Ms Contin) 60 mg BID 06/08/19 12:00 06/15/19 07:36 60 MG Nicotine (Nicoderm Cq 21mg) 1 patch PRN DAILY PRN 06/07/19 18:00 06/07/19 18:14 DC Nifedipine (Procardia Xl) 60 mg DAILY 06/08/19 12:00 06/14/19 13:01 DC 06/12/19 08:36 60 MG Non-Formulary Medication (Insuln Asp Prt/ Insulin Aspart (Novolog Mix 70-30 Flexpen Syrn)) 1 unit BIDACBL 06/08/19 11:30 06/08/19 19:34 DC Norepinephrine Bitartrate 250 ml @ 17.398 mls/ hr CONT PRN 06/14/19 14:30 06/16/19 05:35 48.714 MLS/HR Ondansetron HCl (Zofran) 4 mg STK-MED ONCE 06/14/19 16:17 06/14/19 16:17 DC Pantoprazole Sodium (PROTONIX VIAL for IV PUSH) 40 mg DAILYAC 06/14/19 07:30 06/16/19 08:27 40 MG Pantoprazole Sodium (Protonix) 40 mg DAILYAC 06/12/19 07:30 06/13/19 13:27 DC 06/12/19 08:36 40 MG Phenylephrine HCl (PHENYLEPHRINE in 0.9% NACL PF) 1 mg STK-MED ONCE 06/14/19 17:03 06/14/19 17:04 DC Polyethylene Glycol (miraLAX PACKET) 17 gm PRN DAILY PRN 06/11/19 15:45 Propofol 100 ml @ 0 mls/hr CONT PRN 06/14/19 20:00 06/15/19 10:33 8.351 MLS/HR Ringer's Solution 1,000 ml @ 75 mls/hr [id number] 06/08/19 09:15 06/09/19 08:01 DC 06/08/19 14:01 75 MLS/HR Rocuronium Leiter (Zemuron) 50 mg STK-MED ONCE 06/14/19 16:32 06/14/19 16:32 DC Simvastatin (Zocor) 40 mg QHS 06/08/19 21:00 06/12/19 21:26 40 MG Sodium Bicarbonate 50 meq/Sodium Chloride 1,050 ml @ 125 mls/hr Q8H24M 06/15/19 10:15 06/16/19 09:26 125 MLS/HR Sodium Chloride 1,000 ml @ 400 mls/hr Q2H30M PRN 06/15/19 13:49 06/16/19 01:48 DC Sodium Chloride 90 meq/Potassium Chloride 50 meq/ Magnesium Sulfate 10 meq/Calcium Gluconate 10 meq/ Multivitamins 10 ml/Chromium/ Copper/Manganese/ Seleni/Zn 1 ml/ Total Parenteral Nutrition/Amino Acids/Dextrose 1,512 ml @ 63 mls/hr TPN CONT 06/15/19 22:00 06/16/19 21:59 06/16/19 00:19 63 MLS/HR Succinylcholine Chloride (Anectine) 200 mg STK-MED ONCE 06/14/19 16:17 06/14/19 16:17 DC Tamsulosin HCl (Flomax) 0.4 mg QHS 06/12/19 21:00 06/14/19 13:01 DC 06/12/19 21:26 0.4 MG Testosterone Cypionate (Depo-Testosterone) 200 mg Q2WKS 06/22/19 09:00 Vancomycin HCl (Vancomycin Oral Solution) 125 mg [id number] 06/16/19 09:00 06/16/19 08:27 125 MG Vasopressin 40 unit/Dextrose 102 ml @ 6 mls/hr CONT PRN 06/15/19 14:30 06/15/19 14:48 6 MLS/HR Vitamin B Complex (Bud B) 1 tab DAILY 06/08/19 12:00 06/12/19 08:36 1 TAB Lab Laboratory Tests Test 06/15/19 09:57 06/16/19 06:00 06/16/19 07:25 Glucose (Fingerstick) 211 mg/dL (70-99) White Blood Count 19.4 x10^3/uL (4.0-11.0) Red Blood Count 3.07 x10^6/uL (4.30-5.70) Hemoglobin 9.7 g/dL (13.0-17.5) Hematocrit 28.8 % (39.0-53.0) Mean Corpuscular Volume 94 fL (79-100) Mean Corpuscular Hemoglobin 32 pg (25-35) Mean Corpuscular Hemoglobin Concent 34 g/dL (31-37) Red Cell Distribution Width 14.3 % (11.5-14.5) Platelet Count 158 x10^3/uL (140-400) Neutrophils (%) (Auto) 88 % (31-73) Lymphocytes (%) (Auto) 5 % (24-48) Monocytes (%) (Auto) 7 % (0-9) Eosinophils (%) (Auto) 0 % (0-3) Basophils (%) (Auto) 0 % (0-3) Neutrophils # (Auto) 17.0 x10^3/uL (1.8-7.7) Lymphocytes # (Auto) 1.0 x10^3/uL (1.0-4.8) Monocytes # (Auto) 1.3 x10^3/uL (0.0-1.1) Eosinophils # (Auto) 0.1 x10^3/uL (0.0-0.7) Basophils # (Auto) 0.0 x10^3/uL (0.0-0.2) Sodium Level 138 mmol/L (136-145) Potassium Level 3.8 mmol/L (3.5-5.1) Chloride Level 102 mmol/L (98-107) Carbon Dioxide Level 24 mmol/L (21-32) Anion Gap 12 (6-14) Blood Urea Nitrogen 74 mg/dL (8-26) Creatinine 3.5 mg/dL (0.7-1.3) Estimated GFR (Cockcroft-Gault) 17.1 BUN/Creatinine Ratio 21 (6-20) Glucose Level 265 mg/dL (70-99) Calcium Level 6.4 mg/dL (8.5-10.1) Phosphorus Level 6.0 mg/dL (2.6-4.7) Magnesium Level 2.0 mg/dL (1.8-2.4) Total Bilirubin 0.5 mg/dL (0.2-1.0) Aspartate Amino Transf (AST/SGOT) 31 U/L (15-37) Alanine Aminotransferase (ALT/SGPT) 14 U/L (16-63) Alkaline Phosphatase 164 U/L (46-116) Total Protein 4.2 g/dL (6.4-8.2) Albumin 1.2 g/dL (3.4-5.0) Albumin/Globulin Ratio 0.4 (1.0-1.7) Results All relevant outside records, renal labs, imaging studies, telemetry/EKG's were reviewed. GUNNAR IGLESIAS MD Jun 16, 2019 09:50
--- NOTE | 2019-06-16 10:04 | PDOC ---
PULMONARY PROGRESS NOTES Subjective PT ON AC MODE S/P OR NOW ON PRESSORS UNDERGOING HD Vitals Vital Signs Date Time Temp Pulse Resp B/P (MAP) Pulse Ox O2 Delivery O2 Flow Rate FiO2 06/16/19 09:26 Ventilator 06/16/19 09:00 88 12 116/41 (66) 91 06/16/19 08:00 100.1 100.1 06/16/19 03:21 2.0 HEENT: Other (UNABLE TO ASSESS JVD SEC TO BODY HABITS) Lungs: Crackles Cardiovascular: S1, S2 Abdomen: Other (TENDER) Extremities: Other (EDEMA) Skin: Warm Labs Laboratory Tests Test 06/14/19 11:54 06/14/19 12:00 06/14/19 16:00 06/14/19 19:15 Glucose (Fingerstick) 251 mg/dL (70-99) Clostridium difficile Toxin B Gene Positive (Negative) Prothrombin Time 17.3 SEC (11.7-14.0) Prothromb Time International Ratio 1.4 (0.8-1.1) O2 Saturation 91 % (92-99) 95 % (92-99) Arterial Blood pH 7.34 (7.35-7.45) 7.25 (7.35-7.45) Arterial Blood pCO2 at Patient Temp 25 mmHg (35-46) 31 mmHg (35-46) Arterial Blood pO2 at Patient Temp 68 mmHg (65-108) 95 mmHg (65-108) Arterial Blood HCO3 13 mmol/L (21-28) 13 mmol/L (21-28) Arterial Blood Base Excess -11 mmol/L (-3-3) -13 mmol/L (-3-3) FiO2 21 50 Test 06/15/19 00:43 06/15/19 06:10 06/15/19 07:30 06/15/19 09:57 Glucose (Fingerstick) 202 mg/dL (70-99) 211 mg/dL (70-99) White Blood Count 21.5 x10^3/uL (4.0-11.0) Red Blood Count 3.49 x10^6/uL (4.30-5.70) Hemoglobin 11.0 g/dL (13.0-17.5) Hematocrit 33.1 % (39.0-53.0) Mean Corpuscular Volume 95 fL (79-100) Mean Corpuscular Hemoglobin 32 pg (25-35) Mean Corpuscular Hemoglobin Concent 33 g/dL (31-37) Red Cell Distribution Width 14.5 % (11.5-14.5) Platelet Count 316 x10^3/uL (140-400) Neutrophils (%) (Auto) 91 % (31-73) Lymphocytes (%) (Auto) 5 % (24-48) Monocytes (%) (Auto) 3 % (0-9) Eosinophils (%) (Auto) 0 % (0-3) Basophils (%) (Auto) 0 % (0-3) Neutrophils # (Auto) 19.6 x10^3/uL (1.8-7.7) Lymphocytes # (Auto) 1.1 x10^3/uL (1.0-4.8) Monocytes # (Auto) 0.7 x10^3/uL (0.0-1.1) Eosinophils # (Auto) 0.0 x10^3/uL (0.0-0.7) Basophils # (Auto) 0.0 x10^3/uL (0.0-0.2) Segmented Neutrophils % 20 % (35-66) Band Neutrophils % 50 % (0-9) Lymphocytes % 6 % (24-48) Monocytes % 2 % (0-10) Metamyelocytes % 15 % (0-0) Myelocytes % 7 % (0-0) Nucleated Red Blood Cells 1 Toxic Granulation Present Dohle Bodies Present Platelet Estimate Adequate (ADEQUATE) Acanthocytes Present Sodium Level 136 mmol/L (136-145) Potassium Level 4.6 mmol/L (3.5-5.1) Chloride Level 104 mmol/L (98-107) Carbon Dioxide Level 17 mmol/L (21-32) Anion Gap 15 (6-14) Blood Urea Nitrogen 108 mg/dL (8-26) Creatinine 4.2 mg/dL (0.7-1.3) Estimated GFR (Cockcroft-Gault) 13.8 BUN/Creatinine Ratio 26 (6-20) Glucose Level 216 mg/dL (70-99) Calcium Level 6.7 mg/dL (8.5-10.1) Phosphorus Level 8.6 mg/dL (2.6-4.7) Magnesium Level 2.4 mg/dL (1.8-2.4) Total Bilirubin 0.8 mg/dL (0.2-1.0) Aspartate Amino Transf (AST/SGOT) 30 U/L (15-37) Alanine Aminotransferase (ALT/SGPT) 16 U/L (16-63) Alkaline Phosphatase 214 U/L (46-116) Total Protein 4.9 g/dL (6.4-8.2) Albumin 1.7 g/dL (3.4-5.0) Albumin/Globulin Ratio 0.5 (1.0-1.7) Hepatitis B Surface Antigen Nonreactive (Nonreactive) Hepatitis B Surface Antibody Nonreactive O2 Saturation 94 % (92-99) Arterial Blood pH 7.29 (7.35-7.45) Arterial Blood pCO2 at Patient Temp 31 mmHg (35-46) Arterial Blood pO2 at Patient Temp 80 mmHg (65-108) Arterial Blood HCO3 15 mmol/L (21-28) Arterial Blood Base Excess -11 mmol/L (-3-3) FiO2 40 Test 06/16/19 06:00 06/16/19 07:25 White Blood Count 19.4 x10^3/uL (4.0-11.0) Red Blood Count 3.07 x10^6/uL (4.30-5.70) Hemoglobin 9.7 g/dL (13.0-17.5) Hematocrit 28.8 % (39.0-53.0) Mean Corpuscular Volume 94 fL (79-100) Mean Corpuscular Hemoglobin 32 pg (25-35) Mean Corpuscular Hemoglobin Concent 34 g/dL (31-37) Red Cell Distribution Width 14.3 % (11.5-14.5) Platelet Count 158 x10^3/uL (140-400) Neutrophils (%) (Auto) 88 % (31-73) Lymphocytes (%) (Auto) 5 % (24-48) Monocytes (%) (Auto) 7 % (0-9) Eosinophils (%) (Auto) 0 % (0-3) Basophils (%) (Auto) 0 % (0-3) Neutrophils # (Auto) 17.0 x10^3/uL (1.8-7.7) Lymphocytes # (Auto) 1.0 x10^3/uL (1.0-4.8) Monocytes # (Auto) 1.3 x10^3/uL (0.0-1.1) Eosinophils # (Auto) 0.1 x10^3/uL (0.0-0.7) Basophils # (Auto) 0.0 x10^3/uL (0.0-0.2) Sodium Level 138 mmol/L (136-145) Potassium Level 3.8 mmol/L (3.5-5.1) Chloride Level 102 mmol/L (98-107) Carbon Dioxide Level 24 mmol/L (21-32) Anion Gap 12 (6-14) Blood Urea Nitrogen 74 mg/dL (8-26) Creatinine 3.5 mg/dL (0.7-1.3) Estimated GFR (Cockcroft-Gault) 17.1 BUN/Creatinine Ratio 21 (6-20) Glucose Level 265 mg/dL (70-99) Calcium Level 6.4 mg/dL (8.5-10.1) Phosphorus Level 6.0 mg/dL (2.6-4.7) Magnesium Level 2.0 mg/dL (1.8-2.4) Total Bilirubin 0.5 mg/dL (0.2-1.0) Aspartate Amino Transf (AST/SGOT) 31 U/L (15-37) Alanine Aminotransferase (ALT/SGPT) 14 U/L (16-63) Alkaline Phosphatase 164 U/L (46-116) Total Protein 4.2 g/dL (6.4-8.2) Albumin 1.2 g/dL (3.4-5.0) Albumin/Globulin Ratio 0.4 (1.0-1.7) Laboratory Tests Test 06/16/19 06:00 06/16/19 07:25 White Blood Count 19.4 x10^3/uL (4.0-11.0) Red Blood Count 3.07 x10^6/uL (4.30-5.70) Hemoglobin 9.7 g/dL (13.0-17.5) Hematocrit 28.8 % (39.0-53.0) Mean Corpuscular Volume 94 fL (79-100) Mean Corpuscular Hemoglobin 32 pg (25-35) Mean Corpuscular Hemoglobin Concent 34 g/dL (31-37) Red Cell Distribution Width 14.3 % (11.5-14.5) Platelet Count 158 x10^3/uL (140-400) Neutrophils (%) (Auto) 88 % (31-73) Lymphocytes (%) (Auto) 5 % (24-48) Monocytes (%) (Auto) 7 % (0-9) Eosinophils (%) (Auto) 0 % (0-3) Basophils (%) (Auto) 0 % (0-3) Neutrophils # (Auto) 17.0 x10^3/uL (1.8-7.7) Lymphocytes # (Auto) 1.0 x10^3/uL (1.0-4.8) Monocytes # (Auto) 1.3 x10^3/uL (0.0-1.1) Eosinophils # (Auto) 0.1 x10^3/uL (0.0-0.7) Basophils # (Auto) 0.0 x10^3/uL (0.0-0.2) Sodium Level 138 mmol/L (136-145) Potassium Level 3.8 mmol/L (3.5-5.1) Chloride Level 102 mmol/L (98-107) Carbon Dioxide Level 24 mmol/L (21-32) Anion Gap 12 (6-14) Blood Urea Nitrogen 74 mg/dL (8-26) Creatinine 3.5 mg/dL (0.7-1.3) Estimated GFR (Cockcroft-Gault) 17.1 BUN/Creatinine Ratio 21 (6-20) Glucose Level 265 mg/dL (70-99) Calcium Level 6.4 mg/dL (8.5-10.1) Phosphorus Level 6.0 mg/dL (2.6-4.7) Magnesium Level 2.0 mg/dL (1.8-2.4) Total Bilirubin 0.5 mg/dL (0.2-1.0) Aspartate Amino Transf (AST/SGOT) 31 U/L (15-37) Alanine Aminotransferase (ALT/SGPT) 14 U/L (16-63) Alkaline Phosphatase 164 U/L (46-116) Total Protein 4.2 g/dL (6.4-8.2) Albumin 1.2 g/dL (3.4-5.0) Albumin/Globulin Ratio 0.4 (1.0-1.7) Medications Active Scripts Medications Dose Route/Sig Max Daily Dose Days Date Category Foltx Tablet (B12/Levomefolate Calcium/B-6) 1 Each Tablet 1 Each PO AFTRNOON 06/07/19 Reported Testosterone Cypionate 200 Mg/1 Ml Vial 1 Ml IM Q2WKS 06/07/19 Reported Novolog Mix 70-30 Flexpen Syrn (Insuln Asp Prt/Insulin Aspart) 100 Unit/1 Ml Insuln.pen 1 Unit SQ BIDACBL 06/07/19 Reported Lantus Solostar (Insulin Glargine,Hum.rec.anlog) 100 Unit/1 Ml Insuln.pen 30 Unit SQ QHS 06/07/19 Reported Nifedipine Er (Nifedipine) 60 Mg Tab.er.24 1 Tab PO DAILY 06/07/19 Reported Morphine Sulfate Er (Morphine Sulfate) 60 Mg Tablet.er 1 Tab PO BID 06/07/19 Reported Furosemide 40 Mg Tablet 40 Mg PO DAILY 06/07/19 Reported Finasteride 5 Mg Tablet 1 Tab PO DAILY 06/07/19 Reported Simvastatin 40 Mg Tablet 1 Tab PO QHS 06/07/19 Reported Metoprolol Succinate ( Xl ) (Metoprolol Succinate) 200 Mg Tab.er.24h 1 Tab PO DAILY 06/07/19 Reported Levothyroxine Sodium 175 Mcg Tablet 1 Tab PO DAILY 06/07/19 Reported Losartan-Hctz 100-12.5 Mg Tab (Losartan/Hydrochlorothiazide) 1 Each Tablet 1 Tab PO DAILY 06/07/19 Reported Impression . 1. Abnormal x-ray secondary to atelectasis/CHF 2. Respiratory FAILURE MULTIFACTORIAL NOW S/P OR FOR ID OF SHOULDER 3. Erosive gastritis. 4. Diarrhea. 5. Coronary artery disease, status post coronary artery bypass grafting. 6, COLONIC ILEUS 7. SEPSIS WITH HYPOTENSION 8. SHOULDER ABSCESS 9. RENATA Plan . HD CXR REVIEWED WEAN PRESSORS ABG NOTED COMPENSATED IV FLUIDS PER NEPHRO OVERALL PROGNOSIS SI GUARDED ANTI BX PER ID CCT 30 MIN FORMULATING A PLAN, REVIEWING DATA, LABS, CXR EDMAR GARG MD Jun 16, 2019 10:03
[2019-06-16] MEDS: MEROPENEM 1 GM in IV NORMAL SALINE 100ML 100 ML IV SCH (10:55)
--- NOTE | 2019-06-16 11:21 | PDOC ---
PROGRESS NOTES Subjective Subjective seen in ICU, sedated on vent Objective Objective Vital Signs Date Time Temp Pulse Resp B/P (MAP) Pulse Ox O2 Delivery O2 Flow Rate FiO2 06/16/19 11:02 Ventilator 06/16/19 11:00 91 12 136/48 (77) 92 06/16/19 08:00 100.1 100.1 06/16/19 03:21 2.0 Intake and Output 06/16/19 06:59 Intake Total 5257.72 ml Output Total 572 ml Balance 4685.72 ml IV Total 5257.72 ml Output Urine Total 72 ml Stool Total 500 ml Drainage Total 0 ml Physical Exam Physical Exam NGT Abdomen: Soft, Other (ND, reducible hernia ) Heart: Regular rate Extremities: No cyanosis General: Other (on vent) HEENT: Other (NG in place) Lungs: Other (vent) MUSCULOSKELETAL: No deformity, No swelling Neuro: Other (sedated on vent) Psych/Mental Status: Other Skin: No breakdown COMMENT woodson Assessment Assessment ASSESSMENT: Acute Sepsis hypotension Resp failure on vent ATN/ARF septic shoulder, Beta hemolytic Streptococcus, group B 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 The patient was admitted with hematemesis with findings erosive esophagitis, erosive gastritis and crater ulcer bulb with clean base, status post biopsy. The biopsy was negative for malignancy and Helicobacter organisms. 2. The patient developed urinary retention for which he had an indwelling Woodson catheter. We will start him on Flomax and finasteride. 3. Acute on chronic kidney injury. Creatinine has risen from 1.5 to 2.4 for which we started him on IV fluid, given a bolus of 500 mL continuous at 125 mL per hour. 4. Abscess or hematoma around the left shoulder with marked leukocytosis as well as elevated sed rate and C-reactive protein. There was gas also in the fluid collection, raising possibility of an abscess. PLAN: pt was taken to surgery 06/14/19, shoulder irrigation. Beta hemolytic Streptococcus, group B on vent for resp failure. levophed 24 mcg for hypotension CRRT spoke with pts and son critical condition C diff positive,vancomycin liquid wbc 21, cr 4.2 inc iv antibiotics,daptomycin+meropenum TPN for nutrition. renal consult. ?[facility] transfer on hold due to critical illness. Gi and surgry on case. Comment Review of Relevant I have reviewed the following items john (where applicable) has been applied. Labs Laboratory Tests Test 06/16/19 06:00 06/16/19 07:25 White Blood Count 19.4 x10^3/uL (4.0-11.0) Red Blood Count 3.07 x10^6/uL (4.30-5.70) Hemoglobin 9.7 g/dL (13.0-17.5) Hematocrit 28.8 % (39.0-53.0) Mean Corpuscular Volume 94 fL (79-100) Mean Corpuscular Hemoglobin 32 pg (25-35) Mean Corpuscular Hemoglobin Concent 34 g/dL (31-37) Red Cell Distribution Width 14.3 % (11.5-14.5) Platelet Count 158 x10^3/uL (140-400) Neutrophils (%) (Auto) 88 % (31-73) Lymphocytes (%) (Auto) 5 % (24-48) Monocytes (%) (Auto) 7 % (0-9) Eosinophils (%) (Auto) 0 % (0-3) Basophils (%) (Auto) 0 % (0-3) Neutrophils # (Auto) 17.0 x10^3/uL (1.8-7.7) Lymphocytes # (Auto) 1.0 x10^3/uL (1.0-4.8) Monocytes # (Auto) 1.3 x10^3/uL (0.0-1.1) Eosinophils # (Auto) 0.1 x10^3/uL (0.0-0.7) Basophils # (Auto) 0.0 x10^3/uL (0.0-0.2) Sodium Level 138 mmol/L (136-145) Potassium Level 3.8 mmol/L (3.5-5.1) Chloride Level 102 mmol/L (98-107) Carbon Dioxide Level 24 mmol/L (21-32) Anion Gap 12 (6-14) Blood Urea Nitrogen 74 mg/dL (8-26) Creatinine 3.5 mg/dL (0.7-1.3) Estimated GFR (Cockcroft-Gault) 17.1 BUN/Creatinine Ratio 21 (6-20) Glucose Level 265 mg/dL (70-99) Calcium Level 6.4 mg/dL (8.5-10.1) Phosphorus Level 6.0 mg/dL (2.6-4.7) Magnesium Level 2.0 mg/dL (1.8-2.4) Total Bilirubin 0.5 mg/dL (0.2-1.0) Aspartate Amino Transf (AST/SGOT) 31 U/L (15-37) Alanine Aminotransferase (ALT/SGPT) 14 U/L (16-63) Alkaline Phosphatase 164 U/L (46-116) Total Protein 4.2 g/dL (6.4-8.2) Albumin 1.2 g/dL (3.4-5.0) Albumin/Globulin Ratio 0.4 (1.0-1.7) Microbiology 06/13/19 AFB Specimen Processing Tissue - Final, Resulted 06/13/19 Acid Fast Bacilli Culture, Resulted Pending 06/13/19 Gram Stain - Final, Resulted 06/13/19 Fungal Culture, Resulted Pending 06/13/19 Fungal Culture Result 1, Resulted Pending 06/13/19 Blood Culture - Preliminary, Resulted NO GROWTH AFTER 2 DAYS Medications Current Medications Albumin Human 200 ml @ 200 mls/hr 1X PRN PRN IV Hypotension; Start 06/15/19 at 14:00; Stop 06/15/19 at 19:59; Status DC Daptomycin 560 mg/ Sodium Chloride 50 ml @ 100 mls/hr Q48H IV Last administered on 06/15/19at 13:58; Start 06/15/19 at 14:00 Info (PHARMACY MONITORING -- do not chart) 1 each PRN DAILY PRN MC SEE COMMENTS; Start 06/15/19 at 14:00; Stop 06/15/19 at 13:55; Status DC Info (PHARMACY MONITORING -- do not chart) 1 each PRN DAILY PRN MC SEE COMMENTS; Start 06/15/19 at 14:00 Info (PHARMACY MONITORING -- do not chart) 1 each PRN DAILY PRN MC SEE COMMENTS; Start 06/16/19 at 09:15; Status UNV Info (PHARMACY MONITORING -- do not chart) 1 each PRN DAILY PRN MC SEE COMMENTS; Start 06/16/19 at 09:15; Status UNV Info (Tpn Per Pharmacy) 1 each PRN DAILY PRN MC SEE COMMENTS Last administered on 06/15/19at 13:05; Start 06/15/19 at 11:30 Insulin Human Lispro (HumaLOG) 0-9 UNITS Q6HRS SQ ; Start 06/16/19 at 12:00 Magnesium Sulfate 50 ml @ 25 mls/hr 1X ONCE IV Last administered on 06/16/19at 08:27; Start 06/16/19 at 08:30; Stop 06/16/19 at 10:29; Status DC Metronidazole 100 ml @ 100 mls/hr Q8HRS IV Last administered on 06/16/19at 05 :09; Start 06/15/19 at 17:30 Midazolam HCl 100 ml @ 0 mls/hr CONT PRN IV SEE PROTOCOL Last administered on 06/15/19at 21:24; Start 06/15/19 at 13:00 Sodium Chloride 1,000 ml @ 400 mls/hr Q2H30M PRN IV PATENCY; Start 06/15/19 at 13:49; Stop 06/16/19 at 01:48; Status DC Sodium Chloride 1,000 ml @ 1,000 mls/hr Q1H PRN IV hypotension; Start 06/15/19 at 13:49; Stop 06/15/19 at 19:48; Status DC Sodium Chloride 90 meq/Potassium Chloride 50 meq/ Magnesium Sulfate 10 meq/Calcium Gluconate 10 meq/ Multivitamins 10 ml/Chromium/ Copper/Manganese/ Seleni/Zn 1 ml/ Total Parenteral Nutrition/Amino Acids/Dextrose 1,512 ml @ 63 mls/hr TPN CONT IV Last administered on 06/16/19at 00:19; Start 06/15/19 at 22:00; Stop 06/16/19 at 21:59 Testosterone Cypionate (Depo-Testosterone) 200 mg Q2WKS IM ; Start 06/22/19 at 09:00 Vancomycin HCl (Vancomycin Oral Solution) 125 mg [id number] PO Last administered on 06/16/19at 08:27; Start 06/16/19 at 09:00 Vasopressin 40 unit/Dextrose 102 ml @ 6 mls/hr CONT PRN IV SEE I/O RECORD Last administered on 06/15/19at 14:48; Start 06/15/19 at 14:30 Vitals/I & O Vital Sign - Last 24 Hours 06/15/19 06/15/19 06/15/19 06/15/19 12:00 12:00 12:17 13:00 Temp 98.3 98.3 Pulse 96 94 B/P (MAP) 90/38 (55) 80/32 (48) Pulse Ox 96 93 96 O2 Delivery Ventilator Mechanical Ventilator Ventilator Ventilator 06/15/19 06/15/19 06/15/19 06/15/19 14:00 14:09 15:00 16:00 Pulse 90 90 B/P (MAP) 90/34 (52) 102/38 (59) Pulse Ox 97 93 97 O2 Delivery Ventilator Ventilator Ventilator Mechanical Ventilator 06/15/19 06/15/19 06/15/19 06/15/19 16:00 16:04 17:00 18:00 Temp 98.2 98.2 Pulse 94 96 96 B/P (MAP) 128/48 (74) 132/40 (70) 118/65 (82) Pulse Ox 96 96 98 98 O2 Delivery Ventilator Ventilator Ventilator Ventilator 06/15/19 06/15/19 06/15/19 06/15/19 19:00 19:56 20:00 20:00 Temp 98.6 98.6 Pulse 92 96 Resp 12 12 B/P (MAP) 178/48 (91) 128/38 (68) Pulse Ox 98 97 98 O2 Delivery Ventilator Ventilator Ventilator Mechanical Ventilator 06/15/19 06/15/19 06/15/19 06/15/19 20:00 20:03 21:00 22:00 Pulse 88 90 90 Resp 12 12 B/P (MAP) 142/48 (79) 158/42 (80) Pulse Ox 97 98 98 O2 Delivery Ventilator Ventilator O2 Flow Rate 2.0 06/15/19 06/15/19 06/16/19 06/16/19 23:00 23:22 00:00 00:00 Pulse 90 88 Resp 12 B/P (MAP) 116/34 (61) Pulse Ox 98 98 O2 Delivery Ventilator Ventilator Mechanical Ventilator 06/16/19 06/16/19 06/16/19 06/16/19 00:01 01:00 01:49 02:00 Temp 98.5 98.5 Pulse 72 92 90 Resp 12 12 12 B/P (MAP) 124/34 (64) 108/38 (61) 108/38 (61) Pulse Ox 98 98 97 98 O2 Delivery Ventilator Ventilator Ventilator Ventilator 06/16/19 06/16/19 06/16/19 06/16/19 02:51 03:00 03:12 03:21 Pulse 90 Resp 12 B/P (MAP) 116/42 (66) Pulse Ox 98 98 96 96 O2 Delivery Ventilator Ventilator O2 Flow Rate 2.0 2.0 06/16/19 06/16/19 06/16/19 06/16/19 04:00 04:00 04:00 05:00 Temp 98.1 98.1 Pulse 93 91 86 Resp 12 12 B/P (MAP) 114/42 (66) 140/43 (75) Pulse Ox 94 95 O2 Delivery Mechanical Ventilator Ventilator Ventilator 06/16/19 06/16/19 06/16/19 06/16/19 05:46 06:00 07:00 08:00 Pulse 87 88 Resp 12 12 B/P (MAP) 119/34 (62) 116/34 (61) Pulse Ox 95 98 95 O2 Delivery Ventilator Ventilator Ventilator Mechanical Ventilator 06/16/19 06/16/19 06/16/19 06/16/19 08:00 08:58 09:00 09:26 Temp 100.1 100.1 Pulse 82 88 Resp 12 12 B/P (MAP) 140/40 (73) 116/41 (66) Pulse Ox 90 90 91 O2 Delivery Ventilator Ventilator Ventilator Ventilator 06/16/19 06/16/19 06/16/19 06/16/19 10:00 10:50 10:51 10:52 Pulse 93 96 94 92 Resp 12 B/P (MAP) 111/39 (63) 94/36 (55) 84/34 (51) 84/32 (49) Pulse Ox 93 O2 Delivery Ventilator 06/16/19 06/16/19 06/16/19 10:53 11:00 11:02 Pulse 94 91 Resp 12 B/P (MAP) 90/36 (54) 136/48 (77) Pulse Ox 92 O2 Delivery Ventilator Ventilator Intake and Output 06/15/19 06/15/19 06/16/19 14:59 22:59 06:59 Intake Total 1314 ml 2010.32 ml 1933.4 ml Output Total 14 ml 13 ml 545 ml Balance 1300 ml 1997.32 ml 1388.4 ml DESIREE BAY MD Jun 16, 2019 11:21
[2019-06-16 11:28] LABS: FIO2 ABG 40%
[2019-06-16] MEDS: TPN PER PHARMACY MC PRN ×2 (12:52→13:01)
--- NOTE | 2019-06-16 13:03 | NUR ---
Pharmacy TPN Dosing Note S: ROSLYN MOORE is a 78 year old M Currently receiving Central Continuous TPN started 06/15/19 B:Pertinent PMH: Duodenal ulcer, NPO Height: 6 feet, 0 inches Weight: 92.8 kg Current diet: NPO LABS: Sodium: 138 Potassium: 3.8 Chloride: 102 Calcium: 6.4 Corrected Calcium: 8.64 Magnesium: 2 CO2: 24 SCr: 3.5 Glucose: 265 Albumin: 1.2 AST: 31 ALT: 14 TPN FORMULA: TPN TYPE: Central Continuous AMINO ACIDS: 110 gm DEXTROSE: 195 gm LIPIDS: 20 gm SODIUM CHLORIDE: 90 mEq POTASSIUM CHLORIDE: 50 mEq MAGNESIUM: 10 mEq CALCIUM: 10 mEq MULTIPLE VITAMIN: 10 ml TRACE ELEMENTS: 1 ml TPN PLAN: Propofol no longer running; 20g lipids added to TPN for tonight. R: Change TPN per plan and ordered formula Will monitor electrolytes, glucose, and tolerance to TPN. Kellee Alicia [facility], 06/16/19 [id number]
[2019-06-16] MEDS: VASOPRESSIN 40 UNIT in IV DEXTROSE 5% 100ML 100 ML IV PRN (14:25)
[2019-06-16] MEDS: MIDAZOLAM 100mg/100ml NS BAG 100 ML IV PRN (18:28)
[2019-06-16] MEDS: SIMVASTATIN 40 MG TABLET. PO SCH (21:00)
[2019-06-16] MEDS ORDERED: DEXTROSE 70% IV SCH ×9 (22:00)
[2019-06-16] MEDS ORDERED: [UNRECOGNIZED DRUG - OTHER] IV SCH ×9 (22:00)
[2019-06-16] MEDS ORDERED: AMINO ACID IV SCH ×9 (22:00)
[2019-06-16] MEDS ORDERED: TOTAL PARENTERAL NUTRITION IV SCH ×9 (22:00)
[2019-06-16] MEDS: INSULIN GLARGINE SYRINGE. SQ SCH (22:45)
[2019-06-17] VITALS (26 sets, daily range): BP systolic 78–127; BP diastolic 40–88
[2019-06-17] MEDS: IV 1/2 NORMAL SALINE 1,000 ML IV SCH ×3 (02:02→21:48)
[2019-06-17] MEDS: INSULIN LISPRO 300 UNITS/3 ML VIAL. SQ SCH ×4 (02:09→18:24)
[2019-06-17] MEDS: LEVOTHYROXINE 175 MCG TABLET PO SCH (05:41)
[2019-06-17] MEDS: MORPHINE ER 30 MG TABLET.ER PO SCH ×2 (07:01→20:37)
[2019-06-17] MEDS: VITAMIN B COMPLEX TABLET. PO SCH (07:01)
[2019-06-17] MEDS: FINASTERIDE 5 MG TABLET. PO SCH (07:02)
[2019-06-17] MEDS: VASOPRESSIN 40 UNIT in IV DEXTROSE 5% 100ML 100 ML IV PRN (08:04)
[2019-06-17] MEDS: NOREPINEPHRIN 8MG/250ML PREMIX 250 ML IV PRN ×2 (08:17→16:16)
[2019-06-17] MEDS: VANCOMYCIN 125 MG/2.5 ML ORAL SOLUTION. PO SCH ×4 (08:48→21:58)
[2019-06-17] MEDS: MEROPENEM 1 GM in IV NORMAL SALINE 100ML 100 ML IV SCH (08:48)
[2019-06-17] MEDS: PANTOPRAZOLE IV PUSH 40 MG VIAL. IVP SCH (08:48)
[2019-06-17] MEDS: MIDAZOLAM 100mg/100ml NS BAG 100 ML IV PRN (09:14)
--- NOTE | 2019-06-17 09:15 | PDOC ---
GI PROGRESS NOTES Date Date/Time DATE: 06/17/19 TIME: 09:13 Subjective Subjective sedated on vent rectal tube in place Objective Vitals Vital Signs Date Time Temp Pulse Resp B/P (MAP) Pulse Ox O2 Delivery O2 Flow Rate FiO2 06/17/19 08:06 18 100 Ventilator 06/17/19 07:35 99 Ventilator 06/17/19 07:00 74 12 99/68 (78) 98 Ventilator 06/17/19 06:00 89 21 114/52 (72) 97 Ventilator 06/17/19 05:16 96 Ventilator 06/17/19 05:00 90 21 123/53 (76) 97 Ventilator 06/17/19 04:00 Mechanical Ventilator 06/17/19 04:00 99.1 90 22 114/53 (73) 96 Ventilator 99.1 06/17/19 03:29 95 Ventilator 06/17/19 03:00 90 22 111/50 (70) 96 Ventilator 06/17/19 02:11 23 96 2.0 06/17/19 02:00 89 23 121/60 (80) 96 Ventilator 06/17/19 01:00 89 18 105/60 (75) 96 Ventilator 06/17/19 00:54 94 Ventilator 06/17/19 00:01 Mechanical Ventilator 06/17/19 00:01 99.0 65 20 107/88 (94) 96 Ventilator 99.0 06/16/19 23:13 20 95 2.0 06/16/19 23:00 91 20 104/68 (80) 96 Ventilator 06/16/19 22:00 89 19 130/40 (70) 96 Ventilator 06/16/19 21:45 95 Ventilator 06/16/19 21:00 82 20 142/41 (74) 96 Ventilator 06/16/19 20:00 99.6 87 20 145/44 (77) 96 Ventilator 99.6 06/16/19 20:00 Mechanical Ventilator 06/16/19 19:41 95 Ventilator 06/16/19 19:00 78 20 139/41 (73) 96 Ventilator 06/16/19 18:00 83 12 139/41 (73) 96 Ventilator 06/16/19 17:32 Ventilator 06/16/19 17:00 80 12 144/40 (74) 94 Ventilator 06/16/19 16:27 Ventilator 06/16/19 16:26 94 Ventilator 06/16/19 16:00 Mechanical Ventilator 06/16/19 16:00 99.4 80 12 152/42 (78) 94 Ventilator 99.4 06/16/19 15:00 80 14 140/38 (72) 95 Ventilator 06/16/19 14:00 80 14 152/40 (77) 94 Ventilator 06/16/19 13:00 80 17 146/40 (75) 92 Ventilator 06/16/19 12:10 92 Ventilator 06/16/19 12:00 Mechanical Ventilator 06/16/19 12:00 99.1 90 16 128/40 (69) 90 Ventilator 99.1 06/16/19 11:30 86 128/40 (69) 06/16/19 11:22 82 160/44 (82) 06/16/19 11:21 80 136/44 (74) 06/16/19 11:20 84 124/42 (69) 06/16/19 11:19 84 142/34 (70) 06/16/19 11:18 86 150/40 (76) 06/16/19 11:17 86 160/44 (82) 06/16/19 11:16 84 166/46 (86) 06/16/19 11:15 86 162/44 (83) 06/16/19 11:14 78 158/44 (82) 06/16/19 11:12 80 142/46 (78) 06/16/19 11:10 82 156/48 (84) 06/16/19 11:07 86 166/48 (87) 06/16/19 11:05 82 178/52 (94) 06/16/19 11:02 Ventilator 06/16/19 11:00 91 12 136/48 (77) 92 Ventilator 06/16/19 10:53 94 90/36 (54) 06/16/19 10:52 92 84/32 (49) 06/16/19 10:51 94 84/34 (51) 06/16/19 10:50 96 94/36 (55) 06/16/19 10:00 93 12 111/39 (63) 93 Ventilator 06/16/19 09:26 Ventilator Labs Labs Laboratory Tests Test 06/16/19 13:36 06/16/19 17:59 06/16/19 22:37 06/17/19 02:07 Glucose (Fingerstick) 199 mg/dL (70-99) 201 mg/dL (70-99) 235 mg/dL (70-99) 258 mg/dL (70-99) Test 06/17/19 06:17 06/17/19 06:30 Glucose (Fingerstick) 251 mg/dL (70-99) Magnesium Level 2.3 mg/dL (1.8-2.4) Physical Exam Physical Exam sedated chest- few rhonchi- on vent abd- a few tinkles heard- rectal tube in place Assessment Assessment 1)hematemesis 2)erosive esophagitis 3)non-erosive gastritis s/p bx 4)cratered ulcer bulb with clean base s/p bx 5) Anemia: Hgb drifting down BUT no overt melena or blood in stool Ileus- C diff positive Plan- supportive care- continue present treatments and monitoring Plan Plan Plan serial Hgb PPI therapy treat c diff continue rectal tube LAVON KING MD Jun 17, 2019 09:15
[2019-06-17 09:51] LABS: BASE EXCESS ABG -3 mmol/L (-3-3); HCO3 ABG 22 mmol/L (21-28); PCO2 ABG 36 mmHg (35-46); PO2 ABG 70 mmHg (65-108); SAT O2 ABG 93 % (92-99)
[2019-06-17 09:54] LABS: FIO2 ABG 60
--- NOTE | 2019-06-17 10:49 | PDOC ---
PROGRESS NOTES Subjective Subjective In ICU, sedated, on ventilator Objective Vital Signs Vital Signs Date Time Temp Pulse Resp B/P (MAP) Pulse Ox O2 Delivery O2 Flow Rate FiO2 06/17/19 10:00 Ventilator 06/17/19 10:00 88 19 99/57 (71) 98 06/17/19 08:00 99.1 99.1 06/17/19 02:11 2.0 Physical Exam Shoulder dressing is dry. Drain now has minimal output. The arm is still swollen as expected. Labs Laboratory Tests Test 06/15/19 13:45 06/15/19 13:55 06/15/19 16:20 06/15/19 21:20 Clostridium difficile Toxin B Gene Positive (Negative) Glucose (Fingerstick) 144 mg/dL (70-99) 146 mg/dL (70-99) 116 mg/dL (70-99) Test 06/16/19 05:31 06/16/19 06:00 06/16/19 07:25 06/16/19 08:16 O2 Saturation 88 % (92-99) Arterial Blood pH 7.36 (7.35-7.45) Arterial Blood pCO2 at Patient Temp 47 mmHg (35-46) Arterial Blood pO2 at Patient Temp 57 mmHg (65-108) Arterial Blood HCO3 26 mmol/L (21-28) Arterial Blood Base Excess 0 mmol/L (-3-3) FiO2 40% White Blood Count 19.4 x10^3/uL (4.0-11.0) Red Blood Count 3.07 x10^6/uL (4.30-5.70) Hemoglobin 9.7 g/dL (13.0-17.5) Hematocrit 28.8 % (39.0-53.0) Mean Corpuscular Volume 94 fL (79-100) Mean Corpuscular Hemoglobin 32 pg (25-35) Mean Corpuscular Hemoglobin Concent 34 g/dL (31-37) Red Cell Distribution Width 14.3 % (11.5-14.5) Platelet Count 158 x10^3/uL (140-400) Neutrophils (%) (Auto) 88 % (31-73) Lymphocytes (%) (Auto) 5 % (24-48) Monocytes (%) (Auto) 7 % (0-9) Eosinophils (%) (Auto) 0 % (0-3) Basophils (%) (Auto) 0 % (0-3) Neutrophils # (Auto) 17.0 x10^3/uL (1.8-7.7) Lymphocytes # (Auto) 1.0 x10^3/uL (1.0-4.8) Monocytes # (Auto) 1.3 x10^3/uL (0.0-1.1) Eosinophils # (Auto) 0.1 x10^3/uL (0.0-0.7) Basophils # (Auto) 0.0 x10^3/uL (0.0-0.2) Sodium Level 138 mmol/L (136-145) Potassium Level 3.8 mmol/L (3.5-5.1) Chloride Level 102 mmol/L (98-107) Carbon Dioxide Level 24 mmol/L (21-32) Anion Gap 12 (6-14) Blood Urea Nitrogen 74 mg/dL (8-26) Creatinine 3.5 mg/dL (0.7-1.3) Estimated GFR (Cockcroft-Gault) 17.1 BUN/Creatinine Ratio 21 (6-20) Glucose Level 265 mg/dL (70-99) Calcium Level 6.4 mg/dL (8.5-10.1) Phosphorus Level 6.0 mg/dL (2.6-4.7) Magnesium Level 2.0 mg/dL (1.8-2.4) Total Bilirubin 0.5 mg/dL (0.2-1.0) Aspartate Amino Transf (AST/SGOT) 31 U/L (15-37) Alanine Aminotransferase (ALT/SGPT) 14 U/L (16-63) Alkaline Phosphatase 164 U/L (46-116) Total Protein 4.2 g/dL (6.4-8.2) Albumin 1.2 g/dL (3.4-5.0) Albumin/Globulin Ratio 0.4 (1.0-1.7) Glucose (Fingerstick) 220 mg/dL (70-99) Test 06/16/19 13:36 06/16/19 17:59 06/16/19 22:37 06/17/19 02:07 Glucose (Fingerstick) 199 mg/dL (70-99) 201 mg/dL (70-99) 235 mg/dL (70-99) 258 mg/dL (70-99) Test 06/17/19 06:17 06/17/19 06:30 06/17/19 08:00 Glucose (Fingerstick) 251 mg/dL (70-99) Magnesium Level 2.3 mg/dL (1.8-2.4) O2 Saturation 93 % (92-99) Arterial Blood pH 7.40 (7.35-7.45) Arterial Blood pCO2 at Patient Temp 36 mmHg (35-46) Arterial Blood pO2 at Patient Temp 70 mmHg (65-108) Arterial Blood HCO3 22 mmol/L (21-28) Arterial Blood Base Excess -3 mmol/L (-3-3) FiO2 60 Laboratory Tests Test 06/16/19 13:36 06/16/19 17:59 06/16/19 22:37 06/17/19 02:07 Glucose (Fingerstick) 199 mg/dL (70-99) 201 mg/dL (70-99) 235 mg/dL (70-99) 258 mg/dL (70-99) Test 06/17/19 06:17 06/17/19 06:30 06/17/19 08:00 Glucose (Fingerstick) 251 mg/dL (70-99) Magnesium Level 2.3 mg/dL (1.8-2.4) O2 Saturation 93 % (92-99) Arterial Blood pH 7.40 (7.35-7.45) Arterial Blood pCO2 at Patient Temp 36 mmHg (35-46) Arterial Blood pO2 at Patient Temp 70 mmHg (65-108) Arterial Blood HCO3 22 mmol/L (21-28) Arterial Blood Base Excess -3 mmol/L (-3-3) FiO2 60 Assessment Assessment Status post incision and drainage left shoulder joint abscess, with retained reverse shoulder arthroplasty Plan Plan of Care Dressing change today and remove Hemovac drain. Continue IV antibiotics and supportive care. I would agree with transfer to a higher level of care ([facility]) when he is stable to do so. BRITT TANG MD Jun 17, 2019 10:49
--- NOTE | 2019-06-17 11:02 | RAD ---
Single view portable AP chest HISTORY: Patient on ventilator COMPARISON: 06/15/2019 FINDINGS: Right IJ line is identified, tip difficult to visualize. Feeding tube appears to be in place but tip difficult to visualize. Another narrow caliber tube overlies the left neck upper chest. No evidence of pneumothorax. No large effusion. Low lung volumes. Vascular congestion appears stable. Patchy atelectasis is identified. IMPRESSION: Persistent low lung volumes with patchy atelectasis. No new consolidating infiltrate. Electronically signed by: Cirilo Keith MD (06/17/2019 10:59 AM) [facility]
--- NOTE | 2019-06-17 11:36 | PDOC ---
GENERAL General: seen and examined. in ICU sedate and on vent, receiving hemodialysis for ARF, r ectal tube for c.diff, O2 needs increased to 60% FiO2 and peep increased, pressors slightly decreased, dressing left shoulder after I&D with group B strep on cultures and on IV antibiotics for same. chest with decent breath sounds and no change in CXR this am. heart regular, abdomen soft. discussed in detail with nursing. help all consultants appreciated. continued supportive care. no evidence of further GI bleeding. VITAL SIGNS/I&O Vital Signs/I&O: Vital Signs Date Time Temp Pulse Resp B/P (MAP) Pulse Ox O2 Delivery O2 Flow Rate FiO2 06/17/19 10:00 Ventilator 06/17/19 10:00 88 19 99/57 (71) 98 06/17/19 08:00 99.1 99.1 06/17/19 02:11 2.0 I & O 06/16/19 06/16/19 06/17/19 14:59 22:59 06:59 Intake Total 250 ml 3017.12 ml 3148.2 ml Output Total 28 ml 425 ml 45 ml Balance 222 ml 2592.12 ml 3103.2 ml ALLERGIES Allergies: Allergies Coded Allergies Type Severity Reaction Last Updated Verified Penicillins Allergy Intermediate 06/14/19 Yes tapentadol Allergy Intermediate 06/14/19 Yes MEDS Medications: Current Medications Medications (Trade) Dose Ordered Sig/Lauren Route PRN Reason Start Time Stop Time Status Last Admin Dose Admin Insulin Human Lispro (HumaLOG) 0-9 UNITS Q6HRS SQ 06/16/19 12:00 06/17/19 06:22 Sodium Chloride 90 meq/Potassium Chloride 50 meq/ Magnesium Sulfate 10 meq/Calcium Gluconate 10 meq/ Multivitamins 10 ml/Chromium/ Copper/Manganese/ Seleni/Zn 1 ml/ Total Parenteral Nutrition/Amino Acids/Dextrose/ Fat Emulsion Intravenous 1,512 ml @ 63 mls/hr TPN CONT IV 06/16/19 22:00 06/17/19 21:59 06/16/19 22:43 LAB Lab: Laboratory Tests Test 06/16/19 13:36 06/16/19 17:59 06/16/19 22:37 06/17/19 02:07 Glucose (Fingerstick) 199 mg/dL (70-99) H 201 mg/dL (70-99) H 235 mg/dL (70-99) H 258 mg/dL (70-99) H Test 06/17/19 06:17 06/17/19 06:30 06/17/19 08:00 Glucose (Fingerstick) 251 mg/dL (70-99) H Magnesium Level 2.3 mg/dL (1.8-2.4) O2 Saturation 93 % (92-99) Arterial Blood pH 7.40 (7.35-7.45) Arterial Blood pCO2 at Patient Temp 36 mmHg (35-46) Arterial Blood pO2 at Patient Temp 70 mmHg (65-108) Arterial Blood HCO3 22 mmol/L (21-28) Arterial Blood Base Excess -3 mmol/L (-3-3) FiO2 60 APPL,RENATO Marlow MD Jun 17, 2019 11:36
[2019-06-17 11:56] LABS: BASO % 0 % (0-3); EOS # 0.2 x10^3/uL (0.0-0.7); EOS % 1 % (0-3); HEMATOCRIT 31.9 % (39.0-53.0); HEMOGLOBIN 10.6 g/dL (13.0-17.5); LYMPH # 1.1 x10^3/uL (1.0-4.8); LYMPH % 8 % (24-48); MEAN CORPUSCULAR HEMOGLOBIN 32 pg (25-35); MEAN CORPUSCULAR HGB CONC 33 g/dL (31-37); MEAN CORPUSCULAR VOLUME 95 fL (79-100); MONO # 1.6 x10^3/uL (0.0-1.1); MONO % 11 % (0-9); NEUT % 80 % (31-73); PLATELET COUNT 166 x10^3/uL (140-400); RED BLOOD COUNT 3.37 x10^6/uL (4.30-5.70); RED CELL DISTRIBUTION WIDTH 14.8 % (11.5-14.5); WHITE BLOOD COUNT 13.9 x10^3/uL (4.0-11.0)
[2019-06-17 12:04] LABS: ALBUMIN/GLOBULIN RATIO 0.4 (1.0-1.7); CALCIUM 6.7 mg/dL (8.5-10.1); CREATININE 2.9 mg/dL (0.7-1.3); GFR 21.2; POTASSIUM 3.5 mmol/L (3.5-5.1); TOTAL BILIRUBIN 0.3 mg/dL (0.2-1.0); TOTAL PROTEIN 3.6 g/dL (6.4-8.2)
--- NOTE | 2019-06-17 12:08 | PDOC ---
SUBJECTIVE ROS Seen in ICU , stable OBJECTIVE Vital Signs Vital Signs Date Time Temp Pulse Resp B/P (MAP) Pulse Ox O2 Delivery O2 Flow Rate FiO2 06/17/19 11:36 99 Ventilator 06/17/19 11:00 86 20 100/60 (73) 06/17/19 08:00 99.1 99.1 06/17/19 02:11 2.0 I & 0 Intake and Output 06/17/19 06:59 Intake Total 6415.32 ml Output Total 498 ml Balance 5917.32 ml IV Total 6415.32 ml Output Urine Total 98 ml Stool Total 400 ml # Bowel Movements 1 PHYSICAL EXAM Physical Exam GENERAL: Orally intubated and sedated HEENT: NGT, ETT NECK: Supple LUNGS: CTA ant HEART: S1, S2. ABDOMEN: soft + BS, + rectal tube : Bledsoe EXTREMITIES: No clubbing or cyanosis with some trace lower extremity edema. He has a right hand deformity. His left shoulder is dressed. 2 plus edema. Left heel protector. SKIN: No rash. NEUROLOGIC: Sedated Temp HDC (06/15) DIAGNOSIS/ASSESSMENT Assessment & Plan RENATA-ATN Has been requiring HD, last on 06/16 Recommend daily BMP , strict i/o, supportive care, Monitor Re-eval in am for Dialysis Metabolic acidosis- resolved CKD STAGE 3- Cr Prob 1.5 Hypotension- On Pressors BP meds held Urinary retention- Flomax on Hold due to Low BP LUE abscess s/p Left shoulder open incision and drainage with arthrotomy, debridement of bone and bone cement, and joint irrigation 06/14 group B strep Post op resp failure - intubated - Pulm following C. diff positive, 06/14 Erosive Gastritis s/p EGD 06/08 CAD - Cardiology following COMMENT/RELEVANT DATA Meds Current Medications Medications (Trade) Dose Ordered Sig/Lauren Start Time Stop Time Status Last Admin Dose Admin Albumin Human 200 ml @ 200 mls/hr 1X PRN PRN 06/15/19 14:00 06/15/19 19:59 DC Amino Acids/ Electrolytes/ Dextrose 1,000 ml @ 80 mls/hr [id number] 06/14/19 10:30 06/15/19 21:59 DC 06/15/19 16:23 80 MLS/HR Bisacodyl (Dulcolax Supp) 10 mg 1X ONCE 06/07/19 17:45 06/07/19 17:46 DC 06/07/19 21:40 10 MG Bisacodyl (Dulcolax Tab) 5 mg PRN DAILY PRN 06/11/19 15:45 Bupivacaine HCl/ Epinephrine Bitart (Sensorcaine-Epi 0.25%-1:[id number] Mpf) 30 ml 1X ONCE 06/14/19 17:45 06/14/19 17:46 Cancel Clindamycin Phosphate 50 ml @ As Directed STK-MED ONCE 06/14/19 18:07 06/14/19 18:07 DC Daptomycin 560 mg/ Sodium Chloride 50 ml @ 100 mls/hr Q48H 06/15/19 14:00 06/15/19 13:58 100 MLS/HR Dexamethasone Sodium Phosphate (Decadron) 4 mg STK-MED ONCE 06/14/19 16:17 06/14/19 16:17 DC Dextrose 250 ml PRN Q15MIN PRN 06/09/19 11:45 06/09/19 15:19 DC Dextrose (Dextrose 50%-Water Syringe) 12.5 gm PRN Q15MIN PRN 06/09/19 11:45 Ephedrine Sulfate (ePHEDrine PF IN SALINE SYRINGE) 50 mg STK-MED ONCE 06/14/19 19:21 06/14/19 19:21 DC Famotidine (Pepcid Vial) 20 mg STK-MED ONCE 06/14/19 16:17 06/14/19 16:17 DC Fentanyl Citrate 30 ml @ 0 mls/hr CONT PRN 06/14/19 20:00 06/17/19 08:06 3.75 MLS/HR Fentanyl Citrate (Fentanyl 2ml Vial) 100 mcg STK-MED ONCE 06/14/19 16:17 06/14/19 16:17 DC Finasteride (Proscar) 5 mg DAILY 06/12/19 12:00 06/13/19 09:39 DC Furosemide (Lasix) 40 mg DAILY 06/08/19 12:00 06/14/19 13:01 DC 06/12/19 08:36 40 MG Heparin Sodium (Porcine) (Heparin Sodium) 2,600 unit 1X ONCE 06/15/19 11:00 06/15/19 11:01 DC Hydromorphone HCl (Dilaudid) 2 mg PRN Q3HRS PRN 06/07/19 22:00 06/14/19 23:55 DC 06/14/19 12:39 2 MG Info (PHARMACY MONITORING -- do not chart) 1 each PRN DAILY PRN 06/16/19 09:15 UNV Info (Tpn Per Pharmacy) 1 each PRN DAILY PRN 06/15/19 11:30 06/16/19 13:03 1 EACH Insulin Glargine (Lantus Syringe) 30 unit QHS 06/08/19 21:00 06/16/19 22:49 30 UNIT Insulin Human Lispro (HumaLOG) 0-9 UNITS Q6HRS 06/16/19 12:00 06/17/19 06:22 7 UNITS Ketamine HCl (Ketamine) 50 mg STK-MED ONCE 06/14/19 17:03 06/14/19 17:03 DC Levothyroxine Sodium (Synthroid) 175 mcg DAILY06 06/08/19 12:00 06/15/19 07:36 175 MCG Lidocaine HCl (Lidocaine Pf 2% Vial) 5 ml STK-MED ONCE 06/14/19 16:17 06/14/19 16:17 DC Lidocaine/Sodium Bicarbonate (Buffered Lidocaine 1%) 3 ml 1X ONCE 06/15/19 11:00 06/15/19 11:01 DC Lorazepam (Ativan) 0.5 mg PRN Q6HRS PRN 06/07/19 18:00 06/07/19 18:14 DC Losartan Potassium (Cozaar) 100 mg DAILY 06/08/19 12:00 06/14/19 13:01 DC 06/12/19 08:36 100 MG Magnesium Sulfate 50 ml @ 25 mls/hr 1X ONCE 06/16/19 08:30 06/16/19 10:29 DC 06/16/19 08:27 25 MLS/HR Meropenem 1 gm/ Sodium Chloride 100 ml @ 200 mls/hr DAILY 06/15/19 09:00 06/17/19 08:49 200 MLS/HR Methylnaltrexone [place] (Relistor) 6 mg 1X ONCE 06/14/19 14:00 06/14/19 14:01 DC 06/14/19 14:15 6 MG Metoprolol Succinate (Toprol Xl) 200 mg DAILY 06/08/19 12:00 06/14/19 13:01 DC 06/12/19 08:36 200 MG Metronidazole 100 ml @ 100 mls/hr Q8HRS 06/15/19 17:30 06/17/19 06:22 100 MLS/HR Midazolam HCl 100 ml @ 0 mls/hr CONT PRN 06/15/19 13:00 06/17/19 09:14 7 MLS/HR Morphine Sulfate (Ms Contin) 60 mg BID 06/08/19 12:00 06/15/19 07:36 60 MG Nicotine (Nicoderm Cq 21mg) 1 patch PRN DAILY PRN 06/07/19 18:00 06/07/19 18:14 DC Nifedipine (Procardia Xl) 60 mg DAILY 06/08/19 12:00 06/14/19 13:01 DC 06/12/19 08:36 60 MG Non-Formulary Medication (Insuln Asp Prt/ Insulin Aspart (Novolog Mix 70-30 Flexpen Syrn)) 1 unit BIDACBL 06/08/19 11:30 06/08/19 19:34 DC Norepinephrine Bitartrate 250 ml @ 17.398 mls/ hr CONT PRN 06/14/19 14:30 06/17/19 08:17 31.838 MLS/HR Ondansetron HCl (Zofran) 4 mg STK-MED ONCE 06/14/19 16:17 06/14/19 16:17 DC Pantoprazole Sodium (PROTONIX VIAL for IV PUSH) 40 mg DAILYAC 06/14/19 07:30 06/17/19 08:49 40 MG Pantoprazole Sodium (Protonix) 40 mg DAILYAC 06/12/19 07:30 06/13/19 13:27 DC 06/12/19 08:36 40 MG Phenylephrine HCl (PHENYLEPHRINE in 0.9% NACL PF) 1 mg STK-MED ONCE 06/14/19 17:03 06/14/19 17:04 DC Polyethylene Glycol (miraLAX PACKET) 17 gm PRN DAILY PRN 06/11/19 15:45 Propofol 100 ml @ 0 mls/hr CONT PRN 06/14/19 20:00 06/15/19 10:33 8.351 MLS/HR Ringer's Solution 1,000 ml @ 75 mls/hr [id number] 06/08/19 09:15 06/09/19 08:01 DC 06/08/19 14:01 75 MLS/HR Rocuronium Pendleton (Zemuron) 50 mg STK-MED ONCE 06/14/19 16:32 06/14/19 16:32 DC Simvastatin (Zocor) 40 mg QHS 06/08/19 21:00 06/12/19 21:26 40 MG Sodium Bicarbonate 50 meq/Sodium Chloride 1,050 ml @ 125 mls/hr [id number] 06/15/19 10:15 06/16/19 18:21 DC 06/16/19 09:26 125 MLS/HR Sodium Chloride 90 meq/Potassium Chloride 50 meq/ Magnesium Sulfate 10 meq/Calcium Gluconate 10 meq/ Multivitamins 10 ml/Chromium/ Copper/Manganese/ Seleni/Zn 1 ml/ Total Parenteral Nutrition/Amino Acids/Dextrose 1,512 ml @ 63 mls/hr TPN CONT 06/15/19 22:00 06/16/19 21:59 DC 06/16/19 00:19 63 MLS/HR Sodium Chloride 90 meq/Potassium Chloride 50 meq/ Magnesium Sulfate 10 meq/Calcium Gluconate 10 meq/ Multivitamins 10 ml/Chromium/ Copper/Manganese/ Seleni/Zn 1 ml/ Total Parenteral Nutrition/Amino Acids/Dextrose/ Fat Emulsion Intravenous 1,512 ml @ 63 mls/hr TPN CONT 06/16/19 22:00 06/17/19 21:59 06/16/19 22:43 63 MLS/HR Succinylcholine Chloride (Anectine) 200 mg STK-MED ONCE 06/14/19 16:17 06/14/19 16:17 DC Tamsulosin HCl (Flomax) 0.4 mg QHS 06/12/19 21:00 06/14/19 13:01 DC 06/12/19 21:26 0.4 MG Testosterone Cypionate (Depo-Testosterone) 200 mg Q2WKS 06/22/19 09:00 Vancomycin HCl (Vancomycin Oral Solution) 125 mg [id number] 06/16/19 09:00 06/17/19 08:49 125 MG Vasopressin 40 unit/Dextrose 102 ml @ 6 mls/hr CONT PRN 06/15/19 14:30 06/17/19 08:06 6 MLS/HR Vitamin B Complex (Bud B) 1 tab DAILY 06/08/19 12:00 06/12/19 08:36 1 TAB Lab Laboratory Tests Test 06/16/19 13:36 06/16/19 17:59 06/16/19 22:37 06/17/19 02:07 Glucose (Fingerstick) 199 mg/dL (70-99) 201 mg/dL (70-99) 235 mg/dL (70-99) 258 mg/dL (70-99) Test 06/17/19 06:17 06/17/19 06:30 06/17/19 08:00 Glucose (Fingerstick) 251 mg/dL (70-99) White Blood Count 13.9 x10^3/uL (4.0-11.0) Red Blood Count 3.37 x10^6/uL (4.30-5.70) Hemoglobin 10.6 g/dL (13.0-17.5) Hematocrit 31.9 % (39.0-53.0) Mean Corpuscular Volume 95 fL (79-100) Mean Corpuscular Hemoglobin 32 pg (25-35) Mean Corpuscular Hemoglobin Concent 33 g/dL (31-37) Red Cell Distribution Width 14.8 % (11.5-14.5) Platelet Count 166 x10^3/uL (140-400) Neutrophils (%) (Auto) 80 % (31-73) Lymphocytes (%) (Auto) 8 % (24-48) Monocytes (%) (Auto) 11 % (0-9) Eosinophils (%) (Auto) 1 % (0-3) Basophils (%) (Auto) 0 % (0-3) Neutrophils # (Auto) 11.0 x10^3/uL (1.8-7.7) Lymphocytes # (Auto) 1.1 x10^3/uL (1.0-4.8) Monocytes # (Auto) 1.6 x10^3/uL (0.0-1.1) Eosinophils # (Auto) 0.2 x10^3/uL (0.0-0.7) Basophils # (Auto) 0.0 x10^3/uL (0.0-0.2) Magnesium Level 2.3 mg/dL (1.8-2.4) O2 Saturation 93 % (92-99) Arterial Blood pH 7.40 (7.35-7.45) Arterial Blood pCO2 at Patient Temp 36 mmHg (35-46) Arterial Blood pO2 at Patient Temp 70 mmHg (65-108) Arterial Blood HCO3 22 mmol/L (21-28) Arterial Blood Base Excess -3 mmol/L (-3-3) FiO2 60 Results All relevant outside records, renal labs, imaging studies, telemetry/EKG's were reviewed. GUNNAR IGLESIAS MD Jun 17, 2019 12:08
[2019-06-17] MEDS: TPN PER PHARMACY MC PRN (12:22)
--- NOTE | 2019-06-17 12:25 | NUR ---
Pharmacy TPN Dosing Note S: ROSLYN MOORE is a 78 year old M Currently receiving Central Continuous TPN started 06/15/19 B:Pertinent PMH: Duodenal ulcer, NPO Height: 6 feet, 0 inches Weight: 92.8 kg Current diet: NPO LABS: Sodium: 136 Potassium: 3.5 Chloride: 103 Calcium: 6.7 Corrected Calcium: 9.10 Magnesium: 2.3 CO2: 23 SCr: 2.9 Glucose: 283 Albumin: 1.0 AST: 33 ALT: 12 TPN FORMULA: TPN TYPE: Central Continuous AMINO ACIDS: 110 gm DEXTROSE: 195 gm LIPIDS: 20 gm SODIUM CHLORIDE: 90 mEq POTASSIUM CHLORIDE: 50 mEq POTASSIUM PHOSPHATE: 13.6 mmol MAGNESIUM: 10 mEq CALCIUM: 10 mEq MULTIPLE VITAMIN: 10 ml TRACE ELEMENTS: 1 ml TPN PLAN: Phos level now within normal limits - Kphos added to tonight's TPN. R: Change TPN per plan and ordered formula Will monitor electrolytes, glucose, and tolerance to TPN. Kellee Alicia RPH, 06/17/19 [id number]
--- NOTE | 2019-06-17 14:18 | PDOC ---
PULMONARY PROGRESS NOTES Subjective SEDATED PT ON AC MODE S/P OR NOW ON PRESSORS Vitals Vital Signs Date Time Temp Pulse Resp B/P (MAP) Pulse Ox O2 Delivery O2 Flow Rate FiO2 06/17/19 13:00 87 21 106/62 (77) 98 Ventilator 06/17/19 12:00 99.4 99.4 06/17/19 02:11 2.0 HEENT: Other (UNABLE TO ASSESS JVD SEC TO BODY HABITS) Lungs: Crackles Cardiovascular: S1, S2 Abdomen: Other (TENDER) Extremities: Other (EDEMA) Skin: Warm Labs Laboratory Tests Test 06/15/19 16:20 06/15/19 21:20 06/16/19 05:31 06/16/19 06:00 Glucose (Fingerstick) 146 mg/dL (70-99) 116 mg/dL (70-99) O2 Saturation 88 % (92-99) Arterial Blood pH 7.36 (7.35-7.45) Arterial Blood pCO2 at Patient Temp 47 mmHg (35-46) Arterial Blood pO2 at Patient Temp 57 mmHg (65-108) Arterial Blood HCO3 26 mmol/L (21-28) Arterial Blood Base Excess 0 mmol/L (-3-3) FiO2 40% White Blood Count 19.4 x10^3/uL (4.0-11.0) Red Blood Count 3.07 x10^6/uL (4.30-5.70) Hemoglobin 9.7 g/dL (13.0-17.5) Hematocrit 28.8 % (39.0-53.0) Mean Corpuscular Volume 94 fL (79-100) Mean Corpuscular Hemoglobin 32 pg (25-35) Mean Corpuscular Hemoglobin Concent 34 g/dL (31-37) Red Cell Distribution Width 14.3 % (11.5-14.5) Platelet Count 158 x10^3/uL (140-400) Neutrophils (%) (Auto) 88 % (31-73) Lymphocytes (%) (Auto) 5 % (24-48) Monocytes (%) (Auto) 7 % (0-9) Eosinophils (%) (Auto) 0 % (0-3) Basophils (%) (Auto) 0 % (0-3) Neutrophils # (Auto) 17.0 x10^3/uL (1.8-7.7) Lymphocytes # (Auto) 1.0 x10^3/uL (1.0-4.8) Monocytes # (Auto) 1.3 x10^3/uL (0.0-1.1) Eosinophils # (Auto) 0.1 x10^3/uL (0.0-0.7) Basophils # (Auto) 0.0 x10^3/uL (0.0-0.2) Test 06/16/19 07:25 06/16/19 08:16 06/16/19 13:36 06/16/19 17:59 Sodium Level 138 mmol/L (136-145) Potassium Level 3.8 mmol/L (3.5-5.1) Chloride Level 102 mmol/L (98-107) Carbon Dioxide Level 24 mmol/L (21-32) Anion Gap 12 (6-14) Blood Urea Nitrogen 74 mg/dL (8-26) Creatinine 3.5 mg/dL (0.7-1.3) Estimated GFR (Cockcroft-Gault) 17.1 BUN/Creatinine Ratio 21 (6-20) Glucose Level 265 mg/dL (70-99) Calcium Level 6.4 mg/dL (8.5-10.1) Phosphorus Level 6.0 mg/dL (2.6-4.7) Magnesium Level 2.0 mg/dL (1.8-2.4) Total Bilirubin 0.5 mg/dL (0.2-1.0) Aspartate Amino Transf (AST/SGOT) 31 U/L (15-37) Alanine Aminotransferase (ALT/SGPT) 14 U/L (16-63) Alkaline Phosphatase 164 U/L (46-116) Total Protein 4.2 g/dL (6.4-8.2) Albumin 1.2 g/dL (3.4-5.0) Albumin/Globulin Ratio 0.4 (1.0-1.7) Glucose (Fingerstick) 220 mg/dL (70-99) 199 mg/dL (70-99) 201 mg/dL (70-99) Test 06/16/19 22:37 06/17/19 02:07 06/17/19 06:17 06/17/19 06:30 Glucose (Fingerstick) 235 mg/dL (70-99) 258 mg/dL (70-99) 251 mg/dL (70-99) White Blood Count 13.9 x10^3/uL (4.0-11.0) Red Blood Count 3.37 x10^6/uL (4.30-5.70) Hemoglobin 10.6 g/dL (13.0-17.5) Hematocrit 31.9 % (39.0-53.0) Mean Corpuscular Volume 95 fL (79-100) Mean Corpuscular Hemoglobin 32 pg (25-35) Mean Corpuscular Hemoglobin Concent 33 g/dL (31-37) Red Cell Distribution Width 14.8 % (11.5-14.5) Platelet Count 166 x10^3/uL (140-400) Neutrophils (%) (Auto) 80 % (31-73) Lymphocytes (%) (Auto) 8 % (24-48) Monocytes (%) (Auto) 11 % (0-9) Eosinophils (%) (Auto) 1 % (0-3) Basophils (%) (Auto) 0 % (0-3) Neutrophils # (Auto) 11.0 x10^3/uL (1.8-7.7) Lymphocytes # (Auto) 1.1 x10^3/uL (1.0-4.8) Monocytes # (Auto) 1.6 x10^3/uL (0.0-1.1) Eosinophils # (Auto) 0.2 x10^3/uL (0.0-0.7) Basophils # (Auto) 0.0 x10^3/uL (0.0-0.2) Sodium Level 136 mmol/L (136-145) Potassium Level 3.5 mmol/L (3.5-5.1) Chloride Level 103 mmol/L (98-107) Carbon Dioxide Level 23 mmol/L (21-32) Anion Gap 10 (6-14) Blood Urea Nitrogen 66 mg/dL (8-26) Creatinine 2.9 mg/dL (0.7-1.3) Estimated GFR (Cockcroft-Gault) 21.2 BUN/Creatinine Ratio 23 (6-20) Glucose Level 283 mg/dL (70-99) Calcium Level 6.7 mg/dL (8.5-10.1) Phosphorus Level 3.7 mg/dL (2.6-4.7) Magnesium Level 2.3 mg/dL (1.8-2.4) Total Bilirubin 0.3 mg/dL (0.2-1.0) Aspartate Amino Transf (AST/SGOT) 33 U/L (15-37) Alanine Aminotransferase (ALT/SGPT) 12 U/L (16-63) Alkaline Phosphatase 129 U/L (46-116) Total Protein 3.6 g/dL (6.4-8.2) Albumin 1.0 g/dL (3.4-5.0) Albumin/Globulin Ratio 0.4 (1.0-1.7) Test 06/17/19 08:00 O2 Saturation 93 % (92-99) Arterial Blood pH 7.40 (7.35-7.45) Arterial Blood pCO2 at Patient Temp 36 mmHg (35-46) Arterial Blood pO2 at Patient Temp 70 mmHg (65-108) Arterial Blood HCO3 22 mmol/L (21-28) Arterial Blood Base Excess -3 mmol/L (-3-3) FiO2 60 Laboratory Tests Test 06/16/19 17:59 06/16/19 22:37 06/17/19 02:07 06/17/19 06:17 Glucose (Fingerstick) 201 mg/dL (70-99) 235 mg/dL (70-99) 258 mg/dL (70-99) 251 mg/dL (70-99) Test 06/17/19 06:30 06/17/19 08:00 White Blood Count 13.9 x10^3/uL (4.0-11.0) Red Blood Count 3.37 x10^6/uL (4.30-5.70) Hemoglobin 10.6 g/dL (13.0-17.5) Hematocrit 31.9 % (39.0-53.0) Mean Corpuscular Volume 95 fL (79-100) Mean Corpuscular Hemoglobin 32 pg (25-35) Mean Corpuscular Hemoglobin Concent 33 g/dL (31-37) Red Cell Distribution Width 14.8 % (11.5-14.5) Platelet Count 166 x10^3/uL (140-400) Neutrophils (%) (Auto) 80 % (31-73) Lymphocytes (%) (Auto) 8 % (24-48) Monocytes (%) (Auto) 11 % (0-9) Eosinophils (%) (Auto) 1 % (0-3) Basophils (%) (Auto) 0 % (0-3) Neutrophils # (Auto) 11.0 x10^3/uL (1.8-7.7) Lymphocytes # (Auto) 1.1 x10^3/uL (1.0-4.8) Monocytes # (Auto) 1.6 x10^3/uL (0.0-1.1) Eosinophils # (Auto) 0.2 x10^3/uL (0.0-0.7) Basophils # (Auto) 0.0 x10^3/uL (0.0-0.2) Sodium Level 136 mmol/L (136-145) Potassium Level 3.5 mmol/L (3.5-5.1) Chloride Level 103 mmol/L (98-107) Carbon Dioxide Level 23 mmol/L (21-32) Anion Gap 10 (6-14) Blood Urea Nitrogen 66 mg/dL (8-26) Creatinine 2.9 mg/dL (0.7-1.3) Estimated GFR (Cockcroft-Gault) 21.2 BUN/Creatinine Ratio 23 (6-20) Glucose Level 283 mg/dL (70-99) Calcium Level 6.7 mg/dL (8.5-10.1) Phosphorus Level 3.7 mg/dL (2.6-4.7) Magnesium Level 2.3 mg/dL (1.8-2.4) Total Bilirubin 0.3 mg/dL (0.2-1.0) Aspartate Amino Transf (AST/SGOT) 33 U/L (15-37) Alanine Aminotransferase (ALT/SGPT) 12 U/L (16-63) Alkaline Phosphatase 129 U/L (46-116) Total Protein 3.6 g/dL (6.4-8.2) Albumin 1.0 g/dL (3.4-5.0) Albumin/Globulin Ratio 0.4 (1.0-1.7) O2 Saturation 93 % (92-99) Arterial Blood pH 7.40 (7.35-7.45) Arterial Blood pCO2 at Patient Temp 36 mmHg (35-46) Arterial Blood pO2 at Patient Temp 70 mmHg (65-108) Arterial Blood HCO3 22 mmol/L (21-28) Arterial Blood Base Excess -3 mmol/L (-3-3) FiO2 60 Medications Active Scripts Medications Dose Route/Sig Max Daily Dose Days Date Category Foltx Tablet (B12/Levomefolate Calcium/B-6) 1 Each Tablet 1 Each PO AFTRNOON 06/07/19 Reported Testosterone Cypionate 200 Mg/1 Ml Vial 1 Ml IM Q2WKS 06/07/19 Reported Novolog Mix 70-30 Flexpen Syrn (Insuln Asp Prt/Insulin Aspart) 100 Unit/1 Ml Insuln.pen 1 Unit SQ BIDACBL 06/07/19 Reported Lantus Solostar (Insulin Glargine,Hum.rec.anlog) 100 Unit/1 Ml Insuln.pen 30 Unit SQ QHS 06/07/19 Reported Nifedipine Er (Nifedipine) 60 Mg Tab.er.24 1 Tab PO DAILY 06/07/19 Reported Morphine Sulfate Er (Morphine Sulfate) 60 Mg Tablet.er 1 Tab PO BID 06/07/19 Reported Furosemide 40 Mg Tablet 40 Mg PO DAILY 06/07/19 Reported Finasteride 5 Mg Tablet 1 Tab PO DAILY 06/07/19 Reported Simvastatin 40 Mg Tablet 1 Tab PO QHS 06/07/19 Reported Metoprolol Succinate ( Xl ) (Metoprolol Succinate) 200 Mg Tab.er.24h 1 Tab PO DAILY 06/07/19 Reported Levothyroxine Sodium 175 Mcg Tablet 1 Tab PO DAILY 06/07/19 Reported Losartan-Hctz 100-12.5 Mg Tab (Losartan/Hydrochlorothiazide) 1 Each Tablet 1 Tab PO DAILY 06/07/19 Reported Impression . 1. Abnormal x-ray secondary to atelectasis/CHF 2. Respiratory FAILURE MULTIFACTORIAL NOW S/P OR FOR ID OF SHOULDER 3. Erosive gastritis. 4. Diarrhea. 5. Coronary artery disease, status post coronary artery bypass grafting. 6, COLONIC ILEUS 7. SEPSIS WITH HYPOTENSION 8. SHOULDER ABSCESS 9. RENATA Plan . STILL VERY ILL WILL CONTINUE SUPPORT D/W CXR REVIEWED WEAN PRESSORS TOLERATD HD PER NEPHRO ABG NOTED COMPENSATED IV FLUIDS PER NEPHRO OVERALL PROGNOSIS IS GUARDED ANTI BX PER ID CCT 30 MIN FORMULATING A PLAN, REVIEWING DATA, LABS, CXR EDMAR GARG MD Jun 17, 2019 14:18
[2019-06-17] MEDS: DAPTOmycin (GENERIC) IVPB 560 MG in IV NORMAL SALINE 50ML 50 ML IV SCH (14:29)
--- NOTE | 2019-06-17 15:13 | PDOC ---
Infectious Disease Note Subjective Subjective Remains intubated FiO2 up to 60% PEEP 7 Sedated Pressors No fevers last 24 hours + diarrhea TPN ROS ROS unobtainable Vital Sign Vital Signs Vital Signs Date Time Temp Pulse Resp B/P (MAP) Pulse Ox O2 Delivery O2 Flow Rate FiO2 06/17/19 13:00 87 21 106/62 (77) 98 Ventilator 06/17/19 12:00 99.4 99.4 06/17/19 02:11 2.0 Physical Exam PHYSICAL EXAM GENERAL: Orally intubated and sedated HEENT: Pupils are equal, NGT, ETT NECK: Supple LUNGS: Course HEART: S1, S2. ABDOMEN: Obese, soft + BS, + rectal tube : Bledsoe EXTREMITIES: Generalized edema. Left shoulder incison well-approx/thiago. SKIN: Without signs of rash NEUROLOGIC: Sedated Temp HDC (06/15) [facility] PIV Labs Lab Laboratory Tests Test 06/16/19 17:59 06/16/19 22:37 06/17/19 02:07 06/17/19 06:17 Glucose (Fingerstick) 201 mg/dL (70-99) 235 mg/dL (70-99) 258 mg/dL (70-99) 251 mg/dL (70-99) Test 06/17/19 06:30 06/17/19 08:00 White Blood Count 13.9 x10^3/uL (4.0-11.0) Red Blood Count 3.37 x10^6/uL (4.30-5.70) Hemoglobin 10.6 g/dL (13.0-17.5) Hematocrit 31.9 % (39.0-53.0) Mean Corpuscular Volume 95 fL (79-100) Mean Corpuscular Hemoglobin 32 pg (25-35) Mean Corpuscular Hemoglobin Concent 33 g/dL (31-37) Red Cell Distribution Width 14.8 % (11.5-14.5) Platelet Count 166 x10^3/uL (140-400) Neutrophils (%) (Auto) 80 % (31-73) Lymphocytes (%) (Auto) 8 % (24-48) Monocytes (%) (Auto) 11 % (0-9) Eosinophils (%) (Auto) 1 % (0-3) Basophils (%) (Auto) 0 % (0-3) Neutrophils # (Auto) 11.0 x10^3/uL (1.8-7.7) Lymphocytes # (Auto) 1.1 x10^3/uL (1.0-4.8) Monocytes # (Auto) 1.6 x10^3/uL (0.0-1.1) Eosinophils # (Auto) 0.2 x10^3/uL (0.0-0.7) Basophils # (Auto) 0.0 x10^3/uL (0.0-0.2) Sodium Level 136 mmol/L (136-145) Potassium Level 3.5 mmol/L (3.5-5.1) Chloride Level 103 mmol/L (98-107) Carbon Dioxide Level 23 mmol/L (21-32) Anion Gap 10 (6-14) Blood Urea Nitrogen 66 mg/dL (8-26) Creatinine 2.9 mg/dL (0.7-1.3) Estimated GFR (Cockcroft-Gault) 21.2 BUN/Creatinine Ratio 23 (6-20) Glucose Level 283 mg/dL (70-99) Calcium Level 6.7 mg/dL (8.5-10.1) Phosphorus Level 3.7 mg/dL (2.6-4.7) Magnesium Level 2.3 mg/dL (1.8-2.4) Total Bilirubin 0.3 mg/dL (0.2-1.0) Aspartate Amino Transf (AST/SGOT) 33 U/L (15-37) Alanine Aminotransferase (ALT/SGPT) 12 U/L (16-63) Alkaline Phosphatase 129 U/L (46-116) Total Protein 3.6 g/dL (6.4-8.2) Albumin 1.0 g/dL (3.4-5.0) Albumin/Globulin Ratio 0.4 (1.0-1.7) O2 Saturation 93 % (92-99) Arterial Blood pH 7.40 (7.35-7.45) Arterial Blood pCO2 at Patient Temp 36 mmHg (35-46) Arterial Blood pO2 at Patient Temp 70 mmHg (65-108) Arterial Blood HCO3 22 mmol/L (21-28) Arterial Blood Base Excess -3 mmol/L (-3-3) FiO2 60 IMPRESSION: Persistent low lung volumes with patchy atelectasis. No new consolidating infiltrate. Micro 8/28/19 Blood Culture - Preliminary, Resulted NO GROWTH AFTER 4 DAYS Left shoulder AEROBIC RES 1 Preliminary Beta hemolytic Streptococcus, group B AFB CULTURE GRAM STAIN Final Negative 06/14. GRAM STAIN RES 2 Final Comment Gram positive cocci in pairs and chains. Objective Assessment LUE abscess s/p 10 ml removal 06/13. group B strep -S/p Left shoulder open incision and drainage with arthrotomy, debridement of bone and bone cement, and joint irrigation 06/14 GPC in pairs/chains C. diff positive, 06/14 PCN allergy - Hives - believes has tolerated Cephalosporins per his RENATA requiring HD Hypotension - currently Levophed Post op resp failure - intubated - Pulm following Leukocytosis - worse but s/p Dexamethasone 06/14 preop and post op reactive ? Malik syndrome - GI following + BM yesterday rectal tube in CAD - Cardiology following H/o MRSA H/o Group B strep sepsis Erosive Gastritis s/p EGD 06/08 Urinary retention - Bledsoe placed 06/12 Fractures of 2 superior mediastinal wires Plan Plan of Care Cont Daptomycin Q 48 adjusted dose 06/14 Cont Meropenem renally dosed Cont Flagyl PO vanc Monitor labs/temp f/u cultures Contact isolation Critically ill D/w nursing Patient seen and examined. Chart reviewed in detail. Case discussed with FIELD SEISMOLOGIST. Agree with above plan. LALO SCHWARZ APRN Jun 17, 2019 15:13 LUCY ERWIN MD Jun 17, 2019 21:18
[2019-06-17] MEDS: INSULIN GLARGINE SYRINGE. SQ SCH (21:46)
[2019-06-17] MEDS: SIMVASTATIN 40 MG TABLET. PO SCH (21:47)
[2019-06-17] MEDS ORDERED: TOTAL PARENTERAL NUTRITION IV SCH ×10 (22:00)
[2019-06-17] MEDS ORDERED: [UNRECOGNIZED DRUG - OTHER] IV SCH ×10 (22:00)
[2019-06-17] MEDS ORDERED: DEXTROSE 70% IV SCH ×10 (22:00)
[2019-06-17] MEDS ORDERED: AMINO ACID IV SCH ×10 (22:00)
[2019-06-18] VITALS (30 sets, daily range): BP systolic 84–178; BP diastolic 54–96
[2019-06-18] MEDS: INSULIN LISPRO 300 UNITS/3 ML VIAL. SQ SCH ×5 (01:02→23:29)
[2019-06-18] MEDS: MIDAZOLAM 100mg/100ml NS BAG 100 ML IV PRN ×2 (01:04→20:17)
[2019-06-18] MEDS: NOREPINEPHRIN 8MG/250ML PREMIX 250 ML IV PRN ×2 (01:05→17:54)
[2019-06-18] MEDS: VASOPRESSIN 40 UNIT in IV DEXTROSE 5% 100ML 100 ML IV PRN (01:05)
[2019-06-18] MEDS: LEVOTHYROXINE 175 MCG TABLET PO SCH (06:00)
[2019-06-18] MEDS: IV 1/2 NORMAL SALINE 1,000 ML IV SCH ×3 (06:05→21:03)
[2019-06-18 06:20] LABS: BASO % 0 % (0-3); EOS # 0.2 x10^3/uL (0.0-0.7); EOS % 1 % (0-3); HEMOGLOBIN 10.4 g/dL (13.0-17.5); LYMPH # 1.1 x10^3/uL (1.0-4.8); LYMPH % 8 % (24-48); MEAN CORPUSCULAR HEMOGLOBIN 32 pg (25-35); MEAN CORPUSCULAR HGB CONC 34 g/dL (31-37); MEAN CORPUSCULAR VOLUME 94 fL (79-100); MONO # 1.3 x10^3/uL (0.0-1.1); MONO % 9 % (0-9); NEUT # 12.2 x10^3/uL (1.8-7.7); NEUT % 82 % (31-73); PLATELET COUNT 155 x10^3/uL (140-400); RED BLOOD COUNT 3.29 x10^6/uL (4.30-5.70); RED CELL DISTRIBUTION WIDTH 14.5 % (11.5-14.5); WHITE BLOOD COUNT 14.8 x10^3/uL (4.0-11.0)
[2019-06-18 06:43] LABS: ALBUMIN 0.9 g/dL (3.4-5.0); ALBUMIN/GLOBULIN RATIO 0.3 (1.0-1.7); CREATININE 3.5 mg/dL (0.7-1.3); GFR 17.1; PHOSPHORUS 3.9 mg/dL (2.6-4.7); POTASSIUM 3.4 mmol/L (3.5-5.1); TOTAL BILIRUBIN 0.4 mg/dL (0.2-1.0)
--- NOTE | 2019-06-18 07:57 | PDOC ---
Infectious Disease Note Subjective Subjective Remains intubated FiO2 up to 60% PEEP 7 Sedated Pressors No fevers last 24 hours + diarrhea TPN Vital Sign Vital Signs Vital Signs Date Time Temp Pulse Resp B/P (MAP) Pulse Ox O2 Delivery O2 Flow Rate FiO2 06/18/19 06:57 100 2.0 06/18/19 06:00 82 22 96/54 (68) Ventilator 06/18/19 04:00 98.0 98.0 Physical Exam PHYSICAL EXAM GENERAL: Orally intubated and sedated HEENT: Pupils are equal, NGT, ETT NECK: Supple LUNGS: Course HEART: S1, S2. ABDOMEN: Obese, soft + BS, + rectal tube : Bledsoe EXTREMITIES: Generalized edema. Left shoulder incison well-approx/thiago. SKIN: Without signs of rash NEUROLOGIC: Sedated Temp HDC (06/15) [facility] PIV Labs Lab Laboratory Tests Test 06/17/19 08:00 06/17/19 12:48 06/17/19 18:16 06/17/19 21:45 O2 Saturation 93 % (92-99) Arterial Blood pH 7.40 (7.35-7.45) Arterial Blood pCO2 at Patient Temp 36 mmHg (35-46) Arterial Blood pO2 at Patient Temp 70 mmHg (65-108) Arterial Blood HCO3 22 mmol/L (21-28) Arterial Blood Base Excess -3 mmol/L (-3-3) FiO2 60 Glucose (Fingerstick) 106 mg/dL (70-99) 218 mg/dL (70-99) 336 mg/dL (70-99) Test 06/18/19 01:01 06/18/19 06:08 Glucose (Fingerstick) 314 mg/dL (70-99) White Blood Count 14.8 x10^3/uL (4.0-11.0) Red Blood Count 3.29 x10^6/uL (4.30-5.70) Hemoglobin 10.4 g/dL (13.0-17.5) Hematocrit 31.0 % (39.0-53.0) Mean Corpuscular Volume 94 fL (79-100) Mean Corpuscular Hemoglobin 32 pg (25-35) Mean Corpuscular Hemoglobin Concent 34 g/dL (31-37) Red Cell Distribution Width 14.5 % (11.5-14.5) Platelet Count 155 x10^3/uL (140-400) Neutrophils (%) (Auto) 82 % (31-73) Lymphocytes (%) (Auto) 8 % (24-48) Monocytes (%) (Auto) 9 % (0-9) Eosinophils (%) (Auto) 1 % (0-3) Basophils (%) (Auto) 0 % (0-3) Neutrophils # (Auto) 12.2 x10^3/uL (1.8-7.7) Lymphocytes # (Auto) 1.1 x10^3/uL (1.0-4.8) Monocytes # (Auto) 1.3 x10^3/uL (0.0-1.1) Eosinophils # (Auto) 0.2 x10^3/uL (0.0-0.7) Basophils # (Auto) 0.0 x10^3/uL (0.0-0.2) Sodium Level 135 mmol/L (136-145) Potassium Level 3.4 mmol/L (3.5-5.1) Chloride Level 103 mmol/L (98-107) Carbon Dioxide Level 22 mmol/L (21-32) Anion Gap 10 (6-14) Blood Urea Nitrogen 79 mg/dL (8-26) Creatinine 3.5 mg/dL (0.7-1.3) Estimated GFR (Cockcroft-Gault) 17.1 BUN/Creatinine Ratio 23 (6-20) Glucose Level 348 mg/dL (70-99) Calcium Level 7.0 mg/dL (8.5-10.1) Phosphorus Level 3.9 mg/dL (2.6-4.7) Magnesium Level 2.0 mg/dL (1.8-2.4) Total Bilirubin 0.4 mg/dL (0.2-1.0) Aspartate Amino Transf (AST/SGOT) 24 U/L (15-37) Alanine Aminotransferase (ALT/SGPT) 8 U/L (16-63) Alkaline Phosphatase 104 U/L (46-116) Total Protein 4.0 g/dL (6.4-8.2) Albumin 0.9 g/dL (3.4-5.0) Albumin/Globulin Ratio 0.3 (1.0-1.7) Micro Microbiology 06/14/19 AFB Specimen Processing Tissue - Final, Resulted 06/14/19 Acid Fast Bacilli Culture, Resulted Pending 06/14/19 Gram Stain - Final, Resulted 06/14/19 Fungal Culture, Resulted Pending 06/14/19 Fungal Culture Result 1, Resulted Pending 06/13/19 Blood Culture - Preliminary, Resulted NO GROWTH AFTER 4 DAYS Objective Assessment LUE abscess s/p 10 ml removal 06/13. group B strep -S/p Left shoulder open incision and drainage with arthrotomy, debridement of bone and bone cement, and joint irrigation 06/14 G B strep C. diff positive, 06/14 PCN allergy - Hives - believes has tolerated Cephalosporins per his RENATA requiring HD Hypotension - currently Levophed Post op resp failure - intubated - Pulm following Leukocytosis - worse but s/p Dexamethasone 06/14 preop and post op reactive ? [place] syndrome - GI following + BM yesterday rectal tube in CAD - Cardiology following H/o MRSA H/o Group B strep sepsis Erosive Gastritis s/p EGD 06/08 Urinary retention - Bledsoe placed 06/12 Fractures of 2 superior mediastinal wires Plan Plan of Care d/c Daptomycin Q 48 adjusted dose 06/14 Cont Meropenem renally dosed Cont Flagyl PO vanc Monitor labs/temp f/u cultures Contact isolation Critically ill D/w nursing detention prognosis poor AP PEACE MD Jun 18, 2019 07:56
[2019-06-18] MEDS: PANTOPRAZOLE IV PUSH 40 MG VIAL. IVP SCH (08:25)
[2019-06-18] MEDS: FINASTERIDE 5 MG TABLET. PO SCH (09:00)
[2019-06-18] MEDS: VITAMIN B COMPLEX TABLET. PO SCH (09:00)
[2019-06-18] MEDS: MORPHINE ER 30 MG TABLET.ER PO SCH ×2 (09:00→21:00)
[2019-06-18 09:22] LABS: BASE EXCESS ABG -6 mmol/L (-3-3); HCO3 ABG 20 mmol/L (21-28); PCO2 ABG 36 mmHg (35-46); PO2 ABG 137 mmHg (65-108); SAT O2 ABG 98 % (92-99)
[2019-06-18 09:26] LABS: FIO2 ABG 60
--- NOTE | 2019-06-18 09:38 | PDOC ---
GENERAL General: vss and afebrile. blood pressures little better and attempt to decrease pressors ongoing. sedate and on ventilator with 60% FiO2 and 7 of PEEP. pO2 increased to 137 this am. Hb 10.4. WBC 14.8K. Group A beta hemolytic strep on shoulder cultures and ongoing IV antibiotics with dapto stopped yestedrday. ongoing treatment for c. diff. BUN 79 and creatinine 3.5 with ongoing dialysis. continue supportive care. overall slow improvement. VITAL SIGNS/I&O Vital Signs/I&O: Vital Signs Date Time Temp Pulse Resp B/P (MAP) Pulse Ox O2 Delivery O2 Flow Rate FiO2 06/18/19 09:10 100 Ventilator 06/18/19 09:00 81 17 112/62 (79) 06/18/19 08:00 97.2 97.2 06/18/19 06:57 2.0 I & O 06/17/19 06/17/19 06/18/19 14:59 22:59 06:59 Intake Total 200 ml 3378.69 ml 3096 ml Output Total 537 ml 462 ml 175 ml Balance -337 ml 2916.69 ml 2921 ml ALLERGIES Allergies: Allergies Coded Allergies Type Severity Reaction Last Updated Verified Penicillins Allergy Intermediate 06/14/19 Yes tapentadol Allergy Intermediate 06/14/19 Yes MEDS Medications: Current Medications Medications (Trade) Dose Ordered Sig/Lauren Route PRN Reason Start Time Stop Time Status Last Admin Dose Admin Sodium Chloride 90 meq/Potassium Chloride 50 meq/ Potassium Phosphate 13.6 mmol/Magnesium Sulfate 10 meq/ Calcium Gluconate 10 meq/ Multivitamins 10 ml/Chromium/ Copper/Manganese/ Seleni/Zn 1 ml/ Total Parenteral Nutrition/Amino Acids/Dextrose/ Fat Emulsion Intravenous 1,512 ml @ 63 mls/hr TPN CONT IV 06/17/19 22:00 06/18/19 21:59 06/17/19 21:48 LAB Lab: Laboratory Tests Test 06/17/19 12:48 06/17/19 18:16 06/17/19 21:45 06/18/19 01:01 Glucose (Fingerstick) 106 mg/dL (70-99) H 218 mg/dL (70-99) H 336 mg/dL (70-99) H 314 mg/dL (70-99) H Test 06/18/19 06:08 06/18/19 09:15 White Blood Count 14.8 x10^3/uL (4.0-11.0) H Red Blood Count 3.29 x10^6/uL (4.30-5.70) L Hemoglobin 10.4 g/dL (13.0-17.5) L Hematocrit 31.0 % (39.0-53.0) L Mean Corpuscular Volume 94 fL (79-100) Mean Corpuscular Hemoglobin 32 pg (25-35) Mean Corpuscular Hemoglobin Concent 34 g/dL (31-37) Red Cell Distribution Width 14.5 % (11.5-14.5) Platelet Count 155 x10^3/uL (140-400) Neutrophils (%) (Auto) 82 % (31-73) H Lymphocytes (%) (Auto) 8 % (24-48) L Monocytes (%) (Auto) 9 % (0-9) Eosinophils (%) (Auto) 1 % (0-3) Basophils (%) (Auto) 0 % (0-3) Neutrophils # (Auto) 12.2 x10^3/uL (1.8-7.7) H Lymphocytes # (Auto) 1.1 x10^3/uL (1.0-4.8) Monocytes # (Auto) 1.3 x10^3/uL (0.0-1.1) H Eosinophils # (Auto) 0.2 x10^3/uL (0.0-0.7) Basophils # (Auto) 0.0 x10^3/uL (0.0-0.2) Sodium Level 135 mmol/L (136-145) L Potassium Level 3.4 mmol/L (3.5-5.1) L Chloride Level 103 mmol/L (98-107) Carbon Dioxide Level 22 mmol/L (21-32) Anion Gap 10 (6-14) Blood Urea Nitrogen 79 mg/dL (8-26) H Creatinine 3.5 mg/dL (0.7-1.3) H Estimated GFR (Cockcroft-Gault) 17.1 BUN/Creatinine Ratio 23 (6-20) H Glucose Level 348 mg/dL (70-99) H Calcium Level 7.0 mg/dL (8.5-10.1) L Phosphorus Level 3.9 mg/dL (2.6-4.7) Magnesium Level 2.0 mg/dL (1.8-2.4) Total Bilirubin 0.4 mg/dL (0.2-1.0) Aspartate Amino Transferase (AST) 24 U/L (15-37) Alanine Aminotransferase (ALT) 8 U/L (16-63) L Alkaline Phosphatase 104 U/L (46-116) Total Protein 4.0 g/dL (6.4-8.2) L Albumin 0.9 g/dL (3.4-5.0) L Albumin/Globulin Ratio 0.3 (1.0-1.7) L O2 Saturation 98 % (92-99) Arterial Blood pH 7.35 (7.35-7.45) Arterial Blood pCO2 at Patient Temp 36 mmHg (35-46) Arterial Blood pO2 at Patient Temp 137 mmHg (65-108) H Arterial Blood HCO3 20 mmol/L (21-28) L Arterial Blood Base Excess -6 mmol/L (-3-3) L FiO2 60 Laboratory Tests 06/18/19 06:08 Laboratory Tests 06/18/19 06:08 RENATO MARTE MD Jun 18, 2019 09:38
--- NOTE | 2019-06-18 09:39 | PDOC ---
G I PROGRESS NOTE Reason for Follow-up Ileus/C diff colitis Subjective Sedated/intubated Physical Exam Lungs decreased BS CV S1 S2 ABD distended, soft, hypoactive BS Review of Relevant I have reviewed the following items john (where applicable) has been applied. Labs Laboratory Tests Test 06/16/19 13:36 06/16/19 17:59 06/16/19 22:37 06/17/19 02:07 Glucose (Fingerstick) 199 mg/dL (70-99) 201 mg/dL (70-99) 235 mg/dL (70-99) 258 mg/dL (70-99) Test 06/17/19 06:17 06/17/19 06:30 06/17/19 08:00 06/17/19 12:48 Glucose (Fingerstick) 251 mg/dL (70-99) 106 mg/dL (70-99) White Blood Count 13.9 x10^3/uL (4.0-11.0) Red Blood Count 3.37 x10^6/uL (4.30-5.70) Hemoglobin 10.6 g/dL (13.0-17.5) Hematocrit 31.9 % (39.0-53.0) Mean Corpuscular Volume 95 fL (79-100) Mean Corpuscular Hemoglobin 32 pg (25-35) Mean Corpuscular Hemoglobin Concent 33 g/dL (31-37) Red Cell Distribution Width 14.8 % (11.5-14.5) Platelet Count 166 x10^3/uL (140-400) Neutrophils (%) (Auto) 80 % (31-73) Lymphocytes (%) (Auto) 8 % (24-48) Monocytes (%) (Auto) 11 % (0-9) Eosinophils (%) (Auto) 1 % (0-3) Basophils (%) (Auto) 0 % (0-3) Neutrophils # (Auto) 11.0 x10^3/uL (1.8-7.7) Lymphocytes # (Auto) 1.1 x10^3/uL (1.0-4.8) Monocytes # (Auto) 1.6 x10^3/uL (0.0-1.1) Eosinophils # (Auto) 0.2 x10^3/uL (0.0-0.7) Basophils # (Auto) 0.0 x10^3/uL (0.0-0.2) Sodium Level 136 mmol/L (136-145) Potassium Level 3.5 mmol/L (3.5-5.1) Chloride Level 103 mmol/L (98-107) Carbon Dioxide Level 23 mmol/L (21-32) Anion Gap 10 (6-14) Blood Urea Nitrogen 66 mg/dL (8-26) Creatinine 2.9 mg/dL (0.7-1.3) Estimated GFR (Cockcroft-Gault) 21.2 BUN/Creatinine Ratio 23 (6-20) Glucose Level 283 mg/dL (70-99) Calcium Level 6.7 mg/dL (8.5-10.1) Phosphorus Level 3.7 mg/dL (2.6-4.7) Magnesium Level 2.3 mg/dL (1.8-2.4) Total Bilirubin 0.3 mg/dL (0.2-1.0) Aspartate Amino Transf (AST/SGOT) 33 U/L (15-37) Alanine Aminotransferase (ALT/SGPT) 12 U/L (16-63) Alkaline Phosphatase 129 U/L (46-116) Total Protein 3.6 g/dL (6.4-8.2) Albumin 1.0 g/dL (3.4-5.0) Albumin/Globulin Ratio 0.4 (1.0-1.7) O2 Saturation 93 % (92-99) Arterial Blood pH 7.40 (7.35-7.45) Arterial Blood pCO2 at Patient Temp 36 mmHg (35-46) Arterial Blood pO2 at Patient Temp 70 mmHg (65-108) Arterial Blood HCO3 22 mmol/L (21-28) Arterial Blood Base Excess -3 mmol/L (-3-3) FiO2 60 Test 06/17/19 18:16 06/17/19 21:45 06/18/19 01:01 06/18/19 06:08 Glucose (Fingerstick) 218 mg/dL (70-99) 336 mg/dL (70-99) 314 mg/dL (70-99) White Blood Count 14.8 x10^3/uL (4.0-11.0) Red Blood Count 3.29 x10^6/uL (4.30-5.70) Hemoglobin 10.4 g/dL (13.0-17.5) Hematocrit 31.0 % (39.0-53.0) Mean Corpuscular Volume 94 fL (79-100) Mean Corpuscular Hemoglobin 32 pg (25-35) Mean Corpuscular Hemoglobin Concent 34 g/dL (31-37) Red Cell Distribution Width 14.5 % (11.5-14.5) Platelet Count 155 x10^3/uL (140-400) Neutrophils (%) (Auto) 82 % (31-73) Lymphocytes (%) (Auto) 8 % (24-48) Monocytes (%) (Auto) 9 % (0-9) Eosinophils (%) (Auto) 1 % (0-3) Basophils (%) (Auto) 0 % (0-3) Neutrophils # (Auto) 12.2 x10^3/uL (1.8-7.7) Lymphocytes # (Auto) 1.1 x10^3/uL (1.0-4.8) Monocytes # (Auto) 1.3 x10^3/uL (0.0-1.1) Eosinophils # (Auto) 0.2 x10^3/uL (0.0-0.7) Basophils # (Auto) 0.0 x10^3/uL (0.0-0.2) Sodium Level 135 mmol/L (136-145) Potassium Level 3.4 mmol/L (3.5-5.1) Chloride Level 103 mmol/L (98-107) Carbon Dioxide Level 22 mmol/L (21-32) Anion Gap 10 (6-14) Blood Urea Nitrogen 79 mg/dL (8-26) Creatinine 3.5 mg/dL (0.7-1.3) Estimated GFR (Cockcroft-Gault) 17.1 BUN/Creatinine Ratio 23 (6-20) Glucose Level 348 mg/dL (70-99) Calcium Level 7.0 mg/dL (8.5-10.1) Phosphorus Level 3.9 mg/dL (2.6-4.7) Magnesium Level 2.0 mg/dL (1.8-2.4) Total Bilirubin 0.4 mg/dL (0.2-1.0) Aspartate Amino Transf (AST/SGOT) 24 U/L (15-37) Alanine Aminotransferase (ALT/SGPT) 8 U/L (16-63) Alkaline Phosphatase 104 U/L (46-116) Total Protein 4.0 g/dL (6.4-8.2) Albumin 0.9 g/dL (3.4-5.0) Albumin/Globulin Ratio 0.3 (1.0-1.7) Test 06/18/19 09:15 O2 Saturation 98 % (92-99) Arterial Blood pH 7.35 (7.35-7.45) Arterial Blood pCO2 at Patient Temp 36 mmHg (35-46) Arterial Blood pO2 at Patient Temp 137 mmHg (65-108) Arterial Blood HCO3 20 mmol/L (21-28) Arterial Blood Base Excess -6 mmol/L (-3-3) FiO2 60 Laboratory Tests Test 06/17/19 12:48 06/17/19 18:16 06/17/19 21:45 06/18/19 01:01 Glucose (Fingerstick) 106 mg/dL (70-99) 218 mg/dL (70-99) 336 mg/dL (70-99) 314 mg/dL (70-99) Test 06/18/19 06:08 06/18/19 09:15 White Blood Count 14.8 x10^3/uL (4.0-11.0) Red Blood Count 3.29 x10^6/uL (4.30-5.70) Hemoglobin 10.4 g/dL (13.0-17.5) Hematocrit 31.0 % (39.0-53.0) Mean Corpuscular Volume 94 fL (79-100) Mean Corpuscular Hemoglobin 32 pg (25-35) Mean Corpuscular Hemoglobin Concent 34 g/dL (31-37) Red Cell Distribution Width 14.5 % (11.5-14.5) Platelet Count 155 x10^3/uL (140-400) Neutrophils (%) (Auto) 82 % (31-73) Lymphocytes (%) (Auto) 8 % (24-48) Monocytes (%) (Auto) 9 % (0-9) Eosinophils (%) (Auto) 1 % (0-3) Basophils (%) (Auto) 0 % (0-3) Neutrophils # (Auto) 12.2 x10^3/uL (1.8-7.7) Lymphocytes # (Auto) 1.1 x10^3/uL (1.0-4.8) Monocytes # (Auto) 1.3 x10^3/uL (0.0-1.1) Eosinophils # (Auto) 0.2 x10^3/uL (0.0-0.7) Basophils # (Auto) 0.0 x10^3/uL (0.0-0.2) Sodium Level 135 mmol/L (136-145) Potassium Level 3.4 mmol/L (3.5-5.1) Chloride Level 103 mmol/L (98-107) Carbon Dioxide Level 22 mmol/L (21-32) Anion Gap 10 (6-14) Blood Urea Nitrogen 79 mg/dL (8-26) Creatinine 3.5 mg/dL (0.7-1.3) Estimated GFR (Cockcroft-Gault) 17.1 BUN/Creatinine Ratio 23 (6-20) Glucose Level 348 mg/dL (70-99) Calcium Level 7.0 mg/dL (8.5-10.1) Phosphorus Level 3.9 mg/dL (2.6-4.7) Magnesium Level 2.0 mg/dL (1.8-2.4) Total Bilirubin 0.4 mg/dL (0.2-1.0) Aspartate Amino Transf (AST/SGOT) 24 U/L (15-37) Alanine Aminotransferase (ALT/SGPT) 8 U/L (16-63) Alkaline Phosphatase 104 U/L (46-116) Total Protein 4.0 g/dL (6.4-8.2) Albumin 0.9 g/dL (3.4-5.0) Albumin/Globulin Ratio 0.3 (1.0-1.7) O2 Saturation 98 % (92-99) Arterial Blood pH 7.35 (7.35-7.45) Arterial Blood pCO2 at Patient Temp 36 mmHg (35-46) Arterial Blood pO2 at Patient Temp 137 mmHg (65-108) Arterial Blood HCO3 20 mmol/L (21-28) Arterial Blood Base Excess -6 mmol/L (-3-3) FiO2 60 Microbiology 06/14/19 AFB Specimen Processing Tissue - Final, Resulted 06/14/19 Acid Fast Bacilli Culture, Resulted Pending 06/14/19 Gram Stain - Final, Resulted 06/14/19 Fungal Culture, Resulted Pending 06/14/19 Fungal Culture Result 1, Resulted Pending 06/13/19 Blood Culture - Preliminary, Resulted NO GROWTH AFTER 4 DAYS Medications Current Medications Pantoprazole Sodium (PROTONIX VIAL for IV PUSH) 40 mg BID IVP Last administered on 06/11/19at 09:22; Start 06/07/19 at 21:00; Stop 06/11/19 at 12:41; Status DC Sodium Chloride 1,000 ml @ 75 mls/hr [id number] IV Last administered on 06/09/19at 11:36; Start 06/07/19 at 16:30; Stop 06/09/19 at 12:08; Status DC Bisacodyl (Dulcolax Supp) 10 mg 1X ONCE [place] Last administered on 06/07/19at 21:40; Start 06/07/19 at 17:45; Stop 06/07/19 at 17:46; Status DC Hydromorphone HCl (Dilaudid) 1 mg PRN Q4HRS PRN IVP PAIN Last administered on 06/07/19at 18:04; Start 06/07/19 at 17:45; Stop 06/07/19 at 21:48; Status DC Lorazepam (Ativan) 0.5 mg PRN Q6HRS PRN PO ANXIETY / AGITATION; Start 06/07/19 at 18:00; Stop 06/07/19 at 18:14; Status DC Nicotine (Nicoderm Cq 21mg) 1 patch PRN DAILY PRN TD SMOKING CESSATION; Start 06/07/19 at 18:00; Stop 06/07/19 at 18:14; Status DC Hydromorphone HCl (Dilaudid) 2 mg PRN Q3HRS PRN IV PAIN Last administered on 06/14/19at 12:39; Start 06/07/19 at 22:00; Stop 06/14/19 at 23:55; Status DC Ringer's Solution 1,000 ml @ 75 mls/hr [id number] IV Last administered on 06/08/19at 14:01; Start 06/08/19 at 09:15; Stop 06/09/19 at 08:01; Status DC Propofol 20 ml @ As Directed STK-MED ONCE IV ; Start 06/08/19 at 10:20; Stop 06/08/19 at 10:20; Status DC Lidocaine HCl (Lidocaine Pf 2% Vial) 5 ml STK-MED ONCE .ROUTE ; Start 06/08/19 at 10:20; Stop 06/08/19 at 10:20; Status DC Finasteride (Proscar) 5 mg DAILY PO Last administered on 06/15/19 07:36; Start 06/08/19 at 12:00 Furosemide (Lasix) 40 mg DAILY PO Last administered on 06/12/19 08:36; Start 06/08/19 at 12:00; Stop 06/14/19 at 13:01; Status DC Levothyroxine Sodium (Synthroid) 175 mcg DAILY06 PO Last administered on 06/15/19 07:36; Start 06/08/19 at 12:00 Simvastatin (Zocor) 40 mg QHS PO Last administered on 06/17/19 21:48; Start 06/08/19 at 21:00 Testosterone Cypionate (Depo-Testosterone) 200 mg Q2WKS IM ; Start 06/22/19 at 09:00 Vitamin B Complex (Bud B) 1 tab DAILY PO Last administered on 06/12/19 08:36; Start 06/08/19 at 12:00 Insulin Glargine (Lantus Syringe) 30 unit QHS SQ Last administered on 06/17/19 21:48; Start 06/08/19 at 21:00 Non-Formulary Medication (Insuln Asp Prt/ Insulin Aspart (Novolog Mix 70-30 Flexpen Syrn)) 1 unit BIDACBL SQ ; Start 06/08/19 at 11:30; Stop 06/08/19 at 19:34; Status DC Losartan Potassium (Cozaar) 100 mg DAILY PO Last administered on 06/12/19 08:36; Start 06/08/19 at 12:00; Stop 06/14/19 at 13:01; Status DC Metoprolol Succinate (Toprol Xl) 200 mg DAILY PO Last administered on 06/12/19 08:36; Start 06/08/19 at 12:00; Stop 06/14/19 at 13:01; Status DC Morphine Sulfate (Ms Contin) 60 mg BID PO Last administered on 06/15/19 07:36; Start 06/08/19 at 12:00 Nifedipine (Procardia Xl) 60 mg DAILY PO Last administered on 8/27/19at 08:36; Start 06/08/19 at 12:00; Stop 06/14/19 at 13:01; Status DC Insulin Human Lispro (HumaLOG) 0-5 UNITS TIDWMEALS SQ Last administered on 06/09/19at 11:36; Start 06/08/19 at 17:00; Stop 06/09/19 at 11:38; Status DC Dextrose (Dextrose 50%-Water Syringe) 12.5 gm PRN Q15MIN PRN IV SEE COMMENTS; Start 06/08/19 at 15:30; Stop 06/09/19 at 15:19; Status DC Dextrose 250 ml PRN Q15MIN PRN IV SEE COMMENTS; Start 06/08/19 at 15:30; Stop 06/09/19 at 15:19; Status DC Insulin Human Lispro (HumaLOG) 0-9 UNITS TIDWMEALS SQ Last administered on 06/16/19at 08:27; Start 06/09/19 at 12:00; Stop 06/16/19 at 09:54; Status DC Dextrose (Dextrose 50%-Water Syringe) 12.5 gm PRN Q15MIN PRN IV SEE COMMENTS; Start 06/09/19 at 11:45 Dextrose 250 ml PRN Q15MIN PRN IV SEE COMMENTS; Start 06/09/19 at 11:45; Stop 06/09/19 at 15:19; Status DC Pantoprazole Sodium (Protonix) 40 mg DAILYAC PO Last administered on 06/12/19at 08:36; Start 06/12/19 at 07:30; Stop 06/13/19 at 13:27; Status DC Polyethylene Glycol (miraLAX PACKET) 17 gm DAILY PO ; Start 06/12/19 at 09:00; Stop 06/12/19 at 12:28; Status DC Polyethylene Glycol (miraLAX PACKET) 17 gm PRN DAILY PRN PO CONSTIPATION, 1ST CHOICE; Start 06/11/19 at 15:45 Bisacodyl (Dulcolax Tab) 5 mg PRN DAILY PRN PO CONSTIPATION, 2ND CHOICE; Start 06/11/19 at 15:45 Tamsulosin HCl (Flomax) 0.4 mg QHS PO Last administered on 06/12/19at 21:26; Start 06/12/19 at 21:00; Stop 06/14/19 at 13:01; Status DC Finasteride (Proscar) 5 mg DAILY PO ; Start 06/12/19 at 12:00; Stop 06/13/19 at 09:39; Status DC Sodium Chloride 500 ml @ 500 mls/hr 1X ONCE IV Last administered on 06/13/19at 12:45; Start 06/13/19 at 10:00; Stop 06/13/19 at 10:59; Status DC Ondansetron HCl (Zofran) 4 mg PRN Q6HRS PRN IV NAUSEA/VOMITING; Start 06/13/19 at 09:45; Status UNV Sodium Chloride 1,000 ml @ 125 mls/hr Q8H IV Last administered on 06/14/19at 08:48; Start 06/13/19 at 11:00; Stop 06/15/19 at 07:11; Status DC Ondansetron HCl (Zofran) 4 mg PRN Q4HRS PRN IV NAUSEA/VOMITING Last administered on 06/13/19at 22:15; Start 06/13/19 at 09:45 Ondansetron HCl (Zofran) 4 mg STK-MED ONCE .ROUTE ; Start 06/13/19 at 09:39; Stop 06/13/19 at 09:40; Status DC Daptomycin 560 mg/ Sodium Chloride 50 ml @ 100 mls/hr Q24H IV Last administered on 06/13/19at 16:04; Start 06/13/19 at 14:00; Stop 06/14/19 at 11:15; Status DC Meropenem 1 gm/ Sodium Chloride 100 ml @ 200 mls/hr Q12HR IV Last administered on 06/15/19at 07:36; Start 06/13/19 at 15:00; Stop 06/15/19 at 07:39; Status DC Pantoprazole Sodium (PROTONIX VIAL for IV PUSH) 40 mg DAILYAC IVP Last administered on 06/18/19at 08:29; Start 06/14/19 at 07:30 Lidocaine/Sodium Bicarbonate (Buffered Lidocaine 1%) 3 ml STK-MED ONCE .ROUTE ; Start 06/13/19 at 13:59; Stop 06/13/19 at 14:00; Status DC Lidocaine/Sodium Bicarbonate (Buffered Lidocaine 1%) 3 ml 1X ONCE [place] Last administered on 06/13/19at 14:39; Start 06/13/19 at 14:30; Stop 06/13/19 at 14:32; Status DC Amino Acids/ Electrolytes/ Dextrose 1,000 ml @ 80 mls/hr [id number] IV Last administered on 06/15/19at 16:23; Start 06/14/19 at 10:30; Stop 06/15/19 at 21:59; Status DC Daptomycin 560 mg/ Sodium Chloride 50 ml @ 100 mls/hr Q48H IV Last administered on 06/17/19at 14:29; Start 06/15/19 at 14:00; Stop 06/18/19 at 07:56; Status DC Sodium Chloride 500 ml @ 500 mls/hr 1X ONCE IV Last administered on 06/14/19at 11:54; Start 06/14/19 at 11:45; Stop 06/14/19 at 12:44; Status DC Sodium Chloride 500 ml @ 500 mls/hr 1X ONCE IV Last administered on 06/14/19at 12:25; Start 06/14/19 at 11:45; Stop 06/14/19 at 12:44; Status DC Methylnaltrexone [place] (Relistor) 6 mg 1X ONCE SQ Last administered on 06/14/19at 14:15; Start 06/14/19 at 14:00; Stop 06/14/19 at 14:01; Status DC Norepinephrine Bitartrate 250 ml @ 17.398 mls/ hr CONT PRN IV SEE I/O RECORD Last administered on 06/18/19at 01:05; Start 06/14/19 at 14:30 Propofol 20 ml @ As Directed STK-MED ONCE IV ; Start 06/14/19 at 16:17; Stop 06/14/19 at 16:17; Status DC Dexamethasone Sodium Phosphate (Decadron) 4 mg STK-MED ONCE .ROUTE ; Start 06/14/19 at 16:17; Stop 06/14/19 at 16:17; Status DC Famotidine (Pepcid Vial) 20 mg STK-MED ONCE .ROUTE ; Start 06/14/19 at 16:17; Stop 06/14/19 at 16:17; Status DC Lidocaine HCl (Lidocaine Pf 2% Vial) 5 ml STK-MED ONCE .ROUTE ; Start 06/14/19 at 16:17; Stop 06/14/19 at 16:17; Status DC Ondansetron HCl (Zofran) 4 mg STK-MED ONCE .ROUTE ; Start 06/14/19 at 16:17; Stop 06/14/19 at 16:17; Status DC Succinylcholine Chloride (Anectine) 200 mg STK-MED ONCE .ROUTE ; Start 06/14/19 at 16:17; Stop 06/14/19 at 16:17; Status DC Fentanyl Citrate (Fentanyl 2ml Vial) 100 mcg STK-MED ONCE .ROUTE ; Start 9 at 16:17; Stop 06/14/19 at 16:17; Status DC Rocuronium [place] (Zemuron) 50 mg STK-MED ONCE .ROUTE ; Start 06/14/19 at 16:32; Stop 06/14/19 at 16:32; Status DC Ketamine HCl (Ketamine) 50 mg STK-MED ONCE .ROUTE ; Start 06/14/19 at 17:03; Stop 06/14/19 at 17:03; Status DC Phenylephrine HCl (PHENYLEPHRINE in 0.9% NACL PF) 1 mg STK-MED ONCE IV ; Start 06/14/19 at 17:03; Stop 06/14/19 at 17:04; Status DC Bupivacaine HCl/ Epinephrine Bitart (Sensorcaine-Epi 0.25%-1:[id number] Mpf) 30 ml 1X ONCE INJ ; Start 06/14/19 at 17:45; Stop 06/14/19 at 17:46; Status Cancel Clindamycin Phosphate 50 ml @ As Directed STK-MED ONCE IV ; Start 06/14/19 at 18:07; Stop 06/14/19 at 18:07; Status DC Albumin Human 500 ml @ As Directed STK-MED ONCE IV ; Start 06/14/19 at 18:10; Stop 06/14/19 at 18:11; Status DC Albumin Human 500 ml @ 125 mls/hr 1X ONCE IV Last administered on 06/14/19at 20:00; Start 06/14/19 at 20:00; Stop 06/14/19 at 23:59; Status DC Fentanyl Citrate 30 ml @ 0 mls/hr CONT PRN IV SEE PROTOCOL Last administered on 06/18/19at 08:29; Start 06/14/19 at 20:00 Propofol 100 ml @ 0 mls/hr CONT PRN IV SEE PROTOCOL Last administered on 06/15/19at 10:33; Start 06/14/19 at 20:00 Ephedrine Sulfate (ePHEDrine PF IN SALINE SYRINGE) 50 mg STK-MED ONCE IV ; Start 06/14/19 at 19:21; Stop 06/14/19 at 19:21; Status DC Sodium Chloride 1,000 ml @ 125 mls/hr Q8H IV Last administered on 06/18/19at 06:05; Start 06/15/19 at 06:00 Sodium Bicarbonate 50 meq/Sodium Chloride 1,050 ml @ 125 mls/hr 1X ONCE IV Last administered on 06/14/19at 22:34; Start 06/14/19 at 23:00; Stop 06/15/19 at 07:23; Status DC Meropenem 1 gm/ Sodium Chloride 100 ml @ 200 mls/hr DAILY IV Last administered on 06/17/19at 08:49; Start 06/15/19 at 09:00 Sodium Chloride 1,000 ml @ 1,000 mls/hr 1X ONCE IV Last administered on 06/15/19at 09:14; Start 06/15/19 at 09:00; Stop 06/15/19 at 09:59; Status DC Sodium Bicarbonate 50 meq/Sodium Chloride 1,050 ml @ 125 mls/hr Q8H24M IV Last administered on 06/16/19at 09:26; Start 06/15/19 at 10:15; Stop 06/16/19 at 18:21; Status DC Heparin Sodium (Porcine) (Heparin Sodium) 10,000 unit STK-MED ONCE .ROUTE ; Start 06/15/19 at 10:18; Stop 06/15/19 at 10:19; Status DC Lidocaine/Sodium Bicarbonate (Buffered Lidocaine 1%) 3 ml STK-MED ONCE .ROUTE ; Start 06/15/19 at 10:19; Stop 06/15/19 at 10:19; Status DC Lidocaine/Sodium Bicarbonate (Buffered Lidocaine 1%) 3 ml 1X ONCE INJ ; Start 06/15/19 at 11:00; Stop 06/15/19 at 11:01; Status DC Heparin Sodium (Porcine) (Heparin Sodium) 2,600 unit 1X ONCE INT CAT ; Start 06/15/19 at 11:00; Stop 06/15/19 at 11:01; Status DC Info (Tpn Per Pharmacy) 1 each PRN DAILY PRN MC SEE COMMENTS Last administered on 06/17/19at 12:24; Start 06/15/19 at 11:30 Sodium Chloride 90 meq/Potassium Chloride 50 meq/ Magnesium Sulfate 10 meq/Calcium Gluconate 10 meq/ Multivitamins 10 ml/Chromium/ Copper/Manganese/ Seleni/Zn 1 ml/ Total Parenteral Nutrition/Amino Acids/Dextrose 1,512 ml @ 63 mls/hr TPN CONT IV Last administered on 06/16/19at 00:19; Start 06/15/19 at 22:00; Stop 06/16/19 at 21:59; Status DC Midazolam HCl 100 ml @ 0 mls/hr CONT PRN IV SEE PROTOCOL Last administered on 06/18/19at 01:05; Start 06/15/19 at 13:00 Sodium Chloride 1,000 ml @ 1,000 mls/hr Q1H PRN IV hypotension; Start 06/15/19 at 13:49; Stop 06/15/19 at 19:48; Status DC Albumin Human 200 ml @ 200 mls/hr 1X PRN PRN IV Hypotension; Start 06/15/19 at 14:00; Stop 06/15/19 at 19:59; Status DC Sodium Chloride 1,000 ml @ 400 mls/hr Q2H30M PRN IV PATENCY; Start 06/15/19 at 13:49; Stop 06/16/19 at 01:48; Status DC Info (PHARMACY MONITORING -- do not chart) 1 each PRN DAILY PRN MC SEE COMMENTS; Start 06/15/19 at 14:00; Stop 06/15/19 at 13:55; Status DC Info (PHARMACY MONITORING -- do not chart) 1 each PRN DAILY PRN MC SEE COMMENTS; Start 06/15/19 at 14:00 Vasopressin 40 unit/Dextrose 102 ml @ 6 mls/hr CONT PRN IV SEE I/O RECORD Last administered on 06/18/19at 01:05; Start 06/15/19 at 14:30 Metronidazole 100 ml @ 100 mls/hr Q8HRS IV Last administered on 06/18/19at 06:05; Start 06/15/19 at 17:30 Vancomycin HCl (Vancomycin Oral Solution) 125 mg [id number] PO Last administered on 06/17/19at 21:58; Start 06/16/19 at 09:00 Magnesium Sulfate 50 ml @ 25 mls/hr 1X ONCE IV Last administered on 06/16/19at 08:27; Start 06/16/19 at 08:30; Stop 06/16/19 at 10:29; Status DC Info (PHARMACY MONITORING -- do not chart) 1 each PRN DAILY PRN MC SEE COMMENTS; Start 06/16/19 at 09:15; Status UNV Info (PHARMACY MONITORING -- do not chart) 1 each PRN DAILY PRN MC SEE COMMENTS; Start 06/16/19 at 09:15; Status UNV Insulin Human Lispro (HumaLOG) 0-9 UNITS Q6HRS SQ Last administered on 06/18/19at 07:07; Start 06/16/19 at 12:00 Sodium Chloride 90 meq/Potassium Chloride 50 meq/ Magnesium Sulfate 10 meq/ Calcium Gluconate 10 meq/ Multivitamins 10 ml/Chromium/ Copper/Manganese/ Seleni/Zn 1 ml/ Total Parenteral Nutrition/Amino Acids/Dextrose/ Fat Emulsion Intravenous 1,512 ml @ 63 mls/hr TPN CONT IV Last administered on 06/16/19at 22:43; Start 06/16/19 at 22:00; Stop 06/17/19 at 21:59; Status DC Sodium Chloride 90 meq/Potassium Chloride 50 meq/ Potassium Phosphate 13.6 mmol/Magnesium Sulfate 10 meq/ Calcium Gluconate 10 meq/ Multivitamins 10 ml/Chromium/ Copper/Manganese/ Seleni/Zn 1 ml/ Total Parenteral Nutrition/Amino Acids/Dextrose/ Fat Emulsion Intravenous 1,512 ml @ 63 mls/hr TPN CONT IV Last administered on 06/17/19at 21:48; Start 06/17/19 at 22:00; Stop 06/18/19 at 21:59 Active Scripts Active Reported Foltx Tablet (B12/Levomefolate Calcium/B-6) 1 Each Tablet 1 Each PO AFTRNOON Testosterone Cypionate 200 Mg/1 Ml Vial 1 Ml IM Q2WKS Novolog Mix 70-30 Flexpen Syrn (Insuln Asp Prt/Insulin Aspart) 100 Unit/1 Ml Insuln.pen 1 Unit SQ BIDACBL Lantus Solostar (Insulin Glargine,Hum.rec.anlog) 100 Unit/1 Ml Insuln.pen 30 Unit SQ QHS Nifedipine Er (Nifedipine) 60 Mg Tab.er.24 1 Tab PO DAILY Morphine Sulfate Er (Morphine Sulfate) 60 Mg Tablet.er 1 Tab PO BID Furosemide 40 Mg Tablet 40 Mg PO DAILY Finasteride 5 Mg Tablet 1 Tab PO DAILY Simvastatin 40 Mg Tablet 1 Tab PO QHS Metoprolol Succinate ( Xl ) (Metoprolol Succinate) 200 Mg Tab.er.24h 1 Tab PO DAILY Levothyroxine Sodium 175 Mcg Tablet 1 Tab PO DAILY Losartan-Hctz 100-12.5 Mg Tab (Losartan/Hydrochlorothiazide) 1 Each Tablet 1 Tab PO DAILY Vitals/I & O Vital Sign - Last 24 Hours 06/17/19 06/17/19 06/17/19 06/17/19 10:00 10:00 11:00 11:36 Pulse 88 86 Resp 19 20 B/P (MAP) 99/57 (71) 100/60 (73) Pulse Ox 98 99 99 O2 Delivery Ventilator Ventilator Ventilator Ventilator 06/17/19 06/17/19 06/17/19 06/17/19 12:00 12:00 12:59 13:00 Temp 99.4 99.4 Pulse 89 87 Resp 21 21 B/P (MAP) 105/60 (75) 106/62 (77) Pulse Ox 99 99 98 O2 Delivery Mechanical Ventilator Ventilator Ventilator Ventilator 06/17/19 06/17/19 06/17/19 06/17/19 14:00 15:00 15:28 15:33 Pulse 86 88 Resp 23 20 B/P (MAP) 111/61 (78) 116/66 (83) Pulse Ox 98 99 99 O2 Delivery Ventilator Ventilator Ventilator Ventilator 06/17/19 06/17/19 06/17/19 06/17/19 16:00 16:00 16:13 17:00 Temp 98.8 98.8 Pulse 88 86 Resp 22 20 B/P (MAP) 118/66 (83) 104/61 (75) Pulse Ox 98 98 O2 Delivery Ventilator Mechanical Ventilator Ventilator Ventilator 06/17/19 06/17/19 06/17/19 06/17/19 17:38 18:00 19:00 20:00 Pulse 81 86 Resp 19 B/P (MAP) 127/68 (87) 106/55 (72) Pulse Ox 100 99 99 O2 Delivery Ventilator Ventilator Ventilator Mechanical Ventilator 06/17/19 06/17/19 06/17/19 06/17/19 20:00 20:11 21:00 21:48 Temp 98.0 98.0 Pulse 86 88 Resp 22 21 B/P (MAP) 124/49 (74) 105/59 (74) Pulse Ox 98 97 99 99 O2 Delivery Ventilator Ventilator Ventilator O2 Flow Rate 2.0 06/17/19 06/17/19 06/17/19 06/17/19 22:00 23:00 23:40 23:56 Pulse 88 89 Resp B/P (MAP) 115/60 (78) 104/73 (83) Pulse Ox 99 99 99 100 O2 Delivery Ventilator Ventilator Ventilator O2 Flow Rate 2.0 06/18/19 06/18/19 06/18/19 06/18/19 00:00 00:00 01:00 02:00 Temp 98.2 98.2 Pulse 86 82 86 Resp B/P (MAP) 119/58 (78) 98/55 (69) Pulse Ox 98 100 99 O2 Delivery Ventilator Mechanical Ventilator Ventilator Ventilator 06/18/19 06/18/19 06/18/19 06/18/19 02:26 02:58 03:00 04:00 Temp 98.0 98.0 Pulse 82 80 Resp B/P (MAP) 106/59 (75) 109/62 (78) Pulse Ox 100 100 100 100 O2 Delivery Ventilator Ventilator Ventilator O2 Flow Rate 2.0 06/18/19 06/18/19 06/18/19 06/18/19 04:00 04:27 05:00 05:50 Pulse 82 Resp 22 B/P (MAP) 111/61 (78) Pulse Ox 100 100 100 O2 Delivery Mechanical Ventilator Ventilator Ventilator Ventilator 06/18/19 06/18/19 06/18/19 06/18/19 06:00 06:57 07:00 07:55 Pulse 82 80 Resp B/P (MAP) 96/54 (68) 117/60 (79) Pulse Ox 100 100 100 100 O2 Delivery Ventilator Ventilator Ventilator O2 Flow Rate 2.0 06/18/19 06/18/19 06/18/19 06/18/19 08:00 08:00 08:29 09:00 Temp 97.2 97.2 Pulse 78 81 Resp B/P (MAP) 123/63 (83) 112/62 (79) Pulse Ox 100 100 100 O2 Delivery Ventilator Mechanical Ventilator Ventilator Ventilator 06/18/19 06/18/19 09:08 09:10 Pulse Ox 100 100 O2 Delivery Ventilator Ventilator Intake and Output 06/17/19 06/17/19 06/18/19 14:59 22:59 06:59 Intake Total 200 ml 3378.69 ml 3096 ml Output Total 537 ml 462 ml 175 ml Balance -337 ml 2916.69 ml 2921 ml Problem List Ileus- secondary to sepsis/C diff colitis, on oral vanco, prognosis guarded with MOF. CPM LOW ALLEN MD Jun 18, 2019 09:39
--- NOTE | 2019-06-18 09:55 | PDOC ---
PULMONARY PROGRESS NOTES Subjective SEDATED PT ON AC MODE FIO2 DOWN TO 50 % FROM 70 ABLE TO GO DOWN ON PRESSORS A BIT Vitals Vital Signs Date Time Temp Pulse Resp B/P (MAP) Pulse Ox O2 Delivery O2 Flow Rate FiO2 06/18/19 09:10 100 Ventilator 06/18/19 09:00 81 17 112/62 (79) 06/18/19 08:00 97.2 97.2 06/18/19 06:57 2.0 HEENT: Other (UNABLE TO ASSESS JVD SEC TO BODY HABITS) Lungs: Crackles Cardiovascular: S1, S2 Abdomen: Other (TENDER) Extremities: Other (EDEMA) Skin: Warm Labs Laboratory Tests Test 06/16/19 13:36 06/16/19 17:59 06/16/19 22:37 06/17/19 02:07 Glucose (Fingerstick) 199 mg/dL (70-99) 201 mg/dL (70-99) 235 mg/dL (70-99) 258 mg/dL (70-99) Test 06/17/19 06:17 06/17/19 06:30 06/17/19 08:00 06/17/19 12:48 Glucose (Fingerstick) 251 mg/dL (70-99) 106 mg/dL (70-99) White Blood Count 13.9 x10^3/uL (4.0-11.0) Red Blood Count 3.37 x10^6/uL (4.30-5.70) Hemoglobin 10.6 g/dL (13.0-17.5) Hematocrit 31.9 % (39.0-53.0) Mean Corpuscular Volume 95 fL (79-100) Mean Corpuscular Hemoglobin 32 pg (25-35) Mean Corpuscular Hemoglobin Concent 33 g/dL (31-37) Red Cell Distribution Width 14.8 % (11.5-14.5) Platelet Count 166 x10^3/uL (140-400) Neutrophils (%) (Auto) 80 % (31-73) Lymphocytes (%) (Auto) 8 % (24-48) Monocytes (%) (Auto) 11 % (0-9) Eosinophils (%) (Auto) 1 % (0-3) Basophils (%) (Auto) 0 % (0-3) Neutrophils # (Auto) 11.0 x10^3/uL (1.8-7.7) Lymphocytes # (Auto) 1.1 x10^3/uL (1.0-4.8) Monocytes # (Auto) 1.6 x10^3/uL (0.0-1.1) Eosinophils # (Auto) 0.2 x10^3/uL (0.0-0.7) Basophils # (Auto) 0.0 x10^3/uL (0.0-0.2) Sodium Level 136 mmol/L (136-145) Potassium Level 3.5 mmol/L (3.5-5.1) Chloride Level 103 mmol/L (98-107) Carbon Dioxide Level 23 mmol/L (21-32) Anion Gap 10 (6-14) Blood Urea Nitrogen 66 mg/dL (8-26) Creatinine 2.9 mg/dL (0.7-1.3) Estimated GFR (Cockcroft-Gault) 21.2 BUN/Creatinine Ratio 23 (6-20) Glucose Level 283 mg/dL (70-99) Calcium Level 6.7 mg/dL (8.5-10.1) Phosphorus Level 3.7 mg/dL (2.6-4.7) Magnesium Level 2.3 mg/dL (1.8-2.4) Total Bilirubin 0.3 mg/dL (0.2-1.0) Aspartate Amino Transf (AST/SGOT) 33 U/L (15-37) Alanine Aminotransferase (ALT/SGPT) 12 U/L (16-63) Alkaline Phosphatase 129 U/L (46-116) Total Protein 3.6 g/dL (6.4-8.2) Albumin 1.0 g/dL (3.4-5.0) Albumin/Globulin Ratio 0.4 (1.0-1.7) O2 Saturation 93 % (92-99) Arterial Blood pH 7.40 (7.35-7.45) Arterial Blood pCO2 at Patient Temp 36 mmHg (35-46) Arterial Blood pO2 at Patient Temp 70 mmHg (65-108) Arterial Blood HCO3 22 mmol/L (21-28) Arterial Blood Base Excess -3 mmol/L (-3-3) FiO2 60 Test 06/17/19 18:16 06/17/19 21:45 06/18/19 01:01 06/18/19 06:08 Glucose (Fingerstick) 218 mg/dL (70-99) 336 mg/dL (70-99) 314 mg/dL (70-99) White Blood Count 14.8 x10^3/uL (4.0-11.0) Red Blood Count 3.29 x10^6/uL (4.30-5.70) Hemoglobin 10.4 g/dL (13.0-17.5) Hematocrit 31.0 % (39.0-53.0) Mean Corpuscular Volume 94 fL (79-100) Mean Corpuscular Hemoglobin 32 pg (25-35) Mean Corpuscular Hemoglobin Concent 34 g/dL (31-37) Red Cell Distribution Width 14.5 % (11.5-14.5) Platelet Count 155 x10^3/uL (140-400) Neutrophils (%) (Auto) 82 % (31-73) Lymphocytes (%) (Auto) 8 % (24-48) Monocytes (%) (Auto) 9 % (0-9) Eosinophils (%) (Auto) 1 % (0-3) Basophils (%) (Auto) 0 % (0-3) Neutrophils # (Auto) 12.2 x10^3/uL (1.8-7.7) Lymphocytes # (Auto) 1.1 x10^3/uL (1.0-4.8) Monocytes # (Auto) 1.3 x10^3/uL (0.0-1.1) Eosinophils # (Auto) 0.2 x10^3/uL (0.0-0.7) Basophils # (Auto) 0.0 x10^3/uL (0.0-0.2) Sodium Level 135 mmol/L (136-145) Potassium Level 3.4 mmol/L (3.5-5.1) Chloride Level 103 mmol/L (98-107) Carbon Dioxide Level 22 mmol/L (21-32) Anion Gap 10 (6-14) Blood Urea Nitrogen 79 mg/dL (8-26) Creatinine 3.5 mg/dL (0.7-1.3) Estimated GFR (Cockcroft-Gault) 17.1 BUN/Creatinine Ratio 23 (6-20) Glucose Level 348 mg/dL (70-99) Calcium Level 7.0 mg/dL (8.5-10.1) Phosphorus Level 3.9 mg/dL (2.6-4.7) Magnesium Level 2.0 mg/dL (1.8-2.4) Total Bilirubin 0.4 mg/dL (0.2-1.0) Aspartate Amino Transf (AST/SGOT) 24 U/L (15-37) Alanine Aminotransferase (ALT/SGPT) 8 U/L (16-63) Alkaline Phosphatase 104 U/L (46-116) Total Protein 4.0 g/dL (6.4-8.2) Albumin 0.9 g/dL (3.4-5.0) Albumin/Globulin Ratio 0.3 (1.0-1.7) Test 06/18/19 09:15 O2 Saturation 98 % (92-99) Arterial Blood pH 7.35 (7.35-7.45) Arterial Blood pCO2 at Patient Temp 36 mmHg (35-46) Arterial Blood pO2 at Patient Temp 137 mmHg (65-108) Arterial Blood HCO3 20 mmol/L (21-28) Arterial Blood Base Excess -6 mmol/L (-3-3) FiO2 60 Laboratory Tests Test 06/17/19 12:48 06/17/19 18:16 06/17/19 21:45 06/18/19 01:01 Glucose (Fingerstick) 106 mg/dL (70-99) 218 mg/dL (70-99) 336 mg/dL (70-99) 314 mg/dL (70-99) Test 06/18/19 06:08 06/18/19 09:15 White Blood Count 14.8 x10^3/uL (4.0-11.0) Red Blood Count 3.29 x10^6/uL (4.30-5.70) Hemoglobin 10.4 g/dL (13.0-17.5) Hematocrit 31.0 % (39.0-53.0) Mean Corpuscular Volume 94 fL (79-100) Mean Corpuscular Hemoglobin 32 pg (25-35) Mean Corpuscular Hemoglobin Concent 34 g/dL (31-37) Red Cell Distribution Width 14.5 % (11.5-14.5) Platelet Count 155 x10^3/uL (140-400) Neutrophils (%) (Auto) 82 % (31-73) Lymphocytes (%) (Auto) 8 % (24-48) Monocytes (%) (Auto) 9 % (0-9) Eosinophils (%) (Auto) 1 % (0-3) Basophils (%) (Auto) 0 % (0-3) Neutrophils # (Auto) 12.2 x10^3/uL (1.8-7.7) Lymphocytes # (Auto) 1.1 x10^3/uL (1.0-4.8) Monocytes # (Auto) 1.3 x10^3/uL (0.0-1.1) Eosinophils # (Auto) 0.2 x10^3/uL (0.0-0.7) Basophils # (Auto) 0.0 x10^3/uL (0.0-0.2) Sodium Level 135 mmol/L (136-145) Potassium Level 3.4 mmol/L (3.5-5.1) Chloride Level 103 mmol/L (98-107) Carbon Dioxide Level 22 mmol/L (21-32) Anion Gap 10 (6-14) Blood Urea Nitrogen 79 mg/dL (8-26) Creatinine 3.5 mg/dL (0.7-1.3) Estimated GFR (Cockcroft-Gault) 17.1 BUN/Creatinine Ratio 23 (6-20) Glucose Level 348 mg/dL (70-99) Calcium Level 7.0 mg/dL (8.5-10.1) Phosphorus Level 3.9 mg/dL (2.6-4.7) Magnesium Level 2.0 mg/dL (1.8-2.4) Total Bilirubin 0.4 mg/dL (0.2-1.0) Aspartate Amino Transf (AST/SGOT) 24 U/L (15-37) Alanine Aminotransferase (ALT/SGPT) 8 U/L (16-63) Alkaline Phosphatase 104 U/L (46-116) Total Protein 4.0 g/dL (6.4-8.2) Albumin 0.9 g/dL (3.4-5.0) Albumin/Globulin Ratio 0.3 (1.0-1.7) O2 Saturation 98 % (92-99) Arterial Blood pH 7.35 (7.35-7.45) Arterial Blood pCO2 at Patient Temp 36 mmHg (35-46) Arterial Blood pO2 at Patient Temp 137 mmHg (65-108) Arterial Blood HCO3 20 mmol/L (21-28) Arterial Blood Base Excess -6 mmol/L (-3-3) FiO2 60 Medications Active Scripts Medications Dose Route/Sig Max Daily Dose Days Date Category Foltx Tablet (B12/Levomefolate Calcium/B-6) 1 Each Tablet 1 Each PO AFTRNOON 06/07/19 Reported Testosterone Cypionate 200 Mg/1 Ml Vial 1 Ml IM Q2WKS 06/07/19 Reported Novolog Mix 70-30 Flexpen Syrn (Insuln Asp Prt/Insulin Aspart) 100 Unit/1 Ml Insuln.pen 1 Unit SQ BIDACBL 06/07/19 Reported Lantus Solostar (Insulin Glargine,Hum.rec.anlog) 100 Unit/1 Ml Insuln.pen 30 Unit SQ QHS 06/07/19 Reported Nifedipine Er (Nifedipine) 60 Mg Tab.er.24 1 Tab PO DAILY 06/07/19 Reported Morphine Sulfate Er (Morphine Sulfate) 60 Mg Tablet.er 1 Tab PO BID 06/07/19 Reported Furosemide 40 Mg Tablet 40 Mg PO DAILY 06/07/19 Reported Finasteride 5 Mg Tablet 1 Tab PO DAILY 06/07/19 Reported Simvastatin 40 Mg Tablet 1 Tab PO QHS 06/07/19 Reported Metoprolol Succinate ( Xl ) (Metoprolol Succinate) 200 Mg Tab.er.24h 1 Tab PO DAILY 06/07/19 Reported Levothyroxine Sodium 175 Mcg Tablet 1 Tab PO DAILY 06/07/19 Reported Losartan-Hctz 100-12.5 Mg Tab (Losartan/Hydrochlorothiazide) 1 Each Tablet 1 Tab PO DAILY 06/07/19 Reported Impression . 1. Abnormal x-ray secondary to atelectasis/CHF 2. Respiratory FAILURE MULTIFACTORIAL NOW S/P OR FOR ID OF SHOULDER 3. Erosive gastritis. 4. Diarrhea. 5. Coronary artery disease, status post coronary artery bypass grafting. 6, COLONIC ILEUS 7. SEPSIS WITH HYPOTENSION 8. SHOULDER ABSCESS 9. RENATA ID NOTE LUE abscess s/p 10 ml removal 06/13. group B strep -S/p Left shoulder open incision and drainage with arthrotomy, debridement of bone and bone cement, and joint irrigation 06/14 G B strep C. diff positive, 06/14 Plan . REPEAT CXR NOT READY FOR TRIAL WILL CONTINUE SUPPORT WEAN PRESSORS TOLERATED HD PER NEPHRO ABG NOTED COMPENSATED IV FLUIDS PER NEPHRO OVERALL PROGNOSIS IS GUARDED ANTI BX PER ID CCT 30 MIN FORMULATING A PLAN, REVIEWING DATA, LABS, CXR EDMAR GARG MD Jun 18, 2019 09:55
[2019-06-18] MEDS: MEROPENEM 1 GM in IV NORMAL SALINE 100ML 100 ML IV SCH (10:54)
[2019-06-18] MEDS: VANCOMYCIN 125 MG/2.5 ML ORAL SOLUTION. PO SCH ×4 (10:55→20:18)
[2019-06-18] MEDS: TPN PER PHARMACY MC PRN (11:14)
--- NOTE | 2019-06-18 11:19 | NUR ---
Pharmacy TPN Dosing Note S: ROSLYN MOORE is a 78 year old M Currently receiving Central Continuous TPN started 06/15/19 B:Pertinent PMH: Duodenal ulcer, Ileus Height: 6 feet, 0 inches Weight: 92.8 kg Current diet: NPO LABS: Sodium: 135 Potassium: 3.4 Chloride: 103 Calcium: 7.0 Corrected Calcium: 9.48 Magnesium: 2 CO2: 22 SCr: 3.5 Glucose: 106-348 Albumin: 0.9 AST: 24 ALT: 8 TPN FORMULA: TPN TYPE: Central Continuous AMINO ACIDS: 110 gm DEXTROSE: 195 gm LIPIDS: 20 gm SODIUM CHLORIDE: 90 mEq POTASSIUM CHLORIDE: 70 mEq POTASSIUM PHOSPHATE: 13.6 mmol MAGNESIUM: 10 mEq CALCIUM: 10 mEq MULTIPLE VITAMIN: 10 ml TRACE ELEMENTS: 1 ml TPN PLAN: Potassium chloride increased to 70 mEq in tonight's bag based on trend. R: Change TPN per plan and ordered formula. Will monitor electrolytes, glucose, and tolerance to TPN. Kellee Alicia Gladys, 06/18/19 0055
--- NOTE | 2019-06-18 13:08 | PDOC ---
PROGRESS NOTES Subjective Subjective He is still critically ill, intubated, sedated, on pressors, and in the ICU. He is showing daily signs of improvement, with decreasing Levophed down to 14 mcg/min, and decreased FIO2 down from 60% to 50%. BP looks better today, 110 systolic, had been in the 80s last 2 days. Objective Vital Signs Vital Signs Date Time Temp Pulse Resp B/P (MAP) Pulse Ox O2 Delivery O2 Flow Rate FiO2 06/18/19 11:23 100 Ventilator 06/18/19 11:00 79 20 110/57 (74) 06/18/19 08:00 97.2 97.2 06/18/19 06:57 2.0 Physical Exam Shoulder dressing is dry, and no apparent recurrent effusion. Arm is swollen but he is diffusely edematous Labs Laboratory Tests Test 06/16/19 13:36 06/16/19 17:59 06/16/19 22:37 06/17/19 02:07 Glucose (Fingerstick) 199 mg/dL (70-99) 201 mg/dL (70-99) 235 mg/dL (70-99) 258 mg/dL (70-99) Test 06/17/19 06:17 06/17/19 06:30 06/17/19 08:00 06/17/19 12:48 Glucose (Fingerstick) 251 mg/dL (70-99) 106 mg/dL (70-99) White Blood Count 13.9 x10^3/uL (4.0-11.0) Red Blood Count 3.37 x10^6/uL (4.30-5.70) Hemoglobin 10.6 g/dL (13.0-17.5) Hematocrit 31.9 % (39.0-53.0) Mean Corpuscular Volume 95 fL (79-100) Mean Corpuscular Hemoglobin 32 pg (25-35) Mean Corpuscular Hemoglobin Concent 33 g/dL (31-37) Red Cell Distribution Width 14.8 % (11.5-14.5) Platelet Count 166 x10^3/uL (140-400) Neutrophils (%) (Auto) 80 % (31-73) Lymphocytes (%) (Auto) 8 % (24-48) Monocytes (%) (Auto) 11 % (0-9) Eosinophils (%) (Auto) 1 % (0-3) Basophils (%) (Auto) 0 % (0-3) Neutrophils # (Auto) 11.0 x10^3/uL (1.8-7.7) Lymphocytes # (Auto) 1.1 x10^3/uL (1.0-4.8) Monocytes # (Auto) 1.6 x10^3/uL (0.0-1.1) Eosinophils # (Auto) 0.2 x10^3/uL (0.0-0.7) Basophils # (Auto) 0.0 x10^3/uL (0.0-0.2) Sodium Level 136 mmol/L (136-145) Potassium Level 3.5 mmol/L (3.5-5.1) Chloride Level 103 mmol/L (98-107) Carbon Dioxide Level 23 mmol/L (21-32) Anion Gap 10 (6-14) Blood Urea Nitrogen 66 mg/dL (8-26) Creatinine 2.9 mg/dL (0.7-1.3) Estimated GFR (Cockcroft-Gault) 21.2 BUN/Creatinine Ratio 23 (6-20) Glucose Level 283 mg/dL (70-99) Calcium Level 6.7 mg/dL (8.5-10.1) Phosphorus Level 3.7 mg/dL (2.6-4.7) Magnesium Level 2.3 mg/dL (1.8-2.4) Total Bilirubin 0.3 mg/dL (0.2-1.0) Aspartate Amino Transf (AST/SGOT) 33 U/L (15-37) Alanine Aminotransferase (ALT/SGPT) 12 U/L (16-63) Alkaline Phosphatase 129 U/L (46-116) Total Protein 3.6 g/dL (6.4-8.2) Albumin 1.0 g/dL (3.4-5.0) Albumin/Globulin Ratio 0.4 (1.0-1.7) O2 Saturation 93 % (92-99) Arterial Blood pH 7.40 (7.35-7.45) Arterial Blood pCO2 at Patient Temp 36 mmHg (35-46) Arterial Blood pO2 at Patient Temp 70 mmHg (65-108) Arterial Blood HCO3 22 mmol/L (21-28) Arterial Blood Base Excess -3 mmol/L (-3-3) FiO2 60 Test 9/1/19 18:16 06/17/19 21:45 06/18/19 01:01 06/18/19 06:08 Glucose (Fingerstick) 218 mg/dL (70-99) 336 mg/dL (70-99) 314 mg/dL (70-99) White Blood Count 14.8 x10^3/uL (4.0-11.0) Red Blood Count 3.29 x10^6/uL (4.30-5.70) Hemoglobin 10.4 g/dL (13.0-17.5) Hematocrit 31.0 % (39.0-53.0) Mean Corpuscular Volume 94 fL (79-100) Mean Corpuscular Hemoglobin 32 pg (25-35) Mean Corpuscular Hemoglobin Concent 34 g/dL (31-37) Red Cell Distribution Width 14.5 % (11.5-14.5) Platelet Count 155 x10^3/uL (140-400) Neutrophils (%) (Auto) 82 % (31-73) Lymphocytes (%) (Auto) 8 % (24-48) Monocytes (%) (Auto) 9 % (0-9) Eosinophils (%) (Auto) 1 % (0-3) Basophils (%) (Auto) 0 % (0-3) Neutrophils # (Auto) 12.2 x10^3/uL (1.8-7.7) Lymphocytes # (Auto) 1.1 x10^3/uL (1.0-4.8) Monocytes # (Auto) 1.3 x10^3/uL (0.0-1.1) Eosinophils # (Auto) 0.2 x10^3/uL (0.0-0.7) Basophils # (Auto) 0.0 x10^3/uL (0.0-0.2) Sodium Level 135 mmol/L (136-145) Potassium Level 3.4 mmol/L (3.5-5.1) Chloride Level 103 mmol/L (98-107) Carbon Dioxide Level 22 mmol/L (21-32) Anion Gap 10 (6-14) Blood Urea Nitrogen 79 mg/dL (8-26) Creatinine 3.5 mg/dL (0.7-1.3) Estimated GFR (Cockcroft-Gault) 17.1 BUN/Creatinine Ratio 23 (6-20) Glucose Level 348 mg/dL (70-99) Calcium Level 7.0 mg/dL (8.5-10.1) Phosphorus Level 3.9 mg/dL (2.6-4.7) Magnesium Level 2.0 mg/dL (1.8-2.4) Total Bilirubin 0.4 mg/dL (0.2-1.0) Aspartate Amino Transf (AST/SGOT) 24 U/L (15-37) Alanine Aminotransferase (ALT/SGPT) 8 U/L (16-63) Alkaline Phosphatase 104 U/L (46-116) Total Protein 4.0 g/dL (6.4-8.2) Albumin 0.9 g/dL (3.4-5.0) Albumin/Globulin Ratio 0.3 (1.0-1.7) Test 06/18/19 09:15 O2 Saturation 98 % (92-99) Arterial Blood pH 7.35 (7.35-7.45) Arterial Blood pCO2 at Patient Temp 36 mmHg (35-46) Arterial Blood pO2 at Patient Temp 137 mmHg (65-108) Arterial Blood HCO3 20 mmol/L (21-28) Arterial Blood Base Excess -6 mmol/L (-3-3) FiO2 60 Laboratory Tests Test 06/17/19 18:16 06/17/19 21:45 06/18/19 01:01 06/18/19 06:08 Glucose (Fingerstick) 218 mg/dL (70-99) 336 mg/dL (70-99) 314 mg/dL (70-99) White Blood Count 14.8 x10^3/uL (4.0-11.0) Red Blood Count 3.29 x10^6/uL (4.30-5.70) Hemoglobin 10.4 g/dL (13.0-17.5) Hematocrit 31.0 % (39.0-53.0) Mean Corpuscular Volume 94 fL (79-100) Mean Corpuscular Hemoglobin 32 pg (25-35) Mean Corpuscular Hemoglobin Concent 34 g/dL (31-37) Red Cell Distribution Width 14.5 % (11.5-14.5) Platelet Count 155 x10^3/uL (140-400) Neutrophils (%) (Auto) 82 % (31-73) Lymphocytes (%) (Auto) 8 % (24-48) Monocytes (%) (Auto) 9 % (0-9) Eosinophils (%) (Auto) 1 % (0-3) Basophils (%) (Auto) 0 % (0-3) Neutrophils # (Auto) 12.2 x10^3/uL (1.8-7.7) Lymphocytes # (Auto) 1.1 x10^3/uL (1.0-4.8) Monocytes # (Auto) 1.3 x10^3/uL (0.0-1.1) Eosinophils # (Auto) 0.2 x10^3/uL (0.0-0.7) Basophils # (Auto) 0.0 x10^3/uL (0.0-0.2) Sodium Level 135 mmol/L (136-145) Potassium Level 3.4 mmol/L (3.5-5.1) Chloride Level 103 mmol/L (98-107) Carbon Dioxide Level 22 mmol/L (21-32) Anion Gap 10 (6-14) Blood Urea Nitrogen 79 mg/dL (8-26) Creatinine 3.5 mg/dL (0.7-1.3) Estimated GFR (Cockcroft-Gault) 17.1 BUN/Creatinine Ratio 23 (6-20) Glucose Level 348 mg/dL (70-99) Calcium Level 7.0 mg/dL (8.5-10.1) Phosphorus Level 3.9 mg/dL (2.6-4.7) Magnesium Level 2.0 mg/dL (1.8-2.4) Total Bilirubin 0.4 mg/dL (0.2-1.0) Aspartate Amino Transf (AST/SGOT) 24 U/L (15-37) Alanine Aminotransferase (ALT/SGPT) 8 U/L (16-63) Alkaline Phosphatase 104 U/L (46-116) Total Protein 4.0 g/dL (6.4-8.2) Albumin 0.9 g/dL (3.4-5.0) Albumin/Globulin Ratio 0.3 (1.0-1.7) Test 06/18/19 09:15 O2 Saturation 98 % (92-99) Arterial Blood pH 7.35 (7.35-7.45) Arterial Blood pCO2 at Patient Temp 36 mmHg (35-46) Arterial Blood pO2 at Patient Temp 137 mmHg (65-108) Arterial Blood HCO3 20 mmol/L (21-28) Arterial Blood Base Excess -6 mmol/L (-3-3) FiO2 60 Assessment Assessment infected left shoulder reverse arthroplasty, status post arthrotomy irrigation debridement of the left shoulder joint with retention of the implants on 06/14/19. He is postoperative day 4. He remains critically ill but his sepsis seems to be improving. Plan Plan of Care Continue IV antibiotics, and supportive care. I'm optimistic since he is showing signs of improvement. No immediate shoulder surgery planned. He may need a later procedure such as shoulder hardware removal in the future. BRITT TANG MD Jun 18, 2019 13:08
--- NOTE | 2019-06-18 13:44 | PDOC ---
SUBJECTIVE ROS stable OBJECTIVE Vital Signs Vital Signs Date Time Temp Pulse Resp B/P (MAP) Pulse Ox O2 Delivery O2 Flow Rate FiO2 06/18/19 13:00 68 24 100/91 (94) 100 Ventilator 06/18/19 12:00 97.9 97.9 06/18/19 06:57 2.0 I & 0 Intake and Output 06/18/19 07:00 Intake Total 6574.69 ml Output Total 1164 ml Balance 5410.69 ml IV Total 6574.69 ml Output Urine Total 164 ml Stool Total 1000 ml PHYSICAL EXAM Physical Exam GENERAL: Orally intubated and sedated HEENT: NGT, ETT NECK: Supple LUNGS: CTA ant HEART: S1, S2. ABDOMEN: soft + BS, + rectal tube : Bledsoe EXTREMITIES: No clubbing or cyanosis with some trace lower extremity edema. He has a right hand deformity. His left shoulder is dressed. 2 plus edema. Left heel protector. SKIN: No rash. NEUROLOGIC: Sedated Temp HDC (06/15) DIAGNOSIS/ASSESSMENT Assessment & Plan RENATA-ATN Has been requiring HD, last on 06/16 Dialysis today as ordered, Jamie Edgar daily BMP , strict i/o, supportive care, Monitor Metabolic acidosis- resolved Hypokalemia- HD today CKD STAGE 3- Cr Prob 1.5 Hypotension- On Pressors BP meds held Urinary retention- Flomax on Hold due to Low BP LUE abscess s/p Left shoulder open incision and drainage with arthrotomy, debridement of bone and bone cement, and joint irrigation 06/14 group B strep Post op resp failure - intubated - Pulm following C. diff positive, 06/14 Erosive Gastritis s/p EGD 06/08 CAD - Cardiology following COMMENT/RELEVANT DATA Meds Current Medications Medications (Trade) Dose Ordered Sig/Lauren Start Time Stop Time Status Last Admin Dose Admin Albumin Human 200 ml @ 200 mls/hr 1X PRN PRN 06/15/19 14:00 06/15/19 19:59 DC Amino Acids/ Electrolytes/ Dextrose 1,000 ml @ 80 mls/hr [id number] 06/14/19 10:30 06/15/19 21:59 DC 06/15/19 16:23 80 MLS/HR Bisacodyl (Dulcolax Supp) 10 mg 1X ONCE 06/07/19 17:45 06/07/19 17:46 DC 06/07/19 21:40 10 MG Bisacodyl (Dulcolax Tab) 5 mg PRN DAILY PRN 06/11/19 15:45 Bupivacaine HCl/ Epinephrine Bitart (Sensorcaine-Epi 0.25%-1:[id number] Mpf) 30 ml 1X ONCE 06/14/19 17:45 06/14/19 17:46 Cancel Clindamycin Phosphate 50 ml @ As Directed STK-MED ONCE 06/14/19 18:07 06/14/19 18:07 DC Daptomycin 560 mg/ Sodium Chloride 50 ml @ 100 mls/hr Q48H 06/15/19 14:00 06/18/19 07:56 DC 06/17/19 14:29 100 MLS/HR Dexamethasone Sodium Phosphate (Decadron) 4 mg STK-MED ONCE 06/14/19 16:17 06/14/19 16:17 DC Dextrose 250 ml PRN Q15MIN PRN 06/09/19 11:45 06/09/19 15:19 DC Dextrose (Dextrose 50%-Water Syringe) 12.5 gm PRN Q15MIN PRN 06/09/19 11:45 Ephedrine Sulfate (ePHEDrine PF IN SALINE SYRINGE) 50 mg STK-MED ONCE 06/14/19 19:21 06/14/19 19:21 DC Famotidine (Pepcid Vial) 20 mg STK-MED ONCE 06/14/19 16:17 06/14/19 16:17 DC Fentanyl Citrate 30 ml @ 0 mls/hr CONT PRN 06/14/19 20:00 06/18/19 08:29 3.75 MLS/HR Fentanyl Citrate (Fentanyl 2ml Vial) 100 mcg STK-MED ONCE 06/14/19 16:17 06/14/19 16:17 DC Finasteride (Proscar) 5 mg DAILY 06/12/19 12:00 06/13/19 09:39 DC Furosemide (Lasix) 40 mg DAILY 06/08/19 12:00 06/14/19 13:01 DC 06/12/19 08:36 40 MG Heparin Sodium (Porcine) (Heparin Sodium) 2,600 unit 1X ONCE 06/15/19 11:00 06/15/19 11:01 DC Hydromorphone HCl (Dilaudid) 2 mg PRN Q3HRS PRN 06/07/19 22:00 06/14/19 23:55 DC 06/14/19 12:39 2 MG Info (PHARMACY MONITORING -- do not chart) 1 each PRN DAILY PRN 06/16/19 09:15 UNV Info (Tpn Per Pharmacy) 1 each PRN DAILY PRN 06/15/19 11:30 06/18/19 11:19 1 EACH Insulin Glargine (Lantus Syringe) 30 unit QHS 06/08/19 21:00 06/17/19 21:48 30 UNIT Insulin Human Lispro (HumaLOG) 0-9 UNITS Q6HRS 06/16/19 12:00 06/18/19 12:59 5 UNITS Ketamine HCl (Ketamine) 50 mg STK-MED ONCE 06/14/19 17:03 06/14/19 17:03 DC Levothyroxine Sodium (Synthroid) 175 mcg DAILY06 06/08/19 12:00 06/15/19 07:36 175 MCG Lidocaine HCl (Lidocaine Pf 2% Vial) 5 ml STK-MED ONCE 06/14/19 16:17 06/14/19 16:17 DC Lidocaine/Sodium Bicarbonate (Buffered Lidocaine 1%) 3 ml 1X ONCE 06/15/19 11:00 06/15/19 11:01 DC Lorazepam (Ativan) 0.5 mg PRN Q6HRS PRN 06/07/19 18:00 06/07/19 18:14 DC Losartan Potassium (Cozaar) 100 mg DAILY 06/08/19 12:00 06/14/19 13:01 DC 06/12/19 08:36 100 MG Magnesium Sulfate 50 ml @ 25 mls/hr 1X ONCE 06/16/19 08:30 06/16/19 10:29 DC 06/16/19 08:27 25 MLS/HR Meropenem 1 gm/ Sodium Chloride 100 ml @ 200 mls/hr DAILY 06/15/19 09:00 06/18/19 10:55 200 MLS/HR Methylnaltrexone Cornelius (Relistor) 6 mg 1X ONCE 06/14/19 14:00 06/14/19 14:01 DC 06/14/19 14:15 6 MG Metoprolol Succinate (Toprol Xl) 200 mg DAILY 06/08/19 12:00 06/14/19 13:01 DC 06/12/19 08:36 200 MG Metronidazole 100 ml @ 100 mls/hr Q8HRS 06/15/19 17:30 06/18/19 06:05 100 MLS/HR Midazolam HCl 100 ml @ 0 mls/hr CONT PRN 06/15/19 13:00 06/18/19 01:05 7 MLS/HR Morphine Sulfate (Ms Contin) 60 mg BID 06/08/19 12:00 06/15/19 07:36 60 MG Nicotine (Nicoderm Cq 21mg) 1 patch PRN DAILY PRN 06/07/19 18:00 06/07/19 18:14 DC Nifedipine (Procardia Xl) 60 mg DAILY 06/08/19 12:00 06/14/19 13:01 DC 06/12/19 08:36 60 MG Non-Formulary Medication (Insuln Asp Prt/ Insulin Aspart (Novolog Mix 70-30 Flexpen Syrn)) 1 unit BIDACBL 06/08/19 11:30 06/08/19 19:34 DC Norepinephrine Bitartrate 250 ml @ 17.398 mls/ hr CONT PRN 06/14/19 14:30 06/18/19 01:05 31.838 MLS/HR Ondansetron HCl (Zofran) 4 mg STK-MED ONCE 06/14/19 16:17 06/14/19 16:17 DC Pantoprazole Sodium (PROTONIX VIAL for IV PUSH) 40 mg DAILYAC 06/14/19 07:30 06/18/19 08:29 40 MG Pantoprazole Sodium (Protonix) 40 mg DAILYAC 06/12/19 07:30 06/13/19 13:27 DC 06/12/19 08:36 40 MG Phenylephrine HCl (PHENYLEPHRINE in 0.9% NACL PF) 1 mg STK-MED ONCE 06/14/19 17:03 06/14/19 17:04 DC Polyethylene Glycol (miraLAX PACKET) 17 gm PRN DAILY PRN 06/11/19 15:45 Propofol 100 ml @ 0 mls/hr CONT PRN 06/14/19 20:00 06/15/19 10:33 8.351 MLS/HR Ringer's Solution 1,000 ml @ 75 mls/hr [id number] 06/08/19 09:15 06/09/19 08:01 DC 06/08/19 14:01 75 MLS/HR Rocuronium Cornelius (Zemuron) 50 mg STK-MED ONCE 06/14/19 16:32 06/14/19 16:32 DC Simvastatin (Zocor) 40 mg QHS 06/08/19 21:00 06/17/19 21:48 40 MG Sodium Bicarbonate 50 meq/Sodium Chloride 1,050 ml @ 125 mls/hr [id number] 06/15/19 10:15 06/16/19 18:21 DC 06/16/19 09:26 125 MLS/HR Sodium Chloride 90 meq/Potassium Chloride 50 meq/ Magnesium Sulfate 10 meq/Calcium Gluconate 10 meq/ Multivitamins 10 ml/Chromium/ Copper/Manganese/ Seleni/Zn 1 ml/ Total Parenteral Nutrition/Amino Acids/Dextrose 1,512 ml @ 63 mls/hr TPN CONT 06/15/19 22:00 06/16/19 21:59 DC 06/16/19 00:19 63 MLS/HR Sodium Chloride 90 meq/Potassium Chloride 50 meq/ Magnesium Sulfate 10 meq/Calcium Gluconate 10 meq/ Multivitamins 10 ml/Chromium/ Copper/Manganese/ Seleni/Zn 1 ml/ Total Parenteral Nutrition/Amino Acids/Dextrose/ Fat Emulsion Intravenous 1,512 ml @ 63 mls/hr TPN CONT 06/16/19 22:00 06/17/19 21:59 DC 06/16/19 22:43 63 MLS/HR Sodium Chloride 90 meq/Potassium Chloride 50 meq/ Potassium Phosphate 13.6 mmol/Magnesium Sulfate 10 meq/ Calcium Gluconate 10 meq/ Multivitamins 10 ml/Chromium/ Copper/Manganese/ Seleni/Zn 1 ml/ Total Parenteral Nutrition/Amino Acids/Dextrose/ Fat Emulsion Intravenous 1,512 ml @ 63 mls/hr TPN CONT 06/17/19 22:00 06/18/19 21:59 06/17/19 21:48 63 MLS/HR Sodium Chloride 90 meq/Potassium Chloride 70 meq/ Potassium Phosphate 13.6 mmol/Magnesium Sulfate 10 meq/ Calcium Gluconate 10 meq/ Multivitamins 10 ml/Chromium/ Copper/Manganese/ Seleni/Zn 1 ml/ Total Parenteral Nutrition/Amino Acids/Dextrose/ Fat Emulsion Intravenous 1,512 ml @ 63 mls/hr TPN CONT 06/18/19 22:00 06/19/19 21:59 Succinylcholine Chloride (Anectine) 200 mg STK-MED ONCE 06/14/19 16:17 06/14/19 16:17 DC Tamsulosin HCl (Flomax) 0.4 mg QHS 06/12/19 21:00 06/14/19 13:01 DC 06/12/19 21:26 0.4 MG Testosterone Cypionate (Depo-Testosterone) 200 mg Q2WKS 06/22/19 09:00 Vancomycin HCl (Vancomycin Oral Solution) 125 mg [id number] 06/16/19 09:00 06/18/19 10:55 125 MG Vasopressin 40 unit/Dextrose 102 ml @ 6 mls/hr CONT PRN 06/15/19 14:30 06/18/19 01:05 6 MLS/HR Vitamin B Complex (Bud B) 1 tab DAILY 06/08/19 12:00 06/12/19 08:36 1 TAB Lab Laboratory Tests Test 06/17/19 18:16 06/17/19 21:45 06/18/19 01:01 06/18/19 06:08 Glucose (Fingerstick) 218 mg/dL (70-99) 336 mg/dL (70-99) 314 mg/dL (70-99) White Blood Count 14.8 x10^3/uL (4.0-11.0) Red Blood Count 3.29 x10^6/uL (4.30-5.70) Hemoglobin 10.4 g/dL (13.0-17.5) Hematocrit 31.0 % (39.0-53.0) Mean Corpuscular Volume 94 fL (79-100) Mean Corpuscular Hemoglobin 32 pg (25-35) Mean Corpuscular Hemoglobin Concent 34 g/dL (31-37) Red Cell Distribution Width 14.5 % (11.5-14.5) Platelet Count 155 x10^3/uL (140-400) Neutrophils (%) (Auto) 82 % (31-73) Lymphocytes (%) (Auto) 8 % (24-48) Monocytes (%) (Auto) 9 % (0-9) Eosinophils (%) (Auto) 1 % (0-3) Basophils (%) (Auto) 0 % (0-3) Neutrophils # (Auto) 12.2 x10^3/uL (1.8-7.7) Lymphocytes # (Auto) 1.1 x10^3/uL (1.0-4.8) Monocytes # (Auto) 1.3 x10^3/uL (0.0-1.1) Eosinophils # (Auto) 0.2 x10^3/uL (0.0-0.7) Basophils # (Auto) 0.0 x10^3/uL (0.0-0.2) Sodium Level 135 mmol/L (136-145) Potassium Level 3.4 mmol/L (3.5-5.1) Chloride Level 103 mmol/L (98-107) Carbon Dioxide Level 22 mmol/L (21-32) Anion Gap 10 (6-14) Blood Urea Nitrogen 79 mg/dL (8-26) Creatinine 3.5 mg/dL (0.7-1.3) Estimated GFR (Cockcroft-Gault) 17.1 BUN/Creatinine Ratio 23 (6-20) Glucose Level 348 mg/dL (70-99) Calcium Level 7.0 mg/dL (8.5-10.1) Phosphorus Level 3.9 mg/dL (2.6-4.7) Magnesium Level 2.0 mg/dL (1.8-2.4) Total Bilirubin 0.4 mg/dL (0.2-1.0) Aspartate Amino Transf (AST/SGOT) 24 U/L (15-37) Alanine Aminotransferase (ALT/SGPT) 8 U/L (16-63) Alkaline Phosphatase 104 U/L (46-116) Total Protein 4.0 g/dL (6.4-8.2) Albumin 0.9 g/dL (3.4-5.0) Albumin/Globulin Ratio 0.3 (1.0-1.7) Test 06/18/19 09:15 O2 Saturation 98 % (92-99) Arterial Blood pH 7.35 (7.35-7.45) Arterial Blood pCO2 at Patient Temp 36 mmHg (35-46) Arterial Blood pO2 at Patient Temp 137 mmHg (65-108) Arterial Blood HCO3 20 mmol/L (21-28) Arterial Blood Base Excess -6 mmol/L (-3-3) FiO2 60 Results All relevant outside records, renal labs, imaging studies, telemetry/EKG's were reviewed. GUNNAR IGLESIAS MD Jun 18, 2019 13:44
[2019-06-18] MEDS ORDERED: IV NORMAL SALINE 1000ML BAG 1,000 ML IV PRN ×2 (15:00)
[2019-06-18] MEDS ORDERED: ALBUMIN HUMAN 25% 200 ML IV ONE (15:14)
[2019-06-18] MEDS: ALBUMIN HUMAN 25% 200 ML IV PRN ×2 (15:30→15:55)
[2019-06-18] MEDS ORDERED: DIALYSIS PATIENT. MC PRN ×2 (15:30)
[2019-06-18] MEDS: SIMVASTATIN 40 MG TABLET. PO SCH (20:18)
[2019-06-18] MEDS ORDERED: TOTAL PARENTERAL NUTRITION IV SCH ×10 (22:00)
[2019-06-18] MEDS ORDERED: [UNRECOGNIZED DRUG - OTHER] IV SCH ×10 (22:00)
[2019-06-18] MEDS ORDERED: DEXTROSE 70% IV SCH ×10 (22:00)
[2019-06-18] MEDS ORDERED: AMINO ACID IV SCH ×10 (22:00)
[2019-06-18] MEDS: INSULIN GLARGINE SYRINGE. SQ SCH (23:29)
[2019-06-19] VITALS (24 sets, daily range): BP systolic 95–153; BP diastolic 47–93
[2019-06-19] MEDS: IV 1/2 NORMAL SALINE 1,000 ML IV SCH ×3 (06:00→22:10)
[2019-06-19] MEDS: LEVOTHYROXINE 175 MCG TABLET PO SCH (06:24)
[2019-06-19 06:54] LABS: BASO % 0 % (0-3); EOS # 0.2 x10^3/uL (0.0-0.7); EOS % 2 % (0-3); HEMATOCRIT 28.8 % (39.0-53.0); HEMOGLOBIN 9.7 g/dL (13.0-17.5); LYMPH # 0.9 x10^3/uL (1.0-4.8); LYMPH % 7 % (24-48); MEAN CORPUSCULAR HEMOGLOBIN 32 pg (25-35); MEAN CORPUSCULAR HGB CONC 34 g/dL (31-37); MEAN CORPUSCULAR VOLUME 94 fL (79-100); MONO # 0.8 x10^3/uL (0.0-1.1); MONO % 6 % (0-9); NEUT # 10.3 x10^3/uL (1.8-7.7); NEUT % 85 % (31-73); PLATELET COUNT 133 x10^3/uL (140-400); RED BLOOD COUNT 3.06 x10^6/uL (4.30-5.70); RED CELL DISTRIBUTION WIDTH 14.7 % (11.5-14.5); WHITE BLOOD COUNT 12.1 x10^3/uL (4.0-11.0)
--- NOTE | 2019-06-19 07:20 | PDOC ---
Infectious Disease Note Subjective Subjective Remains intubated FiO2 up to 40% PEEP 7 Sedated Pressors No fevers last 24 hours + diarrhea TPN ROS ROS unable to do Vital Sign Vital Signs Vital Signs Date Time Temp Pulse Resp B/P (MAP) Pulse Ox O2 Delivery O2 Flow Rate FiO2 06/19/19 05:30 97 Ventilator 06/19/19 04:34 16 06/19/19 02:00 76 153/74 (100) 06/19/19 01:00 97.8 97.8 Physical Exam PHYSICAL EXAM GENERAL: Orally intubated and sedated HEENT: Pupils are equal, NGT, ETT NECK: Supple LUNGS: Course HEART: S1, S2. ABDOMEN: Obese, soft + BS, + rectal tube : Bledsoe EXTREMITIES: Generalized edema. Left shoulder incison well-approx/thiago. SKIN: Without signs of rash NEUROLOGIC: Sedated Temp HDC (06/15) [facility] PIV Labs Lab Laboratory Tests Test 06/18/19 09:15 06/18/19 18:05 06/18/19 23:19 06/19/19 06:34 O2 Saturation 98 % (92-99) Arterial Blood pH 7.35 (7.35-7.45) Arterial Blood pCO2 at Patient Temp 36 mmHg (35-46) Arterial Blood pO2 at Patient Temp 137 mmHg (65-108) Arterial Blood HCO3 20 mmol/L (21-28) Arterial Blood Base Excess -6 mmol/L (-3-3) FiO2 60 Glucose (Fingerstick) 223 mg/dL (70-99) 198 mg/dL (70-99) 255 mg/dL (70-99) Test 06/19/19 06:35 White Blood Count 12.1 x10^3/uL (4.0-11.0) Red Blood Count 3.06 x10^6/uL (4.30-5.70) Hemoglobin 9.7 g/dL (13.0-17.5) Hematocrit 28.8 % (39.0-53.0) Mean Corpuscular Volume 94 fL (79-100) Mean Corpuscular Hemoglobin 32 pg (25-35) Mean Corpuscular Hemoglobin Concent 34 g/dL (31-37) Red Cell Distribution Width 14.7 % (11.5-14.5) Platelet Count 133 x10^3/uL (140-400) Neutrophils (%) (Auto) 85 % (31-73) Lymphocytes (%) (Auto) 7 % (24-48) Monocytes (%) (Auto) 6 % (0-9) Eosinophils (%) (Auto) 2 % (0-3) Basophils (%) (Auto) 0 % (0-3) Neutrophils # (Auto) 10.3 x10^3/uL (1.8-7.7) Lymphocytes # (Auto) 0.9 x10^3/uL (1.0-4.8) Monocytes # (Auto) 0.8 x10^3/uL (0.0-1.1) Eosinophils # (Auto) 0.2 x10^3/uL (0.0-0.7) Basophils # (Auto) 0.0 x10^3/uL (0.0-0.2) Micro Microbiology 06/14/19 AFB Specimen Processing Tissue - Final, Resulted 06/14/19 Acid Fast Bacilli Culture, Resulted Pending 06/14/19 Gram Stain - Final, Resulted 06/14/19 Fungal Culture, Resulted Pending 06/14/19 Fungal Culture Result 1, Resulted Pending 06/13/19 Blood Culture - Preliminary, Resulted NO GROWTH AFTER 4 DAYS Objective Assessment LUE abscess s/p 10 ml removal 06/13. group B strep -S/p Left shoulder open incision and drainage with arthrotomy, debridement of bone and bone cement, and joint irrigation 06/14 G B strep C. 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
[2019-06-19 07:24] LABS: ALBUMIN 1.3 g/dL (3.4-5.0); ALBUMIN/GLOBULIN RATIO 0.5 (1.0-1.7); CALCIUM 7.1 mg/dL (8.5-10.1); CREATININE 2.7 mg/dL (0.7-1.3); MAGNESIUM 1.8 mg/dL (1.8-2.4); POTASSIUM 3.2 mmol/L (3.5-5.1); TOTAL BILIRUBIN 0.3 mg/dL (0.2-1.0); TOTAL PROTEIN 3.9 g/dL (6.4-8.2)
[2019-06-19] MEDS: INSULIN LISPRO 300 UNITS/3 ML VIAL. SQ SCH ×3 (07:49→17:49)
--- NOTE | 2019-06-19 07:58 | RAD ---
Chest radiograph 06/19/2019 9:00 AM INDICATION: Respiratory failure COMPARISON: 06/17/2019 TECHNIQUE: Portable frontal semi-upright view of the chest is provided. FINDINGS: The cardiomediastinal silhouette is similar appearance. Median sternotomy changes are present. New right IJ double-lumen catheter is identified with distal tip projecting over the cavoatrial junction. Distal portion of the nasogastric tube is not well visualized and repeat radiograph may be of benefit if clinically warranted. Endotracheal tube is in similar position. Bibasilar subsegmental atelectasis is noted, stable. Mild pulmonary vascular congestion. No pneumothorax. Left shoulder arthroplasty is partially profiled. IMPRESSION: Right IJ double-lumen catheter is identified with the distal tip projecting over the cavoatrial junction. Or pneumothorax. However, distal portion of the nasogastric tube is not well visualized and follow-up radiograph may be of benefit if clinically warranted. Similar aeration of lungs compared to prior examination. Electronically signed by: Christina Borrero MD (06/19/2019 7:54 AM) [facility]
[2019-06-19 08:43] LABS: BASE EXCESS ABG -6 mmol/L (-3-3); HCO3 ABG 18 mmol/L (21-28); PCO2 ABG 28 mmHg (35-46); PO2 ABG 138 mmHg (65-108); SAT O2 ABG 97 % (92-99)
[2019-06-19 08:44] LABS: FIO2 ABG 40
[2019-06-19] MEDS: VITAMIN B COMPLEX TABLET. PO SCH (08:49)
[2019-06-19] MEDS: MORPHINE ER 30 MG TABLET.ER PO SCH ×2 (08:49→21:00)
[2019-06-19] MEDS: PANTOPRAZOLE IV PUSH 40 MG VIAL. IVP SCH (08:49)
[2019-06-19] MEDS: VANCOMYCIN 125 MG/2.5 ML ORAL SOLUTION. PO SCH ×4 (08:49→20:46)
[2019-06-19] MEDS: FINASTERIDE 5 MG TABLET. PO SCH (08:49)
--- NOTE | 2019-06-19 08:49 | PN ---
DATE: 06/19/2019 SUBJECTIVE: The patient is sedated, intubated and mechanically ventilated. He continues to be on TPN and vasopressors in the form of vasopressin and norepinephrine. He is also on IV ceftriaxone as well as oral vancomycin as he grew beta hemolytic Streptococcus group B from left shoulder abscess fluid and he developed C. diff colitis for which he is on p.o. vancomycin. PHYSICAL EXAMINATION: GENERAL: When I examined him this morning, he looked pale, but no jaundice, cyanosis or thyromegaly. No jugular venous distention. No limb edema. VITAL SIGNS: His heart rate was 76, blood pressure 153/74, his temperature was 97.8, respiratory rate 20 and oxygen saturation 100% on FiO2 of 40%. HEAD, EYES, EARS, NOSE AND THROAT: Showed normocephalic, atraumatic. He has nasogastric tube in the left nostril and has also endotracheal tube in place. NECK: Supple. HEART: Showed normal first and second heart sounds. No gallop or murmur. CHEST: Showed equal bilateral expansion, air entry, vesicular sounds. No crepitation or rhonchi. ABDOMEN: Distended, soft, nontender. No guarding or rigidity. No organomegaly. All hernial orifice intact. Bowel sounds normal. NEUROLOGIC: He is heavily sedated. His intake over the last 24 hours was 6674, output was 1175. LABORATORY DATA: As of this morning, his white cell count is 18,700, hemoglobin 12, hematocrit 36, MCV 96 and platelet count 446,000. His chemistry showed a serum sodium 133, potassium 3.2, chloride 101, bicarbonate 25, anion gap of 7, BUN is 59, creatinine 2.7, estimated GFR was 23 mL per minute. His glucose was 319, calcium is 7.1, phosphorus was 3 and magnesium was 1.8. Total bilirubin, AST, ALT, alkaline phosphatase were normal. Total protein was 3.9, albumin 1.3. ASSESSMENT: 1. Left upper extremity abscess, status post aspiration of 10 mL on 06/13 which grew group B streptococcus. He is status post left shoulder open incision and drainage with arthrotomy, debridement of bone and bone cement and joint irrigation on 06/14. 2. Clostridium difficile colitis. 3. PENICILLIN ALLERGY, HIVES. He has tolerated chemotherapy ____. 4. Hypertension, currently on vasopressin and Levophed. 5. Postoperative respiratory failure, intubated and mechanically ventilated. 6. Leukocytosis, status post dexamethasone began postoperatively. 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 8. Coronary artery disease. The patient has group B sepsis, erosive gastritis, status post EGD and intervention had a Bledsoe catheter in place. He has fracture of the 2 superior mediastinal wires. PLAN: Continue with IV ceftriaxone and p.o. vancomycin. Continue with mechanical ventilation and wean as tolerated. Continue with hemodialysis. Continue to monitor his labs. Continue with contact isolation. His potassium and sodium is low. I have asked the pharmacist to adjust his TPN. KERI DIGGS MD DR: PAIGE/chastity JOB#: [id number] / [id number]
[2019-06-19] MEDS: VASOPRESSIN 40 UNIT in IV DEXTROSE 5% 100ML 100 ML IV PRN (08:50)
[2019-06-19] MEDS: MIDAZOLAM 100mg/100ml NS BAG 100 ML IV PRN (08:50)
[2019-06-19] MEDS: cefTRIAXone IV Push 2 GM VIAL. IVP SCH (08:50)
--- NOTE | 2019-06-19 09:40 | PDOC ---
SUBJECTIVE ROS stable , Intubated, on pressors OBJECTIVE Vital Signs Vital Signs Date Time Temp Pulse Resp B/P (MAP) Pulse Ox O2 Delivery O2 Flow Rate FiO2 06/19/19 08:50 Ventilator 06/19/19 07:56 100 06/19/19 07:46 21 06/19/19 06:00 66 138/60 (86) 06/19/19 01:00 97.8 97.8 I & 0 Intake and Output 06/19/19 07:00 Intake Total 5832 ml Output Total 205 ml Balance 5627 ml IV Total 5832 ml Output Urine Total 205 ml # Bowel Movements 2 PHYSICAL EXAM Physical Exam GENERAL: Orally intubated and sedated HEENT: NGT, ETT NECK: Supple LUNGS: CTA ant HEART: S1, S2. ABDOMEN: soft + BS, + rectal tube : Bledsoe EXTREMITIES: Edema 2+ has a right hand deformity. His left shoulder is dressed. 2 plus edema. Left heel protector. SKIN: No rash. NEUROLOGIC: Sedated Temp HDC (06/15) DIAGNOSIS/ASSESSMENT Assessment & Plan RENATA-ATN requiring HD, dialyzed yesterday Stable, currently no indication today , stable e-Lytes, acid base Monitor Metabolic acidosis- resolved Hyponatremia- Normal after corrected for glucose Hypokalemia- adjust K in TPN Replace as needed CKD stage 3- Cr Prob 1.5 HypoAlbuminemia - severe Hypotension- BP meds held Urinary retention- Flomax on Hold due to Low BP LUE abscess s/p Left shoulder open incision and drainage with arthrotomy, debridement of bone and bone cement, and joint irrigation 06/14 group B strep Post op resp failure - intubated - Pulm following C. diff positive, 06/14 Erosive Gastritis s/p EGD 06/08 CAD - Cardiology following Discussed with RN COMMENT/RELEVANT DATA Meds Current Medications Medications (Trade) Dose Ordered Sig/Lauren Start Time Stop Time Status Last Admin Dose Admin Albumin Human 200 ml @ 200 mls/hr 1X PRN PRN 06/18/19 15:00 06/18/19 20:59 DC 06/18/19 15:55 200 MLS/HR Amino Acids/ Electrolytes/ Dextrose 1,000 ml @ 80 mls/hr [id number] 06/14/19 10:30 06/15/19 21:59 DC 06/15/19 16:23 80 MLS/HR Bisacodyl (Dulcolax Supp) 10 mg 1X ONCE 06/07/19 17:45 06/07/19 17:46 DC 06/07/19 21:40 10 MG Bisacodyl (Dulcolax Tab) 5 mg PRN DAILY PRN 06/11/19 15:45 Bupivacaine HCl/ Epinephrine Bitart (Sensorcaine-Epi 0.25%-1:316725 Mpf) 30 ml 1X ONCE 06/14/19 17:45 06/14/19 17:46 Cancel Ceftriaxone Sodium (Rocephin) 2 gm Q24H 06/19/19 09:00 06/19/19 08:50 2 GM Clindamycin Phosphate 50 ml @ As Directed STK-MED ONCE 06/14/19 18:07 06/14/19 18:07 DC Daptomycin 560 mg/ Sodium Chloride 50 ml @ 100 mls/hr Q48H 06/15/19 14:00 06/18/19 07:56 DC 06/17/19 14:29 100 MLS/HR Dexamethasone Sodium Phosphate (Decadron) 4 mg STK-MED ONCE 06/14/19 16:17 06/14/19 16:17 DC Dextrose 250 ml PRN Q15MIN PRN 06/09/19 11:45 06/09/19 15:19 DC Dextrose (Dextrose 50%-Water Syringe) 12.5 gm PRN Q15MIN PRN 06/09/19 11:45 Ephedrine Sulfate (ePHEDrine PF IN SALINE SYRINGE) 50 mg STK-MED ONCE 06/14/19 19:21 06/14/19 19:21 DC Famotidine (Pepcid Vial) 20 mg STK-MED ONCE 06/14/19 16:17 06/14/19 16:17 DC Fentanyl Citrate 30 ml @ 0 mls/hr CONT PRN 06/14/19 20:00 06/19/19 04:34 2.5 MLS/HR Fentanyl Citrate (Fentanyl 2ml Vial) 100 mcg STK-MED ONCE 06/14/19 16:17 06/14/19 16:17 DC Finasteride (Proscar) 5 mg DAILY 06/12/19 12:00 06/13/19 09:39 DC Furosemide (Lasix) 40 mg DAILY 06/08/19 12:00 06/14/19 13:01 DC 06/12/19 08:36 40 MG Heparin Sodium (Porcine) (Heparin Sodium) 2,600 unit 1X ONCE 06/15/19 11:00 06/15/19 11:01 DC Hydromorphone HCl (Dilaudid) 2 mg PRN Q3HRS PRN 06/07/19 22:00 06/14/19 23:55 DC 06/14/19 12:39 2 MG Info (PHARMACY MONITORING -- do not chart) 1 each PRN DAILY PRN 06/18/19 15:30 UNV Info (Tpn Per Pharmacy) 1 each PRN DAILY PRN 06/15/19 11:30 06/18/19 11:19 1 EACH Insulin Glargine (Lantus Syringe) 30 unit QHS 06/08/19 21:00 06/18/19 23:29 30 UNIT Insulin Human Lispro (HumaLOG) 0-9 UNITS Q6HRS 06/16/19 12:00 06/19/19 07:49 7 UNITS Ketamine HCl (Ketamine) 50 mg STK-MED ONCE 06/14/19 17:03 06/14/19 17:03 DC Levothyroxine Sodium (Synthroid) 175 mcg DAILY06 06/08/19 12:00 06/19/19 06:24 175 MCG Lidocaine HCl (Lidocaine Pf 2% Vial) 5 ml STK-MED ONCE 06/14/19 16:17 06/14/19 16:17 DC Lidocaine/Sodium Bicarbonate (Buffered Lidocaine 1%) 3 ml 1X ONCE 06/15/19 11:00 06/15/19 11:01 DC Lorazepam (Ativan) 0.5 mg PRN Q6HRS PRN 06/07/19 18:00 06/07/19 18:14 DC Losartan Potassium (Cozaar) 100 mg DAILY 06/08/19 12:00 06/14/19 13:01 DC 06/12/19 08:36 100 MG Magnesium Sulfate 50 ml @ 25 mls/hr 1X ONCE 06/16/19 08:30 06/16/19 10:29 DC 06/16/19 08:27 25 MLS/HR Meropenem 1 gm/ Sodium Chloride 100 ml @ 200 mls/hr DAILY 06/15/19 09:00 06/19/19 07:22 DC 06/18/19 10:55 200 MLS/HR Methylnaltrexone [place] (Relistor) 6 mg 1X ONCE 06/14/19 14:00 06/14/19 14:01 DC 06/14/19 14:15 6 MG Metoprolol Succinate (Toprol Xl) 200 mg DAILY 06/08/19 12:00 06/14/19 13:01 DC 06/12/19 08:36 200 MG Metronidazole 100 ml @ 100 mls/hr Q8HRS 06/15/19 17:30 06/19/19 07:22 DC 06/19/19 06:24 100 MLS/HR Midazolam HCl 100 ml @ 0 mls/hr CONT PRN 06/15/19 13:00 06/19/19 08:50 7 MLS/HR Morphine Sulfate (Ms Contin) 60 mg BID 06/08/19 12:00 06/19/19 08:50 60 MG Nicotine (Nicoderm Cq 21mg) 1 patch PRN DAILY PRN 06/07/19 18:00 06/07/19 18:14 DC Nifedipine (Procardia Xl) 60 mg DAILY 06/08/19 12:00 06/14/19 13:01 DC 06/12/19 08:36 60 MG Non-Formulary Medication (Insuln Asp Prt/ Insulin Aspart (Novolog Mix 70-30 Flexpen Syrn)) 1 unit BIDACBL 06/08/19 11:30 06/08/19 19:34 DC Norepinephrine Bitartrate 250 ml @ 17.398 mls/ hr CONT PRN 06/14/19 14:30 06/18/19 17:55 34.796 MLS/HR Ondansetron HCl (Zofran) 4 mg STK-MED ONCE 06/14/19 16:17 06/14/19 16:17 DC Pantoprazole Sodium (PROTONIX VIAL for IV PUSH) 40 mg DAILYAC 06/14/19 07:30 06/19/19 08:50 40 MG Pantoprazole Sodium (Protonix) 40 mg DAILYAC 06/12/19 07:30 06/13/19 13:27 DC 06/12/19 08:36 40 MG Phenylephrine HCl (PHENYLEPHRINE in 0.9% NACL PF) 1 mg STK-MED ONCE 06/14/19 17:03 06/14/19 17:04 DC Polyethylene Glycol (miraLAX PACKET) 17 gm PRN DAILY PRN 06/11/19 15:45 Propofol 100 ml @ 0 mls/hr CONT PRN 06/14/19 20:00 06/15/19 10:33 8.351 MLS/HR Ringer's Solution 1,000 ml @ 75 mls/hr [id number] 06/08/19 09:15 06/09/19 08:01 DC 06/08/19 14:01 75 MLS/HR Rocuronium [place] (Zemuron) 50 mg STK-MED ONCE 06/14/19 16:32 06/14/19 16:32 DC Simvastatin (Zocor) 40 mg QHS 06/08/19 21:00 06/18/19 20:18 40 MG Sodium Bicarbonate 50 meq/Sodium Chloride 1,050 ml @ 125 mls/hr Q8H24M 06/15/19 10:15 06/16/19 18:21 DC 06/16/19 09:26 125 MLS/HR Sodium Chloride 1,000 ml @ 400 mls/hr Q2H30M PRN 06/18/19 15:00 06/19/19 02:59 DC Sodium Chloride 90 meq/Potassium Chloride 50 meq/ Magnesium Sulfate 10 meq/Calcium Gluconate 10 meq/ Multivitamins 10 ml/Chromium/ Copper/Manganese/ Seleni/Zn 1 ml/ Total Parenteral Nutrition/Amino Acids/Dextrose 1,512 ml @ 63 mls/hr TPN CONT 06/15/19 22:00 06/16/19 21:59 DC 06/16/19 00:19 63 MLS/HR Sodium Chloride 90 meq/Potassium Chloride 50 meq/ Magnesium Sulfate 10 meq/Calcium Gluconate 10 meq/ Multivitamins 10 ml/Chromium/ Copper/Manganese/ Seleni/Zn 1 ml/ Total Parenteral Nutrition/Amino Acids/Dextrose/ Fat Emulsion Intravenous 1,512 ml @ 63 mls/hr TPN CONT 06/16/19 22:00 06/17/19 21:59 DC 06/16/19 22:43 63 MLS/HR Sodium Chloride 90 meq/Potassium Chloride 50 meq/ Potassium Phosphate 13.6 mmol/Magnesium Sulfate 10 meq/ Calcium Gluconate 10 meq/ Multivitamins 10 ml/Chromium/ Copper/Manganese/ Seleni/Zn 1 ml/ Total Parenteral Nutrition/Amino Acids/Dextrose/ Fat Emulsion Intravenous 1,512 ml @ 63 mls/hr TPN CONT 06/17/19 22:00 06/18/19 21:59 DC 06/17/19 21:48 63 MLS/HR Sodium Chloride 90 meq/Potassium Chloride 70 meq/ Potassium Phosphate 13.6 mmol/Magnesium Sulfate 10 meq/ Calcium Gluconate 10 meq/ Multivitamins 10 ml/Chromium/ Copper/Manganese/ Seleni/Zn 1 ml/ Total Parenteral Nutrition/Amino Acids/Dextrose/ Fat Emulsion Intravenous 1,512 ml @ 63 mls/hr TPN CONT 06/18/19 22:00 06/19/19 21:59 06/18/19 22:59 63 MLS/HR Succinylcholine Chloride (Anectine) 200 mg STK-MED ONCE 06/14/19 16:17 06/14/19 16:17 DC Tamsulosin HCl (Flomax) 0.4 mg QHS 06/12/19 21:00 06/14/19 13:01 DC 06/12/19 21:26 0.4 MG Testosterone Cypionate (Depo-Testosterone) 200 mg Q2WKS 06/22/19 09:00 Vancomycin HCl (Vancomycin Oral Solution) 125 mg [id number] 06/16/19 09:00 06/19/19 08:50 125 MG Vasopressin 40 unit/Dextrose 102 ml @ 6 mls/hr CONT PRN 06/15/19 14:30 06/19/19 08:50 6 MLS/HR Vitamin B Complex (Bud B) 1 tab DAILY 06/08/19 12:00 06/19/19 08:50 1 TAB Lab Laboratory Tests Test 06/18/19 18:05 06/18/19 23:19 06/19/19 06:34 06/19/19 06:35 Glucose (Fingerstick) 223 mg/dL (70-99) 198 mg/dL (70-99) 255 mg/dL (70-99) White Blood Count 12.1 x10^3/uL (4.0-11.0) Red Blood Count 3.06 x10^6/uL (4.30-5.70) Hemoglobin 9.7 g/dL (13.0-17.5) Hematocrit 28.8 % (39.0-53.0) Mean Corpuscular Volume 94 fL (79-100) Mean Corpuscular Hemoglobin 32 pg (25-35) Mean Corpuscular Hemoglobin Concent 34 g/dL (31-37) Red Cell Distribution Width 14.7 % (11.5-14.5) Platelet Count 133 x10^3/uL (140-400) Neutrophils (%) (Auto) 85 % (31-73) Lymphocytes (%) (Auto) 7 % (24-48) Monocytes (%) (Auto) 6 % (0-9) Eosinophils (%) (Auto) 2 % (0-3) Basophils (%) (Auto) 0 % (0-3) Neutrophils # (Auto) 10.3 x10^3/uL (1.8-7.7) Lymphocytes # (Auto) 0.9 x10^3/uL (1.0-4.8) Monocytes # (Auto) 0.8 x10^3/uL (0.0-1.1) Eosinophils # (Auto) 0.2 x10^3/uL (0.0-0.7) Basophils # (Auto) 0.0 x10^3/uL (0.0-0.2) Sodium Level 133 mmol/L (136-145) Potassium Level 3.2 mmol/L (3.5-5.1) Chloride Level 101 mmol/L (98-107) Carbon Dioxide Level 25 mmol/L (21-32) Anion Gap 7 (6-14) Blood Urea Nitrogen 59 mg/dL (8-26) Creatinine 2.7 mg/dL (0.7-1.3) Estimated GFR (Cockcroft-Gault) 23.0 BUN/Creatinine Ratio 22 (6-20) Glucose Level 319 mg/dL (70-99) Calcium Level 7.1 mg/dL (8.5-10.1) Phosphorus Level 3.0 mg/dL (2.6-4.7) Magnesium Level 1.8 mg/dL (1.8-2.4) Total Bilirubin 0.3 mg/dL (0.2-1.0) Aspartate Amino Transf (AST/SGOT) 16 U/L (15-37) Alanine Aminotransferase (ALT/SGPT) 8 U/L (16-63) Alkaline Phosphatase 74 U/L (46-116) Total Protein 3.9 g/dL (6.4-8.2) Albumin 1.3 g/dL (3.4-5.0) Albumin/Globulin Ratio 0.5 (1.0-1.7) Test 06/19/19 08:00 O2 Saturation 97 % (92-99) Arterial Blood pH 7.42 (7.35-7.45) Arterial Blood pCO2 at Patient Temp 28 mmHg (35-46) Arterial Blood pO2 at Patient Temp 138 mmHg (65-108) Arterial Blood HCO3 18 mmol/L (21-28) Arterial Blood Base Excess -6 mmol/L (-3-3) FiO2 40 Results All relevant outside records, renal labs, imaging studies, telemetry/EKG's were reviewed. GUNNAR IGLESIAS MD Jun 19, 2019 09:40
--- NOTE | 2019-06-19 10:42 | NUR ---
IP: Pt is C.diff + requiring contact plus precautions using brown sign.
--- NOTE | 2019-06-19 11:10 | PDOC ---
SUBJECTIVE Subjective Pt sedated, ventilated, appears comfortable. OBJECTIVE Objective Physical Exam: General appearance: Ventilated, sedated Head: Normocephalic, without obvious abnormality Eyes: conjunctivae/corneas clear. PERRL, EOM's intact. Fundi benign Lungs: Regular respirations, non labored breathing Abdomen: soft, non-tender, + 3rd spacing of fluid is present to abdomen. Pelvic: + scrotal swelling noted, about the size of a grapefruit no open areas or signs or symptoms of infection, + Bledsoe catheter in place draining clear yellow urine. Device in good working order. Extremities: + bilateral pitting edema, + 2 BLLE Vital Signs Vital Signs Date Time Temp Pulse Resp B/P (MAP) Pulse Ox O2 Delivery O2 Flow Rate FiO2 06/19/19 10:00 65 17 141/65 (90) 100 Ventilator 06/19/19 09:00 74 20 110/71 (84) 100 Ventilator 06/19/19 08:50 Ventilator 06/19/19 08:00 97.7 58 16 143/65 (91) 100 Ventilator 97.7 06/19/19 07:56 100 Ventilator 06/19/19 07:46 21 100 Ventilator 06/19/19 07:00 66 16 107/73 (84) 100 Ventilator 06/19/19 06:00 66 16 138/60 (86) 100 Ventilator 06/19/19 05:30 97 Ventilator 06/19/19 05:00 64 18 141/55 (83) 100 Ventilator 06/19/19 04:34 16 100 Ventilator 06/19/19 04:00 66 15 132/74 (93) 100 Ventilator 06/19/19 04:00 Mechanical Ventilator 06/19/19 03:05 97 Ventilator 06/19/19 03:00 72 21 119/83 (95) 100 Ventilator 06/19/19 02:00 76 22 153/74 (100) 100 Ventilator 06/19/19 01:10 97 Ventilator 06/19/19 01:00 97.8 75 20 146/69 (94) 100 Ventilator 97.8 06/19/19 00:15 74 23 146/76 (99) 100 Ventilator 06/19/19 00:00 74 23 148/73 (98) 100 Ventilator 06/19/19 00:00 Mechanical Ventilator 06/18/19 23:15 76 21 159/78 (105) 100 Ventilator 06/18/19 23:00 76 20 156/76 (102) 100 Ventilator 06/18/19 22:50 97 Ventilator 06/18/19 22:07 12 99 Ventilator 06/18/19 22:00 77 20 160/80 (106) 100 Ventilator 06/18/19 21:45 78 21 162/76 (104) 100 Ventilator 06/18/19 21:40 97 Ventilator 06/18/19 21:30 80 19 159/89 (112) 100 Ventilator 06/18/19 21:15 80 20 158/81 (106) 100 Ventilator 06/18/19 21:00 82 21 178/79 (112) 100 Ventilator 06/18/19 20:45 84 23 172/96 (121) 100 Ventilator 06/18/19 20:30 86 23 162/77 (105) 100 Ventilator 06/18/19 20:15 84 24 166/80 (108) 100 Ventilator 06/18/19 20:00 Mechanical Ventilator 06/18/19 20:00 84 21 165/80 (108) 100 Ventilator 06/18/19 19:27 100 Ventilator 06/18/19 19:00 97.4 86 12 165/92 (116) 100 Ventilator 97.4 06/18/19 18:00 93 24 126/76 (93) 100 Ventilator 06/18/19 17:55 100 Ventilator 06/18/19 17:02 100 Ventilator 06/18/19 17:00 92 19 110/62 (78) 100 Ventilator 06/18/19 16:00 Mechanical Ventilator 06/18/19 16:00 97.6 94 19 84/62 (69) 100 Ventilator 97.6 06/18/19 15:13 100 Ventilator 06/18/19 15:00 81 19 91/57 (68) 100 Ventilator 06/18/19 14:00 81 19 107/64 (78) 100 Ventilator 06/18/19 13:05 100 Ventilator 06/18/19 13:00 68 24 100/91 (94) 100 Ventilator 06/18/19 12:00 97.9 76 16 108/56 (73) 100 Ventilator 97.9 06/18/19 12:00 Mechanical Ventilator 06/18/19 11:23 100 Ventilator I & O Intake and Output 06/19/19 07:00 Intake Total 5832 ml Output Total 205 ml Balance 5627 ml IV Total 5832 ml Output Urine Total 205 ml # Bowel Movements 2 PHYSICAL EXAM Physical Exam Physical Exam: General appearance: Ventilated, sedated Head: Normocephalic, without obvious abnormality Eyes: conjunctivae/corneas clear. PERRL, EOM's intact. Fundi benign Lungs: Regular respirations, non labored breathing Abdomen: soft, non-tender, + 3rd spacing of fluid is present to abdomen. Pelvic: + scrotal swelling noted,about the size of a grapefruit, no open areas or signs or symptoms of infection, + Bledsoe catheter in place draining clear yellow urine. Device in good working order. Extremities: + bilateral pitting edema, + 2 BLLE ASSESSMENT/PLAN Assessment/Plan Patient sedated and ventilated Bledsoe catheter working well. Voiding trial when patient recovers, for now maintain Bledsoe. Scrotum is profoundly swollen, likely from 3rd spacing of fluid, but will get scrotal US to be sure. Problems: (1) Bledsoe catheter in place COMMENT Lab Laboratory Tests Test 06/18/19 18:05 06/18/19 23:19 06/19/19 06:34 06/19/19 06:35 Glucose (Fingerstick) 223 mg/dL (70-99) 198 mg/dL (70-99) 255 mg/dL (70-99) White Blood Count 12.1 x10^3/uL (4.0-11.0) Red Blood Count 3.06 x10^6/uL (4.30-5.70) Hemoglobin 9.7 g/dL (13.0-17.5) Hematocrit 28.8 % (39.0-53.0) Mean Corpuscular Volume 94 fL (79-100) Mean Corpuscular Hemoglobin 32 pg (25-35) Mean Corpuscular Hemoglobin Concent 34 g/dL (31-37) Red Cell Distribution Width 14.7 % (11.5-14.5) Platelet Count 133 x10^3/uL (140-400) Neutrophils (%) (Auto) 85 % (31-73) Lymphocytes (%) (Auto) 7 % (24-48) Monocytes (%) (Auto) 6 % (0-9) Eosinophils (%) (Auto) 2 % (0-3) Basophils (%) (Auto) 0 % (0-3) Neutrophils # (Auto) 10.3 x10^3/uL (1.8-7.7) Lymphocytes # (Auto) 0.9 x10^3/uL (1.0-4.8) Monocytes # (Auto) 0.8 x10^3/uL (0.0-1.1) Eosinophils # (Auto) 0.2 x10^3/uL (0.0-0.7) Basophils # (Auto) 0.0 x10^3/uL (0.0-0.2) Sodium Level 133 mmol/L (136-145) Potassium Level 3.2 mmol/L (3.5-5.1) Chloride Level 101 mmol/L (98-107) Carbon Dioxide Level 25 mmol/L (21-32) Anion Gap 7 (6-14) Blood Urea Nitrogen 59 mg/dL (8-26) Creatinine 2.7 mg/dL (0.7-1.3) Estimated GFR (Cockcroft-Gault) 23.0 BUN/Creatinine Ratio 22 (6-20) Glucose Level 319 mg/dL (70-99) Calcium Level 7.1 mg/dL (8.5-10.1) Phosphorus Level 3.0 mg/dL (2.6-4.7) Magnesium Level 1.8 mg/dL (1.8-2.4) Total Bilirubin 0.3 mg/dL (0.2-1.0) Aspartate Amino Transf (AST/SGOT) 16 U/L (15-37) Alanine Aminotransferase (ALT/SGPT) 8 U/L (16-63) Alkaline Phosphatase 74 U/L (46-116) Total Protein 3.9 g/dL (6.4-8.2) Albumin 1.3 g/dL (3.4-5.0) Albumin/Globulin Ratio 0.5 (1.0-1.7) Test 06/19/19 08:00 O2 Saturation 97 % (92-99) Arterial Blood pH 7.42 (7.35-7.45) Arterial Blood pCO2 at Patient Temp 28 mmHg (35-46) Arterial Blood pO2 at Patient Temp 138 mmHg (65-108) Arterial Blood HCO3 18 mmol/L (21-28) Arterial Blood Base Excess -6 mmol/L (-3-3) FiO2 40 FLORA MANNING APRN Jun 19, 2019 11:10
--- NOTE | 2019-06-19 11:21 | PDOC ---
PULMONARY PROGRESS NOTES Subjective SEDATED/ PT ON AC MODE FIO2 DOWN TO 40 % STILL ON PRESSORS Vitals Vital Signs Date Time Temp Pulse Resp B/P (MAP) Pulse Ox O2 Delivery O2 Flow Rate FiO2 06/19/19 10:00 65 17 141/65 (90) 100 Ventilator 06/19/19 08:00 97.7 97.7 Lungs: Crackles Cardiovascular: S1, S2 Abdomen: Other (distended) Extremities: Other (2+edema, scrotal edema) Skin: Warm Labs Laboratory Tests Test 06/17/19 12:48 06/17/19 18:16 06/17/19 21:45 06/18/19 01:01 Glucose (Fingerstick) 106 mg/dL (70-99) 218 mg/dL (70-99) 336 mg/dL (70-99) 314 mg/dL (70-99) Test 06/18/19 06:08 06/18/19 09:15 06/18/19 18:05 06/18/19 23:19 White Blood Count 14.8 x10^3/uL (4.0-11.0) Red Blood Count 3.29 x10^6/uL (4.30-5.70) Hemoglobin 10.4 g/dL (13.0-17.5) Hematocrit 31.0 % (39.0-53.0) Mean Corpuscular Volume 94 fL (79-100) Mean Corpuscular Hemoglobin 32 pg (25-35) Mean Corpuscular Hemoglobin Concent 34 g/dL (31-37) Red Cell Distribution Width 14.5 % (11.5-14.5) Platelet Count 155 x10^3/uL (140-400) Neutrophils (%) (Auto) 82 % (31-73) Lymphocytes (%) (Auto) 8 % (24-48) Monocytes (%) (Auto) 9 % (0-9) Eosinophils (%) (Auto) 1 % (0-3) Basophils (%) (Auto) 0 % (0-3) Neutrophils # (Auto) 12.2 x10^3/uL (1.8-7.7) Lymphocytes # (Auto) 1.1 x10^3/uL (1.0-4.8) Monocytes # (Auto) 1.3 x10^3/uL (0.0-1.1) Eosinophils # (Auto) 0.2 x10^3/uL (0.0-0.7) Basophils # (Auto) 0.0 x10^3/uL (0.0-0.2) Sodium Level 135 mmol/L (136-145) Potassium Level 3.4 mmol/L (3.5-5.1) Chloride Level 103 mmol/L (98-107) Carbon Dioxide Level 22 mmol/L (21-32) Anion Gap 10 (6-14) Blood Urea Nitrogen 79 mg/dL (8-26) Creatinine 3.5 mg/dL (0.7-1.3) Estimated GFR (Cockcroft-Gault) 17.1 BUN/Creatinine Ratio 23 (6-20) Glucose Level 348 mg/dL (70-99) Calcium Level 7.0 mg/dL (8.5-10.1) Phosphorus Level 3.9 mg/dL (2.6-4.7) Magnesium Level 2.0 mg/dL (1.8-2.4) Total Bilirubin 0.4 mg/dL (0.2-1.0) Aspartate Amino Transf (AST/SGOT) 24 U/L (15-37) Alanine Aminotransferase (ALT/SGPT) 8 U/L (16-63) Alkaline Phosphatase 104 U/L (46-116) Total Protein 4.0 g/dL (6.4-8.2) Albumin 0.9 g/dL (3.4-5.0) Albumin/Globulin Ratio 0.3 (1.0-1.7) O2 Saturation 98 % (92-99) Arterial Blood pH 7.35 (7.35-7.45) Arterial Blood pCO2 at Patient Temp 36 mmHg (35-46) Arterial Blood pO2 at Patient Temp 137 mmHg (65-108) Arterial Blood HCO3 20 mmol/L (21-28) Arterial Blood Base Excess -6 mmol/L (-3-3) FiO2 60 Glucose (Fingerstick) 223 mg/dL (70-99) 198 mg/dL (70-99) Test 06/19/19 06:34 06/19/19 06:35 06/19/19 08:00 Glucose (Fingerstick) 255 mg/dL (70-99) White Blood Count 12.1 x10^3/uL (4.0-11.0) Red Blood Count 3.06 x10^6/uL (4.30-5.70) Hemoglobin 9.7 g/dL (13.0-17.5) Hematocrit 28.8 % (39.0-53.0) Mean Corpuscular Volume 94 fL (79-100) Mean Corpuscular Hemoglobin 32 pg (25-35) Mean Corpuscular Hemoglobin Concent 34 g/dL (31-37) Red Cell Distribution Width 14.7 % (11.5-14.5) Platelet Count 133 x10^3/uL (140-400) Neutrophils (%) (Auto) 85 % (31-73) Lymphocytes (%) (Auto) 7 % (24-48) Monocytes (%) (Auto) 6 % (0-9) Eosinophils (%) (Auto) 2 % (0-3) Basophils (%) (Auto) 0 % (0-3) Neutrophils # (Auto) 10.3 x10^3/uL (1.8-7.7) Lymphocytes # (Auto) 0.9 x10^3/uL (1.0-4.8) Monocytes # (Auto) 0.8 x10^3/uL (0.0-1.1) Eosinophils # (Auto) 0.2 x10^3/uL (0.0-0.7) Basophils # (Auto) 0.0 x10^3/uL (0.0-0.2) Sodium Level 133 mmol/L (136-145) Potassium Level 3.2 mmol/L (3.5-5.1) Chloride Level 101 mmol/L (98-107) Carbon Dioxide Level 25 mmol/L (21-32) Anion Gap 7 (6-14) Blood Urea Nitrogen 59 mg/dL (8-26) Creatinine 2.7 mg/dL (0.7-1.3) Estimated GFR (Cockcroft-Gault) 23.0 BUN/Creatinine Ratio 22 (6-20) Glucose Level 319 mg/dL (70-99) Calcium Level 7.1 mg/dL (8.5-10.1) Phosphorus Level 3.0 mg/dL (2.6-4.7) Magnesium Level 1.8 mg/dL (1.8-2.4) Total Bilirubin 0.3 mg/dL (0.2-1.0) Aspartate Amino Transf (AST/SGOT) 16 U/L (15-37) Alanine Aminotransferase (ALT/SGPT) 8 U/L (16-63) Alkaline Phosphatase 74 U/L (46-116) Total Protein 3.9 g/dL (6.4-8.2) Albumin 1.3 g/dL (3.4-5.0) Albumin/Globulin Ratio 0.5 (1.0-1.7) O2 Saturation 97 % (92-99) Arterial Blood pH 7.42 (7.35-7.45) Arterial Blood pCO2 at Patient Temp 28 mmHg (35-46) Arterial Blood pO2 at Patient Temp 138 mmHg (65-108) Arterial Blood HCO3 18 mmol/L (21-28) Arterial Blood Base Excess -6 mmol/L (-3-3) FiO2 40 Laboratory Tests Test 06/18/19 18:05 06/18/19 23:19 06/19/19 06:34 06/19/19 06:35 Glucose (Fingerstick) 223 mg/dL (70-99) 198 mg/dL (70-99) 255 mg/dL (70-99) White Blood Count 12.1 x10^3/uL (4.0-11.0) Red Blood Count 3.06 x10^6/uL (4.30-5.70) Hemoglobin 9.7 g/dL (13.0-17.5) Hematocrit 28.8 % (39.0-53.0) Mean Corpuscular Volume 94 fL (79-100) Mean Corpuscular Hemoglobin 32 pg (25-35) Mean Corpuscular Hemoglobin Concent 34 g/dL (31-37) Red Cell Distribution Width 14.7 % (11.5-14.5) Platelet Count 133 x10^3/uL (140-400) Neutrophils (%) (Auto) 85 % (31-73) Lymphocytes (%) (Auto) 7 % (24-48) Monocytes (%) (Auto) 6 % (0-9) Eosinophils (%) (Auto) 2 % (0-3) Basophils (%) (Auto) 0 % (0-3) Neutrophils # (Auto) 10.3 x10^3/uL (1.8-7.7) Lymphocytes # (Auto) 0.9 x10^3/uL (1.0-4.8) Monocytes # (Auto) 0.8 x10^3/uL (0.0-1.1) Eosinophils # (Auto) 0.2 x10^3/uL (0.0-0.7) Basophils # (Auto) 0.0 x10^3/uL (0.0-0.2) Sodium Level 133 mmol/L (136-145) Potassium Level 3.2 mmol/L (3.5-5.1) Chloride Level 101 mmol/L (98-107) Carbon Dioxide Level 25 mmol/L (21-32) Anion Gap 7 (6-14) Blood Urea Nitrogen 59 mg/dL (8-26) Creatinine 2.7 mg/dL (0.7-1.3) Estimated GFR (Cockcroft-Gault) 23.0 BUN/Creatinine Ratio 22 (6-20) Glucose Level 319 mg/dL (70-99) Calcium Level 7.1 mg/dL (8.5-10.1) Phosphorus Level 3.0 mg/dL (2.6-4.7) Magnesium Level 1.8 mg/dL (1.8-2.4) Total Bilirubin 0.3 mg/dL (0.2-1.0) Aspartate Amino Transf (AST/SGOT) 16 U/L (15-37) Alanine Aminotransferase (ALT/SGPT) 8 U/L (16-63) Alkaline Phosphatase 74 U/L (46-116) Total Protein 3.9 g/dL (6.4-8.2) Albumin 1.3 g/dL (3.4-5.0) Albumin/Globulin Ratio 0.5 (1.0-1.7) Test 06/19/19 08:00 O2 Saturation 97 % (92-99) Arterial Blood pH 7.42 (7.35-7.45) Arterial Blood pCO2 at Patient Temp 28 mmHg (35-46) Arterial Blood pO2 at Patient Temp 138 mmHg (65-108) Arterial Blood HCO3 18 mmol/L (21-28) Arterial Blood Base Excess -6 mmol/L (-3-3) FiO2 40 Medications Active Scripts Medications Dose Route/Sig Max Daily Dose Days Date Category Foltx Tablet (B12/Levomefolate Calcium/B-6) 1 Each Tablet 1 Each PO AFTRNOON 06/07/19 Reported Testosterone Cypionate 200 Mg/1 Ml Vial 1 Ml IM Q2WKS 06/07/19 Reported Novolog Mix 70-30 Flexpen Syrn (Insuln Asp Prt/Insulin Aspart) 100 Unit/1 Ml Insuln.pen 1 Unit SQ BIDACBL 06/07/19 Reported Lantus Solostar (Insulin Glargine,Hum.rec.anlog) 100 Unit/1 Ml Insuln.pen 30 Unit SQ QHS 06/07/19 Reported Nifedipine Er (Nifedipine) 60 Mg Tab.er.24 1 Tab PO DAILY 06/07/19 Reported Morphine Sulfate Er (Morphine Sulfate) 60 Mg Tablet.er 1 Tab PO BID 06/07/19 Reported Furosemide 40 Mg Tablet 40 Mg PO DAILY 06/07/19 Reported Finasteride 5 Mg Tablet 1 Tab PO DAILY 06/07/19 Reported Simvastatin 40 Mg Tablet 1 Tab PO QHS 06/07/19 Reported Metoprolol Succinate ( Xl ) (Metoprolol Succinate) 200 Mg Tab.er.24h 1 Tab PO DAILY 06/07/19 Reported Levothyroxine Sodium 175 Mcg Tablet 1 Tab PO DAILY 06/07/19 Reported Losartan-Hctz 100-12.5 Mg Tab (Losartan/Hydrochlorothiazide) 1 Each Tablet 1 Tab PO DAILY 06/07/19 Reported Comments CXR 06/19 reviewed no sig change Impression . 1. Acute Respiratory failure, multifactorial, includes septic shock, colonic ileus 2. septic shock 3. Erosive gastritis. 4. C-Diff 5. Coronary artery disease, status post coronary artery bypass grafting. 6, COLONIC ILEUS 7. abnormal cxr with atelectasis 8. SHOULDER ABSCESS 9. RENATA 10. severe PCM ID NOTE LUE abscess s/p 10 ml removal 06/13. group B strep -S/p Left shoulder open incision and drainage with arthrotomy, debridement of bone and bone cement, and joint irrigation 06/14 G B strep C. diff positive, 06/14 Plan . AC MODE SLOWLY WEAN PRESSORS ONCE OFF, WEAN SEDATION THEN NOT READY FOR TRIAL WILL CONTINUE SUPPORT HD PER NEPHRO ABG NOTED COMPENSATED IV FLUIDS PER NEPHRO PENG TRY ALBUMIN OVERALL PROGNOSIS IS GUARDED ANTI BX PER ID D/W RN CCT 30 MIN LITA INMAN MD Jun 19, 2019 11:21
[2019-06-19 12:11] LABS: ART BE ISTAT -12 mmol/L (0-3); ART GLUC ISTAT 208 mg/dL (70-99); ART HCO3 ISTAT 14 mmol/L (21-28); ART HCT ISTAT 35 % (37-52); ART HGB ISTAT 11.9 g/dL (14-18); ART ION CA ISTAT 0.95 mmol/L (1.13-1.32); ART K ISTAT 4.3 mmol/L (3.5-5.0); ART NA ISTAT 135 mmol/L (135-145); ART PCO2 ISTAT 27 mmHg (35-45); ART PH ISTAT 7.33 (7.35-7.45); ART PO2 ISTAT 237 mmHg (75-100); ART SAT O2 SAT 100 % (95-99); ART TCO2 ISTAT 15 mmol/L (21-32); CORRECTED PCO2 26 mmHg; CORRECTED PH 7.35; CORRECTED PO2 232 mmHg
[2019-06-19] MEDS ORDERED: ALBUMIN HUMAN 5% 500 ML IV ONE (12:30)
--- NOTE | 2019-06-19 13:04 | PDOC ---
Objective: Objective: D/w nurse - giving oral vanco through NGT, hasn't been hooked to suction, two small stools today, on two pressors, asks about tube feeds vs continuing TPN. Vital Signs: Vital Signs Date Time Temp Pulse Resp B/P (MAP) Pulse Ox O2 Delivery O2 Flow Rate FiO2 06/19/19 11:43 100 Ventilator 06/19/19 11:00 59 11 133/63 (86) 06/19/19 08:00 97.7 97.7 Labs: Laboratory Tests Test 06/18/19 18:05 06/18/19 23:19 06/19/19 06:34 06/19/19 06:35 Glucose (Fingerstick) 223 mg/dL 198 mg/dL 255 mg/dL White Blood Count 12.1 x10^3/uL Red Blood Count 3.06 x10^6/uL Hemoglobin 9.7 g/dL Hematocrit 28.8 % Mean Corpuscular Volume 94 fL Mean Corpuscular Hemoglobin 32 pg Mean Corpuscular Hemoglobin Concent 34 g/dL Red Cell Distribution Width 14.7 % Platelet Count 133 x10^3/uL Neutrophils (%) (Auto) 85 % Lymphocytes (%) (Auto) 7 % Monocytes (%) (Auto) 6 % Eosinophils (%) (Auto) 2 % Basophils (%) (Auto) 0 % Neutrophils # (Auto) 10.3 x10^3/uL Lymphocytes # (Auto) 0.9 x10^3/uL Monocytes # (Auto) 0.8 x10^3/uL Eosinophils # (Auto) 0.2 x10^3/uL Basophils # (Auto) 0.0 x10^3/uL Sodium Level 133 mmol/L Potassium Level 3.2 mmol/L Chloride Level 101 mmol/L Carbon Dioxide Level 25 mmol/L Anion Gap 7 Blood Urea Nitrogen 59 mg/dL Creatinine 2.7 mg/dL Estimated GFR (Cockcroft-Gault) 23.0 BUN/Creatinine Ratio 22 Glucose Level 319 mg/dL Calcium Level 7.1 mg/dL Phosphorus Level 3.0 mg/dL Magnesium Level 1.8 mg/dL Total Bilirubin 0.3 mg/dL Aspartate Amino Transf (AST/SGOT) 16 U/L Alanine Aminotransferase (ALT/SGPT) 8 U/L Alkaline Phosphatase 74 U/L Total Protein 3.9 g/dL Albumin 1.3 g/dL Albumin/Globulin Ratio 0.5 Test 06/19/19 08:00 O2 Saturation 97 % Arterial Blood pH 7.42 Arterial Blood pCO2 at Patient Temp 28 mmHg Arterial Blood pO2 at Patient Temp 138 mmHg Arterial Blood HCO3 18 mmol/L Arterial Blood Base Excess -6 mmol/L FiO2 40 Imaging: Abd/Scrotum US pending CXR 06/19 IMPRESSION: Right IJ double-lumen catheter is identified with the distal tip projecting over the cavoatrial junction. Or pneumothorax. However, distal portion of the nasogastric tube is not well visualized and follow-up radiograph may be of benefit if clinically warranted. Similar aeration of lungs compared to prior examination. PE: GEN: intubated LUNGS: vent HEART: RRR ABD: BS+, soft, hernia (reducible) NEURO/PSYCH: sedated A/P: LUE abscess - group B strep C Diff - on vanco per ID (through NGT) RENATA - has dialyzed Erosive esophagitis, duodenal ulcer - on PPI -- Continue same per GI - PPI, TPN. GERALD SMITH Jun 19, 2019 13:04
[2019-06-19] MEDS: TPN PER PHARMACY MC PRN (13:13)
--- NOTE | 2019-06-19 13:13 | NUR ---
Pharmacy TPN Dosing Note S: ROSLYN MOORE is a 78 year old M Currently receiving Central Continuous TPN started 06/15/19 B:Pertinent PMH: Duodenal ulcer, Ileus Height: 6 feet, 0 inches Weight: 111.7 kg Current diet: NPO LABS: Sodium: 1333 Potassium: 3.2 Chloride: 101 Calcium: 7.1 Corrected Calcium: 9.58 Magnesium: 1.8 CO2: 25 SCr: 2.7 Glucose: 198-319 Albumin: 0.9 AST: 16 ALT: 8 TPN FORMULA: TPN TYPE: Central Continuous AMINO ACIDS: 110 gm DEXTROSE: 195 gm LIPIDS: 20 gm SODIUM CHLORIDE: 90 mEq POTASSIUM CHLORIDE: 85 mEq POTASSIUM PHOSPHATE: 13.6 mmol MAGNESIUM: 10 mEq CALCIUM: 10 mEq INSULIN: 10 units MULTIPLE VITAMIN: 10 ml TRACE ELEMENTS: 1 ml TPN PLAN: -Serum potassium trending down, increase KCl to 85 mEq/day. -Serum glucose elevated, fasting level 319 today - add regular insulin 10 units to TPN. Remains on Lantus insulin 30 units/day. -BMP, mag, phos tomorrow. R: Continue TPN @ current rate and with above formula changes. Will monitor electrolytes, glucose, and tolerance to TPN. ALYSIA HENDRICKSON [facility], 06/19/19 [id number]
[2019-06-19] MEDS: HEPARIN for SUB-Q USE 5,000 UNIT/ML VIAL. SQ SCH (14:45)
--- NOTE | 2019-06-19 16:26 | NUR ---
SS following up with discharge planning. SS phoned and faxed referral to [facility] ([facility], ; fax [phone]. Pt is accepted at [facility]. SS will continue to follow for discharge planning.
--- NOTE | 2019-06-19 18:06 | RAD ---
TESTICULAR/SCROTUM History: Scrotal swelling Comparison: None. Technique: Multiple grayscale, color flow Doppler and Doppler spectral analysis images of the scrotum are obtained. Findings: Right testicle measures 3.9 x 2.4 x 2.2 cm. Right testicle demonstrates normal parenchymal echogenicity. The right epididymis is unremarkable. Left testicle measures 3.9 x 2.2 x 2.4 cm. Left testicle demonstrates normal parenchymal echogenicity. The left epididymis is unremarkable. There is no hydrocele or varicocele. Severe scrotal edema bilaterally. Doppler imaging demonstrates normal flow to both testicles, without evidence of torsion. IMPRESSION: 1. Severe scrotal edema. Recommend continued clinical follow-up. 2. Otherwise, unremarkable testicular ultrasound.. Electronically signed by: Finn Oneil DO (06/19/2019 6:03 PM) [id number]
[2019-06-19] MEDS: SIMVASTATIN 40 MG TABLET. PO SCH (20:46)
[2019-06-19] MEDS ORDERED: TOTAL PARENTERAL NUTRITION IV SCH ×11 (22:00)
[2019-06-19] MEDS ORDERED: AMINO ACID IV SCH ×11 (22:00)
[2019-06-19] MEDS ORDERED: DEXTROSE 70% IV SCH ×11 (22:00)
[2019-06-19] MEDS ORDERED: [UNRECOGNIZED DRUG - OTHER] IV SCH ×11 (22:00)
[2019-06-20] VITALS (24 sets, daily range): BP systolic 84–156; BP diastolic 47–80
[2019-06-20] MEDS: INSULIN LISPRO 300 UNITS/3 ML VIAL. SQ SCH ×4 (00:46→17:33)
[2019-06-20] MEDS: INSULIN GLARGINE SYRINGE. SQ SCH ×2 (00:46→21:27)
[2019-06-20] MEDS: HEPARIN for SUB-Q USE 5,000 UNIT/ML VIAL. SQ SCH ×3 (00:47→21:20)
[2019-06-20] MEDS: VASOPRESSIN 40 UNIT in IV DEXTROSE 5% 100ML 100 ML IV PRN (04:06)
[2019-06-20] MEDS: MIDAZOLAM 100mg/100ml NS BAG 100 ML IV PRN (04:07)
[2019-06-20] MEDS: LEVOTHYROXINE 175 MCG TABLET PO SCH (06:12)
[2019-06-20] MEDS: IV 1/2 NORMAL SALINE 1,000 ML IV SCH ×3 (06:56→21:48)
[2019-06-20 07:01] LABS: ALBUMIN 1.3 g/dL (3.4-5.0); ALBUMIN/GLOBULIN RATIO 0.5 (1.0-1.7); CALCIUM 7.1 mg/dL (8.5-10.1); CREATININE 3.1 mg/dL (0.7-1.3); GFR 19.6; MAGNESIUM 1.9 mg/dL (1.8-2.4); PHOSPHORUS 3.7 mg/dL (2.6-4.7); POTASSIUM 3.9 mmol/L (3.5-5.1); TOTAL BILIRUBIN 0.3 mg/dL (0.2-1.0); TOTAL PROTEIN 3.7 g/dL (6.4-8.2)
[2019-06-20 07:05] LABS: BASO % 0 % (0-3); EOS # 0.2 x10^3/uL (0.0-0.7); EOS % 2 % (0-3); HEMATOCRIT 25.8 % (39.0-53.0); HEMOGLOBIN 8.5 g/dL (13.0-17.5); LYMPH # 0.9 x10^3/uL (1.0-4.8); LYMPH % 9 % (24-48); MEAN CORPUSCULAR HEMOGLOBIN 31 pg (25-35); MEAN CORPUSCULAR HGB CONC 33 g/dL (31-37); MEAN CORPUSCULAR VOLUME 95 fL (79-100); MONO # 0.6 x10^3/uL (0.0-1.1); MONO % 6 % (0-9); NEUT # 8.1 x10^3/uL (1.8-7.7); NEUT % 82 % (31-73); PLATELET COUNT 120 x10^3/uL (140-400); RED BLOOD COUNT 2.71 x10^6/uL (4.30-5.70); WHITE BLOOD COUNT 9.9 x10^3/uL (4.0-11.0)
[2019-06-20] MEDS ORDERED: IV NORMAL SALINE 1000ML BAG 1,000 ML IV PRN ×2 (07:23)
[2019-06-20] MEDS ORDERED: DIALYSIS PATIENT. MC PRN (07:30)
[2019-06-20] MEDS ORDERED: ALBUMIN HUMAN 25% 200 ML IV PRN (07:30)
[2019-06-20] MEDS ORDERED: diphenhydrAMINE 50 MG/ML VIAL IV PRN ×2 (07:30)
--- NOTE | 2019-06-20 07:48 | PDOC ---
Infectious Disease Note Subjective Subjective Remains intubated FiO2 up to 40% PEEP 7 Sedated Pressors No fevers last 24 hours + diarrhea TPN ROS ROS no n/v/pain Vital Sign Vital Signs Vital Signs Date Time Temp Pulse Resp B/P (MAP) Pulse Ox O2 Delivery O2 Flow Rate FiO2 06/20/19 06:07 12 100 06/20/19 06:00 65 93/48 (63) Ventilator 06/20/19 00:00 96.9 96.9 Physical Exam PHYSICAL EXAM GENERAL: Orally intubated and sedated HEENT: Pupils are equal, NGT, ETT NECK: Supple LUNGS: Course HEART: S1, S2. ABDOMEN: Obese, soft + BS, + rectal tube : Bledsoe EXTREMITIES: Generalized edema. Left shoulder incison well-approx/thiago. SKIN: Without signs of rash NEUROLOGIC: Sedated Temp HDC (06/15) [facility] PIV Labs Lab Laboratory Tests Test 06/19/19 08:00 06/19/19 12:22 06/19/19 17:48 06/20/19 00:40 O2 Saturation 97 % (92-99) Arterial Blood pH 7.42 (7.35-7.45) Arterial Blood pCO2 at Patient Temp 28 mmHg (35-46) Arterial Blood pO2 at Patient Temp 138 mmHg (65-108) Arterial Blood HCO3 18 mmol/L (21-28) Arterial Blood Base Excess -6 mmol/L (-3-3) FiO2 40 Glucose (Fingerstick) 287 mg/dL (70-99) 277 mg/dL (70-99) 281 mg/dL (70-99) Test 06/20/19 06:16 06/20/19 06:30 Glucose (Fingerstick) 225 mg/dL (70-99) White Blood Count 9.9 x10^3/uL (4.0-11.0) Red Blood Count 2.71 x10^6/uL (4.30-5.70) Hemoglobin 8.5 g/dL (13.0-17.5) Hematocrit 25.8 % (39.0-53.0) Mean Corpuscular Volume 95 fL (79-100) Mean Corpuscular Hemoglobin 31 pg (25-35) Mean Corpuscular Hemoglobin Concent 33 g/dL (31-37) Red Cell Distribution Width 15.0 % (11.5-14.5) Platelet Count 120 x10^3/uL (140-400) Neutrophils (%) (Auto) 82 % (31-73) Lymphocytes (%) (Auto) 9 % (24-48) Monocytes (%) (Auto) 6 % (0-9) Eosinophils (%) (Auto) 2 % (0-3) Basophils (%) (Auto) 0 % (0-3) Neutrophils # (Auto) 8.1 x10^3/uL (1.8-7.7) Lymphocytes # (Auto) 0.9 x10^3/uL (1.0-4.8) Monocytes # (Auto) 0.6 x10^3/uL (0.0-1.1) Eosinophils # (Auto) 0.2 x10^3/uL (0.0-0.7) Basophils # (Auto) 0.0 x10^3/uL (0.0-0.2) Sodium Level 131 mmol/L (136-145) Potassium Level 3.9 mmol/L (3.5-5.1) Chloride Level 101 mmol/L (98-107) Carbon Dioxide Level 24 mmol/L (21-32) Anion Gap 6 (6-14) Blood Urea Nitrogen 69 mg/dL (8-26) Creatinine 3.1 mg/dL (0.7-1.3) Estimated GFR (Cockcroft-Gault) 19.6 BUN/Creatinine Ratio 22 (6-20) Glucose Level 254 mg/dL (70-99) Calcium Level 7.1 mg/dL (8.5-10.1) Phosphorus Level 3.7 mg/dL (2.6-4.7) Magnesium Level 1.9 mg/dL (1.8-2.4) Total Bilirubin 0.3 mg/dL (0.2-1.0) Aspartate Amino Transf (AST/SGOT) 16 U/L (15-37) Alanine Aminotransferase (ALT/SGPT) 7 U/L (16-63) Alkaline Phosphatase 59 U/L (46-116) Total Protein 3.7 g/dL (6.4-8.2) Albumin 1.3 g/dL (3.4-5.0) Albumin/Globulin Ratio 0.5 (1.0-1.7) Micro Microbiology 06/14/19 AFB Specimen Processing Tissue - Final, Resulted 8/29/19 Acid Fast Bacilli Culture, Resulted Pending 06/14/19 Gram Stain - Final, Resulted 06/14/19 Fungal Culture, Resulted Pending 06/14/19 Fungal Culture Result 1, Resulted Pending 06/13/19 Blood Culture - Preliminary, Resulted NO GROWTH AFTER 4 DAYS Objective Assessment LUE abscess s/p 10 ml removal 06/13. group B strep -S/p Left shoulder open incision and drainage with arthrotomy, debridement of bone and bone cement, and joint irrigation 06/14 G B strep C. diff positive, 06/14 PCN allergy - Hives - believes has tolerated Cephalosporins per his RENATA requiring HD Hypotension - currently Levophed Post op resp failure - intubated - Pulm following Leukocytosis - worse but s/p Dexamethasone 06/14 preop and post op reactive ? 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
--- NOTE | 2019-06-20 07:48 | RAD ---
PORTABLE CHEST 1V 06/20/2019 9:00 AM INDICATION: Respiratory failure COMPARISON: 06/19/2019 TECHNIQUE: Portable frontal view of the chest is provided. FINDINGS: The cardiomediastinal silhouette is similar in appearance. Right IJ double-lumen catheter, nasogastric tube, endotracheal tube and left IJ central venous catheter in similar position. Left shoulder hardware is partially profiled. There is increase in small right pleural effusion. There is mild pulmonary vascular congestion which appears stable. No pneumothorax. IMPRESSION: Increase in small right pleural effusion with adjacent compressive atelectasis versus infiltrate. Similar position of support lines and tubes. Electronically signed by: Christina Borrero MD (06/20/2019 7:46 AM) [facility]
--- NOTE | 2019-06-20 08:30 | NUR ---
SS following up with discharge planning. Pt accepted at [facility]. SS discussed with pt's spouse, Pat. Pt's spouse reported understanding for LTAC placement if needed but would like to discuss further with physician. SS will continue to follow for discharge planning.
[2019-06-20] MEDS: FINASTERIDE 5 MG TABLET. PO SCH (09:00)
[2019-06-20 09:09] LABS: BASE EXCESS ABG 0 mmol/L (-3-3); HCO3 ABG 24 mmol/L (21-28); PCO2 ABG 39 mmHg (35-46); PO2 ABG 111 mmHg (65-108); SAT O2 ABG 97 % (92-99)
[2019-06-20 09:16] LABS: FIO2 ABG 40
--- NOTE | 2019-06-20 09:22 | PDOC ---
SUBJECTIVE ROS stable , Intubated, on vasopressin Seen on HD OBJECTIVE Vital Signs Vital Signs Date Time Temp Pulse Resp B/P (MAP) Pulse Ox O2 Delivery O2 Flow Rate FiO2 06/20/19 09:00 73 19 104/59 (74) 100 Ventilator 06/20/19 08:00 96.9 96.9 I & 0 Intake and Output 06/20/19 07:00 Intake Total 4730 ml Output Total 165 ml Balance 4565 ml IV Total 4730 ml Output Urine Total 165 ml # Bowel Movements 4 PHYSICAL EXAM Physical Exam GENERAL: Orally intubated and sedated HEENT: NGT, ETT NECK: Supple LUNGS: CTA ant HEART: S1, S2. ABDOMEN: soft + BS, + rectal tube : Bledsoe EXTREMITIES: Edema 2+ has a right hand deformity. His left shoulder is dressed. 2 plus edema. Left heel protector. SKIN: No rash. NEUROLOGIC: Sedated Temp HDC (06/15) DIAGNOSIS/ASSESSMENT Assessment & Plan RENATA-ATN requiring HD, seen on dialysis, tolerating well, UF as tolerated -using albumin (severe Hypoalbuminemia) Discussed with Felicia Metabolic acidosis- resolved Hyponatremia- Normal after corrected for glucose Hypokalemia- K normal CKD stage 3- Cr Prob 1.5 HypoAlbuminemia - severe Hypotension- On vasopressin BP meds held Urinary retention- Flomax on Hold due to Low BP LUE abscess s/p Left shoulder open incision and drainage with arthrotomy, debridement of bone and bone cement, and joint irrigation 06/14 group B strep Post op resp failure - intubated - Pulm following C. diff positive, 06/14 Erosive Gastritis s/p EGD 06/08 Anemia- decreased CAD - Cardiology following Discussed with RN COMMENT/RELEVANT DATA Meds Current Medications Medications (Trade) Dose Ordered Sig/Lauren Start Time Stop Time Status Last Admin Dose Admin Albumin Human 200 ml @ 200 mls/hr 1X PRN PRN 06/20/19 07:30 06/20/19 13:29 06/20/19 08:57 200 MLS/HR Amino Acids/ Electrolytes/ Dextrose 1,000 ml @ 80 mls/hr [id number] 06/14/19 10:30 06/15/19 21:59 DC 06/15/19 16:23 80 MLS/HR Bisacodyl (Dulcolax Supp) 10 mg 1X ONCE 06/07/19 17:45 8/22/19 17:46 DC 06/07/19 21:40 10 MG Bisacodyl (Dulcolax Tab) 5 mg PRN DAILY PRN 06/11/19 15:45 Bupivacaine HCl/ Epinephrine Bitart (Sensorcaine-Epi 0.25%-1:[id number] Mpf) 30 ml 1X ONCE 06/14/19 17:45 06/14/19 17:46 Cancel Ceftriaxone Sodium (Rocephin) 2 gm Q24H 06/19/19 09:00 06/19/19 08:50 2 GM Clindamycin Phosphate 50 ml @ As Directed STK-MED ONCE 06/14/19 18:07 06/14/19 18:07 DC Daptomycin 560 mg/ Sodium Chloride 50 ml @ 100 mls/hr Q48H 06/15/19 14:00 06/18/19 07:56 DC 06/17/19 14:29 100 MLS/HR Dexamethasone Sodium Phosphate (Decadron) 4 mg STK-MED ONCE 06/14/19 16:17 06/14/19 16:17 DC Dextrose 250 ml PRN Q15MIN PRN 06/09/19 11:45 06/09/19 15:19 DC Dextrose (Dextrose 50%-Water Syringe) 12.5 gm PRN Q15MIN PRN 06/09/19 11:45 Diphenhydramine HCl (Benadryl) 25 mg 1X PRN PRN 06/20/19 07:30 06/21/19 07:29 Ephedrine Sulfate (ePHEDrine PF IN SALINE SYRINGE) 50 mg STK-MED ONCE 06/14/19 19:21 06/14/19 19:21 DC Famotidine (Pepcid Vial) 20 mg STK-MED ONCE 06/14/19 16:17 06/14/19 16:17 DC Fentanyl Citrate 30 ml @ 0 mls/hr CONT PRN 06/14/19 20:00 06/20/19 04:10 2.5 MLS/HR Fentanyl Citrate (Fentanyl 2ml Vial) 100 mcg STK-MED ONCE 06/14/19 16:17 06/14/19 16:17 DC Finasteride (Proscar) 5 mg DAILY 06/12/19 12:00 06/13/19 09:39 DC Furosemide (Lasix) 40 mg DAILY 06/08/19 12:00 06/14/19 13:01 DC 06/12/19 08:36 40 MG Heparin Sodium (Porcine) (Heparin Sodium) 5,000 unit Q12HR 06/19/19 14:00 06/20/19 00:47 5,000 UNIT Hydromorphone HCl (Dilaudid) 2 mg PRN Q3HRS PRN 06/07/19 22:00 06/14/19 23:55 DC 06/14/19 12:39 2 MG Info (PHARMACY MONITORING -- do not chart) 1 each PRN DAILY PRN 06/20/19 07:30 Info (Tpn Per Pharmacy) 1 each PRN DAILY PRN 06/15/19 11:30 06/19/19 13:13 1 EACH Insulin Glargine (Lantus Syringe) 30 unit QHS 06/08/19 21:00 06/20/19 00:46 30 UNIT Insulin Human Lispro (HumaLOG) 0-9 UNITS Q6HRS 06/16/19 12:00 06/20/19 06:22 5 UNITS Ketamine HCl (Ketamine) 50 mg STK-MED ONCE 06/14/19 17:03 06/14/19 17:03 DC Levothyroxine Sodium (Synthroid) 175 mcg DAILY06 06/08/19 12:00 06/20/19 06:22 175 MCG Lidocaine HCl (Lidocaine Pf 2% Vial) 5 ml STK-MED ONCE 06/14/19 16:17 06/14/19 16:17 DC Lidocaine/Sodium Bicarbonate (Buffered Lidocaine 1%) 3 ml 1X ONCE 06/15/19 11:00 06/15/19 11:01 DC Lorazepam (Ativan) 0.5 mg PRN Q6HRS PRN 06/07/19 18:00 06/07/19 18:14 DC Losartan Potassium (Cozaar) 100 mg DAILY 06/08/19 12:00 06/14/19 13:01 DC 06/12/19 08:36 100 MG Magnesium Sulfate 50 ml @ 25 mls/hr 1X ONCE 06/16/19 08:30 06/16/19 10:29 DC 06/16/19 08:27 25 MLS/HR Meropenem 1 gm/ Sodium Chloride 100 ml @ 200 mls/hr DAILY 06/15/19 09:00 06/19/19 07:22 DC 06/18/19 10:55 200 MLS/HR Methylnaltrexone [place] (Relistor) 6 mg 1X ONCE 06/14/19 14:00 06/14/19 14:01 DC 06/14/19 14:15 6 MG Metoprolol Succinate (Toprol Xl) 200 mg DAILY 06/08/19 12:00 06/14/19 13:01 DC 06/12/19 08:36 200 MG Metronidazole 100 ml @ 100 mls/hr Q8HRS 06/15/19 17:30 06/19/19 07:22 DC 06/19/19 06:24 100 MLS/HR Midazolam HCl 100 ml @ 0 mls/hr CONT PRN 06/15/19 13:00 06/20/19 04:10 7 MLS/HR Morphine Sulfate (Ms Contin) 60 mg BID 06/08/19 12:00 06/19/19 08:50 60 MG Nicotine (Nicoderm Cq 21mg) 1 patch PRN DAILY PRN 06/07/19 18:00 06/07/19 18:14 DC Nifedipine (Procardia Xl) 60 mg DAILY 06/08/19 12:00 06/14/19 13:01 DC 06/12/19 08:36 60 MG Non-Formulary Medication (Insuln Asp Prt/ Insulin Aspart (Novolog Mix 70-30 Flexpen Syrn)) 1 unit BIDACBL 06/08/19 11:30 06/08/19 19:34 DC Norepinephrine Bitartrate 250 ml @ 17.398 mls/ hr CONT PRN 06/14/19 14:30 06/18/19 17:55 34.796 MLS/HR Ondansetron HCl (Zofran) 4 mg STK-MED ONCE 06/14/19 16:17 06/14/19 16:17 DC Pantoprazole Sodium (PROTONIX VIAL for IV PUSH) 40 mg DAILYAC 06/14/19 07:30 06/19/19 08:50 40 MG Pantoprazole Sodium (Protonix) 40 mg DAILYAC 06/12/19 07:30 06/13/19 13:27 DC 06/12/19 08:36 40 MG Phenylephrine HCl (PHENYLEPHRINE in 0.9% NACL PF) 1 mg STK-MED ONCE 06/14/19 17:03 06/14/19 17:04 DC Polyethylene Glycol (miraLAX PACKET) 17 gm PRN DAILY PRN 06/11/19 15:45 Propofol 100 ml @ 0 mls/hr CONT PRN 06/14/19 20:00 06/15/19 10:33 8.351 MLS/HR Ringer's Solution 1,000 ml @ 75 mls/hr [id number] 06/08/19 09:15 06/09/19 08:01 DC 06/08/19 14:01 75 MLS/HR Rocuronium [place] (Zemuron) 50 mg STK-MED ONCE 06/14/19 16:32 06/14/19 16:32 DC Simvastatin (Zocor) 40 mg QHS 06/08/19 21:00 06/19/19 20:47 40 MG Sodium Bicarbonate 50 meq/Sodium Chloride 1,050 ml @ 125 mls/hr Q8H24M 06/15/19 10:15 06/16/19 18:21 DC 06/16/19 09:26 125 MLS/HR Sodium Chloride 1,000 ml @ 400 mls/hr Q2H30M PRN 06/20/19 07:23 06/20/19 19:22 Sodium Chloride 90 meq/Potassium Chloride 50 meq/ Magnesium Sulfate 10 meq/Calcium Gluconate 10 meq/ Multivitamins 10 ml/Chromium/ Copper/Manganese/ Seleni/Zn 1 ml/ Total Parenteral Nutrition/Amino Acids/Dextrose 1,512 ml @ 63 mls/hr TPN CONT 06/15/19 22:00 06/16/19 21:59 DC 06/16/19 00:19 63 MLS/HR Sodium Chloride 90 meq/Potassium Chloride 50 meq/ Magnesium Sulfate 10 meq/Calcium Gluconate 10 meq/ Multivitamins 10 ml/Chromium/ Copper/Manganese/ Seleni/Zn 1 ml/ Total Parenteral Nutrition/Amino Acids/Dextrose/ Fat Emulsion Intravenous 1,512 ml @ 63 mls/hr TPN CONT 06/16/19 22:00 06/17/19 21:59 DC 06/16/19 22:43 63 MLS/HR Sodium Chloride 90 meq/Potassium Chloride 50 meq/ Potassium Phosphate 13.6 mmol/Magnesium Sulfate 10 meq/ Calcium Gluconate 10 meq/ Multivitamins 10 ml/Chromium/ Copper/Manganese/ Seleni/Zn 1 ml/ Total Parenteral Nutrition/Amino Acids/Dextrose/ Fat Emulsion Intravenous 1,512 ml @ 63 mls/hr TPN CONT 06/17/19 22:00 06/18/19 21:59 DC 06/17/19 21:48 63 MLS/HR Sodium Chloride 90 meq/Potassium Chloride 70 meq/ Potassium Phosphate 13.6 mmol/Magnesium Sulfate 10 meq/ Calcium Gluconate 10 meq/ Multivitamins 10 ml/Chromium/ Copper/Manganese/ Seleni/Zn 1 ml/ Total Parenteral Nutrition/Amino Acids/Dextrose/ Fat Emulsion Intravenous 1,512 ml @ 63 mls/hr TPN CONT 06/18/19 22:00 06/19/19 21:59 DC 06/18/19 22:59 63 MLS/HR Sodium Chloride 90 meq/Potassium Chloride 85 meq/ Potassium Phosphate 13.6 mmol/Magnesium Sulfate 10 meq/ Calcium Gluconate 10 meq/ Multivitamins 10 ml/Chromium/ Copper/Manganese/ Seleni/Zn 1 ml/ Insulin Human Regular 10 unit/ Total Parenteral Nutrition/Amino Acids/Dextrose/ Fat Emuls... 1,512 ml @ 63 mls/hr TPN CONT 06/19/19 22:00 06/20/19 21:59 06/19/19 22:27 63 MLS/HR Succinylcholine Chloride (Anectine) 200 mg STK-MED ONCE 06/14/19 16:17 06/14/19 16:17 DC Tamsulosin HCl (Flomax) 0.4 mg QHS 06/12/19 21:00 06/14/19 13:01 DC 06/12/19 21:26 0.4 MG Testosterone Cypionate (Depo-Testosterone) 200 mg Q2WKS 06/22/19 09:00 Vancomycin HCl (Vancomycin Oral Solution) 125 mg [id number] 06/16/19 09:00 06/19/19 20:47 125 MG Vasopressin 40 unit/Dextrose 102 ml @ 6 mls/hr CONT PRN 06/15/19 14:30 06/20/19 04:10 6 MLS/HR Vitamin B Complex (Bud B) 1 tab DAILY 06/08/19 12:00 06/19/19 08:50 1 TAB Lab Laboratory Tests Test 06/19/19 12:22 06/19/19 17:48 06/20/19 00:40 06/20/19 06:16 Glucose (Fingerstick) 287 mg/dL (70-99) 277 mg/dL (70-99) 281 mg/dL (70-99) 225 mg/dL (70-99) Test 06/20/19 06:30 06/20/19 09:05 White Blood Count 9.9 x10^3/uL (4.0-11.0) Red Blood Count 2.71 x10^6/uL (4.30-5.70) Hemoglobin 8.5 g/dL (13.0-17.5) Hematocrit 25.8 % (39.0-53.0) Mean Corpuscular Volume 95 fL (79-100) Mean Corpuscular Hemoglobin 31 pg (25-35) Mean Corpuscular Hemoglobin Concent 33 g/dL (31-37) Red Cell Distribution Width 15.0 % (11.5-14.5) Platelet Count 120 x10^3/uL (140-400) Neutrophils (%) (Auto) 82 % (31-73) Lymphocytes (%) (Auto) 9 % (24-48) Monocytes (%) (Auto) 6 % (0-9) Eosinophils (%) (Auto) 2 % (0-3) Basophils (%) (Auto) 0 % (0-3) Neutrophils # (Auto) 8.1 x10^3/uL (1.8-7.7) Lymphocytes # (Auto) 0.9 x10^3/uL (1.0-4.8) Monocytes # (Auto) 0.6 x10^3/uL (0.0-1.1) Eosinophils # (Auto) 0.2 x10^3/uL (0.0-0.7) Basophils # (Auto) 0.0 x10^3/uL (0.0-0.2) Sodium Level 131 mmol/L (136-145) Potassium Level 3.9 mmol/L (3.5-5.1) Chloride Level 101 mmol/L (98-107) Carbon Dioxide Level 24 mmol/L (21-32) Anion Gap 6 (6-14) Blood Urea Nitrogen 69 mg/dL (8-26) Creatinine 3.1 mg/dL (0.7-1.3) Estimated GFR (Cockcroft-Gault) 19.6 BUN/Creatinine Ratio 22 (6-20) Glucose Level 254 mg/dL (70-99) Calcium Level 7.1 mg/dL (8.5-10.1) Phosphorus Level 3.7 mg/dL (2.6-4.7) Magnesium Level 1.9 mg/dL (1.8-2.4) Total Bilirubin 0.3 mg/dL (0.2-1.0) Aspartate Amino Transf (AST/SGOT) 16 U/L (15-37) Alanine Aminotransferase (ALT/SGPT) 7 U/L (16-63) Alkaline Phosphatase 59 U/L (46-116) Total Protein 3.7 g/dL (6.4-8.2) Albumin 1.3 g/dL (3.4-5.0) Albumin/Globulin Ratio 0.5 (1.0-1.7) O2 Saturation 97 % (92-99) Arterial Blood pH 7.41 (7.35-7.45) Arterial Blood pCO2 at Patient Temp 39 mmHg (35-46) Arterial Blood pO2 at Patient Temp 111 mmHg (65-108) Arterial Blood HCO3 24 mmol/L (21-28) Arterial Blood Base Excess 0 mmol/L (-3-3) FiO2 40 Results All relevant outside records, renal labs, imaging studies, telemetry/EKG's were reviewed. GUNNAR IGLESIAS MD Jun 20, 2019 09:22
[2019-06-20] MEDS: VANCOMYCIN 125 MG/2.5 ML ORAL SOLUTION. PO SCH ×3 (11:17→21:29)
[2019-06-20] MEDS: TPN PER PHARMACY MC PRN ×3 (11:23→11:33)
[2019-06-20] MEDS: PANTOPRAZOLE IV PUSH 40 MG VIAL. IVP SCH (11:31)
[2019-06-20] MEDS: MORPHINE ER 30 MG TABLET.ER PO SCH ×2 (11:31→21:00)
[2019-06-20] MEDS: cefTRIAXone IV Push 2 GM VIAL. IVP SCH (11:32)
[2019-06-20] MEDS: VITAMIN B COMPLEX TABLET. PO SCH (11:32)
--- NOTE | 2019-06-20 11:32 | PDOC ---
Objective: Objective: D/w nurse - several stools yesterday and overnight, plans for palliative d iscussion - might need CRRT, off sedation. Vital Signs: Vital Signs Date Time Temp Pulse Resp B/P (MAP) Pulse Ox O2 Delivery O2 Flow Rate FiO2 06/20/19 10:00 78 22 123/57 (79) 100 Ventilator 06/20/19 08:00 96.9 96.9 Labs: Laboratory Tests Test 06/19/19 12:22 06/19/19 17:48 06/20/19 00:40 06/20/19 06:16 Glucose (Fingerstick) 287 mg/dL 277 mg/dL 281 mg/dL 225 mg/dL Test 06/20/19 06:30 06/20/19 09:05 White Blood Count 9.9 x10^3/uL Red Blood Count 2.71 x10^6/uL Hemoglobin 8.5 g/dL Hematocrit 25.8 % Mean Corpuscular Volume 95 fL Mean Corpuscular Hemoglobin 31 pg Mean Corpuscular Hemoglobin Concent 33 g/dL Red Cell Distribution Width 15.0 % Platelet Count 120 x10^3/uL Neutrophils (%) (Auto) 82 % Lymphocytes (%) (Auto) 9 % Monocytes (%) (Auto) 6 % Eosinophils (%) (Auto) 2 % Basophils (%) (Auto) 0 % Neutrophils # (Auto) 8.1 x10^3/uL Lymphocytes # (Auto) 0.9 x10^3/uL Monocytes # (Auto) 0.6 x10^3/uL Eosinophils # (Auto) 0.2 x10^3/uL Basophils # (Auto) 0.0 x10^3/uL Sodium Level 131 mmol/L Potassium Level 3.9 mmol/L Chloride Level 101 mmol/L Carbon Dioxide Level 24 mmol/L Anion Gap 6 Blood Urea Nitrogen 69 mg/dL Creatinine 3.1 mg/dL Estimated GFR (Cockcroft-Gault) 19.6 BUN/Creatinine Ratio 22 Glucose Level 254 mg/dL Calcium Level 7.1 mg/dL Phosphorus Level 3.7 mg/dL Magnesium Level 1.9 mg/dL Total Bilirubin 0.3 mg/dL Aspartate Amino Transf (AST/SGOT) 16 U/L Alanine Aminotransferase (ALT/SGPT) 7 U/L Alkaline Phosphatase 59 U/L Total Protein 3.7 g/dL Albumin 1.3 g/dL Albumin/Globulin Ratio 0.5 O2 Saturation 97 % Arterial Blood pH 7.41 Arterial Blood pCO2 at Patient Temp 39 mmHg Arterial Blood pO2 at Patient Temp 111 mmHg Arterial Blood HCO3 24 mmol/L Arterial Blood Base Excess 0 mmol/L FiO2 40 Imaging: CXR 06/20/19 IMPRESSION: Increase in small right pleural effusion with adjacent compressive atelectasis versus infiltrate. Similar position of support lines and tubes. Scrotal US 06/19 IMPRESSION: 1. Severe scrotal edema. Recommend continued clinical follow-up. 2. Otherwise, unremarkable testicular ultrasound.. PE: GEN: intubated, dialyzing LUNGS: vent HEART: RRR ABD: soft NEURO/PSYCH: off sedation, yawing on vent A/P: LUE abscess - group B strep Resp failure - on TPN C Diff - on vanco (NGT) RENATA - on HD Erosive esophagitis, duodenal ulcer - on PPI -- Await palliative discussion. GERALD SMITH Jun 20, 2019 11:32
--- NOTE | 2019-06-20 15:44 | PDOC2 ---
PALLIATIVE CARE Palliative Care Note Palliative Care Consult requested by Dr. Hancock to address goals of care. Medical Assessment per medical record; ASSESSMENT: 1. Left upper extremity abscess, status post aspiration of 10 mL on 06/13 which grew group B streptococcus. He is status post left shoulder open incision and drainage with arthrotomy, debridement of bone and bone cement and joint irrigation on 06/14. 2. Clostridium difficile colitis. 3. PENICILLIN ALLERGY, HIVES. He has tolerated chemotherapy ____. 4. Hypertension, currently on vasopressin and Levophed. 5. Postoperative respiratory failure, intubated and mechanically ventilated. 6. Leukocytosis, status post dexamethasone began postoperatively. 7. [place] syndrome for which GI is following. 8. Coronary artery disease. The patient has group B sepsis, erosive gastritis, status post EGD and intervention had a Bledsoe catheter in place. He has fracture of the 2 superior mediastinal wires. Patient intubated. On Fentanyl gtt, Vasopressin, TPN, off Versed C-diff +, Dialysis completed today. Considering CRRT vs daily dialysis. Met with Pat. Attempted to get son Rangel on phone. Unable to reach at meeting time. Reviewed above medical condition. 58 years, Retired . Jacy: "Believer" does not attend orthodox. Daily Activity; walked with walker, used W/C to go to Dr. states patient would not want to be kept alive as "vegetable on a machine" Discussed Code Status; would like patient to be DNR but would need to check with son before final decision. Discussed options for care; Continue current aggressive care including dialysis (CRRT vs daily dialysis) [facility] for continued aggressive care. Rangel returned call and was included on conversation through conference line Above reviewed. Agrees with DNR decision. Would want full aggressive care including tracheostomy if needed. Knows his father would not want to live on machines as a "vegetable" Understands he likely will need ongoing care with antibiotics and dialysis. Will continue to have further discussions. Plan: DNR per and son request. Continue current treatment plan with more discussion as needed. Family Contacts; Purnima () [phone] Son: Rangel; [phone] NIKKO NEWBY Jun 20, 2019 15:44
--- NOTE | 2019-06-20 15:56 | NUR ---
Wound care: Patient seen per follow up wound care regarding multiple wounds. All wounds cleansed, assessed, and then measured and pictured if they still needed to be. Recommendations for Aquacel Ag, ABD pad and kerlix to left lower leg and left heel, as they are draining and very macerated. Patient is edematous throughout. The the DTI wounds on the left lateral lower leg and the left medial foot recommendations for ABD pad and kerlix. Dressings applied. Patient also has a stage III with DTI on the coccyx. Recommendations for contact layer and foam dressing. Dressings applied. Dressing change instructions left in room. Patient repositioned and bilateral lower legs elevated. Will follow patient regarding wound care.
[2019-06-20] MEDS ORDERED: fentaNYL PF VIAL 100 MCG/2 ML VIAL IV PRN (16:15)
[2019-06-20] MEDS: DEXMEDETOMIDINE 400 MCG in IV NORMAL SALINE 100ML 96 ML IV PRN (17:01)
[2019-06-20] MEDS ORDERED: POTASSIUM CHLORIDE IV SCH (17:30)
[2019-06-20] MEDS ORDERED: DIALYSIS IV SCH (17:30)
--- NOTE | 2019-06-20 18:14 | PDOC ---
PULMONARY PROGRESS NOTES Subjective Sleepy, off versed and off levophed PT ON AC MODE FIO2 DOWN TO 40 % STILL on vasopressin Vitals Vital Signs Date Time Temp Pulse Resp B/P (MAP) Pulse Ox O2 Delivery O2 Flow Rate FiO2 06/20/19 16:00 Mechanical Ventilator 06/20/19 15:50 99 06/20/19 15:00 80 15 154/73 (100) 06/20/19 12:00 97.0 97.0 Lungs: Other (decrease bases) Cardiovascular: S1, S2 Abdomen: Other (distended) Extremities: Other (2+edema, scrotal edema) Skin: Warm Labs Laboratory Tests Test 06/18/19 23:19 06/19/19 06:34 06/19/19 06:35 06/19/19 08:00 Glucose (Fingerstick) 198 mg/dL (70-99) 255 mg/dL (70-99) White Blood Count 12.1 x10^3/uL (4.0-11.0) Red Blood Count 3.06 x10^6/uL (4.30-5.70) Hemoglobin 9.7 g/dL (13.0-17.5) Hematocrit 28.8 % (39.0-53.0) Mean Corpuscular Volume 94 fL (79-100) Mean Corpuscular Hemoglobin 32 pg (25-35) Mean Corpuscular Hemoglobin Concent 34 g/dL (31-37) Red Cell Distribution Width 14.7 % (11.5-14.5) Platelet Count 133 x10^3/uL (140-400) Neutrophils (%) (Auto) 85 % (31-73) Lymphocytes (%) (Auto) 7 % (24-48) Monocytes (%) (Auto) 6 % (0-9) Eosinophils (%) (Auto) 2 % (0-3) Basophils (%) (Auto) 0 % (0-3) Neutrophils # (Auto) 10.3 x10^3/uL (1.8-7.7) Lymphocytes # (Auto) 0.9 x10^3/uL (1.0-4.8) Monocytes # (Auto) 0.8 x10^3/uL (0.0-1.1) Eosinophils # (Auto) 0.2 x10^3/uL (0.0-0.7) Basophils # (Auto) 0.0 x10^3/uL (0.0-0.2) Sodium Level 133 mmol/L (136-145) Potassium Level 3.2 mmol/L (3.5-5.1) Chloride Level 101 mmol/L (98-107) Carbon Dioxide Level 25 mmol/L (21-32) Anion Gap 7 (6-14) Blood Urea Nitrogen 59 mg/dL (8-26) Creatinine 2.7 mg/dL (0.7-1.3) Estimated GFR (Cockcroft-Gault) 23.0 BUN/Creatinine Ratio 22 (6-20) Glucose Level 319 mg/dL (70-99) Calcium Level 7.1 mg/dL (8.5-10.1) Phosphorus Level 3.0 mg/dL (2.6-4.7) Magnesium Level 1.8 mg/dL (1.8-2.4) Total Bilirubin 0.3 mg/dL (0.2-1.0) Aspartate Amino Transf (AST/SGOT) 16 U/L (15-37) Alanine Aminotransferase (ALT/SGPT) 8 U/L (16-63) Alkaline Phosphatase 74 U/L (46-116) Total Protein 3.9 g/dL (6.4-8.2) Albumin 1.3 g/dL (3.4-5.0) Albumin/Globulin Ratio 0.5 (1.0-1.7) O2 Saturation 97 % (92-99) Arterial Blood pH 7.42 (7.35-7.45) Arterial Blood pCO2 at Patient Temp 28 mmHg (35-46) Arterial Blood pO2 at Patient Temp 138 mmHg (65-108) Arterial Blood HCO3 18 mmol/L (21-28) Arterial Blood Base Excess -6 mmol/L (-3-3) FiO2 40 Test 06/19/19 12:22 06/19/19 17:48 06/20/19 00:40 06/20/19 06:16 Glucose (Fingerstick) 287 mg/dL (70-99) 277 mg/dL (70-99) 281 mg/dL (70-99) 225 mg/dL (70-99) Test 06/20/19 06:30 06/20/19 09:05 06/20/19 11:30 06/20/19 17:29 White Blood Count 9.9 x10^3/uL (4.0-11.0) Red Blood Count 2.71 x10^6/uL (4.30-5.70) Hemoglobin 8.5 g/dL (13.0-17.5) Hematocrit 25.8 % (39.0-53.0) Mean Corpuscular Volume 95 fL (79-100) Mean Corpuscular Hemoglobin 31 pg (25-35) Mean Corpuscular Hemoglobin Concent 33 g/dL (31-37) Red Cell Distribution Width 15.0 % (11.5-14.5) Platelet Count 120 x10^3/uL (140-400) Neutrophils (%) (Auto) 82 % (31-73) Lymphocytes (%) (Auto) 9 % (24-48) Monocytes (%) (Auto) 6 % (0-9) Eosinophils (%) (Auto) 2 % (0-3) Basophils (%) (Auto) 0 % (0-3) Neutrophils # (Auto) 8.1 x10^3/uL (1.8-7.7) Lymphocytes # (Auto) 0.9 x10^3/uL (1.0-4.8) Monocytes # (Auto) 0.6 x10^3/uL (0.0-1.1) Eosinophils # (Auto) 0.2 x10^3/uL (0.0-0.7) Basophils # (Auto) 0.0 x10^3/uL (0.0-0.2) Sodium Level 131 mmol/L (136-145) Potassium Level 3.9 mmol/L (3.5-5.1) Chloride Level 101 mmol/L (98-107) Carbon Dioxide Level 24 mmol/L (21-32) Anion Gap 6 (6-14) Blood Urea Nitrogen 69 mg/dL (8-26) Creatinine 3.1 mg/dL (0.7-1.3) Estimated GFR (Cockcroft-Gault) 19.6 BUN/Creatinine Ratio 22 (6-20) Glucose Level 254 mg/dL (70-99) Calcium Level 7.1 mg/dL (8.5-10.1) Phosphorus Level 3.7 mg/dL (2.6-4.7) Magnesium Level 1.9 mg/dL (1.8-2.4) Total Bilirubin 0.3 mg/dL (0.2-1.0) Aspartate Amino Transf (AST/SGOT) 16 U/L (15-37) Alanine Aminotransferase (ALT/SGPT) 7 U/L (16-63) Alkaline Phosphatase 59 U/L (46-116) Total Protein 3.7 g/dL (6.4-8.2) Albumin 1.3 g/dL (3.4-5.0) Albumin/Globulin Ratio 0.5 (1.0-1.7) Hepatitis B Core Total Antibody Nonreactive (Nonreactive) O2 Saturation 97 % (92-99) Arterial Blood pH 7.41 (7.35-7.45) Arterial Blood pCO2 at Patient Temp 39 mmHg (35-46) Arterial Blood pO2 at Patient Temp 111 mmHg (65-108) Arterial Blood HCO3 24 mmol/L (21-28) Arterial Blood Base Excess 0 mmol/L (-3-3) FiO2 40 Glucose (Fingerstick) 158 mg/dL (70-99) 148 mg/dL (70-99) Laboratory Tests Test 06/20/19 00:40 06/20/19 06:16 06/20/19 06:30 06/20/19 09:05 Glucose (Fingerstick) 281 mg/dL (70-99) 225 mg/dL (70-99) White Blood Count 9.9 x10^3/uL (4.0-11.0) Red Blood Count 2.71 x10^6/uL (4.30-5.70) Hemoglobin 8.5 g/dL (13.0-17.5) Hematocrit 25.8 % (39.0-53.0) Mean Corpuscular Volume 95 fL (79-100) Mean Corpuscular Hemoglobin 31 pg (25-35) Mean Corpuscular Hemoglobin Concent 33 g/dL (31-37) Red Cell Distribution Width 15.0 % (11.5-14.5) Platelet Count 120 x10^3/uL (140-400) Neutrophils (%) (Auto) 82 % (31-73) Lymphocytes (%) (Auto) 9 % (24-48) Monocytes (%) (Auto) 6 % (0-9) Eosinophils (%) (Auto) 2 % (0-3) Basophils (%) (Auto) 0 % (0-3) Neutrophils # (Auto) 8.1 x10^3/uL (1.8-7.7) Lymphocytes # (Auto) 0.9 x10^3/uL (1.0-4.8) Monocytes # (Auto) 0.6 x10^3/uL (0.0-1.1) Eosinophils # (Auto) 0.2 x10^3/uL (0.0-0.7) Basophils # (Auto) 0.0 x10^3/uL (0.0-0.2) Sodium Level 131 mmol/L (136-145) Potassium Level 3.9 mmol/L (3.5-5.1) Chloride Level 101 mmol/L (98-107) Carbon Dioxide Level 24 mmol/L (21-32) Anion Gap 6 (6-14) Blood Urea Nitrogen 69 mg/dL (8-26) Creatinine 3.1 mg/dL (0.7-1.3) Estimated GFR (Cockcroft-Gault) 19.6 BUN/Creatinine Ratio 22 (6-20) Glucose Level 254 mg/dL (70-99) Calcium Level 7.1 mg/dL (8.5-10.1) Phosphorus Level 3.7 mg/dL (2.6-4.7) Magnesium Level 1.9 mg/dL (1.8-2.4) Total Bilirubin 0.3 mg/dL (0.2-1.0) Aspartate Amino Transf (AST/SGOT) 16 U/L (15-37) Alanine Aminotransferase (ALT/SGPT) 7 U/L (16-63) Alkaline Phosphatase 59 U/L (46-116) Total Protein 3.7 g/dL (6.4-8.2) Albumin 1.3 g/dL (3.4-5.0) Albumin/Globulin Ratio 0.5 (1.0-1.7) Hepatitis B Core Total Antibody Nonreactive (Nonreactive) O2 Saturation 97 % (92-99) Arterial Blood pH 7.41 (7.35-7.45) Arterial Blood pCO2 at Patient Temp 39 mmHg (35-46) Arterial Blood pO2 at Patient Temp 111 mmHg (65-108) Arterial Blood HCO3 24 mmol/L (21-28) Arterial Blood Base Excess 0 mmol/L (-3-3) FiO2 40 Test 06/20/19 11:30 06/20/19 17:29 Glucose (Fingerstick) 158 mg/dL (70-99) 148 mg/dL (70-99) Medications Active Scripts Medications Dose Route/Sig Max Daily Dose Days Date Category Foltx Tablet (B12/Levomefolate Calcium/B-6) 1 Each Tablet 1 Each PO AFTRNOON 06/07/19 Reported Testosterone Cypionate 200 Mg/1 Ml Vial 1 Ml IM Q2WKS 06/07/19 Reported Novolog Mix 70-30 Flexpen Syrn (Insuln Asp Prt/Insulin Aspart) 100 Unit/1 Ml Insuln.pen 1 Unit SQ BIDACBL 06/07/19 Reported Lantus Solostar (Insulin Glargine,Hum.rec.anlog) 100 Unit/1 Ml Insuln.pen 30 Unit SQ QHS 06/07/19 Reported Nifedipine Er (Nifedipine) 60 Mg Tab.er.24 1 Tab PO DAILY 06/07/19 Reported Morphine Sulfate Er (Morphine Sulfate) 60 Mg Tablet.er 1 Tab PO BID 06/07/19 Reported Furosemide 40 Mg Tablet 40 Mg PO DAILY 06/07/19 Reported Finasteride 5 Mg Tablet 1 Tab PO DAILY 06/07/19 Reported Simvastatin 40 Mg Tablet 1 Tab PO QHS 06/07/19 Reported Metoprolol Succinate ( Xl ) (Metoprolol Succinate) 200 Mg Tab.er.24h 1 Tab PO DAILY 06/07/19 Reported Levothyroxine Sodium 175 Mcg Tablet 1 Tab PO DAILY 06/07/19 Reported Losartan-Hctz 100-12.5 Mg Tab (Losartan/Hydrochlorothiazide) 1 Each Tablet 1 Tab PO DAILY 06/07/19 Reported Comments CXR 06/20 reviewed no sig change, small right effusion Impression . 1. Acute Respiratory failure, multifactorial, includes septic shock, colonic ileus 2. septic shock 3. Erosive gastritis. 4. C-Diff 5. Coronary artery disease, status post coronary artery bypass grafting. 6, COLONIC ILEUS 7. abnormal cxr with atelectasis 8. SHOULDER ABSCESS 9. RENATA 10. severe PCM ID NOTE LUE abscess s/p 10 ml removal 06/13. group B strep -S/p Left shoulder open incision and drainage with arthrotomy, debridement of bone and bone cement, and joint irrigation 06/14 G B strep C. diff positive, 06/14 Plan . AC MODE/ ABG ADEQUATE SLOWLY WEAN PRESSOR VASOPRESSIN OFF VERSED, NOT AWAKE , MAY TAKE FEW DAYS NOT READY FOR TRIAL WILL CONTINUE SUPPORT HD PER NEPHRO ABG NOTED /COMPENSATED IV FLUIDS PER NEPHRO/MAY TRY ALBUMIN AGAIN. RESPONDED WELL TO IVF YESTERDAY OVERALL PROGNOSIS IS GUARDED ANTI BX PER ID D/W RN CCT 30 MIN LITA INMAN MD Jun 20, 2019 18:14
[2019-06-20] MEDS: POTASSIUM CHLORIDE 20 MEQ in DIALYSIS SOLUTION BGK 0/2.5 5,000 ML IV SCH ×3 (20:54→20:56)
[2019-06-20] MEDS: SIMVASTATIN 40 MG TABLET. PO SCH (21:17)
[2019-06-20] MEDS ORDERED: AMINO ACID IV SCH ×11 (22:00)
[2019-06-20] MEDS ORDERED: [UNRECOGNIZED DRUG - OTHER] IV SCH ×11 (22:00)
[2019-06-20] MEDS ORDERED: TOTAL PARENTERAL NUTRITION IV SCH ×11 (22:00)
[2019-06-20] MEDS ORDERED: DEXTROSE 70% IV SCH ×11 (22:00)
[2019-06-21] VITALS (24 sets, daily range): BP systolic 98–144; BP diastolic 54–83
[2019-06-21] MEDS: POTASSIUM CHLORIDE 20 MEQ in DIALYSIS SOLUTION BGK 0/2.5 5,000 ML IV SCH ×31 (00:10→20:48)
[2019-06-21] MEDS: VASOPRESSIN 40 UNIT in IV DEXTROSE 5% 100ML 100 ML IV PRN ×2 (00:13→18:38)
[2019-06-21] MEDS: DEXMEDETOMIDINE 400 MCG in IV NORMAL SALINE 100ML 96 ML IV PRN ×2 (00:30→19:20)
--- NOTE | 2019-06-21 03:13 | PN ---
DATE: 06/20/2019 SUBJECTIVE: The patient continued to be sedated, intubated and mechanically ventilated. He also continued to be on vasopressin. He is having his scheduled hemodialysis today; however, he could not tolerate ultrafiltration. His blood pressure dropped down into 70 systolic and has improved with human albumin infusion. PHYSICAL EXAMINATION: GENERAL: When I examined him this morning, he looked pale but no jaundice, cyanosis or thyromegaly. No jugular venous distension. No limb edema. VITAL SIGNS: His heart rate was 73, blood pressure was 104/59, temperature was 96.9, respiratory rate was 19 and oxygen saturation 100% on FiO2 of 40%. HEAD, EYES, EARS, NOSE AND THROAT: Showed normocephalic, atraumatic. He has a nasogastric tube in his left nostril and orotracheal tube. NECK: Supple. HEART: Showed normal first and second heart sounds. No gallop or murmur. CHEST: Clear to auscultation. No crepitation or rhonchi. ABDOMEN: Distended, soft, nontender. NEUROLOGIC: He is heavily sedated. INPUT AND OUTPUT: His intake over the last 24 hours was 5832, output was only 205. LABORATORY DATA: His lab work this morning showed a serum sodium 131, potassium 3.9, chloride 101, bicarbonate 24, anion gap of 6, BUN 69, creatinine 3.1, estimated GFR was 19.6, glucose was 154, calcium was 7.1, phosphorus 3.7, magnesium was 1.9. Total bilirubin, AST, ALT, alkaline phosphatase were normal. Total protein was 3.7, albumin was 1.3. His white cell count was 9900, hemoglobin 8.5, hematocrit 25.8, MCV was 95, and platelet count of 120,000. His blood gases this morning showed a pH of 7.41, pCO2 of 39, pO2 of 111, bicarbonate 24 and oxygen saturation was 97% on FiO2 of 40%. He is hepatitis B surface antigen, hepatitis B surface antibody negative. Clostridium difficile toxins were positive. Chest x-ray showed that the cardiomediastinal silhouette is similar in appearance. Right internal jugular double-lumen catheter, nasogastric tube, endotracheal tube and left ____ central venous catheter in similar position. Left shoulder hardware is partially profiled. There is increase in small right pleural effusion. There is mild pulmonary vascular congestion, which appears stable. No pneumothorax. ASSESSMENT: 1. Left upper extremity abscess, status post aspiration of 10 mL on 06/13, which grew group B Streptococcus. He is status post left shoulder open incision and drainage with arthrotomy, debridement of bone and bone cement and joint irrigation on 06/14. 2. Clostridium difficile colitis. 3. PENICILLIN ALLERGY. 4. Hypotension, for which he is on vasopressors, and Levophed was discontinued. 5. Postoperative respiratory failure for which he was intubated and continued to be mechanically ventilated. 6. Leukocytosis, resolved. His white cell count is down to 9900. 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 Apparently, he has had an EGD before which showed that he has erosive gastritis and duodenal ulcer for which he is on proton pump inhibitor. 8. Coronary artery disease. 9. Urinary retention for which he has Bledsoe catheter in place. 10. He has fracture with 2 superior mediastinal wires. PLAN: He is to continue with IV ceftriaxone for group B Streptococcus and oral vancomycin for C. difficile colitis. Continue with mechanical ventilation, wean as tolerated. Continue with hemodialysis as per Nephrology team. Continue with contact isolation. His potassium has improved. We did ask the pharmacist to adjust the TPN. KERI DIGGS MD DR: PAIGE/chastity JOB#: [id number] / [id number]
[2019-06-21 04:26] LABS: BASO % 0 % (0-3); EOS # 0.2 x10^3/uL (0.0-0.7); EOS % 2 % (0-3); HEMATOCRIT 26.8 % (39.0-53.0); HEMOGLOBIN 9.2 g/dL (13.0-17.5); LYMPH % 12 % (24-48); MEAN CORPUSCULAR HEMOGLOBIN 32 pg (25-35); MEAN CORPUSCULAR HGB CONC 34 g/dL (31-37); MEAN CORPUSCULAR VOLUME 93 fL (79-100); MONO # 0.5 x10^3/uL (0.0-1.1); MONO % 6 % (0-9); NEUT # 6.6 x10^3/uL (1.8-7.7); NEUT % 81 % (31-73); PLATELET COUNT 114 x10^3/uL (140-400); RED BLOOD COUNT 2.87 x10^6/uL (4.30-5.70); RED CELL DISTRIBUTION WIDTH 14.6 % (11.5-14.5); WHITE BLOOD COUNT 8.2 x10^3/uL (4.0-11.0)
[2019-06-21 04:57] LABS: MAGNESIUM 1.9 mg/dL (1.8-2.4); PHOSPHORUS 2.4 mg/dL (2.6-4.7)
[2019-06-21 05:07] LABS: CALCIUM 7.2 mg/dL (8.5-10.1); CREATININE 1.6 mg/dL (0.7-1.3); GFR 42.1
[2019-06-21] MEDS: IV 1/2 NORMAL SALINE 1,000 ML IV SCH ×3 (05:17→21:53)
[2019-06-21] MEDS: INSULIN LISPRO 300 UNITS/3 ML VIAL. SQ SCH ×4 (05:50→19:07)
[2019-06-21] MEDS: LEVOTHYROXINE 175 MCG TABLET PO SCH (05:50)
--- NOTE | 2019-06-21 07:50 | PDOC ---
Infectious Disease Note Subjective Subjective Remains intubated Sedated No fevers last 24 hours + diarrhea TPN Vital Sign Vital Signs Vital Signs Date Time Temp Pulse Resp B/P (MAP) Pulse Ox O2 Delivery O2 Flow Rate FiO2 06/21/19 07:24 100 Ventilator 06/21/19 06:00 47 14 121/66 (84) 06/21/19 04:00 95.0 95.0 Physical Exam PHYSICAL EXAM GENERAL: Orally intubated and sedated HEENT: Pupils are equal, NGT, ETT NECK: Supple LUNGS: Course HEART: S1, S2. ABDOMEN: Obese, soft + BS, + rectal tube : Bledsoe EXTREMITIES: Generalized edema. Left shoulder incison well-approx/thiago. SKIN: Without signs of rash NEUROLOGIC: Sedated Temp HDC (06/15) [facility] PIV Labs Lab Laboratory Tests Test 06/20/19 09:05 06/20/19 11:30 06/20/19 17:29 06/20/19 21:23 O2 Saturation 97 % (92-99) Arterial Blood pH 7.41 (7.35-7.45) Arterial Blood pCO2 at Patient Temp 39 mmHg (35-46) Arterial Blood pO2 at Patient Temp 111 mmHg (65-108) Arterial Blood HCO3 24 mmol/L (21-28) Arterial Blood Base Excess 0 mmol/L (-3-3) FiO2 40 Glucose (Fingerstick) 158 mg/dL (70-99) 148 mg/dL (70-99) 144 mg/dL (70-99) Test 06/21/19 00:13 06/21/19 04:20 Glucose (Fingerstick) 130 mg/dL (70-99) White Blood Count 8.2 x10^3/uL (4.0-11.0) Red Blood Count 2.87 x10^6/uL (4.30-5.70) Hemoglobin 9.2 g/dL (13.0-17.5) Hematocrit 26.8 % (39.0-53.0) Mean Corpuscular Volume 93 fL (79-100) Mean Corpuscular Hemoglobin 32 pg (25-35) Mean Corpuscular Hemoglobin Concent 34 g/dL (31-37) Red Cell Distribution Width 14.6 % (11.5-14.5) Platelet Count 114 x10^3/uL (140-400) Neutrophils (%) (Auto) 81 % (31-73) Lymphocytes (%) (Auto) 12 % (24-48) Monocytes (%) (Auto) 6 % (0-9) Eosinophils (%) (Auto) 2 % (0-3) Basophils (%) (Auto) 0 % (0-3) Neutrophils # (Auto) 6.6 x10^3/uL (1.8-7.7) Lymphocytes # (Auto) 1.0 x10^3/uL (1.0-4.8) Monocytes # (Auto) 0.5 x10^3/uL (0.0-1.1) Eosinophils # (Auto) 0.2 x10^3/uL (0.0-0.7) Basophils # (Auto) 0.0 x10^3/uL (0.0-0.2) Sodium Level 137 mmol/L (136-145) Potassium Level 4.0 mmol/L (3.5-5.1) Chloride Level 106 mmol/L (98-107) Carbon Dioxide Level 29 mmol/L (21-32) Anion Gap 2 (6-14) Blood Urea Nitrogen 36 mg/dL (8-26) Creatinine 1.6 mg/dL (0.7-1.3) Estimated GFR (Cockcroft-Gault) 42.1 Glucose Level 134 mg/dL (70-99) Calcium Level 7.2 mg/dL (8.5-10.1) Phosphorus Level 2.4 mg/dL (2.6-4.7) Magnesium Level 1.9 mg/dL (1.8-2.4) Micro Microbiology 06/14/19 AFB Specimen Processing Tissue - Final, Resulted 06/14/19 Acid Fast Bacilli Culture, Resulted Pending 06/14/19 Gram Stain - Final, Resulted 06/14/19 Fungal Culture, Resulted Pending 06/14/19 Fungal Culture Result 1, Resulted Pending 06/13/19 Blood Culture - Preliminary, Resulted NO GROWTH AFTER 4 DAYS Objective Assessment LUE abscess s/p 10 ml removal 06/13. group B strep -S/p Left shoulder open incision and drainage with arthrotomy, debridement of bone and bone cement, and joint irrigation 06/14 G B strep C. diff positive, 06/14 PCN allergy - Hives - believes has tolerated Cephalosporins per his RENATA requiring HD Hypotension - currently Levophed Post op resp failure - intubated - Pulm following Leukocytosis - worse but s/p Dexamethasone 06/14 preop and post op reactive ? Malik syndrome - GI following + BM yesterday rectal tube in CAD - Cardiology following H/o MRSA H/o Group B strep sepsis Erosive Gastritis s/p EGD 06/08 Urinary retention - Bledsoe placed 06/12 Fractures of 2 superior mediastinal wires Plan Plan of Care rocephine and PO vanc Monitor labs/temp f/u cultures Contact isolation Critically ill D/w nursing residential prognosis poor AP PEACE MD Jun 21, 2019 07:50
[2019-06-21] MEDS ORDERED: ALBUMIN HUMAN 25% 100 ML IV ONE (08:15)
[2019-06-21 08:23] LABS: BASE EXCESS ABG -1 mmol/L (-3-3); HCO3 ABG 24 mmol/L (21-28); PCO2 ABG 44 mmHg (35-46); PO2 ABG 100 mmHg (65-108); SAT O2 ABG 96 % (92-99)
[2019-06-21 08:24] LABS: FIO2 ABG 40
[2019-06-21] MEDS: PANTOPRAZOLE IV PUSH 40 MG VIAL. IVP SCH (08:54)
[2019-06-21] MEDS: cefTRIAXone IV Push 2 GM VIAL. IVP SCH (08:54)
[2019-06-21] MEDS: VITAMIN B COMPLEX TABLET. PO SCH (08:55)
[2019-06-21] MEDS: FINASTERIDE 5 MG TABLET. PO SCH (08:55)
[2019-06-21] MEDS: HEPARIN for SUB-Q USE 5,000 UNIT/ML VIAL. SQ SCH ×2 (08:55→20:28)
[2019-06-21] MEDS: VANCOMYCIN 125 MG/2.5 ML ORAL SOLUTION. PO SCH ×4 (08:56→20:25)
[2019-06-21] MEDS: MORPHINE ER 30 MG TABLET.ER PO SCH ×2 (08:57→20:17)
--- NOTE | 2019-06-21 09:17 | RAD ---
EXAM: AP View of the chest DATE: 06/21/2019 9:00 AM INDICATION: Respiratory failure COMPARISON: 06/20/2019 FINDINGS/ IMPRESSION: Left sided vascular catheter tip projects over the proximal SVC. Right IJ vascular catheter terminates over the distal SVC. The enteric tube proximal sidehole is seen within the distal esophagus, can be advanced 8-9 cm. Coronary mediastinal silhouette is stable. Linear opacities in the right midlung and lateral patchy lung base airspace opacities are grossly unchanged. Small right pleural effusion. No pneumothorax. Electronically signed by: Killian Merchant MD (06/21/2019 9:14 AM) [facility]
--- NOTE | 2019-06-21 09:46 | PDOC ---
SUBJECTIVE ROS stable , Intubated, on vasopressin Started on CRRT last evening OBJECTIVE Vital Signs Vital Signs Date Time Temp Pulse Resp B/P (MAP) Pulse Ox O2 Delivery O2 Flow Rate FiO2 06/21/19 09:20 100 Ventilator 06/21/19 06:00 47 14 121/66 (84) 06/21/19 04:00 95.0 95.0 I & 0 Intake and Output 06/21/19 07:00 Intake Total 1358 ml Output Total 239 ml Balance 1119 ml IV Total 1358 ml Output Urine Total 239 ml # Bowel Movements 4 PHYSICAL EXAM Physical Exam GENERAL: Orally intubated and sedated HEENT: NGT, ETT NECK: Supple LUNGS: CTA ant HEART: S1, S2. ABDOMEN: soft + BS, + rectal tube : Bledsoe EXTREMITIES: Edema 2+ has a right hand deformity. His left shoulder is dressed. 2 plus edema. Left heel protector. SKIN: No rash. NEUROLOGIC: Sedated Temp HDC (06/15) DIAGNOSIS/ASSESSMENT Assessment & Plan RENATA-ATN.requiring HD, Switched to CRRT last evening for UF , tolerating well, Replace e-lytes per Protocol Discussed with Felicia Metabolic acidosis- resolved Hyponatremia-resolved Hypokalemia- K normal CKD stage 3- Cr Prob 1.5 HypoAlbuminemia - severe Hypotension- On vasopressin BP meds held Urinary retention- Flomax on Hold due to Low BP LUE abscess s/p Left shoulder open incision and drainage with arthrotomy, debridement of bone and bone cement, and joint irrigation 06/14 group B strep Post op resp failure - intubated - Pulm following C. diff positive, 06/14 Erosive Gastritis s/p EGD 06/08 Anemia- decreased CAD - Cardiology following Discussed with RN COMMENT/RELEVANT DATA Meds Current Medications Medications (Trade) Dose Ordered Sig/Lauren Start Time Stop Time Status Last Admin Dose Admin Albumin Human 100 ml @ 100 mls/hr 1X ONCE 06/21/19 08:15 06/21/19 09:14 DC 06/21/19 08:57 100 MLS/HR Amino Acids/ Electrolytes/ Dextrose 1,000 ml @ 80 mls/hr [id number] 06/14/19 10:30 06/15/19 21:59 DC 06/15/19 16:23 80 MLS/HR Bisacodyl (Dulcolax Supp) 10 mg 1X ONCE 06/07/19 17:45 06/07/19 17:46 DC 06/07/19 21:40 10 MG Bisacodyl (Dulcolax Tab) 5 mg PRN DAILY PRN 06/11/19 15:45 06/20/19 11:31 DC Bupivacaine HCl/ Epinephrine Bitart (Sensorcaine-Epi 0.25%-1:[id number] Mpf) 30 ml 1X ONCE 06/14/19 17:45 06/14/19 17:46 Cancel Ceftriaxone Sodium (Rocephin) 2 gm Q24H 06/19/19 09:00 06/21/19 08:57 2 GM Clindamycin Phosphate 50 ml @ As Directed STK-MED ONCE 06/14/19 18:07 06/14/19 18:07 DC Daptomycin 560 mg/ Sodium Chloride 50 ml @ 100 mls/hr Q48H 06/15/19 14:00 06/18/19 07:56 DC 06/17/19 14:29 100 MLS/HR Dexamethasone Sodium Phosphate (Decadron) 4 mg STK-MED ONCE 06/14/19 16:17 06/14/19 16:17 DC Dexmedetomidine HCl 400 mcg/ Sodium Chloride 100 ml @ 5.58 mls/hr CONT PRN 06/20/19 16:15 06/21/19 00:30 5.58 MLS/HR Dextrose 250 ml PRN Q15MIN PRN 06/09/19 11:45 06/09/19 15:19 DC Dextrose (Dextrose 50%-Water Syringe) 12.5 gm PRN Q15MIN PRN 06/09/19 11:45 Diphenhydramine HCl (Benadryl) 25 mg 1X PRN PRN 06/20/19 07:30 06/21/19 07:29 DC Ephedrine Sulfate (ePHEDrine PF IN SALINE SYRINGE) 50 mg STK-MED ONCE 06/14/19 19:21 06/14/19 19:21 DC Famotidine (Pepcid Vial) 20 mg STK-MED ONCE 06/14/19 16:17 06/14/19 16:17 DC Fentanyl Citrate (Fentanyl 2ml Vial) 50 mcg PRN Q1HR PRN 06/20/19 16:15 Finasteride (Proscar) 5 mg DAILY 06/12/19 12:00 06/13/19 09:39 DC Furosemide (Lasix) 40 mg DAILY 06/08/19 12:00 06/14/19 13:01 DC 06/12/19 08:36 40 MG Heparin Sodium (Porcine) (Heparin Sodium) 5,000 unit Q12HR 06/19/19 14:00 06/21/19 08:57 5,000 UNIT Hydromorphone HCl (Dilaudid) 2 mg PRN Q3HRS PRN 06/07/19 22:00 06/14/19 23:55 DC 06/14/19 12:39 2 MG Info (PHARMACY MONITORING -- do not chart) 1 each PRN DAILY PRN 06/20/19 07:30 Info (Tpn Per Pharmacy) 1 each PRN DAILY PRN 06/15/19 11:30 06/20/19 11:33 1 EACH Insulin Glargine (Lantus Syringe) 30 unit QHS 06/08/19 21:00 06/20/19 21:27 30 UNIT Insulin Human Lispro (HumaLOG) 0-9 UNITS Q6HRS 06/16/19 12:00 06/20/19 11:33 4 UNITS Ketamine HCl (Ketamine) 50 mg STK-MED ONCE 06/14/19 17:03 06/14/19 17:03 DC Levothyroxine Sodium (Synthroid) 175 mcg DAILY06 06/08/19 12:00 06/21/19 05:50 175 MCG Lidocaine HCl (Lidocaine Pf 2% Vial) 5 ml STK-MED ONCE 06/14/19 16:17 06/14/19 16:17 DC Lidocaine/Sodium Bicarbonate (Buffered Lidocaine 1%) 3 ml 1X ONCE 06/15/19 11:00 06/15/19 11:01 DC Lorazepam (Ativan) 0.5 mg PRN Q6HRS PRN 06/07/19 18:00 06/07/19 18:14 DC Losartan Potassium (Cozaar) 100 mg DAILY 06/08/19 12:00 06/14/19 13:01 DC 06/12/19 08:36 100 MG Magnesium Sulfate 50 ml @ 25 mls/hr 1X ONCE 06/16/19 08:30 06/16/19 10:29 DC 06/16/19 08:27 25 MLS/HR Meropenem 1 gm/ Sodium Chloride 100 ml @ 200 mls/hr DAILY 06/15/19 09:00 06/19/19 07:22 DC 06/18/19 10:55 200 MLS/HR Methylnaltrexone Lutz (Relistor) 6 mg 1X ONCE 06/14/19 14:00 06/14/19 14:01 DC 06/14/19 14:15 6 MG Metoprolol Succinate (Toprol Xl) 200 mg DAILY 06/08/19 12:00 06/14/19 13:01 DC 06/12/19 08:36 200 MG Metronidazole 100 ml @ 100 mls/hr Q8HRS 06/15/19 17:30 06/19/19 07:22 DC 06/19/19 06:24 100 MLS/HR Midazolam HCl 100 ml @ 0 mls/hr CONT PRN 06/15/19 13:00 06/20/19 04:10 7 MLS/HR Morphine Sulfate (Ms Contin) 60 mg BID 06/08/19 12:00 06/20/19 11:33 60 MG Nicotine (Nicoderm Cq 21mg) 1 patch PRN DAILY PRN 06/07/19 18:00 06/07/19 18:14 DC Nifedipine (Procardia Xl) 60 mg DAILY 06/08/19 12:00 06/14/19 13:01 DC 06/12/19 08:36 60 MG Non-Formulary Medication (Insuln Asp Prt/ Insulin Aspart (Novolog Mix 70-30 Flexpen Syrn)) 1 unit BIDACBL 06/08/19 11:30 06/08/19 19:34 DC Norepinephrine Bitartrate 250 ml @ 17.398 mls/ hr CONT PRN 06/14/19 14:30 06/18/19 17:55 34.796 MLS/HR Ondansetron HCl (Zofran) 4 mg STK-MED ONCE 06/14/19 16:17 06/14/19 16:17 DC Pantoprazole Sodium (PROTONIX VIAL for IV PUSH) 40 mg DAILYAC 06/14/19 07:30 06/21/19 08:57 40 MG Pantoprazole Sodium (Protonix) 40 mg DAILYAC 06/12/19 07:30 06/13/19 13:27 DC 06/12/19 08:36 40 MG Phenylephrine HCl (PHENYLEPHRINE in 0.9% NACL PF) 1 mg STK-MED ONCE 06/14/19 17:03 06/14/19 17:04 DC Polyethylene Glycol (miraLAX PACKET) 17 gm PRN DAILY PRN 06/11/19 15:45 06/20/19 11:31 DC Potassium Chloride 20 meq/ Bicarbonate Dialysis Soln w/ out KCl 5,010 ml @ 1,500 mls/hr Q3H21M 06/20/19 18:00 06/21/19 08:57 1,500 MLS/HR Propofol 100 ml @ 0 mls/hr CONT PRN 06/14/19 20:00 06/15/19 10:33 8.351 MLS/HR Ringer's Solution 1,000 ml @ 75 mls/hr [id number] 06/08/19 09:15 06/09/19 08:01 DC 06/08/19 14:01 75 MLS/HR Rocuronium Lutz (Zemuron) 50 mg STK-MED ONCE 06/14/19 16:32 06/14/19 16:32 DC Simvastatin (Zocor) 40 mg QHS 06/08/19 21:00 06/20/19 21:27 40 MG Sodium Bicarbonate 50 meq/Sodium Chloride 1,050 ml @ 125 mls/hr Q8H24M 06/15/19 10:15 06/16/19 18:21 DC 06/16/19 09:26 125 MLS/HR Sodium Chloride 90 meq/Potassium Chloride 50 meq/ Magnesium Sulfate 10 meq/Calcium Gluconate 10 meq/ Multivitamins 10 ml/Chromium/ Copper/Manganese/ Seleni/Zn 1 ml/ Total Parenteral Nutrition/Amino Acids/Dextrose 1,512 ml @ 63 mls/hr TPN CONT 06/15/19 22:00 06/16/19 21:59 DC 06/16/19 00:19 63 MLS/HR Sodium Chloride 90 meq/Potassium Chloride 50 meq/ Magnesium Sulfate 10 meq/Calcium Gluconate 10 meq/ Multivitamins 10 ml/Chromium/ Copper/Manganese/ Seleni/Zn 1 ml/ Total Parenteral Nutrition/Amino Acids/Dextrose/ Fat Emulsion Intravenous 1,512 ml @ 63 mls/hr TPN CONT 06/16/19 22:00 06/17/19 21:59 DC 06/16/19 22:43 63 MLS/HR Sodium Chloride 90 meq/Potassium Chloride 50 meq/ Potassium Phosphate 13.6 mmol/Magnesium Sulfate 10 meq/ Calcium Gluconate 10 meq/ Multivitamins 10 ml/Chromium/ Copper/Manganese/ Seleni/Zn 1 ml/ Total Parenteral Nutrition/Amino Acids/Dextrose/ Fat Emulsion Intravenous 1,512 ml @ 63 mls/hr TPN CONT 06/17/19 22:00 06/18/19 21:59 DC 06/17/19 21:48 63 MLS/HR Sodium Chloride 90 meq/Potassium Chloride 70 meq/ Potassium Phosphate 13.6 mmol/Magnesium Sulfate 10 meq/ Calcium Gluconate 10 meq/ Multivitamins 10 ml/Chromium/ Copper/Manganese/ Seleni/Zn 1 ml/ Total Parenteral Nutrition/Amino Acids/Dextrose/ Fat Emulsion Intravenous 1,512 ml @ 63 mls/hr TPN CONT 06/18/19 22:00 06/19/19 21:59 DC 06/18/19 22:59 63 MLS/HR Sodium Chloride 90 meq/Potassium Chloride 85 meq/ Potassium Phosphate 13.6 mmol/Magnesium Sulfate 10 meq/ Calcium Gluconate 10 meq/ Multivitamins 10 ml/Chromium/ Copper/Manganese/ Seleni/Zn 1 ml/ Insulin Human Regular 10 unit/ Total Parenteral Nutrition/Amino Acids/Dextrose/ Fat Emuls... 1,512 ml @ 63 mls/hr TPN CONT 06/19/19 22:00 06/20/19 21:59 DC 06/19/19 22:27 63 MLS/HR Sodium Chloride 100 meq/Potassium Chloride 95 meq/ Potassium Phosphate 13.6 mmol/Magnesium Sulfate 10 meq/ Calcium Gluconate 10 meq/ Multivitamins 10 ml/Chromium/ Copper/Manganese/ Seleni/Zn 1 ml/ Insulin Human Regular 10 unit/ Total Parenteral Nutrition/Amino Acids/Dextrose/ Fat Emuls... 1,512 ml @ 63 mls/hr TPN CONT 06/20/19 22:00 06/21/19 21:59 06/20/19 21:54 63 MLS/HR Succinylcholine Chloride (Anectine) 200 mg STK-MED ONCE 06/14/19 16:17 06/14/19 16:17 DC Tamsulosin HCl (Flomax) 0.4 mg QHS 06/12/19 21:00 06/14/19 13:01 DC 06/12/19 21:26 0.4 MG Testosterone Cypionate (Depo-Testosterone) 200 mg Q2WKS 06/22/19 09:00 Vancomycin HCl (Vancomycin Oral Solution) 125 mg [id number] 06/16/19 09:00 06/21/19 08:57 125 MG Vasopressin 40 unit/Dextrose 102 ml @ 6 mls/hr CONT PRN 06/15/19 14:30 06/21/19 00:13 6 MLS/HR Vitamin B Complex (Bud B) 1 tab DAILY 06/08/19 12:00 06/21/19 08:57 1 TAB Lab Laboratory Tests Test 06/20/19 11:30 06/20/19 17:29 06/20/19 21:23 06/21/19 00:13 Glucose (Fingerstick) 158 mg/dL (70-99) 148 mg/dL (70-99) 144 mg/dL (70-99) 130 mg/dL (70-99) Test 06/21/19 04:20 06/21/19 08:20 White Blood Count 8.2 x10^3/uL (4.0-11.0) Red Blood Count 2.87 x10^6/uL (4.30-5.70) Hemoglobin 9.2 g/dL (13.0-17.5) Hematocrit 26.8 % (39.0-53.0) Mean Corpuscular Volume 93 fL (79-100) Mean Corpuscular Hemoglobin 32 pg (25-35) Mean Corpuscular Hemoglobin Concent 34 g/dL (31-37) Red Cell Distribution Width 14.6 % (11.5-14.5) Platelet Count 114 x10^3/uL (140-400) Neutrophils (%) (Auto) 81 % (31-73) Lymphocytes (%) (Auto) 12 % (24-48) Monocytes (%) (Auto) 6 % (0-9) Eosinophils (%) (Auto) 2 % (0-3) Basophils (%) (Auto) 0 % (0-3) Neutrophils # (Auto) 6.6 x10^3/uL (1.8-7.7) Lymphocytes # (Auto) 1.0 x10^3/uL (1.0-4.8) Monocytes # (Auto) 0.5 x10^3/uL (0.0-1.1) Eosinophils # (Auto) 0.2 x10^3/uL (0.0-0.7) Basophils # (Auto) 0.0 x10^3/uL (0.0-0.2) Sodium Level 137 mmol/L (136-145) Potassium Level 4.0 mmol/L (3.5-5.1) Chloride Level 106 mmol/L (98-107) Carbon Dioxide Level 29 mmol/L (21-32) Anion Gap 2 (6-14) Blood Urea Nitrogen 36 mg/dL (8-26) Creatinine 1.6 mg/dL (0.7-1.3) Estimated GFR (Cockcroft-Gault) 42.1 Glucose Level 134 mg/dL (70-99) Calcium Level 7.2 mg/dL (8.5-10.1) Phosphorus Level 2.4 mg/dL (2.6-4.7) Magnesium Level 1.9 mg/dL (1.8-2.4) O2 Saturation 96 % (92-99) Arterial Blood pH 7.37 (7.35-7.45) Arterial Blood pCO2 at Patient Temp 44 mmHg (35-46) Arterial Blood pO2 at Patient Temp 100 mmHg (65-108) Arterial Blood HCO3 24 mmol/L (21-28) Arterial Blood Base Excess -1 mmol/L (-3-3) FiO2 40 Results All relevant outside records, renal labs, imaging studies, telemetry/EKG's were reviewed. GUNNAR IGLESISA MD Jun 21, 2019 09:46
--- NOTE | 2019-06-21 10:09 | PDOC ---
Objective: Objective: D/w nurse - off sedation, wakes up a little sometimes, DNR, plans to monitor for improvement w/ CRRT. Vital Signs: Vital Signs Date Time Temp Pulse Resp B/P (MAP) Pulse Ox O2 Delivery O2 Flow Rate FiO2 06/21/19 09:20 100 Ventilator 06/21/19 06:00 47 14 121/66 (84) 06/21/19 04:00 95.0 95.0 Labs: Laboratory Tests Test 06/20/19 11:30 06/20/19 17:29 06/20/19 21:23 06/21/19 00:13 Glucose (Fingerstick) 158 mg/dL 148 mg/dL 144 mg/dL 130 mg/dL Test 06/21/19 04:20 06/21/19 08:20 White Blood Count 8.2 x10^3/uL Red Blood Count 2.87 x10^6/uL Hemoglobin 9.2 g/dL Hematocrit 26.8 % Mean Corpuscular Volume 93 fL Mean Corpuscular Hemoglobin 32 pg Mean Corpuscular Hemoglobin Concent 34 g/dL Red Cell Distribution Width 14.6 % Platelet Count 114 x10^3/uL Neutrophils (%) (Auto) 81 % Lymphocytes (%) (Auto) 12 % Monocytes (%) (Auto) 6 % Eosinophils (%) (Auto) 2 % Basophils (%) (Auto) 0 % Neutrophils # (Auto) 6.6 x10^3/uL Lymphocytes # (Auto) 1.0 x10^3/uL Monocytes # (Auto) 0.5 x10^3/uL Eosinophils # (Auto) 0.2 x10^3/uL Basophils # (Auto) 0.0 x10^3/uL Sodium Level 137 mmol/L Potassium Level 4.0 mmol/L Chloride Level 106 mmol/L Carbon Dioxide Level 29 mmol/L Anion Gap 2 Blood Urea Nitrogen 36 mg/dL Creatinine 1.6 mg/dL Estimated GFR (Cockcroft-Gault) 42.1 Glucose Level 134 mg/dL Calcium Level 7.2 mg/dL Phosphorus Level 2.4 mg/dL Magnesium Level 1.9 mg/dL O2 Saturation 96 % Arterial Blood pH 7.37 Arterial Blood pCO2 at Patient Temp 44 mmHg Arterial Blood pO2 at Patient Temp 100 mmHg Arterial Blood HCO3 24 mmol/L Arterial Blood Base Excess -1 mmol/L FiO2 40 Imaging: CXR 06/21/19 FINDINGS/ IMPRESSION: Left sided vascular catheter tip projects over the proximal SVC. Right IJ vascular catheter terminates over the distal SVC. The enteric tube proximal si dehole is seen within the distal esophagus, can be advanced 8-9cm. Coronary mediastinal silhouette is stable. Linear opacities in the right midlung and lateral patchy lung base airspace opacities are grossly unchanged. Small right pleural effusion. No pneumothorax. PE: GEN: intubated, CRRT LUNGS: vent HEART: RRR ABD: slightly more firm today, BS+, large hernia NEURO/PSYCH: off sedation A/P: LUE abscess - group B strep Resp failure, renal failure C Diff - on vanco Erosive esophagitis, duodenal ulcer - on PPI -- Continue same per GI. GERALD SMITH Jun 21, 2019 10:09
--- NOTE | 2019-06-21 11:36 | PDOC2 ---
PALLIATIVE CARE Palliative Care Note Palliative Care Spoke with Purnima along with Dr. De Paz. Weaning trials this am. Will continue with current treatment plan. CRRT Will need to establish re-intubation before patient is extubated. NIKKO NEWBY Jun 21, 2019 11:36
--- NOTE | 2019-06-21 11:41 | PN ---
DATE: 06/21/2019 SUBJECTIVE: The patient is continued to be intubated, sedated. He will continue to be on vasopressin; however, he has been afebrile. He is currently on continuous venous ultrafiltration. PHYSICAL EXAMINATION: GENERAL: When I examined him, he looked pale, but no jaundice, cyanosis or thyromegaly. No jugular venous distension. No limb edema. VITAL SIGNS: His heart rate was 47, blood pressure was 118/83, temperature was 97.4, respiratory rate was 14 and oxygen saturation was 100% on FiO2 of 40%. HEAD, EYES, EARS, NOSE AND THROAT: Showed normocephalic, atraumatic. He has a nasogastric tube and orotracheal tube. NECK: Supple. HEART: Showed normal first and second heart sounds with no gallop, rub or murmur. CHEST: Clear to auscultation. No crepitation or rhonchi. ABDOMEN: Distended, soft, nontender. NEUROLOGIC: He is heavily sedated. His intake was 4730. He continued to be oliguric. LABORATORY DATA: His labwork this morning showed a serum sodium 137, potassium 4, chloride 106, bicarbonate 29, anion gap of 2, BUN 36, creatinine 1.6, estimated GFR was 42 mL per minute, his glucose 134, calcium was 7.2, phosphorus was 2.4, and magnesium was 1.9. His blood gases this morning showed a pH of 7.37, pCO2 of 44, pO2 of 100, bicarbonate 24, and oxygen saturation was 96% on FiO2 of 40%. ASSESSMENT: 1. Left upper extremity abscess, status post aspiration of 10 mL on 06/13/2019, which grew group B streptococcus. He is also status post left shoulder open incision and drainage with arthrotomy, debridement of bone and bone cement and joint irrigation on 06/14/2019. 2. Clostridium difficile colitis. 3. PENICILLIN ALLERGY. 4. Hypertension, for which he is on vasopressin. His Levophed was discontinued. 5. Postoperative respiratory failure, for which he continues to be intubated, mechanically ventilated, maintaining his oxygen saturation to 100% on FiO2 of 40%. 6. Leukocytosis has resolved. His white cell count is down to 8200. 7. 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 Apparently, he had an EGD before, which showed that he has erosive gastritis and duodenal ulcer, for which he is now on a proton pump inhibitor. 8. Coronary artery disease, status post coronary artery bypass graft. 9. Urinary retention, for which he has a Bledsoe catheter in place. PLAN: 1. To continue with IV ceftriaxone for group B streptococcus and oral vancomycin for Clostridium difficile colitis. 2. Continue with mechanical ventilation, wean as tolerated. 3. Continue with hemodialysis as per Nephrology team. Continue with contact isolation. Continue with nutritional support in the form of TPN. His hyponatremia and hypokalemia have both improved. KERI DIGGS MD DR: PAIGE/chastity JOB#: [id number] / [id number]
--- NOTE | 2019-06-21 11:56 | PDOC ---
PULMONARY PROGRESS NOTES Subjective , off versed and FENTANYL, STARTING TO WAKE UP DID NOT DO WELL WITH CPAP off levophed PT ON AC MODE FIO2 DOWN TO 40 % STILL on vasopressin Vitals Vital Signs Date Time Temp Pulse Resp B/P (MAP) Pulse Ox O2 Delivery O2 Flow Rate FiO2 06/21/19 11:45 100 Ventilator 06/21/19 06:00 47 14 121/66 (84) 06/21/19 04:00 95.0 95.0 Lungs: Other (decrease bases) Cardiovascular: S1, S2 Abdomen: Other (distended) Extremities: Other (2+edema, scrotal edema) Skin: Warm Labs Laboratory Tests Test 06/19/19 12:22 06/19/19 17:48 06/20/19 00:40 06/20/19 06:16 Glucose (Fingerstick) 287 mg/dL (70-99) 277 mg/dL (70-99) 281 mg/dL (70-99) 225 mg/dL (70-99) Test 06/20/19 06:30 06/20/19 09:05 06/20/19 11:30 06/20/19 17:29 White Blood Count 9.9 x10^3/uL (4.0-11.0) Red Blood Count 2.71 x10^6/uL (4.30-5.70) Hemoglobin 8.5 g/dL (13.0-17.5) Hematocrit 25.8 % (39.0-53.0) Mean Corpuscular Volume 95 fL (79-100) Mean Corpuscular Hemoglobin 31 pg (25-35) Mean Corpuscular Hemoglobin Concent 33 g/dL (31-37) Red Cell Distribution Width 15.0 % (11.5-14.5) Platelet Count 120 x10^3/uL (140-400) Neutrophils (%) (Auto) 82 % (31-73) Lymphocytes (%) (Auto) 9 % (24-48) Monocytes (%) (Auto) 6 % (0-9) Eosinophils (%) (Auto) 2 % (0-3) Basophils (%) (Auto) 0 % (0-3) Neutrophils # (Auto) 8.1 x10^3/uL (1.8-7.7) Lymphocytes # (Auto) 0.9 x10^3/uL (1.0-4.8) Monocytes # (Auto) 0.6 x10^3/uL (0.0-1.1) Eosinophils # (Auto) 0.2 x10^3/uL (0.0-0.7) Basophils # (Auto) 0.0 x10^3/uL (0.0-0.2) Sodium Level 131 mmol/L (136-145) Potassium Level 3.9 mmol/L (3.5-5.1) Chloride Level 101 mmol/L (98-107) Carbon Dioxide Level 24 mmol/L (21-32) Anion Gap 6 (6-14) Blood Urea Nitrogen 69 mg/dL (8-26) Creatinine 3.1 mg/dL (0.7-1.3) Estimated GFR (Cockcroft-Gault) 19.6 BUN/Creatinine Ratio 22 (6-20) Glucose Level 254 mg/dL (70-99) Calcium Level 7.1 mg/dL (8.5-10.1) Phosphorus Level 3.7 mg/dL (2.6-4.7) Magnesium Level 1.9 mg/dL (1.8-2.4) Total Bilirubin 0.3 mg/dL (0.2-1.0) Aspartate Amino Transf (AST/SGOT) 16 U/L (15-37) Alanine Aminotransferase (ALT/SGPT) 7 U/L (16-63) Alkaline Phosphatase 59 U/L (46-116) Total Protein 3.7 g/dL (6.4-8.2) Albumin 1.3 g/dL (3.4-5.0) Albumin/Globulin Ratio 0.5 (1.0-1.7) Hepatitis B Core Total Antibody Nonreactive (Nonreactive) O2 Saturation 97 % (92-99) Arterial Blood pH 7.41 (7.35-7.45) Arterial Blood pCO2 at Patient Temp 39 mmHg (35-46) Arterial Blood pO2 at Patient Temp 111 mmHg (65-108) Arterial Blood HCO3 24 mmol/L (21-28) Arterial Blood Base Excess 0 mmol/L (-3-3) FiO2 40 Glucose (Fingerstick) 158 mg/dL (70-99) 148 mg/dL (70-99) Test 06/20/19 21:23 06/21/19 00:13 06/21/19 04:20 06/21/19 08:20 Glucose (Fingerstick) 144 mg/dL (70-99) 130 mg/dL (70-99) White Blood Count 8.2 x10^3/uL (4.0-11.0) Red Blood Count 2.87 x10^6/uL (4.30-5.70) Hemoglobin 9.2 g/dL (13.0-17.5) Hematocrit 26.8 % (39.0-53.0) Mean Corpuscular Volume 93 fL (79-100) Mean Corpuscular Hemoglobin 32 pg (25-35) Mean Corpuscular Hemoglobin Concent 34 g/dL (31-37) Red Cell Distribution Width 14.6 % (11.5-14.5) Platelet Count 114 x10^3/uL (140-400) Neutrophils (%) (Auto) 81 % (31-73) Lymphocytes (%) (Auto) 12 % (24-48) Monocytes (%) (Auto) 6 % (0-9) Eosinophils (%) (Auto) 2 % (0-3) Basophils (%) (Auto) 0 % (0-3) Neutrophils # (Auto) 6.6 x10^3/uL (1.8-7.7) Lymphocytes # (Auto) 1.0 x10^3/uL (1.0-4.8) Monocytes # (Auto) 0.5 x10^3/uL (0.0-1.1) Eosinophils # (Auto) 0.2 x10^3/uL (0.0-0.7) Basophils # (Auto) 0.0 x10^3/uL (0.0-0.2) Sodium Level 137 mmol/L (136-145) Potassium Level 4.0 mmol/L (3.5-5.1) Chloride Level 106 mmol/L (98-107) Carbon Dioxide Level 29 mmol/L (21-32) Anion Gap 2 (6-14) Blood Urea Nitrogen 36 mg/dL (8-26) Creatinine 1.6 mg/dL (0.7-1.3) Estimated GFR (Cockcroft-Gault) 42.1 Glucose Level 134 mg/dL (70-99) Calcium Level 7.2 mg/dL (8.5-10.1) Phosphorus Level 2.4 mg/dL (2.6-4.7) Magnesium Level 1.9 mg/dL (1.8-2.4) O2 Saturation 96 % (92-99) Arterial Blood pH 7.37 (7.35-7.45) Arterial Blood pCO2 at Patient Temp 44 mmHg (35-46) Arterial Blood pO2 at Patient Temp 100 mmHg (65-108) Arterial Blood HCO3 24 mmol/L (21-28) Arterial Blood Base Excess -1 mmol/L (-3-3) FiO2 40 Laboratory Tests Test 06/20/19 17:29 06/20/19 21:23 06/21/19 00:13 06/21/19 04:20 Glucose (Fingerstick) 148 mg/dL (70-99) 144 mg/dL (70-99) 130 mg/dL (70-99) White Blood Count 8.2 x10^3/uL (4.0-11.0) Red Blood Count 2.87 x10^6/uL (4.30-5.70) Hemoglobin 9.2 g/dL (13.0-17.5) Hematocrit 26.8 % (39.0-53.0) Mean Corpuscular Volume 93 fL (79-100) Mean Corpuscular Hemoglobin 32 pg (25-35) Mean Corpuscular Hemoglobin Concent 34 g/dL (31-37) Red Cell Distribution Width 14.6 % (11.5-14.5) Platelet Count 114 x10^3/uL (140-400) Neutrophils (%) (Auto) 81 % (31-73) Lymphocytes (%) (Auto) 12 % (24-48) Monocytes (%) (Auto) 6 % (0-9) Eosinophils (%) (Auto) 2 % (0-3) Basophils (%) (Auto) 0 % (0-3) Neutrophils # (Auto) 6.6 x10^3/uL (1.8-7.7) Lymphocytes # (Auto) 1.0 x10^3/uL (1.0-4.8) Monocytes # (Auto) 0.5 x10^3/uL (0.0-1.1) Eosinophils # (Auto) 0.2 x10^3/uL (0.0-0.7) Basophils # (Auto) 0.0 x10^3/uL (0.0-0.2) Sodium Level 137 mmol/L (136-145) Potassium Level 4.0 mmol/L (3.5-5.1) Chloride Level 106 mmol/L (98-107) Carbon Dioxide Level 29 mmol/L (21-32) Anion Gap 2 (6-14) Blood Urea Nitrogen 36 mg/dL (8-26) Creatinine 1.6 mg/dL (0.7-1.3) Estimated GFR (Cockcroft-Gault) 42.1 Glucose Level 134 mg/dL (70-99) Calcium Level 7.2 mg/dL (8.5-10.1) Phosphorus Level 2.4 mg/dL (2.6-4.7) Magnesium Level 1.9 mg/dL (1.8-2.4) Test 06/21/19 08:20 O2 Saturation 96 % (92-99) Arterial Blood pH 7.37 (7.35-7.45) Arterial Blood pCO2 at Patient Temp 44 mmHg (35-46) Arterial Blood pO2 at Patient Temp 100 mmHg (65-108) Arterial Blood HCO3 24 mmol/L (21-28) Arterial Blood Base Excess -1 mmol/L (-3-3) FiO2 40 Medications Active Scripts Medications Dose Route/Sig Max Daily Dose Days Date Category Foltx Tablet (B12/Levomefolate Calcium/B-6) 1 Each Tablet 1 Each PO AFTRNOON 06/07/19 Reported Testosterone Cypionate 200 Mg/1 Ml Vial 1 Ml IM Q2WKS 06/07/19 Reported Novolog Mix 70-30 Flexpen Syrn (Insuln Asp Prt/Insulin Aspart) 100 Unit/1 Ml Insuln.pen 1 Unit SQ BIDACBL 06/07/19 Reported Lantus Solostar (Insulin Glargine,Hum.rec.anlog) 100 Unit/1 Ml Insuln.pen 30 Unit SQ QHS 06/07/19 Reported Nifedipine Er (Nifedipine) 60 Mg Tab.er.24 1 Tab PO DAILY 06/07/19 Reported Morphine Sulfate Er (Morphine Sulfate) 60 Mg Tablet.er 1 Tab PO BID 06/07/19 Reported Furosemide 40 Mg Tablet 40 Mg PO DAILY 06/07/19 Reported Finasteride 5 Mg Tablet 1 Tab PO DAILY 06/07/19 Reported Simvastatin 40 Mg Tablet 1 Tab PO QHS 06/07/19 Reported Metoprolol Succinate ( Xl ) (Metoprolol Succinate) 200 Mg Tab.er.24h 1 Tab PO DAILY 06/07/19 Reported Levothyroxine Sodium 175 Mcg Tablet 1 Tab PO DAILY 06/07/19 Reported Losartan-Hctz 100-12.5 Mg Tab (Losartan/Hydrochlorothiazide) 1 Each Tablet 1 Tab PO DAILY 06/07/19 Reported Comments CXR 06/21 reviewed no sig change, small right effusion Impression . 1. Acute Respiratory failure, multifactorial, includes septic shock, colonic ileus 2. septic shock 3. Erosive gastritis. 4. C-Diff 5. Coronary artery disease, status post coronary artery bypass grafting. 6, COLONIC ILEUS 7. abnormal cxr with atelectasis 8. SHOULDER ABSCESS 9. RENATA 10. severe PCM ID NOTE LUE abscess s/p 10 ml removal 06/13. group B strep -S/p Left shoulder open incision and drainage with arthrotomy, debridement of bone and bone cement, and joint irrigation 06/14 G B strep C. diff positive, 06/14 Plan . 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
[2019-06-21 12:25] LABS: BASE EXCESS ABG -1 mmol/L (-3-3); HCO3 ABG 24 mmol/L (21-28); PCO2 ABG 41 mmHg (35-46); PO2 ABG 130 mmHg (65-108); SAT O2 ABG 97 % (92-99)
[2019-06-21 12:31] LABS: FIO2 ABG 40
[2019-06-21 12:42] LABS: POTASSIUM 4.2 mmol/L (3.5-5.1)
[2019-06-21 12:43] LABS: PHOSPHORUS 2.3 mg/dL (2.6-4.7)
[2019-06-21] MEDS: TPN PER PHARMACY MC PRN (13:33)
--- NOTE | 2019-06-21 13:33 | NUR ---
Pharmacy TPN Dosing Note S: ROSLYN MOORE is a 78 year old M Currently receiving Central Continuous TPN started 06/15/19 B:Pertinent PMH: Duodenal ulcer, Ileus Height: 6 feet, 0 inches Weight: 118.476432 kg Current diet: NPO LABS: Sodium: 138 Potassium: 4.2 Chloride: 1.6 Calcium: 7.2 Corrected Calcium: 9.36 Magnesium: 2.0 CO2: 29 SCr: 1.6 Glucose: 118 Albumin: 1.3 AST: 16 ALT: 7 TPN FORMULA: TPN TYPE: Central Continuous AMINO ACIDS: 110 gm DEXTROSE: 195 gm LIPIDS: 20 gm SODIUM CHLORIDE: 100 mEq SODIUM ACETATE: mEq SODIUM PHOSPHATE: mmol POTASSIUM CHLORIDE: 95 mEq POTASSIUM ACETATE: mEq POTASSIUM PHOSPHATE: 20.4 mmol MAGNESIUM: 10 mEq CALCIUM: 10 mEq INSULIN: 10 units MULTIPLE VITAMIN: 10 ml TRACE ELEMENTS: 1 ml(s) TPN PLAN: Pt currently on CRRT, CVVHDF. Labs mostly WNL. Phos low, increased kphos by 6.8 mmol (10 meq K). Decreased volume by ~200 ml. Ten units insulin in bag, BG now controlled, will watch. No other changes, pt getting frequent labs. R: Continue TPN ABOVE. Will monitor electrolytes, glucose, and tolerance to TPN. AMBER KEENE [facility], 06/21/19 [id number]
[2019-06-21 18:44] LABS: PHOSPHORUS 2.3 mg/dL (2.6-4.7); POTASSIUM 4.3 mmol/L (3.5-5.1)
[2019-06-21] MEDS: SIMVASTATIN 40 MG TABLET. PO SCH (20:25)
[2019-06-21] MEDS: INSULIN GLARGINE SYRINGE. SQ SCH (20:28)
--- NOTE | 2019-06-21 21:15 | NUR ---
CRRT machine alarm reading extremely positive return pressure. Patient repositioned, sedated, return dialysis line flushed and return dialysis line switched to the red port without the alarm clearing. Abeba from [facility] dialysis notified and treatment stopped. Abeba spoke with Dr. Crespo and CRRT treatment will resume in am.
[2019-06-21] MEDS ORDERED: TOTAL PARENTERAL NUTRITION IV SCH ×11 (22:00)
[2019-06-21] MEDS ORDERED: [UNRECOGNIZED DRUG - OTHER] IV SCH ×11 (22:00)
[2019-06-21] MEDS ORDERED: DEXTROSE 70% IV SCH ×11 (22:00)
[2019-06-21] MEDS ORDERED: AMINO ACID IV SCH ×11 (22:00)
[2019-06-22] VITALS (22 sets, daily range): BP systolic 84–135; BP diastolic 47–90
[2019-06-22] MEDS: INSULIN LISPRO 300 UNITS/3 ML VIAL. SQ SCH ×4 (00:06→18:00)
[2019-06-22] MEDS: POTASSIUM CHLORIDE 20 MEQ in DIALYSIS SOLUTION BGK 0/2.5 5,000 ML IV SCH ×19 (00:06→10:48)
[2019-06-22] MEDS: DEXMEDETOMIDINE 400 MCG in IV NORMAL SALINE 100ML 96 ML IV PRN ×2 (05:13→18:34)
[2019-06-22] MEDS: IV 1/2 NORMAL SALINE 1,000 ML IV SCH (05:24)
[2019-06-22 05:31] LABS: HEMATOCRIT 24.7 % (39.0-53.0); HEMOGLOBIN 8.3 g/dL (13.0-17.5); RED BLOOD COUNT 2.6 x10^6/uL (4.30-5.70); RED CELL DISTRIBUTION WIDTH 14.8 % (11.5-14.5); WHITE BLOOD COUNT 9.1 x10^3/uL (4.0-11.0)
[2019-06-22] MEDS: LEVOTHYROXINE 175 MCG TABLET PO SCH (05:35)
[2019-06-22 05:58] LABS: CALCIUM 7.5 mg/dL (8.5-10.1); CREATININE 1.5 mg/dL (0.7-1.3); GFR 45.4; MAGNESIUM 2.1 mg/dL (1.8-2.4); PHOSPHORUS 2.8 mg/dL (2.6-4.7); POTASSIUM 4.7 mmol/L (3.5-5.1)
[2019-06-22 08:06] LABS: BASE EXCESS ABG -2 mmol/L (-3-3); HCO3 ABG 22 mmol/L (21-28); PCO2 ABG 36 mmHg (35-46); PO2 ABG 88 mmHg (65-108); SAT O2 ABG 96 % (92-99)
[2019-06-22 08:09] LABS: FIO2 ABG 40
[2019-06-22] MEDS: MORPHINE ER 30 MG TABLET.ER PO SCH ×2 (08:22→20:55)
[2019-06-22] MEDS: cefTRIAXone IV Push 2 GM VIAL. IVP SCH (08:48)
[2019-06-22] MEDS: PANTOPRAZOLE IV PUSH 40 MG VIAL. IVP SCH (08:48)
[2019-06-22] MEDS: HEPARIN for SUB-Q USE 5,000 UNIT/ML VIAL. SQ SCH ×2 (08:49→20:58)
[2019-06-22] MEDS: FINASTERIDE 5 MG TABLET. PO SCH (08:50)
[2019-06-22] MEDS: VITAMIN B COMPLEX TABLET. PO SCH (08:50)
[2019-06-22] MEDS: VANCOMYCIN 125 MG/2.5 ML ORAL SOLUTION. PO SCH ×4 (08:53→20:57)
[2019-06-22] MEDS: POTASSIUM CHLORIDE 15 MEQ in DIALYSIS SOLUTION BGK 0/2.5 5,000 ML IV SCH ×11 (08:54→23:47)
[2019-06-22] MEDS ORDERED: TESTOSTERONE CYPIONATE 200 MG/ML VIAL. IM SCH (09:00)
--- NOTE | 2019-06-22 09:21 | PDOC ---
Infectious Disease Note Subjective Subjective Remains intubated Sedated No fevers last 24 hours + diarrhea TPN GI bleed with coffee ground emesis ROS ROS unable to do Vital Sign Vital Signs Vital Signs Date Time Temp Pulse Resp B/P (MAP) Pulse Ox O2 Delivery O2 Flow Rate FiO2 06/22/19 08:57 100 2.0 06/22/19 08:00 62 20 111/69 (83) Ventilator 06/22/19 04:00 96.8 96.8 Physical Exam PHYSICAL EXAM GENERAL: Orally intubated and sedated HEENT: Pupils are equal, NGT, ETT NECK: Supple LUNGS: Course HEART: S1, S2. ABDOMEN: Obese, soft + BS, + rectal tube : Bledsoe EXTREMITIES: Generalized edema. Left shoulder incison well-approx/thiago. SKIN: Without signs of rash NEUROLOGIC: Sedated Temp HDC (06/15) [facility] PIV Labs Lab Laboratory Tests Test 06/21/19 12:15 06/21/19 12:20 06/21/19 18:00 06/21/19 18:49 Sodium Level 138 mmol/L (136-145) 139 mmol/L (136-145) Potassium Level 4.2 mmol/L (3.5-5.1) 4.3 mmol/L (3.5-5.1) Chloride Level 106 mmol/L (98-107) 107 mmol/L (98-107) Carbon Dioxide Level 29 mmol/L (21-32) 30 mmol/L (21-32) Anion Gap 3 (6-14) 2 (6-14) Phosphorus Level 2.3 mg/dL (2.6-4.7) 2.3 mg/dL (2.6-4.7) Magnesium Level 2.0 mg/dL (1.8-2.4) 2.0 mg/dL (1.8-2.4) O2 Saturation 97 % (92-99) Arterial Blood pH 7.39 (7.35-7.45) Arterial Blood pCO2 at Patient Temp 41 mmHg (35-46) Arterial Blood pO2 at Patient Temp 130 mmHg (65-108) Arterial Blood HCO3 24 mmol/L (21-28) Arterial Blood Base Excess -1 mmol/L (-3-3) FiO2 40 Glucose (Fingerstick) 173 mg/dL (70-99) Test 06/22/19 00:02 06/22/19 05:15 06/22/19 05:34 06/22/19 07:50 Glucose (Fingerstick) 175 mg/dL (70-99) 167 mg/dL (70-99) White Blood Count 9.1 x10^3/uL (4.0-11.0) Red Blood Count 2.60 x10^6/uL (4.30-5.70) Hemoglobin 8.3 g/dL (13.0-17.5) Hematocrit 24.7 % (39.0-53.0) Mean Corpuscular Volume 95 fL (79-100) Mean Corpuscular Hemoglobin 32 pg (25-35) Mean Corpuscular Hemoglobin Concent 34 g/dL (31-37) Red Cell Distribution Width 14.8 % (11.5-14.5) Platelet Count 104 x10^3/uL (140-400) Sodium Level 139 mmol/L (136-145) Potassium Level 4.7 mmol/L (3.5-5.1) Chloride Level 108 mmol/L (98-107) Carbon Dioxide Level 28 mmol/L (21-32) Anion Gap 3 (6-14) Blood Urea Nitrogen 35 mg/dL (8-26) Creatinine 1.5 mg/dL (0.7-1.3) Estimated GFR (Cockcroft-Gault) 45.4 Glucose Level 191 mg/dL (70-99) Calcium Level 7.5 mg/dL (8.5-10.1) Phosphorus Level 2.8 mg/dL (2.6-4.7) Magnesium Level 2.1 mg/dL (1.8-2.4) O2 Saturation 96 % (92-99) Arterial Blood pH 7.42 (7.35-7.45) Arterial Blood pCO2 at Patient Temp 36 mmHg (35-46) Arterial Blood pO2 at Patient Temp 88 mmHg (65-108) Arterial Blood HCO3 22 mmol/L (21-28) Arterial Blood Base Excess -2 mmol/L (-3-3) FiO2 40 Micro Microbiology 06/14/19 AFB Specimen Processing Tissue - Final, Resulted 06/14/19 Acid Fast Bacilli Culture, Resulted Pending 06/14/19 Gram Stain - Final, Resulted 06/14/19 Fungal Culture, Resulted Pending 06/14/19 Fungal Culture Result 1, Resulted Pending 06/13/19 Blood Culture - Preliminary, Resulted NO GROWTH AFTER 4 DAYS Objective Assessment LUE abscess s/p 10 ml removal 06/13. group B strep -S/p Left shoulder open incision and drainage with arthrotomy, debridement of bone and bone cement, and joint irrigation 06/14 G B strep C. 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
--- NOTE | 2019-06-22 10:01 | PDOC ---
SUBJECTIVE Subjective Patient intubated off sedation OBJECTIVE Objective General: intubated off sedation, opens eyes Respiratory: intubated Cardiovascular: Generalized edema Abdomen: edematous : edematous scrotum and penis, no erythema. urethral woodson in place draining clear yellow urine Vital Signs Vital Signs Date Time Temp Pulse Resp B/P (MAP) Pulse Ox O2 Delivery O2 Flow Rate FiO2 06/22/19 08:57 100 2.0 06/22/19 08:00 62 20 111/69 (83) 100 Ventilator 06/22/19 08:00 Mechanical Ventilator 06/22/19 07:24 100 Ventilator 06/22/19 07:00 62 20 111/69 (83) 100 Ventilator 06/22/19 06:00 62 20 116/69 (85) 100 Ventilator 06/22/19 05:46 100 Ventilator 06/22/19 05:00 56 16 96/58 (71) 100 Ventilator 06/22/19 04:00 Mechanical Ventilator 06/22/19 04:00 96.8 48 17 92/66 (75) 100 Ventilator 96.8 06/22/19 03:37 100 Ventilator 06/22/19 03:00 51 16 84/55 (65) 100 Ventilator 06/22/19 02:00 63 16 97/55 (69) 100 Ventilator 06/22/19 01:54 16 100 06/22/19 01:43 100 Ventilator 06/22/19 01:00 61 18 116/60 (78) 100 Ventilator 06/22/19 00:07 14 100 Ventilator 06/22/19 00:00 95.8 65 21 109/66 (80) 100 Ventilator 95.8 06/22/19 00:00 Mechanical Ventilator 06/21/19 23:17 100 Ventilator 06/21/19 23:00 50 16 120/61 (80) 100 Ventilator 06/21/19 22:00 50 14 122/63 (82) 100 Ventilator 06/21/19 21:40 100 Ventilator 06/21/19 21:00 55 14 119/55 (76) 100 Ventilator 06/21/19 20:00 Mechanical Ventilator 06/21/19 20:00 95.4 70 18 119/64 (82) 100 Ventilator 95.4 06/21/19 19:34 100 Ventilator 06/21/19 19:00 70 17 112/54 (73) 100 Ventilator 06/21/19 18:00 71 14 120/62 (81) 100 Ventilator 06/21/19 17:16 100 Ventilator 06/21/19 17:00 74 14 125/63 (83) 100 Ventilator 06/21/19 16:25 Ventilator 06/21/19 16:00 Mechanical Ventilator 06/21/19 16:00 79 14 114/69 (84) 100 Ventilator 06/21/19 15:16 100 Ventilator 06/21/19 15:00 68 14 112/60 (77) 100 Ventilator 06/21/19 14:17 100 Ventilator 2.0 06/21/19 14:00 68 14 111/60 (77) 100 Ventilator 06/21/19 13:00 67 14 98/55 (69) 100 Ventilator 06/21/19 12:58 100 Ventilator 06/21/19 12:22 100 Ventilator 06/21/19 12:00 Mechanical Ventilator 06/21/19 12:00 58 14 128/62 (84) 100 Ventilator 06/21/19 11:59 100 Ventilator 06/21/19 11:45 100 Ventilator 06/21/19 11:24 100 Ventilator 06/21/19 11:00 60 14 144/60 (88) 100 Ventilator 06/21/19 10:00 62 14 133/70 (91) 100 Ventilator I & O Intake and Output 06/22/19 07:00 Intake Total 1813.5 ml Output Total 773 ml Balance 1040.5 ml Intake Oral 0 ml IV Total 1813.5 ml Output Urine Total 173 ml Gastric Drainage Total 600 ml # Bowel Movements 2 PHYSICAL EXAM Physical Exam General: intubated off sedation, opens eyes Respiratory: intubated Cardiovascular: Generalized edema Abdomen: edematous : edematous scrotum and penis, no erythema. urethral woodson in place draining clear yellow urine ASSESSMENT/PLAN Assessment/Plan Urinary retention - continue woodson. Will re-evaluate when extubated US shows scrotal edema only - continue scrotal elevation Will continue to follow peripherally COMMENT Lab Laboratory Tests Test 06/21/19 12:15 06/21/19 12:20 06/21/19 18:00 06/21/19 18:49 Sodium Level 138 mmol/L (136-145) 139 mmol/L (136-145) Potassium Level 4.2 mmol/L (3.5-5.1) 4.3 mmol/L (3.5-5.1) Chloride Level 106 mmol/L (98-107) 107 mmol/L (98-107) Carbon Dioxide Level 29 mmol/L (21-32) 30 mmol/L (21-32) Anion Gap 3 (6-14) 2 (6-14) Phosphorus Level 2.3 mg/dL (2.6-4.7) 2.3 mg/dL (2.6-4.7) Magnesium Level 2.0 mg/dL (1.8-2.4) 2.0 mg/dL (1.8-2.4) O2 Saturation 97 % (92-99) Arterial Blood pH 7.39 (7.35-7.45) Arterial Blood pCO2 at Patient Temp 41 mmHg (35-46) Arterial Blood pO2 at Patient Temp 130 mmHg (65-108) Arterial Blood HCO3 24 mmol/L (21-28) Arterial Blood Base Excess -1 mmol/L (-3-3) FiO2 40 Glucose (Fingerstick) 173 mg/dL (70-99) Test 06/22/19 00:02 06/22/19 05:15 06/22/19 05:34 06/22/19 07:50 Glucose (Fingerstick) 175 mg/dL (70-99) 167 mg/dL (70-99) White Blood Count 9.1 x10^3/uL (4.0-11.0) Red Blood Count 2.60 x10^6/uL (4.30-5.70) Hemoglobin 8.3 g/dL (13.0-17.5) Hematocrit 24.7 % (39.0-53.0) Mean Corpuscular Volume 95 fL (79-100) Mean Corpuscular Hemoglobin 32 pg (25-35) Mean Corpuscular Hemoglobin Concent 34 g/dL (31-37) Red Cell Distribution Width 14.8 % (11.5-14.5) Platelet Count 104 x10^3/uL (140-400) Sodium Level 139 mmol/L (136-145) Potassium Level 4.7 mmol/L (3.5-5.1) Chloride Level 108 mmol/L (98-107) Carbon Dioxide Level 28 mmol/L (21-32) Anion Gap 3 (6-14) Blood Urea Nitrogen 35 mg/dL (8-26) Creatinine 1.5 mg/dL (0.7-1.3) Estimated GFR (Cockcroft-Gault) 45.4 Glucose Level 191 mg/dL (70-99) Calcium Level 7.5 mg/dL (8.5-10.1) Phosphorus Level 2.8 mg/dL (2.6-4.7) Magnesium Level 2.1 mg/dL (1.8-2.4) O2 Saturation 96 % (92-99) Arterial Blood pH 7.42 (7.35-7.45) Arterial Blood pCO2 at Patient Temp 36 mmHg (35-46) Arterial Blood pO2 at Patient Temp 88 mmHg (65-108) Arterial Blood HCO3 22 mmol/L (21-28) Arterial Blood Base Excess -2 mmol/L (-3-3) FiO2 40 Imaging Scrotal US 06/19/19 IMPRESSION: 1. Severe scrotal edema. Recommend continued clinical follow-up. 2. Otherwise, unremarkable testicular ultrasound.. OSKAR BAGLEY Jun 22, 2019 10:01
--- NOTE | 2019-06-22 10:01 | PDOC ---
SUBJECTIVE ROS Intubated , Stable OBJECTIVE Vital Signs Vital Signs Date Time Temp Pulse Resp B/P (MAP) Pulse Ox O2 Delivery O2 Flow Rate FiO2 06/22/19 08:57 100 2.0 06/22/19 08:00 62 20 111/69 (83) Ventilator 06/22/19 04:00 96.8 96.8 I & 0 Intake and Output 06/22/19 07:00 Intake Total 1813.5 ml Output Total 773 ml Balance 1040.5 ml Intake Oral 0 ml IV Total 1813.5 ml Output Urine Total 173 ml Gastric Drainage Total 600 ml # Bowel Movements 2 PHYSICAL EXAM Physical Exam GENERAL: Intubated HEENT: Intubated NECK: Supple LUNGS: CTA ant HEART: S1, S2. ABDOMEN: soft + BS, + rectal tube : Bledsoe EXTREMITIES: Edema 2+ has a right hand deformity. His left shoulder is dressed. 2 plus edema. Left heel protector. SKIN: No rash. NEUROLOGIC: awake Temp HDC (06/15) DIAGNOSIS/ASSESSMENT Assessment & Plan RENATA-ATN.requiring HD, Switched to CRRT on 06/20 mostly for fluid removal Tolerating well , continue as ordered, Replace e-lytes per Protocol Metabolic acidosis- resolved Hyponatremia-resolved Hypokalemia- K normal CKD stage 3- Cr Prob 1.5 HypoAlbuminemia - severe Hypotension- On vasopressin BP meds held Urinary retention- Flomax on Hold due to Low BP LUE abscess s/p Left shoulder open incision and drainage with arthrotomy, debridement of bone and bone cement, and joint irrigation 06/14 group B strep Post op resp failure - intubated - Pulm following C. diff positive, 06/14 Erosive Gastritis s/p EGD 06/08 Anemia CAD - Cardiology following Discussed with RN COMMENT/RELEVANT DATA Meds Current Medications Medications (Trade) Dose Ordered Sig/Lauren Start Time Stop Time Status Last Admin Dose Admin Albumin Human 100 ml @ 100 mls/hr 1X ONCE 06/21/19 08:15 06/21/19 09:14 DC 06/21/19 08:57 100 MLS/HR Amino Acids/ Electrolytes/ Dextrose 1,000 ml @ 80 mls/hr [id number] 06/14/19 10:30 06/15/19 21:59 DC 06/15/19 16:23 80 MLS/HR Bisacodyl (Dulcolax Supp) 10 mg 1X ONCE 06/07/19 17:45 06/07/19 17:46 DC 06/07/19 21:40 10 MG Bisacodyl (Dulcolax Tab) 5 mg PRN DAILY PRN 06/11/19 15:45 06/20/19 11:31 DC Bupivacaine HCl/ Epinephrine Bitart (Sensorcaine-Epi 0.25%-1:[id number] Mpf) 30 ml 1X ONCE 06/14/19 17:45 06/14/19 17:46 Cancel Ceftriaxone Sodium (Rocephin) 2 gm Q24H 06/19/19 09:00 06/22/19 08:57 2 GM Clindamycin Phosphate 50 ml @ As Directed STK-MED ONCE 06/14/19 18:07 06/14/19 18:07 DC Daptomycin 560 mg/ Sodium Chloride 50 ml @ 100 mls/hr Q48H 06/15/19 14:00 06/18/19 07:56 DC 06/17/19 14:29 100 MLS/HR Dexamethasone Sodium Phosphate (Decadron) 4 mg STK-MED ONCE 06/14/19 16:17 06/14/19 16:17 DC Dexmedetomidine HCl 400 mcg/ Sodium Chloride 100 ml @ 5.58 mls/hr CONT PRN 06/20/19 16:15 06/22/19 05:13 5.58 MLS/HR Dextrose 250 ml PRN Q15MIN PRN 06/09/19 11:45 06/09/19 15:19 DC Dextrose (Dextrose 50%-Water Syringe) 12.5 gm PRN Q15MIN PRN 06/09/19 11:45 Diphenhydramine HCl (Benadryl) 25 mg 1X PRN PRN 06/20/19 07:30 06/21/19 07:29 DC Ephedrine Sulfate (ePHEDrine PF IN SALINE SYRINGE) 50 mg STK-MED ONCE 06/14/19 19:21 06/14/19 19:21 DC Famotidine (Pepcid Vial) 20 mg STK-MED ONCE 06/14/19 16:17 06/14/19 16:17 DC Fentanyl Citrate (Fentanyl 2ml Vial) 50 mcg PRN Q1HR PRN 06/20/19 16:15 Finasteride (Proscar) 5 mg DAILY 06/12/19 12:00 06/13/19 09:39 DC Furosemide (Lasix) 40 mg DAILY 06/08/19 12:00 06/14/19 13:01 DC 06/12/19 08:36 40 MG Heparin Sodium (Porcine) (Heparin Sodium) 5,000 unit Q12HR 06/19/19 14:00 06/22/19 08:57 5,000 UNIT Hydromorphone HCl (Dilaudid) 2 mg PRN Q3HRS PRN 06/07/19 22:00 06/14/19 23:55 DC 06/14/19 12:39 2 MG Info (PHARMACY MONITORING -- do not chart) 1 each PRN DAILY PRN 06/20/19 07:30 Info (Tpn Per Pharmacy) 1 each PRN DAILY PRN 06/15/19 11:30 06/21/19 13:33 1 EACH Insulin Glargine (Lantus Syringe) 30 unit QHS 06/08/19 21:00 06/21/19 20:29 30 UNIT Insulin Human Lispro (HumaLOG) 0-9 UNITS Q6HRS 06/16/19 12:00 06/22/19 05:40 4 UNITS Ketamine HCl (Ketamine) 50 mg STK-MED ONCE 06/14/19 17:03 06/14/19 17:03 DC Levothyroxine Sodium (Synthroid) 175 mcg DAILY06 06/08/19 12:00 06/22/19 05:40 175 MCG Lidocaine HCl (Lidocaine Pf 2% Vial) 5 ml STK-MED ONCE 06/14/19 16:17 06/14/19 16:17 DC Lidocaine/Sodium Bicarbonate (Buffered Lidocaine 1%) 3 ml 1X ONCE 06/15/19 11:00 06/15/19 11:01 DC Lorazepam (Ativan) 0.5 mg PRN Q6HRS PRN 06/07/19 18:00 06/07/19 18:14 DC Losartan Potassium (Cozaar) 100 mg DAILY 06/08/19 12:00 06/14/19 13:01 DC 06/12/19 08:36 100 MG Magnesium Sulfate 50 ml @ 25 mls/hr 1X ONCE 06/16/19 08:30 06/16/19 10:29 DC 06/16/19 08:27 25 MLS/HR Meropenem 1 gm/ Sodium Chloride 100 ml @ 200 mls/hr DAILY 06/15/19 09:00 06/19/19 07:22 DC 06/18/19 10:55 200 MLS/HR Methylnaltrexone Reeder (Relistor) 6 mg 1X ONCE 06/14/19 14:00 06/14/19 14:01 DC 06/14/19 14:15 6 MG Metoprolol Succinate (Toprol Xl) 200 mg DAILY 06/08/19 12:00 06/14/19 13:01 DC 06/12/19 08:36 200 MG Metronidazole 100 ml @ 100 mls/hr Q8HRS 06/15/19 17:30 06/19/19 07:22 DC 06/19/19 06:24 100 MLS/HR Midazolam HCl 100 ml @ 0 mls/hr CONT PRN 06/15/19 13:00 06/20/19 04:10 7 MLS/HR Morphine Sulfate (Ms Contin) 60 mg BID 06/08/19 12:00 06/20/19 11:33 60 MG Nicotine (Nicoderm Cq 21mg) 1 patch PRN DAILY PRN 06/07/19 18:00 06/07/19 18:14 DC Nifedipine (Procardia Xl) 60 mg DAILY 06/08/19 12:00 06/14/19 13:01 DC 06/12/19 08:36 60 MG Non-Formulary Medication (Insuln Asp Prt/ Insulin Aspart (Novolog Mix 70-30 Flexpen Syrn)) 1 unit BIDACBL 06/08/19 11:30 06/08/19 19:34 DC Norepinephrine Bitartrate 250 ml @ 17.398 mls/ hr CONT PRN 06/14/19 14:30 06/18/19 17:55 34.796 MLS/HR Ondansetron HCl (Zofran) 4 mg STK-MED ONCE 06/14/19 16:17 06/14/19 16:17 DC Pantoprazole Sodium (PROTONIX VIAL for IV PUSH) 40 mg DAILYAC 06/14/19 07:30 06/22/19 08:57 40 MG Pantoprazole Sodium (Protonix) 40 mg DAILYAC 06/12/19 07:30 06/13/19 13:27 DC 06/12/19 08:36 40 MG Phenylephrine HCl (PHENYLEPHRINE in 0.9% NACL PF) 1 mg STK-MED ONCE 06/14/19 17:03 06/14/19 17:04 DC Polyethylene Glycol (miraLAX PACKET) 17 gm PRN DAILY PRN 06/11/19 15:45 06/20/19 11:31 DC Potassium Chloride 15 meq/ Bicarbonate Dialysis Soln w/ out KCl 5,007.5 ml @ 1,500 mls/ hr Q3H21M 06/22/19 08:00 06/22/19 08:57 1,500 MLS/HR Potassium Chloride 20 meq/ Bicarbonate Dialysis Soln w/ out KCl 5,010 ml @ 1,500 mls/hr Q3H21M 06/20/19 18:00 06/22/19 11:00 06/21/19 18:05 1,500 MLS/HR Propofol 100 ml @ 0 mls/hr CONT PRN 06/14/19 20:00 06/15/19 10:33 8.351 MLS/HR Ringer's Solution 1,000 ml @ 75 mls/hr [id number] 06/08/19 09:15 06/09/19 08:01 DC 06/08/19 14:01 75 MLS/HR Rocuronium Reeder (Zemuron) 50 mg STK-MED ONCE 06/14/19 16:32 06/14/19 16:32 DC Simvastatin (Zocor) 40 mg QHS 06/08/19 21:00 06/21/19 20:29 40 MG Sodium Bicarbonate 50 meq/Sodium Chloride 1,050 ml @ 125 mls/hr Q8H24M 06/15/19 10:15 06/16/19 18:21 DC 06/16/19 09:26 125 MLS/HR Sodium Chloride 90 meq/Potassium Chloride 50 meq/ Magnesium Sulfate 10 meq/Calcium Gluconate 10 meq/ Multivitamins 10 ml/Chromium/ Copper/Manganese/ Seleni/Zn 1 ml/ Total Parenteral Nutrition/Amino Acids/Dextrose 1,512 ml @ 63 mls/hr TPN CONT 06/15/19 22:00 06/16/19 21:59 DC 06/16/19 00:19 63 MLS/HR Sodium Chloride 90 meq/Potassium Chloride 50 meq/ Magnesium Sulfate 10 meq/Calcium Gluconate 10 meq/ Multivitamins 10 ml/Chromium/ Copper/Manganese/ Seleni/Zn 1 ml/ Total Parenteral Nutrition/Amino Acids/Dextrose/ Fat Emulsion Intravenous 1,512 ml @ 63 mls/hr TPN CONT 06/16/19 22:00 06/17/19 21:59 DC 06/16/19 22:43 63 MLS/HR Sodium Chloride 90 meq/Potassium Chloride 50 meq/ Potassium Phosphate 13.6 mmol/Magnesium Sulfate 10 meq/ Calcium Gluconate 10 meq/ Multivitamins 10 ml/Chromium/ Copper/Manganese/ Seleni/Zn 1 ml/ Total Parenteral Nutrition/Amino Acids/Dextrose/ Fat Emulsion Intravenous 1,512 ml @ 63 mls/hr TPN CONT 06/17/19 22:00 06/18/19 21:59 DC 06/17/19 21:48 63 MLS/HR Sodium Chloride 90 meq/Potassium Chloride 70 meq/ Potassium Phosphate 13.6 mmol/Magnesium Sulfate 10 meq/ Calcium Gluconate 10 meq/ Multivitamins 10 ml/Chromium/ Copper/Manganese/ Seleni/Zn 1 ml/ Total Parenteral Nutrition/Amino Acids/Dextrose/ Fat Emulsion Intravenous 1,512 ml @ 63 mls/hr TPN CONT 06/18/19 22:00 06/19/19 21:59 DC 06/18/19 22:59 63 MLS/HR Sodium Chloride 90 meq/Potassium Chloride 85 meq/ Potassium Phosphate 13.6 mmol/Magnesium Sulfate 10 meq/ Calcium Gluconate 10 meq/ Multivitamins 10 ml/Chromium/ Copper/Manganese/ Seleni/Zn 1 ml/ Insulin Human Regular 10 unit/ Total Parenteral Nutrition/Amino Acids/Dextrose/ Fat Emuls... 1,512 ml @ 63 mls/hr TPN CONT 06/19/19 22:00 06/20/19 21:59 DC 06/19/19 22:27 63 MLS/HR Sodium Chloride 100 meq/Potassium Chloride 95 meq/ Potassium Phosphate 13.6 mmol/Magnesium Sulfate 10 meq/ Calcium Gluconate 10 meq/ Multivitamins 10 ml/Chromium/ Copper/Manganese/ Seleni/Zn 1 ml/ Insulin Human Regular 10 unit/ Total Parenteral Nutrition/Amino Acids/Dextrose/ Fat Emuls... 1,512 ml @ 63 mls/hr TPN CONT 06/20/19 22:00 06/21/19 21:59 DC 06/20/19 21:54 63 MLS/HR Sodium Chloride 100 meq/Potassium Chloride 95 meq/ Potassium Phosphate 20.4 mmol/Magnesium Sulfate 10 meq/ Calcium Gluconate 10 meq/ Multivitamins 10 ml/Chromium/ Copper/Manganese/ Seleni/Zn 1 ml/ Insulin Human Regular 10 unit/ Total Parenteral Nutrition/Amino Acids/Dextrose/ Fat Emuls... 1,300 ml @ 54.167 mls/ hr TPN CONT 06/21/19 22:00 06/22/19 21:59 06/21/19 22:12 54.167 MLS/HR Succinylcholine Chloride (Anectine) 200 mg STK-MED ONCE 06/14/19 16:17 06/14/19 16:17 DC Tamsulosin HCl (Flomax) 0.4 mg QHS 06/12/19 21:00 06/14/19 13:01 DC 06/12/19 21:26 0.4 MG Testosterone Cypionate (Depo-Testosterone) 200 mg Q2WKS 06/22/19 09:00 Vancomycin HCl (Vancomycin Oral Solution) 125 mg [id number] 06/16/19 09:00 06/22/19 08:57 125 MG Vasopressin 40 unit/Dextrose 102 ml @ 6 mls/hr CONT PRN 06/15/19 14:30 06/21/19 18:38 6 MLS/HR Vitamin B Complex (Bud B) 1 tab DAILY 06/08/19 12:00 06/22/19 08:57 1 TAB Lab Laboratory Tests Test 06/21/19 12:15 06/21/19 12:20 06/21/19 18:00 06/21/19 18:49 Sodium Level 138 mmol/L (136-145) 139 mmol/L (136-145) Potassium Level 4.2 mmol/L (3.5-5.1) 4.3 mmol/L (3.5-5.1) Chloride Level 106 mmol/L (98-107) 107 mmol/L (98-107) Carbon Dioxide Level 29 mmol/L (21-32) 30 mmol/L (21-32) Anion Gap 3 (6-14) 2 (6-14) Phosphorus Level 2.3 mg/dL (2.6-4.7) 2.3 mg/dL (2.6-4.7) Magnesium Level 2.0 mg/dL (1.8-2.4) 2.0 mg/dL (1.8-2.4) O2 Saturation 97 % (92-99) Arterial Blood pH 7.39 (7.35-7.45) Arterial Blood pCO2 at Patient Temp 41 mmHg (35-46) Arterial Blood pO2 at Patient Temp 130 mmHg (65-108) Arterial Blood HCO3 24 mmol/L (21-28) Arterial Blood Base Excess -1 mmol/L (-3-3) FiO2 40 Glucose (Fingerstick) 173 mg/dL (70-99) Test 06/22/19 00:02 06/22/19 05:15 06/22/19 05:34 06/22/19 07:50 Glucose (Fingerstick) 175 mg/dL (70-99) 167 mg/dL (70-99) White Blood Count 9.1 x10^3/uL (4.0-11.0) Red Blood Count 2.60 x10^6/uL (4.30-5.70) Hemoglobin 8.3 g/dL (13.0-17.5) Hematocrit 24.7 % (39.0-53.0) Mean Corpuscular Volume 95 fL (79-100) Mean Corpuscular Hemoglobin 32 pg (25-35) Mean Corpuscular Hemoglobin Concent 34 g/dL (31-37) Red Cell Distribution Width 14.8 % (11.5-14.5) Platelet Count 104 x10^3/uL (140-400) Sodium Level 139 mmol/L (136-145) Potassium Level 4.7 mmol/L (3.5-5.1) Chloride Level 108 mmol/L (98-107) Carbon Dioxide Level 28 mmol/L (21-32) Anion Gap 3 (6-14) Blood Urea Nitrogen 35 mg/dL (8-26) Creatinine 1.5 mg/dL (0.7-1.3) Estimated GFR (Cockcroft-Gault) 45.4 Glucose Level 191 mg/dL (70-99) Calcium Level 7.5 mg/dL (8.5-10.1) Phosphorus Level 2.8 mg/dL (2.6-4.7) Magnesium Level 2.1 mg/dL (1.8-2.4) O2 Saturation 96 % (92-99) Arterial Blood pH 7.42 (7.35-7.45) Arterial Blood pCO2 at Patient Temp 36 mmHg (35-46) Arterial Blood pO2 at Patient Temp 88 mmHg (65-108) Arterial Blood HCO3 22 mmol/L (21-28) Arterial Blood Base Excess -2 mmol/L (-3-3) FiO2 40 Results All relevant outside records, renal labs, imaging studies, telemetry/EKG's were reviewed. GUNNAR IGLESIAS MD Jun 22, 2019 10:01
--- NOTE | 2019-06-22 10:21 | PDOC ---
Objective: Objective: D/w nurse earlier this morning in ICU - increased NG output overnight and this morning, now vomiting - emesis is dark w/ red tinge, abd might be more firm. Vital Signs: Vital Signs Date Time Temp Pulse Resp B/P (MAP) Pulse Ox O2 Delivery O2 Flow Rate FiO2 06/22/19 08:57 100 2.0 06/22/19 08:00 62 20 111/69 (83) Ventilator 06/22/19 04:00 96.8 96.8 Labs: Laboratory Tests Test 06/21/19 12:15 06/21/19 12:20 06/21/19 18:00 06/21/19 18:49 Sodium Level 138 mmol/L 139 mmol/L Potassium Level 4.2 mmol/L 4.3 mmol/L Chloride Level 106 mmol/L 107 mmol/L Carbon Dioxide Level 29 mmol/L 30 mmol/L Anion Gap 3 2 Phosphorus Level 2.3 mg/dL 2.3 mg/dL Magnesium Level 2.0 mg/dL 2.0 mg/dL O2 Saturation 97 % Arterial Blood pH 7.39 Arterial Blood pCO2 at Patient Temp 41 mmHg Arterial Blood pO2 at Patient Temp 130 mmHg Arterial Blood HCO3 24 mmol/L Arterial Blood Base Excess -1 mmol/L FiO2 40 Glucose (Fingerstick) 173 mg/dL Test 06/22/19 00:02 06/22/19 05:15 06/22/19 05:34 06/22/19 07:50 Glucose (Fingerstick) 175 mg/dL 167 mg/dL White Blood Count 9.1 x10^3/uL Red Blood Count 2.60 x10^6/uL Hemoglobin 8.3 g/dL Hematocrit 24.7 % Mean Corpuscular Volume 95 fL Mean Corpuscular Hemoglobin 32 pg Mean Corpuscular Hemoglobin Concent 34 g/dL Red Cell Distribution Width 14.8 % Platelet Count 104 x10^3/uL Sodium Level 139 mmol/L Potassium Level 4.7 mmol/L Chloride Level 108 mmol/L Carbon Dioxide Level 28 mmol/L Anion Gap 3 Blood Urea Nitrogen 35 mg/dL Creatinine 1.5 mg/dL Estimated GFR (Cockcroft-Gault) 45.4 Glucose Level 191 mg/dL Calcium Level 7.5 mg/dL Phosphorus Level 2.8 mg/dL Magnesium Level 2.1 mg/dL O2 Saturation 96 % Arterial Blood pH 7.42 Arterial Blood pCO2 at Patient Temp 36 mmHg Arterial Blood pO2 at Patient Temp 88 mmHg Arterial Blood HCO3 22 mmol/L Arterial Blood Base Excess -2 mmol/L FiO2 40 PE: GEN: CRRT - dark emesis on chin/lainez and in NG canister LUNGS: intubated ABD: ?more distended, hernia NEURO/PSYCH: lightly sedated A/P: Vomiting - 'scoped earlier this admission LUE abscess, resp failure, renal failure C Diff - on vanco Erosive esophagitis, duodenal ulcer - on PPI -- Reviewed w/ Dr. Oliveira - check KUB, continue PPI. GERALD SMITH Jun 22, 2019 10:21
--- NOTE | 2019-06-22 10:34 | PDOC ---
PULMONARY PROGRESS NOTES Subjective HAD AN EPISODE OF EMESIS THIS AM/ SOME ASPIRATION DID NOT DO WELL WITH CPAP YESTERDAY off levophed PT ON AC MODE FIO2 DOWN TO 40 % STILL on vasopressin Vitals Vital Signs Date Time Temp Pulse Resp B/P (MAP) Pulse Ox O2 Delivery O2 Flow Rate FiO2 06/22/19 08:57 100 2.0 06/22/19 08:00 62 20 111/69 (83) Ventilator 06/22/19 04:00 96.8 96.8 Lungs: Other (few rhonchi) Cardiovascular: S1, S2 Abdomen: Other (distended, firm, abdominal wall hernia) Extremities: Other (2+edema, scrotal edema) Skin: Warm Labs Laboratory Tests Test 06/20/19 11:30 06/20/19 17:29 06/20/19 21:23 06/21/19 00:13 Glucose (Fingerstick) 158 mg/dL (70-99) 148 mg/dL (70-99) 144 mg/dL (70-99) 130 mg/dL (70-99) Test 06/21/19 04:20 06/21/19 05:48 06/21/19 08:20 06/21/19 12:15 White Blood Count 8.2 x10^3/uL (4.0-11.0) Red Blood Count 2.87 x10^6/uL (4.30-5.70) Hemoglobin 9.2 g/dL (13.0-17.5) Hematocrit 26.8 % (39.0-53.0) Mean Corpuscular Volume 93 fL (79-100) Mean Corpuscular Hemoglobin 32 pg (25-35) Mean Corpuscular Hemoglobin Concent 34 g/dL (31-37) Red Cell Distribution Width 14.6 % (11.5-14.5) Platelet Count 114 x10^3/uL (140-400) Neutrophils (%) (Auto) 81 % (31-73) Lymphocytes (%) (Auto) 12 % (24-48) Monocytes (%) (Auto) 6 % (0-9) Eosinophils (%) (Auto) 2 % (0-3) Basophils (%) (Auto) 0 % (0-3) Neutrophils # (Auto) 6.6 x10^3/uL (1.8-7.7) Lymphocytes # (Auto) 1.0 x10^3/uL (1.0-4.8) Monocytes # (Auto) 0.5 x10^3/uL (0.0-1.1) Eosinophils # (Auto) 0.2 x10^3/uL (0.0-0.7) Basophils # (Auto) 0.0 x10^3/uL (0.0-0.2) Sodium Level 137 mmol/L (136-145) 138 mmol/L (136-145) Potassium Level 4.0 mmol/L (3.5-5.1) 4.2 mmol/L (3.5-5.1) Chloride Level 106 mmol/L (98-107) 106 mmol/L (98-107) Carbon Dioxide Level 29 mmol/L (21-32) 29 mmol/L (21-32) Anion Gap 2 (6-14) 3 (6-14) Blood Urea Nitrogen 36 mg/dL (8-26) Creatinine 1.6 mg/dL (0.7-1.3) Estimated GFR (Cockcroft-Gault) 42.1 Glucose Level 134 mg/dL (70-99) Calcium Level 7.2 mg/dL (8.5-10.1) Phosphorus Level 2.4 mg/dL (2.6-4.7) 2.3 mg/dL (2.6-4.7) Magnesium Level 1.9 mg/dL (1.8-2.4) 2.0 mg/dL (1.8-2.4) Glucose (Fingerstick) 118 mg/dL (70-99) O2 Saturation 96 % (92-99) Arterial Blood pH 7.37 (7.35-7.45) Arterial Blood pCO2 at Patient Temp 44 mmHg (35-46) Arterial Blood pO2 at Patient Temp 100 mmHg (65-108) Arterial Blood HCO3 24 mmol/L (21-28) Arterial Blood Base Excess -1 mmol/L (-3-3) FiO2 40 Test 06/21/19 12:20 06/21/19 18:00 06/21/19 18:49 06/22/19 00:02 O2 Saturation 97 % (92-99) Arterial Blood pH 7.39 (7.35-7.45) Arterial Blood pCO2 at Patient Temp 41 mmHg (35-46) Arterial Blood pO2 at Patient Temp 130 mmHg (65-108) Arterial Blood HCO3 24 mmol/L (21-28) Arterial Blood Base Excess -1 mmol/L (-3-3) FiO2 40 Sodium Level 139 mmol/L (136-145) Potassium Level 4.3 mmol/L (3.5-5.1) Chloride Level 107 mmol/L (98-107) Carbon Dioxide Level 30 mmol/L (21-32) Anion Gap 2 (6-14) Phosphorus Level 2.3 mg/dL (2.6-4.7) Magnesium Level 2.0 mg/dL (1.8-2.4) Glucose (Fingerstick) 173 mg/dL (70-99) 175 mg/dL (70-99) Test 06/22/19 05:15 06/22/19 05:34 06/22/19 07:50 White Blood Count 9.1 x10^3/uL (4.0-11.0) Red Blood Count 2.60 x10^6/uL (4.30-5.70) Hemoglobin 8.3 g/dL (13.0-17.5) Hematocrit 24.7 % (39.0-53.0) Mean Corpuscular Volume 95 fL (79-100) Mean Corpuscular Hemoglobin 32 pg (25-35) Mean Corpuscular Hemoglobin Concent 34 g/dL (31-37) Red Cell Distribution Width 14.8 % (11.5-14.5) Platelet Count 104 x10^3/uL (140-400) Sodium Level 139 mmol/L (136-145) Potassium Level 4.7 mmol/L (3.5-5.1) Chloride Level 108 mmol/L (98-107) Carbon Dioxide Level 28 mmol/L (21-32) Anion Gap 3 (6-14) Blood Urea Nitrogen 35 mg/dL (8-26) Creatinine 1.5 mg/dL (0.7-1.3) Estimated GFR (Cockcroft-Gault) 45.4 Glucose Level 191 mg/dL (70-99) Calcium Level 7.5 mg/dL (8.5-10.1) Phosphorus Level 2.8 mg/dL (2.6-4.7) Magnesium Level 2.1 mg/dL (1.8-2.4) Glucose (Fingerstick) 167 mg/dL (70-99) O2 Saturation 96 % (92-99) Arterial Blood pH 7.42 (7.35-7.45) Arterial Blood pCO2 at Patient Temp 36 mmHg (35-46) Arterial Blood pO2 at Patient Temp 88 mmHg (65-108) Arterial Blood HCO3 22 mmol/L (21-28) Arterial Blood Base Excess -2 mmol/L (-3-3) FiO2 40 Laboratory Tests Test 06/21/19 12:15 06/21/19 12:20 06/21/19 18:00 06/21/19 18:49 Sodium Level 138 mmol/L (136-145) 139 mmol/L (136-145) Potassium Level 4.2 mmol/L (3.5-5.1) 4.3 mmol/L (3.5-5.1) Chloride Level 106 mmol/L (98-107) 107 mmol/L (98-107) Carbon Dioxide Level 29 mmol/L (21-32) 30 mmol/L (21-32) Anion Gap 3 (6-14) 2 (6-14) Phosphorus Level 2.3 mg/dL (2.6-4.7) 2.3 mg/dL (2.6-4.7) Magnesium Level 2.0 mg/dL (1.8-2.4) 2.0 mg/dL (1.8-2.4) O2 Saturation 97 % (92-99) Arterial Blood pH 7.39 (7.35-7.45) Arterial Blood pCO2 at Patient Temp 41 mmHg (35-46) Arterial Blood pO2 at Patient Temp 130 mmHg (65-108) Arterial Blood HCO3 24 mmol/L (21-28) Arterial Blood Base Excess -1 mmol/L (-3-3) FiO2 40 Glucose (Fingerstick) 173 mg/dL (70-99) Test 06/22/19 00:02 06/22/19 05:15 06/22/19 05:34 06/22/19 07:50 Glucose (Fingerstick) 175 mg/dL (70-99) 167 mg/dL (70-99) White Blood Count 9.1 x10^3/uL (4.0-11.0) Red Blood Count 2.60 x10^6/uL (4.30-5.70) Hemoglobin 8.3 g/dL (13.0-17.5) Hematocrit 24.7 % (39.0-53.0) Mean Corpuscular Volume 95 fL (79-100) Mean Corpuscular Hemoglobin 32 pg (25-35) Mean Corpuscular Hemoglobin Concent 34 g/dL (31-37) Red Cell Distribution Width 14.8 % (11.5-14.5) Platelet Count 104 x10^3/uL (140-400) Sodium Level 139 mmol/L (136-145) Potassium Level 4.7 mmol/L (3.5-5.1) Chloride Level 108 mmol/L (98-107) Carbon Dioxide Level 28 mmol/L (21-32) Anion Gap 3 (6-14) Blood Urea Nitrogen 35 mg/dL (8-26) Creatinine 1.5 mg/dL (0.7-1.3) Estimated GFR (Cockcroft-Gault) 45.4 Glucose Level 191 mg/dL (70-99) Calcium Level 7.5 mg/dL (8.5-10.1) Phosphorus Level 2.8 mg/dL (2.6-4.7) Magnesium Level 2.1 mg/dL (1.8-2.4) O2 Saturation 96 % (92-99) Arterial Blood pH 7.42 (7.35-7.45) Arterial Blood pCO2 at Patient Temp 36 mmHg (35-46) Arterial Blood pO2 at Patient Temp 88 mmHg (65-108) Arterial Blood HCO3 22 mmol/L (21-28) Arterial Blood Base Excess -2 mmol/L (-3-3) FiO2 40 Medications Active Scripts Medications Dose Route/Sig Max Daily Dose Days Date Category Foltx Tablet (B12/Levomefolate Calcium/B-6) 1 Each Tablet 1 Each PO AFTRNOON 06/07/19 Reported Testosterone Cypionate 200 Mg/1 Ml Vial 1 Ml IM Q2WKS 06/07/19 Reported Novolog Mix 70-30 Flexpen Syrn (Insuln Asp Prt/Insulin Aspart) 100 Unit/1 Ml Insuln.pen 1 Unit SQ BIDACBL 06/07/19 Reported Lantus Solostar (Insulin Glargine,Hum.rec.anlog) 100 Unit/1 Ml Insuln.pen 30 Unit SQ QHS 06/07/19 Reported Nifedipine Er (Nifedipine) 60 Mg Tab.er.24 1 Tab PO DAILY 06/07/19 Reported Morphine Sulfate Er (Morphine Sulfate) 60 Mg Tablet.er 1 Tab PO BID 06/07/19 Reported Furosemide 40 Mg Tablet 40 Mg PO DAILY 06/07/19 Reported Finasteride 5 Mg Tablet 1 Tab PO DAILY 06/07/19 Reported Simvastatin 40 Mg Tablet 1 Tab PO QHS 06/07/19 Reported Metoprolol Succinate ( Xl ) (Metoprolol Succinate) 200 Mg Tab.er.24h 1 Tab PO DAILY 06/07/19 Reported Levothyroxine Sodium 175 Mcg Tablet 1 Tab PO DAILY 06/07/19 Reported Losartan-Hctz 100-12.5 Mg Tab (Losartan/Hydrochlorothiazide) 1 Each Tablet 1 Tab PO DAILY 06/07/19 Reported Comments CXR 06/22 reviewed poor insp effoer basal infiltrates skin fold right side Impression . 1. Acute Respiratory failure, multifactorial, includes septic shock, colonic ileus 2. septic shock 3. Erosive gastritis./ colonic ileus with recurrent emesis. high risk for aspiration. will not be able to protect his airway post extubation 4. C-Diff 5. Coronary artery disease, status post coronary artery bypass grafting. 6, COLONIC ILEUS 7. abnormal cxr with atelectasis 8. SHOULDER ABSCESS 9. RENATA 10. severe PCM ID NOTE LUE abscess s/p 10 ml removal 06/13. group B strep -S/p Left shoulder open incision and drainage with arthrotomy, debridement of bone and bone cement, and joint irrigation 06/14 G B strep C. diff positive, 06/14 Plan . 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 OK WITH TRACH. WILL ASSESS TUESDAY. IF NO CHANGE, CONSULT SURGERY HIGH RISK FOR ASPIRATION POST EXTUBATION. CCT 30 MIN LITA INMAN MD Jun 22, 2019 10:34
[2019-06-22] MEDS: VASOPRESSIN 40 UNIT in IV DEXTROSE 5% 100ML 100 ML IV PRN (11:10)
[2019-06-22 12:37] LABS: MAGNESIUM 2.1 mg/dL (1.8-2.4); PHOSPHORUS 2.5 mg/dL (2.6-4.7); POTASSIUM 4.5 mmol/L (3.5-5.1)
[2019-06-22] MEDS: MIDAZOLAM HCL/PF 2 MG/2 ML VIAL. IV PRN (13:31)
[2019-06-22] MEDS: TPN PER PHARMACY MC PRN (13:38)
--- NOTE | 2019-06-22 13:58 | NUR ---
SS following up with discharge planning. SS phoned and faxed clinical updates to [facility], ; fax [phone]. SS will continue to follow for discharge planning.
[2019-06-22 18:53] LABS: MAGNESIUM 2.1 mg/dL (1.8-2.4); PHOSPHORUS 2.4 mg/dL (2.6-4.7); POTASSIUM 4.6 mmol/L (3.5-5.1)
--- NOTE | 2019-06-22 19:30 | RAD ---
EXAM: AP View of the chest DATE: 06/22/2019 10:09 AM INDICATION: Respiratory failure COMPARISON: 06/21/2019, 06/20/2019 FINDINGS/ IMPRESSION: The heart is mildly enlarged. Support lines and tubes including right IJ vascular catheter and left jugular catheter are in stable position. Enteric tube tip extends beyond the diaphragm although the proximal sidehole is at the GE junction and can be advanced 2-3 cm. Prominent skinfold overlies the right lung, no definite pneumothorax. Bibasilar airspace opacities are grossly unchanged. EXAM: Supine AP view of the abdomen DATE: 06/22/2019 10:09 AM INDICATION: Increased NG tube output COMPARISON: No Prior FINDINGS/IMPRESSION: Single AP view of the abdomen includes in the [id number] the epigastric region and left upper quadrant. The remainder of the abdomen and pelvis is not included in the [id number]. Diffusely dilated loops of bowel are seen throughout the visualized abdomen. Obstruction or ileus is suspected. Electronically signed by: Killian Merchant MD (06/22/2019 5:43 PM) [facility]
--- NOTE | 2019-06-22 19:30 | RAD ---
EXAM: AP View of the chest DATE: 06/22/2019 10:09 AM INDICATION: Respiratory failure COMPARISON: 06/21/2019, 06/20/2019 FINDINGS/ IMPRESSION: The heart is mildly enlarged. Support lines and tubes including right IJ vascular catheter and left jugular catheter are in stable position. Enteric tube tip extends beyond the diaphragm although the proximal sidehole is at the GE junction and can be advanced 2-3 cm. Prominent skinfold overlies the right lung, no definite pneumothorax. Bibasilar airspace opacities are grossly unchanged. EXAM: Supine AP view of the abdomen DATE: 06/22/2019 10:09 AM INDICATION: Increased NG tube output COMPARISON: No Prior FINDINGS/IMPRESSION: Single AP view of the abdomen includes in the [id number] the epigastric region and left upper quadrant. The remainder of the abdomen and pelvis is not included in the [id number]. Diffusely dilated loops of bowel are seen throughout the visualized abdomen. Obstruction or ileus is suspected. Electronically signed by: Killian Merchant MD (06/22/2019 5:43 PM) [facility]
[2019-06-22] MEDS: SIMVASTATIN 40 MG TABLET. PO SCH (20:58)
[2019-06-22] MEDS: INSULIN GLARGINE SYRINGE. SQ SCH (21:04)
[2019-06-22] MEDS ORDERED: [UNRECOGNIZED DRUG - OTHER] IV SCH ×12 (22:00)
[2019-06-22] MEDS ORDERED: TOTAL PARENTERAL NUTRITION IV SCH ×12 (22:00)
[2019-06-22] MEDS ORDERED: AMINO ACID IV SCH ×12 (22:00)
[2019-06-22] MEDS ORDERED: DEXTROSE 70% IV SCH ×12 (22:00)
--- NOTE | 2019-06-22 22:19 | NUR ---
Persistent high negative pressure access alarms on CRRT machine, both ports of dialysis line flush and draw without difficulty. Phoned personal fitness trainer dialysis nurse, Sheryl RN, suggested decreasing pt. fluid removal rate. Fluid removal rate decreased to 50mL/hr. Access pressures WNL at this time.
[2019-06-23] VITALS (24 sets, daily range): BP systolic 87–127; BP diastolic 41–74
[2019-06-23] MEDS: MIDAZOLAM HCL/PF 2 MG/2 ML VIAL. IV PRN (01:21)
[2019-06-23] MEDS: POTASSIUM CHLORIDE 15 MEQ in DIALYSIS SOLUTION BGK 0/2.5 5,000 ML IV SCH ×10 (01:24→12:05)
--- NOTE | 2019-06-23 03:11 | PN ---
DATE: 06/22/2019 SUBJECTIVE: The patient is resting slightly propped up in bed, continued to be intubated and mechanically ventilated. He is also on Precedex and fentanyl, although he is more awake, opens his eyes, tracks and responds by nodding his head. He continued to be extremely oliguric, but there is output through his NG tube with a total output of about 900. PHYSICAL EXAMINATION: GENERAL: When I examined him, he looked pale. No jaundice, cyanosis or thyromegaly. No jugular venous distention. No lower limb edema. VITAL SIGNS: His heart rate was 62, blood pressure 111/69, temperature was 98, respiratory rate was 20, and oxygen saturation was 99% on FiO2 of 40%. HEAD, EYES, EARS, NOSE AND THROAT: Showed he is normocephalic, atraumatic. He has an NG tube to the left nostril and also an orotracheal. NECK: Supple. HEART: Showed normal first and second heart sounds. No gallop or murmur. CHEST: Showed central trachea, equal bilateral expansion, air entry, vesicular sounds. No crepitation or rhonchi. ABDOMEN: Distended with diversification of the recti. There is no tenderness. No guarding or rigidity. No organomegaly. All hernial orifices intact. Bowel sounds normal. NEUROLOGIC: Neurologically, he is definitely awake, does open his eyes, tracks and responds appropriately. LABORATORY DATA: His intake over the last 24 hours was 1350. He was on ultrafiltration and about 2 liters of fluid were removed. There was also excessive drainage from NG tube, but very little urine output. His white cell count was 9100, hemoglobin 8.3, hematocrit 24.7, MCV 95, and platelet count 204,000. His chemistry showed a serum sodium 139, potassium 4.7, chloride 108, bicarbonate 28, anion gap of 3, BUN 35, creatinine 1.5, estimated GFR was 45 mL per minute. Glucose is 191, calcium is 7.5, total serum phosphorus 2.8 and magnesium was 2.1. ASSESSMENT: 1. Left upper extremity abscess, status post aspiration with 10 mL on 06/13/2019 which grew group B streptococcus. He is also status post left shoulder open incision and drainage with arthrotomy, debridement of bone and bone cement and joint irrigation on 06/14/2019. 2. He developed diarrhea and was found to be positive for Clostridium difficile toxin. 3. PENICILLIN ALLERGY. 4. Hypertension, for which he continues to be on vasopressin. His Levophed was discontinued. 5. Postoperative respiratory failure secondary to be intubated and mechanically ventilated. He is maintaining his oxygen saturation at 99% on FiO2 of 40%. 6. Leukocytosis, resolved. 7. [place] syndrome, for which the Gastroenterology team is following. Apparently he has an upper GI endoscopy done, which showed that he has erosive gastritis and duodenal ulcer, for which he is now on proton pump inhibitor. 8. Coronary artery disease, status post coronary artery bypass graft surgery. 9. Urinary retention, for which he has a Bledsoe catheter in place. PLAN: To continue with IV ceftriaxone for group B streptococcus and oral vancomycin for C. diff colitis. Continue with mechanical ventilation, wean as tolerated. Continue with hemodialysis by Nephrology team. Continue with contact isolation. Continue nutritional support in the form of TPN. His hypernatremia and hypokalemia has both resolved. KERI DIGGS MD DR: PAIGE/chastity JOB#: [id number] / [id number]
[2019-06-23 04:55] LABS: HEMATOCRIT 26.3 % (39.0-53.0); HEMOGLOBIN 8.8 g/dL (13.0-17.5); RED BLOOD COUNT 2.77 x10^6/uL (4.30-5.70)
[2019-06-23] MEDS: VASOPRESSIN 40 UNIT in IV DEXTROSE 5% 100ML 100 ML IV PRN (05:07)
[2019-06-23 05:13] LABS: CALCIUM 7.4 mg/dL (8.5-10.1); CREATININE 0.9 mg/dL (0.7-1.3); GFR 81.8; MAGNESIUM 2.2 mg/dL (1.8-2.4); PHOSPHORUS 2.1 mg/dL (2.6-4.7); POTASSIUM 4.3 mmol/L (3.5-5.1)
[2019-06-23] MEDS: INSULIN LISPRO 300 UNITS/3 ML VIAL. SQ SCH ×4 (05:43→17:42)
[2019-06-23] MEDS: LEVOTHYROXINE 175 MCG TABLET PO SCH (05:44)
--- NOTE | 2019-06-23 06:21 | PDOC ---
PULMONARY PROGRESS NOTES Subjective on vent, HAD AN EPISODE OF EMESIS yesterday SOME ASPIRATION, on fentanyl, precedex on vaso off levophed Vitals Vital Signs Date Time Temp Pulse Resp B/P (MAP) Pulse Ox O2 Delivery O2 Flow Rate FiO2 06/23/19 05:00 53 14 123/71 (88) 99 Ventilator 06/23/19 04:00 96.1 96.1 06/22/19 18:00 2.0 Comments ros as mentioned as above discussed w rn other sys otherwise neg on vent alert, HEENT: Other (nc at perrl nose clear oally intubated neck no lad no thyromegaly) Lungs: Other (few rhonchi) Cardiovascular: S1, S2 Abdomen: Soft, Non-tender, Other (distended, firm, abdominal wall hernia) Extremities: Other (2+edema, scrotal edema) Skin: Warm Labs Laboratory Tests Test 06/21/19 08:20 06/21/19 12:15 06/21/19 12:20 06/21/19 18:00 O2 Saturation 96 % (92-99) 97 % (92-99) Arterial Blood pH 7.37 (7.35-7.45) 7.39 (7.35-7.45) Arterial Blood pCO2 at Patient Temp 44 mmHg (35-46) 41 mmHg (35-46) Arterial Blood pO2 at Patient Temp 100 mmHg (65-108) 130 mmHg (65-108) Arterial Blood HCO3 24 mmol/L (21-28) 24 mmol/L (21-28) Arterial Blood Base Excess -1 mmol/L (-3-3) -1 mmol/L (-3-3) FiO2 40 40 Sodium Level 138 mmol/L (136-145) 139 mmol/L (136-145) Potassium Level 4.2 mmol/L (3.5-5.1) 4.3 mmol/L (3.5-5.1) Chloride Level 106 mmol/L (98-107) 107 mmol/L (98-107) Carbon Dioxide Level 29 mmol/L (21-32) 30 mmol/L (21-32) Anion Gap 3 (6-14) 2 (6-14) Phosphorus Level 2.3 mg/dL (2.6-4.7) 2.3 mg/dL (2.6-4.7) Magnesium Level 2.0 mg/dL (1.8-2.4) 2.0 mg/dL (1.8-2.4) Test 06/21/19 18:49 06/22/19 00:02 06/22/19 05:15 06/22/19 05:34 Glucose (Fingerstick) 173 mg/dL (70-99) 175 mg/dL (70-99) 167 mg/dL (70-99) White Blood Count 9.1 x10^3/uL (4.0-11.0) Red Blood Count 2.60 x10^6/uL (4.30-5.70) Hemoglobin 8.3 g/dL (13.0-17.5) Hematocrit 24.7 % (39.0-53.0) Mean Corpuscular Volume 95 fL (79-100) Mean Corpuscular Hemoglobin 32 pg (25-35) Mean Corpuscular Hemoglobin Concent 34 g/dL (31-37) Red Cell Distribution Width 14.8 % (11.5-14.5) Platelet Count 104 x10^3/uL (140-400) Sodium Level 139 mmol/L (136-145) Potassium Level 4.7 mmol/L (3.5-5.1) Chloride Level 108 mmol/L (98-107) Carbon Dioxide Level 28 mmol/L (21-32) Anion Gap 3 (6-14) Blood Urea Nitrogen 35 mg/dL (8-26) Creatinine 1.5 mg/dL (0.7-1.3) Estimated GFR (Cockcroft-Gault) 45.4 Glucose Level 191 mg/dL (70-99) Calcium Level 7.5 mg/dL (8.5-10.1) Phosphorus Level 2.8 mg/dL (2.6-4.7) Magnesium Level 2.1 mg/dL (1.8-2.4) Test 06/22/19 07:50 06/22/19 12:00 06/22/19 12:05 06/22/19 18:00 O2 Saturation 96 % (92-99) Arterial Blood pH 7.42 (7.35-7.45) Arterial Blood pCO2 at Patient Temp 36 mmHg (35-46) Arterial Blood pO2 at Patient Temp 88 mmHg (65-108) Arterial Blood HCO3 22 mmol/L (21-28) Arterial Blood Base Excess -2 mmol/L (-3-3) FiO2 40 Sodium Level 141 mmol/L (136-145) 142 mmol/L (136-145) Potassium Level 4.5 mmol/L (3.5-5.1) 4.6 mmol/L (3.5-5.1) Chloride Level 108 mmol/L (98-107) 109 mmol/L (98-107) Carbon Dioxide Level 30 mmol/L (21-32) 30 mmol/L (21-32) Anion Gap 3 (6-14) 3 (6-14) Phosphorus Level 2.5 mg/dL (2.6-4.7) 2.4 mg/dL (2.6-4.7) Magnesium Level 2.1 mg/dL (1.8-2.4) 2.1 mg/dL (1.8-2.4) Glucose (Fingerstick) 138 mg/dL (70-99) Test 06/23/19 04:00 White Blood Count 11.0 x10^3/uL (4.0-11.0) Red Blood Count 2.77 x10^6/uL (4.30-5.70) Hemoglobin 8.8 g/dL (13.0-17.5) Hematocrit 26.3 % (39.0-53.0) Mean Corpuscular Volume 95 fL (79-100) Mean Corpuscular Hemoglobin 32 pg (25-35) Mean Corpuscular Hemoglobin Concent 33 g/dL (31-37) Red Cell Distribution Width 15.0 % (11.5-14.5) Platelet Count 99 x10^3/uL (140-400) Sodium Level 140 mmol/L (136-145) Potassium Level 4.3 mmol/L (3.5-5.1) Chloride Level 108 mmol/L (98-107) Carbon Dioxide Level 31 mmol/L (21-32) Anion Gap 1 (6-14) Blood Urea Nitrogen 21 mg/dL (8-26) Creatinine 0.9 mg/dL (0.7-1.3) Estimated GFR (Cockcroft-Gault) 81.8 Glucose Level 136 mg/dL (70-99) Calcium Level 7.4 mg/dL (8.5-10.1) Phosphorus Level 2.1 mg/dL (2.6-4.7) Magnesium Level 2.2 mg/dL (1.8-2.4) Laboratory Tests Test 06/22/19 07:50 06/22/19 12:00 06/22/19 12:05 06/22/19 18:00 O2 Saturation 96 % (92-99) Arterial Blood pH 7.42 (7.35-7.45) Arterial Blood pCO2 at Patient Temp 36 mmHg (35-46) Arterial Blood pO2 at Patient Temp 88 mmHg (65-108) Arterial Blood HCO3 22 mmol/L (21-28) Arterial Blood Base Excess -2 mmol/L (-3-3) FiO2 40 Sodium Level 141 mmol/L (136-145) 142 mmol/L (136-145) Potassium Level 4.5 mmol/L (3.5-5.1) 4.6 mmol/L (3.5-5.1) Chloride Level 108 mmol/L (98-107) 109 mmol/L (98-107) Carbon Dioxide Level 30 mmol/L (21-32) 30 mmol/L (21-32) Anion Gap 3 (6-14) 3 (6-14) Phosphorus Level 2.5 mg/dL (2.6-4.7) 2.4 mg/dL (2.6-4.7) Magnesium Level 2.1 mg/dL (1.8-2.4) 2.1 mg/dL (1.8-2.4) Glucose (Fingerstick) 138 mg/dL (70-99) Test 06/23/19 04:00 White Blood Count 11.0 x10^3/uL (4.0-11.0) Red Blood Count 2.77 x10^6/uL (4.30-5.70) Hemoglobin 8.8 g/dL (13.0-17.5) Hematocrit 26.3 % (39.0-53.0) Mean Corpuscular Volume 95 fL (79-100) Mean Corpuscular Hemoglobin 32 pg (25-35) Mean Corpuscular Hemoglobin Concent 33 g/dL (31-37) Red Cell Distribution Width 15.0 % (11.5-14.5) Platelet Count 99 x10^3/uL (140-400) Sodium Level 140 mmol/L (136-145) Potassium Level 4.3 mmol/L (3.5-5.1) Chloride Level 108 mmol/L (98-107) Carbon Dioxide Level 31 mmol/L (21-32) Anion Gap 1 (6-14) Blood Urea Nitrogen 21 mg/dL (8-26) Creatinine 0.9 mg/dL (0.7-1.3) Estimated GFR (Cockcroft-Gault) 81.8 Glucose Level 136 mg/dL (70-99) Calcium Level 7.4 mg/dL (8.5-10.1) Phosphorus Level 2.1 mg/dL (2.6-4.7) Magnesium Level 2.2 mg/dL (1.8-2.4) Medications Active Scripts Medications Dose Route/Sig Max Daily Dose Days Date Category Foltx Tablet (B12/Levomefolate Calcium/B-6) 1 Each Tablet 1 Each PO AFTRNOON 06/07/19 Reported Testosterone Cypionate 200 Mg/1 Ml Vial 1 Ml IM Q2WKS 06/07/19 Reported Novolog Mix 70-30 Flexpen Syrn (Insuln Asp Prt/Insulin Aspart) 100 Unit/1 Ml Insuln.pen 1 Unit SQ BIDACBL 06/07/19 Reported Lantus Solostar (Insulin Glargine,Hum.rec.anlog) 100 Unit/1 Ml Insuln.pen 30 Unit SQ QHS 06/07/19 Reported Nifedipine Er (Nifedipine) 60 Mg Tab.er.24 1 Tab PO DAILY 06/07/19 Reported Morphine Sulfate Er (Morphine Sulfate) 60 Mg Tablet.er 1 Tab PO BID 06/07/19 Reported Furosemide 40 Mg Tablet 40 Mg PO DAILY 06/07/19 Reported Finasteride 5 Mg Tablet 1 Tab PO DAILY 06/07/19 Reported Simvastatin 40 Mg Tablet 1 Tab PO QHS 06/07/19 Reported Metoprolol Succinate ( Xl ) (Metoprolol Succinate) 200 Mg Tab.er.24h 1 Tab PO DAILY 06/07/19 Reported Levothyroxine Sodium 175 Mcg Tablet 1 Tab PO DAILY 06/07/19 Reported Losartan-Hctz 100-12.5 Mg Tab (Losartan/Hydrochlorothiazide) 1 Each Tablet 1 Tab PO DAILY 06/07/19 Reported Comments CXR 06/23 reviewed Improving bilateral lower lobe subsegmental atelectasis and/ or infiltrate. Impression . 1. Acute Respiratory failure, multifactorial, includes septic shock, colonic ileus 2. septic shock 3. Erosive gastritis./ colonic ileus with recurrent emesis. high risk for aspiration. will not be able to protect his airway post extubation 4. C-Diff 5. Coronary artery disease, status post coronary artery bypass grafting. 6, COLONIC ILEUS 7. abnormal cxr with atelectasis 8. SHOULDER ABSCESS 9. RENATA 10. severe PCM 11. c diff colitis ID NOTE LUE abscess s/p 10 ml removal 06/13. group B strep -S/p Left shoulder open incision and drainage with arthrotomy, debridement of bone and bone cement, and joint irrigation 06/14 G B strep C. diff positive, 06/14 Plan . on vanco for c diff AC MODE/ ABG ADEQUATE SLOWLY WEAN PRESSOR VASOPRESSIN to keep map>65 OFF VERSED, / on FANTANYL/ ON PRECEDEX FAILED CPAP TRIAL WITH INCREASE R/R/ HOLD TRIAL TODAY on crrt WILL CONTINUE SUPPORT CRRT PER NEPHRO ABG NOTED /COMPENSATED OVERALL PROGNOSIS IS GUARDED ANTI BX PER ID D/W RN dr lowe D/W IN DETAIL/ SHE WANTS TO GIVE HIM A CHANCE. OK WITH TRACH. WILL ASSESS TUESDAY. IF NO CHANGE, CONSULT SURGERY HIGH RISK FOR ASPIRATION POST EXTUBATION. prognosis poor discussed w MARY Ingram MD Jun 23, 2019 06:21
[2019-06-23 07:11] LABS: MAGNESIUM 2.3 mg/dL (1.8-2.4); PHOSPHORUS 2.2 mg/dL (2.6-4.7)
--- NOTE | 2019-06-23 08:22 | RAD ---
AP portable chest radiograph 06/23/2019 Clinical History: Respiratory failure. An AP erect portable digital radiograph of the chest was obtained. Comparison study is dated 06/22/2019. The ET tube, NG tube, left internal jugular central venous catheter and large bore right internal jugular central venous catheter are unchanged in position. The cardiac silhouette is mildly enlarged. The thoracic aorta is tortuous. Atherosclerotic calcification of the thoracic aorta is seen. The degree of inspiration is shallow. Improving bilateral lower lobe subsegmental atelectasis and/ or infiltrate is seen. No pneumothorax or pleural effusion is noted. The patient is post left shoulder joint replacement. The osseous structures are unchanged. Impression: Improving bilateral lower lobe subsegmental atelectasis and/ or infiltrate. Electronically signed by: Kervin Segovia MD (06/23/2019 8:19 AM) [facility]
[2019-06-23 08:31] LABS: BASE EXCESS ABG 0 mmol/L (-3-3); HCO3 ABG 24 mmol/L (21-28); PCO2 ABG 37 mmHg (35-46); PO2 ABG 139 mmHg (65-108); SAT O2 ABG 98 % (92-99)
[2019-06-23 08:33] LABS: FIO2 ABG 40
[2019-06-23] MEDS: cefTRIAXone IV Push 2 GM VIAL. IVP SCH (08:39)
[2019-06-23] MEDS: MORPHINE ER 30 MG TABLET.ER PO SCH ×2 (08:40→19:50)
[2019-06-23] MEDS: VITAMIN B COMPLEX TABLET. PO SCH (08:40)
[2019-06-23] MEDS: PANTOPRAZOLE IV PUSH 40 MG VIAL. IVP SCH (08:40)
[2019-06-23] MEDS: VANCOMYCIN 125 MG/2.5 ML ORAL SOLUTION. PO SCH ×4 (08:41→20:32)
[2019-06-23] MEDS: FINASTERIDE 5 MG TABLET. PO SCH (08:41)
[2019-06-23] MEDS: ALBUMIN HUMAN 25% 100 ML IV SCH ×3 (08:50→17:25)
[2019-06-23] MEDS: HEPARIN for SUB-Q USE 5,000 UNIT/ML VIAL. SQ SCH (09:00)
[2019-06-23] MEDS ORDERED: SODIUM PHOSPHATE 20 MMOL in IV DEXTROSE 5% 250 ML IV ONE (09:00)
[2019-06-23] MEDS: DEXMEDETOMIDINE 400 MCG in IV NORMAL SALINE 100ML 96 ML IV PRN ×2 (09:02→20:32)
--- NOTE | 2019-06-23 09:15 | PDOC ---
Infectious Disease Note Subjective Subjective vomited during CPAP trail yesterday KUB concerning for obstruction or ileus. FiO2 40% No fevers last 24 hours TPN ROS ROS unobtainable Vital Sign Vital Signs Vital Signs Date Time Temp Pulse Resp B/P (MAP) Pulse Ox O2 Delivery O2 Flow Rate FiO2 06/23/19 08:07 98 Ventilator 06/23/19 06:00 64 14 110/60 (77) 06/23/19 04:00 96.1 96.1 06/22/19 18:00 2.0 Physical Exam PHYSICAL EXAM GENERAL: Orally intubated, sedated, CRRT - bear hugger HEENT: Pupils are equal, NGT, ETT LUNGS: Course HEART: S1, S2. irregular, avelino 40-50s ABDOMEN: Obese, soft + BS. Rectal tube out : Bledsoe EXTREMITIES: Generalized edema. Left shoulder incision well-approx/thiago, clean SKIN: Without signs of rash NEUROLOGIC: Opens eyes to touch Temp HDC (06/15) [facility] Labs Lab Laboratory Tests Test 06/22/19 12:00 06/22/19 12:05 06/22/19 18:00 06/23/19 00:14 Sodium Level 141 mmol/L (136-145) 142 mmol/L (136-145) Potassium Level 4.5 mmol/L (3.5-5.1) 4.6 mmol/L (3.5-5.1) Chloride Level 108 mmol/L (98-107) 109 mmol/L (98-107) Carbon Dioxide Level 30 mmol/L (21-32) 30 mmol/L (21-32) Anion Gap 3 (6-14) 3 (6-14) Phosphorus Level 2.5 mg/dL (2.6-4.7) 2.4 mg/dL (2.6-4.7) Magnesium Level 2.1 mg/dL (1.8-2.4) 2.1 mg/dL (1.8-2.4) Glucose (Fingerstick) 138 mg/dL (70-99) 138 mg/dL (70-99) Test 06/23/19 04:00 06/23/19 08:25 White Blood Count 11.0 x10^3/uL (4.0-11.0) Red Blood Count 2.77 x10^6/uL (4.30-5.70) Hemoglobin 8.8 g/dL (13.0-17.5) Hematocrit 26.3 % (39.0-53.0) Mean Corpuscular Volume 95 fL (79-100) Mean Corpuscular Hemoglobin 32 pg (25-35) Mean Corpuscular Hemoglobin Concent 33 g/dL (31-37) Red Cell Distribution Width 15.0 % (11.5-14.5) Platelet Count 99 x10^3/uL (140-400) Sodium Level 140 mmol/L (136-145) Potassium Level 4.3 mmol/L (3.5-5.1) Chloride Level 108 mmol/L (98-107) Carbon Dioxide Level 31 mmol/L (21-32) Anion Gap 1 (6-14) Blood Urea Nitrogen 21 mg/dL (8-26) Creatinine 0.9 mg/dL (0.7-1.3) Estimated GFR (Cockcroft-Gault) 81.8 Glucose Level 136 mg/dL (70-99) Calcium Level 7.4 mg/dL (8.5-10.1) Phosphorus Level 2.1 mg/dL (2.6-4.7) Magnesium Level 2.2 mg/dL (1.8-2.4) O2 Saturation 98 % (92-99) Arterial Blood pH 7.43 (7.35-7.45) Arterial Blood pCO2 at Patient Temp 37 mmHg (35-46) Arterial Blood pO2 at Patient Temp 139 mmHg (65-108) Arterial Blood HCO3 24 mmol/L (21-28) Arterial Blood Base Excess 0 mmol/L (-3-3) FiO2 40 Micro 06/13/19 Blood Culture - Preliminary, Resulted NO GROWTH AFTER 4 DAYS Left shoulder AEROBIC RES 1 Preliminary Beta hemolytic Streptococcus, group B AFB CULTURE GRAM STAIN Final Negative 06/14. GRAM STAIN RES 2 Final Comment Gram positive cocci in pairs and chains. Objective Assessment LUE abscess s/p 10 ml removal 06/13. group B strep -S/p Left shoulder open incision and drainage with arthrotomy, debridement of bone and bone cement, and joint irrigation 06/14 G B strep C. diff positive, 06/14 PCN allergy - Hives - believes has tolerated Cephalosporins per his RENATA requiring HD, on vasopressin Post op resp failure - intubated - Pulm following Leukocytosis - worse but s/p Dexamethasone 06/14 preop and post op reactive ? Malik syndrome - GI following + BM yesterday rectal tube in CAD - Cardiology following H/o MRSA H/o Group B strep sepsis Erosive Gastritis s/p EGD 06/08 Urinary retention - Bledsoe placed 06/12 Fractures of 2 superior mediastinal wires Plan Plan of Care Rocephin and PO vanc Add IV Flagyl with ? aspiration and ? if Vanc getting in Monitor labs/temp D/w Dr. Hancock Contact isolation Critically ill D/w nursing [facility]CI prognosis poor D/w Attending Co-Sign Attending Co-Sign The patient was seen and interviewed as well as examined at the bedside. The chart was reviewed. The case was discussed. Agree with the plan of care. LALO SCHWARZ APRN Jun 23, 2019 09:15 RANDEE GARRETT MD Jun 23, 2019 14:39
--- NOTE | 2019-06-23 10:08 | PN ---
DATE: 06/23/2019 SUBJECTIVE: The patient is resting slightly propped up in bed, no apparent distress. He continued to be sedated, intubated and mechanically ventilated. He apparently has multiple episodes of emesis and increased NG output. He continues to be on Precedex and fentanyl for sedation. Continued to be on continuous renal replacement therapy. Apparently, he has only about 40 mL of urine output last night. PHYSICAL EXAMINATION: GENERAL: When I examined him, he looked pale. No jaundice, cyanosis or thyromegaly. No jugular venous distention or limb edema. VITAL SIGNS: His heart rate was 53, blood pressure was 123/71, temperature was 96.1, respiratory rate was 14 and oxygen saturation was 100% on FiO2 of 40%. HEAD, EYES, EARS, NOSE AND THROAT: Normocephalic, atraumatic. NECK: Supple. HEART: Showed normal first and second heart sounds. No gallop, rub or murmur. CHEST: Clear to auscultation. No crepitation or rhonchi. ABDOMEN: Markedly distended, soft, nontender. NEUROLOGIC: He is heavily sedated. His intake was 1800, output was 782. LABORATORY DATA: As of this morning, his white cell count was 11,000, hemoglobin 8.8, hematocrit 26, MCV 95 and platelet count of 99,000. His chemistries showed serum sodium 140, potassium 4.3, chloride 108, bicarbonate 31, anion gap of 1, BUN 21, creatinine 0.9, estimated GFR was 81 mL per minute, his glucose 136, calcium was 7.4, phosphorus 2.1 and magnesium was 2.2. ASSESSMENT: 1. Left upper extremity abscess, status post aspiration of 10 mL on 06/13/2019 which grew group B streptococcus. He is also status post left shoulder open incision and drainage with arthrotomy, debridement of bone and bone cement and joint irrigation on 06/14/2019. 2. Developed postoperative respiratory failure secondary to which he was intubated, mechanical ventilated, he is maintaining his oxygen saturation at 100% on FiO2 of 40%. 3. He developed diarrhea and was found to be positive for Clostridium difficile toxins for which he is now on vancomycin through the NG tube. 4. Hypertension for which he continues to be on vasopressin. His Levophed was discontinued. 5. PENICILLIN ALLERGY. 6. Leukocytosis, resolved. 7. [place] syndrome for which gastroenterology team is following. He apparently has had before upper GI endoscopy, which showed that he has erosive gastritis and duodenal ulcer for which he is now on proton pump inhibitor. He has also chronic ileus. 8. Coronary artery disease, status post coronary artery bypass graft surgery. 9. Urinary retention for which he has an indwelling Bledsoe catheter. 10. Acute kidney injury for which he is on continuous renal replacement therapy. PLAN: 1. Continue with IV ceftriaxone for group B Streptococcus and oral vancomycin for C. diff colitis. 2. Continue with mechanical ventilation, wean as tolerated. 3. Continue with hemodialysis as per nephrology team. 4. Continue with contact isolation. 5. Continue nutritional support in the form of TPN. His hyponatremia and hypokalemia has resolved. His overall prognosis is extremely poor given that he has multiple organ failure. KERI DIGGS MD DR: PAIGE/chastity JOB#: [id number] / [id number]
[2019-06-23] MEDS: TPN PER PHARMACY MC PRN ×2 (11:12→12:27)
--- NOTE | 2019-06-23 11:13 | NUR ---
Pharmacy TPN Dosing Note S: ROSLYN MOORE is a 78 year old M Currently receiving Central Continuous TPN started 06/15/19 B:Pertinent PMH: Duodenal ulcer, Ileus Height: 6 feet, 0 inches Weight: [id number] kg Current diet: NPO LABS: Sodium: 140 Potassium: 4.3 Chloride: 108 Calcium: 7.4 Corrected Calcium: 9.56 Magnesium: 2.2 CO2: 31 SCr: 0.9 Glucose: 136 Albumin: 1.3 AST: 16 ALT: 7 TPN FORMULA: TPN TYPE: Central Continuous AMINO ACIDS: 110 gm DEXTROSE: 195 gm LIPIDS: 20 gm SODIUM CHLORIDE: 100 mEq SODIUM ACETATE: mEq SODIUM PHOSPHATE: 20 mmol POTASSIUM CHLORIDE: 95 mEq POTASSIUM ACETATE: mEq POTASSIUM PHOSPHATE: 20.4 mmol MAGNESIUM: 10 mEq CALCIUM: 10 mEq INSULIN: 10 units MULTIPLE VITAMIN: 10 ml TRACE ELEMENTS: 1 ml(s) TPN PLAN: Pt remains on CRRT, CVVHDF. phos remains low, increase NaPhos (also received 20mmol NaPhos bolus this am), removed calcium due to chance for precipitation. Labs in AM. R: Continue TPN as written above. Will monitor electrolytes, glucose, and tolerance to TPN. JEANETTE ESCALONA [facility], 06/23/19 111
--- NOTE | 2019-06-23 11:44 | PDOC ---
Dialysis Progress Note Dialysis Note Dialysis Note Seen on CRRT tolerating treatment Okay so far Vitals at time of my visit: General Appearance: sedated and intubated on the vent - opens eyes Neck: No JVD or JVP, Chest: CTA Nitesh - distal Heart: S1 S2 Abdomen - appears distended with no BS Ext : ++ Edema x 4 ARF/ ATN + Anasarca : CRRT as ongoing. UF needed to be dropped due to dec Qb. IV Albumin ordered and will reval. Replace Phos as ordered. will D/c Dialysis and ct with SCUF. Remains on Pressors. dec Plts - D/c Heparin - may need heme eval Vitals Vital Signs Vital Signs Date Time Temp Pulse Resp B/P (MAP) Pulse Ox O2 Delivery O2 Flow Rate FiO2 06/23/19 11:12 12 100 Ventilator 06/23/19 11:00 52 119/64 (82) 06/23/19 08:00 96.0 96.0 06/22/19 18:00 2.0 Labs Last Labs Laboratory Tests Test 06/21/19 12:15 06/21/19 12:20 06/21/19 18:00 06/21/19 18:49 Sodium Level 138 mmol/L (136-145) 139 mmol/L (136-145) Potassium Level 4.2 mmol/L (3.5-5.1) 4.3 mmol/L (3.5-5.1) Chloride Level 106 mmol/L (98-107) 107 mmol/L (98-107) Carbon Dioxide Level 29 mmol/L (21-32) 30 mmol/L (21-32) Anion Gap 3 (6-14) 2 (6-14) Phosphorus Level 2.3 mg/dL (2.6-4.7) 2.3 mg/dL (2.6-4.7) Magnesium Level 2.0 mg/dL (1.8-2.4) 2.0 mg/dL (1.8-2.4) O2 Saturation 97 % (92-99) Arterial Blood pH 7.39 (7.35-7.45) Arterial Blood pCO2 at Patient Temp 41 mmHg (35-46) Arterial Blood pO2 at Patient Temp 130 mmHg (65-108) Arterial Blood HCO3 24 mmol/L (21-28) Arterial Blood Base Excess -1 mmol/L (-3-3) FiO2 40 Glucose (Fingerstick) 173 mg/dL (70-99) Test 06/22/19 00:02 06/22/19 05:15 06/22/19 05:34 06/22/19 07:50 Glucose (Fingerstick) 175 mg/dL (70-99) 167 mg/dL (70-99) White Blood Count 9.1 x10^3/uL (4.0-11.0) Red Blood Count 2.60 x10^6/uL (4.30-5.70) Hemoglobin 8.3 g/dL (13.0-17.5) Hematocrit 24.7 % (39.0-53.0) Mean Corpuscular Volume 95 fL (79-100) Mean Corpuscular Hemoglobin 32 pg (25-35) Mean Corpuscular Hemoglobin Concent 34 g/dL (31-37) Red Cell Distribution Width 14.8 % (11.5-14.5) Platelet Count 104 x10^3/uL (140-400) Sodium Level 139 mmol/L (136-145) Potassium Level 4.7 mmol/L (3.5-5.1) Chloride Level 108 mmol/L (98-107) Carbon Dioxide Level 28 mmol/L (21-32) Anion Gap 3 (6-14) Blood Urea Nitrogen 35 mg/dL (8-26) Creatinine 1.5 mg/dL (0.7-1.3) Estimated GFR (Cockcroft-Gault) 45.4 Glucose Level 191 mg/dL (70-99) Calcium Level 7.5 mg/dL (8.5-10.1) Phosphorus Level 2.8 mg/dL (2.6-4.7) Magnesium Level 2.1 mg/dL (1.8-2.4) O2 Saturation 96 % (92-99) Arterial Blood pH 7.42 (7.35-7.45) Arterial Blood pCO2 at Patient Temp 36 mmHg (35-46) Arterial Blood pO2 at Patient Temp 88 mmHg (65-108) Arterial Blood HCO3 22 mmol/L (21-28) Arterial Blood Base Excess -2 mmol/L (-3-3) FiO2 40 Test 06/22/19 12:00 06/22/19 12:05 06/22/19 18:00 06/23/19 00:14 Sodium Level 141 mmol/L (136-145) 142 mmol/L (136-145) Potassium Level 4.5 mmol/L (3.5-5.1) 4.6 mmol/L (3.5-5.1) Chloride Level 108 mmol/L (98-107) 109 mmol/L (98-107) Carbon Dioxide Level 30 mmol/L (21-32) 30 mmol/L (21-32) Anion Gap 3 (6-14) 3 (6-14) Phosphorus Level 2.5 mg/dL (2.6-4.7) 2.4 mg/dL (2.6-4.7) Magnesium Level 2.1 mg/dL (1.8-2.4) 2.1 mg/dL (1.8-2.4) Glucose (Fingerstick) 138 mg/dL (70-99) 138 mg/dL (70-99) Test 06/23/19 04:00 06/23/19 08:25 White Blood Count 11.0 x10^3/uL (4.0-11.0) Red Blood Count 2.77 x10^6/uL (4.30-5.70) Hemoglobin 8.8 g/dL (13.0-17.5) Hematocrit 26.3 % (39.0-53.0) Mean Corpuscular Volume 95 fL (79-100) Mean Corpuscular Hemoglobin 32 pg (25-35) Mean Corpuscular Hemoglobin Concent 33 g/dL (31-37) Red Cell Distribution Width 15.0 % (11.5-14.5) Platelet Count 99 x10^3/uL (140-400) Sodium Level 140 mmol/L (136-145) Potassium Level 4.3 mmol/L (3.5-5.1) Chloride Level 108 mmol/L (98-107) Carbon Dioxide Level 31 mmol/L (21-32) Anion Gap 1 (6-14) Blood Urea Nitrogen 21 mg/dL (8-26) Creatinine 0.9 mg/dL (0.7-1.3) Estimated GFR (Cockcroft-Gault) 81.8 Glucose Level 136 mg/dL (70-99) Calcium Level 7.4 mg/dL (8.5-10.1) Phosphorus Level 2.1 mg/dL (2.6-4.7) Magnesium Level 2.2 mg/dL (1.8-2.4) O2 Saturation 98 % (92-99) Arterial Blood pH 7.43 (7.35-7.45) Arterial Blood pCO2 at Patient Temp 37 mmHg (35-46) Arterial Blood pO2 at Patient Temp 139 mmHg (65-108) Arterial Blood HCO3 24 mmol/L (21-28) Arterial Blood Base Excess 0 mmol/L (-3-3) FiO2 40 Laboratory Tests Test 06/22/19 12:00 06/22/19 12:05 06/22/19 18:00 06/23/19 00:14 Sodium Level 141 mmol/L (136-145) 142 mmol/L (136-145) Potassium Level 4.5 mmol/L (3.5-5.1) 4.6 mmol/L (3.5-5.1) Chloride Level 108 mmol/L (98-107) 109 mmol/L (98-107) Carbon Dioxide Level 30 mmol/L (21-32) 30 mmol/L (21-32) Anion Gap 3 (6-14) 3 (6-14) Phosphorus Level 2.5 mg/dL (2.6-4.7) 2.4 mg/dL (2.6-4.7) Magnesium Level 2.1 mg/dL (1.8-2.4) 2.1 mg/dL (1.8-2.4) Glucose (Fingerstick) 138 mg/dL (70-99) 138 mg/dL (70-99) Test 06/23/19 04:00 06/23/19 08:25 White Blood Count 11.0 x10^3/uL (4.0-11.0) Red Blood Count 2.77 x10^6/uL (4.30-5.70) Hemoglobin 8.8 g/dL (13.0-17.5) Hematocrit 26.3 % (39.0-53.0) Mean Corpuscular Volume 95 fL (79-100) Mean Corpuscular Hemoglobin 32 pg (25-35) Mean Corpuscular Hemoglobin Concent 33 g/dL (31-37) Red Cell Distribution Width 15.0 % (11.5-14.5) Platelet Count 99 x10^3/uL (140-400) Sodium Level 140 mmol/L (136-145) Potassium Level 4.3 mmol/L (3.5-5.1) Chloride Level 108 mmol/L (98-107) Carbon Dioxide Level 31 mmol/L (21-32) Anion Gap 1 (6-14) Blood Urea Nitrogen 21 mg/dL (8-26) Creatinine 0.9 mg/dL (0.7-1.3) Estimated GFR (Cockcroft-Gault) 81.8 Glucose Level 136 mg/dL (70-99) Calcium Level 7.4 mg/dL (8.5-10.1) Phosphorus Level 2.1 mg/dL (2.6-4.7) Magnesium Level 2.2 mg/dL (1.8-2.4) O2 Saturation 98 % (92-99) Arterial Blood pH 7.43 (7.35-7.45) Arterial Blood pCO2 at Patient Temp 37 mmHg (35-46) Arterial Blood pO2 at Patient Temp 139 mmHg (65-108) Arterial Blood HCO3 24 mmol/L (21-28) Arterial Blood Base Excess 0 mmol/L (-3-3) FiO2 40 JENNIFER PEACE MD Jun 23, 2019 11:44
--- NOTE | 2019-06-23 12:20 | EKG ---
[facility] [address] [place] [address] Test Date: 2019-06-23 Test Time: 10:54:01 Pat Name: ROSLYN MOORE Department: Room: 109 1 Gender: M Plastic Surgery Nurse: : 1940 Requested By: KERI DIGGS Order Number: [id number] Reading MD: Measurements Intervals Bland Rate: 56 P: NH: QRS: 59 QRSD: 150 T: 21 QT: 536 QTc: 520 Interpretive Statements IRREGULAR RHYTHM, NO P-WAVE FOUND RIGHT BUNDLE BRANCH BLOCK RVH WITH REPOLARIZATION ABNORMALITY QRS(T) CONTOUR ABNORMALITY CONSIDER INFERIOR MYOCARDIAL DAMAGE ABNORMAL ECG RI6.01 Compared to ECG 06/14/2019 12:59:13 Right ventricular hypertrophy now present Early repolarization now present Sinus rhythm no longer present
--- NOTE | 2019-06-23 13:00 | NUR ---
Patient rhythm was new onset a-fib? Dr Vergara notified no new orders, continue plan of care.
--- NOTE | 2019-06-23 14:35 | NUR ---
Talked with patients Megan. She was inquiring about the possibility of changing plan of care on Tuesday to comfort care instead of moving forward with trach placement.
[2019-06-23 18:14] LABS: MAGNESIUM 2.2 mg/dL (1.8-2.4); PHOSPHORUS 3.2 mg/dL (2.6-4.7); POTASSIUM 4.3 mmol/L (3.5-5.1)
--- NOTE | 2019-06-23 19:20 | NUR ---
0400 - Warm blankets placed over pt. at 0400 with temp of 96.
--- NOTE | 2019-06-23 19:21 | NUR ---
Temp 100 via TA scan. Ed hugger turned off.
--- NOTE | 2019-06-23 20:03 | NUR ---
Per dialysis nurse Mariana ROSARIO, ok to used prepared dialysate bags for replacement fluids on SCUF.
[2019-06-23] MEDS: SIMVASTATIN 40 MG TABLET. PO SCH (20:32)
[2019-06-23] MEDS: INSULIN GLARGINE SYRINGE. SQ SCH (21:19)
[2019-06-23] MEDS ORDERED: DEXTROSE 70% IV SCH ×21 (22:00)
[2019-06-23] MEDS ORDERED: [UNRECOGNIZED DRUG - OTHER] IV SCH ×11 (22:00)
[2019-06-23] MEDS ORDERED: AMINO ACID IV SCH ×21 (22:00)
[2019-06-23] MEDS ORDERED: TOTAL PARENTERAL NUTRITION IV SCH ×21 (22:00)
[2019-06-23] MEDS ORDERED: [UNRECOGNIZED DRUG - OTHER] IV SCH ×10 (22:00)
[2019-06-23] MEDS: fentaNYL PF VIAL 100 MCG/2 ML VIAL IV PRN (23:17)
[2019-06-24] VITALS (24 sets, daily range): BP systolic 77–134; BP diastolic 44–69
[2019-06-24] MEDS: ALBUMIN HUMAN 25% 100 ML IV SCH ×3 (00:22→12:05)
[2019-06-24] MEDS: fentaNYL PF VIAL 100 MCG/2 ML VIAL IV PRN (05:17)
[2019-06-24] MEDS: MIDAZOLAM HCL/PF 2 MG/2 ML VIAL. IV PRN ×3 (05:17→21:01)
[2019-06-24] MEDS: LEVOTHYROXINE 175 MCG TABLET PO SCH (05:36)
[2019-06-24] MEDS: INSULIN LISPRO 300 UNITS/3 ML VIAL. SQ SCH ×4 (06:00→17:44)
--- NOTE | 2019-06-24 06:04 | PDOC ---
PULMONARY PROGRESS NOTES Subjective on vent, HAD AN EPISODE OF EMESIS 06/22 SOME ASPIRATION, sedated, on fentanyl, precedex small ett secretion Vitals Vital Signs Date Time Temp Pulse Resp B/P (MAP) Pulse Ox O2 Delivery O2 Flow Rate FiO2 06/24/19 05:00 73 15 122/65 (84) 100 Ventilator 06/24/19 04:00 98.6 98.6 Comments ros as mentioned as above discussed w rn other sys otherwise neg on vent alert, HEENT: Other (nc at perrl nose clear oally intubated neck no lad no thyromegaly) Lungs: Other (few rhonchi) Cardiovascular: S1, S2 Abdomen: Other (distended, firm, abdominal wall hernia) Extremities: Other (2+edema, scrotal edema) Skin: Warm Labs Laboratory Tests Test 06/22/19 07:50 06/22/19 12:00 06/22/19 12:05 06/22/19 18:00 O2 Saturation 96 % (92-99) Arterial Blood pH 7.42 (7.35-7.45) Arterial Blood pCO2 at Patient Temp 36 mmHg (35-46) Arterial Blood pO2 at Patient Temp 88 mmHg (65-108) Arterial Blood HCO3 22 mmol/L (21-28) Arterial Blood Base Excess -2 mmol/L (-3-3) FiO2 40 Sodium Level 141 mmol/L (136-145) 142 mmol/L (136-145) Potassium Level 4.5 mmol/L (3.5-5.1) 4.6 mmol/L (3.5-5.1) Chloride Level 108 mmol/L (98-107) 109 mmol/L (98-107) Carbon Dioxide Level 30 mmol/L (21-32) 30 mmol/L (21-32) Anion Gap 3 (6-14) 3 (6-14) Phosphorus Level 2.5 mg/dL (2.6-4.7) 2.4 mg/dL (2.6-4.7) Magnesium Level 2.1 mg/dL (1.8-2.4) 2.1 mg/dL (1.8-2.4) Glucose (Fingerstick) 138 mg/dL (70-99) Test 06/22/19 21:02 06/23/19 00:14 06/23/19 04:00 06/23/19 08:25 Glucose (Fingerstick) 121 mg/dL (70-99) 138 mg/dL (70-99) White Blood Count 11.0 x10^3/uL (4.0-11.0) Red Blood Count 2.77 x10^6/uL (4.30-5.70) Hemoglobin 8.8 g/dL (13.0-17.5) Hematocrit 26.3 % (39.0-53.0) Mean Corpuscular Volume 95 fL (79-100) Mean Corpuscular Hemoglobin 32 pg (25-35) Mean Corpuscular Hemoglobin Concent 33 g/dL (31-37) Red Cell Distribution Width 15.0 % (11.5-14.5) Platelet Count 99 x10^3/uL (140-400) Sodium Level 140 mmol/L (136-145) Potassium Level 4.3 mmol/L (3.5-5.1) Chloride Level 108 mmol/L (98-107) Carbon Dioxide Level 31 mmol/L (21-32) Anion Gap 1 (6-14) Blood Urea Nitrogen 21 mg/dL (8-26) Creatinine 0.9 mg/dL (0.7-1.3) Estimated GFR (Cockcroft-Gault) 81.8 Glucose Level 136 mg/dL (70-99) Calcium Level 7.4 mg/dL (8.5-10.1) Phosphorus Level 2.1 mg/dL (2.6-4.7) Magnesium Level 2.2 mg/dL (1.8-2.4) O2 Saturation 98 % (92-99) Arterial Blood pH 7.43 (7.35-7.45) Arterial Blood pCO2 at Patient Temp 37 mmHg (35-46) Arterial Blood pO2 at Patient Temp 139 mmHg (65-108) Arterial Blood HCO3 24 mmol/L (21-28) Arterial Blood Base Excess 0 mmol/L (-3-3) FiO2 40 Test 06/23/19 12:52 06/23/19 17:35 06/23/19 17:45 Glucose (Fingerstick) 140 mg/dL (70-99) 154 mg/dL (70-99) Sodium Level 141 mmol/L (136-145) Potassium Level 4.3 mmol/L (3.5-5.1) Chloride Level 107 mmol/L (98-107) Carbon Dioxide Level 31 mmol/L (21-32) Anion Gap 3 (6-14) Phosphorus Level 3.2 mg/dL (2.6-4.7) Magnesium Level 2.2 mg/dL (1.8-2.4) Laboratory Tests Test 06/23/19 08:25 06/23/19 12:52 06/23/19 17:35 06/23/19 17:45 O2 Saturation 98 % (92-99) Arterial Blood pH 7.43 (7.35-7.45) Arterial Blood pCO2 at Patient Temp 37 mmHg (35-46) Arterial Blood pO2 at Patient Temp 139 mmHg (65-108) Arterial Blood HCO3 24 mmol/L (21-28) Arterial Blood Base Excess 0 mmol/L (-3-3) FiO2 40 Glucose (Fingerstick) 140 mg/dL (70-99) 154 mg/dL (70-99) Sodium Level 141 mmol/L (136-145) Potassium Level 4.3 mmol/L (3.5-5.1) Chloride Level 107 mmol/L (98-107) Carbon Dioxide Level 31 mmol/L (21-32) Anion Gap 3 (6-14) Phosphorus Level 3.2 mg/dL (2.6-4.7) Magnesium Level 2.2 mg/dL (1.8-2.4) Medications Active Scripts Medications Dose Route/Sig Max Daily Dose Days Date Category Foltx Tablet (B12/Levomefolate Calcium/B-6) 1 Each Tablet 1 Each PO AFTRNOON 06/07/19 Reported Testosterone Cypionate 200 Mg/1 Ml Vial 1 Ml IM Q2WKS 06/07/19 Reported Novolog Mix 70-30 Flexpen Syrn (Insuln Asp Prt/Insulin Aspart) 100 Unit/1 Ml Insuln.pen 1 Unit SQ BIDACBL 06/07/19 Reported Lantus Solostar (Insulin Glargine,Hum.rec.anlog) 100 Unit/1 Ml Insuln.pen 30 Unit SQ QHS 06/07/19 Reported Nifedipine Er (Nifedipine) 60 Mg Tab.er.24 1 Tab PO DAILY 06/07/19 Reported Morphine Sulfate Er (Morphine Sulfate) 60 Mg Tablet.er 1 Tab PO BID 06/07/19 Reported Furosemide 40 Mg Tablet 40 Mg PO DAILY 8/22/19 Reported Finasteride 5 Mg Tablet 1 Tab PO DAILY 06/07/19 Reported Simvastatin 40 Mg Tablet 1 Tab PO QHS 06/07/19 Reported Metoprolol Succinate ( Xl ) (Metoprolol Succinate) 200 Mg Tab.er.24h 1 Tab PO DAILY 06/07/19 Reported Levothyroxine Sodium 175 Mcg Tablet 1 Tab PO DAILY 06/07/19 Reported Losartan-Hctz 100-12.5 Mg Tab (Losartan/Hydrochlorothiazide) 1 Each Tablet 1 Tab PO DAILY 06/07/19 Reported Comments CXR reviewed bilateral lower lobe subsegmental atelectasis and/ or infiltrate.ett ok Impression . 1. Acute Respiratory failure, multifactorial, includes septic shock, colonic ileus 2. septic shock 3. Erosive gastritis./ colonic ileus with recurrent emesis. high risk for aspiration. will not be able to protect his airway post extubation 4. C-Diff 5. Coronary artery disease, status post coronary artery bypass grafting. 6, COLONIC ILEUS 7. abnormal cxr with atelectasis 8. SHOULDER ABSCESS 9. RENATA 10. severe PCM 11. c diff colitis ID NOTE LUE abscess s/p 10 ml removal 06/13. group B strep -S/p Left shoulder open incision and drainage with arthrotomy, debridement of bone and bone cement, and joint irrigation 06/14 G B strep C. diff positive, 06/14 Plan . on vanco for c diff cont vent support, setting reviewed, will decrease sedation, will do sbt off pressor OFF VERSED, / on FANTANYL/ ON PRECEDEX FAILED CPAP TRIAL WITH INCREASE R/R/ HOLD TRIAL TODAY on crrt WILL CONTINUE SUPPORT ultra filtration PER NEPHRO ABG, CXR NOTED OVERALL PROGNOSIS IS GUARDED ANTI BX PER ID D/W RN dr lowe D/W IN DETAIL/ SHE WANTED TO GIVE HIM A CHANCE. OK WITH TRACH. WILL ASSESS TUESDAY. IF NO CHANGE, CONSULT SURGERY HIGH RISK FOR ASPIRATION POST EXTUBATION. prognosis poor discussed w MRAY Ingram MD Jun 24, 2019 06:04
[2019-06-24] MEDS: DEXMEDETOMIDINE 400 MCG in IV NORMAL SALINE 100ML 96 ML IV PRN ×3 (06:15→23:12)
[2019-06-24 06:27] LABS: MAGNESIUM 2.2 mg/dL (1.8-2.4); PHOSPHORUS 3.1 mg/dL (2.6-4.7)
[2019-06-24 06:32] LABS: CALCIUM 7.7 mg/dL (8.5-10.1); CREATININE 1.2 mg/dL (0.7-1.3); GFR 58.7; POTASSIUM 4.2 mmol/L (3.5-5.1)
--- NOTE | 2019-06-24 07:06 | PDOC2 ---
CONSULT Date of Consult Date of Consult DATE: 06/24/19 TIME: 06:48 Reason for Consult Reason for Consult: low plt count Identification/Chief Complaint Chief Complaint low plt count Source Source: Chart review History of Present Illness Reason for Visit: 78 yo M c complicated hospitalization, including GI bleed, surgeries for LUE abs cess, acute resp failure requiring intubation, acute kidney injury requiring CRRT now, who has been noted to have slowly falling plt count. Plt count was 316 on 06/15, then ~150K on 06/16, and has slowly down trended since that day. Pt received daptomycin and flagyl from 06/14 - 06/19/19, then was transitioned to oral vanc and IV Rocephin on 06/19/19. He has been receiving IV PPI since 06/14/19. Past Medical History Cardiovascular: CAD, HTN, Hyperlipidemia, Other (thoracic aneurysm repair) Pulmonary: Other (LEIGH?) CENTRAL NERVOUS SYSTEM: Other (neurofibromatosis) GI: Other (qasim) Hepatobiliary: No pertinent hx Psych: Depression Musculoskeletal: Other Renal/: Chronic renal insuff, Benign prostatic enlarg. Endocrine: Diabetes (2), Hypothyroidism Past Surgical History Past Surgical History: Arthroscopy (remote left reverse total shoulder replacement, right hand surgery), CABG (1999), Other (thoracic aneurysm repair ) Family History Family History: Family History Unknown Social History No ALCOHOL: none Drugs: None Lives: with Family Current Medications Current Medications Current Medications Pantoprazole Sodium (PROTONIX VIAL for IV PUSH) 40 mg BID IVP Last administered on 06/11/19at 09:22; Start 06/07/19 at 21:00; Stop 06/11/19 at 12:41; Status DC Sodium Chloride 1,000 ml @ 75 mls/hr [id number] IV Last administered on 06/09/19at 11:36; Start 06/07/19 at 16:30; Stop 06/09/19 at 12:08; Status DC Bisacodyl (Dulcolax Supp) 10 mg 1X ONCE NM Last administered on 06/07/19at 21:40; Start 06/07/19 at 17:45; Stop 06/07/19 at 17:46; Status DC Hydromorphone HCl (Dilaudid) 1 mg PRN Q4HRS PRN IVP PAIN Last administered on 06/07/19at 18:04; Start 06/07/19 at 17:45; Stop 06/07/19 at 21:48; Status DC Lorazepam (Ativan) 0.5 mg PRN Q6HRS PRN PO ANXIETY / AGITATION; Start 06/07/19 at 18:00; Stop 06/07/19 at 18:14; Status DC Nicotine (Nicoderm Cq 21mg) 1 patch PRN DAILY PRN TD SMOKING CESSATION; Start 06/07/19 at 18:00; Stop 06/07/19 at 18:14; Status DC Hydromorphone HCl (Dilaudid) 2 mg PRN Q3HRS PRN IV PAIN Last administered on 06/14/19at 12:39; Start 06/07/19 at 22:00; Stop 06/14/19 at 23:55; Status DC Ringer's Solution 1,000 ml @ 75 mls/hr [id number] IV Last administered on 06/08/19at 14:01; Start 06/08/19 at 09:15; Stop 06/09/19 at 08:01; Status DC Propofol 20 ml @ As Directed STK-MED ONCE IV ; Start 06/08/19 at 10:20; Stop 06/08/19 at 10:20; Status DC Lidocaine HCl (Lidocaine Pf 2% Vial) 5 ml STK-MED ONCE .ROUTE ; Start 06/08/19 at 10:20; Stop 06/08/19 at 10:20; Status DC Finasteride (Proscar) 5 mg DAILY PO Last administered on 06/22/19at 08:57; Start 06/08/19 at 12:00 Furosemide (Lasix) 40 mg DAILY PO Last administered on 06/12/19at 08:36; Start 06/08/19 at 12:00; Stop 06/14/19 at 13:01; Status DC Levothyroxine Sodium (Synthroid) 175 mcg DAILY06 PO Last administered on 06/24/19 05:36; Start 06/08/19 at 12:00 Simvastatin (Zocor) 40 mg QHS PO Last administered on 06/23/19at 20:32; Start 06/08/19 at 21:00 Testosterone Cypionate (Depo-Testosterone) 200 mg Q2WKS IM ; Start 06/22/19 at 09:00 Vitamin B Complex (Bud B) 1 tab DAILY PO Last administered on 06/22/19 08:57; Start 06/08/19 at 12:00 Insulin Glargine (Lantus Syringe) 30 unit QHS SQ Last administered on 06/23/19at 21:19; Start 06/08/19 at 21:00 Non-Formulary Medication (Insuln Asp Prt/ Insulin Aspart (Novolog Mix 70-30 Flexpen Syrn)) 1 unit BIDACBL SQ ; Start 06/08/19 at 11:30; Stop 06/08/19 at 19:34; Status DC Losartan Potassium (Cozaar) 100 mg DAILY PO Last administered on 06/12/19 08:36; Start 06/08/19 at 12:00; Stop 06/14/19 at 13:01; Status DC Metoprolol Succinate (Toprol Xl) 200 mg DAILY PO Last administered on 06/12/19 08:36; Start 06/08/19 at 12:00; Stop 06/14/19 at 13:01; Status DC Morphine Sulfate (Ms Contin) 60 mg BID PO Last administered on 06/20/19at 11:33; Start 06/08/19 at 12:00 Nifedipine (Procardia Xl) 60 mg DAILY PO Last administered on 06/12/19 08:36; Start 06/08/19 at 12:00; Stop 06/14/19 at 13:01; Status DC Insulin Human Lispro (HumaLOG) 0-5 UNITS TIDWMEALS SQ Last administered on 06/09/19at 11:36; Start 06/08/19 at 17:00; Stop 06/09/19 at 11:38; Status DC Dextrose (Dextrose 50%-Water Syringe) 12.5 gm PRN Q15MIN PRN IV SEE COMMENTS; Start 06/08/19 at 15:30; Stop 06/09/19 at 15:19; Status DC Dextrose 250 ml PRN Q15MIN PRN IV SEE COMMENTS; Start 06/08/19 at 15:30; Stop 06/09/19 at 15:19; Status DC Insulin Human Lispro (HumaLOG) 0-9 UNITS TIDWMEALS SQ Last administered on 06/16/19 08:27; Start 06/09/19 at 12:00; Stop 06/16/19 at 09:54; Status DC Dextrose (Dextrose 50%-Water Syringe) 12.5 gm PRN Q15MIN PRN IV SEE COMMENTS; Start 06/09/19 at 11:45 Dextrose 250 ml PRN Q15MIN PRN IV SEE COMMENTS; Start 06/09/19 at 11:45; Stop 06/09/19 at 15:19; Status DC Pantoprazole Sodium (Protonix) 40 mg DAILYAC PO Last administered on 06/12/19at 08:36; Start 06/12/19 at 07:30; Stop 06/13/19 at 13:27; Status DC Polyethylene Glycol (miraLAX PACKET) 17 gm DAILY PO ; Start 06/12/19 at 09:00; Stop 06/12/19 at 12:28; Status DC Polyethylene Glycol (miraLAX PACKET) 17 gm PRN DAILY PRN PO CONSTIPATION, 1ST CHOICE; Start 06/11/19 at 15:45; Stop 06/20/19 at 11:31; Status DC Bisacodyl (Dulcolax Tab) 5 mg PRN DAILY PRN PO CONSTIPATION, 2ND CHOICE; Start 06/11/19 at 15:45; Stop 06/20/19 at 11:31; Status DC Tamsulosin HCl (Flomax) 0.4 mg QHS PO Last administered on 06/12/19at 21:26; Start 06/12/19 at 21:00; Stop 06/14/19 at 13:01; Status DC Finasteride (Proscar) 5 mg DAILY PO ; Start 06/12/19 at 12:00; Stop 06/13/19 at 09:39; Status DC Sodium Chloride 500 ml @ 500 mls/hr 1X ONCE IV Last administered on 06/13/19at 12:45; Start 06/13/19 at 10:00; Stop 06/13/19 at 10:59; Status DC Ondansetron HCl (Zofran) 4 mg PRN Q6HRS PRN IV NAUSEA/VOMITING; Start 06/13/19 at 09:45; Status UNV Sodium Chloride 1,000 ml @ 125 mls/hr Q8H IV Last administered on 06/14/19at 08:48; Start 06/13/19 at 11:00; Stop 06/15/19 at 07:11; Status DC Ondansetron HCl (Zofran) 4 mg PRN Q4HRS PRN IV NAUSEA/VOMITING Last administered on 06/13/19at 22:15; Start 06/13/19 at 09:45 Ondansetron HCl (Zofran) 4 mg STK-MED ONCE .ROUTE ; Start 06/13/19 at 09:39; Stop 06/13/19 at 09:40; Status DC Daptomycin 560 mg/ Sodium Chloride 50 ml @ 100 mls/hr Q24H IV Last administered on 06/13/19at 16:04; Start 06/13/19 at 14:00; Stop 06/14/19 at 11:15; Status DC Meropenem 1 gm/ Sodium Chloride 100 ml @ 200 mls/hr Q12HR IV Last administered on 06/15/19 07:36; Start 06/13/19 at 15:00; Stop 06/15/19 at 07:39; Status DC Pantoprazole Sodium (PROTONIX VIAL for IV PUSH) 40 mg DAILYAC IVP Last administered on 06/23/19at 08:46; Start 06/14/19 at 07:30 Lidocaine/Sodium Bicarbonate (Buffered Lidocaine 1%) 3 ml STK-MED ONCE .ROUTE ; Start 06/13/19 at 13:59; Stop 06/13/19 at 14:00; Status DC Lidocaine/Sodium Bicarbonate (Buffered Lidocaine 1%) 3 ml 1X ONCE IJ Last administered on 06/13/19at 14:39; Start 06/13/19 at 14:30; Stop 06/13/19 at 14:32; Status DC Amino Acids/ Electrolytes/ Dextrose 1,000 ml @ 80 mls/hr [id number] IV Last administered on 06/15/19at 16:23; Start 06/14/19 at 10:30; Stop 06/15/19 at 21:59; Status DC Daptomycin 560 mg/ Sodium Chloride 50 ml @ 100 mls/hr Q48H IV Last administered on 06/17/19at 14:29; Start 06/15/19 at 14:00; Stop 06/18/19 at 07:56; Status DC Sodium Chloride 500 ml @ 500 mls/hr 1X ONCE IV Last administered on 06/14/19at 11:54; Start 06/14/19 at 11:45; Stop 06/14/19 at 12:44; Status DC Sodium Chloride 500 ml @ 500 mls/hr 1X ONCE IV Last administered on 8/29/19at 12:25; Start 06/14/19 at 11:45; Stop 06/14/19 at 12:44; Status DC Methylnaltrexone [place] (Relistor) 6 mg 1X ONCE SQ Last administered on 06/14/19at 14:15; Start 06/14/19 at 14:00; Stop 06/14/19 at 14:01; Status DC Norepinephrine Bitartrate 250 ml @ 17.398 mls/ hr CONT PRN IV SEE I/O RECORD Last administered on 06/18/19at 17:55; Start 06/14/19 at 14:30 Propofol 20 ml @ As Directed STK-MED ONCE IV ; Start 06/14/19 at 16:17; Stop 06/14/19 at 16:17; Status DC Dexamethasone Sodium Phosphate (Decadron) 4 mg STK-MED ONCE .ROUTE ; Start 06/14/19 at 16:17; Stop 06/14/19 at 16:17; Status DC Famotidine (Pepcid Vial) 20 mg STK-MED ONCE .ROUTE ; Start 06/14/19 at 16:17; Stop 06/14/19 at 16:17; Status DC Lidocaine HCl (Lidocaine Pf 2% Vial) 5 ml STK-MED ONCE .ROUTE ; Start 06/14/19 at 16:17; Stop 06/14/19 at 16:17; Status DC Ondansetron HCl (Zofran) 4 mg STK-MED ONCE .ROUTE ; Start 06/14/19 at 16:17; Stop 06/14/19 at 16:17; Status DC Succinylcholine Chloride (Anectine) 200 mg STK-MED ONCE .ROUTE ; Start 06/14/19 at 16:17; Stop 06/14/19 at 16:17; Status DC Fentanyl Citrate (Fentanyl 2ml Vial) 100 mcg STK-MED ONCE .ROUTE ; Start 06/14/19 at 16:17; Stop 06/14/19 at 16:17; Status DC Rocuronium [place] (Zemuron) 50 mg STK-MED ONCE .ROUTE ; Start 06/14/19 at 16:32; Stop 06/14/19 at 16:32; Status DC Ketamine HCl (Ketamine) 50 mg STK-MED ONCE .ROUTE ; Start 06/14/19 at 17:03; Stop 06/14/19 at 17:03; Status DC Phenylephrine HCl (PHENYLEPHRINE in 0.9% NACL PF) 1 mg STK-MED ONCE IV ; Start 06/14/19 at 17:03; Stop 06/14/19 at 17:04; Status DC Bupivacaine HCl/ Epinephrine Bitart (Sensorcaine-Epi 0.25%-1:[id number] Mpf) 30 ml 1X ONCE INJ ; Start 06/14/19 at 17:45; Stop 06/14/19 at 17:46; Status Cancel Clindamycin Phosphate 50 ml @ As Directed STK-MED ONCE IV ; Start 06/14/19 at 18:07; Stop 06/14/19 at 18:07; Status DC Albumin Human 500 ml @ As Directed STK-MED ONCE IV ; Start 06/14/19 at 18:10; Stop 06/14/19 at 18:11; Status DC Albumin Human 500 ml @ 125 mls/hr 1X ONCE IV Last administered on 06/14/19at 20:00; Start 06/14/19 at 20:00; Stop 06/14/19 at 23:59; Status DC Fentanyl Citrate 30 ml @ 0 mls/hr CONT PRN IV SEE PROTOCOL Last administered on 06/24/19at 04:30; Start 06/14/19 at 20:00 Propofol 100 ml @ 0 mls/hr CONT PRN IV SEE PROTOCOL Last administered on 06/15/19at 10:33; Start 06/14/19 at 20:00 Ephedrine Sulfate (ePHEDrine PF IN SALINE SYRINGE) 50 mg STK-MED ONCE IV ; Start 06/14/19 at 19:21; Stop 06/14/19 at 19:21; Status DC Sodium Chloride 1,000 ml @ 125 mls/hr Q8H IV Last administered on 06/20/19at 06:56; Start 06/15/19 at 06:00; Stop 06/22/19 at 07:11; Status DC Sodium Bicarbonate 50 meq/Sodium Chloride 1,050 ml @ 125 mls/hr 1X ONCE IV Last administered on 06/14/19at 22:34; Start 06/14/19 at 23:00; Stop 06/15/19 at 07:23; Status DC Meropenem 1 gm/ Sodium Chloride 100 ml @ 200 mls/hr DAILY IV Last administered on 06/18/19at 10:55; Start 06/15/19 at 09:00; Stop 06/19/19 at 07:22; Status DC Sodium Chloride 1,000 ml @ 1,000 mls/hr 1X ONCE IV Last administered on 06/15/19at 09:14; Start 06/15/19 at 09:00; Stop 06/15/19 at 09:59; Status DC Sodium Bicarbonate 50 meq/Sodium Chloride 1,050 ml @ 125 mls/hr Q8H24M IV Last administered on 06/16/19at 09:26; Start 06/15/19 at 10:15; Stop 06/16/19 at 18:21; Status DC Heparin Sodium (Porcine) (Heparin Sodium) 10,000 unit STK-MED ONCE .ROUTE ; Start 06/15/19 at 10:18; Stop 06/15/19 at 10:19; Status DC Lidocaine/Sodium Bicarbonate (Buffered Lidocaine 1%) 3 ml STK-MED ONCE .ROUTE ; Start 06/15/19 at 10:19; Stop 06/15/19 at 10:19; Status DC Lidocaine/Sodium Bicarbonate (Buffered Lidocaine 1%) 3 ml 1X ONCE INJ ; Start 06/15/19 at 11:00; Stop 06/15/19 at 11:01; Status DC Heparin Sodium (Porcine) (Heparin Sodium) 2,600 unit 1X ONCE INT CAT ; Start 06/15/19 at 11:00; Stop 06/15/19 at 11:01; Status DC Info (Tpn Per Pharmacy) 1 each PRN DAILY PRN MC SEE COMMENTS Last administered on 06/23/19at 12:27; Start 06/15/19 at 11:30 Sodium Chloride 90 meq/Potassium Chloride 50 meq/ Magnesium Sulfate 10 meq/Calcium Gluconate 10 meq/ Multivitamins 10 ml/Chromium/ Copper/Manganese/ Seleni/Zn 1 ml/ Total Parenteral Nutrition/Amino Acids/Dextrose 1,512 ml @ 63 mls/hr TPN CONT IV Last administered on 06/16/19at 00:19; Start 06/15/19 at 22:00; Stop 06/16/19 at 21:59; Status DC Midazolam HCl 100 ml @ 0 mls/hr CONT PRN IV SEE PROTOCOL Last administered on 06/20/19at 04:10; Start 06/15/19 at 13:00 Sodium Chloride 1,000 ml @ 1,000 mls/hr Q1H PRN IV hypotension; Start 06/15/19 at 13:49; Stop 06/15/19 at 19:48; Status DC Albumin Human 200 ml @ 200 mls/hr 1X PRN PRN IV Hypotension; Start 06/15/19 at 14:00; Stop 06/15/19 at 19:59; Status DC Sodium Chloride 1,000 ml @ 400 mls/hr Q2H30M PRN IV PATENCY; Start 06/15/19 at 13:49; Stop 06/16/19 at 01:48; Status DC Info (PHARMACY MONITORING -- do not chart) 1 each PRN DAILY PRN MC SEE COMMENTS; Start 06/15/19 at 14:00; Stop 06/15/19 at 13:55; Status DC Info (PHARMACY MONITORING -- do not chart) 1 each PRN DAILY PRN MC SEE COMMENTS; Start 06/15/19 at 14:00; Stop 06/20/19 at 07:36; Status DC Vasopressin 40 unit/Dextrose 102 ml @ 6 mls/hr CONT PRN IV SEE I/O RECORD Last administered on 06/23/19at 05:07; Start 06/15/19 at 14:30 Metronidazole 100 ml @ 100 mls/hr Q8HRS IV Last administered on 06/19/19at 06:24; Start 06/15/19 at 17:30; Stop 06/19/19 at 07:22; Status DC Vancomycin HCl (Vancomycin Oral Solution) 125 mg [id number] PO Last administered on 06/23/19at 20:32; Start 06/16/19 at 09:00 Magnesium Sulfate 50 ml @ 25 mls/hr 1X ONCE IV Last administered on 06/16/19at 08:27; Start 06/16/19 at 08:30; Stop 06/16/19 at 10:29; Status DC Info (PHARMACY MONITORING -- do not chart) 1 each PRN DAILY PRN MC SEE COMMENTS; Start 06/16/19 at 09:15; Status UNV Info (PHARMACY MONITORING -- do not chart) 1 each PRN DAILY PRN MC SEE COMMENTS; Start 06/16/19 at 09:15; Status UNV Insulin Human Lispro (HumaLOG) 0-9 UNITS Q6HRS SQ Last administered on 06/23/19at 17:42; Start 06/16/19 at 12:00 Sodium Chloride 90 meq/Potassium Chloride 50 meq/ Magnesium Sulfate 10 meq/Calcium Gluconate 10 meq/ Multivitamins 10 ml/Chromium/ Copper/Manganese/ Seleni/Zn 1 ml/ Total Parenteral Nutrition/Amino Acids/Dextrose/ Fat Emulsion Intravenous 1,512 ml @ 63 mls/hr TPN CONT IV Last administered on 06/16/19at 22:43; Start 06/16/19 at 22:00; Stop 06/17/19 at 21:59; Status DC Sodium Chloride 90 meq/Potassium Chloride 50 meq/ Potassium Phosphate 13.6 mmol/Magnesium Sulfate 10 meq/ Calcium Gluconate 10 meq/ Multivitamins 10 ml/Ch romium/ Copper/Manganese/ Seleni/Zn 1 ml/ Total Parenteral Nutrition/Amino Acids/Dextrose/ Fat Emulsion Intravenous 1,512 ml @ 63 mls/hr TPN CONT IV Last administered on 06/17/19at 21:48; Start 06/17/19 at 22:00; Stop 06/18/19 at 21:59; Status DC Sodium Chloride 90 meq/Potassium Chloride 70 meq/ Potassium Phosphate 13.6 mmol/Magnesium Sulfate 10 meq/ Calcium Gluconate 10 meq/ Multivitamins 10 ml/Chromium/ Copper/Manganese/ Seleni/Zn 1 ml/ Total Parenteral Nutrition/Amino Acids/Dextrose/ Fat Emulsion Intravenous 1,512 ml @ 63 mls/hr TPN CONT IV Last administered on 06/18/19at 22:59; Start 06/18/19 at 22:00; Stop 06/19/19 at 21:59; Status DC Albumin Human 200 ml @ As Directed STK-MED ONCE IV ; Start 06/18/19 at 15:14; Stop 06/18/19 at 15:15; Status DC Sodium Chloride 1,000 ml @ 1,000 mls/hr Q1H PRN IV hypotension; Start 06/18/19 at 15:00; Stop 06/18/19 at 20:59; Status DC Albumin Human 200 ml @ 200 mls/hr 1X PRN PRN IV Hypotension Last administered on 06/18/19at 15:55; Start 06/18/19 at 15:00; Stop 06/18/19 at 20:59; Status DC Sodium Chloride 1,000 ml @ 400 mls/hr Q2H30M PRN IV PATENCY; Start 06/18/19 at 15:00; Stop 06/19/19 at 02:59; Status DC Info (PHARMACY MONITORING -- do not chart) 1 each PRN DAILY PRN MC SEE COMMENTS; Start 06/18/19 at 15:30; Status UNV Info (PHARMACY MONITORING -- do not chart) 1 each PRN DAILY PRN MC SEE COMMENTS; Start 06/18/19 at 15:30; Status UNV Ceftriaxone Sodium (Rocephin) 2 gm Q24H IVP Last administered on 06/23/19at 08:46; Start 06/19/19 at 09:00 Albumin Human 500 ml @ 125 mls/hr 1X ONCE IV Last administered on 06/19/19at 12:28; Start 06/19/19 at 12:30; Stop 06/19/19 at 16:29; Status DC Sodium Chloride 90 meq/Potassium Chloride 85 meq/ Potassium Phosphate 13.6 mmol/Magnesium Sulfate 10 meq/ Calcium Gluconate 10 meq/ Multivitamins 10 ml/Chromium/ Copper/Manganese/ Seleni/Zn 1 ml/ Insulin Human Regular 10 unit/ Total Parenteral Nutrition/Amino Acids/Dextrose/ Fat Emuls... 1,512 ml @ 63 mls/hr TPN CONT IV Last administered on 06/19/19at 22:27; Start 06/19/19 at 22:00; Stop 06/20/19 at 21:59; Status DC Heparin Sodium (Porcine) (Heparin Sodium) 5,000 unit Q12HR SQ Last administered on 06/23/19at 09:04; Start 06/19/19 at 14:00; Stop 06/23/19 at 13:16; Status DC Sodium Chloride 1,000 ml @ 1,000 mls/hr Q1H PRN IV hypotension; Start 06/20/19 at 07:23; Stop 06/20/19 at 13:22; Status DC Albumin Human 200 ml @ 200 mls/hr 1X PRN PRN IV Hypotension Last administered on 06/20/19at 08:57; Start 06/20/19 at 07:30; Stop 06/20/19 at 13:29; Status DC Diphenhydramine HCl (Benadryl) 25 mg 1X PRN PRN IV ITCHING; Start 06/20/19 at 07:30; Stop 06/21/19 at 07:29; Status DC Diphenhydramine HCl (Benadryl) 25 mg 1X PRN PRN IV ITCHING; Start 06/20/19 at 07:30; Stop 06/21/19 at 07:29; Status DC Sodium Chloride 1,000 ml @ 400 mls/hr Q2H30M PRN IV PATENCY; Start 06/20/19 at 07:23; Stop 06/20/19 at 19:22; Status DC Info (PHARMACY MONITORING -- do not chart) 1 each PRN DAILY PRN MC SEE COMMENTS; Start 06/20/19 at 07:30 Sodium Chloride 100 meq/Potassium Chloride 95 meq/ Potassium Phosphate 13.6 mmol/Magnesium Sulfate 10 meq/ Calcium Gluconate 10 meq/ Multivitamins 10 ml/Chromium/ Copper/Manganese/ Seleni/Zn 1 ml/ Insulin Human Regular 10 unit/ Total Parenteral Nutrition/Amino Acids/Dextrose/ Fat Emuls... 1,512 ml @ 63 mls/hr TPN CONT IV Last administered on 06/20/19at 21:54; Start 06/20/19 at 22:00; Stop 06/21/19 at 21:59; Status DC Fentanyl Citrate (Fentanyl 2ml Vial) 25 mcg PRN Q1HR PRN IV SEE COMMENTS; Start 06/20/19 at 16:15 Fentanyl Citrate (Fentanyl 2ml Vial) 50 mcg PRN Q1HR PRN IV SEE COMMENTS Last administered on 06/24/19at 05:17; Start 06/20/19 at 16:15 Dexmedetomidine HCl 400 mcg/ Sodium Chloride 100 ml @ 5.58 mls/hr CONT PRN IV PER PROTOCOL Last administered on 06/24/19at 06:15; Start 06/20/19 at 16:15 Potassium Chloride 20 meq/ Bicarbonate Dialysis Soln w/ out KCl 5,000 ml @ 1,000 mls/hr Q5H IV ; Start 06/20/19 at 17:30; Stop 06/20/19 at 17:19; Status DC Potassium Chloride 20 meq/ Bicarbonate Dialysis Soln w/ out KCl 5,010 ml @ 1,000 mls/hr Q5H1M IV Last administered on 06/22/19at 10:50; Start 06/20/19 at 18:00; Stop 06/22/19 at 11:00; Status DC Potassium Chloride 20 meq/ Bicarbonate Dialysis Soln w/ out KCl 5,010 ml @ 1,500 mls/hr Q3H21M IV Last administered on 06/22/19at 10:55; Start 06/20/19 at 18:00; Stop 06/22/19 at 11:00; Status DC Potassium Chloride 20 meq/ Bicarbonate Dialysis Soln w/ out KCl 5,010 ml @ 1,500 mls/hr Q3H21M IV Last administered on 06/22/19at 10:55; Start 06/20/19 at 18:00; Stop 06/22/19 at 11:00; Status DC Albumin Human 100 ml @ 100 mls/hr 1X ONCE IV Last administered on 06/21/19at 08:57; Start 06/21/19 at 08:15; Stop 06/21/19 at 09:14; Status DC Sodium Chloride 100 meq/Potassium Chloride 95 meq/ Potassium Phosphate 20.4 mmol/Magnesium Sulfate 10 meq/ Calcium Gluconate 10 meq/ Multivitamins 10 ml/Chromium/ Copper/Manganese/ Seleni/Zn 1 ml/ Insulin Human Regular 10 unit/ Total Parenteral Nutrition/Amino Acids/Dextrose/ Fat Emuls... 1,300 ml @ 54.167 mls/ hr TPN CONT IV Last administered on 06/21/19at 22:12; Start 06/21/19 at 22:00; Stop 06/22/19 at 21:59; Status DC Potassium Chloride 15 meq/ Bicarbonate Dialysis Soln w/ out KCl 5,007.5 ml @ 1,000 mls/ hr Q5H1M IV Last administered on 06/23/19at 08:46; Start 06/22/19 at 10:00; Stop 06/23/19 at 14:20; Status DC Potassium Chloride 15 meq/ Bicarbonate Dialysis Soln w/ out KCl 5,007.5 ml @ 1,500 mls/ hr Q3H21M IV Last administered on 06/23/19at 12:03; Start 06/22/19 at 10:00; Stop 06/23/19 at 14:20; Status DC Potassium Chloride 15 meq/ Bicarbonate Dialysis Soln w/ out KCl 5,007.5 ml @ 1,500 mls/ hr Q3H21M IV Last administered on 06/23/19at 12:05; Start 06/22/19 at 08:00; Stop 06/23/19 at 14:20; Status DC Midazolam HCl (Versed) 2 mg PRN Q6HRS PRN IV SEDATION Last administered on 06/24/19at 05:17; Start 06/22/19 at 13:30 Sodium Chloride 100 meq/Sodium Phosphate 10 mmol/ Potassium Chloride 95 meq/ Potassium Phosphate 20.4 mmol/Magnesium Sulfate 10 meq/ Calcium Gluconate 2 meq/ Multivitamins 10 ml/Chromium/ Copper/Manganese/ Seleni/Zn 1 ml/ Insulin Human Regular 10 unit/ Total Parenteral Nutrition/Am... 1,300 ml @ 54.167 mls/ hr TPN CONT IV Last administered on 06/22/19at 21:50; Start 06/22/19 at 22:00; Stop 06/23/19 at 21:59; Status DC Albumin Human 100 ml @ 100 mls/hr Q6HRS IV Last administered on 06/24/19at 05:36; Start 06/23/19 at 08:15; Stop 06/24/19 at 12:59 Sodium Phosphate 20 mmol/Dextrose 256.6667 ml @ 64.153 m... 1X ONCE IV Last administered on 06/23/19at 09:04; Start 06/23/19 at 09:00; Stop 06/23/19 at 13:00; Status DC Sodium Chloride 100 meq/Sodium Phosphate 20 mmol/ Potassium Chloride 95 meq/ Potassium Phosphate 20.4 mmol/Magnesium Sulfate 10 meq/ Multivitamins 10 ml/Chromium/ Copper/Manganese/ Seleni/Zn 1 ml/ Insulin Human Regular 10 unit/ Total Parenteral Nutrition/Amino Acids/Dextrose/ Fat Emuls... 1,300 ml @ 54.167 mls/ hr TPN CONT IV ; Start 06/23/19 at 22:00; Stop 06/23/19 at 12:26; Status DC Sodium Chloride 100 meq/Potassium Phosphate 20.4 mmol/Magnesium Sulfate 10 meq/ Calcium Gluconate 10 meq/ Multivitamins 10 ml/Chromium/ Copper/Manganese/ Seleni/Zn 1 ml/ Insulin Human Regular 10 unit/ Total Parenteral Nutrition/Amino Acids/Dextrose/ Fat Emulsion Intravenous 1,300 ml @ 54.167 mls/ hr TPN CONT IV Last administered on 06/23/19at 21:35; Start 06/23/19 at 22:00; Stop 06/24/19 at 21:59 Active Scripts Active Reported Foltx Tablet (B12/Levomefolate Calcium/B-6) 1 Each Tablet 1 Each PO AFTRNOON Testosterone Cypionate 200 Mg/1 Ml Vial 1 Ml IM Q2WKS Novolog Mix 70-30 Flexpen Syrn (Insuln Asp Prt/Insulin Aspart) 100 Unit/1 Ml Insuln.pen 1 Unit SQ BIDACBL Lantus Solostar (Insulin Glargine,Hum.rec.anlog) 100 Unit/1 Ml Insuln.pen 30 Unit SQ QHS Nifedipine Er (Nifedipine) 60 Mg Tab.er.24 1 Tab PO DAILY Morphine Sulfate Er (Morphine Sulfate) 60 Mg Tablet.er 1 Tab PO BID Furosemide 40 Mg Tablet 40 Mg PO DAILY Finasteride 5 Mg Tablet 1 Tab PO DAILY Simvastatin 40 Mg Tablet 1 Tab PO QHS Metoprolol Succinate ( Xl ) (Metoprolol Succinate) 200 Mg Tab.er.24h 1 Tab PO DAILY Levothyroxine Sodium 175 Mcg Tablet 1 Tab PO DAILY Losartan-Hctz 100-12.5 Mg Tab (Losartan/Hydrochlorothiazide) 1 Each Tablet 1 Tab PO DAILY Allergies Allergies: Coded Allergies: Penicillins (Verified Allergy, Intermediate, 06/14/19) tapentadol (Verified Allergy, Intermediate, 06/14/19) ROS General: YES: Other (unable to be obtained due to clinical situation) Physical Exam General: Other (intubated and awake this morning) HEENT: Atraumatic Abdomen: Other (midline hernia reducible) Extremities: Other (anasarca) MUSCULOSKELETAL: Other (no bleeding noted from any orifice or around dialysis c ath in R neck or triple lumen in L neck; significant joint deformities noted B hands/feet) Vitals VITALS Vital Signs Date Time Temp Pulse Resp B/P (MAP) Pulse Ox O2 Delivery O2 Flow Rate FiO2 06/24/19 06:00 65 15 84/48 (60) 100 Ventilator 06/24/19 04:00 98.6 98.6 Labs Labs Plt count was 316 on 06/15, then ~150K on 06/16, and has slowly down trended since that day. Pt received daptomycin and flagyl from 06/14 - 06/19/19, then was transitioned to oral vanc and IV Rocephin on 06/19/19. He has been receiving IV PPI since 06/14/19. Laboratory Tests Test 06/22/19 07:50 06/22/19 12:00 06/22/19 12:05 06/22/19 18:00 O2 Saturation 96 % (92-99) Arterial Blood pH 7.42 (7.35-7.45) Arterial Blood pCO2 at Patient Temp 36 mmHg (35-46) Arterial Blood pO2 at Patient Temp 88 mmHg (65-108) Arterial Blood HCO3 22 mmol/L (21-28) Arterial Blood Base Excess -2 mmol/L (-3-3) FiO2 40 Sodium Level 141 mmol/L (136-145) 142 mmol/L (136-145) Potassium Level 4.5 mmol/L (3.5-5.1) 4.6 mmol/L (3.5-5.1) Chloride Level 108 mmol/L (98-107) 109 mmol/L (98-107) Carbon Dioxide Level 30 mmol/L (21-32) 30 mmol/L (21-32) Anion Gap 3 (6-14) 3 (6-14) Phosphorus Level 2.5 mg/dL (2.6-4.7) 2.4 mg/dL (2.6-4.7) Magnesium Level 2.1 mg/dL (1.8-2.4) 2.1 mg/dL (1.8-2.4) Glucose (Fingerstick) 138 mg/dL (70-99) Test 06/22/19 21:02 06/23/19 00:14 06/23/19 04:00 06/23/19 08:25 Glucose (Fingerstick) 121 mg/dL (70-99) 138 mg/dL (70-99) White Blood Count 11.0 x10^3/uL (4.0-11.0) Red Blood Count 2.77 x10^6/uL (4.30-5.70) Hemoglobin 8.8 g/dL (13.0-17.5) Hematocrit 26.3 % (39.0-53.0) Mean Corpuscular Volume 95 fL (79-100) Mean Corpuscular Hemoglobin 32 pg (25-35) Mean Corpuscular Hemoglobin Concent 33 g/dL (31-37) Red Cell Distribution Width 15.0 % (11.5-14.5) Platelet Count 99 x10^3/uL (140-400) Sodium Level 140 mmol/L (136-145) Potassium Level 4.3 mmol/L (3.5-5.1) Chloride Level 108 mmol/L (98-107) Carbon Dioxide Level 31 mmol/L (21-32) Anion Gap 1 (6-14) Blood Urea Nitrogen 21 mg/dL (8-26) Creatinine 0.9 mg/dL (0.7-1.3) Estimated GFR (Cockcroft-Gault) 81.8 Glucose Level 136 mg/dL (70-99) Calcium Level 7.4 mg/dL (8.5-10.1) Phosphorus Level 2.1 mg/dL (2.6-4.7) Magnesium Level 2.2 mg/dL (1.8-2.4) O2 Saturation 98 % (92-99) Arterial Blood pH 7.43 (7.35-7.45) Arterial Blood pCO2 at Patient Temp 37 mmHg (35-46) Arterial Blood pO2 at Patient Temp 139 mmHg (65-108) Arterial Blood HCO3 24 mmol/L (21-28) Arterial Blood Base Excess 0 mmol/L (-3-3) FiO2 40 Test 06/23/19 12:52 06/23/19 17:35 06/23/19 17:45 06/24/19 05:45 Glucose (Fingerstick) 140 mg/dL (70-99) 154 mg/dL (70-99) Sodium Level 141 mmol/L (136-145) 143 mmol/L (136-145) Potassium Level 4.3 mmol/L (3.5-5.1) 4.2 mmol/L (3.5-5.1) Chloride Level 107 mmol/L (98-107) 109 mmol/L (98-107) Carbon Dioxide Level 31 mmol/L (21-32) 30 mmol/L (21-32) Anion Gap 3 (6-14) 4 (6-14) Phosphorus Level 3.2 mg/dL (2.6-4.7) 3.1 mg/dL (2.6-4.7) Magnesium Level 2.2 mg/dL (1.8-2.4) 2.2 mg/dL (1.8-2.4) Blood Urea Nitrogen 27 mg/dL (8-26) Creatinine 1.2 mg/dL (0.7-1.3) Estimated GFR (Cockcroft-Gault) 58.7 Glucose Level 81 mg/dL (70-99) Calcium Level 7.7 mg/dL (8.5-10.1) Images Images CT ab/pel and US abdomen recently reported no hepatosplenomegaly Assessment/Plan Assessment/Plan 78 yo M c plt count 99K on 06/23/19, slowly downtrending over last week and a half, with concerns by primary team for HUGH. Unlikely to be HUGH, but much more likely to be multifactorial in nature due to new antibiotics, PPIs, CRRT, vasopressors, and/or sepsis in general, amongst the many reasons. Do not think we need to avoid heparin, nor is the plt count drastic enough to warrant changes in any of the other supportive meds for now. Recommend checking CBCs daily to follow trend, but no need to check for HUGH- specific labs as of the moment. I would recommend putting him back on the heparin 5000U BID for now. Thanks for consult, Hien, cell [phone] SOO AGUAYO MD Jun 24, 2019 07:06
[2019-06-24] MEDS: FINASTERIDE 5 MG TABLET. PO SCH (07:35)
[2019-06-24] MEDS: MORPHINE ER 30 MG TABLET.ER PO SCH ×2 (07:35→21:00)
--- NOTE | 2019-06-24 07:36 | NUR ---
Non administered 0900 PO morphine ER and Finasteride. Patient currently with OG tube. Unable to crush meds.
[2019-06-24 07:56] LABS: BASO % 0 % (0-3); EOS % 1 % (0-3); HEMATOCRIT 21.4 % (39.0-53.0); HEMOGLOBIN 7.2 g/dL (13.0-17.5); LYMPH # 1.2 x10^3/uL (1.0-4.8); LYMPH % 14 % (24-48); MEAN CORPUSCULAR HEMOGLOBIN 32 pg (25-35); MEAN CORPUSCULAR HGB CONC 34 g/dL (31-37); MEAN CORPUSCULAR VOLUME 95 fL (79-100); MONO # 0.5 x10^3/uL (0.0-1.1); MONO % 6 % (0-9); NEUT % 80 % (31-73); PLATELET COUNT 107 x10^3/uL (140-400); RED BLOOD COUNT 2.26 x10^6/uL (4.30-5.70); RED CELL DISTRIBUTION WIDTH 14.6 % (11.5-14.5); WHITE BLOOD COUNT 8.8 x10^3/uL (4.0-11.0)
[2019-06-24] MEDS: PANTOPRAZOLE IV PUSH 40 MG VIAL. IVP SCH (08:14)
[2019-06-24] MEDS: VANCOMYCIN 125 MG/2.5 ML ORAL SOLUTION. PO SCH ×4 (08:14→21:01)
[2019-06-24] MEDS: cefTRIAXone IV Push 2 GM VIAL. IVP SCH (08:15)
[2019-06-24] MEDS: VITAMIN B COMPLEX TABLET. PO SCH (08:15)
[2019-06-24] MEDS: HEPARIN for SUB-Q USE 5,000 UNIT/ML VIAL. SQ SCH ×2 (08:17→21:19)
--- NOTE | 2019-06-24 08:29 | RAD ---
AP portable chest radiograph 06/24/2019 Clinical History: Respiratory failure. An AP erect portable digital radiograph of the chest was obtained. Comparison study is dated 06/23/2019. The ET tube, NG tube, left internal jugular central venous catheter right internal jugular large bore central venous catheter are unchanged in position. The cardiac silhouette is mildly enlarged. The thoracic aorta is tortuous. Atherosclerotic calcification of the thoracic aorta is seen. Subsegmental atelectasis seen involving both lower lobes essentially unchanged. A Skinfold overlies and left lateral chest. No pleural effusion or definite pneumothorax is seen. The osseous structures are unchanged. Patient is post left shoulder joint replacement. Impression: Bilateral lower lobe subsegmental atelectasis essentially unchanged Electronically signed by: Kervin Segovia MD (06/24/2019 8:26 AM) [facility]
--- NOTE | 2019-06-24 08:36 | PDOC ---
Dialysis Progress Note Dialysis Note Dialysis Note Seen on CRRT/ SCUF tolerating treatment Okay so far Patient received IV albumin and is now off of pressors. He continues to tolerate 100 mL and out ultrafiltration at this time General Appearance: sedated and intubated on the vent - opens eyes Neck: No JVD or JVP, Chest: CTA Nitesh - distal Heart: S1 S2 Abdomen - appears distended with no BS Ext : ++ Edema x 2, improved edema in upper extremities ARF/ ATN + Anasarca : ct with SCUF for now with IV albumin as ordered . Electrolytes are appropriate for the time the . TPN was changed to renal based TPN dec Plts -appreciate hematology input Vitals Vital Signs Vital Signs Date Time Temp Pulse Resp B/P (MAP) Pulse Ox O2 Delivery O2 Flow Rate FiO2 06/24/19 07:00 56 12 97/47 (64) 100 Ventilator 06/24/19 04:00 98.6 98.6 06/22/19 18:00 2.0 Labs Last Labs Laboratory Tests Test 06/22/19 12:00 06/22/19 12:05 06/22/19 18:00 06/22/19 21:02 Sodium Level 141 mmol/L (136-145) 142 mmol/L (136-145) Potassium Level 4.5 mmol/L (3.5-5.1) 4.6 mmol/L (3.5-5.1) Chloride Level 108 mmol/L (98-107) 109 mmol/L (98-107) Carbon Dioxide Level 30 mmol/L (21-32) 30 mmol/L (21-32) Anion Gap 3 (6-14) 3 (6-14) Phosphorus Level 2.5 mg/dL (2.6-4.7) 2.4 mg/dL (2.6-4.7) Magnesium Level 2.1 mg/dL (1.8-2.4) 2.1 mg/dL (1.8-2.4) Glucose (Fingerstick) 138 mg/dL (70-99) 121 mg/dL (70-99) Test 06/23/19 00:14 06/23/19 04:00 06/23/19 08:25 06/23/19 12:52 Glucose (Fingerstick) 138 mg/dL (70-99) 140 mg/dL (70-99) White Blood Count 11.0 x10^3/uL (4.0-11.0) Red Blood Count 2.77 x10^6/uL (4.30-5.70) Hemoglobin 8.8 g/dL (13.0-17.5) Hematocrit 26.3 % (39.0-53.0) Mean Corpuscular Volume 95 fL (79-100) Mean Corpuscular Hemoglobin 32 pg (25-35) Mean Corpuscular Hemoglobin Concent 33 g/dL (31-37) Red Cell Distribution Width 15.0 % (11.5-14.5) Platelet Count 99 x10^3/uL (140-400) Sodium Level 140 mmol/L (136-145) Potassium Level 4.3 mmol/L (3.5-5.1) Chloride Level 108 mmol/L (98-107) Carbon Dioxide Level 31 mmol/L (21-32) Anion Gap 1 (6-14) Blood Urea Nitrogen 21 mg/dL (8-26) Creatinine 0.9 mg/dL (0.7-1.3) Estimated GFR (Cockcroft-Gault) 81.8 Glucose Level 136 mg/dL (70-99) Calcium Level 7.4 mg/dL (8.5-10.1) Phosphorus Level 2.1 mg/dL (2.6-4.7) Magnesium Level 2.2 mg/dL (1.8-2.4) O2 Saturation 98 % (92-99) Arterial Blood pH 7.43 (7.35-7.45) Arterial Blood pCO2 at Patient Temp 37 mmHg (35-46) Arterial Blood pO2 at Patient Temp 139 mmHg (65-108) Arterial Blood HCO3 24 mmol/L (21-28) Arterial Blood Base Excess 0 mmol/L (-3-3) FiO2 40 Test 06/23/19 17:35 06/23/19 17:45 06/23/19 20:35 06/24/19 00:18 Glucose (Fingerstick) 154 mg/dL (70-99) 138 mg/dL (70-99) 113 mg/dL (70-99) Sodium Level 141 mmol/L (136-145) Potassium Level 4.3 mmol/L (3.5-5.1) Chloride Level 107 mmol/L (98-107) Carbon Dioxide Level 31 mmol/L (21-32) Anion Gap 3 (6-14) Phosphorus Level 3.2 mg/dL (2.6-4.7) Magnesium Level 2.2 mg/dL (1.8-2.4) Test 06/24/19 05:45 06/24/19 07:08 Sodium Level 143 mmol/L (136-145) Potassium Level 4.2 mmol/L (3.5-5.1) Chloride Level 109 mmol/L (98-107) Carbon Dioxide Level 30 mmol/L (21-32) Anion Gap 4 (6-14) Blood Urea Nitrogen 27 mg/dL (8-26) Creatinine 1.2 mg/dL (0.7-1.3) Estimated GFR (Cockcroft-Gault) 58.7 Glucose Level 81 mg/dL (70-99) Calcium Level 7.7 mg/dL (8.5-10.1) Phosphorus Level 3.1 mg/dL (2.6-4.7) Magnesium Level 2.2 mg/dL (1.8-2.4) White Blood Count 8.8 x10^3/uL (4.0-11.0) Red Blood Count 2.26 x10^6/uL (4.30-5.70) Hemoglobin 7.2 g/dL (13.0-17.5) Hematocrit 21.4 % (39.0-53.0) Mean Corpuscular Volume 95 fL (79-100) Mean Corpuscular Hemoglobin 32 pg (25-35) Mean Corpuscular Hemoglobin Concent 34 g/dL (31-37) Red Cell Distribution Width 14.6 % (11.5-14.5) Platelet Count 107 x10^3/uL (140-400) Neutrophils (%) (Auto) 80 % (31-73) Lymphocytes (%) (Auto) 14 % (24-48) Monocytes (%) (Auto) 6 % (0-9) Eosinophils (%) (Auto) 1 % (0-3) Basophils (%) (Auto) 0 % (0-3) Neutrophils # (Auto) 7.0 x10^3/uL (1.8-7.7) Lymphocytes # (Auto) 1.2 x10^3/uL (1.0-4.8) Monocytes # (Auto) 0.5 x10^3/uL (0.0-1.1) Eosinophils # (Auto) 0.0 x10^3/uL (0.0-0.7) Basophils # (Auto) 0.0 x10^3/uL (0.0-0.2) Laboratory Tests Test 06/23/19 12:52 06/23/19 17:35 06/23/19 17:45 06/23/19 20:35 Glucose (Fingerstick) 140 mg/dL (70-99) 154 mg/dL (70-99) 138 mg/dL (70-99) Sodium Level 141 mmol/L (136-145) Potassium Level 4.3 mmol/L (3.5-5.1) Chloride Level 107 mmol/L (98-107) Carbon Dioxide Level 31 mmol/L (21-32) Anion Gap 3 (6-14) Phosphorus Level 3.2 mg/dL (2.6-4.7) Magnesium Level 2.2 mg/dL (1.8-2.4) Test 06/24/19 00:18 06/24/19 05:45 06/24/19 07:08 Glucose (Fingerstick) 113 mg/dL (70-99) Sodium Level 143 mmol/L (136-145) Potassium Level 4.2 mmol/L (3.5-5.1) Chloride Level 109 mmol/L (98-107) Carbon Dioxide Level 30 mmol/L (21-32) Anion Gap 4 (6-14) Blood Urea Nitrogen 27 mg/dL (8-26) Creatinine 1.2 mg/dL (0.7-1.3) Estimated GFR (Cockcroft-Gault) 58.7 Glucose Level 81 mg/dL (70-99) Calcium Level 7.7 mg/dL (8.5-10.1) Phosphorus Level 3.1 mg/dL (2.6-4.7) Magnesium Level 2.2 mg/dL (1.8-2.4) White Blood Count 8.8 x10^3/uL (4.0-11.0) Red Blood Count 2.26 x10^6/uL (4.30-5.70) Hemoglobin 7.2 g/dL (13.0-17.5) Hematocrit 21.4 % (39.0-53.0) Mean Corpuscular Volume 95 fL (79-100) Mean Corpuscular Hemoglobin 32 pg (25-35) Mean Corpuscular Hemoglobin Concent 34 g/dL (31-37) Red Cell Distribution Width 14.6 % (11.5-14.5) Platelet Count 107 x10^3/uL (140-400) Neutrophils (%) (Auto) 80 % (31-73) Lymphocytes (%) (Auto) 14 % (24-48) Monocytes (%) (Auto) 6 % (0-9) Eosinophils (%) (Auto) 1 % (0-3) Basophils (%) (Auto) 0 % (0-3) Neutrophils # (Auto) 7.0 x10^3/uL (1.8-7.7) Lymphocytes # (Auto) 1.2 x10^3/uL (1.0-4.8) Monocytes # (Auto) 0.5 x10^3/uL (0.0-1.1) Eosinophils # (Auto) 0.0 x10^3/uL (0.0-0.7) Basophils # (Auto) 0.0 x10^3/uL (0.0-0.2) JENNIFER PEACE MD Jun 24, 2019 08:36
--- NOTE | 2019-06-24 08:39 | PDOC ---
Infectious Disease Note Subjective Subjective Uneventful night More awake this morning Remains intubated, FiO2 40% No fevers last 24 hours Mucoid type stool x 1 TPN Vital Sign Vital Signs Vital Signs Date Time Temp Pulse Resp B/P (MAP) Pulse Ox O2 Delivery O2 Flow Rate FiO2 06/24/19 07:00 56 12 97/47 (64) 100 Ventilator 06/24/19 04:00 98.6 98.6 Physical Exam PHYSICAL EXAM GENERAL: Orally intubated, awake, CRRT - bear hugger - off HEENT: Pupils are equal, NGT, ETT LUNGS: Improved aeration HEART: S1, S2. irregular ABDOMEN: Obese, soft + BS. Rectal tube out : Bledsoe. scrotal edema EXTREMITIES: Generalized edema. Left shoulder incision well-approx/thiago, clean LLE bandaged SKIN: Without signs of rash NEUROLOGIC: Awake, calm Temp HDC (06/15) [facility] Labs Lab Laboratory Tests Test 06/23/19 12:52 06/23/19 17:35 06/23/19 17:45 06/23/19 20:35 Glucose (Fingerstick) 140 mg/dL (70-99) 154 mg/dL (70-99) 138 mg/dL (70-99) Sodium Level 141 mmol/L (136-145) Potassium Level 4.3 mmol/L (3.5-5.1) Chloride Level 107 mmol/L (98-107) Carbon Dioxide Level 31 mmol/L (21-32) Anion Gap 3 (6-14) Phosphorus Level 3.2 mg/dL (2.6-4.7) Magnesium Level 2.2 mg/dL (1.8-2.4) Test 06/24/19 00:18 06/24/19 05:45 06/24/19 07:08 Glucose (Fingerstick) 113 mg/dL (70-99) Sodium Level 143 mmol/L (136-145) Potassium Level 4.2 mmol/L (3.5-5.1) Chloride Level 109 mmol/L (98-107) Carbon Dioxide Level 30 mmol/L (21-32) Anion Gap 4 (6-14) Blood Urea Nitrogen 27 mg/dL (8-26) Creatinine 1.2 mg/dL (0.7-1.3) Estimated GFR (Cockcroft-Gault) 58.7 Glucose Level 81 mg/dL (70-99) Calcium Level 7.7 mg/dL (8.5-10.1) Phosphorus Level 3.1 mg/dL (2.6-4.7) Magnesium Level 2.2 mg/dL (1.8-2.4) White Blood Count 8.8 x10^3/uL (4.0-11.0) Red Blood Count 2.26 x10^6/uL (4.30-5.70) Hemoglobin 7.2 g/dL (13.0-17.5) Hematocrit 21.4 % (39.0-53.0) Mean Corpuscular Volume 95 fL (79-100) Mean Corpuscular Hemoglobin 32 pg (25-35) Mean Corpuscular Hemoglobin Concent 34 g/dL (31-37) Red Cell Distribution Width 14.6 % (11.5-14.5) Platelet Count 107 x10^3/uL (140-400) Neutrophils (%) (Auto) 80 % (31-73) Lymphocytes (%) (Auto) 14 % (24-48) Monocytes (%) (Auto) 6 % (0-9) Eosinophils (%) (Auto) 1 % (0-3) Basophils (%) (Auto) 0 % (0-3) Neutrophils # (Auto) 7.0 x10^3/uL (1.8-7.7) Lymphocytes # (Auto) 1.2 x10^3/uL (1.0-4.8) Monocytes # (Auto) 0.5 x10^3/uL (0.0-1.1) Eosinophils # (Auto) 0.0 x10^3/uL (0.0-0.7) Basophils # (Auto) 0.0 x10^3/uL (0.0-0.2) Impression: Bilateral lower lobe subsegmental atelectasis essentially unchanged Micro 06/13/19 Blood Culture - Preliminary, Resulted NO GROWTH AFTER 4 DAYS Left shoulder AEROBIC RES 1 Preliminary Beta hemolytic Streptococcus, group B AFB CULTURE GRAM STAIN Final Negative 06/14. GRAM STAIN RES 2 Final Comment Gram positive cocci in pairs and chains. Objective Assessment LUE abscess s/p 10 ml removal 06/13. group B strep -S/p Left shoulder open incision and drainage with arthrotomy, debridement of bone and bone cement, and joint irrigation 06/14 G B strep C. diff positive, 06/14 PCN allergy - Hives - believes has tolerated Cephalosporins per his RENATA requiring HD, on vasopressin off levophed Post op resp failure - intubated - Pulm following Leukocytosis - resolved ? Tom[place]awk syndrome - GI following CAD - Cardiology following H/o MRSA H/o Group B strep sepsis Erosive Gastritis s/p EGD 06/08 Urinary retention - Bledsoe placed 06/12 Fractures of 2 superior mediastinal wires Plan Plan of Care Rocephin and PO vanc Added IV Flagyl 06/23 with ? aspiration and ? if Vanc getting in Monitor labs/temp Contact isolation D/w nursing D/w Dr. Hancock Critically ill long term care administrator prognosis poor Palliative care consulted Attending Co-Sign Attending Co-Sign The patient was seen and interviewed as well as examined at the bedside. The chart was reviewed. The case was discussed. Agree with the plan of care. LALO SCHWARZ APRN Jun 24, 2019 08:39 RANDEE GARRETT MD Jun 24, 2019 12:27
[2019-06-24 09:10] LABS: BASE EXCESS ABG 0 mmol/L (-3-3); HCO3 ABG 25 mmol/L (21-28); PCO2 ABG 38 mmHg (35-46); PO2 ABG 132 mmHg (65-108); SAT O2 ABG 97 % (92-99)
[2019-06-24 09:11] LABS: FIO2 ABG 40
[2019-06-24] MEDS: TPN PER PHARMACY MC PRN (09:46)
--- NOTE | 2019-06-24 09:46 | NUR ---
Pharmacy TPN Dosing Note S: ROSLYN MOORE is a 78 year old M Currently receiving Central Continuous TPN started 06/15/19 B:Pertinent PMH: Duodenal ulcer, Ileus Height: 6 feet, 0 inches Weight: 113.547978 kg Current diet: NPO LABS: Sodium: 143 Potassium: 4.2 Chloride: 109 Calcium: 7.7 Corrected Calcium: 9.86 Magnesium: 2.2 CO2: 30 SCr: 1.2 Glucose: 81 Albumin: 1.3 AST: 16 ALT: 7 TPN FORMULA: TPN TYPE: Central Continuous AMINO ACIDS: 110 gm DEXTROSE: 195 gm LIPIDS: 20 gm SODIUM CHLORIDE: 100 mEq SODIUM ACETATE: mEq SODIUM PHOSPHATE: . mmol POTASSIUM CHLORIDE: . mEq POTASSIUM ACETATE: mEq POTASSIUM PHOSPHATE: 20.4 mmol MAGNESIUM: 10 mEq CALCIUM: 10 mEq INSULIN: . units MULTIPLE VITAMIN: 10 ml TRACE ELEMENTS: 1 ml(s) TPN PLAN: Pt is continuing on SCUF; electrolytes are looking stable and WNLs, will not change in TPN; glucose only 81 this morning, will remove the 10units of insulin and continue to adjust with sliding scale; labs in the am R: Continue TPN as written above. Will monitor electrolytes, glucose, and tolerance to TPN. JEANETTE ESCALONA [facility], 06/24/19 0948
[2019-06-24 10:14] LABS: BASE EXCESS ABG 1 mmol/L (-3-3); HCO3 ABG 26 mmol/L (21-28); PCO2 ABG 39 mmHg (35-46); PO2 ABG 134 mmHg (65-108); SAT O2 ABG 97 % (92-99)
--- NOTE | 2019-06-24 10:42 | NUR ---
CPAP trial at 0900. Trial ended at 1000. ABG results text to Dr Lopez. Orders to put patient back on Assist Control.
[2019-06-24 10:55] LABS: FIO2 ABG 40
[2019-06-24] MEDS ORDERED: DEXTROSE 50% 25 GM / 50ML DISP.SYRIN. IV ONE (11:45)
[2019-06-24 12:09] LABS: HEMATOCRIT 22.2 % (39.0-53.0); HEMOGLOBIN 7.6 g/dL (13.0-17.5)
[2019-06-24 17:50] LABS: HEMATOCRIT 21.8 % (39.0-53.0); HEMOGLOBIN 7.3 g/dL (13.0-17.5)
[2019-06-24 18:02] LABS: MAGNESIUM 2.2 mg/dL (1.8-2.4); PHOSPHORUS 3.5 mg/dL (2.6-4.7)
[2019-06-24 19:27] LABS: CALCIUM 8.7 mg/dL (8.5-10.1); CREATININE 1.3 mg/dL (0.7-1.3); GFR 53.5; POTASSIUM 4.4 mmol/L (3.5-5.1)
--- NOTE | 2019-06-24 20:42 | PN ---
DATE: 06/24/2019 SUBJECTIVE: The patient is resting slightly propped up in bed, in no apparent respiratory distress. He continued to be intubated, mechanically ventilated. He continued to be on Precedex and fentanyl drip; however, he does open his eyes, tracks and responds appropriately. He continued to be on CRRT and extremely oliguric. Has had, however, no further episodes of nausea and vomiting. PHYSICAL EXAMINATION: GENERAL: On examining him, he looked pale, but no jaundice, cyanosis or thyromegaly. No jugular venous distention, but generalized anasarca. VITAL SIGNS: His heart rate was 85, blood pressure was 107/50, temperature was 98.6, respiratory rate was 12 and oxygen saturation was 100% on FiO2 of 40%. HEAD, EYES, EARS, NOSE AND THROAT: Showed normocephalic, atraumatic. He has a nasogastric tube and orotracheal tube in place. NECK: Supple. HEART: Showed normal first and second heart sounds with no gallop or murmur. CHEST: Clear to auscultation. No crepitation or rhonchi. ABDOMEN: Distended, soft, nontender. NEUROLOGIC: He was awake, alert, responding appropriately. All cranial nerves are intact. He moves upper extremities to much good extent than lower extremities. His intake over the last 24 hours was 1140, output was 1750. LABORATORY DATA: Blood gas this morning showed a pH of 7.43, pCO2 of 37, pO2 of 139, bicarbonate 24, oxygen saturation was 98% on FiO2 of 40%. His white cell count was 8800, hemoglobin 7.2, hematocrit 21.4, MCV 95 and platelet count of 107,000. His chemistry showed a serum sodium 143, potassium 4.2, chloride 109, bicarbonate 30, anion gap of 4, BUN 27, creatinine 1.2, estimated GFR was 59 mL per minute. Her glucose was 81, calcium was 7.1, phosphorus 3.1 and magnesium was 2.2. ASSESSMENT: 1. Left upper extremity abscess, status post aspiration 10 mL on 06/13/2019 which grew group B streptococci. He is also status post left shoulder open incision and drainage with arthrotomy, debridement of bone and bone cement and joint irrigation 06/14. 2. He developed respiratory failure for which he was intubated and mechanically ventilated. He is now maintaining his oxygen saturation 100% on FiO2 of 40%. 3. He developed diarrhea from Clostridium difficile colitis for which he is on vancomycin through his gastrostomy tube. 4. Hypotension for which he was on Levophed and vasopressin, both were discontinued. 5. PENICILLIN allergy. 6. Leukocytosis, resolved. 7. Malik syndrome with colonic ileus, followed by the Gastroenterology team. 8. Coronary artery disease, status post coronary artery bypass graft surgery. 9. Urinary retention for which he has an indwelling Bledsoe catheter. 10. Acute kidney injury, continued to be on continuous renal replacement therapy. PLAN: 1. To continue IV ceftriaxone for group B Streptococcus and vancomycin through the NG tube for C. diff colitis. 2. Continue with mechanical ventilation, wean as tolerated. 3. Continue with hemodialysis as per Nephrology team. 4. Continue with contact isolation. 5. Continue with nutritional support in the form of TPN. His overall prognosis given the multiple organ failure is poor. KERI DIGGS MD DR: PAIGE/chastity JOB#: [id number] / [id number]
[2019-06-24] MEDS: INSULIN GLARGINE SYRINGE. SQ SCH (21:00)
[2019-06-24] MEDS: SIMVASTATIN 40 MG TABLET. PO SCH (21:01)
[2019-06-24] MEDS ORDERED: [UNRECOGNIZED DRUG - OTHER] IV SCH ×9 (22:00)
[2019-06-24] MEDS ORDERED: DEXTROSE 70% IV SCH ×9 (22:00)
[2019-06-24] MEDS ORDERED: AMINO ACID IV SCH ×9 (22:00)
[2019-06-24] MEDS ORDERED: TOTAL PARENTERAL NUTRITION IV SCH ×9 (22:00)
[2019-06-25] VITALS (24 sets, daily range): BP systolic 84–167; BP diastolic 48–89
[2019-06-25] MEDS: MIDAZOLAM HCL/PF 2 MG/2 ML VIAL. IV PRN (03:45)
[2019-06-25] MEDS: DEXMEDETOMIDINE 400 MCG in IV NORMAL SALINE 100ML 96 ML IV PRN (03:45)
--- NOTE | 2019-06-25 05:24 | RAD ---
PORTABLE CHEST 1V INDICATION: Respiratory failure. COMPARISON STUDY: 06/24/2019. FINDINGS: Life Support Devices: Stable life support devices. Lungs: Low lung volume. Bibasilar subsegmental atelectasis. No confluent consolidation. Pleura: Stable pleural spaces. Heart and Mediastinum: Stable cardiomediastinal silhouette and great vessels. IMPRESSION: 1. Stable left support devices. 2. Low lung volume with stable bibasilar opacities, likely subsegmental atelectasis. Electronically signed by: Ilya Valadez MD (06/25/2019 5:21 AM) [facility]
[2019-06-25] MEDS: LEVOTHYROXINE 175 MCG TABLET PO SCH (06:10)
[2019-06-25] MEDS: INSULIN LISPRO 300 UNITS/3 ML VIAL. SQ SCH ×5 (06:29→23:58)
[2019-06-25 06:47] LABS: CALCIUM 7.8 mg/dL (8.5-10.1); CREATININE 1.5 mg/dL (0.7-1.3); GFR 45.4; MAGNESIUM 2.1 mg/dL (1.8-2.4); PHOSPHORUS 3.9 mg/dL (2.6-4.7); POTASSIUM 4.6 mmol/L (3.5-5.1)
[2019-06-25 06:52] LABS: HEMATOCRIT 22.5 % (39.0-53.0); HEMOGLOBIN 7.5 g/dL (13.0-17.5); RED BLOOD COUNT 2.33 x10^6/uL (4.30-5.70); RED CELL DISTRIBUTION WIDTH 14.8 % (11.5-14.5); WHITE BLOOD COUNT 9.8 x10^3/uL (4.0-11.0)
[2019-06-25] MEDS: PANTOPRAZOLE IV PUSH 40 MG VIAL. IVP SCH (07:35)
[2019-06-25 08:13] LABS: BASE EXCESS ABG -6 mmol/L (-3-3); HCO3 ABG 19 mmol/L (21-28); PCO2 ABG 34 mmHg (35-46); PO2 ABG 128 mmHg (65-108); SAT O2 ABG 98 % (92-99)
[2019-06-25 08:14] LABS: FIO2 ABG 40
--- NOTE | 2019-06-25 08:26 | PDOC ---
Infectious Disease Note Subjective: Subjective pt is awake this am Remains intubated,awaiting possible weaning trial today No fevers last 24 hours Mucoid type stool x 1 TPN ROS: ROS unable to obtain Vital Signs: Vital Signs Vital Signs Date Time Temp Pulse Resp B/P (MAP) Pulse Ox O2 Delivery O2 Flow Rate FiO2 06/25/19 08:00 97.6 66 12 100/61 (74) 100 Ventilator 97.6 Physical Exam: PHYSICAL EXAM GENERAL: Orally intubated, awake, CRRT - bear hugger - off HEENT: Pupils are equal, NGT, ETT LUNGS: Improved aeration HEART: S1, S2. irregular ABDOMEN: Obese, soft + BS. Rectal tube out : Bledsoe. scrotal edema EXTREMITIES: Generalized edema. Left shoulder incision well-approx/thiago, clean LLE bandaged SKIN: Without signs of rash NEUROLOGIC: Awake, calm Temp HDC (06/15) [facility] Medications: Inpatient Meds: Current Medications Medications (Trade) Dose Ordered Sig/Lauren Start Time Stop Time Status Last Admin Dose Admin Albumin Human 100 ml @ 100 mls/hr Q6HRS 06/23/19 08:15 06/24/19 12:59 DC 06/24/19 12:06 100 MLS/HR Amino Acids/ Electrolytes/ Dextrose 1,000 ml @ 80 mls/hr [id number] 06/14/19 10:30 06/15/19 21:59 DC 06/15/19 16:23 80 MLS/HR Bisacodyl (Dulcolax Supp) 10 mg 1X ONCE 06/07/19 17:45 06/07/19 17:46 DC 06/07/19 21:40 10 MG Bisacodyl (Dulcolax Tab) 5 mg PRN DAILY PRN 06/11/19 15:45 06/20/19 11:31 DC Bupivacaine HCl/ Epinephrine Bitart (Sensorcaine-Epi 0.25%-1:[id number] Mpf) 30 ml 1X ONCE 06/14/19 17:45 06/14/19 17:46 Cancel Ceftriaxone Sodium (Rocephin) 2 gm Q24H 06/19/19 09:00 06/24/19 08:22 2 GM Clindamycin Phosphate 50 ml @ As Directed STK-MED ONCE 06/14/19 18:07 06/14/19 18:07 DC Daptomycin 560 mg/ Sodium Chloride 50 ml @ 100 mls/hr Q48H 06/15/19 14:00 06/18/19 07:56 DC 06/17/19 14:29 100 MLS/HR Dexamethasone Sodium Phosphate (Decadron) 4 mg STK-MED ONCE 06/14/19 16:17 06/14/19 16:17 DC Dexmedetomidine HCl 400 mcg/ Sodium Chloride 100 ml @ 5.58 mls/hr CONT PRN 06/20/19 16:15 06/25/19 03:45 5.58 MLS/HR Dextrose (Dextrose 50%-Water Syringe) 25 gm 1X ONCE 06/24/19 11:45 06/24/19 11:46 DC Diphenhydramine HCl (Benadryl) 25 mg 1X PRN PRN 06/20/19 07:30 06/21/19 07:29 DC Ephedrine Sulfate (ePHEDrine PF IN SALINE SYRINGE) 50 mg STK-MED ONCE 06/14/19 19:21 06/14/19 19:21 DC Famotidine (Pepcid Vial) 20 mg STK-MED ONCE 06/14/19 16:17 06/14/19 16:17 DC Fentanyl Citrate (Fentanyl 2ml Vial) 50 mcg PRN Q1HR PRN 06/20/19 16:15 06/24/19 05:17 50 MCG Finasteride (Proscar) 5 mg DAILY 06/12/19 12:00 06/13/19 09:39 DC Furosemide (Lasix) 40 mg DAILY 06/08/19 12:00 06/14/19 13:01 DC 06/12/19 08:36 40 MG Heparin Sodium (Porcine) (Heparin Sodium) 5,000 unit BID 06/24/19 09:00 06/24/19 21:21 5,000 UNIT Hydromorphone HCl (Dilaudid) 2 mg PRN Q3HRS PRN 06/07/19 22:00 06/14/19 23:55 DC 06/14/19 12:39 2 MG Info (PHARMACY MONITORING -- do not chart) 1 each PRN DAILY PRN 06/20/19 07:30 Info (Tpn Per Pharmacy) 1 each PRN DAILY PRN 06/15/19 11:30 06/24/19 09:46 1 EACH Insulin Glargine (Lantus Syringe) 30 unit QHS 06/08/19 21:00 06/23/19 21:19 30 UNIT Insulin Human Lispro (HumaLOG) 0-9 UNITS Q6HRS 06/16/19 12:00 06/25/19 06:29 4 UNITS Ketamine HCl (Ketamine) 50 mg STK-MED ONCE 06/14/19 17:03 06/14/19 17:03 DC Levothyroxine Sodium (Synthroid) 175 mcg DAILY06 06/08/19 12:00 06/25/19 06:29 175 MCG Lidocaine HCl (Lidocaine Pf 2% Vial) 5 ml STK-MED ONCE 06/14/19 16:17 06/14/19 16:17 DC Lidocaine/Sodium Bicarbonate (Buffered Lidocaine 1%) 3 ml 1X ONCE 06/15/19 11:00 06/15/19 11:01 DC Lorazepam (Ativan) 0.5 mg PRN Q6HRS PRN 06/07/19 18:00 06/07/19 18:14 DC Losartan Potassium (Cozaar) 100 mg DAILY 06/08/19 12:00 06/14/19 13:01 DC 06/12/19 08:36 100 MG Magnesium Sulfate 50 ml @ 25 mls/hr 1X ONCE 06/16/19 08:30 06/16/19 10:29 DC 06/16/19 08:27 25 MLS/HR Meropenem 1 gm/ Sodium Chloride 100 ml @ 200 mls/hr DAILY 06/15/19 09:00 06/19/19 07:22 DC 06/18/19 10:55 200 MLS/HR Methylnaltrexone Rogers (Relistor) 6 mg 1X ONCE 06/14/19 14:00 06/14/19 14:01 DC 06/14/19 14:15 6 MG Metoprolol Succinate (Toprol Xl) 200 mg DAILY 06/08/19 12:00 06/14/19 13:01 DC 06/12/19 08:36 200 MG Metronidazole 100 ml @ 100 mls/hr Q8HRS 06/24/19 09:00 06/25/19 06:29 100 MLS/HR Midazolam HCl (Versed) 2 mg PRN Q6HRS PRN 06/22/19 13:30 06/25/19 03:45 2 MG Morphine Sulfate (Ms Contin) 60 mg BID 06/08/19 12:00 06/20/19 11:33 60 MG Nicotine (Nicoderm Cq 21mg) 1 patch PRN DAILY PRN 06/07/19 18:00 06/07/19 18:14 DC Nifedipine (Procardia Xl) 60 mg DAILY 06/08/19 12:00 06/14/19 13:01 DC 06/12/19 08:36 60 MG Non-Formulary Medication (Insuln Asp Prt/ Insulin Aspart (Novolog Mix 70-30 Flexpen Syrn)) 1 unit BIDACBL 06/08/19 11:30 06/08/19 19:34 DC Norepinephrine Bitartrate 250 ml @ 17.398 mls/ hr CONT PRN 06/14/19 14:30 06/18/19 17:55 34.796 MLS/HR Ondansetron HCl (Zofran) 4 mg STK-MED ONCE 06/14/19 16:17 06/14/19 16:17 DC Pantoprazole Sodium (PROTONIX VIAL for IV PUSH) 40 mg DAILYAC 06/14/19 07:30 06/25/19 07:35 40 MG Pantoprazole Sodium (Protonix) 40 mg DAILYAC 06/12/19 07:30 06/13/19 13:27 DC 06/12/19 08:36 40 MG Phenylephrine HCl (PHENYLEPHRINE in 0.9% NACL PF) 1 mg STK-MED ONCE 06/14/19 17:03 06/14/19 17:04 DC Polyethylene Glycol (miraLAX PACKET) 17 gm PRN DAILY PRN 06/11/19 15:45 06/20/19 11:31 DC Potassium Chloride 15 meq/ Bicarbonate Dialysis Soln w/ out KCl 5,007.5 ml @ 1,500 mls/ hr Q3H21M 06/22/19 08:00 06/23/19 14:20 DC 06/23/19 12:05 1,500 MLS/HR Potassium Chloride 20 meq/ Bicarbonate Dialysis Soln w/ out KCl 5,010 ml @ 1,500 mls/hr Q3H21M 06/20/19 18:00 06/22/19 11:00 DC 06/22/19 10:55 1,500 MLS/HR Propofol 100 ml @ 0 mls/hr CONT PRN 06/14/19 20:00 06/15/19 10:33 8.351 MLS/HR Ringer's Solution 1,000 ml @ 75 mls/hr [id number] 06/08/19 09:15 06/09/19 08:01 DC 06/08/19 14:01 75 MLS/HR Rocuronium Rogers (Zemuron) 50 mg STK-MED ONCE 06/14/19 16:32 06/14/19 16:32 DC Simvastatin (Zocor) 40 mg QHS 06/08/19 21:00 06/24/19 21:21 40 MG Sodium Bicarbonate 50 meq/Sodium Chloride 1,050 ml @ 125 mls/hr Q8H24M 06/15/19 10:15 06/16/19 18:21 DC 06/16/19 09:26 125 MLS/HR Sodium Chloride 90 meq/Potassium Chloride 50 meq/ Magnesium Sulfate 10 meq/Calcium Gluconate 10 meq/ Multivitamins 10 ml/Chromium/ Copper/Manganese/ Seleni/Zn 1 ml/ Total Parenteral Nutrition/Amino Acids/Dextrose 1,512 ml @ 63 mls/hr TPN CONT 06/15/19 22:00 06/16/19 21:59 DC 06/16/19 00:19 63 MLS/HR Sodium Chloride 90 meq/Potassium Chloride 50 meq/ Magnesium Sulfate 10 meq/Calcium Gluconate 10 meq/ Multivitamins 10 ml/Chromium/ Copper/Manganese/ Seleni/Zn 1 ml/ Total Parenteral Nutrition/Amino Acids/Dextrose/ Fat Emulsion Intravenous 1,512 ml @ 63 mls/hr TPN CONT 06/16/19 22:00 06/17/19 21:59 DC 06/16/19 22:43 63 MLS/HR Sodium Chloride 90 meq/Potassium Chloride 50 meq/ Potassium Phosphate 13.6 mmol/Magnesium Sulfate 10 meq/ Calcium Gluconate 10 meq/ Multivitamins 10 ml/Chromium/ Copper/Manganese/ Seleni/Zn 1 ml/ Total Parenteral Nutrition/Amino Acids/Dextrose/ Fat Emulsion Intravenous 1,512 ml @ 63 mls/hr TPN CONT 06/17/19 22:00 06/18/19 21:59 DC 06/17/19 21:48 63 MLS/HR Sodium Chloride 90 meq/Potassium Chloride 70 meq/ Potassium Phosphate 13.6 mmol/Magnesium Sulfate 10 meq/ Calcium Gluconate 10 meq/ Multivitamins 10 ml/Chromium/ Copper/Manganese/ Seleni/Zn 1 ml/ Total Parenteral Nutrition/Amino Acids/Dextrose/ Fat Emulsion Intravenous 1,512 ml @ 63 mls/hr TPN CONT 06/18/19 22:00 06/19/19 21:59 DC 06/18/19 22:59 63 MLS/HR Sodium Chloride 90 meq/Potassium Chloride 85 meq/ Potassium Phosphate 13.6 mmol/Magnesium Sulfate 10 meq/ Calcium Gluconate 10 meq/ Multivitamins 10 ml/Chromium/ Copper/Manganese/ Seleni/Zn 1 ml/ Insulin Human Regular 10 unit/ Total Parenteral Nutrition/Amino Acids/Dextrose/ Fat Emuls... 1,512 ml @ 63 mls/hr TPN CONT 06/19/19 22:00 06/20/19 21:59 DC 06/19/19 22:27 63 MLS/HR Sodium Chloride 100 meq/Potassium Chloride 95 meq/ Potassium Phosphate 13.6 mmol/Magnesium Sulfate 10 meq/ Calcium Gluconate 10 meq/ Multivitamins 10 ml/Chromium/ Copper/Manganese/ Seleni/Zn 1 ml/ Insulin Human Regular 10 unit/ Total Parenteral Nutrition/Amino Acids/Dextrose/ Fat Emuls... 1,512 ml @ 63 mls/hr TPN CONT 06/20/19 22:00 06/21/19 21:59 DC 06/20/19 21:54 63 MLS/HR Sodium Chloride 100 meq/Potassium Chloride 95 meq/ Potassium Phosphate 20.4 mmol/Magnesium Sulfate 10 meq/ Calcium Gluconate 10 meq/ Multivitamins 10 ml/Chromium/ Copper/Manganese/ Seleni/Zn 1 ml/ Insulin Human Regular 10 unit/ Total Parenteral Nutrition/Amino Acids/Dextrose/ Fat Emuls... 1,300 ml @ 54.167 mls/ hr TPN CONT 06/21/19 22:00 06/22/19 21:59 DC 06/21/19 22:12 54.167 MLS/HR Sodium Chloride 100 meq/Potassium Phosphate 20.4 mmol/Magnesium Sulfate 10 meq/ Calcium Gluconate 10 meq/ Multivitamins 10 ml/Chromium/ Copper/Manganese/ Seleni/Zn 1 ml/ Insulin Human Regular 10 unit/ Total Parenteral Nutrition/Amino Acids/Dextrose/ Fat Emulsion Intravenous 1,300 ml @ 54.167 mls/ hr TPN CONT 06/23/19 22:00 06/24/19 21:59 DC 06/23/19 21:35 54.167 MLS/HR Sodium Chloride 100 meq/Potassium Phosphate 20.4 mmol/Magnesium Sulfate 10 meq/ Calcium Gluconate 10 meq/ Multivitamins 10 ml/Chromium/ Copper/Manganese/ Seleni/Zn 1 ml/ Total Parenteral Nutrition/Amino Acids/Dextrose/ Fat Emulsion Intravenous 1,300 ml @ 54.167 mls/ hr TPN CONT 06/24/19 22:00 06/25/19 21:59 06/24/19 21:21 54.167 MLS/HR Sodium Chloride 100 meq/Sodium Phosphate 10 mmol/ Potassium Chloride 95 meq/ Potassium Phosphate 20.4 mmol/Magnesium Sulfate 10 meq/ Calcium Gluconate 2 meq/ Multivitamins 10 ml/Chromium/ Copper/Manganese/ Seleni/Zn 1 ml/ Insulin Human Regular 10 unit/ Total Parenteral Nutrition/Am... 1,300 ml @ 54.167 mls/ hr TPN CONT 06/22/19 22:00 06/23/19 21:59 DC 06/22/19 21:50 54.167 MLS/HR Sodium Chloride 100 meq/Sodium Phosphate 20 mmol/ Potassium Chloride 95 meq/ Potassium Phosphate 20.4 mmol/Magnesium Sulfate 10 meq/ Multivitamins 10 ml/Chromium/ Copper/Manganese/ Seleni/Zn 1 ml/ Insulin Human Regular 10 unit/ Total Parenteral Nutrition/Amino Acids/Dextrose/ Fat Emuls... 1,300 ml @ 54.167 mls/ hr TPN CONT 06/23/19 22:00 06/23/19 12:26 DC Sodium Phosphate 20 mmol/Dextrose 256.6667 ml @ 64.153 m... 1X ONCE 06/23/19 09:00 06/23/19 13:00 DC 06/23/19 09:04 64.153 MLS/HR Succinylcholine Chloride (Anectine) 200 mg STK-MED ONCE 06/14/19 16:17 06/14/19 16:17 DC Tamsulosin HCl (Flomax) 0.4 mg QHS 06/12/19 21:00 06/14/19 13:01 DC 06/12/19 21:26 0.4 MG Testosterone Cypionate (Depo-Testosterone) 200 mg Q2WKS 06/22/19 09:00 Vancomycin HCl (Vancomycin Oral Solution) 125 mg [id number] 06/16/19 09:00 06/24/19 21:21 125 MG Vasopressin 40 unit/Dextrose 102 ml @ 6 mls/hr CONT PRN 06/15/19 14:30 06/23/19 05:07 6 MLS/HR Vitamin B Complex (Bud B) 1 tab DAILY 06/08/19 12:00 06/22/19 08:57 1 TAB Labs: Lab Laboratory Tests Test 06/24/19 10:05 06/24/19 11:26 06/24/19 11:34 06/24/19 12:15 O2 Saturation 97 % (92-99) Arterial Blood pH 7.43 (7.35-7.45) Arterial Blood pCO2 at Patient Temp 39 mmHg (35-46) Arterial Blood pO2 at Patient Temp 134 mmHg (65-108) Arterial Blood HCO3 26 mmol/L (21-28) Arterial Blood Base Excess 1 mmol/L (-3-3) FiO2 40 Hemoglobin 7.6 g/dL (13.0-17.5) Hematocrit 22.2 % (39.0-53.0) Mean Corpuscular Hemoglobin Concent 34 g/dL (31-37) Glucose (Fingerstick) 67 mg/dL (70-99) 85 mg/dL (70-99) Test 06/24/19 17:40 06/24/19 17:42 06/24/19 21:21 06/25/19 00:08 Hemoglobin 7.3 g/dL (13.0-17.5) Hematocrit 21.8 % (39.0-53.0) Mean Corpuscular Hemoglobin Concent 34 g/dL (31-37) Sodium Level 141 mmol/L (136-145) Potassium Level 4.4 mmol/L (3.5-5.1) Chloride Level 109 mmol/L (98-107) Carbon Dioxide Level 28 mmol/L (21-32) Anion Gap 4 (6-14) Blood Urea Nitrogen 30 mg/dL (8-26) Creatinine 1.3 mg/dL (0.7-1.3) Estimated GFR (Cockcroft-Gault) 53.5 Glucose Level 80 mg/dL (70-99) Calcium Level 8.7 mg/dL (8.5-10.1) Phosphorus Level 3.5 mg/dL (2.6-4.7) Magnesium Level 2.2 mg/dL (1.8-2.4) Glucose (Fingerstick) 74 mg/dL (70-99) 91 mg/dL (70-99) 100 mg/dL (70-99) Test 06/25/19 06:18 06/25/19 06:20 06/25/19 07:50 Glucose (Fingerstick) 193 mg/dL (70-99) White Blood Count 9.8 x10^3/uL (4.0-11.0) Red Blood Count 2.33 x10^6/uL (4.30-5.70) Hemoglobin 7.5 g/dL (13.0-17.5) Hematocrit 22.5 % (39.0-53.0) Mean Corpuscular Volume 97 fL (79-100) Mean Corpuscular Hemoglobin 32 pg (25-35) Mean Corpuscular Hemoglobin Concent 33 g/dL (31-37) Red Cell Distribution Width 14.8 % (11.5-14.5) Platelet Count 108 x10^3/uL (140-400) Sodium Level 140 mmol/L (136-145) Potassium Level 4.6 mmol/L (3.5-5.1) Chloride Level 110 mmol/L (98-107) Carbon Dioxide Level 24 mmol/L (21-32) Anion Gap 6 (6-14) Blood Urea Nitrogen 38 mg/dL (8-26) Creatinine 1.5 mg/dL (0.7-1.3) Estimated GFR (Cockcroft-Gault) 45.4 Glucose Level 212 mg/dL (70-99) Calcium Level 7.8 mg/dL (8.5-10.1) Phosphorus Level 3.9 mg/dL (2.6-4.7) Magnesium Level 2.1 mg/dL (1.8-2.4) O2 Saturation 98 % (92-99) Arterial Blood pH 7.36 (7.35-7.45) Arterial Blood pCO2 at Patient Temp 34 mmHg (35-46) Arterial Blood pO2 at Patient Temp 128 mmHg (65-108) Arterial Blood HCO3 19 mmol/L (21-28) Arterial Blood Base Excess -6 mmol/L (-3-3) FiO2 40 Objective: Assessment: LUE abscess s/p removal 06/13. group B strep -S/p Left shoulder open incision and drainage with arthrotomy, debridement of bone and bone cement, and joint irrigation 06/14 G B strep C. diff positive, 06/14 PCN allergy - Hives - believes has tolerated Cephalosporins per his RENATA requiring HD, on vasopressin off levophed Post op resp failure - intubated - Pulm following Leukocytosis - resolved thrombocytopenia hematology following ? Malik syndrome - GI following CAD - Cardiology following H/o MRSA H/o Group B strep sepsis Erosive Gastritis s/p EGD 06/08 Urinary retention - Bledsoe placed 06/12 Fractures of 2 superior mediastinal wires Plan: Plan of Care Rocephin and PO vanc on IV Flagyl 06/23 Monitor labs/temp Contact isolation D/W nursing Critically ill long term care social worker prognosis poor Palliative care consulted LBU PEACE MD Jun 25, 2019 08:26
[2019-06-25] MEDS: FINASTERIDE 5 MG TABLET. PO SCH (08:29)
[2019-06-25] MEDS: VITAMIN B COMPLEX TABLET. PO SCH (08:29)
[2019-06-25] MEDS: MORPHINE ER 30 MG TABLET.ER PO SCH ×2 (08:29→19:46)
[2019-06-25] MEDS: cefTRIAXone IV Push 2 GM VIAL. IVP SCH (09:27)
[2019-06-25] MEDS: VANCOMYCIN 125 MG/2.5 ML ORAL SOLUTION. PO SCH ×4 (09:27→20:58)
[2019-06-25] MEDS: HEPARIN for SUB-Q USE 5,000 UNIT/ML VIAL. SQ SCH ×2 (09:33→20:59)
--- NOTE | 2019-06-25 09:56 | PDOC ---
Subjective: Subjective: Indicates nausea and right arm/hand pain, denies abd pain. Objective: Objective: Reviewed w/ nurse - mucoid stool on Sat, no NG output, ?extubation today Vital Signs: Vital Signs Date Time Temp Pulse Resp B/P (MAP) Pulse Ox O2 Delivery O2 Flow Rate FiO2 06/25/19 08:00 97.6 66 12 100/61 (74) 100 Ventilator 97.6 Labs: Laboratory Tests Test 06/24/19 10:05 06/24/19 11:26 06/24/19 11:34 06/24/19 12:15 O2 Saturation 97 % Arterial Blood pH 7.43 Arterial Blood pCO2 at Patient Temp 39 mmHg Arterial Blood pO2 at Patient Temp 134 mmHg Arterial Blood HCO3 26 mmol/L Arterial Blood Base Excess 1 mmol/L FiO2 40 Hemoglobin 7.6 g/dL Hematocrit 22.2 % Mean Corpuscular Hemoglobin Concent 34 g/dL Glucose (Fingerstick) 67 mg/dL 85 mg/dL Test 06/24/19 17:40 06/24/19 17:42 06/24/19 21:21 06/25/19 00:08 Hemoglobin 7.3 g/dL Hematocrit 21.8 % Mean Corpuscular Hemoglobin Concent 34 g/dL Sodium Level 141 mmol/L Potassium Level 4.4 mmol/L Chloride Level 109 mmol/L Carbon Dioxide Level 28 mmol/L Anion Gap 4 Blood Urea Nitrogen 30 mg/dL Creatinine 1.3 mg/dL Estimated GFR (Cockcroft-Gault) 53.5 Glucose Level 80 mg/dL Calcium Level 8.7 mg/dL Phosphorus Level 3.5 mg/dL Magnesium Level 2.2 mg/dL Glucose (Fingerstick) 74 mg/dL 91 mg/dL 100 mg/dL Test 06/25/19 06:18 06/25/19 06:20 06/25/19 07:50 Glucose (Fingerstick) 193 mg/dL White Blood Count 9.8 x10^3/uL Red Blood Count 2.33 x10^6/uL Hemoglobin 7.5 g/dL Hematocrit 22.5 % Mean Corpuscular Volume 97 fL Mean Corpuscular Hemoglobin 32 pg Mean Corpuscular Hemoglobin Concent 33 g/dL Red Cell Distribution Width 14.8 % Platelet Count 108 x10^3/uL Sodium Level 140 mmol/L Potassium Level 4.6 mmol/L Chloride Level 110 mmol/L Carbon Dioxide Level 24 mmol/L Anion Gap 6 Blood Urea Nitrogen 38 mg/dL Creatinine 1.5 mg/dL Estimated GFR (Cockcroft-Gault) 45.4 Glucose Level 212 mg/dL Calcium Level 7.8 mg/dL Phosphorus Level 3.9 mg/dL Magnesium Level 2.1 mg/dL O2 Saturation 98 % Arterial Blood pH 7.36 Arterial Blood pCO2 at Patient Temp 34 mmHg Arterial Blood pO2 at Patient Temp 128 mmHg Arterial Blood HCO3 19 mmol/L Arterial Blood Base Excess -6 mmol/L FiO2 40 Imaging: KUB 06/22 FINDINGS/IMPRESSION: Single AP view of the abdomen includes in the [id number] the epigastric region and left upper quadrant. The remainder of the abdomen and pelvis is not included in the cydwg-mr-qely. Diffusely dilated loops of bowel are seen throughout the visualized abdomen. Obstruction or ileus is suspected. PE: GEN: intubated LUNGS: vent HEART: RRR ABD: quiet, soft, hernia NEURO/PSYCH: A & O �3 A/P: LUE abscess, resp failure (better), renal failure (on CRRT) C Diff, erosive esophagitis, duodenal ulcer, ?ileus -- Vomiting resolved/NG output slowed. On TPN and PPI - continue. GERALD SMITH Jun 25, 2019 09:56
--- NOTE | 2019-06-25 10:03 | PDOC ---
SUBJECTIVE Subjective S: Awake, intubated, may be extubated soon? Getting suctioned while coughing O: Physical exam: Gen.: elderly man, resting in bed, intubated Abdomen: soft, hernia Extremities: BLE edema, signif, w/ LLE bandaged, L shoulder thiago look CDI Labs: White count 9.8, hemoglobin 7.9, platelets 108 MCV 97 INR 1.4 C. difficile positive Hep B neg Creatinine 1.5 B12 587 Assessment and Plan: 78 yo M c TCP improving, suspect, multifactorial, unlikely HIT, improving, no thrombosis, on antibiotics, PPIs, CRRT, recent pressors... Has left upper extremity abscess status post aspiration 13 June and I/D 14 June with strep, GI bleed on IV PPI, acute kidney injury on CRRT, acute respiratory failure intubated, and C. difficile being treated with vanc oral per G-tube and ileus followed by GI, radiology scans have shown no evidence of thrombosis Do not think we need to avoid heparin, on CRRT so heparin is best if safe, which it appears to be other cormorbidities: per others, continuing supportive meds for now Recommend checking CBCs daily and reeval if plt count drops again prophylaxis: cont heparin 5000U BID for now Thank you kindly and please do not hesitate to call with questions. OBJECTIVE Vital Signs Vital Signs Date Time Temp Pulse Resp B/P (MAP) Pulse Ox O2 Delivery O2 Flow Rate FiO2 06/25/19 08:00 97.6 66 12 100/61 (74) 100 Ventilator 97.6 06/25/19 08:00 Mechanical Ventilator 06/25/19 07:50 100 Ventilator 06/25/19 07:48 12 100 Ventilator 06/25/19 07:16 12 100 Ventilator 06/25/19 07:00 65 12 98/49 (65) 100 Ventilator 06/25/19 06:00 61 12 106/70 (82) 100 Ventilator 06/25/19 05:11 100 Ventilator 06/25/19 05:00 61 12 118/65 (82) 100 Ventilator 06/25/19 04:00 Mechanical Ventilator 06/25/19 04:00 98.1 61 12 104/54 (71) 100 Ventilator 98.1 06/25/19 03:33 12 100 Ventilator 06/25/19 03:00 20 100 06/25/19 03:00 68 12 119/58 (78) 100 Ventilator 06/25/19 02:18 100 Ventilator 06/25/19 02:00 61 12 85/50 (62) 100 Ventilator 06/25/19 01:00 70 12 84/53 (63) 100 Ventilator 06/25/19 00:12 100 Ventilator 06/25/19 00:00 Mechanical Ventilator 06/25/19 00:00 98.2 60 12 84/48 (60) 100 Ventilator 98.2 06/24/19 23:24 12 100 Ventilator 06/24/19 23:00 60 12 97/57 (70) 100 Ventilator 06/24/19 22:51 20 100 Ventilator 06/24/19 22:00 62 12 77/46 (56) 100 Ventilator 06/24/19 21:00 60 12 101/55 (70) 99 Ventilator 06/24/19 20:26 100 Ventilator 06/24/19 20:00 98.1 66 12 107/59 (75) 99 Ventilator 98.1 06/24/19 20:00 Mechanical Ventilator 06/24/19 19:22 12 99 Ventilator 06/24/19 19:00 66 12 111/63 (79) 100 Ventilator 06/24/19 18:26 Ventilator 06/24/19 18:21 10 100 Ventilator 06/24/19 18:00 71 12 117/54 (75) 100 Ventilator 06/24/19 17:10 100 Ventilator 06/24/19 17:00 61 12 105/58 (74) 100 Ventilator 06/24/19 16:00 Ventilator 06/24/19 16:00 97.8 61 12 120/57 (78) 100 Ventilator 97.8 06/24/19 16:00 Mechanical Ventilator 06/24/19 15:47 12 100 Ventilator 06/24/19 15:46 12 100 Ventilator 06/24/19 15:05 100 Ventilator 06/24/19 15:00 66 12 118/61 (80) 100 Ventilator 06/24/19 14:00 64 12 111/57 (75) 100 Ventilator 06/24/19 13:30 12 100 Ventilator 06/24/19 13:10 100 Ventilator 06/24/19 13:00 60 12 106/61 (76) 100 Ventilator 06/24/19 12:47 12 100 Ventilator 06/24/19 12:00 97.6 62 12 85/46 (59) 100 Ventilator 97.6 06/24/19 12:00 Mechanical Ventilator 06/24/19 11:00 64 12 101/47 (65) 100 Ventilator 06/24/19 10:05 12 100 Ventilator 06/24/19 10:00 68 12 107/49 (68) 100 Ventilator I & O Intake and Output 06/25/19 07:00 Intake Total 2088.97 ml Output Total 478 ml Balance 1610.97 ml Intake Oral 0 ml IV Total 2088.97 ml Output Urine Total 478 ml COMMENT Lab Laboratory Tests Test 06/24/19 10:05 06/24/19 11:26 06/24/19 11:34 06/24/19 12:15 O2 Saturation 97 % (92-99) Arterial Blood pH 7.43 (7.35-7.45) Arterial Blood pCO2 at Patient Temp 39 mmHg (35-46) Arterial Blood pO2 at Patient Temp 134 mmHg (65-108) Arterial Blood HCO3 26 mmol/L (21-28) Arterial Blood Base Excess 1 mmol/L (-3-3) FiO2 40 Hemoglobin 7.6 g/dL (13.0-17.5) Hematocrit 22.2 % (39.0-53.0) Mean Corpuscular Hemoglobin Concent 34 g/dL (31-37) Glucose (Fingerstick) 67 mg/dL (70-99) 85 mg/dL (70-99) Test 06/24/19 17:40 06/24/19 17:42 06/24/19 21:21 06/25/19 00:08 Hemoglobin 7.3 g/dL (13.0-17.5) Hematocrit 21.8 % (39.0-53.0) Mean Corpuscular Hemoglobin Concent 34 g/dL (31-37) Sodium Level 141 mmol/L (136-145) Potassium Level 4.4 mmol/L (3.5-5.1) Chloride Level 109 mmol/L (98-107) Carbon Dioxide Level 28 mmol/L (21-32) Anion Gap 4 (6-14) Blood Urea Nitrogen 30 mg/dL (8-26) Creatinine 1.3 mg/dL (0.7-1.3) Estimated GFR (Cockcroft-Gault) 53.5 Glucose Level 80 mg/dL (70-99) Calcium Level 8.7 mg/dL (8.5-10.1) Phosphorus Level 3.5 mg/dL (2.6-4.7) Magnesium Level 2.2 mg/dL (1.8-2.4) Glucose (Fingerstick) 74 mg/dL (70-99) 91 mg/dL (70-99) 100 mg/dL (70-99) Test 06/25/19 06:18 06/25/19 06:20 06/25/19 07:50 Glucose (Fingerstick) 193 mg/dL (70-99) White Blood Count 9.8 x10^3/uL (4.0-11.0) Red Blood Count 2.33 x10^6/uL (4.30-5.70) Hemoglobin 7.5 g/dL (13.0-17.5) Hematocrit 22.5 % (39.0-53.0) Mean Corpuscular Volume 97 fL (79-100) Mean Corpuscular Hemoglobin 32 pg (25-35) Mean Corpuscular Hemoglobin Concent 33 g/dL (31-37) Red Cell Distribution Width 14.8 % (11.5-14.5) Platelet Count 108 x10^3/uL (140-400) Sodium Level 140 mmol/L (136-145) Potassium Level 4.6 mmol/L (3.5-5.1) Chloride Level 110 mmol/L (98-107) Carbon Dioxide Level 24 mmol/L (21-32) Anion Gap 6 (6-14) Blood Urea Nitrogen 38 mg/dL (8-26) Creatinine 1.5 mg/dL (0.7-1.3) Estimated GFR (Cockcroft-Gault) 45.4 Glucose Level 212 mg/dL (70-99) Calcium Level 7.8 mg/dL (8.5-10.1) Phosphorus Level 3.9 mg/dL (2.6-4.7) Magnesium Level 2.1 mg/dL (1.8-2.4) O2 Saturation 98 % (92-99) Arterial Blood pH 7.36 (7.35-7.45) Arterial Blood pCO2 at Patient Temp 34 mmHg (35-46) Arterial Blood pO2 at Patient Temp 128 mmHg (65-108) Arterial Blood HCO3 19 mmol/L (21-28) Arterial Blood Base Excess -6 mmol/L (-3-3) FiO2 40 ALTAGRACIA RIGGINS MD Jun 25, 2019 10:03
--- NOTE | 2019-06-25 10:13 | PN ---
DATE: 06/25/2019 SUBJECTIVE: The patient is resting, slightly propped up in bed, no apparent distress. He is awake, alert, responding appropriately; however, he continued to be intubated, mechanically ventilated. He is off vasopressin. Apparently, he did very well on weaning trial yesterday; however, he was not extubated. PHYSICAL EXAMINATION: GENERAL: When I examined him this morning, he looked pale, but no jaundice, cyanosis, or thyromegaly. No jugular venous distension. No limb edema. VITAL SIGNS: Heart rate was 65, blood pressure was 98/49, temperature was 98.1, respiratory rate was 12, and oxygen saturation 100% on FiO2 of 40%. HEAD, EYES, EARS, NOSE, AND THROAT: Showed normocephalic, atraumatic. He has a nasogastric tube as well as orotracheal tube in place. NECK: Supple. HEART: Showed normal first and second heart sounds with no gallop, rub, or murmur. CHEST: Clear to auscultation. No crepitation or rhonchi. ABDOMEN: Distended, soft, nontender. NEUROLOGIC: He was awake, alert, responding appropriately. Opens eyes, tracks, and nods his head. All his cranial nerves are intact. He moves his upper extremities to much good extent than lower extremities. Has marked bilateral lower extremity swelling and generalized anasarca. His intake over the last 24 hours was 4200. He has according to nursing staff about 600 mL of urine output. LABORATORY DATA: As of this morning showed his white cell count was 9800, hemoglobin 7.5, hematocrit 22.5, MCV 97, and platelet count of 108,000. Chemistry showed a serum sodium 140, potassium 4.6, chloride 110, bicarbonate 24, anion gap of 6, BUN 38, creatinine 1.5, estimated GFR was 45 mL per minute, his glucose was 112, calcium was 7.8, phosphorus 3.9, and magnesium was 2.1. ASSESSMENT: 1. Left upper extremity abscess, status post aspiration of 10 mL on 06/13/2019, which grew group B streptococci. He is also status post left shoulder open incision and drainage with arthrotomy, debridement of bone and bone cement and joint irrigation on 06/14/2019. 2. He developed respiratory failure for which he was intubated and mechanically ventilated. He is now maintaining his oxygen saturation 100% on FiO2 of 40%. 3. He developed diarrhea and his Clostridium difficile toxins were positive for which he is now on vancomycin through NG tube as well as IV Flagyl. 4. Hypertension for which he was on Levophed and vasopressin. Both were discontinued. 5. PENICILLIN allergy. 6. Leukocytosis, resolved. 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 He did not have any bowel movement yesterday. 8. Coronary artery disease, status post coronary artery bypass graft surgery, clinically well compensated. 9. Urinary retention for which he has an indwelling Bledsoe catheter. 10. Acute kidney injury for which he continued to be on continuous renal replacement therapy, although his urine output has improved from yesterday. KERI DIGGS MD DR: PAIGE/chastity JOB#: [id number] / [id number]
--- NOTE | 2019-06-25 11:18 | PDOC ---
PULMONARY PROGRESS NOTES Subjective fully awake doing well on CPAP trial Vitals Vital Signs Date Time Temp Pulse Resp B/P (MAP) Pulse Ox O2 Delivery O2 Flow Rate FiO2 06/25/19 11:00 71 12 122/64 (83) 100 Ventilator 06/25/19 08:00 97.6 97.6 Comments ros as mentioned as above discussed w rn other sys otherwise neg on vent alert, General: Alert, No acute distress HEENT: Other (nc at perrl nose clear oally intubated neck no lad no thyromegaly) Lungs: Other (decrease bs) Cardiovascular: S1, S2 Abdomen: Other (distended, firm, abdominal wall hernia) Extremities: Other (2+edema, scrotal edema) Skin: Warm Labs Laboratory Tests Test 06/23/19 12:52 06/23/19 17:35 06/23/19 17:45 06/23/19 20:35 Glucose (Fingerstick) 140 mg/dL (70-99) 154 mg/dL (70-99) 138 mg/dL (70-99) Sodium Level 141 mmol/L (136-145) Potassium Level 4.3 mmol/L (3.5-5.1) Chloride Level 107 mmol/L (98-107) Carbon Dioxide Level 31 mmol/L (21-32) Anion Gap 3 (6-14) Phosphorus Level 3.2 mg/dL (2.6-4.7) Magnesium Level 2.2 mg/dL (1.8-2.4) Test 06/24/19 00:18 06/24/19 05:45 06/24/19 05:46 06/24/19 07:08 Glucose (Fingerstick) 113 mg/dL (70-99) 81 mg/dL (70-99) Sodium Level 143 mmol/L (136-145) Potassium Level 4.2 mmol/L (3.5-5.1) Chloride Level 109 mmol/L (98-107) Carbon Dioxide Level 30 mmol/L (21-32) Anion Gap 4 (6-14) Blood Urea Nitrogen 27 mg/dL (8-26) Creatinine 1.2 mg/dL (0.7-1.3) Estimated GFR (Cockcroft-Gault) 58.7 Glucose Level 81 mg/dL (70-99) Calcium Level 7.7 mg/dL (8.5-10.1) Phosphorus Level 3.1 mg/dL (2.6-4.7) Magnesium Level 2.2 mg/dL (1.8-2.4) White Blood Count 8.8 x10^3/uL (4.0-11.0) Red Blood Count 2.26 x10^6/uL (4.30-5.70) Hemoglobin 7.2 g/dL (13.0-17.5) Hematocrit 21.4 % (39.0-53.0) Mean Corpuscular Volume 95 fL (79-100) Mean Corpuscular Hemoglobin 32 pg (25-35) Mean Corpuscular Hemoglobin Concent 34 g/dL (31-37) Red Cell Distribution Width 14.6 % (11.5-14.5) Platelet Count 107 x10^3/uL (140-400) Neutrophils (%) (Auto) 80 % (31-73) Lymphocytes (%) (Auto) 14 % (24-48) Monocytes (%) (Auto) 6 % (0-9) Eosinophils (%) (Auto) 1 % (0-3) Basophils (%) (Auto) 0 % (0-3) Neutrophils # (Auto) 7.0 x10^3/uL (1.8-7.7) Lymphocytes # (Auto) 1.2 x10^3/uL (1.0-4.8) Monocytes # (Auto) 0.5 x10^3/uL (0.0-1.1) Eosinophils # (Auto) 0.0 x10^3/uL (0.0-0.7) Basophils # (Auto) 0.0 x10^3/uL (0.0-0.2) Test 06/24/19 08:00 06/24/19 10:05 06/24/19 11:26 06/24/19 11:34 O2 Saturation 97 % (92-99) 97 % (92-99) Arterial Blood pH 7.43 (7.35-7.45) 7.43 (7.35-7.45) Arterial Blood pCO2 at Patient Temp 38 mmHg (35-46) 39 mmHg (35-46) Arterial Blood pO2 at Patient Temp 132 mmHg (65-108) 134 mmHg (65-108) Arterial Blood HCO3 25 mmol/L (21-28) 26 mmol/L (21-28) Arterial Blood Base Excess 0 mmol/L (-3-3) 1 mmol/L (-3-3) FiO2 40 40 Hemoglobin 7.6 g/dL (13.0-17.5) Hematocrit 22.2 % (39.0-53.0) Mean Corpuscular Hemoglobin Concent 34 g/dL (31-37) Glucose (Fingerstick) 67 mg/dL (70-99) Test 06/24/19 12:15 06/24/19 17:40 06/24/19 17:42 06/24/19 21:21 Glucose (Fingerstick) 85 mg/dL (70-99) 74 mg/dL (70-99) 91 mg/dL (70-99) Hemoglobin 7.3 g/dL (13.0-17.5) Hematocrit 21.8 % (39.0-53.0) Mean Corpuscular Hemoglobin Concent 34 g/dL (31-37) Sodium Level 141 mmol/L (136-145) Potassium Level 4.4 mmol/L (3.5-5.1) Chloride Level 109 mmol/L (98-107) Carbon Dioxide Level 28 mmol/L (21-32) Anion Gap 4 (6-14) Blood Urea Nitrogen 30 mg/dL (8-26) Creatinine 1.3 mg/dL (0.7-1.3) Estimated GFR (Cockcroft-Gault) 53.5 Glucose Level 80 mg/dL (70-99) Calcium Level 8.7 mg/dL (8.5-10.1) Phosphorus Level 3.5 mg/dL (2.6-4.7) Magnesium Level 2.2 mg/dL (1.8-2.4) Test 06/25/19 00:08 06/25/19 06:18 06/25/19 06:20 06/25/19 07:50 Glucose (Fingerstick) 100 mg/dL (70-99) 193 mg/dL (70-99) White Blood Count 9.8 x10^3/uL (4.0-11.0) Red Blood Count 2.33 x10^6/uL (4.30-5.70) Hemoglobin 7.5 g/dL (13.0-17.5) Hematocrit 22.5 % (39.0-53.0) Mean Corpuscular Volume 97 fL (79-100) Mean Corpuscular Hemoglobin 32 pg (25-35) Mean Corpuscular Hemoglobin Concent 33 g/dL (31-37) Red Cell Distribution Width 14.8 % (11.5-14.5) Platelet Count 108 x10^3/uL (140-400) Sodium Level 140 mmol/L (136-145) Potassium Level 4.6 mmol/L (3.5-5.1) Chloride Level 110 mmol/L (98-107) Carbon Dioxide Level 24 mmol/L (21-32) Anion Gap 6 (6-14) Blood Urea Nitrogen 38 mg/dL (8-26) Creatinine 1.5 mg/dL (0.7-1.3) Estimated GFR (Cockcroft-Gault) 45.4 Glucose Level 212 mg/dL (70-99) Calcium Level 7.8 mg/dL (8.5-10.1) Phosphorus Level 3.9 mg/dL (2.6-4.7) Magnesium Level 2.1 mg/dL (1.8-2.4) O2 Saturation 98 % (92-99) Arterial Blood pH 7.36 (7.35-7.45) Arterial Blood pCO2 at Patient Temp 34 mmHg (35-46) Arterial Blood pO2 at Patient Temp 128 mmHg (65-108) Arterial Blood HCO3 19 mmol/L (21-28) Arterial Blood Base Excess -6 mmol/L (-3-3) FiO2 40 Laboratory Tests Test 06/24/19 11:26 06/24/19 11:34 06/24/19 12:15 06/24/19 17:40 Hemoglobin 7.6 g/dL (13.0-17.5) 7.3 g/dL (13.0-17.5) Hematocrit 22.2 % (39.0-53.0) 21.8 % (39.0-53.0) Mean Corpuscular Hemoglobin Concent 34 g/dL (31-37) 34 g/dL (31-37) Glucose (Fingerstick) 67 mg/dL (70-99) 85 mg/dL (70-99) Sodium Level 141 mmol/L (136-145) Potassium Level 4.4 mmol/L (3.5-5.1) Chloride Level 109 mmol/L (98-107) Carbon Dioxide Level 28 mmol/L (21-32) Anion Gap 4 (6-14) Blood Urea Nitrogen 30 mg/dL (8-26) Creatinine 1.3 mg/dL (0.7-1.3) Estimated GFR (Cockcroft-Gault) 53.5 Glucose Level 80 mg/dL (70-99) Calcium Level 8.7 mg/dL (8.5-10.1) Phosphorus Level 3.5 mg/dL (2.6-4.7) Magnesium Level 2.2 mg/dL (1.8-2.4) Test 06/24/19 17:42 06/24/19 21:21 06/25/19 00:08 06/25/19 06:18 Glucose (Fingerstick) 74 mg/dL (70-99) 91 mg/dL (70-99) 100 mg/dL (70-99) 193 mg/dL (70-99) Test 06/25/19 06:20 06/25/19 07:50 White Blood Count 9.8 x10^3/uL (4.0-11.0) Red Blood Count 2.33 x10^6/uL (4.30-5.70) Hemoglobin 7.5 g/dL (13.0-17.5) Hematocrit 22.5 % (39.0-53.0) Mean Corpuscular Volume 97 fL (79-100) Mean Corpuscular Hemoglobin 32 pg (25-35) Mean Corpuscular Hemoglobin Concent 33 g/dL (31-37) Red Cell Distribution Width 14.8 % (11.5-14.5) Platelet Count 108 x10^3/uL (140-400) Sodium Level 140 mmol/L (136-145) Potassium Level 4.6 mmol/L (3.5-5.1) Chloride Level 110 mmol/L (98-107) Carbon Dioxide Level 24 mmol/L (21-32) Anion Gap 6 (6-14) Blood Urea Nitrogen 38 mg/dL (8-26) Creatinine 1.5 mg/dL (0.7-1.3) Estimated GFR (Cockcroft-Gault) 45.4 Glucose Level 212 mg/dL (70-99) Calcium Level 7.8 mg/dL (8.5-10.1) Phosphorus Level 3.9 mg/dL (2.6-4.7) Magnesium Level 2.1 mg/dL (1.8-2.4) O2 Saturation 98 % (92-99) Arterial Blood pH 7.36 (7.35-7.45) Arterial Blood pCO2 at Patient Temp 34 mmHg (35-46) Arterial Blood pO2 at Patient Temp 128 mmHg (65-108) Arterial Blood HCO3 19 mmol/L (21-28) Arterial Blood Base Excess -6 mmol/L (-3-3) FiO2 40 Medications Active Scripts Medications Dose Route/Sig Max Daily Dose Days Date Category Foltx Tablet (B12/Levomefolate Calcium/B-6) 1 Each Tablet 1 Each PO AFTRNOON 06/07/19 Reported Testosterone Cypionate 200 Mg/1 Ml Vial 1 Ml IM Q2WKS 06/07/19 Reported Novolog Mix 70-30 Flexpen Syrn (Insuln Asp Prt/Insulin Aspart) 100 Unit/1 Ml Insuln.pen 1 Unit SQ BIDACBL 06/07/19 Reported Lantus Solostar (Insulin Glargine,Hum.rec.anlog) 100 Unit/1 Ml Insuln.pen 30 Unit SQ QHS 06/07/19 Reported Nifedipine Er (Nifedipine) 60 Mg Tab.er.24 1 Tab PO DAILY 06/07/19 Reported Morphine Sulfate Er (Morphine Sulfate) 60 Mg Tablet.er 1 Tab PO BID 06/07/19 Reported Furosemide 40 Mg Tablet 40 Mg PO DAILY 06/07/19 Reported Finasteride 5 Mg Tablet 1 Tab PO DAILY 06/07/19 Reported Simvastatin 40 Mg Tablet 1 Tab PO QHS 06/07/19 Reported Metoprolol Succinate ( Xl ) (Metoprolol Succinate) 200 Mg Tab.er.24h 1 Tab PO DAILY 06/07/19 Reported Levothyroxine Sodium 175 Mcg Tablet 1 Tab PO DAILY 06/07/19 Reported Losartan-Hctz 100-12.5 Mg Tab (Losartan/Hydrochlorothiazide) 1 Each Tablet 1 Tab PO DAILY 06/07/19 Reported Comments CXR 06/25 reviewed bilateral lower lobe subsegmental atelectasis and/ or infiltrate.ett ok Impression . 1. Acute Respiratory failure, multifactorial, includes septic shock, colonic ileus 2. septic shock 3. Erosive gastritis./ colonic ileus with recurrent emesis. high risk for aspiration. will not be able to protect his airway post extubation 4. C-Diff 5. Coronary artery disease, status post coronary artery bypass grafting. 6, COLONIC ILEUS 7. abnormal cxr with atelectasis 8. SHOULDER ABSCESS 9. RENATA 10. severe PCM 11. c diff colitis ID NOTE LUE abscess s/p 10 ml removal 06/13. group B strep -S/p Left shoulder open incision and drainage with arthrotomy, debridement of bone and bone cement, and joint irrigation 06/14 G B strep C. diff positive, 06/14 Plan . Doing well, on CPAP trial , fully awake OFF VERSED, / off FANTANYL/ off PRECEDEX today will extubate ultra filtration PER NEPHRO ABG, CXR NOTED OVERALL PROGNOSIS IS GUARDED ANTI BX PER ID D/W RN D/W IN DETAIL/ SHE IS OK WITH EXTUBATION TO SEE HOW HE DOES RISK FOR ASPIRATION POST EXTUBATION. discussed w LITA Barron MD Jun 25, 2019 11:18
--- NOTE | 2019-06-25 11:36 | NUR ---
Patient extubated at 1130. placed on Venti mask 40%. O2 sat 100% patient in no apparent distress. Will continue to monitor.
[2019-06-25] MEDS: fentaNYL PF VIAL 100 MCG/2 ML VIAL IV PRN (12:06)
[2019-06-25] MEDS: fentaNYL 50MCG/HR PATCH 1 PATCH PATCH.TD72 TD SCH (12:07)
[2019-06-25] MEDS: TPN PER PHARMACY MC PRN (12:35)
--- NOTE | 2019-06-25 12:43 | NUR ---
Pharmacy TPN Dosing Note S: ROSLYN MOORE is a 78 year old M Currently receiving Central Continuous TPN started 06/15/19 B:Pertinent PMH: Duodenal ulcer, Ileus Height: 6 feet, 0 inches Weight: 113.9 kg Current diet: NPO LABS: Sodium: 140 Potassium: 4.6 Chloride: 110 Calcium: 7.8 Corrected Calcium: 9.96 Magnesium: 2.1 CO2: 24 SCr: 1.5 Glucose: 91-204 Albumin: 1.3 AST: 16 ALT: 7 TPN FORMULA: TPN TYPE: Central Continuous AMINO ACIDS: 110 gm DEXTROSE: 195 gm LIPIDS: 20 gm SODIUM CHLORIDE: 50 mEq SODIUM ACETATE: 50 mEq POTASSIUM PHOSPHATE: 20.4 mmol MAGNESIUM: 10 mEq CALCIUM: 10 mEq MULTIPLE VITAMIN: 10 ml TRACE ELEMENTS: 1 ml TPN PLAN: Sodium split over chloride/acetate salts. R: Change TPN per plan and ordered formula Will monitor electrolytes, glucose, and tolerance to TPN. Kellee Alicia [facility], 06/25/19 [id number]
--- NOTE | 2019-06-25 13:29 | NUR ---
Small Bloody mucoid stool at 1300
[2019-06-25] MEDS ORDERED: HYDROmorphone 2 MG/ML VIAL IV PRN ×2 (14:00→16:30)
--- NOTE | 2019-06-25 15:09 | NUR ---
SS following up with discharge planning. Pt accepted at [facility], ; fax [phone]. SS phoned and faxed clinical updates to [facility]. SS will continue to follow for discharge planning.
--- NOTE | 2019-06-25 15:27 | PDOC2 ---
PALLIATIVE CARE Palliative Care Note Palliative Care Patient alert. Extubated. Remains on CRRT. Spoke with . Will continue current treatment plan. Patient's son coming tomorrow and will update. NIKKO NEWBY Jun 25, 2019 15:27
[2019-06-25] MEDS: DICLOFENAC SODIUM 1% TOPICAL GEL 100GM TUBE. TP SCH ×2 (16:07→20:58)
--- NOTE | 2019-06-25 16:21 | PDOC ---
Renal-Progress Notes Subjective Notes Notes SEDATED History of Present Illness Hx of present illness NO CHANGE Vitals Vitals Vital Signs Date Time Temp Pulse Resp B/P (MAP) Pulse Ox O2 Delivery O2 Flow Rate FiO2 06/25/19 16:16 20 99 Room Air 06/25/19 15:00 103 154/89 (110) 2.0 06/25/19 12:00 97.6 97.6 Weight Weight [ ] I.O. Intake and Output Intake and Output 06/25/19 07:00 Intake Total 2088.97 ml Output Total 503 ml Balance 1585.97 ml Intake Oral 0 ml IV Total 2088.97 ml Output Urine Total 503 ml Labs Labs Laboratory Tests Test 06/24/19 17:40 06/24/19 17:42 06/24/19 21:21 06/25/19 00:08 Hemoglobin 7.3 g/dL (13.0-17.5) Hematocrit 21.8 % (39.0-53.0) Mean Corpuscular Hemoglobin Concent 34 g/dL (31-37) Sodium Level 141 mmol/L (136-145) Potassium Level 4.4 mmol/L (3.5-5.1) Chloride Level 109 mmol/L (98-107) Carbon Dioxide Level 28 mmol/L (21-32) Anion Gap 4 (6-14) Blood Urea Nitrogen 30 mg/dL (8-26) Creatinine 1.3 mg/dL (0.7-1.3) Estimated GFR (Cockcroft-Gault) 53.5 Glucose Level 80 mg/dL (70-99) Calcium Level 8.7 mg/dL (8.5-10.1) Phosphorus Level 3.5 mg/dL (2.6-4.7) Magnesium Level 2.2 mg/dL (1.8-2.4) Glucose (Fingerstick) 74 mg/dL (70-99) 91 mg/dL (70-99) 100 mg/dL (70-99) Test 06/25/19 06:18 06/25/19 06:20 06/25/19 07:50 06/25/19 11:56 Glucose (Fingerstick) 193 mg/dL (70-99) 204 mg/dL (70-99) White Blood Count 9.8 x10^3/uL (4.0-11.0) Red Blood Count 2.33 x10^6/uL (4.30-5.70) Hemoglobin 7.5 g/dL (13.0-17.5) Hematocrit 22.5 % (39.0-53.0) Mean Corpuscular Volume 97 fL (79-100) Mean Corpuscular Hemoglobin 32 pg (25-35) Mean Corpuscular Hemoglobin Concent 33 g/dL (31-37) Red Cell Distribution Width 14.8 % (11.5-14.5) Platelet Count 108 x10^3/uL (140-400) Sodium Level 140 mmol/L (136-145) Potassium Level 4.6 mmol/L (3.5-5.1) Chloride Level 110 mmol/L (98-107) Carbon Dioxide Level 24 mmol/L (21-32) Anion Gap 6 (6-14) Blood Urea Nitrogen 38 mg/dL (8-26) Creatinine 1.5 mg/dL (0.7-1.3) Estimated GFR (Cockcroft-Gault) 45.4 Glucose Level 212 mg/dL (70-99) Calcium Level 7.8 mg/dL (8.5-10.1) Phosphorus Level 3.9 mg/dL (2.6-4.7) Magnesium Level 2.1 mg/dL (1.8-2.4) O2 Saturation 98 % (92-99) Arterial Blood pH 7.36 (7.35-7.45) Arterial Blood pCO2 at Patient Temp 34 mmHg (35-46) Arterial Blood pO2 at Patient Temp 128 mmHg (65-108) Arterial Blood HCO3 19 mmol/L (21-28) Arterial Blood Base Excess -6 mmol/L (-3-3) FiO2 40 Micro Micro Microbiology 06/21/19 - Final, Complete 06/21/19 - Final, Complete 06/21/19 - Final, Complete 06/21/19 Gram Stain Evaluation - Final, Complete 06/21/19 Sputum Culture - Final, Complete 06/21/19 Sputum Result 1 - Final, Complete 06/14/19 AFB Specimen Processing Tissue - Final, Resulted 06/14/19 Acid Fast Bacilli Culture, Resulted Pending 06/14/19 Gram Stain - Final, Resulted 06/14/19 Fungal Culture - Preliminary, Resulted 06/14/19 Fungal Culture Result 1 - Preliminary, Resulted 06/13/19 Blood Culture - Final, Complete NO GROWTH AFTER 5 DAYS Review of Systems Constitutional: yes: unresponsive Physical Exam General Appearance: moderate distress Skin: warm Respiratory: decreased breath sounds Heart: S1S2 Abdomen: soft, bowel sounds present Genitourinary: bladder flat Extremities: pulses present, no edema, atrophy Neurology: other (SEDATED) Musculoskeletal: Other Assessment Assessment IMP [id number] OVERALL ALL MET ACIDOSIS CKD STAGE 3-CR PROB ABOUT 1.5 SEPSIS HYPOTENSION URINARY RETENTION LEFT SHOULDER ABSCESS S/P DRAINAGE AND ARTHROTOMY LEFT SHOULDER GASTRITIS LEUCOCYTOSIS BPH PLAN OFF ALL HIS ANTIHYPERTENSIVES AND DIURETICS ALSO OFF HIS FLOMAX FOR NOW DUE TO HYPOTENSION ANTIBIOTICS ORTHOPEDIC EVAL OFF IVF'S TPN VERY ILL WAS ON CRRT NOW SCUF WITH UF 100/HR ATTEMPT TO DIURESE WITH LASIX WILL FOLLOW DEREJE VOGEL MD Jun 25, 2019 16:21
--- NOTE | 2019-06-25 17:17 | RAD ---
Exam: Bilateral hips with pelvis INDICATION: Bilateral hip pain TECHNIQUE: Frontal view of the pelvis with frontal and lateral views of the bilateral hips Comparisons: None FINDINGS: Bone mineralization is normal. No acute or healed fractures. Vascular calcifications are noted. There is degenerative change noted in the lower lumbar spine. Pubic symphysis and sacroiliac joints are well-maintained. No significant osteoarthritic change at the hip joints bilaterally. IMPRESSION: No acute osseous abnormality. Degenerative changes described above. Electronically signed by: Jessy Carroll MD (06/25/2019 5:14 PM) [id number]
[2019-06-25 17:54] LABS: CALCIUM 7.6 mg/dL (8.5-10.1); CREATININE 1.5 mg/dL (0.7-1.3); GFR 45.4; POTASSIUM 4.4 mmol/L (3.5-5.1)
[2019-06-25] MEDS: HYDROmorphone 2 MG/ML VIAL IV PRN ×3 (19:07→23:00)
[2019-06-25] MEDS: SIMVASTATIN 40 MG TABLET. PO SCH (20:58)
[2019-06-25] MEDS: INSULIN GLARGINE SYRINGE. SQ SCH (21:00)
[2019-06-25] MEDS ORDERED: DICLOFENAC SODIUM 1% TOPICAL GEL 100GM TUBE. TP SCH (21:00)
[2019-06-25] MEDS ORDERED: [UNRECOGNIZED DRUG - OTHER] IV SCH ×10 (22:00)
[2019-06-25] MEDS ORDERED: TOTAL PARENTERAL NUTRITION IV SCH ×10 (22:00)
[2019-06-25] MEDS ORDERED: AMINO ACID IV SCH ×10 (22:00)
[2019-06-25] MEDS ORDERED: DEXTROSE 70% IV SCH ×10 (22:00)
[2019-06-26] VITALS (23 sets, daily range): BP systolic 97–173; BP diastolic 47–88
[2019-06-26] MEDS: HYDROmorphone 2 MG/ML VIAL IV PRN ×6 (01:02→20:57)
[2019-06-26 05:12] LABS: HEMATOCRIT 23.4 % (39.0-53.0); HEMOGLOBIN 7.8 g/dL (13.0-17.5)
[2019-06-26 05:44] LABS: CALCIUM 7.6 mg/dL (8.5-10.1); CREATININE 1.7 mg/dL (0.7-1.3); GFR 39.3; MAGNESIUM 1.9 mg/dL (1.8-2.4); PHOSPHORUS 4.7 mg/dL (2.6-4.7); POTASSIUM 4.2 mmol/L (3.5-5.1)
[2019-06-26] MEDS: LEVOTHYROXINE 175 MCG TABLET PO SCH (05:52)
[2019-06-26] MEDS: INSULIN LISPRO 300 UNITS/3 ML VIAL. SQ SCH ×4 (06:02→23:57)
[2019-06-26] MEDS: PANTOPRAZOLE IV PUSH 40 MG VIAL. IVP SCH (07:34)
--- NOTE | 2019-06-26 07:35 | PDOC ---
Infectious Disease Note Subjective: Subjective pt extubated No fevers last 24 hours Vital Signs: Vital Signs Vital Signs Date Time Temp Pulse Resp B/P (MAP) Pulse Ox O2 Delivery O2 Flow Rate FiO2 06/26/19 07:34 100 Room Air 2.0 06/26/19 06:00 90 10 116/75 (89) 06/26/19 04:00 97.8 97.8 Physical Exam: PHYSICAL EXAM GENERAL Pt alert,weak,comfortable on nasal O2 HEENT: no icterus LUNGS: dec bs at bases HEART: S1, S2. ABDOMEN: Obese, soft + BS. Rectal tube out : Lbedsoe. scrotal edema EXTREMITIES: Generalized edema. Left shoulder incision well-approx/thiago, clean LLE bandaged SKIN: Without signs of rash NEUROLOGIC: Awake, calm Temp HDC (06/15) [facility] Medications: Inpatient Meds: Current Medications Medications (Trade) Dose Ordered Sig/Lauren Start Time Stop Time Status Last Admin Dose Admin Albumin Human 100 ml @ 100 mls/hr Q6HRS 06/23/19 08:15 06/24/19 12:59 DC 06/24/19 12:06 100 MLS/HR Amino Acids/ Electrolytes/ Dextrose 1,000 ml @ 80 mls/hr [id number] 06/14/19 10:30 06/15/19 21:59 DC 06/15/19 16:23 80 MLS/HR Bisacodyl (Dulcolax Supp) 10 mg 1X ONCE 06/07/19 17:45 06/07/19 17:46 DC 06/07/19 21:40 10 MG Bisacodyl (Dulcolax Tab) 5 mg PRN DAILY PRN 06/11/19 15:45 06/20/19 11:31 DC Bupivacaine HCl/ Epinephrine Bitart (Sensorcaine-Epi 0.25%-1:689659 Mpf) 30 ml 1X ONCE 06/14/19 17:45 06/14/19 17:46 Cancel Ceftriaxone Sodium (Rocephin) 2 gm Q24H 06/19/19 09:00 06/25/19 09:44 2 GM Clindamycin Phosphate 50 ml @ As Directed STK-MED ONCE 06/14/19 18:07 06/14/19 18:07 DC Daptomycin 560 mg/ Sodium Chloride 50 ml @ 100 mls/hr Q48H 06/15/19 14:00 06/18/19 07:56 DC 06/17/19 14:29 100 MLS/HR Dexamethasone Sodium Phosphate (Decadron) 4 mg STK-MED ONCE 06/14/19 16:17 06/14/19 16:17 DC Dexmedetomidine HCl 400 mcg/ Sodium Chloride 100 ml @ 5.58 mls/hr CONT PRN 06/20/19 16:15 06/25/19 03:45 5.58 MLS/HR Dextrose (Dextrose 50%-Water Syringe) 25 gm 1X ONCE 06/24/19 11:45 06/24/19 11:46 DC Diclofenac Sodium (Voltaren) 1 clare BID 06/25/19 15:30 06/25/19 21:00 1 CLARE Diphenhydramine HCl (Benadryl) 25 mg 1X PRN PRN 06/20/19 07:30 06/21/19 07:29 DC Ephedrine Sulfate (ePHEDrine PF IN SALINE SYRINGE) 50 mg STK-MED ONCE 06/14/19 19:21 06/14/19 19:21 DC Famotidine (Pepcid Vial) 20 mg STK-MED ONCE 06/14/19 16:17 06/14/19 16:17 DC Fentanyl (Duragesic 50mcg/ Hr Patch) 1 patch Q3DAYS 06/25/19 12:00 06/25/19 12:10 1 PATCH Fentanyl Citrate (Fentanyl 2ml Vial) 50 mcg PRN Q1HR PRN 06/20/19 16:15 06/25/19 13:52 DC 06/25/19 12:10 50 MCG Finasteride (Proscar) 5 mg DAILY 06/12/19 12:00 06/13/19 09:39 DC Furosemide (Lasix) 40 mg DAILY 06/08/19 12:00 06/14/19 13:01 DC 06/12/19 08:36 40 MG Heparin Sodium (Porcine) (Heparin Sodium) 5,000 unit BID 06/24/19 09:00 06/25/19 21:00 5,000 UNIT Hydromorphone HCl (Dilaudid) 2 mg PRN Q2HRS PRN 06/25/19 19:00 06/26/19 07:34 2 MG Info (PHARMACY MONITORING -- do not chart) 1 each PRN DAILY PRN 06/20/19 07:30 Info (Tpn Per Pharmacy) 1 each PRN DAILY PRN 06/15/19 11:30 06/25/19 12:43 1 EACH Insulin Glargine (Lantus Syringe) 30 unit QHS 06/08/19 21:00 06/25/19 21:00 30 UNIT Insulin Human Lispro (HumaLOG) 0-9 UNITS Q6HRS 06/16/19 12:00 06/26/19 06:02 4 UNITS Ketamine HCl (Ketamine) 50 mg STK-MED ONCE 06/14/19 17:03 06/14/19 17:03 DC Levothyroxine Sodium (Synthroid) 175 mcg DAILY06 06/08/19 12:00 06/26/19 06:02 175 MCG Lidocaine HCl (Lidocaine Pf 2% Vial) 5 ml STK-MED ONCE 06/14/19 16:17 06/14/19 16:17 DC Lidocaine/Sodium Bicarbonate (Buffered Lidocaine 1%) 3 ml 1X ONCE 06/15/19 11:00 06/15/19 11:01 DC Lorazepam (Ativan) 0.5 mg PRN Q6HRS PRN 06/07/19 18:00 06/07/19 18:14 DC Losartan Potassium (Cozaar) 100 mg DAILY 06/08/19 12:00 06/14/19 13:01 DC 06/12/19 08:36 100 MG Magnesium Sulfate 50 ml @ 25 mls/hr 1X ONCE 06/16/19 08:30 06/16/19 10:29 DC 06/16/19 08:27 25 MLS/HR Meropenem 1 gm/ Sodium Chloride 100 ml @ 200 mls/hr DAILY 06/15/19 09:00 06/19/19 07:22 DC 06/18/19 10:55 200 MLS/HR Methylnaltrexone [place] (Relistor) 6 mg 1X ONCE 06/14/19 14:00 06/14/19 14:01 DC 06/14/19 14:15 6 MG Metoprolol Succinate (Toprol Xl) 200 mg DAILY 06/08/19 12:00 06/14/19 13:01 DC 06/12/19 08:36 200 MG Metronidazole 100 ml @ 100 mls/hr Q8HRS 06/24/19 09:00 06/26/19 06:02 100 MLS/HR Midazolam HCl (Versed) 2 mg PRN Q6HRS PRN 06/22/19 13:30 06/25/19 03:45 2 MG Morphine Sulfate (Ms Contin) 60 mg BID 06/08/19 12:00 06/20/19 11:33 60 MG Nicotine (Nicoderm Cq 21mg) 1 patch PRN DAILY PRN 06/07/19 18:00 06/07/19 18:14 DC Nifedipine (Procardia Xl) 60 mg DAILY 06/08/19 12:00 06/14/19 13:01 DC 06/12/19 08:36 60 MG Non-Formulary Medication (Insuln Asp Prt/ Insulin Aspart (Novolog Mix 70-30 Flexpen Syrn)) 1 unit BIDACBL 06/08/19 11:30 06/08/19 19:34 DC Norepinephrine Bitartrate 250 ml @ 17.398 mls/ hr CONT PRN 06/14/19 14:30 06/18/19 17:55 34.796 MLS/HR Ondansetron HCl (Zofran) 4 mg STK-MED ONCE 06/14/19 16:17 06/14/19 16:17 DC Pantoprazole Sodium (PROTONIX VIAL for IV PUSH) 40 mg DAILYAC 06/14/19 07:30 06/26/19 07:34 40 MG Pantoprazole Sodium (Protonix) 40 mg DAILYAC 06/12/19 07:30 06/13/19 13:27 DC 06/12/19 08:36 40 MG Phenylephrine HCl (PHENYLEPHRINE in 0.9% NACL PF) 1 mg STK-MED ONCE 06/14/19 17:03 06/14/19 17:04 DC Polyethylene Glycol (miraLAX PACKET) 17 gm PRN DAILY PRN 06/11/19 15:45 06/20/19 11:31 DC Potassium Chloride 15 meq/ Bicarbonate Dialysis Soln w/ out KCl 5,007.5 ml @ 1,500 mls/ hr Q3H21M 06/22/19 08:00 06/23/19 14:20 DC 06/23/19 12:05 1,500 MLS/HR Potassium Chloride 20 meq/ Bicarbonate Dialysis Soln w/ out KCl 5,010 ml @ 1,500 mls/hr Q3H21M 06/20/19 18:00 06/22/19 11:00 DC 06/22/19 10:55 1,500 MLS/HR Propofol 100 ml @ 0 mls/hr CONT PRN 06/14/19 20:00 06/25/19 11:53 DC 06/15/19 10:33 8.351 MLS/HR Ringer's Solution 1,000 ml @ 75 mls/hr [id number] 06/08/19 09:15 06/09/19 08:01 DC 06/08/19 14:01 75 MLS/HR Rocuronium [place] (Zemuron) 50 mg STK-MED ONCE 06/14/19 16:32 06/14/19 16:32 DC Simvastatin (Zocor) 40 mg QHS 06/08/19 21:00 06/25/19 21:00 40 MG Sodium Bicarbonate 50 meq/Sodium Chloride 1,050 ml @ 125 mls/hr Q8H24M 06/15/19 10:15 06/16/19 18:21 DC 06/16/19 09:26 125 MLS/HR Sodium Chloride 50 meq/Sodium Acetate 50 meq/ Potassium Phosphate 20.4 mmol/Magnesium Sulfate 10 meq/ Calcium Gluconate 10 meq/ Multivitamins 10 ml/Chromium/ Copper/Manganese/ Seleni/Zn 1 ml/ Total Parenteral Nutrition/Amino Acids/Dextrose/ Fat Emulsion Intravenous 1,300 ml @ 54.167 mls/ hr TPN CONT 06/25/19 22:00 06/26/19 21:59 06/25/19 22:18 54.167 MLS/HR Sodium Chloride 90 meq/Potassium Chloride 50 meq/ Magnesium Sulfate 10 meq/Calcium Gluconate 10 meq/ Multivitamins 10 ml/Chromium/ Copper/Manganese/ Seleni/Zn 1 ml/ Total Parenteral Nutrition/Amino Acids/Dextrose 1,512 ml @ 63 mls/hr TPN CONT 06/15/19 22:00 06/16/19 21:59 DC 06/16/19 00:19 63 MLS/HR Sodium Chloride 90 meq/Potassium Chloride 50 meq/ Magnesium Sulfate 10 meq/Calcium Gluconate 10 meq/ Multivitamins 10 ml/Chromium/ Copper/Manganese/ Seleni/Zn 1 ml/ Total Parenteral Nutrition/Amino Acids/Dextrose/ Fat Emulsion Intravenous 1,512 ml @ 63 mls/hr TPN CONT 06/16/19 22:00 06/17/19 21:59 DC 06/16/19 22:43 63 MLS/HR Sodium Chloride 90 meq/Potassium Chloride 50 meq/ Potassium Phosphate 13.6 mmol/Magnesium Sulfate 10 meq/ Calcium Gluconate 10 meq/ Multivitamins 10 ml/Chromium/ Copper/Manganese/ Seleni/Zn 1 ml/ Total Parenteral Nutrition/Amino Acids/Dextrose/ Fat Emulsion Intravenous 1,512 ml @ 63 mls/hr TPN CONT 06/17/19 22:00 06/18/19 21:59 DC 06/17/19 21:48 63 MLS/HR Sodium Chloride 90 meq/Potassium Chloride 70 meq/ Potassium Phosphate 13.6 mmol/Magnesium Sulfate 10 meq/ Calcium Gluconate 10 meq/ Multivitamins 10 ml/Chromium/ Copper/Manganese/ Seleni/Zn 1 ml/ Total Parenteral Nutrition/Amino Acids/Dextrose/ Fat Emulsion Intravenous 1,512 ml @ 63 mls/hr TPN CONT 06/18/19 22:00 06/19/19 21:59 DC 06/18/19 22:59 63 MLS/HR Sodium Chloride 90 meq/Potassium Chloride 85 meq/ Potassium Phosphate 13.6 mmol/Magnesium Sulfate 10 meq/ Calcium Gluconate 10 meq/ Multivitamins 10 ml/Chromium/ Copper/Manganese/ Seleni/Zn 1 ml/ Insulin Human Regular 10 unit/ Total Parenteral Nutrition/Amino Acids/Dextrose/ Fat Emuls... 1,512 ml @ 63 mls/hr TPN CONT 06/19/19 22:00 06/20/19 21:59 DC 06/19/19 22:27 63 MLS/HR Sodium Chloride 100 meq/Potassium Chloride 95 meq/ Potassium Phosphate 13.6 mmol/Magnesium Sulfate 10 meq/ Calcium Gluconate 10 meq/ Multivitamins 10 ml/Chromium/ Copper/Manganese/ Seleni/Zn 1 ml/ Insulin Human Regular 10 unit/ Total Parenteral Nutrition/Amino Acids/Dextrose/ Fat Emuls... 1,512 ml @ 63 mls/hr TPN CONT 06/20/19 22:00 06/21/19 21:59 DC 06/20/19 21:54 63 MLS/HR Sodium Chloride 100 meq/Potassium Chloride 95 meq/ Potassium Phosphate 20.4 mmol/Magnesium Sulfate 10 meq/ Calcium Gluconate 10 meq/ Multivitamins 10 ml/Chromium/ Copper/Manganese/ Seleni/Zn 1 ml/ Insulin Human Regular 10 unit/ Total Parenteral Nutrition/Amino Acids/Dextrose/ Fat Emuls... 1,300 ml @ 54.167 mls/ hr TPN CONT 06/21/19 22:00 06/22/19 21:59 DC 06/21/19 22:12 54.167 MLS/HR Sodium Chloride 100 meq/Potassium Phosphate 20.4 mmol/Magnesium Sulfate 10 meq/ Calcium Gluconate 10 meq/ Multivitamins 10 ml/Chromium/ Copper/Manganese/ Seleni/Zn 1 ml/ Insulin Human Regular 10 unit/ Total Parenteral Nutrition/Amino Acids/Dextrose/ Fat Emulsion Intravenous 1,300 ml @ 54.167 mls/ hr TPN CONT 06/23/19 22:00 06/24/19 21:59 DC 06/23/19 21:35 54.167 MLS/HR Sodium Chloride 100 meq/Potassium Phosphate 20.4 mmol/Magnesium Sulfate 10 meq/ Calcium Gluconate 10 meq/ Multivitamins 10 ml/Chromium/ Copper/Manganese/ Seleni/Zn 1 ml/ Total Parenteral Nutrition/Amino Acids/Dextrose/ Fat Emulsion Intravenous 1,300 ml @ 54.167 mls/ hr TPN CONT 06/24/19 22:00 06/25/19 21:59 DC 06/24/19 21:21 54.167 MLS/HR Sodium Chloride 100 meq/Sodium Phosphate 10 mmol/ Potassium Chloride 95 meq/ Potassium Phosphate 20.4 mmol/Magnesium Sulfate 10 meq/ Calcium Gluconate 2 meq/ Multivitamins 10 ml/Chromium/ Copper/Manganese/ Seleni/Zn 1 ml/ Insulin Human Regular 10 unit/ Total Parenteral Nutrition/Am... 1,300 ml @ 54.167 mls/ hr TPN CONT 06/22/19 22:00 06/23/19 21:59 DC 06/22/19 21:50 54.167 MLS/HR Sodium Chloride 100 meq/Sodium Phosphate 20 mmol/ Potassium Chloride 95 meq/ Potassium Phosphate 20.4 mmol/Magnesium Sulfate 10 meq/ Multivitamins 10 ml/Chromium/ Copper/Manganese/ Seleni/Zn 1 ml/ Insulin Human Regular 10 unit/ Total Parenteral Nutrition/Amino Acids/Dextrose/ Fat Emuls... 1,300 ml @ 54.167 mls/ hr TPN CONT 06/23/19 22:00 06/23/19 12:26 DC Sodium Phosphate 20 mmol/Dextrose 256.6667 ml @ 64.153 m... 1X ONCE 06/23/19 09:00 9/7/19 13:00 DC 06/23/19 09:04 64.153 MLS/HR Succinylcholine Chloride (Anectine) 200 mg STK-MED ONCE 06/14/19 16:17 06/14/19 16:17 DC Tamsulosin HCl (Flomax) 0.4 mg QHS 06/12/19 21:00 06/14/19 13:01 DC 06/12/19 21:26 0.4 MG Testosterone Cypionate (Depo-Testosterone) 200 mg Q2WKS 06/22/19 09:00 Vancomycin HCl (Vancomycin Oral Solution) 125 mg [id number] 06/16/19 09:00 06/25/19 21:00 125 MG Vasopressin 40 unit/Dextrose 102 ml @ 6 mls/hr CONT PRN 06/15/19 14:30 06/23/19 05:07 6 MLS/HR Vitamin B Complex (Bud B) 1 tab DAILY 06/08/19 12:00 06/22/19 08:57 1 TAB Labs: Lab Laboratory Tests Test 06/25/19 07:50 06/25/19 11:56 06/25/19 17:33 06/25/19 17:36 O2 Saturation 98 % (92-99) Arterial Blood pH 7.36 (7.35-7.45) Arterial Blood pCO2 at Patient Temp 34 mmHg (35-46) Arterial Blood pO2 at Patient Temp 128 mmHg (65-108) Arterial Blood HCO3 19 mmol/L (21-28) Arterial Blood Base Excess -6 mmol/L (-3-3) FiO2 40 Glucose (Fingerstick) 204 mg/dL (70-99) 192 mg/dL (70-99) Sodium Level 142 mmol/L (136-145) Potassium Level 4.4 mmol/L (3.5-5.1) Chloride Level 109 mmol/L (98-107) Carbon Dioxide Level 20 mmol/L (21-32) Anion Gap 13 (6-14) Blood Urea Nitrogen 46 mg/dL (8-26) Creatinine 1.5 mg/dL (0.7-1.3) Estimated GFR (Cockcroft-Gault) 45.4 Glucose Level 209 mg/dL (70-99) Calcium Level 7.6 mg/dL (8.5-10.1) Phosphorus Level 4.4 mg/dL (2.6-4.7) Magnesium Level 2.0 mg/dL (1.8-2.4) Test 06/25/19 23:54 06/26/19 05:00 Glucose (Fingerstick) 206 mg/dL (70-99) Hemoglobin 7.8 g/dL (13.0-17.5) Hematocrit 23.4 % (39.0-53.0) Sodium Level 145 mmol/L (136-145) Potassium Level 4.2 mmol/L (3.5-5.1) Chloride Level 114 mmol/L (98-107) Carbon Dioxide Level 19 mmol/L (21-32) Anion Gap 12 (6-14) Blood Urea Nitrogen 45 mg/dL (8-26) Creatinine 1.7 mg/dL (0.7-1.3) Estimated GFR (Cockcroft-Gault) 39.3 Glucose Level 193 mg/dL (70-99) Calcium Level 7.6 mg/dL (8.5-10.1) Phosphorus Level 4.7 mg/dL (2.6-4.7) Magnesium Level 1.9 mg/dL (1.8-2.4) Triglycerides Level 77 mg/dL (0-150) Objective: Assessment: LUE abscess s/p removal 06/13. group B strep -S/p Left shoulder open incision and drainage with arthrotomy, debridement of bone and bone cement, and joint irrigation 06/14 G B strep C. diff positive, 06/14 PCN allergy - Hives - believes has tolerated Cephalosporins per his RENATA requiring HD, on vasopressin off levophed Post op resp failure - intubated - Pulm following Leukocytosis - resolved thrombocytopenia hematology following ? Whittier syndrome - GI following CAD - Cardiology following H/o MRSA H/o Group B strep sepsis Erosive Gastritis s/p EGD 06/08 Urinary retention - Bledsoe placed 06/12 Fractures of 2 superior mediastinal wires Plan: Plan of Care Rocephin and PO vanc cont IV Flagyl 06/23 Monitor labs/temp Contact isolation Prognosis poor D/W nursing BLU PEACE MD Jun 26, 2019 07:35
[2019-06-26 07:53] LABS: BASO # 0.1 x10^3/uL (0.0-0.2); BASO % 1 % (0-3); EOS % 0 % (0-3); HEMATOCRIT 23.4 % (39.0-53.0); HEMOGLOBIN 7.8 g/dL (13.0-17.5); LYMPH # 1.7 x10^3/uL (1.0-4.8); LYMPH % 17 % (24-48); MEAN CORPUSCULAR HEMOGLOBIN 32 pg (25-35); MEAN CORPUSCULAR HGB CONC 33 g/dL (31-37); MEAN CORPUSCULAR VOLUME 98 fL (79-100); MONO # 0.7 x10^3/uL (0.0-1.1); MONO % 7 % (0-9); NEUT # 7.7 x10^3/uL (1.8-7.7); NEUT % 75 % (31-73); PLATELET COUNT 146 x10^3/uL (140-400); RED BLOOD COUNT 2.42 x10^6/uL (4.30-5.70); RED CELL DISTRIBUTION WIDTH 15.3 % (11.5-14.5); WHITE BLOOD COUNT 10.2 x10^3/uL (4.0-11.0)
[2019-06-26] MEDS: cefTRIAXone IV Push 2 GM VIAL. IVP SCH (08:19)
[2019-06-26] MEDS: VANCOMYCIN 125 MG/2.5 ML ORAL SOLUTION. PO SCH ×4 (08:20→20:57)
[2019-06-26] MEDS: VITAMIN B COMPLEX TABLET. PO SCH (08:20)
[2019-06-26] MEDS: HEPARIN for SUB-Q USE 5,000 UNIT/ML VIAL. SQ SCH ×2 (08:21→20:59)
[2019-06-26] MEDS: FINASTERIDE 5 MG TABLET. PO SCH (09:00)
--- NOTE | 2019-06-26 09:33 | PDOC ---
Subjective: Subjective: Wants diet 7Up or water. Feels better today. Objective: Objective: Family meeting when son arrives from [place] - ?tomorrow Last stooled yesterday. No significant NG output. Vital Signs: Vital Signs Date Time Temp Pulse Resp B/P (MAP) Pulse Ox O2 Delivery O2 Flow Rate FiO2 06/26/19 09:26 100 Room Air 2.0 06/26/19 06:00 90 10 116/75 (89) 06/26/19 04:00 97.8 97.8 Labs: Laboratory Tests Test 06/25/19 11:56 06/25/19 17:33 06/25/19 17:36 06/25/19 23:54 Glucose (Fingerstick) 204 mg/dL 192 mg/dL 206 mg/dL Sodium Level 142 mmol/L Potassium Level 4.4 mmol/L Chloride Level 109 mmol/L Carbon Dioxide Level 20 mmol/L Anion Gap 13 Blood Urea Nitrogen 46 mg/dL Creatinine 1.5 mg/dL Estimated GFR (Cockcroft-Gault) 45.4 Glucose Level 209 mg/dL Calcium Level 7.6 mg/dL Phosphorus Level 4.4 mg/dL Magnesium Level 2.0 mg/dL Test 06/26/19 05:00 White Blood Count 10.2 x10^3/uL Red Blood Count 2.42 x10^6/uL Hemoglobin 7.8 g/dL Hematocrit 23.4 % Mean Corpuscular Volume 98 fL Mean Corpuscular Hemoglobin 32 pg Mean Corpuscular Hemoglobin Concent 33 g/dL Red Cell Distribution Width 15.3 % Platelet Count 146 x10^3/uL Neutrophils (%) (Auto) 75 % Lymphocytes (%) (Auto) 17 % Monocytes (%) (Auto) 7 % Eosinophils (%) (Auto) 0 % Basophils (%) (Auto) 1 % Neutrophils # (Auto) 7.7 x10^3/uL Lymphocytes # (Auto) 1.7 x10^3/uL Monocytes # (Auto) 0.7 x10^3/uL Eosinophils # (Auto) 0.0 x10^3/uL Basophils # (Auto) 0.1 x10^3/uL Sodium Level 145 mmol/L Potassium Level 4.2 mmol/L Chloride Level 114 mmol/L Carbon Dioxide Level 19 mmol/L Anion Gap 12 Blood Urea Nitrogen 45 mg/dL Creatinine 1.7 mg/dL Estimated GFR (Cockcroft-Gault) 39.3 Glucose Level 193 mg/dL Calcium Level 7.6 mg/dL Phosphorus Level 4.7 mg/dL Magnesium Level 1.9 mg/dL Triglycerides Level 77 mg/dL PE: GEN: CRRT LUNGS: NC HEART: RRR ABD: quiet BS, soft, some distention, large hernia (reducible) NEURO/PSYCH: A & O �3 - better today A/P: LUE abscess, resp failure (extubated), renal failure (on CRRT) C Diff, erosive esophagitis, duodenal ulcer, ?ileus -- Check KUB - pending this could consider liquids when/if cleared by [employer]. Continue PPI and TPN, also vanco per ID. D/w nurse this afternoon - okay per [employer] for clears - he is taking some and asking to remove NGT. KUB: Impression: 1. There is persistent colonic gas dilatation, also some gas distention of the small bowel. Findings could be due to ileus unless clinical suspicion for more distal colonic obstruction. Need to review w/ Dr. Oliveira re: NGT/diet. GERALD SMITH Jun 26, 2019 09:33
--- NOTE | 2019-06-26 09:53 | PDOC ---
SUBJECTIVE Subjective Pt awake and alert, extubated. He denies any abdominal pain or scrotal pain. C/o hip pain. Wants to get up and walk. present in room. OBJECTIVE Objective Per renal note flomax d/c due to hypotension for now Vital Signs Vital Signs Date Time Temp Pulse Resp B/P (MAP) Pulse Ox O2 Delivery O2 Flow Rate FiO2 06/26/19 09:26 100 Room Air 2.0 06/26/19 07:34 100 Room Air 2.0 06/26/19 06:00 90 10 116/75 (89) 100 Room Air 06/26/19 05:29 11 100 Room Air 06/26/19 05:00 92 12 97/65 (76) 100 Room Air 06/26/19 04:58 11 10 Room Air 06/26/19 04:00 Room Air 06/26/19 04:00 97.8 87 10 117/47 (70) 100 Room Air 97.8 06/26/19 03:57 12 100 Room Air 06/26/19 03:00 92 10 108/50 (69) 100 Room Air 06/26/19 02:54 10 100 Room Air 06/26/19 02:10 10 100 Room Air 06/26/19 02:00 97 11 125/69 (87) 100 Room Air 06/26/19 01:02 14 100 Room Air 06/26/19 01:00 95 14 119/65 (83) 100 Room Air 06/26/19 00:00 Room Air 06/26/19 00:00 98.1 97 11 119/62 (81) 100 Room Air 98.1 06/25/19 23:50 15 99 Room Air 06/25/19 23:00 15 99 Room Air 06/25/19 23:00 97 11 155/84 (107) 99 Room Air 06/25/19 22:45 12 99 Room Air 06/25/19 22:00 88 12 158/88 (111) 99 Room Air 06/25/19 21:00 18 99 Room Air 06/25/19 21:00 93 12 158/69 (98) 98 Room Air 06/25/19 20:17 12 99 Room Air 06/25/19 20:00 Room Air 06/25/19 20:00 98.3 98 14 103/61 (75) 99 Room Air 98.3 9/9/19 19:07 18 99 Room Air 06/25/19 19:00 91 12 142/77 (98) 99 Room Air 06/25/19 18:00 106 17 133/63 (86) 99 Room Air 06/25/19 17:07 18 100 Room Air 06/25/19 17:00 104 16 144/86 (105) 99 Room Air 06/25/19 16:32 21 99 Room Air 06/25/19 16:16 20 99 Room Air 06/25/19 16:00 Room Air 06/25/19 16:00 98.4 109 20 167/88 (114) 99 Room Air 98.4 06/25/19 15:00 103 20 154/89 (110) 100 Nasal Cannula 2.0 06/25/19 14:49 18 100 Nasal Cannula 2.0 06/25/19 14:04 23 100 Nasal Cannula 2.0 06/25/19 14:00 105 18 92/64 (73) 100 Nasal Cannula 2.0 06/25/19 13:00 92 18 101/77 (85) 100 Venturi Mask 12.0 06/25/19 12:43 16 100 Venturi Mask 12.0 06/25/19 12:10 18 Venturi Mask 15.0 06/25/19 12:10 16 100 Venturi Mask 15.0 06/25/19 12:00 97.6 90 16 98/70 (79) 100 Venturi Mask 15.0 97.6 06/25/19 12:00 Venturi Mask 12.0 06/25/19 11:35 12 100 Venturi Mask 15.0 06/25/19 11:25 Venturi Mask 15.0 06/25/19 11:00 71 12 122/64 (83) 100 Ventilator 06/25/19 11:00 Ventilator 06/25/19 10:52 12 100 Ventilator 06/25/19 10:00 80 12 158/78 (104) 100 Ventilator I & O Intake and Output 06/26/19 06:59 Intake Total 1611.84 ml Output Total 390 ml Balance 1221.84 ml Intake Oral 0 ml IV Total 1611.84 ml Output Urine Total 390 ml PHYSICAL EXAM Physical Exam General: Pleasant, no acute distress, well groomed Eyes: eyes full range of motion ENT: moist oral mucosa Neck: Trachea midline, no masses Respiratory: unlabored breathing, not using accessory muscles Cardiovascular: diffuse peripheral edema Abdomen: mildly edematous, nontender : scrotal edema 1+, woodson catheter secured to leg and draining clear yellow urine Psych: normal mood, affect ASSESSMENT/PLAN Assessment/Plan Urinary retention - continue woodson catheter for now Scrotal edema - improving, no need for additional imaging COMMENT Lab Laboratory Tests Test 06/25/19 11:56 06/25/19 17:33 06/25/19 17:36 06/25/19 23:54 Glucose (Fingerstick) 204 mg/dL (70-99) 192 mg/dL (70-99) 206 mg/dL (70-99) Sodium Level 142 mmol/L (136-145) Potassium Level 4.4 mmol/L (3.5-5.1) Chloride Level 109 mmol/L (98-107) Carbon Dioxide Level 20 mmol/L (21-32) Anion Gap 13 (6-14) Blood Urea Nitrogen 46 mg/dL (8-26) Creatinine 1.5 mg/dL (0.7-1.3) Estimated GFR (Cockcroft-Gault) 45.4 Glucose Level 209 mg/dL (70-99) Calcium Level 7.6 mg/dL (8.5-10.1) Phosphorus Level 4.4 mg/dL (2.6-4.7) Magnesium Level 2.0 mg/dL (1.8-2.4) Test 06/26/19 05:00 White Blood Count 10.2 x10^3/uL (4.0-11.0) Red Blood Count 2.42 x10^6/uL (4.30-5.70) Hemoglobin 7.8 g/dL (13.0-17.5) Hematocrit 23.4 % (39.0-53.0) Mean Corpuscular Volume 98 fL (79-100) Mean Corpuscular Hemoglobin 32 pg (25-35) Mean Corpuscular Hemoglobin Concent 33 g/dL (31-37) Red Cell Distribution Width 15.3 % (11.5-14.5) Platelet Count 146 x10^3/uL (140-400) Neutrophils (%) (Auto) 75 % (31-73) Lymphocytes (%) (Auto) 17 % (24-48) Monocytes (%) (Auto) 7 % (0-9) Eosinophils (%) (Auto) 0 % (0-3) Basophils (%) (Auto) 1 % (0-3) Neutrophils # (Auto) 7.7 x10^3/uL (1.8-7.7) Lymphocytes # (Auto) 1.7 x10^3/uL (1.0-4.8) Monocytes # (Auto) 0.7 x10^3/uL (0.0-1.1) Eosinophils # (Auto) 0.0 x10^3/uL (0.0-0.7) Basophils # (Auto) 0.1 x10^3/uL (0.0-0.2) Sodium Level 145 mmol/L (136-145) Potassium Level 4.2 mmol/L (3.5-5.1) Chloride Level 114 mmol/L (98-107) Carbon Dioxide Level 19 mmol/L (21-32) Anion Gap 12 (6-14) Blood Urea Nitrogen 45 mg/dL (8-26) Creatinine 1.7 mg/dL (0.7-1.3) Estimated GFR (Cockcroft-Gault) 39.3 Glucose Level 193 mg/dL (70-99) Calcium Level 7.6 mg/dL (8.5-10.1) Phosphorus Level 4.7 mg/dL (2.6-4.7) Magnesium Level 1.9 mg/dL (1.8-2.4) Triglycerides Level 77 mg/dL (0-150) OSKAR BAGLEY Jun 26, 2019 09:53
--- NOTE | 2019-06-26 10:00 | PDOC ---
SUBJECTIVE Subjective S: Awake, extubated, here today O: Physical exam: Gen.: elderly man, resting in bed, NAD Psych: pleasant mood and affect Labs: plts up >140 C. difficile positive Hep B neg B12 [id number] Assessment and Plan: 78 yo M c TCP improving, suspect, multifactorial, unlikely HIT, improving, no thrombosis, on antibiotics, PPIs, recent CRRT, recent pressors... Has left upper extremity abscess status post aspiration 13 June and I/D 14 June with strep, GI bleed on IV PPI, acute kidney injury on CRRT recently, acute respiratory failure now extubated, and C. difficile being treated with vanc oral per G-tube and h/o ileus followed by GI, radiology scans have shown no evidence of thrombosis Do not think we need to avoid heparin, it's ok to cont other cormorbidities: per others, continuing supportive meds for now Recommend checking CBCs daily and reeval if plt count drops again prophylaxis: cont heparin 5000U BID for now Thank you kindly and please do not hesitate to call with questions. OBJECTIVE Vital Signs Vital Signs Date Time Temp Pulse Resp B/P (MAP) Pulse Ox O2 Delivery O2 Flow Rate FiO2 06/26/19 09:26 100 Room Air 2.0 06/26/19 07:34 100 Room Air 2.0 06/26/19 06:00 90 10 116/75 (89) 100 Room Air 06/26/19 05:29 11 100 Room Air 06/26/19 05:00 92 12 97/65 (76) 100 Room Air 06/26/19 04:58 11 10 Room Air 06/26/19 04:00 Room Air 06/26/19 04:00 97.8 87 10 117/47 (70) 100 Room Air 97.8 06/26/19 03:57 12 100 Room Air 06/26/19 03:00 92 10 108/50 (69) 100 Room Air 06/26/19 02:54 10 100 Room Air 06/26/19 02:10 10 100 Room Air 06/26/19 02:00 97 11 125/69 (87) 100 Room Air 06/26/19 01:02 14 100 Room Air 06/26/19 01:00 95 14 119/65 (83) 100 Room Air 06/26/19 00:00 Room Air 06/26/19 00:00 98.1 97 11 119/62 (81) 100 Room Air 98.1 06/25/19 23:50 15 99 Room Air 06/25/19 23:00 15 99 Room Air 06/25/19 23:00 97 11 155/84 (107) 99 Room Air 06/25/19 22:45 12 99 Room Air 06/25/19 22:00 88 12 158/88 (111) 99 Room Air 06/25/19 21:00 18 99 Room Air 06/25/19 21:00 93 12 158/69 (98) 98 Room Air 06/25/19 20:17 12 99 Room Air 06/25/19 20:00 Room Air 06/25/19 20:00 98.3 98 14 103/61 (75) 99 Room Air 98.3 06/25/19 19:07 18 99 Room Air 06/25/19 19:00 91 12 142/77 (98) 99 Room Air 06/25/19 18:00 106 17 133/63 (86) 99 Room Air 06/25/19 17:07 18 100 Room Air 06/25/19 17:00 104 16 144/86 (105) 99 Room Air 06/25/19 16:32 21 99 Room Air 06/25/19 16:16 20 99 Room Air 06/25/19 16:00 Room Air 06/25/19 16:00 98.4 109 20 167/88 (114) 99 Room Air 98.4 06/25/19 15:00 103 20 154/89 (110) 100 Nasal Cannula 2.0 06/25/19 14:49 18 100 Nasal Cannula 2.0 06/25/19 14:04 23 100 Nasal Cannula 2.0 06/25/19 14:00 105 18 92/64 (73) 100 Nasal Cannula 2.0 06/25/19 13:00 92 18 101/77 (85) 100 Venturi Mask 12.0 06/25/19 12:43 16 100 Venturi Mask 12.0 06/25/19 12:10 18 Venturi Mask 15.0 06/25/19 12:10 16 100 Venturi Mask 15.0 06/25/19 12:00 97.6 90 16 98/70 (79) 100 Venturi Mask 15.0 97.6 06/25/19 12:00 Venturi Mask 12.0 06/25/19 11:35 12 100 Venturi Mask 15.0 06/25/19 11:25 Venturi Mask 15.0 06/25/19 11:00 71 12 122/64 (83) 100 Ventilator 06/25/19 11:00 Ventilator 06/25/19 10:52 12 100 Ventilator 06/25/19 10:00 80 12 158/78 (104) 100 Ventilator I & O Intake and Output 06/26/19 06:59 Intake Total 1611.84 ml Output Total 390 ml Balance 1221.84 ml Intake Oral 0 ml IV Total 1611.84 ml Output Urine Total 390 ml COMMENT Lab Laboratory Tests Test 06/25/19 11:56 06/25/19 17:33 06/25/19 17:36 06/25/19 23:54 Glucose (Fingerstick) 204 mg/dL (70-99) 192 mg/dL (70-99) 206 mg/dL (70-99) Sodium Level 142 mmol/L (136-145) Potassium Level 4.4 mmol/L (3.5-5.1) Chloride Level 109 mmol/L (98-107) Carbon Dioxide Level 20 mmol/L (21-32) Anion Gap 13 (6-14) Blood Urea Nitrogen 46 mg/dL (8-26) Creatinine 1.5 mg/dL (0.7-1.3) Estimated GFR (Cockcroft-Gault) 45.4 Glucose Level 209 mg/dL (70-99) Calcium Level 7.6 mg/dL (8.5-10.1) Phosphorus Level 4.4 mg/dL (2.6-4.7) Magnesium Level 2.0 mg/dL (1.8-2.4) Test 06/26/19 05:00 White Blood Count 10.2 x10^3/uL (4.0-11.0) Red Blood Count 2.42 x10^6/uL (4.30-5.70) Hemoglobin 7.8 g/dL (13.0-17.5) Hematocrit 23.4 % (39.0-53.0) Mean Corpuscular Volume 98 fL (79-100) Mean Corpuscular Hemoglobin 32 pg (25-35) Mean Corpuscular Hemoglobin Concent 33 g/dL (31-37) Red Cell Distribution Width 15.3 % (11.5-14.5) Platelet Count 146 x10^3/uL (140-400) Neutrophils (%) (Auto) 75 % (31-73) Lymphocytes (%) (Auto) 17 % (24-48) Monocytes (%) (Auto) 7 % (0-9) Eosinophils (%) (Auto) 0 % (0-3) Basophils (%) (Auto) 1 % (0-3) Neutrophils # (Auto) 7.7 x10^3/uL (1.8-7.7) Lymphocytes # (Auto) 1.7 x10^3/uL (1.0-4.8) Monocytes # (Auto) 0.7 x10^3/uL (0.0-1.1) Eosinophils # (Auto) 0.0 x10^3/uL (0.0-0.7) Basophils # (Auto) 0.1 x10^3/uL (0.0-0.2) Sodium Level 145 mmol/L (136-145) Potassium Level 4.2 mmol/L (3.5-5.1) Chloride Level 114 mmol/L (98-107) Carbon Dioxide Level 19 mmol/L (21-32) Anion Gap 12 (6-14) Blood Urea Nitrogen 45 mg/dL (8-26) Creatinine 1.7 mg/dL (0.7-1.3) Estimated GFR (Cockcroft-Gault) 39.3 Glucose Level 193 mg/dL (70-99) Calcium Level 7.6 mg/dL (8.5-10.1) Phosphorus Level 4.7 mg/dL (2.6-4.7) Magnesium Level 1.9 mg/dL (1.8-2.4) Triglycerides Level 77 mg/dL (0-150) ALTAGRACIA RIGGINS MD Jun 26, 2019 10:00
[2019-06-26] MEDS: DICLOFENAC SODIUM 1% TOPICAL GEL 100GM TUBE. TP SCH ×2 (10:46→20:59)
[2019-06-26] MEDS: ALBUMIN HUMAN 25% 100 ML IV SCH ×2 (10:47→20:56)
--- NOTE | 2019-06-26 10:51 | PDOC ---
PULMONARY PROGRESS NOTES Subjective EXTUBATED 06/25 NO SOA Vitals Vital Signs Date Time Temp Pulse Resp B/P (MAP) Pulse Ox O2 Delivery O2 Flow Rate FiO2 06/26/19 09:26 100 Room Air 2.0 06/26/19 06:00 90 10 116/75 (89) 06/26/19 04:00 97.8 97.8 General: Alert, No acute distress Lungs: Other (decrease bs) Cardiovascular: S1, S2 Abdomen: Other (distended, firm, abdominal wall hernia) Extremities: Other (2+edema, scrotal edema) Skin: Warm Labs Laboratory Tests Test 06/24/19 11:26 06/24/19 11:34 06/24/19 12:15 06/24/19 17:40 Hemoglobin 7.6 g/dL (13.0-17.5) 7.3 g/dL (13.0-17.5) Hematocrit 22.2 % (39.0-53.0) 21.8 % (39.0-53.0) Mean Corpuscular Hemoglobin Concent 34 g/dL (31-37) 34 g/dL (31-37) Glucose (Fingerstick) 67 mg/dL (70-99) 85 mg/dL (70-99) Sodium Level 141 mmol/L (136-145) Potassium Level 4.4 mmol/L (3.5-5.1) Chloride Level 109 mmol/L (98-107) Carbon Dioxide Level 28 mmol/L (21-32) Anion Gap 4 (6-14) Blood Urea Nitrogen 30 mg/dL (8-26) Creatinine 1.3 mg/dL (0.7-1.3) Estimated GFR (Cockcroft-Gault) 53.5 Glucose Level 80 mg/dL (70-99) Calcium Level 8.7 mg/dL (8.5-10.1) Phosphorus Level 3.5 mg/dL (2.6-4.7) Magnesium Level 2.2 mg/dL (1.8-2.4) Test 06/24/19 17:42 06/24/19 21:21 06/25/19 00:08 06/25/19 06:18 Glucose (Fingerstick) 74 mg/dL (70-99) 91 mg/dL (70-99) 100 mg/dL (70-99) 193 mg/dL (70-99) Test 06/25/19 06:20 06/25/19 07:50 06/25/19 11:56 06/25/19 17:33 White Blood Count 9.8 x10^3/uL (4.0-11.0) Red Blood Count 2.33 x10^6/uL (4.30-5.70) Hemoglobin 7.5 g/dL (13.0-17.5) Hematocrit 22.5 % (39.0-53.0) Mean Corpuscular Volume 97 fL (79-100) Mean Corpuscular Hemoglobin 32 pg (25-35) Mean Corpuscular Hemoglobin Concent 33 g/dL (31-37) Red Cell Distribution Width 14.8 % (11.5-14.5) Platelet Count 108 x10^3/uL (140-400) Sodium Level 140 mmol/L (136-145) Potassium Level 4.6 mmol/L (3.5-5.1) Chloride Level 110 mmol/L (98-107) Carbon Dioxide Level 24 mmol/L (21-32) Anion Gap 6 (6-14) Blood Urea Nitrogen 38 mg/dL (8-26) Creatinine 1.5 mg/dL (0.7-1.3) Estimated GFR (Cockcroft-Gault) 45.4 Glucose Level 212 mg/dL (70-99) Calcium Level 7.8 mg/dL (8.5-10.1) Phosphorus Level 3.9 mg/dL (2.6-4.7) Magnesium Level 2.1 mg/dL (1.8-2.4) O2 Saturation 98 % (92-99) Arterial Blood pH 7.36 (7.35-7.45) Arterial Blood pCO2 at Patient Temp 34 mmHg (35-46) Arterial Blood pO2 at Patient Temp 128 mmHg (65-108) Arterial Blood HCO3 19 mmol/L (21-28) Arterial Blood Base Excess -6 mmol/L (-3-3) FiO2 40 Glucose (Fingerstick) 204 mg/dL (70-99) 192 mg/dL (70-99) Test 06/25/19 17:36 06/25/19 23:54 06/26/19 05:00 Sodium Level 142 mmol/L (136-145) 145 mmol/L (136-145) Potassium Level 4.4 mmol/L (3.5-5.1) 4.2 mmol/L (3.5-5.1) Chloride Level 109 mmol/L (98-107) 114 mmol/L (98-107) Carbon Dioxide Level 20 mmol/L (21-32) 19 mmol/L (21-32) Anion Gap 13 (6-14) 12 (6-14) Blood Urea Nitrogen 46 mg/dL (8-26) 45 mg/dL (8-26) Creatinine 1.5 mg/dL (0.7-1.3) 1.7 mg/dL (0.7-1.3) Estimated GFR (Cockcroft-Gault) 45.4 39.3 Glucose Level 209 mg/dL (70-99) 193 mg/dL (70-99) Calcium Level 7.6 mg/dL (8.5-10.1) 7.6 mg/dL (8.5-10.1) Phosphorus Level 4.4 mg/dL (2.6-4.7) 4.7 mg/dL (2.6-4.7) Magnesium Level 2.0 mg/dL (1.8-2.4) 1.9 mg/dL (1.8-2.4) Glucose (Fingerstick) 206 mg/dL (70-99) White Blood Count 10.2 x10^3/uL (4.0-11.0) Red Blood Count 2.42 x10^6/uL (4.30-5.70) Hemoglobin 7.8 g/dL (13.0-17.5) Hematocrit 23.4 % (39.0-53.0) Mean Corpuscular Volume 98 fL (79-100) Mean Corpuscular Hemoglobin 32 pg (25-35) Mean Corpuscular Hemoglobin Concent 33 g/dL (31-37) Red Cell Distribution Width 15.3 % (11.5-14.5) Platelet Count 146 x10^3/uL (140-400) Neutrophils (%) (Auto) 75 % (31-73) Lymphocytes (%) (Auto) 17 % (24-48) Monocytes (%) (Auto) 7 % (0-9) Eosinophils (%) (Auto) 0 % (0-3) Basophils (%) (Auto) 1 % (0-3) Neutrophils # (Auto) 7.7 x10^3/uL (1.8-7.7) Lymphocytes # (Auto) 1.7 x10^3/uL (1.0-4.8) Monocytes # (Auto) 0.7 x10^3/uL (0.0-1.1) Eosinophils # (Auto) 0.0 x10^3/uL (0.0-0.7) Basophils # (Auto) 0.1 x10^3/uL (0.0-0.2) Triglycerides Level 77 mg/dL (0-150) Laboratory Tests Test 06/25/19 11:56 06/25/19 17:33 06/25/19 17:36 06/25/19 23:54 Glucose (Fingerstick) 204 mg/dL (70-99) 192 mg/dL (70-99) 206 mg/dL (70-99) Sodium Level 142 mmol/L (136-145) Potassium Level 4.4 mmol/L (3.5-5.1) Chloride Level 109 mmol/L (98-107) Carbon Dioxide Level 20 mmol/L (21-32) Anion Gap 13 (6-14) Blood Urea Nitrogen 46 mg/dL (8-26) Creatinine 1.5 mg/dL (0.7-1.3) Estimated GFR (Cockcroft-Gault) 45.4 Glucose Level 209 mg/dL (70-99) Calcium Level 7.6 mg/dL (8.5-10.1) Phosphorus Level 4.4 mg/dL (2.6-4.7) Magnesium Level 2.0 mg/dL (1.8-2.4) Test 06/26/19 05:00 White Blood Count 10.2 x10^3/uL (4.0-11.0) Red Blood Count 2.42 x10^6/uL (4.30-5.70) Hemoglobin 7.8 g/dL (13.0-17.5) Hematocrit 23.4 % (39.0-53.0) Mean Corpuscular Volume 98 fL (79-100) Mean Corpuscular Hemoglobin 32 pg (25-35) Mean Corpuscular Hemoglobin Concent 33 g/dL (31-37) Red Cell Distribution Width 15.3 % (11.5-14.5) Platelet Count 146 x10^3/uL (140-400) Neutrophils (%) (Auto) 75 % (31-73) Lymphocytes (%) (Auto) 17 % (24-48) Monocytes (%) (Auto) 7 % (0-9) Eosinophils (%) (Auto) 0 % (0-3) Basophils (%) (Auto) 1 % (0-3) Neutrophils # (Auto) 7.7 x10^3/uL (1.8-7.7) Lymphocytes # (Auto) 1.7 x10^3/uL (1.0-4.8) Monocytes # (Auto) 0.7 x10^3/uL (0.0-1.1) Eosinophils # (Auto) 0.0 x10^3/uL (0.0-0.7) Basophils # (Auto) 0.1 x10^3/uL (0.0-0.2) Sodium Level 145 mmol/L (136-145) Potassium Level 4.2 mmol/L (3.5-5.1) Chloride Level 114 mmol/L (98-107) Carbon Dioxide Level 19 mmol/L (21-32) Anion Gap 12 (6-14) Blood Urea Nitrogen 45 mg/dL (8-26) Creatinine 1.7 mg/dL (0.7-1.3) Estimated GFR (Cockcroft-Gault) 39.3 Glucose Level 193 mg/dL (70-99) Calcium Level 7.6 mg/dL (8.5-10.1) Phosphorus Level 4.7 mg/dL (2.6-4.7) Magnesium Level 1.9 mg/dL (1.8-2.4) Triglycerides Level 77 mg/dL (0-150) Medications Active Scripts Medications Dose Route/Sig Max Daily Dose Days Date Category Foltx Tablet (B12/Levomefolate Calcium/B-6) 1 Each Tablet 1 Each PO AFTRNOON 06/07/19 Reported Testosterone Cypionate 200 Mg/1 Ml Vial 1 Ml IM Q2WKS 06/07/19 Reported Novolog Mix 70-30 Flexpen Syrn (Insuln Asp Prt/Insulin Aspart) 100 Unit/1 Ml Insuln.pen 1 Unit SQ BIDACBL 06/07/19 Reported Lantus Solostar (Insulin Glargine,Hum.rec.anlog) 100 Unit/1 Ml Insuln.pen 30 Unit SQ QHS 06/07/19 Reported Nifedipine Er (Nifedipine) 60 Mg Tab.er.24 1 Tab PO DAILY 06/07/19 Reported Morphine Sulfate Er (Morphine Sulfate) 60 Mg Tablet.er 1 Tab PO BID 06/07/19 Reported Furosemide 40 Mg Tablet 40 Mg PO DAILY 06/07/19 Reported Finasteride 5 Mg Tablet 1 Tab PO DAILY 06/07/19 Reported Simvastatin 40 Mg Tablet 1 Tab PO QHS 06/07/19 Reported Metoprolol Succinate ( Xl ) (Metoprolol Succinate) 200 Mg Tab.er.24h 1 Tab PO DAILY 06/07/19 Reported Levothyroxine Sodium 175 Mcg Tablet 1 Tab PO DAILY 06/07/19 Reported Losartan-Hctz 100-12.5 Mg Tab (Losartan/Hydrochlorothiazide) 1 Each Tablet 1 Tab PO DAILY 06/07/19 Reported Comments CXR 06/25 reviewed bilateral lower lobe subsegmental atelectasis and/ or infiltrate.ett ok Impression . 1. Acute Respiratory failure, multifactorial, includes septic shock, colonic ileus EXTUBATED 06/25 2. septic shock 3. Erosive gastritis./ colonic ileus with recurrent emesis. high risk for aspiration. will not be able to protect his airway post extubation 4. C-Diff 5. Coronary artery disease, status post coronary artery bypass grafting. 6, COLONIC ILEUS 7. abnormal cxr with atelectasis 8. SHOULDER ABSCESS 9. RENATA 10. severe PCM 11. c diff colitis ID NOTE LUE abscess s/p 10 ml removal 06/13. group B strep -S/p Left shoulder open incision and drainage with arthrotomy, debridement of bone and bone cement, and joint irrigation 06/14 G B strep C. diff positive, 06/14 Plan . Nasal canula ultra filtration PER NEPHRO ABG, CXR NOTED ANTI BX PER ID D/W RN D/W RISK FOR ASPIRATION POST EXTUBATION. speech eval discussed w LITA Barron MD Jun 26, 2019 10:51
[2019-06-26] MEDS ORDERED: FUROSEMIDE 100 MG/10 ML VIAL. IVP ONE (11:00)
--- NOTE | 2019-06-26 11:44 | PN ---
DATE: 06/26/2019 SUBJECTIVE: The patient is resting, slightly propped up in bed, in no apparent distress. He is awake, alert, continued to complain of severe pain in both hip joints and his left shoulder. He has been on hydromorphone 2 mg every 2 hours. He was successfully extubated, actually maintaining his oxygen saturation at 100% on room air. He is off Levophed. Continues to be on IV ceftriaxone as well as IV Flagyl and oral vancomycin. He continued to be on a slow continuous ultrafiltration. PHYSICAL EXAMINATION: GENERAL: When I examined him, he looked pale, but no jaundice, cyanosis or thyromegaly. No jugular venous distension. No limb edema. VITAL SIGNS: His heart rate was 90, blood pressure was 116/75, temperature was 97.8, respiratory rate was 10, and oxygen saturation was 100% on room air. HEAD, EYES, EARS, NOSE AND THROAT: Normocephalic, atraumatic. He continued to have an NG tube. NECK: Supple. HEART: Showed normal first and second heart sounds. No gallop or murmur. CHEST: Shows central trachea, equal bilateral expansion, air entry, vesicular sounds. No crepitation or rhonchi. ABDOMEN: Distended, soft, nontender. NEUROLOGIC: He is awake, alert, responding appropriately. All cranial nerves intact. He moves his upper extremities to much greater extent than lower extremities. He has marked bilateral lower extremity edema and generalized anasarca. His intake was 2100, output was 552. LABORATORY DATA: His lab work this morning showed serum sodium of 145, potassium 4.2, chloride 114, bicarbonate 19, anion gap of 12, BUN 45, creatinine 1.7, estimated GFR was 39 mL per minute. His glucose 193, calcium was 7.6, phosphorus 4.7 and magnesium was 1.9. Serum triglycerides were 77. He has had an x-ray of his hip and pelvis, which basically showed no acute osseous abnormality, degenerative changes as described above. His chest x-ray showed that the heart and mediastinum stable. Lung volumes are low with stable bibasilar opacities, likely subsegmental atelectasis. ASSESSMENT: 1. Left upper extremity abscess, status post aspiration of 10 mL on 06/13/2019 with growth of group B streptococci for which he is on IV ceftriaxone. He is also status post left shoulder open incision and drainage with arthrotomy, debridement of bone and bone cement and joint irrigation on 06/14/2019. 2. He developed post-procedure respiratory failure for which he continued to be intubated, mechanically ventilated. He was successfully extubated yesterday. He is now maintaining his oxygen saturation 100% on room air. 3. He developed diarrhea and his Clostridium difficile toxin positive for which he is now on oral vancomycin through the NG tube as well as IV Flagyl. 4. Hypotension for which he was on Levophed and vasopressor. Both were discontinued. In fact, if anything he is hypertensive with mean arterial pressure of 95. 5. PENICILLIN ALLERGY. 6. Leukocytosis, resolved. 7. [place] syndrome with chronic ileus followed by the Gastroenterology team. 8. Coronary artery disease, status post coronary artery bypass graft surgery, clinically well compensated. 9. Urinary retention for which he has an indwelling Bledsoe catheter. 10. Acute kidney injury for which he continued to be in continuous renal replacement therapy; however, his blood pressure is stable and he could withstand regular hemodialysis. KERI DIGGS MD DR: PAIGE/chastity JOB#: [id number] / [id number]
[2019-06-26] MEDS: MORPHINE ER 30 MG TABLET.ER PO SCH ×2 (11:52→20:57)
[2019-06-26] MEDS: TPN PER PHARMACY MC PRN ×2 (12:58→13:02)
--- NOTE | 2019-06-26 13:00 | NUR ---
Pharmacy TPN Dosing Note S: ROSLYN MOORE is a 78 year old M Currently receiving Central Continuous TPN started 06/15/19 B:Pertinent PMH: Duodenal ulcer, Ileus Height: 6 feet, 0 inches Weight: 109.8 kg Current diet: clears LABS: Sodium: 146 Potassium: 4.2 Chloride: 114 Calcium: 7.6 Corrected Calcium: 9.76 Magnesium: 1.9 CO2: 19 SCr: 1.7 Glucose: 193 Albumin: 1.3 AST: 16 ALT: 7 TPN FORMULA: TPN TYPE: Central Continuous AMINO ACIDS: 110 gm DEXTROSE: 250 gm LIPIDS: 30 gm SODIUM ACETATE: 50 mEq POTASSIUM PHOSPHATE: 13.6 mmol MAGNESIUM: 10 mEq CALCIUM: 10 mEq MULTIPLE VITAMIN: 10 ml TRACE ELEMENTS: 1 ml(s) TPN PLAN: Macros adjusted per pigment pumper rec's. Sodium chloride removed and kphos reduced in tonight's bag. R: Change TPN per plan and ordered formula Will monitor electrolytes, glucose, and tolerance to TPN. Kellee Alicia RPH, 06/26/19 1300
--- NOTE | 2019-06-26 13:55 | PDOC ---
Renal-Progress Notes Subjective Notes Notes EXTUBATED, CONFUSED History of Present Illness Hx of present illness CONFUSED Vitals Vitals Vital Signs Date Time Temp Pulse Resp B/P (MAP) Pulse Ox O2 Delivery O2 Flow Rate FiO2 06/26/19 13:00 97 20 152/74 (100) 99 Room Air 06/26/19 12:00 98.0 98.0 06/26/19 11:52 2.0 Weight Weight [ ] I.O. Intake and Output Intake and Output 06/26/19 07:00 Intake Total 1611.84 ml Output Total 365 ml Balance 1246.84 ml Intake Oral 0 ml IV Total 1611.84 ml Output Urine Total 365 ml Labs Labs Laboratory Tests Test 06/25/19 17:33 06/25/19 17:36 06/25/19 23:54 06/26/19 05:00 Glucose (Fingerstick) 192 mg/dL (70-99) 206 mg/dL (70-99) Sodium Level 142 mmol/L (136-145) 145 mmol/L (136-145) Potassium Level 4.4 mmol/L (3.5-5.1) 4.2 mmol/L (3.5-5.1) Chloride Level 109 mmol/L (98-107) 114 mmol/L (98-107) Carbon Dioxide Level 20 mmol/L (21-32) 19 mmol/L (21-32) Anion Gap 13 (6-14) 12 (6-14) Blood Urea Nitrogen 46 mg/dL (8-26) 45 mg/dL (8-26) Creatinine 1.5 mg/dL (0.7-1.3) 1.7 mg/dL (0.7-1.3) Estimated GFR (Cockcroft-Gault) 45.4 39.3 Glucose Level 209 mg/dL (70-99) 193 mg/dL (70-99) Calcium Level 7.6 mg/dL (8.5-10.1) 7.6 mg/dL (8.5-10.1) Phosphorus Level 4.4 mg/dL (2.6-4.7) 4.7 mg/dL (2.6-4.7) Magnesium Level 2.0 mg/dL (1.8-2.4) 1.9 mg/dL (1.8-2.4) White Blood Count 10.2 x10^3/uL (4.0-11.0) Red Blood Count 2.42 x10^6/uL (4.30-5.70) Hemoglobin 7.8 g/dL (13.0-17.5) Hematocrit 23.4 % (39.0-53.0) Mean Corpuscular Volume 98 fL (79-100) Mean Corpuscular Hemoglobin 32 pg (25-35) Mean Corpuscular Hemoglobin Concent 33 g/dL (31-37) Red Cell Distribution Width 15.3 % (11.5-14.5) Platelet Count 146 x10^3/uL (140-400) Neutrophils (%) (Auto) 75 % (31-73) Lymphocytes (%) (Auto) 17 % (24-48) Monocytes (%) (Auto) 7 % (0-9) Eosinophils (%) (Auto) 0 % (0-3) Basophils (%) (Auto) 1 % (0-3) Neutrophils # (Auto) 7.7 x10^3/uL (1.8-7.7) Lymphocytes # (Auto) 1.7 x10^3/uL (1.0-4.8) Monocytes # (Auto) 0.7 x10^3/uL (0.0-1.1) Eosinophils # (Auto) 0.0 x10^3/uL (0.0-0.7) Basophils # (Auto) 0.1 x10^3/uL (0.0-0.2) Triglycerides Level 77 mg/dL (0-150) Test 06/26/19 13:28 Glucose (Fingerstick) 162 mg/dL (70-99) Micro Micro Microbiology 06/21/19 - Final, Complete 06/21/19 - Final, Complete 06/21/19 - Final, Complete 06/21/19 Gram Stain Evaluation - Final, Complete 06/21/19 Sputum Culture - Final, Complete 06/21/19 Sputum Result 1 - Final, Complete 06/14/19 AFB Specimen Processing Tissue - Final, Resulted 06/14/19 Acid Fast Bacilli Culture, Resulted Pending 06/14/19 Gram Stain - Final, Resulted 06/14/19 Fungal Culture - Preliminary, Resulted 06/14/19 Fungal Culture Result 1 - Preliminary, Resulted 06/13/19 Blood Culture - Final, Complete NO GROWTH AFTER 5 DAYS Review of Systems Constitutional: yes: other (CONFUSED) Physical Exam General Appearance: moderate distress Skin: warm Respiratory: decreased breath sounds Heart: S1S2 Abdomen: soft, bowel sounds present Genitourinary: bladder flat Extremities: pulses present, no edema, atrophy Neurology: other (SEDATED) Musculoskeletal: Other Assessment Assessment IMP [id number] OVERALL ALL MET ACIDOSIS CKD STAGE 3-CR PROB ABOUT 1.5 SEPSIS HYPOTENSION URINARY RETENTION LEFT SHOULDER ABSCESS S/P DRAINAGE AND ARTHROTOMY LEFT SHOULDER GASTRITIS LEUCOCYTOSIS BPH RESP FAILURE-S.P EXTUBATION PLAN OFF ALL HIS ANTIHYPERTENSIVES AND DIURETICS ALSO OFF HIS FLOMAX FOR NOW DUE TO HYPOTENSION ANTIBIOTICS ORTHOPEDIC EVAL OFF IVF'S TPN ALBUMIN AND LASIX SCHEDULED WILL STOP SCUF WILL FOLLOW D/W DEREJE ECHAVARRIA MD Jun 26, 2019 13:55
--- NOTE | 2019-06-26 13:59 | PDOC4 ---
Operative Note Operative Note Date: Jun 14, 2019 Pre-Op Diagnosis Periprosthetic abscess left shoulder joint, infected total shoulder arthroplasty (direct infection of left shoulder in infectious and parasitic diseases classified elsewhere M01.X12) (Infection and inflammatory reaction due to other internal joint prosthesis, initial encounter T84.59XA) Post-Op Diagnosis Periprosthetic abscess left shoulder joint, infected total shoulder arthroplasty Procedure Performed Left shoulder open incision and drainage with arthrotomy, debridement of bone and bone cement, and joint irrigation CPT 25340 Surgeon Lyssa Anesthesiologist Roberta Anesthesia Type: General Blood Loss 100 mL Specimens Obtained Left shoulder abscess fluid in specimen cup for aerobe, anaerobe, fungal, AFB Findings High volume of pus under pressure: purulent shoulder joint, 400 mL of pus, yellowish color, no apparent odor. The implants seemed stable to palpation and finger traction without gross loosening. 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 I used rongeurs for debridement of nonviable deep tissue/abscess remnants, including small amounts of bone at the upper humerus, and a small amount of bone cement. Complications None Operative Note This patient is a 78-year-old with history of multiple prior surgeries on the left shoulder. He now appears septic with shoulder abscess. I tried to transfer him to [facility] for definitive care but they refused. His original operating surgeon was [place] the [place]. [facility] with implant retention. I think he is too ill at this time to warrant removal of all of the implants, and I don't think he would survive that surgery. I recommended possible removal of the implants at a later date, as incision and arthrotomy and drainage of the current shoulder abscess is unlikely to be curative for deep infection. I do think current surgery will be lifesaving, otherwise the progression of sepsis would likely be fatal. I discussed this with the the patient and patient's family and they agreed. He is in critical condition, on pressors and in the ICU and surgery is urgent. Written consent was obtained. The patient was transferred from the intensive care unit to the operating room. He was placed in the beachchair position with the bony prominences well-padded and the eyes protected. An arterial line was used in the left arm, so sterile skin preparation and draping were modified. The arm was still draped free as typical for shoulder surgery, however the nonsterile portion of the hand and wrist were then placed on the patient's abdomen and covered with additional sterile draping. The shoulder had been prepared circumferentially and sterile adhesive drapes were applied. The previous deltopectoral incision was used. Sharp dissection was used and Bovie electrocautery was used as needed for hemostasis. The deltopectoral incision was made and the deltoid and pectoralis were retracted. The shoulder capsules was incised. About 400 mL of pus was encountered. Cultures were taken. Suction was used to remove the pus, and gentle manipulation and digital dissection were used to make sure that all of the pus from the shoulder was removed. The implants were noted and palpated, and probed with a [place] elevator.The glenosphere and the humeral component are stable without loosening or obvious osteomyelitis. The shoulder was noted to be unstable, with juma dislocation of the reverse shoulder arthroplasty articulation, and no apparent ligamentous or muscular stability. I attempted a reduction, and there is too much tissue, ligament and muscle laxity to maintain glenohumeral reduction. There was a prominent area of proximal bone cement and humerus but no loosening otherwise and no apparent other nonviable or easily removable tissue. I used a rongeurs for excisional debridement of a small amount of bone and cement at the proximal humerus leaving the humeral component stable. 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 6 L of saline were irrigated. A Hemovac drain was placed. The incision was closed in layers with PDS suture and thiago. Needle and sponge counts were correct. There were no apparent complications. He returned to ICU still in critical condition, but his hemodynamics appeared to be improving already. BRITT TANG MD Jun 26, 2019 13:59
--- NOTE | 2019-06-26 14:50 | RAD ---
KUB History: Ileus Comparison: June 22, 2019 Findings: 2 supine AP views of abdomen are submitted. There is enteric catheter terminating in the superior abdomen likely in the stomach. There are persistent prominent gas dilated loops of the colon, relative paucity of gas in the pelvis. There is probably also degree of bowel distention. Overall degree of colonic distention is probably unchanged. There is inferior lumbar degenerative disc disease and spondylosis as well as dextroscoliosis. There is some vas deferens calcification. Impression: 1. There is persistent colonic gas dilatation, also some gas distention of the small bowel. Findings could be due to ileus unless clinical suspicion for more distal colonic obstruction. Electronically signed by: Ilya Chan MD (06/26/2019 2:47 PM) [id number]
--- NOTE | 2019-06-26 16:08 | PDOC2 ---
PALLIATIVE CARE Palliative Care Note Palliative Care Patient alert/confused at times. Spoke with Purnima and son Rangel. Reviewed current medical condition. Confirmed DNR/DNI Off CRRT. Extubated. Continue current treatment plan. Understand the should concerns and infection remain an issue. Plan Select when discharged. NIKKO NEWBY Jun 26, 2019 16:08
--- NOTE | 2019-06-26 17:35 | NUR ---
Wound care: Patient seen per follow up wound care regarding multiple wounds. All wounds cleansed and assessed. Recommendations for Aquacel Ag, ABD pad and kerlix to left lower leg and left heel, as they are draining and very macerated. Patient is edematous throughout. The the DTI wounds on the left lateral lower leg and the left medial foot recommendations for ABD pad and kerlix. Dressings applied. Patient also has a stage III with DTI on the coccyx. Recommendations for contact layer and foam dressing. Dressings applied. left shoulder surgical incision also cleansed and assessed. Redressed with gauze and tape. [place] are intact and approximated. Dressing change instructions left in room. Patient repositioned to right side using wedge and bilateral lower legs elevated. Assisted patient with drink. Will follow patient regarding wound care. Bed lowered and call light in reach.
[2019-06-26] MEDS: FUROSEMIDE 40 MG/4 ML VIAL. IVP SCH ×2 (18:08→23:55)
[2019-06-26] MEDS: SIMVASTATIN 40 MG TABLET. PO SCH (20:56)
[2019-06-26] MEDS: INSULIN GLARGINE SYRINGE. SQ SCH (20:58)
[2019-06-26] MEDS ORDERED: AMINO ACID IV SCH ×9 (22:00)
[2019-06-26] MEDS ORDERED: TOTAL PARENTERAL NUTRITION IV SCH ×9 (22:00)
[2019-06-26] MEDS ORDERED: DEXTROSE 70% IV SCH ×9 (22:00)
[2019-06-26] MEDS ORDERED: [UNRECOGNIZED DRUG - OTHER] IV SCH ×9 (22:00)
[2019-06-27] VITALS (23 sets, daily range): BP systolic 131–195; BP diastolic 60–94
[2019-06-27] MEDS: HYDROmorphone 2 MG/ML VIAL IV PRN ×4 (02:23→22:37)
[2019-06-27 05:28] LABS: ALBUMIN 2.8 g/dL (3.4-5.0); ALBUMIN/GLOBULIN RATIO 1.2 (1.0-1.7); CALCIUM 8.3 mg/dL (8.5-10.1); GFR 32.6; MAGNESIUM 1.8 mg/dL (1.8-2.4); PHOSPHORUS 5.2 mg/dL (2.6-4.7); POTASSIUM 3.8 mmol/L (3.5-5.1); TOTAL BILIRUBIN 0.3 mg/dL (0.2-1.0); TOTAL PROTEIN 5.2 g/dL (6.4-8.2)
[2019-06-27] MEDS: LEVOTHYROXINE 175 MCG TABLET PO SCH (06:05)
[2019-06-27 06:06] LABS: BASO # 0.1 x10^3/uL (0.0-0.2); BASO % 1 % (0-3); EOS # 0.1 x10^3/uL (0.0-0.7); EOS % 1 % (0-3); LYMPH # 1.5 x10^3/uL (1.0-4.8); LYMPH % 19 % (24-48); MEAN CORPUSCULAR HEMOGLOBIN 32 pg (25-35); MEAN CORPUSCULAR HGB CONC 33 g/dL (31-37); MEAN CORPUSCULAR VOLUME 97 fL (79-100); MONO # 0.5 x10^3/uL (0.0-1.1); MONO % 7 % (0-9); NEUT # 5.7 x10^3/uL (1.8-7.7); NEUT % 72 % (31-73); PLATELET COUNT 147 x10^3/uL (140-400); RED BLOOD COUNT 1.94 x10^6/uL (4.30-5.70); RED CELL DISTRIBUTION WIDTH 15.5 % (11.5-14.5); WHITE BLOOD COUNT 7.9 x10^3/uL (4.0-11.0)
[2019-06-27] MEDS: FUROSEMIDE 40 MG/4 ML VIAL. IVP SCH ×3 (06:06→18:06)
[2019-06-27] MEDS: INSULIN LISPRO 300 UNITS/3 ML VIAL. SQ SCH ×3 (06:16→18:12)
--- NOTE | 2019-06-27 07:13 | PDOC ---
Infectious Disease Note Subjective: Subjective Pt says feels ok wants to go home tolerating clear liquids No fevers ROS: ROS Negative otherwise. Vital Signs: Vital Signs Vital Signs Date Time Temp Pulse Resp B/P (MAP) Pulse Ox O2 Delivery O2 Flow Rate FiO2 06/27/19 06:00 85 12 174/83 (113) 100 Room Air 06/27/19 04:00 98.2 98.2 06/26/19 17:12 2.0 Physical Exam: PHYSICAL EXAM GENERAL Pt alert,weak,comfortable on nasal O2 HEENT: no icterus LUNGS: dec bs at bases HEART: S1, S2. ABDOMEN: Obese, soft + BS. Rectal tube out : Bledsoe. scrotal edema EXTREMITIES: Generalized edema. Left shoulder incision well-approx/thiago, clean LLE bandaged SKIN: Without signs of rash NEUROLOGIC: Awake, calm Temp HDC (06/15) [facility] Medications: Inpatient Meds: Current Medications Medications (Trade) Dose Ordered Sig/Lauren Start Time Stop Time Status Last Admin Dose Admin Albumin Human 100 ml @ 100 mls/hr Q12HR 06/26/19 10:35 06/26/19 21:00 100 MLS/HR Amino Acids/ Electrolytes/ Dextrose 1,000 ml @ 80 mls/hr [id number] 06/14/19 10:30 06/15/19 21:59 DC 06/15/19 16:23 80 MLS/HR Bisacodyl (Dulcolax Supp) 10 mg 1X ONCE 06/07/19 17:45 06/07/19 17:46 DC 06/07/19 21:40 10 MG Bisacodyl (Dulcolax Tab) 5 mg PRN DAILY PRN 06/11/19 15:45 06/20/19 11:31 DC Bupivacaine HCl/ Epinephrine Bitart (Sensorcaine-Epi 0.25%-1:[id number] Mpf) 30 ml 1X ONCE 06/14/19 17:45 06/14/19 17:46 Cancel Ceftriaxone Sodium (Rocephin) 2 gm Q24H 06/19/19 09:00 06/26/19 08:21 2 GM Clindamycin Phosphate 50 ml @ As Directed STK-MED ONCE 06/14/19 18:07 06/14/19 18:07 DC Daptomycin 560 mg/ Sodium Chloride 50 ml @ 100 mls/hr Q48H 06/15/19 14:00 06/18/19 07:56 DC 06/17/19 14:29 100 MLS/HR Dexamethasone Sodium Phosphate (Decadron) 4 mg STK-MED ONCE 06/14/19 16:17 06/14/19 16:17 DC Dexmedetomidine HCl 400 mcg/ Sodium Chloride 100 ml @ 5.58 mls/hr CONT PRN 06/20/19 16:15 06/25/19 03:45 5.58 MLS/HR Dextrose (Dextrose 50%-Water Syringe) 25 gm 1X ONCE 06/24/19 11:45 06/24/19 11:46 DC Diclofenac Sodium (Voltaren) 1 clare BID 06/25/19 15:30 06/26/19 21:00 1 CLARE Diphenhydramine HCl (Benadryl) 25 mg 1X PRN PRN 06/20/19 07:30 06/21/19 07:29 DC Ephedrine Sulfate (ePHEDrine PF IN SALINE SYRINGE) 50 mg STK-MED ONCE 06/14/19 19:21 06/14/19 19:21 DC Famotidine (Pepcid Vial) 20 mg STK-MED ONCE 06/14/19 16:17 06/14/19 16:17 DC Fentanyl (Duragesic 50mcg/ Hr Patch) 1 patch Q3DAYS 06/25/19 12:00 06/25/19 12:10 1 PATCH Fentanyl Citrate (Fentanyl 2ml Vial) 50 mcg PRN Q1HR PRN 06/20/19 16:15 06/25/19 13:52 DC 06/25/19 12:10 50 MCG Finasteride (Proscar) 5 mg DAILY 06/12/19 12:00 06/13/19 09:39 DC Furosemide (Lasix) 40 mg Q6HRS 06/26/19 18:00 06/27/19 06:06 40 MG Heparin Sodium (Porcine) (Heparin Sodium) 5,000 unit BID 06/24/19 09:00 06/26/19 21:00 5,000 UNIT Hydromorphone HCl (Dilaudid) 2 mg PRN Q2HRS PRN 06/25/19 19:00 06/27/19 02:23 2 MG Info (PHARMACY MONITORING -- do not chart) 1 each PRN DAILY PRN 06/20/19 07:30 Info (Tpn Per Pharmacy) 1 each PRN DAILY PRN 06/15/19 11:30 06/26/19 13:02 1 EACH Insulin Glargine (Lantus Syringe) 30 unit QHS 06/08/19 21:00 06/26/19 21:00 30 UNIT Insulin Human Lispro (HumaLOG) 0-9 UNITS Q6HRS 06/16/19 12:00 06/27/19 06:16 4 UNITS Ketamine HCl (Ketamine) 50 mg STK-MED ONCE 06/14/19 17:03 06/14/19 17:03 DC Levothyroxine Sodium (Synthroid) 175 mcg DAILY06 06/08/19 12:00 06/27/19 06:06 175 MCG Lidocaine HCl (Lidocaine Pf 2% Vial) 5 ml STK-MED ONCE 06/14/19 16:17 06/14/19 16:17 DC Lidocaine/Sodium Bicarbonate (Buffered Lidocaine 1%) 3 ml 1X ONCE 06/15/19 11:00 06/15/19 11:01 DC Lorazepam (Ativan) 0.5 mg PRN Q6HRS PRN 06/07/19 18:00 06/07/19 18:14 DC Losartan Potassium (Cozaar) 100 mg DAILY 06/08/19 12:00 06/14/19 13:01 DC 06/12/19 08:36 100 MG Magnesium Sulfate 50 ml @ 25 mls/hr 1X ONCE 06/16/19 08:30 06/16/19 10:29 DC 06/16/19 08:27 25 MLS/HR Meropenem 1 gm/ Sodium Chloride 100 ml @ 200 mls/hr DAILY 06/15/19 09:00 06/19/19 07:22 DC 06/18/19 10:55 200 MLS/HR Methylnaltrexone [place] (Relistor) 6 mg 1X ONCE 06/14/19 14:00 06/14/19 14:01 DC 06/14/19 14:15 6 MG Metoprolol Succinate (Toprol Xl) 200 mg DAILY 06/08/19 12:00 06/14/19 13:01 DC 06/12/19 08:36 200 MG Metronidazole 100 ml @ 100 mls/hr Q8HRS 06/24/19 09:00 06/27/19 06:06 100 MLS/HR Midazolam HCl (Versed) 2 mg PRN Q6HRS PRN 06/22/19 13:30 06/25/19 03:45 2 MG Morphine Sulfate (Ms Contin) 60 mg BID 06/08/19 12:00 06/26/19 21:00 60 MG Nicotine (Nicoderm Cq 21mg) 1 patch PRN DAILY PRN 06/07/19 18:00 06/07/19 18:14 DC Nifedipine (Procardia Xl) 60 mg DAILY 06/08/19 12:00 06/14/19 13:01 DC 06/12/19 08:36 60 MG Non-Formulary Medication (Insuln Asp Prt/ Insulin Aspart (Novolog Mix 70-30 Flexpen Syrn)) 1 unit BIDACBL 06/08/19 11:30 06/08/19 19:34 DC Norepinephrine Bitartrate 250 ml @ 17.398 mls/ hr CONT PRN 06/14/19 14:30 06/18/19 17:55 34.796 MLS/HR Ondansetron HCl (Zofran) 4 mg STK-MED ONCE 06/14/19 16:17 06/14/19 16:17 DC Pantoprazole Sodium (PROTONIX VIAL for IV PUSH) 40 mg DAILYAC 06/14/19 07:30 06/26/19 07:34 40 MG Pantoprazole Sodium (Protonix) 40 mg DAILYAC 06/12/19 07:30 06/13/19 13:27 DC 06/12/19 08:36 40 MG Phenylephrine HCl (PHENYLEPHRINE in 0.9% NACL PF) 1 mg STK-MED ONCE 06/14/19 17:03 06/14/19 17:04 DC Polyethylene Glycol (miraLAX PACKET) 17 gm PRN DAILY PRN 06/11/19 15:45 06/20/19 11:31 DC Potassium Chloride 15 meq/ Bicarbonate Dialysis Soln w/ out KCl 5,007.5 ml @ 1,500 mls/ hr Q3H21M 06/22/19 08:00 06/23/19 14:20 DC 06/23/19 12:05 1,500 MLS/HR Potassium Chloride 20 meq/ Bicarbonate Dialysis Soln w/ out KCl 5,010 ml @ 1,500 mls/hr Q3H21M 06/20/19 18:00 06/22/19 11:00 DC 06/22/19 10:55 1,500 MLS/HR Propofol 100 ml @ 0 mls/hr CONT PRN 06/14/19 20:00 06/25/19 11:53 DC 06/15/19 10:33 8.351 MLS/HR Ringer's Solution 1,000 ml @ 75 mls/hr [id number] 06/08/19 09:15 06/09/19 08:01 DC 06/08/19 14:01 75 MLS/HR Rocuronium [place] (Zemuron) 50 mg STK-MED ONCE 06/14/19 16:32 06/14/19 16:32 DC Simvastatin (Zocor) 40 mg QHS 06/08/19 21:00 06/26/19 21:00 40 MG Sodium Bicarbonate 50 meq/Sodium Chloride 1,050 ml @ 125 mls/hr Q8H24M 06/15/19 10:15 06/16/19 18:21 DC 06/16/19 09:26 125 MLS/HR Sodium Acetate 50 meq/Potassium Phosphate 13.6 mmol/Magnesium Sulfate 10 meq/ Calcium Gluconate 10 meq/ Multivitamins 10 ml/Chromium/ Copper/Manganese/ Seleni/Zn 1 ml/ Total Parenteral Nutrition/Amino Acids/Dextrose/ Fat Emulsion Intravenous 1,300 ml @ 54.167 mls/ hr TPN CONT 06/26/19 22:00 06/27/19 21:59 06/26/19 23:26 54.167 MLS/HR Sodium Chloride 50 meq/Sodium Acetate 50 meq/ Potassium Phosphate 20.4 mmol/Magnesium Sulfate 10 meq/ Calcium Gluconate 10 meq/ Multivitamins 10 ml/Chromium/ Copper/Manganese/ Seleni/Zn 1 ml/ Total Parenteral Nutrition/Amino Acids/Dextrose/ Fat Emulsion Intravenous 1,300 ml @ 54.167 mls/ hr TPN CONT 06/25/19 22:00 06/26/19 21:59 DC 06/25/19 22:18 54.167 MLS/HR Sodium Chloride 90 meq/Potassium Chloride 50 meq/ Magnesium Sulfate 10 meq/Calcium Gluconate 10 meq/ Multivitamins 10 ml/Chromium/ Copper/Manganese/ Seleni/Zn 1 ml/ Total Parenteral Nutrition/Amino Acids/Dextrose 1,512 ml @ 63 mls/hr TPN CONT 06/15/19 22:00 06/16/19 21:59 DC 06/16/19 00:19 63 MLS/HR Sodium Chloride 90 meq/Potassium Chloride 50 meq/ Magnesium Sulfate 10 meq/Calcium Gluconate 10 meq/ Multivitamins 10 ml/Chromium/ Copper/Manganese/ Seleni/Zn 1 ml/ Total Parenteral Nutrition/Amino Acids/Dextrose/ Fat Emulsion Intravenous 1,512 ml @ 63 mls/hr TPN CONT 06/16/19 22:00 06/17/19 21:59 DC 06/16/19 22:43 63 MLS/HR Sodium Chloride 90 meq/Potassium Chloride 50 meq/ Potassium Phosphate 13.6 mmol/Magnesium Sulfate 10 meq/ Calcium Gluconate 10 meq/ Multivitamins 10 ml/Chromium/ Copper/Manganese/ Seleni/Zn 1 ml/ Total Parenteral Nutrition/Amino Acids/Dextrose/ Fat Emulsion Intravenous 1,512 ml @ 63 mls/hr TPN CONT 06/17/19 22:00 06/18/19 21:59 DC 06/17/19 21:48 63 MLS/HR Sodium Chloride 90 meq/Potassium Chloride 70 meq/ Potassium Phosphate 13.6 mmol/Magnesium Sulfate 10 meq/ Calcium Gluconate 10 meq/ Multivitamins 10 ml/Chromium/ Copper/Manganese/ Seleni/Zn 1 ml/ Total Parenteral Nutrition/Amino Acids/Dextrose/ Fat Emulsion Intravenous 1,512 ml @ 63 mls/hr TPN CONT 06/18/19 22:00 06/19/19 21:59 DC 06/18/19 22:59 63 MLS/HR Sodium Chloride 90 meq/Potassium Chloride 85 meq/ Potassium Phosphate 13.6 mmol/Magnesium Sulfate 10 meq/ Calcium Gluconate 10 meq/ Multivitamins 10 ml/Chromium/ Copper/Manganese/ Seleni/Zn 1 ml/ Insulin Human Regular 10 unit/ Total Parenteral Nutrition/Amino Acids/Dextrose/ Fat Emuls... 1,512 ml @ 63 mls/hr TPN CONT 06/19/19 22:00 06/20/19 21:59 DC 06/19/19 22:27 63 MLS/HR Sodium Chloride 100 meq/Potassium Chloride 95 meq/ Potassium Phosphate 13.6 mmol/Magnesium Sulfate 10 meq/ Calcium Gluconate 10 meq/ Multivitamins 10 ml/Chromium/ Copper/Manganese/ Seleni/Zn 1 ml/ Insulin Human Regular 10 unit/ Total Parenteral Nutrition/Amino Acids/Dextrose/ Fat Emuls... 1,512 ml @ 63 mls/hr TPN CONT 06/20/19 22:00 06/21/19 21:59 DC 06/20/19 21:54 63 MLS/HR Sodium Chloride 100 meq/Potassium Chloride 95 meq/ Potassium Phosphate 20.4 mmol/Magnesium Sulfate 10 meq/ Calcium Gluconate 10 meq/ Multivitamins 10 ml/Chromium/ Copper/Manganese/ Seleni/Zn 1 ml/ Insulin Human Regular 10 unit/ Total Parenteral Nutrition/Amino Acids/Dextrose/ Fat Emuls... 1,300 ml @ 54.167 mls/ hr TPN CONT 06/21/19 22:00 06/22/19 21:59 DC 06/21/19 22:12 54.167 MLS/HR Sodium Chloride 100 meq/Potassium Phosphate 20.4 mmol/Magnesium Sulfate 10 meq/ Calcium Gluconate 10 meq/ Multivitamins 10 ml/Chromium/ Copper/Manganese/ Seleni/Zn 1 ml/ Insulin Human Regular 10 unit/ Total Parenteral Nutrition/Amino Acids/Dextrose/ Fat Emulsion Intravenous 1,300 ml @ 54.167 mls/ hr TPN CONT 06/23/19 22:00 06/24/19 21:59 DC 06/23/19 21:35 54.167 MLS/HR Sodium Chloride 100 meq/Potassium Phosphate 20.4 mmol/Magnesium Sulfate 10 meq/ Calcium Gluconate 10 meq/ Multivitamins 10 ml/Chromium/ Copper/Manganese/ Seleni/Zn 1 ml/ Total Parenteral Nutrition/Amino Acids/Dextrose/ Fat Emulsion Intravenous 1,300 ml @ 54.167 mls/ hr TPN CONT 06/24/19 22:00 06/25/19 21:59 DC 06/24/19 21:21 54.167 MLS/HR Sodium Chloride 100 meq/Sodium Phosphate 10 mmol/ Potassium Chloride 95 meq/ Potassium Phosphate 20.4 mmol/Magnesium Sulfate 10 meq/ Calcium Gluconate 2 meq/ Multivitamins 10 ml/Chromium/ Copper/Manganese/ Seleni/Zn 1 ml/ Insulin Human Regular 10 unit/ Total Parenteral Nutrition/Am... 1,300 ml @ 54.167 mls/ hr TPN CONT 06/22/19 22:00 06/23/19 21:59 DC 06/22/19 21:50 54.167 MLS/HR Sodium Chloride 100 meq/Sodium Phosphate 20 mmol/ Potassium Chloride 95 meq/ Potassium Phosphate 20.4 mmol/Magnesium Sulfate 10 meq/ Multivitamins 10 ml/Chromium/ Copper/Manganese/ Seleni/Zn 1 ml/ Insulin Human Regular 10 unit/ Total Parenteral Nutrition/Amino Acids/Dextrose/ Fat Emuls... 1,300 ml @ 54.167 mls/ hr TPN CONT 06/23/19 22:00 06/23/19 12:26 DC Sodium Phosphate 20 mmol/Dextrose 256.6667 ml @ 64.153 m... 1X ONCE 06/23/19 09:00 06/23/19 13:00 DC 06/23/19 09:04 64.153 MLS/HR Succinylcholine Chloride (Anectine) 200 mg STK-MED ONCE 06/14/19 16:17 06/14/19 16:17 DC Tamsulosin HCl (Flomax) 0.4 mg QHS 06/12/19 21:00 06/14/19 13:01 DC 06/12/19 21:26 0.4 MG Testosterone Cypionate (Depo-Testosterone) 200 mg Q2WKS 06/22/19 09:00 Vancomycin HCl (Vancomycin Oral Solution) 125 mg [id number] 06/16/19 09:00 06/26/19 21:00 125 MG Vasopressin 40 unit/Dextrose 102 ml @ 6 mls/hr CONT PRN 06/15/19 14:30 06/23/19 05:07 6 MLS/HR Vitamin B Complex (Bud B) 1 tab DAILY 06/08/19 12:00 06/26/19 08:21 1 TAB Labs: Lab Laboratory Tests Test 06/26/19 13:28 06/26/19 17:56 06/26/19 21:06 06/26/19 23:54 Glucose (Fingerstick) 162 mg/dL (70-99) 132 mg/dL (70-99) 200 mg/dL (70-99) 200 mg/dL (70-99) Test 06/27/19 05:00 Sodium Level 142 mmol/L (136-145) Potassium Level 3.8 mmol/L (3.5-5.1) Chloride Level 111 mmol/L (98-107) Carbon Dioxide Level 18 mmol/L (21-32) Anion Gap 13 (6-14) Blood Urea Nitrogen 58 mg/dL (8-26) Creatinine 2.0 mg/dL (0.7-1.3) Estimated GFR (Cockcroft-Gault) 32.6 BUN/Creatinine Ratio 29 (6-20) Glucose Level 193 mg/dL (70-99) Calcium Level 8.3 mg/dL (8.5-10.1) Phosphorus Level 5.2 mg/dL (2.6-4.7) Magnesium Level 1.8 mg/dL (1.8-2.4) Total Bilirubin 0.3 mg/dL (0.2-1.0) Aspartate Amino Transf (AST/SGOT) 19 U/L (15-37) Alanine Aminotransferase (ALT/SGPT) 14 U/L (16-63) Alkaline Phosphatase 57 U/L (46-116) Total Protein 5.2 g/dL (6.4-8.2) Albumin 2.8 g/dL (3.4-5.0) Albumin/Globulin Ratio 1.2 (1.0-1.7) Objective: Assessment: LUE abscess s/p removal 06/13. group B strep -S/p Left shoulder open incision and drainage with arthrotomy, debridement of bone and bone cement, and joint irrigation 06/14 G B strep C. diff positive, 06/14 PCN allergy - Hives - believes has tolerated Cephalosporins per his RENATA requiring HD, on vasopressin off levophed Post op resp failure - intubated - Pulm following Leukocytosis - resolved thrombocytopenia hematology following ? [place] syndrome - GI following CAD - Cardiology following H/o MRSA H/o Group B strep sepsis Erosive Gastritis s/p EGD 06/08 Urinary retention - Bledsoe placed 06/12 Fractures of 2 superior mediastinal wires Plan: Plan of Care Rocephin and PO vanc DC IV Flagyl 06/27 Monitor labs/temp Contact isolation Prognosis poor D/W nursing BLU PEACE MD Jun 27, 2019 07:13
[2019-06-27 07:28] LABS: HEMOGLOBIN 6.3 g/dL (13.0-17.5)
[2019-06-27 07:29] LABS: HEMATOCRIT 18.9 % (39.0-53.0)
[2019-06-27] MEDS: cefTRIAXone IV Push 2 GM VIAL. IVP SCH (09:00)
[2019-06-27] MEDS: PANTOPRAZOLE IV PUSH 40 MG VIAL. IVP SCH (09:56)
[2019-06-27] MEDS: MORPHINE ER 30 MG TABLET.ER PO SCH ×2 (09:57→20:56)
[2019-06-27] MEDS: ALBUMIN HUMAN 25% 100 ML IV SCH ×2 (09:58→20:56)
[2019-06-27] MEDS: VANCOMYCIN 125 MG/2.5 ML ORAL SOLUTION. PO SCH ×4 (09:58→20:55)
[2019-06-27] MEDS: VITAMIN B COMPLEX TABLET. PO SCH (09:58)
[2019-06-27] MEDS: FINASTERIDE 5 MG TABLET. PO SCH (09:58)
[2019-06-27] MEDS: DICLOFENAC SODIUM 1% TOPICAL GEL 100GM TUBE. TP SCH ×2 (09:59→21:01)
[2019-06-27] MEDS: HEPARIN for SUB-Q USE 5,000 UNIT/ML VIAL. SQ SCH ×2 (10:02→21:00)
--- NOTE | 2019-06-27 10:32 | PDOC ---
Renal-Progress Notes Subjective Notes Notes MORE ALERT History of Present Illness Hx of present illness IMPROVED Vitals Vitals Vital Signs Date Time Temp Pulse Resp B/P (MAP) Pulse Ox O2 Delivery O2 Flow Rate FiO2 06/27/19 10:02 19 93 Room Air 06/27/19 06:00 85 174/83 (113) 06/27/19 04:00 98.2 98.2 06/26/19 17:12 2.0 Weight Weight [ ] I.O. Intake and Output Intake and Output 06/27/19 07:00 Intake Total 2577 ml Output Total 2011 ml Balance 565 ml Intake Oral 835 ml IV Total 1742 ml Output Urine Total 2012 ml Labs Labs Laboratory Tests Test 06/26/19 13:28 06/26/19 17:56 06/26/19 21:06 06/26/19 23:54 Glucose (Fingerstick) 162 mg/dL (70-99) 132 mg/dL (70-99) 200 mg/dL (70-99) 200 mg/dL (70-99) Test 06/27/19 05:00 06/27/19 06:14 White Blood Count 7.9 x10^3/uL (4.0-11.0) Red Blood Count 1.94 x10^6/uL (4.30-5.70) Hemoglobin 6.3 g/dL (13.0-17.5) Hematocrit 18.9 % (39.0-53.0) Mean Corpuscular Volume 97 fL (79-100) Mean Corpuscular Hemoglobin 32 pg (25-35) Mean Corpuscular Hemoglobin Concent 33 g/dL (31-37) Red Cell Distribution Width 15.5 % (11.5-14.5) Platelet Count 147 x10^3/uL (140-400) Neutrophils (%) (Auto) 72 % (31-73) Lymphocytes (%) (Auto) 19 % (24-48) Monocytes (%) (Auto) 7 % (0-9) Eosinophils (%) (Auto) 1 % (0-3) Basophils (%) (Auto) 1 % (0-3) Neutrophils # (Auto) 5.7 x10^3/uL (1.8-7.7) Lymphocytes # (Auto) 1.5 x10^3/uL (1.0-4.8) Monocytes # (Auto) 0.5 x10^3/uL (0.0-1.1) Eosinophils # (Auto) 0.1 x10^3/uL (0.0-0.7) Basophils # (Auto) 0.1 x10^3/uL (0.0-0.2) Sodium Level 142 mmol/L (136-145) Potassium Level 3.8 mmol/L (3.5-5.1) Chloride Level 111 mmol/L (98-107) Carbon Dioxide Level 18 mmol/L (21-32) Anion Gap 13 (6-14) Blood Urea Nitrogen 58 mg/dL (8-26) Creatinine 2.0 mg/dL (0.7-1.3) Estimated GFR (Cockcroft-Gault) 32.6 BUN/Creatinine Ratio 29 (6-20) Glucose Level 193 mg/dL (70-99) Calcium Level 8.3 mg/dL (8.5-10.1) Phosphorus Level 5.2 mg/dL (2.6-4.7) Magnesium Level 1.8 mg/dL (1.8-2.4) Total Bilirubin 0.3 mg/dL (0.2-1.0) Aspartate Amino Transf (AST/SGOT) 19 U/L (15-37) Alanine Aminotransferase (ALT/SGPT) 14 U/L (16-63) Alkaline Phosphatase 57 U/L (46-116) Total Protein 5.2 g/dL (6.4-8.2) Albumin 2.8 g/dL (3.4-5.0) Albumin/Globulin Ratio 1.2 (1.0-1.7) Glucose (Fingerstick) 180 mg/dL (70-99) Micro Micro Microbiology 06/21/19 - Final, Complete 06/21/19 - Final, Complete 06/21/19 - Final, Complete 06/21/19 Gram Stain Evaluation - Final, Complete 06/21/19 Sputum Culture - Final, Complete 06/21/19 Sputum Result 1 - Final, Complete 06/14/19 AFB Specimen Processing Tissue - Final, Resulted 06/14/19 Acid Fast Bacilli Culture, Resulted Pending 06/14/19 Gram Stain - Final, Resulted 06/14/19 Fungal Culture - Preliminary, Resulted 06/14/19 Fungal Culture Result 1 - Preliminary, Resulted 06/13/19 Blood Culture - Final, Complete NO GROWTH AFTER 5 DAYS Review of Systems Constitutional: yes: other (CONFUSED) Physical Exam General Appearance: moderate distress Skin: warm Respiratory: decreased breath sounds Heart: S1S2 Abdomen: soft, bowel sounds present Genitourinary: bladder flat Extremities: pulses present, no edema, atrophy Neurology: other (SEDATED) Musculoskeletal: Other Assessment Assessment IMP [id number] WITH CR OF 2.0 MET ACIDOSIS CKD STAGE 3-CR PROB ABOUT 1.5 SEPSIS HYPOTENSION URINARY RETENTION LEFT SHOULDER ABSCESS S/P DRAINAGE AND ARTHROTOMY LEFT SHOULDER GASTRITIS SEVERE ANEMIA LEUCOCYTOSIS BPH RESP FAILURE-S.P EXTUBATION PLAN PRBC TODAY OFF ALL HIS ANTIHYPERTENSIVES AND DIURETICS ALSO OFF HIS FLOMAX FOR NOW DUE TO HYPOTENSION ANTIBIOTICS ORTHOPEDIC EVAL OFF IVF'S TPN ALBUMIN AND LASIX SCHEDULED OFF SCUF MAINTAIN HD CATHETER STILL HAS LOTS OF EDEMA WILL FOLLOW D/W DEREJE ECHAVARRIA MD Jun 27, 2019 10:32
--- NOTE | 2019-06-27 10:50 | NUR ---
SS following up with discharge planning. Pt accepted at [facility], ; fax [phone]. SS phoned and faxed clinical updates to [facility]. SS will continue to follow for discharge planning.
--- NOTE | 2019-06-27 11:07 | PDOC ---
PULMONARY PROGRESS NOTES Subjective EXTUBATED 06/25 NO SOA Vitals Vital Signs Date Time Temp Pulse Resp B/P (MAP) Pulse Ox O2 Delivery O2 Flow Rate FiO2 06/27/19 10:02 19 93 Room Air 06/27/19 06:00 85 174/83 (113) 06/27/19 04:00 98.2 98.2 06/26/19 17:12 2.0 General: Alert, No acute distress Lungs: Other (decrease bs) Cardiovascular: S1, S2 Abdomen: Other (distended, firm, abdominal wall hernia) Extremities: Other (2+edema, scrotal edema) Skin: Warm Labs Laboratory Tests Test 06/25/19 11:56 06/25/19 17:33 06/25/19 17:36 06/25/19 23:54 Glucose (Fingerstick) 204 mg/dL (70-99) 192 mg/dL (70-99) 206 mg/dL (70-99) Sodium Level 142 mmol/L (136-145) Potassium Level 4.4 mmol/L (3.5-5.1) Chloride Level 109 mmol/L (98-107) Carbon Dioxide Level 20 mmol/L (21-32) Anion Gap 13 (6-14) Blood Urea Nitrogen 46 mg/dL (8-26) Creatinine 1.5 mg/dL (0.7-1.3) Estimated GFR (Cockcroft-Gault) 45.4 Glucose Level 209 mg/dL (70-99) Calcium Level 7.6 mg/dL (8.5-10.1) Phosphorus Level 4.4 mg/dL (2.6-4.7) Magnesium Level 2.0 mg/dL (1.8-2.4) Test 06/26/19 05:00 06/26/19 13:28 06/26/19 17:56 06/26/19 21:06 White Blood Count 10.2 x10^3/uL (4.0-11.0) Red Blood Count 2.42 x10^6/uL (4.30-5.70) Hemoglobin 7.8 g/dL (13.0-17.5) Hematocrit 23.4 % (39.0-53.0) Mean Corpuscular Volume 98 fL (79-100) Mean Corpuscular Hemoglobin 32 pg (25-35) Mean Corpuscular Hemoglobin Concent 33 g/dL (31-37) Red Cell Distribution Width 15.3 % (11.5-14.5) Platelet Count 146 x10^3/uL (140-400) Neutrophils (%) (Auto) 75 % (31-73) Lymphocytes (%) (Auto) 17 % (24-48) Monocytes (%) (Auto) 7 % (0-9) Eosinophils (%) (Auto) 0 % (0-3) Basophils (%) (Auto) 1 % (0-3) Neutrophils # (Auto) 7.7 x10^3/uL (1.8-7.7) Lymphocytes # (Auto) 1.7 x10^3/uL (1.0-4.8) Monocytes # (Auto) 0.7 x10^3/uL (0.0-1.1) Eosinophils # (Auto) 0.0 x10^3/uL (0.0-0.7) Basophils # (Auto) 0.1 x10^3/uL (0.0-0.2) Sodium Level 145 mmol/L (136-145) Potassium Level 4.2 mmol/L (3.5-5.1) Chloride Level 114 mmol/L (98-107) Carbon Dioxide Level 19 mmol/L (21-32) Anion Gap 12 (6-14) Blood Urea Nitrogen 45 mg/dL (8-26) Creatinine 1.7 mg/dL (0.7-1.3) Estimated GFR (Cockcroft-Gault) 39.3 Glucose Level 193 mg/dL (70-99) Calcium Level 7.6 mg/dL (8.5-10.1) Phosphorus Level 4.7 mg/dL (2.6-4.7) Magnesium Level 1.9 mg/dL (1.8-2.4) Triglycerides Level 77 mg/dL (0-150) Glucose (Fingerstick) 162 mg/dL (70-99) 132 mg/dL (70-99) 200 mg/dL (70-99) Test 06/26/19 23:54 06/27/19 05:00 06/27/19 06:14 Glucose (Fingerstick) 200 mg/dL (70-99) 180 mg/dL (70-99) White Blood Count 7.9 x10^3/uL (4.0-11.0) Red Blood Count 1.94 x10^6/uL (4.30-5.70) Hemoglobin 6.3 g/dL (13.0-17.5) Hematocrit 18.9 % (39.0-53.0) Mean Corpuscular Volume 97 fL (79-100) Mean Corpuscular Hemoglobin 32 pg (25-35) Mean Corpuscular Hemoglobin Concent 33 g/dL (31-37) Red Cell Distribution Width 15.5 % (11.5-14.5) Platelet Count 147 x10^3/uL (140-400) Neutrophils (%) (Auto) 72 % (31-73) Lymphocytes (%) (Auto) 19 % (24-48) Monocytes (%) (Auto) 7 % (0-9) Eosinophils (%) (Auto) 1 % (0-3) Basophils (%) (Auto) 1 % (0-3) Neutrophils # (Auto) 5.7 x10^3/uL (1.8-7.7) Lymphocytes # (Auto) 1.5 x10^3/uL (1.0-4.8) Monocytes # (Auto) 0.5 x10^3/uL (0.0-1.1) Eosinophils # (Auto) 0.1 x10^3/uL (0.0-0.7) Basophils # (Auto) 0.1 x10^3/uL (0.0-0.2) Sodium Level 142 mmol/L (136-145) Potassium Level 3.8 mmol/L (3.5-5.1) Chloride Level 111 mmol/L (98-107) Carbon Dioxide Level 18 mmol/L (21-32) Anion Gap 13 (6-14) Blood Urea Nitrogen 58 mg/dL (8-26) Creatinine 2.0 mg/dL (0.7-1.3) Estimated GFR (Cockcroft-Gault) 32.6 BUN/Creatinine Ratio 29 (6-20) Glucose Level 193 mg/dL (70-99) Calcium Level 8.3 mg/dL (8.5-10.1) Phosphorus Level 5.2 mg/dL (2.6-4.7) Magnesium Level 1.8 mg/dL (1.8-2.4) Total Bilirubin 0.3 mg/dL (0.2-1.0) Aspartate Amino Transf (AST/SGOT) 19 U/L (15-37) Alanine Aminotransferase (ALT/SGPT) 14 U/L (16-63) Alkaline Phosphatase 57 U/L (46-116) Total Protein 5.2 g/dL (6.4-8.2) Albumin 2.8 g/dL (3.4-5.0) Albumin/Globulin Ratio 1.2 (1.0-1.7) Laboratory Tests Test 06/26/19 13:28 06/26/19 17:56 06/26/19 21:06 06/26/19 23:54 Glucose (Fingerstick) 162 mg/dL (70-99) 132 mg/dL (70-99) 200 mg/dL (70-99) 200 mg/dL (70-99) Test 06/27/19 05:00 06/27/19 06:14 White Blood Count 7.9 x10^3/uL (4.0-11.0) Red Blood Count 1.94 x10^6/uL (4.30-5.70) Hemoglobin 6.3 g/dL (13.0-17.5) Hematocrit 18.9 % (39.0-53.0) Mean Corpuscular Volume 97 fL (79-100) Mean Corpuscular Hemoglobin 32 pg (25-35) Mean Corpuscular Hemoglobin Concent 33 g/dL (31-37) Red Cell Distribution Width 15.5 % (11.5-14.5) Platelet Count 147 x10^3/uL (140-400) Neutrophils (%) (Auto) 72 % (31-73) Lymphocytes (%) (Auto) 19 % (24-48) Monocytes (%) (Auto) 7 % (0-9) Eosinophils (%) (Auto) 1 % (0-3) Basophils (%) (Auto) 1 % (0-3) Neutrophils # (Auto) 5.7 x10^3/uL (1.8-7.7) Lymphocytes # (Auto) 1.5 x10^3/uL (1.0-4.8) Monocytes # (Auto) 0.5 x10^3/uL (0.0-1.1) Eosinophils # (Auto) 0.1 x10^3/uL (0.0-0.7) Basophils # (Auto) 0.1 x10^3/uL (0.0-0.2) Sodium Level 142 mmol/L (136-145) Potassium Level 3.8 mmol/L (3.5-5.1) Chloride Level 111 mmol/L (98-107) Carbon Dioxide Level 18 mmol/L (21-32) Anion Gap 13 (6-14) Blood Urea Nitrogen 58 mg/dL (8-26) Creatinine 2.0 mg/dL (0.7-1.3) Estimated GFR (Cockcroft-Gault) 32.6 BUN/Creatinine Ratio 29 (6-20) Glucose Level 193 mg/dL (70-99) Calcium Level 8.3 mg/dL (8.5-10.1) Phosphorus Level 5.2 mg/dL (2.6-4.7) Magnesium Level 1.8 mg/dL (1.8-2.4) Total Bilirubin 0.3 mg/dL (0.2-1.0) Aspartate Amino Transf (AST/SGOT) 19 U/L (15-37) Alanine Aminotransferase (ALT/SGPT) 14 U/L (16-63) Alkaline Phosphatase 57 U/L (46-116) Total Protein 5.2 g/dL (6.4-8.2) Albumin 2.8 g/dL (3.4-5.0) Albumin/Globulin Ratio 1.2 (1.0-1.7) Glucose (Fingerstick) 180 mg/dL (70-99) Medications Active Scripts Medications Dose Route/Sig Max Daily Dose Days Date Category Foltx Tablet (B12/Levomefolate Calcium/B-6) 1 Each Tablet 1 Each PO AFTRNOON 06/07/19 Reported Testosterone Cypionate 200 Mg/1 Ml Vial 1 Ml IM Q2WKS 06/07/19 Reported Novolog Mix 70-30 Flexpen Syrn (Insuln Asp Prt/Insulin Aspart) 100 Unit/1 Ml Insuln.pen 1 Unit SQ BIDACBL 06/07/19 Reported Lantus Solostar (Insulin Glargine,Hum.rec.anlog) 100 Unit/1 Ml Insuln.pen 30 Unit SQ QHS 06/07/19 Reported Nifedipine Er (Nifedipine) 60 Mg Tab.er.24 1 Tab PO DAILY 06/07/19 Reported Morphine Sulfate Er (Morphine Sulfate) 60 Mg Tablet.er 1 Tab PO BID 06/07/19 Reported Furosemide 40 Mg Tablet 40 Mg PO DAILY 06/07/19 Reported Finasteride 5 Mg Tablet 1 Tab PO DAILY 06/07/19 Reported Simvastatin 40 Mg Tablet 1 Tab PO QHS 06/07/19 Reported Metoprolol Succinate ( Xl ) (Metoprolol Succinate) 200 Mg Tab.er.24h 1 Tab PO DAILY 06/07/19 Reported Levothyroxine Sodium 175 Mcg Tablet 1 Tab PO DAILY 06/07/19 Reported Losartan-Hctz 100-12.5 Mg Tab (Losartan/Hydrochlorothiazide) 1 Each Tablet 1 Tab PO DAILY 06/07/19 Reported Comments CXR 06/25 reviewed bilateral lower lobe subsegmental atelectasis and/ or infiltrate.ett ok Impression . 1. Acute Respiratory failure, multifactorial, includes septic shock, colonic ileus EXTUBATED 06/25 2. septic shock, resolved. 3. Erosive gastritis./ colonic ileus with recurrent emesis. high risk for aspiration. will not be able to protect his airway post extubation 4. C-Diff 5. Coronary artery disease, status post coronary artery bypass grafting. 6, COLONIC ILEUS 7. abnormal cxr with atelectasis 8. SHOULDER ABSCESS 9. RENATA 10. severe PCM 11. c diff colitis ID NOTE LUE abscess s/p 10 ml removal 06/13. group B strep -S/p Left shoulder open incision and drainage with arthrotomy, debridement of bone and bone cement, and joint irrigation 06/14 G B strep C. diff positive, 06/14 Plan . Nasal canula ultra filtration PER NEPHRO ABG, CXR NOTED ANTI BX PER ID D/W RN D/W speech eval done, clear liquids discussed w rn LTAC LITA Bowden MD Jun 27, 2019 11:07
[2019-06-27] MEDS: TPN PER PHARMACY MC PRN (13:53)
--- NOTE | 2019-06-27 13:54 | NUR ---
Pharmacy TPN Dosing Note S: ROSLYN MOORE is a 78 year old M Currently receiving Central Continuous TPN started 06/15/19 B:Pertinent PMH: Duodenal ulcer, Ileus Height: 6 feet, 0 inches Weight: 108.119530 kg Current diet: CLEARS LABS: Sodium: 142 Potassium: 3.8 Chloride: 111 Calcium: 8.3 Corrected Calcium: 10.46 Magnesium: 1.8 CO2: 18 SCr: 2.0 Glucose: 175-200 Albumin: 1.3 AST: 16 ALT: 7 TPN FORMULA: TPN TYPE: Central Continuous AMINO ACIDS: 110 gm DEXTROSE: 250 gm LIPIDS: 30 gm SODIUM CHLORIDE: - mEq SODIUM ACETATE: 50 mEq SODIUM PHOSPHATE: . mmol POTASSIUM CHLORIDE: . mEq POTASSIUM ACETATE: 10 mEq POTASSIUM PHOSPHATE: 6.8 mmol MAGNESIUM: 10 mEq CALCIUM: 10 mEq INSULIN: . units MULTIPLE VITAMIN: 10 ml TRACE ELEMENTS: 1 ml(s) TPN PLAN: Pt on IHD. Phos high today; reduced kphos by 6.8 mmol (10 meq K); added back 10 meq KAc. No other changes. Labs in AM. R: Continue TPN ABOVE. Will monitor electrolytes, glucose, and tolerance to TPN. AMBER KEENE [facility], 06/27/19 [id number]
--- NOTE | 2019-06-27 14:12 | PDOC ---
Subjective: Subjective: Feels okay. Likes being able to drink water. No abd pain, no n/v. No stool but has flatus. Objective: Objective: Reviewed w/ nurse - tolerating clears, hasn't stooled, no obvious bleeding - Hgb lower today and transfusion ordered along w/ fecal occult. Vital Signs: Vital Signs Date Time Temp Pulse Resp B/P (MAP) Pulse Ox O2 Delivery O2 Flow Rate FiO2 06/27/19 13:00 85 12 137/60 (85) 100 Room Air 06/27/19 12:00 97.8 97.8 06/26/19 17:12 2.0 Labs: Laboratory Tests Test 06/26/19 17:56 06/26/19 21:06 06/26/19 23:54 06/27/19 05:00 Glucose (Fingerstick) 132 mg/dL 200 mg/dL 200 mg/dL White Blood Count 7.9 x10^3/uL Red Blood Count 1.94 x10^6/uL Hemoglobin 6.3 g/dL Hematocrit 18.9 % Mean Corpuscular Volume 97 fL Mean Corpuscular Hemoglobin 32 pg Mean Corpuscular Hemoglobin Concent 33 g/dL Red Cell Distribution Width 15.5 % Platelet Count 147 x10^3/uL Neutrophils (%) (Auto) 72 % Lymphocytes (%) (Auto) 19 % Monocytes (%) (Auto) 7 % Eosinophils (%) (Auto) 1 % Basophils (%) (Auto) 1 % Neutrophils # (Auto) 5.7 x10^3/uL Lymphocytes # (Auto) 1.5 x10^3/uL Monocytes # (Auto) 0.5 x10^3/uL Eosinophils # (Auto) 0.1 x10^3/uL Basophils # (Auto) 0.1 x10^3/uL Sodium Level 142 mmol/L Potassium Level 3.8 mmol/L Chloride Level 111 mmol/L Carbon Dioxide Level 18 mmol/L Anion Gap 13 Blood Urea Nitrogen 58 mg/dL Creatinine 2.0 mg/dL Estimated GFR (Cockcroft-Gault) 32.6 BUN/Creatinine Ratio 29 Glucose Level 193 mg/dL Calcium Level 8.3 mg/dL Phosphorus Level 5.2 mg/dL Magnesium Level 1.8 mg/dL Total Bilirubin 0.3 mg/dL Aspartate Amino Transf (AST/SGOT) 19 U/L Alanine Aminotransferase (ALT/SGPT) 14 U/L Alkaline Phosphatase 57 U/L Total Protein 5.2 g/dL Albumin 2.8 g/dL Albumin/Globulin Ratio 1.2 Test 06/27/19 06:14 06/27/19 11:39 Glucose (Fingerstick) 180 mg/dL 175 mg/dL PE: GEN: NAD LUNGS: room air HEART: RRR ABD: more distended but still soft, large reducible hernia, BS+ NEURO/PSYCH: A & O �3 A/P: LUE abscess, RENATA/CKD, C Diff Erosive esophagitis, duodenal ulcer (path benign) - on EGD 06/08/19 - has been on PPI since admission to [facility] on 06/08 Abnormal abd imaging - colonic and SB dilatation Anemia H/o chronic pain and constipation -- Seems more distended today and hasn't stooled - keep to clears for now. Transfusion ordered - previous iron profile (on admission) c/w ACD and B12 normal. GERALD SMITH Jun 27, 2019 14:12
--- NOTE | 2019-06-27 19:48 | NUR ---
Reassessment of Dilaudid not completed by day shift RN, marked as "not done" by this RN.
[2019-06-27] MEDS: SIMVASTATIN 40 MG TABLET. PO SCH (20:56)
[2019-06-27] MEDS: LACTOBACILLUS RHAMNOSUS GG 1 CAPSULE. PO SCH (20:56)
[2019-06-27] MEDS: INSULIN GLARGINE SYRINGE. SQ SCH (21:00)
[2019-06-27] MEDS ORDERED: DEXTROSE 70% IV SCH ×10 (22:00)
[2019-06-27] MEDS ORDERED: [UNRECOGNIZED DRUG - OTHER] IV SCH ×10 (22:00)
[2019-06-27] MEDS ORDERED: AMINO ACID IV SCH ×10 (22:00)
[2019-06-27] MEDS ORDERED: TOTAL PARENTERAL NUTRITION IV SCH ×10 (22:00)
[2019-06-28] VITALS (10 sets, daily range): BP systolic 115–143; BP diastolic 53–70
[2019-06-28] MEDS: FUROSEMIDE 40 MG/4 ML VIAL. IVP SCH ×3 (00:14→07:55)
--- NOTE | 2019-06-28 00:37 | PN ---
DATE: SUBJECTIVE: The patient is resting slightly propped up in bed, in no apparent distress. He is awake, alert. His NG tube is out. He is now on a clear liquid diet. On questioning him, he continued to complain of aches and pains all over on his legs, his arms, and his left shoulder. He is off the CVVH. OBJECTIVE: GENERAL: When I examined him this morning, he looked pale. No jaundice, cyanosis or thyromegaly. No jugular venous distention. No limb edema. VITAL SIGNS: His heart rate was 85, blood pressure was 174/83, temperature was 98.2, respiratory rate was 12, and oxygen saturation was 100% on room air. HEAD, EYES, EARS, NOSE, AND THROAT: Showed normocephalic, atraumatic. NECK: Supple. He has a hemodialysis catheter in the right internal jugular vein, triple lumen central line on the left internal jugular vein. HEART: Showed normal first and second heart sounds with no gallop or murmur. CHEST: Clear to auscultation. No crepitation or rhonchi. ABDOMEN: Distended, soft, nontender. No guarding or rigidity. No organomegaly. All hernial orifices intact. Bowel sounds normal. NEUROLOGIC: He is awake, alert, responding appropriately. All cranial nerves are intact. He moves his upper extremities to much good extent than lower extremities. He has multiple wounds in his lower back and left leg. His intake over the last 24-hour was 1600, output was 390. LABORATORY DATA: His lab work this morning showed a serum sodium 142, potassium 3.8, chloride 111, bicarbonate 18, anion gap of 13, BUN 58, creatinine 2, estimated GFR was 32 mL per minute. His glucose 193, calcium was 8.3, phosphorus was 5.2, magnesium was 1.8. Total bilirubin, AST, ALT, and alkaline phosphatase were normal. Total protein was 5.2 and albumin was 2.8. His white cell count was 7900, hemoglobin 6.3, hematocrit 18.9, MCV 97, and platelet count of 147,000, with a manual differential showed 72% polymorphs, 19% lymphocytes, and 7% monocytes. His prothrombin time was normal. ASSESSMENT: 1. Left upper extremity abscess, status post aspiration of 10 mL on 06/13/2019, with a growth of group B streptococci, for which he is on IV ceftriaxone. He is also status post left shoulder open incision and drainage, with arthrotomy and debridement of bone and bone cement and joint irrigation on 06/14/2019. 2. He developed post-procedure respiratory failure, for which he was intubated and mechanically ventilated and was successfully extubated. He is now maintaining his oxygen saturation 100% on room air. 3. He developed diarrhea and his Clostridium difficile toxins were positive, for which he continues to be on oral vancomycin through the NG tube as well as IV Flagyl. 4. Hypertension, for which he was on Levophed and vasopressors. Both were discontinued, in fact if anything is hypertensive with a mean arterial pressure of 95 mmHg. 4. PENICILLIN ALLERGY. 5. Leukocytosis, resolved. 6. Calvin syndrome with colonic ileus, followed by the Gastroenterology team. 7. Coronary artery disease, status post coronary artery bypass graft surgery, clinically well compensated. 8. Urinary retention, for which he has an indwelling Bledsoe catheter. 9. Acute on chronic kidney injury, for which he was on continuous renal replacement therapy; however, he is off the CRRT and obviously, he would be a candidate for intermittent hemodialysis if he continues to require hemodialysis. 10. Anemia, with hemoglobin and hematocrit drifted down gradually, as his hemoglobin on admission was 10.7; in fact, it was 11.3 and as of this morning, it drifted down to 6.3 and his hematocrit was 33.6 and down to 18.9. We did type and cross and transfused him 2 units of blood. I will send blood for serum iron, TIBC, and serum ferritin as well as stool for occult blood and decide on further management accordingly. KERI DIGGS MD DR: PAIGE/chastity JOB#: [id number] / [id number]
[2019-06-28] MEDS: HYDROmorphone 2 MG/ML VIAL IV PRN ×2 (03:09→05:28)
[2019-06-28 05:50] LABS: CALCIUM 8.8 mg/dL (8.5-10.1); CREATININE 2.4 mg/dL (0.7-1.3); GFR 26.4; MAGNESIUM 1.7 mg/dL (1.8-2.4); POTASSIUM 3.6 mmol/L (3.5-5.1)
[2019-06-28 05:52] LABS: BASO # 0.1 x10^3/uL (0.0-0.2); BASO % 1 % (0-3); EOS # 0.1 x10^3/uL (0.0-0.7); EOS % 1 % (0-3); HEMATOCRIT 21.9 % (39.0-53.0); HEMOGLOBIN 7.4 g/dL (13.0-17.5); LYMPH # 1.7 x10^3/uL (1.0-4.8); LYMPH % 21 % (24-48); MEAN CORPUSCULAR HEMOGLOBIN 32 pg (25-35); MEAN CORPUSCULAR HGB CONC 34 g/dL (31-37); MEAN CORPUSCULAR VOLUME 95 fL (79-100); MONO # 0.6 x10^3/uL (0.0-1.1); MONO % 7 % (0-9); NEUT # 5.9 x10^3/uL (1.8-7.7); NEUT % 70 % (31-73); PLATELET COUNT 160 x10^3/uL (140-400); RED BLOOD COUNT 2.31 x10^6/uL (4.30-5.70); RED CELL DISTRIBUTION WIDTH 17.5 % (11.5-14.5); WHITE BLOOD COUNT 8.4 x10^3/uL (4.0-11.0)
[2019-06-28] MEDS: INSULIN LISPRO 300 UNITS/3 ML VIAL. SQ SCH ×3 (06:00→12:00)
[2019-06-28] MEDS: LEVOTHYROXINE 175 MCG TABLET PO SCH (06:11)
--- NOTE | 2019-06-28 07:06 | PDOC ---
Infectious Disease Note Subjective: Subjective Pt says feels ok pain is under control tolerating clear liquids No fevers /n/v/abdo pain passes gas no bm ROS: ROS Negative otherwise. Vital Signs: Vital Signs Vital Signs Date Time Temp Pulse Resp B/P (MAP) Pulse Ox O2 Delivery O2 Flow Rate FiO2 06/28/19 06:15 91 16 124/70 (88) 95 Room Air 06/28/19 04:00 98.1 98.1 06/27/19 12:00 2.0 Physical Exam: PHYSICAL EXAM GENERAL Pt alert,weak,comfortable on nasal O2 HEENT: no icterus LUNGS: dec bs at bases HEART: S1, S2. ABDOMEN: Obese, soft + BS. Rectal tube out : Bledsoe. scrotal edema EXTREMITIES: Generalized edema. Left shoulder incision well-approx/thiago, clean LLE bandaged SKIN: Without signs of rash NEUROLOGIC: Awake, calm Temp HDC (06/15) [facility] Medications: Inpatient Meds: Current Medications Medications (Trade) Dose Ordered Sig/Lauren Start Time Stop Time Status Last Admin Dose Admin Albumin Human 100 ml @ 100 mls/hr Q12HR 06/26/19 10:35 06/27/19 21:01 100 MLS/HR Amino Acids/ Electrolytes/ Dextrose 1,000 ml @ 80 mls/hr [id number] 06/14/19 10:30 06/15/19 21:59 DC 06/15/19 16:23 80 MLS/HR Bisacodyl (Dulcolax Supp) 10 mg 1X ONCE 06/07/19 17:45 06/07/19 17:46 DC 06/07/19 21:40 10 MG Bisacodyl (Dulcolax Tab) 5 mg PRN DAILY PRN 06/11/19 15:45 06/20/19 11:31 DC Bupivacaine HCl/ Epinephrine Bitart (Sensorcaine-Epi 0.25%-1:[id number] Mpf) 30 ml 1X ONCE 06/14/19 17:45 06/14/19 17:46 Cancel Ceftriaxone Sodium (Rocephin) 2 gm Q24H 06/19/19 09:00 06/27/19 11:51 2 GM Clindamycin Phosphate 50 ml @ As Directed STK-MED ONCE 06/14/19 18:07 06/14/19 18:07 DC Daptomycin 560 mg/ Sodium Chloride 50 ml @ 100 mls/hr Q48H 06/15/19 14:00 06/18/19 07:56 DC 06/17/19 14:29 100 MLS/HR Dexamethasone Sodium Phosphate (Decadron) 4 mg STK-MED ONCE 06/14/19 16:17 06/14/19 16:17 DC Dexmedetomidine HCl 400 mcg/ Sodium Chloride 100 ml @ 5.58 mls/hr CONT PRN 06/20/19 16:15 06/25/19 03:45 5.58 MLS/HR Dextrose (Dextrose 50%-Water Syringe) 25 gm 1X ONCE 06/24/19 11:45 06/24/19 11:46 DC Diclofenac Sodium (Voltaren) 1 clare BID 06/25/19 15:30 06/27/19 21:01 1 CLARE Diphenhydramine HCl (Benadryl) 25 mg 1X PRN PRN 06/20/19 07:30 06/21/19 07:29 DC Ephedrine Sulfate (ePHEDrine PF IN SALINE SYRINGE) 50 mg STK-MED ONCE 06/14/19 19:21 06/14/19 19:21 DC Famotidine (Pepcid Vial) 20 mg STK-MED ONCE 06/14/19 16:17 06/14/19 16:17 DC Fentanyl (Duragesic 50mcg/ Hr Patch) 1 patch Q3DAYS 06/25/19 12:00 06/25/19 12:10 1 PATCH Fentanyl Citrate (Fentanyl 2ml Vial) 50 mcg PRN Q1HR PRN 06/20/19 16:15 06/25/19 13:52 DC 06/25/19 12:10 50 MCG Finasteride (Proscar) 5 mg DAILY 06/12/19 12:00 06/13/19 09:39 DC Furosemide (Lasix) 40 mg Q6HRS 06/26/19 18:00 06/28/19 06:11 40 MG Heparin Sodium (Porcine) (Heparin Sodium) 5,000 unit BID 06/24/19 09:00 06/27/19 21:01 5,000 UNIT Hydromorphone HCl (Dilaudid) 2 mg PRN Q2HRS PRN 06/25/19 19:00 06/28/19 05:28 2 MG Info (PHARMACY MONITORING -- do not chart) 1 each PRN DAILY PRN 06/20/19 07:30 Info (Tpn Per Pharmacy) 1 each PRN DAILY PRN 06/15/19 11:30 06/27/19 13:53 1 EACH Insulin Glargine (Lantus Syringe) 30 unit QHS 06/08/19 21:00 06/27/19 21:01 30 UNIT Insulin Human Lispro (HumaLOG) 0-9 UNITS Q6HRS 06/16/19 12:00 06/27/19 18:12 4 UNITS Ketamine HCl (Ketamine) 50 mg STK-MED ONCE 06/14/19 17:03 06/14/19 17:03 DC Lactobacillus Rhamnosus (Culturelle) 1 cap BID 06/27/19 21:00 06/27/19 21:01 1 CAP Levothyroxine Sodium (Synthroid) 175 mcg DAILY06 06/08/19 12:00 06/28/19 06:11 175 MCG Lidocaine HCl (Lidocaine Pf 2% Vial) 5 ml STK-MED ONCE 06/14/19 16:17 06/14/19 16:17 DC Lidocaine/Sodium Bicarbonate (Buffered Lidocaine 1%) 3 ml 1X ONCE 06/15/19 11:00 06/15/19 11:01 DC Lorazepam (Ativan) 0.5 mg PRN Q6HRS PRN 06/07/19 18:00 06/07/19 18:14 DC Losartan Potassium (Cozaar) 100 mg DAILY 06/08/19 12:00 06/14/19 13:01 DC 06/12/19 08:36 100 MG Magnesium Sulfate 50 ml @ 25 mls/hr 1X ONCE 06/16/19 08:30 06/16/19 10:29 DC 06/16/19 08:27 25 MLS/HR Meropenem 1 gm/ Sodium Chloride 100 ml @ 200 mls/hr DAILY 06/15/19 09:00 06/19/19 07:22 DC 06/18/19 10:55 200 MLS/HR Methylnaltrexone Mclain (Relistor) 6 mg 1X ONCE 06/14/19 14:00 06/14/19 14:01 DC 06/14/19 14:15 6 MG Metoprolol Succinate (Toprol Xl) 200 mg DAILY 06/08/19 12:00 06/14/19 13:01 DC 06/12/19 08:36 200 MG Metronidazole 100 ml @ 100 mls/hr Q8HRS 06/24/19 09:00 06/27/19 07:55 DC 06/27/19 06:06 100 MLS/HR Midazolam HCl (Versed) 2 mg PRN Q6HRS PRN 06/22/19 13:30 06/25/19 03:45 2 MG Morphine Sulfate (Ms Contin) 60 mg BID 06/08/19 12:00 06/27/19 21:01 60 MG Nicotine (Nicoderm Cq 21mg) 1 patch PRN DAILY PRN 06/07/19 18:00 06/07/19 18:14 DC Nifedipine (Procardia Xl) 60 mg DAILY 06/08/19 12:00 06/14/19 13:01 DC 06/12/19 08:36 60 MG Non-Formulary Medication (Insuln Asp Prt/ Insulin Aspart (Novolog Mix 70-30 Flexpen Syrn)) 1 unit BIDACBL 06/08/19 11:30 06/08/19 19:34 DC Norepinephrine Bitartrate 250 ml @ 17.398 mls/ hr CONT PRN 06/14/19 14:30 06/18/19 17:55 34.796 MLS/HR Ondansetron HCl (Zofran) 4 mg STK-MED ONCE 06/14/19 16:17 06/14/19 16:17 DC Pantoprazole Sodium (PROTONIX VIAL for IV PUSH) 40 mg DAILYAC 06/14/19 07:30 06/27/19 10:02 40 MG Pantoprazole Sodium (Protonix) 40 mg DAILYAC 06/12/19 07:30 06/13/19 13:27 DC 06/12/19 08:36 40 MG Phenylephrine HCl (PHENYLEPHRINE in 0.9% NACL PF) 1 mg STK-MED ONCE 06/14/19 17:03 06/14/19 17:04 DC Polyethylene Glycol (miraLAX PACKET) 17 gm PRN DAILY PRN 06/11/19 15:45 06/20/19 11:31 DC Potassium Chloride 15 meq/ Bicarbonate Dialysis Soln w/ out KCl 5,007.5 ml @ 1,500 mls/ hr Q3H21M 06/22/19 08:00 06/23/19 14:20 DC 06/23/19 12:05 1,500 MLS/HR Potassium Chloride 20 meq/ Bicarbonate Dialysis Soln w/ out KCl 5,010 ml @ 1,500 mls/hr Q3H21M 06/20/19 18:00 06/22/19 11:00 DC 06/22/19 10:55 1,500 MLS/HR Propofol 100 ml @ 0 mls/hr CONT PRN 06/14/19 20:00 06/25/19 11:53 DC 06/15/19 10:33 8.351 MLS/HR Ringer's Solution 1,000 ml @ 75 mls/hr [id number] 06/08/19 09:15 06/09/19 08:01 DC 06/08/19 14:01 75 MLS/HR Rocuronium Mclain (Zemuron) 50 mg STK-MED ONCE 06/14/19 16:32 06/14/19 16:32 DC Simvastatin (Zocor) 40 mg QHS 06/08/19 21:00 06/27/19 21:01 40 MG Sodium Bicarbonate 50 meq/Sodium Chloride 1,050 ml @ 125 mls/hr Q8H24M 06/15/19 10:15 06/16/19 18:21 DC 06/16/19 09:26 125 MLS/HR Sodium Acetate 50 meq/Potassium Acetate 10 meq/ Potassium Phosphate 6.8 mmol/Magnesium Sulfate 10 meq/ Calcium Gluconate 10 meq/ Multivitamins 10 ml/Chromium/ Copper/Manganese/ Seleni/Zn 1 ml/ Total Parenteral Nutrition/Amino Acids/Dextrose/ Fat Emulsion Intravenous 1,300 ml @ 54.167 mls/ hr TPN CONT 06/27/19 22:00 06/28/19 21:59 06/27/19 22:14 54.167 MLS/HR Sodium Acetate 50 meq/Potassium Phosphate 13.6 mmol/Magnesium Sulfate 10 meq/ Calcium Gluconate 10 meq/ Multivitamins 10 ml/Chromium/ Copper/Manganese/ Seleni/Zn 1 ml/ Total Parenteral Nutrition/Amino Acids/Dextrose/ Fat Emulsion Intravenous 1,300 ml @ 54.167 mls/ hr TPN CONT 06/26/19 22:00 06/27/19 21:59 DC 06/26/19 23:26 54.167 MLS/HR Sodium Chloride 50 meq/Sodium Acetate 50 meq/ Potassium Phosphate 20.4 mmol/Magnesium Sulfate 10 meq/ Calcium Gluconate 10 meq/ Multivitamins 10 ml/Chromium/ Copper/Manganese/ Seleni/Zn 1 ml/ Total Parenteral Nutrition/Amino Acids/Dextrose/ Fat Emulsion Intravenous 1,300 ml @ 54.167 mls/ hr TPN CONT 06/25/19 22:00 06/26/19 21:59 DC 06/25/19 22:18 54.167 MLS/HR Sodium Chloride 90 meq/Potassium Chloride 50 meq/ Magnesium Sulfate 10 meq/Calcium Gluconate 10 meq/ Multivitamins 10 ml/Chromium/ Copper/Manganese/ Seleni/Zn 1 ml/ Total Parenteral Nutrition/Amino Acids/Dextrose 1,512 ml @ 63 mls/hr TPN CONT 06/15/19 22:00 06/16/19 21:59 DC 06/16/19 00:19 63 MLS/HR Sodium Chloride 90 meq/Potassium Chloride 50 meq/ Magnesium Sulfate 10 meq/Calcium Gluconate 10 meq/ Multivitamins 10 ml/Chromium/ Copper/Manganese/ Seleni/Zn 1 ml/ Total Parenteral Nutrition/Amino Acids/Dextrose/ Fat Emulsion Intravenous 1,512 ml @ 63 mls/hr TPN CONT 06/16/19 22:00 06/17/19 21:59 DC 06/16/19 22:43 63 MLS/HR Sodium Chloride 90 meq/Potassium Chloride 50 meq/ Potassium Phosphate 13.6 mmol/Magnesium Sulfate 10 meq/ Calcium Gluconate 10 meq/ Multivitamins 10 ml/Chromium/ Copper/Manganese/ Seleni/Zn 1 ml/ Total Parenteral Nutrition/Amino Acids/Dextrose/ Fat Emulsion Intravenous 1,512 ml @ 63 mls/hr TPN CONT 06/17/19 22:00 06/18/19 21:59 DC 06/17/19 21:48 63 MLS/HR Sodium Chloride 90 meq/Potassium Chloride 70 meq/ Potassium Phosphate 13.6 mmol/Magnesium Sulfate 10 meq/ Calcium Gluconate 10 meq/ Multivitamins 10 ml/Chromium/ Copper/Manganese/ Seleni/Zn 1 ml/ Total Parenteral Nutrition/Amino Acids/Dextrose/ Fat Emulsion Intravenous 1,512 ml @ 63 mls/hr TPN CONT 06/18/19 22:00 06/19/19 21:59 DC 06/18/19 22:59 63 MLS/HR Sodium Chloride 90 meq/Potassium Chloride 85 meq/ Potassium Phosphate 13.6 mmol/Magnesium Sulfate 10 meq/ Calcium Gluconate 10 meq/ Multivitamins 10 ml/Chromium/ Copper/Manganese/ Seleni/Zn 1 ml/ Insulin Human Regular 10 unit/ Total Parenteral Nutrition/Amino Acids/Dextrose/ Fat Emuls... 1,512 ml @ 63 mls/hr TPN CONT 06/19/19 22:00 06/20/19 21:59 DC 06/19/19 22:27 63 MLS/HR Sodium Chloride 100 meq/Potassium Chloride 95 meq/ Potassium Phosphate 13.6 mmol/Magnesium Sulfate 10 meq/ Calcium Gluconate 10 meq/ Multivitamins 10 ml/Chromium/ Copper/Manganese/ Seleni/Zn 1 ml/ Insulin Human Regular 10 unit/ Total Parenteral Nutrition/Amino Acids/Dextrose/ Fat Emuls... 1,512 ml @ 63 mls/hr TPN CONT 06/20/19 22:00 06/21/19 21:59 DC 06/20/19 21:54 63 MLS/HR Sodium Chloride 100 meq/Potassium Chloride 95 meq/ Potassium Phosphate 20.4 mmol/Magnesium Sulfate 10 meq/ Calcium Gluconate 10 meq/ Multivitamins 10 ml/Chromium/ Copper/Manganese/ Seleni/Zn 1 ml/ Insulin Human Regular 10 unit/ Total Parenteral Nutrition/Amino Acids/Dextrose/ Fat Emuls... 1,300 ml @ 54.167 mls/ hr TPN CONT 06/21/19 22:00 06/22/19 21:59 DC 06/21/19 22:12 54.167 MLS/HR Sodium Chloride 100 meq/Potassium Phosphate 20.4 mmol/Magnesium Sulfate 10 meq/ Calcium Gluconate 10 meq/ Multivitamins 10 ml/Chromium/ Copper/Manganese/ Seleni/Zn 1 ml/ Insulin Human Regular 10 unit/ Total Parenteral Nutrition/Amino Acids/Dextrose/ Fat Emulsion Intravenous 1,300 ml @ 54.167 mls/ hr TPN CONT 06/23/19 22:00 06/24/19 21:59 DC 06/23/19 21:35 54.167 MLS/HR Sodium Chloride 100 meq/Potassium Phosphate 20.4 mmol/Magnesium Sulfate 10 meq/ Calcium Gluconate 10 meq/ Multivitamins 10 ml/Chromium/ Copper/Manganese/ Seleni/Zn 1 ml/ Total Parenteral Nutrition/Amino Acids/Dextrose/ Fat Emulsion Intravenous 1,300 ml @ 54.167 mls/ hr TPN CONT 06/24/19 22:00 06/25/19 21:59 DC 06/24/19 21:21 54.167 MLS/HR Sodium Chloride 100 meq/Sodium Phosphate 10 mmol/ Potassium Chloride 95 meq/ Potassium Phosphate 20.4 mmol/Magnesium Sulfate 10 meq/ Calcium Gluconate 2 meq/ Multivitamins 10 ml/Chromium/ Copper/Manganese/ Seleni/Zn 1 ml/ Insulin Human Regular 10 unit/ Total Parenteral Nutrition/Am... 1,300 ml @ 54.167 mls/ hr TPN CONT 06/22/19 22:00 06/23/19 21:59 DC 06/22/19 21:50 54.167 MLS/HR Sodium Chloride 100 meq/Sodium Phosphate 20 mmol/ Potassium Chloride 95 meq/ Potassium Phosphate 20.4 mmol/Magnesium Sulfate 10 meq/ Multivitamins 10 ml/Chromium/ Copper/Manganese/ Seleni/Zn 1 ml/ Insulin Human Regular 10 unit/ Total Parenteral Nutrition/Amino Acids/Dextrose/ Fat Emuls... 1,300 ml @ 54.167 mls/ hr TPN CONT 06/23/19 22:00 06/23/19 12:26 DC Sodium Phosphate 20 mmol/Dextrose 256.6667 ml @ 64.153 m... 1X ONCE 06/23/19 09:00 06/23/19 13:00 DC 06/23/19 09:04 64.153 MLS/HR Succinylcholine Chloride (Anectine) 200 mg STK-MED ONCE 06/14/19 16:17 06/14/19 16:17 DC Tamsulosin HCl (Flomax) 0.4 mg QHS 06/12/19 21:00 06/14/19 13:01 DC 06/12/19 21:26 0.4 MG Testosterone Cypionate (Depo-Testosterone) 200 mg Q2WKS 06/22/19 09:00 Vancomycin HCl (Vancomycin Oral Solution) 125 mg [id number] 06/16/19 09:00 06/27/19 21:01 125 MG Vasopressin 40 unit/Dextrose 102 ml @ 6 mls/hr CONT PRN 06/15/19 14:30 06/23/19 05:07 6 MLS/HR Vitamin B Complex (Bud B) 1 tab DAILY 06/08/19 12:00 06/27/19 10:02 1 TAB Labs: Lab Laboratory Tests Test 06/27/19 11:39 9/11/19 18:10 06/27/19 20:54 06/28/19 00:12 Glucose (Fingerstick) 175 mg/dL (70-99) 156 mg/dL (70-99) 118 mg/dL (70-99) 112 mg/dL (70-99) Test 06/28/19 05:20 06/28/19 06:10 White Blood Count 8.4 x10^3/uL (4.0-11.0) Red Blood Count 2.31 x10^6/uL (4.30-5.70) Hemoglobin 7.4 g/dL (13.0-17.5) Hematocrit 21.9 % (39.0-53.0) Mean Corpuscular Volume 95 fL (79-100) Mean Corpuscular Hemoglobin 32 pg (25-35) Mean Corpuscular Hemoglobin Concent 34 g/dL (31-37) Red Cell Distribution Width 17.5 % (11.5-14.5) Platelet Count 160 x10^3/uL (140-400) Neutrophils (%) (Auto) 70 % (31-73) Lymphocytes (%) (Auto) 21 % (24-48) Monocytes (%) (Auto) 7 % (0-9) Eosinophils (%) (Auto) 1 % (0-3) Basophils (%) (Auto) 1 % (0-3) Neutrophils # (Auto) 5.9 x10^3/uL (1.8-7.7) Lymphocytes # (Auto) 1.7 x10^3/uL (1.0-4.8) Monocytes # (Auto) 0.6 x10^3/uL (0.0-1.1) Eosinophils # (Auto) 0.1 x10^3/uL (0.0-0.7) Basophils # (Auto) 0.1 x10^3/uL (0.0-0.2) Sodium Level 140 mmol/L (136-145) Potassium Level 3.6 mmol/L (3.5-5.1) Chloride Level 108 mmol/L (98-107) Carbon Dioxide Level 20 mmol/L (21-32) Anion Gap 12 (6-14) Blood Urea Nitrogen 70 mg/dL (8-26) Creatinine 2.4 mg/dL (0.7-1.3) Estimated GFR (Cockcroft-Gault) 26.4 Glucose Level 106 mg/dL (70-99) Calcium Level 8.8 mg/dL (8.5-10.1) Magnesium Level 1.7 mg/dL (1.8-2.4) Iron Level 63 ug/dL (65-175) Total Iron Binding Capacity 100 ug/dL (250-450) Iron Saturation 63 % (15-34) Ferritin 155 ng/mL (26-388) Glucose (Fingerstick) 96 mg/dL (70-99) Objective: Assessment: LUE abscess s/p removal 06/13. group B strep -S/p Left shoulder open incision and drainage with arthrotomy, debridement of bone and bone cement, and joint irrigation 06/14 G B strep C. diff positive, 06/14 PCN allergy - Hives - believes has tolerated Cephalosporins per his RENATA requiring HD, Post op resp failure - intubated - Pulm following Leukocytosis - resolved thrombocytopenia hematology following ? White syndrome - GI following CAD - Cardiology following H/o MRSA H/o Group B strep sepsis Erosive Gastritis s/p EGD 06/08 Urinary retention - Bledsoe placed 06/12 Fractures of 2 superior mediastinal wires Plan: Plan of Care Rocephin and PO vanc off IV Flagyl 06/27 Monitor labs/temp Contact isolation Prognosis poor D/W nursing BLU PEACE MD Jun 28, 2019 07:06
[2019-06-28] MEDS: PANTOPRAZOLE IV PUSH 40 MG VIAL. IVP SCH (07:55)
[2019-06-28] MEDS: MORPHINE ER 30 MG TABLET.ER PO SCH (07:57)
[2019-06-28] MEDS: LACTOBACILLUS RHAMNOSUS GG 1 CAPSULE. PO SCH (07:57)
[2019-06-28] MEDS: FINASTERIDE 5 MG TABLET. PO SCH (07:57)
[2019-06-28] MEDS: VITAMIN B COMPLEX TABLET. PO SCH (07:57)
[2019-06-28] MEDS: cefTRIAXone IV Push 2 GM VIAL. IVP SCH (07:58)
[2019-06-28] MEDS: DICLOFENAC SODIUM 1% TOPICAL GEL 100GM TUBE. TP SCH (07:59)
[2019-06-28] MEDS: VANCOMYCIN 125 MG/2.5 ML ORAL SOLUTION. PO SCH ×2 (08:19→12:56)
[2019-06-28] MEDS: ALBUMIN HUMAN 25% 100 ML IV SCH (08:19)
[2019-06-28] MEDS: HEPARIN for SUB-Q USE 5,000 UNIT/ML VIAL. SQ SCH (08:25)
[2019-06-28] MEDS: fentaNYL 50MCG/HR PATCH 1 PATCH PATCH.TD72 TD SCH (09:48)
--- NOTE | 2019-06-28 11:00 | PDOC ---
Renal-Progress Notes Subjective Notes Notes MUCH MORE AWAKE AND ALERT Vitals Vitals Vital Signs Date Time Temp Pulse Resp B/P (MAP) Pulse Ox O2 Delivery O2 Flow Rate FiO2 06/28/19 09:48 95 Room Air 2.0 06/28/19 06:15 91 16 124/70 (88) 06/28/19 04:00 98.1 98.1 Weight Weight [ ] I.O. Intake and Output Intake and Output 06/28/19 06:59 Intake Total 2943 ml Output Total 3270 ml Balance -327 ml Intake Oral 945 ml IV Total 1258 ml Blood Product IV Normal Saline Flush 740 ml Output Urine Total 3270 ml Labs Labs Laboratory Tests Test 06/27/19 11:39 06/27/19 18:10 06/27/19 20:54 06/28/19 00:12 Glucose (Fingerstick) 175 mg/dL (70-99) 156 mg/dL (70-99) 118 mg/dL (70-99) 112 mg/dL (70-99) Test 06/28/19 05:20 06/28/19 06:10 White Blood Count 8.4 x10^3/uL (4.0-11.0) Red Blood Count 2.31 x10^6/uL (4.30-5.70) Hemoglobin 7.4 g/dL (13.0-17.5) Hematocrit 21.9 % (39.0-53.0) Mean Corpuscular Volume 95 fL (79-100) Mean Corpuscular Hemoglobin 32 pg (25-35) Mean Corpuscular Hemoglobin Concent 34 g/dL (31-37) Red Cell Distribution Width 17.5 % (11.5-14.5) Platelet Count 160 x10^3/uL (140-400) Neutrophils (%) (Auto) 70 % (31-73) Lymphocytes (%) (Auto) 21 % (24-48) Monocytes (%) (Auto) 7 % (0-9) Eosinophils (%) (Auto) 1 % (0-3) Basophils (%) (Auto) 1 % (0-3) Neutrophils # (Auto) 5.9 x10^3/uL (1.8-7.7) Lymphocytes # (Auto) 1.7 x10^3/uL (1.0-4.8) Monocytes # (Auto) 0.6 x10^3/uL (0.0-1.1) Eosinophils # (Auto) 0.1 x10^3/uL (0.0-0.7) Basophils # (Auto) 0.1 x10^3/uL (0.0-0.2) Sodium Level 140 mmol/L (136-145) Potassium Level 3.6 mmol/L (3.5-5.1) Chloride Level 108 mmol/L (98-107) Carbon Dioxide Level 20 mmol/L (21-32) Anion Gap 12 (6-14) Blood Urea Nitrogen 70 mg/dL (8-26) Creatinine 2.4 mg/dL (0.7-1.3) Estimated GFR (Cockcroft-Gault) 26.4 Glucose Level 106 mg/dL (70-99) Calcium Level 8.8 mg/dL (8.5-10.1) Magnesium Level 1.7 mg/dL (1.8-2.4) Iron Level 63 ug/dL (65-175) Total Iron Binding Capacity 100 ug/dL (250-450) Iron Saturation 63 % (15-34) Ferritin 155 ng/mL (26-388) Glucose (Fingerstick) 96 mg/dL (70-99) Micro Micro Microbiology 06/21/19 - Final, Complete 06/21/19 - Final, Complete 06/21/19 - Final, Complete 06/21/19 Gram Stain Evaluation - Final, Complete 06/21/19 Sputum Culture - Final, Complete 06/21/19 Sputum Result 1 - Final, Complete 06/14/19 AFB Specimen Processing Tissue - Final, Resulted 06/14/19 Acid Fast Bacilli Culture, Resulted Pending 06/14/19 Gram Stain - Final, Resulted 06/14/19 Fungal Culture - Preliminary, Resulted 06/14/19 Fungal Culture Result 1 - Preliminary, Resulted 06/13/19 Blood Culture - Final, Complete NO GROWTH AFTER 5 DAYS Review of Systems Constitutional: yes: weakness, alert Ears/Nose/Throat: Yes: no symptom reported Eyes: Yes: no symptom reported Pulmonary: Yes dyspnea Cardiovascular: Yes edema Gastrointestional: Yes: constipation Genitourinary: Yes: no symptom reported Musculoskeletal: Yes: muscle stiffness Skin: Yes bruising Psychiatric/Neurological: Yes: no symptom reported Endocrine: Yes: no symptom reported Physical Exam General Appearance: moderate distress Skin: warm Respiratory: decreased breath sounds Heart: S1S2 Abdomen: soft, bowel sounds present Genitourinary: bladder flat Extremities: pulses present, no edema, atrophy Neurology: alert, oriented, other (SEDATED) Musculoskeletal: Other Assessment Assessment IMP [id number] WITH CR UP TO 2.4 MET ACIDOSIS CKD STAGE 3-CR PROB ABOUT 1.5 SEPSIS HYPOTENSION URINARY RETENTION LEFT SHOULDER ABSCESS S/P DRAINAGE AND ARTHROTOMY LEFT SHOULDER GASTRITIS SEVERE ANEMIA LEUCOCYTOSIS BPH RESP FAILURE-S.P EXTUBATION PLAN S/P PRBC OFF ALL HIS ANTIHYPERTENSIVES AND DIURETICS ALSO OFF HIS FLOMAX FOR NOW DUE TO HYPOTENSION ANTIBIOTICS ORTHOPEDIC EVAL OFF IVF'S TPN ALBUMIN AND LASIX SCHEDULED OFF SCUF MAINTAIN HD CATHETER STILL HAS LOTS OF EDEMA WILL FOLLOW D/W DR RAMIREZ POSSIBLE SELECT TRANSFER UPDATED DEREJE VOGEL MD Jun 28, 2019 11:00
--- NOTE | 2019-06-28 11:18 | SNU/HH DC ---
DISCHARGE ORDERS DISCHARGE INFORMATION: DISCHARGE DATE: Jun 28, 2019 FINAL DIAGNOSIS Problems Medical Problems: (1) RENATA (acute kidney injury) Status: Acute (2) ATN (acute tubular necrosis) Status: Acute (3) CAD (coronary artery disease) Status: Chronic (4) CKD (chronic kidney disease), stage III Status: Chronic (5) Hypokalemia Status: Acute (6) Hypotension Status: Acute (7) Postoperative respiratory failure Status: Acute CONDITION ON DISCHARGE: Stable CODE STATUS: Code Status: DNR/DNI ASSISTED: SNF STAY <30 DAYS: Yes POST DISCHARGE ORDERS: ACTIVITY ORDERS: Activity as tolerated DIET AFTER DISCHARGE: ADA TREATMENT/EQUIPMENT ORDERS: INFUSION EQUIPMENT NEEDED: PICC Line Occupational Therapy For: Evaluation/Treatment Speech Language Pathology For: Evaluation/Treatment DISCHARGE MEDICATIONS: Home Meds Reported Medications B12/Levomefolate Calcium/B-6 (FOLTX TABLET) 1 Each Tablet, 1 EACH PO AFTRNOON for Supplement, TAB 06/07/19 Testosterone Cypionate (TESTOSTERONE CYPIONATE) 200 Mg/1 Ml Vial, 1 ML IM Q2WKS for Hormones, #10 ML 1 Refill 06/07/19 Insuln Asp Prt/Insulin Aspart (NOVOLOG MIX 70-30 FLEXPEN SYRN) 100 Unit/1 Ml Insuln.pen, 1 UNIT SQ BIDACBL for DM, SYR 06/07/19 Insulin Glargine,Hum.rec.anlog (LANTUS SOLOSTAR) 100 Unit/1 Ml Insuln.pen, 30 UNIT SQ QHS for DM, #15 ML 3 Refills 06/07/19 Nifedipine (NIFEDIPINE ER) 60 Mg Tab.er.24, 1 TAB PO DAILY for HTN, #30 TAB 5 Refills 06/07/19 Morphine Sulfate (MORPHINE SULFATE ER) 60 Mg Tablet.er, 1 TAB PO BID for Pain, #60 TAB 06/07/19 Furosemide (FUROSEMIDE) 40 Mg Tablet, 40 MG PO DAILY for FVO, TAB 06/07/19 Finasteride (FINASTERIDE) 5 Mg Tablet, 1 TAB PO DAILY for Prostate, #30 TAB 11 Refills 06/07/19 Simvastatin (SIMVASTATIN) 40 Mg Tablet, 1 TAB PO QHS for HLD, #30 TAB 5 Refills 06/07/19 Metoprolol Succinate (METOPROLOL SUCCINATE ( XL )) 200 Mg Tab.er.24h, 1 TAB PO DAILY for HTN, #30 TAB 5 Refills 06/07/19 Levothyroxine Sodium (LEVOTHYROXINE SODIUM) 175 Mcg Tablet, 1 TAB PO DAILY for Hypothyroidism, #30 TAB 5 Refills 06/07/19 Losartan/Hydrochlorothiazide (LOSARTAN-HCTZ 100-12.5 MG TAB) 1 Each Tablet, 1 TAB PO DAILY for HTN, #30 TAB 5 Refills 06/07/19 KERI DIGGS MD Jun 28, 2019 11:18
[2019-06-28] MEDS ORDERED: MAGNESIUM SULFATE 1GM 100 ML IV ONE (11:30)
--- NOTE | 2019-06-28 12:08 | NUR ---
SS following up with discharge planning. Discharge orders received for [facility], ; fax [phone]. SS phoned and faxed discharge orders to [facility]. Pt will discharge today and go to [facility] at 1500 via [facility] ambulance, . Pt, pt's spouse, and pt's RN notified.
--- NOTE | 2019-06-28 12:22 | PN ---
DATE: 06/28/2019 SUBJECTIVE: The patient is resting, slightly propped up in bed, in no apparent distress, awake, alert, continued to complain of pain in his left shoulder and generalized aches and pains, has had no bowel movement for the last 3 days, although he passed gas. His urine output has increased. He now has almost 100 mL per hour, although he is on Lasix 40 mg 4 times a day together with human albumin twice a day. PHYSICAL EXAMINATION: GENERAL: When I examined him this morning, he looked pale, but no jaundice, cyanosis or thyromegaly. No jugular venous distention. No limb edema. VITAL SIGNS: His heart rate was 71, blood pressure was 124/70, temperature was 98.1, respiratory rate was 16, and oxygen saturation was 95%. HEAD, EYES, EARS, NOSE AND THROAT: Showed normocephalic, atraumatic. NECK: Supple, with double lumen catheter in the right internal jugular vein and triple lumen catheter in the left internal jugular vein. HEART: Showed normal first and second heart sounds. No gallop or murmur. CHEST: Clear to auscultation. No crepitation or rhonchi. ABDOMEN: Distended, soft, nontender. No guarding or rigidity. No organomegaly. All hernial orifices intact. Bowel sounds normal. NEUROLOGIC: He was awake, alert, responding appropriately. All cranial nerves intact. He moves his right upper extremity much greater than left upper extremity. He is mostly bedbound, chair bound. His intake over the last 24 hours was 2577, output was 2000. LABORATORY DATA: As of this morning showed a white cell count of 8000, hemoglobin was 7.4, hematocrit 22, MCV was 95, and platelet count of 160,000 with normal manual differential. His chemistry showed a serum sodium 140, potassium 3.6, chloride 108, bicarbonate 20, anion gap of 12, BUN 70, creatinine 2.4, estimated GFR was 26 mL per minute. His glucose was 106, calcium was 8.8, magnesium 1.7. His serum iron was 63, TIBC was extremely low at 100 and iron saturation was 63%, his serum ferritin was 155. ASSESSMENT: 1. Left upper extremity abscess, status post aspiration of 10 mL on 06/13/2019 with growth of group B Streptococcus, which he is on IV ceftriaxone. He is also status post left shoulder open incision and drainage with arthrotomy and debridement of bone and bone cement and joint irrigation on 06/14/2019. 2. He developed post-procedure respiratory failure for which he was intubated and mechanically ventilated; however, he was successfully extubated. He is now maintaining his oxygen saturation 100% on room air. 3. He developed diarrhea and his Clostridium difficile toxins were positive for which he was on oral vancomycin as well as IV Flagyl. 4. Hypotension for which he was on Levophed and vasopressors. Both were discontinued. In fact, if anything, his blood pressure is high with a mean arterial pressure of 95 mmHg. 5. PENICILLIN Allergy. 6. Leukocytosis, resolved. 7. [place] syndrome with colonic ileus followed by the Gastroenterology team. 8. Coronary artery disease, status post coronary artery bypass graft surgery, clinically well compensated. 9. Urinary retention for which he has an indwelling Bledsoe catheter. 10. Acute on chronic kidney injury for which he was on continuous renal replacement therapy. He is now off CRRT, currently on IV Lasix 40 mg every 6 hours as well as human albumin twice a day. So far, there is no urgent indication for hemodialysis. 11. Anemia with hemoglobin and hematocrit drifted down gradually from admission of 11.3 and 33.6 down to 6.3 and 18.3 for which he received 1 unit of packed RBCs. 12. His serum iron profile is consistent with anemia of chronic disease. PLAN: Obviously to continue with antibiotic. Continue with oral vancomycin for C. diff colitis. Continue nutritional support. Advance diet as tolerated. If the patient was accepted at [facility], we will transfer him there today or tomorrow. KERI DIGGS MD DR: PAIGE/chastity JOB#: [id number] / [id number]
--- NOTE | 2019-06-28 12:27 | PDOC ---
Subjective: Subjective: Feels better. +flatus - "lots" Tolerating clear liquids w/o n/v or abd pain. No stools since the weekend. Objective: Objective: Reviewed w/ nurse and pharmacy - plans to transfer to [facility] this afternoon and continue TPN w/ clears. Vital Signs: Vital Signs Date Time Temp Pulse Resp B/P (MAP) Pulse Ox O2 Delivery O2 Flow Rate FiO2 06/28/19 10:00 88 15 127/64 (85) 100 Room Air 06/28/19 09:48 2.0 06/28/19 08:00 97.8 97.8 Labs: Laboratory Tests Test 06/27/19 18:10 06/27/19 20:54 06/28/19 00:12 06/28/19 05:20 Glucose (Fingerstick) 156 mg/dL 118 mg/dL 112 mg/dL White Blood Count 8.4 x10^3/uL Red Blood Count 2.31 x10^6/uL Hemoglobin 7.4 g/dL Hematocrit 21.9 % Mean Corpuscular Volume 95 fL Mean Corpuscular Hemoglobin 32 pg Mean Corpuscular Hemoglobin Concent 34 g/dL Red Cell Distribution Width 17.5 % Platelet Count 160 x10^3/uL Neutrophils (%) (Auto) 70 % Lymphocytes (%) (Auto) 21 % Monocytes (%) (Auto) 7 % Eosinophils (%) (Auto) 1 % Basophils (%) (Auto) 1 % Neutrophils # (Auto) 5.9 x10^3/uL Lymphocytes # (Auto) 1.7 x10^3/uL Monocytes # (Auto) 0.6 x10^3/uL Eosinophils # (Auto) 0.1 x10^3/uL Basophils # (Auto) 0.1 x10^3/uL Sodium Level 140 mmol/L Potassium Level 3.6 mmol/L Chloride Level 108 mmol/L Carbon Dioxide Level 20 mmol/L Anion Gap 12 Blood Urea Nitrogen 70 mg/dL Creatinine 2.4 mg/dL Estimated GFR (Cockcroft-Gault) 26.4 Glucose Level 106 mg/dL Calcium Level 8.8 mg/dL Magnesium Level 1.7 mg/dL Iron Level 63 ug/dL Total Iron Binding Capacity 100 ug/dL Iron Saturation 63 % Ferritin 155 ng/mL Test 06/28/19 06:10 Glucose (Fingerstick) 96 mg/dL PE: GEN: NAD LUNGS: room air HEART: RRR ABD: quiet when I listened (though pt and nurse say is passing gas), still quite distended w/ hernia NEURO/PSYCH: A & O �3 A/P: LUE abscess, RENATA/CKD, C Diff Erosive esophagitis, duodenal ulcer (path benign) - on EGD 06/08/19 and has been on PPI since Abnormal abd imaging - colonic and SB dilatation Anemia - improved w/ transfusion - has a "mucoid bloody stool" over the weekend and dark emesis on 06/22 - initial labs c/w ACD (iron profile different after transfusion) H/o chronic pain and constipation -- Plans to transfer to [facility]. Ongoing abd distention - quiet today but reportedly passing flatus. Will review diet and/or interval imaging recs w/ Dr. Oliveira - on clears and TPN, last CT 06/13, last KUB 06/22. Continue PPI - could change to PO. GERALD SMITH Jun 28, 2019 12:27
--- NOTE | 2019-06-28 12:58 | PDOC ---
PULMONARY PROGRESS NOTES Subjective EXTUBATED 06/25 NO SOA Vitals Vital Signs Date Time Temp Pulse Resp B/P (MAP) Pulse Ox O2 Delivery O2 Flow Rate FiO2 06/28/19 12:50 99 Room Air 2.0 06/28/19 12:00 98.2 83 15 134/60 (84) 98.2 General: Alert, No acute distress Lungs: Other (decrease bs) Cardiovascular: S1, S2 Abdomen: Other (distended, firm, abdominal wall hernia) Extremities: Other (2+edema, scrotal edema) Skin: Warm Labs Laboratory Tests Test 06/26/19 13:28 06/26/19 17:56 06/26/19 21:06 06/26/19 23:54 Glucose (Fingerstick) 162 mg/dL (70-99) 132 mg/dL (70-99) 200 mg/dL (70-99) 200 mg/dL (70-99) Test 06/27/19 05:00 06/27/19 06:14 06/27/19 11:39 06/27/19 18:10 White Blood Count 7.9 x10^3/uL (4.0-11.0) Red Blood Count 1.94 x10^6/uL (4.30-5.70) Hemoglobin 6.3 g/dL (13.0-17.5) Hematocrit 18.9 % (39.0-53.0) Mean Corpuscular Volume 97 fL (79-100) Mean Corpuscular Hemoglobin 32 pg (25-35) Mean Corpuscular Hemoglobin Concent 33 g/dL (31-37) Red Cell Distribution Width 15.5 % (11.5-14.5) Platelet Count 147 x10^3/uL (140-400) Neutrophils (%) (Auto) 72 % (31-73) Lymphocytes (%) (Auto) 19 % (24-48) Monocytes (%) (Auto) 7 % (0-9) Eosinophils (%) (Auto) 1 % (0-3) Basophils (%) (Auto) 1 % (0-3) Neutrophils # (Auto) 5.7 x10^3/uL (1.8-7.7) Lymphocytes # (Auto) 1.5 x10^3/uL (1.0-4.8) Monocytes # (Auto) 0.5 x10^3/uL (0.0-1.1) Eosinophils # (Auto) 0.1 x10^3/uL (0.0-0.7) Basophils # (Auto) 0.1 x10^3/uL (0.0-0.2) Sodium Level 142 mmol/L (136-145) Potassium Level 3.8 mmol/L (3.5-5.1) Chloride Level 111 mmol/L (98-107) Carbon Dioxide Level 18 mmol/L (21-32) Anion Gap 13 (6-14) Blood Urea Nitrogen 58 mg/dL (8-26) Creatinine 2.0 mg/dL (0.7-1.3) Estimated GFR (Cockcroft-Gault) 32.6 BUN/Creatinine Ratio 29 (6-20) Glucose Level 193 mg/dL (70-99) Calcium Level 8.3 mg/dL (8.5-10.1) Phosphorus Level 5.2 mg/dL (2.6-4.7) Magnesium Level 1.8 mg/dL (1.8-2.4) Total Bilirubin 0.3 mg/dL (0.2-1.0) Aspartate Amino Transf (AST/SGOT) 19 U/L (15-37) Alanine Aminotransferase (ALT/SGPT) 14 U/L (16-63) Alkaline Phosphatase 57 U/L (46-116) Total Protein 5.2 g/dL (6.4-8.2) Albumin 2.8 g/dL (3.4-5.0) Albumin/Globulin Ratio 1.2 (1.0-1.7) Glucose (Fingerstick) 180 mg/dL (70-99) 175 mg/dL (70-99) 156 mg/dL (70-99) Test 06/27/19 20:54 06/28/19 00:12 06/28/19 05:20 06/28/19 06:10 Glucose (Fingerstick) 118 mg/dL (70-99) 112 mg/dL (70-99) 96 mg/dL (70-99) White Blood Count 8.4 x10^3/uL (4.0-11.0) Red Blood Count 2.31 x10^6/uL (4.30-5.70) Hemoglobin 7.4 g/dL (13.0-17.5) Hematocrit 21.9 % (39.0-53.0) Mean Corpuscular Volume 95 fL (79-100) Mean Corpuscular Hemoglobin 32 pg (25-35) Mean Corpuscular Hemoglobin Concent 34 g/dL (31-37) Red Cell Distribution Width 17.5 % (11.5-14.5) Platelet Count 160 x10^3/uL (140-400) Neutrophils (%) (Auto) 70 % (31-73) Lymphocytes (%) (Auto) 21 % (24-48) Monocytes (%) (Auto) 7 % (0-9) Eosinophils (%) (Auto) 1 % (0-3) Basophils (%) (Auto) 1 % (0-3) Neutrophils # (Auto) 5.9 x10^3/uL (1.8-7.7) Lymphocytes # (Auto) 1.7 x10^3/uL (1.0-4.8) Monocytes # (Auto) 0.6 x10^3/uL (0.0-1.1) Eosinophils # (Auto) 0.1 x10^3/uL (0.0-0.7) Basophils # (Auto) 0.1 x10^3/uL (0.0-0.2) Sodium Level 140 mmol/L (136-145) Potassium Level 3.6 mmol/L (3.5-5.1) Chloride Level 108 mmol/L (98-107) Carbon Dioxide Level 20 mmol/L (21-32) Anion Gap 12 (6-14) Blood Urea Nitrogen 70 mg/dL (8-26) Creatinine 2.4 mg/dL (0.7-1.3) Estimated GFR (Cockcroft-Gault) 26.4 Glucose Level 106 mg/dL (70-99) Calcium Level 8.8 mg/dL (8.5-10.1) Magnesium Level 1.7 mg/dL (1.8-2.4) Iron Level 63 ug/dL (65-175) Total Iron Binding Capacity 100 ug/dL (250-450) Iron Saturation 63 % (15-34) Ferritin 155 ng/mL (26-388) Laboratory Tests Test 06/27/19 18:10 06/27/19 20:54 06/28/19 00:12 06/28/19 05:20 Glucose (Fingerstick) 156 mg/dL (70-99) 118 mg/dL (70-99) 112 mg/dL (70-99) White Blood Count 8.4 x10^3/uL (4.0-11.0) Red Blood Count 2.31 x10^6/uL (4.30-5.70) Hemoglobin 7.4 g/dL (13.0-17.5) Hematocrit 21.9 % (39.0-53.0) Mean Corpuscular Volume 95 fL (79-100) Mean Corpuscular Hemoglobin 32 pg (25-35) Mean Corpuscular Hemoglobin Concent 34 g/dL (31-37) Red Cell Distribution Width 17.5 % (11.5-14.5) Platelet Count 160 x10^3/uL (140-400) Neutrophils (%) (Auto) 70 % (31-73) Lymphocytes (%) (Auto) 21 % (24-48) Monocytes (%) (Auto) 7 % (0-9) Eosinophils (%) (Auto) 1 % (0-3) Basophils (%) (Auto) 1 % (0-3) Neutrophils # (Auto) 5.9 x10^3/uL (1.8-7.7) Lymphocytes # (Auto) 1.7 x10^3/uL (1.0-4.8) Monocytes # (Auto) 0.6 x10^3/uL (0.0-1.1) Eosinophils # (Auto) 0.1 x10^3/uL (0.0-0.7) Basophils # (Auto) 0.1 x10^3/uL (0.0-0.2) Sodium Level 140 mmol/L (136-145) Potassium Level 3.6 mmol/L (3.5-5.1) Chloride Level 108 mmol/L (98-107) Carbon Dioxide Level 20 mmol/L (21-32) Anion Gap 12 (6-14) Blood Urea Nitrogen 70 mg/dL (8-26) Creatinine 2.4 mg/dL (0.7-1.3) Estimated GFR (Cockcroft-Gault) 26.4 Glucose Level 106 mg/dL (70-99) Calcium Level 8.8 mg/dL (8.5-10.1) Magnesium Level 1.7 mg/dL (1.8-2.4) Iron Level 63 ug/dL (65-175) Total Iron Binding Capacity 100 ug/dL (250-450) Iron Saturation 63 % (15-34) Ferritin 155 ng/mL (26-388) Test 06/28/19 06:10 Glucose (Fingerstick) 96 mg/dL (70-99) Medications Active Scripts Medications Dose Route/Sig Max Daily Dose Days Date Category Foltx Tablet (B12/Levomefolate Calcium/B-6) 1 Each Tablet 1 Each PO AFTRNOON 06/07/19 Reported Testosterone Cypionate 200 Mg/1 Ml Vial 1 Ml IM Q2WKS 06/07/19 Reported Novolog Mix 70-30 Flexpen Syrn (Insuln Asp Prt/Insulin Aspart) 100 Unit/1 Ml Insuln.pen 1 Unit SQ BIDACBL 06/07/19 Reported Lantus Solostar (Insulin Glargine,Hum.rec.anlog) 100 Unit/1 Ml Insuln.pen 30 Unit SQ QHS 06/07/19 Reported Nifedipine Er (Nifedipine) 60 Mg Tab.er.24 1 Tab PO DAILY 06/07/19 Reported Morphine Sulfate Er (Morphine Sulfate) 60 Mg Tablet.er 1 Tab PO BID 06/07/19 Reported Furosemide 40 Mg Tablet 40 Mg PO DAILY 06/07/19 Reported Finasteride 5 Mg Tablet 1 Tab PO DAILY 06/07/19 Reported Simvastatin 40 Mg Tablet 1 Tab PO QHS 06/07/19 Reported Metoprolol Succinate ( Xl ) (Metoprolol Succinate) 200 Mg Tab.er.24h 1 Tab PO DAILY 06/07/19 Reported Levothyroxine Sodium 175 Mcg Tablet 1 Tab PO DAILY 06/07/19 Reported Losartan-Hctz 100-12.5 Mg Tab (Losartan/Hydrochlorothiazide) 1 Each Tablet 1 Tab PO DAILY 06/07/19 Reported Comments CXR 06/25 reviewed bilateral lower lobe subsegmental atelectasis and/ or infiltrate.ett ok Impression . 1. Acute Respiratory failure, multifactorial, includes septic shock, colonic ileus EXTUBATED 06/25 2. septic shock, resolved. 3. Erosive gastritis./ colonic ileus with recurrent emesis. high risk for aspiration. will not be able to protect his airway post extubation 4. C-Diff 5. Coronary artery disease, status post coronary artery bypass grafting. 6, COLONIC ILEUS 7. abnormal cxr with atelectasis 8. SHOULDER ABSCESS 9. RENATA 10. severe PCM 11. c diff colitis ID NOTE LUE abscess s/p 10 ml removal 06/13. group B strep -S/p Left shoulder open incision and drainage with arthrotomy, debridement of bone and bone cement, and joint irrigation 06/14 G B strep C. diff positive, 06/14 Plan . Nasal canula ultra filtration PER NEPHRO ABG, CXR NOTED ANTI BX PER ID D/W RN D/W speech eval done, clear liquids discussed w rn LTAC eval ok with transfer d/w LITA DAVIS MD Jun 28, 2019 12:58
--- NOTE | 2019-06-28 15:45 | NUR ---
patient left with left ij CL, right IJ HD cath, woodson cath TPN sent with patient inst. on wounds sent with patient. patient alert
== END 2019-06-28 15:40 | DRG 853 ==
LOC: 6 SOUTH 15:50 → 1 WEST ICU 06-14 13:38
PROVIDERS: ADMIT Internal Medicine; ATTEND Internal Medicine
PROC: 0DB98ZX Excision of Duodenum, Via Natural or Artificial Opening Endoscopic, Diagnostic (ICD-10-PCS; 2019-06-08)
PROC: 0DB68ZX Excision of Stomach, Via Natural or Artificial Opening Endoscopic, Diagnostic (ICD-10-PCS; 2019-06-08)
PROC: 0D9670Z Drainage of Stomach with Drainage Device, Via Natural or Artificial Opening (ICD-10-PCS; 2019-06-08)
PROC: 0R9K3ZX Drainage of Left Shoulder Joint, Percutaneous Approach, Diagnostic (ICD-10-PCS; 2019-06-13)
PROC: 0PBD0ZZ Excision of Left Humeral Head, Open Approach (ICD-10-PCS; 2019-06-14)
PROC: 5A1955Z Respiratory Ventilation, Greater than 96 Consecutive Hours (ICD-10-PCS; 2019-06-14)
PROC: 0BH17EZ Insertion of Endotracheal Airway into Trachea, Via Natural or Artificial Opening (ICD-10-PCS; 2019-06-14)
PROC: 30233N1 Transfusion of Nonautologous Red Blood Cells into Peripheral Vein, Percutaneous Approach (ICD-10-PCS; 2019-06-14)
PROC: 0PSD0ZZ Reposition Left Humeral Head, Open Approach (ICD-10-PCS; principal; 2019-06-14 17:00)
PROC: 02H633Z Insertion of Infusion Device into Right Atrium, Percutaneous Approach (ICD-10-PCS; 2019-06-15)
PROC: B244ZZZ Ultrasonography of Right Heart (ICD-10-PCS; 2019-06-15)
PROC: 5A1D70Z Performance of Urinary Filtration, Intermittent, Less than 6 Hours Per Day (ICD-10-PCS; 2019-06-15)
PROC: 5A1D70Z Performance of Urinary Filtration, Intermittent, Less than 6 Hours Per Day (ICD-10-PCS; 2019-06-23)
PROC: 5A1D70Z Performance of Urinary Filtration, Intermittent, Less than 6 Hours Per Day (ICD-10-PCS; 2019-06-24)
DX: A41.9 Sepsis, unspecified organism (principal); E43 Unspecified severe protein-calorie malnutrition; N17.0 Acute kidney failure with tubular necrosis; R65.21 Severe sepsis with septic shock; J96.00 Acute respiratory failure, unspecified whether with hypoxia or hypercapnia; L02.414 Cutaneous abscess of left upper limb; K22.10 Ulcer of esophagus without bleeding; K92.0 Hematemesis; A04.72 Enterocolitis due to Clostridium difficile, not specified as recurrent; D62 Acute posthemorrhagic anemia; I13.0 Hypertensive heart and chronic kidney disease with heart failure and stage 1 through stage 4 chronic kidney disease, or unspecified chronic kidney disease; J98.11 Atelectasis; T84.59XA Infection and inflammatory reaction due to other internal joint prosthesis, initial encounter; I47.1 Supraventricular tachycardia; E87.1 Hypo-osmolality and hyponatremia; K29.70 Gastritis, unspecified, without bleeding; D63.8 Anemia in other chronic diseases classified elsewhere; D69.6 Thrombocytopenia, unspecified; E03.9 Hypothyroidism, unspecified; E11.22 Type 2 diabetes mellitus with diabetic chronic kidney disease; E78.5 Hyperlipidemia, unspecified; F17.210 Nicotine dependence, cigarettes, uncomplicated; F32.9 Major depressive disorder, single episode, unspecified; G47.33 Obstructive sleep apnea (adult) (pediatric); G89.4 Chronic pain syndrome; I25.10 Atherosclerotic heart disease of native coronary artery without angina pectoris; I50.9 Heart failure, unspecified; J44.9 Chronic obstructive pulmonary disease, unspecified; K26.9 Duodenal ulcer, unspecified as acute or chronic, without hemorrhage or perforation; K29.60 Other gastritis without bleeding; K43.9 Ventral hernia without obstruction or gangrene; K76.0 Fatty (change of) liver, not elsewhere classified; N18.3 Chronic kidney disease, stage 3 (moderate); N40.1 Benign prostatic hyperplasia with lower urinary tract symptoms; Q85.00 Neurofibromatosis, unspecified; Y83.8 Other surgical procedures as the cause of abnormal reaction of the patient, or of later complication, without mention of misadventure at the time of the procedure; Y92.89 Other specified places as the place of occurrence of the external cause; Z66 Do not resuscitate; Z86.14 Personal history of Methicillin resistant Staphylococcus aureus infection; Z87.11 Personal history of peptic ulcer disease; Z87.19 Personal history of other diseases of the digestive system; Z88.0 Allergy status to penicillin; Z95.1 Presence of aortocoronary bypass graft; Z96.612 Presence of left artificial shoulder joint; M19.90 Unspecified osteoarthritis, unspecified site; Z88.8 Allergy status to other drugs, medicaments and biological substances; Z51.5 Encounter for palliative care; K29.50 Unspecified chronic gastritis without bleeding; R19.7 Diarrhea, unspecified; E87.6 Hypokalemia; K59.00 Constipation, unspecified; Z68.31 Body mass index [BMI] 31.0-31.9, adult
CPT/HCPCS: 10005; 36415; 36556; 36600; 43239; 51798; 71045; 73200; 73521; 74018; 74176; 76870; 76937; 80048; 80051; 80053; 80061; 82607; 82728; 82803; 82805; 82962; 83540; 83550; 83735; 84100; 84478; 85007; 85014; 85018; 85025; 85027; 85610; 85651; 86140; 86704; 86706; 86850; 86900; 86901; 86902; 86922; 87040; 87070; 87071; 87075; 87102; 87116; 87205; 87340; 87493; 88305; 88342; 93005; 93308; 93320; 93325; 93971; 94003; 94640; 94760; C1769; C1892; C9113; J0171; J0330; J0696; J0878; J1100; J1170; J1644; J1815; J1940; J2001; J2185; J2212; J2250; J2370; J2405; J2704; J3010; J3475; J3480; J3490; J7030; J7040; J7042; J7120; P9016; P9045; P9046; 92526; 92610; 97530; 97535; A4461; G0378

== ENCOUNTER 2019-09-10 14:36 | Inpatient (IN) | payer MEDICARE ==
[~2019-09-10] VITALS: Ht 175.3 cm; Wt 101.6 kg
[~2019-09-10 14:36] MED LIST: B12/1TAB PO; FINA5TAB4 PO; FURO40TA4 PO; INSU100I13 SQ; INSU100I16 SQ; LEVO175T5 PO; LOSA1TAB25 PO; METO200T46 PO; MORP60TA60 PO; NIFE60TA16 PO; SIMV40TA18 PO; TEST200V3 IM
[2019-09-10] MEDS ORDERED: IV NORMAL SALINE 1000ML BAG 1,000 ML IV ONE (15:00)
--- NOTE | 2019-09-10 15:17 | PHYS DOC ---
Adult General Chief Complaint Chief Complaint: DIARRHEA HPI HPI Patient is a 78 year old male who presents from [facility] with 3 bouts of diarrhea today and fever. The states that he has a history of confusion and it comes and goes. His temperature on arrival to the ER is 101F. He has a history of C. difficile and is on unknown antibiotic. Review of Systems Review of Systems Unable to obtain due to patient condition. Current Medications Current Medications Current Medications Medications (Trade) Dose Ordered Sig/Lauren Start Time Stop Time Status Last Admin Dose Admin Azithromycin 250 ml @ 250 mls/hr 1X STAT 09/10/19 17:12 09/10/19 18:11 Ceftriaxone Sodium (Rocephin) 1 gm 1X STAT 09/10/19 17:12 09/10/19 17:13 UNV Sodium Chloride 1,000 ml @ 100 mls/hr 1X STAT 09/10/19 17:12 09/11/19 03:11 Allergies Allergies Allergies Coded Allergies Type Severity Reaction Last Updated Verified Penicillins Allergy Intermediate 06/14/19 Yes tapentadol Allergy Intermediate 06/14/19 Yes Iodinated Contrast Media Adverse Reaction Intermediate 09/10/19 Yes Physical Exam Physical Exam Constitutional: Well developed, well nourished, no acute distress, non-toxic appearance. [] HENT: Normocephalic, atraumatic, bilateral external ears normal, oropharynx moist, no oral exudates, nose normal. [] Eyes: PERRLA, EOMI, conjunctiva normal, no discharge. [] Neck: Normal range of motion, no tenderness, supple, no stridor. [] Cardiovascular:Heart rate regular rhythm, no murmur [] Lungs & Thorax: Bilateral breath sounds clear to auscultation [] Abdomen: Bowel sounds normal, soft, mild tenderness, no masses, no pulsatile masses. [] Skin: Warm, dry, no erythema, no rash. [] Back: No tenderness, no CVA tenderness. [] Extremities: No tenderness, no cyanosis, no clubbing, ROM intact, no edema. [] Neurologic: GCS 14, normal motor function, normal sensory function, no focal deficits noted. [] Psychologic: Affect normal, judgement normal, mood normal. [] Current Patient Data Vital Signs Vital Signs Date Time Temp Pulse Resp B/P (MAP) Pulse Ox O2 Delivery O2 Flow Rate FiO2 09/10/19 14:36 101.1 81 21 92/45 (61) 93 Room Air 101.1 Lab Values Laboratory Tests Test 09/10/19 15:05 09/10/19 15:30 White Blood Count 4.5 x10^3/uL (4.0-11.0) Red Blood Count 2.89 x10^6/uL (4.30-5.70) L Hemoglobin 8.9 g/dL (13.0-17.5) L Hematocrit 26.7 % (39.0-53.0) L Mean Corpuscular Volume 92 fL (79-100) Mean Corpuscular Hemoglobin 31 pg (25-35) Mean Corpuscular Hemoglobin Concent 34 g/dL (31-37) Red Cell Distribution Width 15.9 % (11.5-14.5) H Platelet Count 195 x10^3/uL (140-400) Neutrophils (%) (Auto) 70 % (31-73) Lymphocytes (%) (Auto) 10 % (24-48) L Monocytes (%) (Auto) 20 % (0-9) H Eosinophils (%) (Auto) 0 % (0-3) Basophils (%) (Auto) 0 % (0-3) Neutrophils # (Auto) 3.1 x10^3/uL (1.8-7.7) Lymphocytes # (Auto) 0.4 x10^3/uL (1.0-4.8) L Monocytes # (Auto) 0.9 x10^3/uL (0.0-1.1) Eosinophils # (Auto) 0.0 x10^3/uL (0.0-0.7) Basophils # (Auto) 0.0 x10^3/uL (0.0-0.2) Segmented Neutrophils % 25 % (35-66) L Band Neutrophils % 46 % (0-9) H Lymphocytes % 10 % (24-48) L Monocytes % 18 % (0-10) H Metamyelocytes % 1 % (0-0) H Dohle Bodies Few Platelet Estimate Adequate (ADEQUATE) Ovalocytes Few Prothrombin Time 15.2 SEC (11.7-14.0) H Prothrombin Time INR 1.2 (0.8-1.1) H Activated Partial Thromboplast Time 47 SEC (24-38) H Sodium Level 133 mmol/L (136-145) L Potassium Level 4.4 mmol/L (3.5-5.1) Chloride Level 96 mmol/L (98-107) L Carbon Dioxide Level 26 mmol/L (21-32) Anion Gap 11 (6-14) Blood Urea Nitrogen 75 mg/dL (8-26) H Creatinine 4.6 mg/dL (0.7-1.3) H Estimated GFR (Cockcroft-Gault) 12.5 BUN/Creatinine Ratio 16 (6-20) Glucose Level 101 mg/dL (70-99) H Lactic Acid Level 1.1 mmol/L (0.4-2.0) Calcium Level 9.3 mg/dL (8.5-10.1) Magnesium Level 1.8 mg/dL (1.8-2.4) Total Bilirubin 0.6 mg/dL (0.2-1.0) Aspartate Amino Transferase (AST) 14 U/L (15-37) L Alanine Aminotransferase (ALT) 11 U/L (16-63) L Alkaline Phosphatase 50 U/L (46-116) Total Protein 6.2 g/dL (6.4-8.2) L Albumin 2.7 g/dL (3.4-5.0) L Albumin/Globulin Ratio 0.8 (1.0-1.7) L Influenza Type A Antigen Negative (NEGATIVE) Influenza Type B Antigen Negative (NEGATIVE) Laboratory Tests 09/10/19 15:05 Laboratory Tests 09/10/19 15:05 EKG EKG [] Radiology/Procedures Radiology/Procedures [][facility] [address] [place] [address] [id number] [place] [address] IMAGING REPORT Signed PATIENT: ROSLYN MOORE ACCOUNT: [id number] : 1940 LOCATION: ER AGE: 78 SEX: M EXAM STATUS: REG ER ORD. PHYSICIAN: MOOKIE BRAGA APRN REASON: fever, diarrhea, abd pain PROCEDURE: CT ABDOMEN PELVIS WO CONTRAST Exam: CT abdomen and pelvis without contrast INDICATION: Fever, diarrhea and abdominal pain TECHNIQUE: Sequential axial images through the abdomen and pelvis obtained without IV contrast. Sagittal and coronal reformatted images were reconstructed from the axial data and reviewed. Comparisons: 06/13/2019 FINDINGS: Heart size is normal. There are are moderate trivessel coronary artery calcifications. No pericardial small bilateral pleural effusions are noted. There is linear bandlike opacity at the lung bases, likely representing atelectasis. Evaluation of solid organs is limited secondary to noncontrast technique. Liver, spleen, pancreas, gallbladder and adrenals are unremarkable. Numerous cystic hypoattenuating lesions are noted in the kidneys bilaterally which are included characterized on noncontrast exam. No renal or ureteral calculi are identified. No perinephric inflammation or hydronephrosis. Bladder is decompressed not well evaluated. Prostate is not enlarged. There is diffuse wall thickening noted throughout the colon with adjacent mesenteric fat stranding diffusely. Appendix is not definitively identified. No free intra-abdominal air or fluid. There is a umbilical hernia which contains a short segment of small bowel. No evidence for obstruction. Abdominal aorta has a normal course and caliber. No enlarged intra-abdominal lymph nodes are identified. No suspicious osseous lesions or acute fractures. IMPRESSION: 1. Pancolitis with diffuse wall thickening and adjacent inflammatory changes throughout the colon. Findings are nonspecific may be infectious or inflammatory in etiology. 2. An umbilical hernia which contains a short segment of small bowel. No evidence for obstruction. 3. Numerous hypoattenuating lesions within the kidneys bilaterally incompletely characterized on noncontrast exam. 4. Trace bilateral pleural effusions with adjacent atelectasis. Exposure: One or more of the following in the visualized dose reduction techniques were utilized for this examination: 1. Automated exposure control 2. Adjustment of the MA and/or KV according to patient size 3. Use of iterative of reconstructive technique Electronically signed by: Jessy Rainey MD (09/10/2019 3:52 PM) [facility] DICTATED and SIGNED BY: JESSY RAINEY MD DATE: 09/10/19 155 IMAGING REPORT Signed PATIENT: ROSLYN MOORE ACCOUNT: [id number] : 1940 LOCATION: ER AGE: 78 SEX: M EXAM STATUS: REG ER ORD. PHYSICIAN: MOOKIE BRAGA APRN REASON: fever, ams. unable to stand, done in wheelchair PROCEDURE: CHEST PA & LATERAL PA and lateral views of the chest. Comparison: 06/25/2019. Indication: Fever and altered mental status Findings: Scarring of the right medial lung is stable. Postop changes of the left shoulder. Questionable dislocation. The heart size is normal. No pneumothorax or effusion. There appears to be retrocardiac airspace disease. Impression: 1. Left retrocardiac airspace disease may be pneumonia. 2. Additionally appears to be dislocation of the left humeral prosthesis. Additionally there is poor visualization of the bony cortex of the proximal humerus. Recommend dedicated shoulder imaging for further evaluation of both findings. Electronically signed by: Asa Bagley MD (09/10/2019 3:35 PM) [facility] DICTATED and SIGNED BY: ASA BAGLEY MD DATE: 09/10/19 1535 Course & Med Decision Making Course & Med Decision Making Pertinent Labs and Imaging studies reviewed. (See chart for details) Will get labs (including c-diff), CT scan, and give supportive care. X-ray suggests pneumonia, CT suggests a pancolitis. Will page Dr. Hancock and discuss. Creatinine is 4.6 which is double the baseline of 2.[address] Hancock who requests Meropenem/Vanc, and Bladder Scan as patient has a history of retaining urine. If retaining he wants Bledsoe. Dr. Hancock accepts admission. Dragon Disclaimer Dragon Disclaimer This electronic medical record was generated, in whole or in part, using a voice recognition dictation system. Departure Departure Impression: Primary Impression: RENATA (acute kidney injury) Additional Impressions: Pneumonia Diarrhea Disposition: ADMITTED INPATIENT Admitting Physician: Madi. Hastings Condition: GUARDED Referrals: KERI HANCOCK MD (PCP) Problem Qualifiers Additional Impressions: Pneumonia Pneumonia type: due to unspecified organism Laterality: left Lung location: lower lobe of lung Qualified Codes: J18.9 - Pneumonia, unspecified organism Diarrhea Diarrhea type: presumed infectious Qualified Codes: R19.7 - Diarrhea, unspecified [place] APRN Sep 10, 2019 15:17
[2019-09-10 15:20] LABS: BASO % 0 % (0-3); EOS % 0 % (0-3); HEMATOCRIT 26.7 % (39.0-53.0); HEMOGLOBIN 8.9 g/dL (13.0-17.5); LYMPH # 0.4 x10^3/uL (1.0-4.8); LYMPH % 10 % (24-48); MEAN CORPUSCULAR HEMOGLOBIN 31 pg (25-35); MEAN CORPUSCULAR HGB CONC 34 g/dL (31-37); MEAN CORPUSCULAR VOLUME 92 fL (79-100); MONO # 0.9 x10^3/uL (0.0-1.1); MONO % 20 % (0-9); NEUT # 3.1 x10^3/uL (1.8-7.7); NEUT % 70 % (31-73); PLATELET COUNT 195 x10^3/uL (140-400); RED BLOOD COUNT 2.89 x10^6/uL (4.30-5.70); RED CELL DISTRIBUTION WIDTH 15.9 % (11.5-14.5); WHITE BLOOD COUNT 4.5 x10^3/uL (4.0-11.0)
[2019-09-10 15:31] LABS: PROTHROMBIN TIME PATIENT 15.2 SEC (11.7-14.0)
[2019-09-10 15:37] LABS: CALCIUM 9.3 mg/dL (8.5-10.1); CREATININE 4.6 mg/dL (0.7-1.3); GFR 12.5; POTASSIUM 4.4 mmol/L (3.5-5.1)
--- NOTE | 2019-09-10 15:39 | RAD ---
PA and lateral views of the chest. Comparison: 06/25/2019. Indication: Fever and altered mental status Findings: Scarring of the right medial lung is stable. Postop changes of the left shoulder. Questionable dislocation. The heart size is normal. No pneumothorax or effusion. There appears to be retrocardiac airspace disease. Impression: 1. Left retrocardiac airspace disease may be pneumonia. 2. Additionally appears to be dislocation of the left humeral prosthesis. Additionally there is poor visualization of the bony cortex of the proximal humerus. Recommend dedicated shoulder imaging for further evaluation of both findings. Electronically signed by: Asa Bagley MD (09/10/2019 3:35 PM) [facility]
[2019-09-10 15:42] LABS: ALBUMIN 2.7 g/dL (3.4-5.0); ALBUMIN/GLOBULIN RATIO 0.8 (1.0-1.7); MAGNESIUM 1.8 mg/dL (1.8-2.4); TOTAL BILIRUBIN 0.6 mg/dL (0.2-1.0); TOTAL PROTEIN 6.2 g/dL (6.4-8.2)
--- NOTE | 2019-09-10 15:55 | RAD ---
Exam: CT abdomen and pelvis without contrast INDICATION: Fever, diarrhea and abdominal pain TECHNIQUE: Sequential axial images through the abdomen and pelvis obtained without IV contrast. Sagittal and coronal reformatted images were reconstructed from the axial data and reviewed. Comparisons: 06/13/2019 FINDINGS: Heart size is normal. There are are moderate trivessel coronary artery calcifications. No pericardial small bilateral pleural effusions are noted. There is linear bandlike opacity at the lung bases, likely representing atelectasis. Evaluation of solid organs is limited secondary to noncontrast technique. Liver, spleen, pancreas, gallbladder and adrenals are unremarkable. Numerous cystic hypoattenuating lesions are noted in the kidneys bilaterally which are included characterized on noncontrast exam. No renal or ureteral calculi are identified. No perinephric inflammation or hydronephrosis. Bladder is decompressed not well evaluated. Prostate is not enlarged. There is diffuse wall thickening noted throughout the colon with adjacent mesenteric fat stranding diffusely. Appendix is not definitively identified. No free intra-abdominal air or fluid. There is a umbilical hernia which contains a short segment of small bowel. No evidence for obstruction. Abdominal aorta has a normal course and caliber. No enlarged intra-abdominal lymph nodes are identified. No suspicious osseous lesions or acute fractures. IMPRESSION: 1. Pancolitis with diffuse wall thickening and adjacent inflammatory changes throughout the colon. Findings are nonspecific may be infectious or inflammatory in etiology. 2. An umbilical hernia which contains a short segment of small bowel. No evidence for obstruction. 3. Numerous hypoattenuating lesions within the kidneys bilaterally incompletely characterized on noncontrast exam. 4. Trace bilateral pleural effusions with adjacent atelectasis. Exposure: One or more of the following in the visualized dose reduction techniques were utilized for this examination: 1. Automated exposure control 2. Adjustment of the MA and/or KV according to patient size 3. Use of iterative of reconstructive technique Electronically signed by: Jessy Carroll MD (09/10/2019 3:52 PM) [facility] [id number]
[2019-09-10 16:08] LABS: INFLUENZA A PATIENT NEGATIVE (NEGATIVE); INFLUENZA B PATIENT NEGATIVE (NEGATIVE)
[2019-09-10 16:44] LABS: % BANDS 46 % (0-9); % LYMPHS 10 % (24-48); % METAS 1 % (0-0); % MONOS 18 % (0-10); % SEGS 25 % (35-66)
[2019-09-10 16:46] LABS: OVALOCYTES FEW; PLT ESTIMATE ADEQUATE (ADEQUATE)
[2019-09-10] MEDS ORDERED: AZITHRMYCN 500MG IVPB FOR OMNI 250 ML IV STA (17:12)
[2019-09-10] MEDS ORDERED: IV NORMAL SALINE 1000ML BAG 1,000 ML IV STA (17:12)
[2019-09-10] MEDS ORDERED: cefTRIAXone IV Push 1 GM VIAL. IVP STA (17:12)
[2019-09-10] MEDS ORDERED: VANCOMYCIN PER PHARMACY MC STA (17:31)
[2019-09-10] MEDS ORDERED: VANCOMYCIN 1.5 GM in IV NORMAL SALINE 500ML BAG 500 ML IV ONE (17:45)
[2019-09-10] MEDS ORDERED: MEROPENEM 500 MG in IV NORMAL SALINE 50ML 50 ML IV ONE (17:45)
[2019-09-10 21:30] VITALS: BP 99/40
[2019-09-10] MEDS ORDERED: C.DIFF MED SCREEN BY RX. MC ONE (22:30)
[2019-09-10 23:10] VITALS: BP 102/42
[2019-09-10 23:13] LABS: BILIRUBIN,URINE NEGATIVE (NEG); CLARITY,URINE CLEAR; COLOR,URINE YELLOW; NITRITE,URINE NEGATIVE (NEG); PROTEIN,URINE NEGATIVE (NEG-TRACE); UROBILINOGEN,URINE 0.2 mg/dL (0.2 mg/dL)
[2019-09-10 23:21] LABS: BACTERIA,URINE FEW /HPF (0-FEW); RBC,URINE OCC /HPF (0-2)
[2019-09-10 23:22] LABS: AMORPHOUS SEDIMENT,UR PRESENT /HPF; HYALINE CASTS, URINE FEW /HPF; SQUAMOUS EPITHELIAL CELL,UR OCC /LPF
[2019-09-10] MEDS ORDERED: BISACODYL 10 MG SUPP.RECT. RC PRN (23:30)
[2019-09-10] MEDS ORDERED: SENN8.6T11 PO (23:30)
[2019-09-10] MEDS ORDERED: ASCO100T4 PO (23:30)
[2019-09-10] MEDS ORDERED: INSU100I13 SQ (23:30)
[2019-09-10] MEDS ORDERED: ATOR20TA58 PO (23:30)
[2019-09-10] MEDS ORDERED: METH150T PO (23:30)
[2019-09-10] MEDS ORDERED: HYDROmorphone 4 MG TABLET PO PRN (23:30)
[2019-09-10] MEDS ORDERED: CEFD300C PO (23:30)
[2019-09-10] MEDS ORDERED: ONDA4TAB7 PO (23:30)
[2019-09-10] MEDS ORDERED: MORP30TA PO (23:30)
[2019-09-10] MEDS ORDERED: HYDR4TAB PO (23:30)
[2019-09-10] MEDS ORDERED: TAMS0.4C97 PO (23:30)
[2019-09-10] MEDS ORDERED: LACT1CAP2 PO (23:30)
[2019-09-10] MEDS ORDERED: LINZESS145 MCG PO (23:30)
[2019-09-10] MEDS ORDERED: FENT1PAT91 TP (23:30)
[2019-09-10] MEDS ORDERED: BISA10SU4 RC (23:30)
[2019-09-10] MEDS ORDERED: PANT40TA77 PO (23:30)
[2019-09-10] MEDS ORDERED: MULT-245 PO (23:30)
[2019-09-10] MEDS ORDERED: ONDANSETRON ODT 4 MG TAB.RAPDIS. PO PRN (23:45)
[2019-09-10] MEDS ORDERED: DEXTROSE 50% 25 GM / 50ML DISP.SYRIN. IV PRN (23:45)
--- NOTE | 2019-09-10 23:52 | NUR ---
Vancomycin non-administered because he received in the ED.
[2019-09-10] MEDS: MEROPENEM 500 MG in IV NORMAL SALINE 50ML 50 ML IV SCH (23:55)
--- NOTE | 2019-09-11 02:25 | NUR ---
The patient, ROSLYN MOORE, 78 y/o, M admitted by KERI DIGGS MD, was given written information regarding hospital policies, unit procedures and contact persons. Bed in low position with bed alarm on. 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
[2019-09-11 03:54] VITALS: BP 106/40
[2019-09-11] MEDS: LEVOTHYROXINE 100 MCG TABLET PO SCH (05:14)
[2019-09-11] MEDS: ACETAMINOPHEN 325 MG TABLET. PO PRN (05:36)
[2019-09-11 07:00] VITALS: BP 90/45
[2019-09-11] MEDS ORDERED: PANTOPRAZOLE 40 MG TABLET.DR. PO SCH (07:30)
[2019-09-11] MEDS: INSULIN LISPRO 300 UNITS/3 ML VIAL. SQ SCH ×3 (08:00→17:41)
[2019-09-11] MEDS: MEROPENEM 500 MG in IV NORMAL SALINE 50ML 50 ML IV SCH ×2 (08:26→20:52)
[2019-09-11] MEDS: LUBIPROSTONE 24 MCG CAPSULE PO SCH ×2 (08:26→17:37)
[2019-09-11] MEDS: SENNOSIDES 8.6 MG TABLET PO SCH (08:26)
[2019-09-11] MEDS: MULTIVITAMIN with MINERAL TABLET. PO SCH (08:27)
[2019-09-11] MEDS: ASCORBIC ACID 500 MG TABLET PO SCH (08:27)
[2019-09-11] MEDS: FINASTERIDE 5 MG TABLET. PO SCH (08:27)
[2019-09-11] MEDS: TAMSULOSIN 0.4 MG CAP.ER.24H. PO SCH (08:27)
[2019-09-11] MEDS: MORPHINE ER 30 MG TABLET.ER PO SCH ×3 (08:27→20:51)
[2019-09-11] MEDS: NON FORMULARY ITEM (Methylnaltrexone Bromide (Relistor) 150 MG) PO SCH (08:28)
[2019-09-11] MEDS: LACTOBACILLUS RHAMNOSUS GG 1 CAPSULE. PO SCH ×2 (08:28→20:51)
[2019-09-11] MEDS: ATORVASTATIN CALCIUM 20 MG TABLET PO SCH (08:28)
[2019-09-11] MEDS ORDERED: CEFDINIR 300 MG CAPSULE PO SCH (09:00)
[2019-09-11] MEDS ORDERED: VANCOMYCIN PER PHARMACY MC PRN (09:15)
[2019-09-11] MEDS ORDERED: IV NORMAL SALINE 1000ML BAG 1,000 ML IV SCH (09:15)
[2019-09-11] MEDS ORDERED: IV NORMAL SALINE 1000ML BAG 1,000 ML IV ONE (09:15)
[2019-09-11] MEDS: IV NORMAL SALINE 1000ML BAG 1,000 ML IV SCH ×3 (09:15→21:04)
[2019-09-11 09:33] LABS: HEMATOCRIT 24.5 % (39.0-53.0); HEMOGLOBIN 8.1 g/dL (13.0-17.5); RED BLOOD COUNT 2.64 x10^6/uL (4.30-5.70); RED CELL DISTRIBUTION WIDTH 15.9 % (11.5-14.5); WHITE BLOOD COUNT 2.8 x10^3/uL (4.0-11.0)
[2019-09-11 09:52] LABS: CALCIUM 8.9 mg/dL (8.5-10.1); CREATININE 4.7 mg/dL (0.7-1.3); GFR 12.1; POTASSIUM 4.2 mmol/L (3.5-5.1)
[2019-09-11 09:58] LABS: ALBUMIN 2.4 g/dL (3.4-5.0); ALBUMIN/GLOBULIN RATIO 0.9 (1.0-1.7); TOTAL BILIRUBIN 0.4 mg/dL (0.2-1.0)
--- NOTE | 2019-09-11 10:32 | PDOC ---
Infectious Disease Note Vital Sign Vital Signs Vital Signs Date Time Temp Pulse Resp B/P (MAP) Pulse Ox O2 Delivery O2 Flow Rate FiO2 09/11/19 07:00 98.3 77 20 90/45 (60) 93 Room Air 98.3 Labs Lab Laboratory Tests Test 09/10/19 14:42 09/10/19 15:05 09/10/19 15:30 09/10/19 22:06 Glucose (Fingerstick) 104 mg/dL (70-99) White Blood Count 4.5 x10^3/uL (4.0-11.0) Red Blood Count 2.89 x10^6/uL (4.30-5.70) Hemoglobin 8.9 g/dL (13.0-17.5) Hematocrit 26.7 % (39.0-53.0) Mean Corpuscular Volume 92 fL (79-100) Mean Corpuscular Hemoglobin 31 pg (25-35) Mean Corpuscular Hemoglobin Concent 34 g/dL (31-37) Red Cell Distribution Width 15.9 % (11.5-14.5) Platelet Count 195 x10^3/uL (140-400) Neutrophils (%) (Auto) 70 % (31-73) Lymphocytes (%) (Auto) 10 % (24-48) Monocytes (%) (Auto) 20 % (0-9) Eosinophils (%) (Auto) 0 % (0-3) Basophils (%) (Auto) 0 % (0-3) Neutrophils # (Auto) 3.1 x10^3/uL (1.8-7.7) Lymphocytes # (Auto) 0.4 x10^3/uL (1.0-4.8) Monocytes # (Auto) 0.9 x10^3/uL (0.0-1.1) Eosinophils # (Auto) 0.0 x10^3/uL (0.0-0.7) Basophils # (Auto) 0.0 x10^3/uL (0.0-0.2) Segmented Neutrophils % 25 % (35-66) Band Neutrophils % 46 % (0-9) Lymphocytes % 10 % (24-48) Monocytes % 18 % (0-10) Metamyelocytes % 1 % (0-0) Dohle Bodies Few Platelet Estimate Adequate (ADEQUATE) Ovalocytes Few Prothrombin Time 15.2 SEC (11.7-14.0) Prothromb Time International Ratio 1.2 (0.8-1.1) Activated Partial Thromboplast Time 47 SEC (24-38) Sodium Level 133 mmol/L (136-145) Potassium Level 4.4 mmol/L (3.5-5.1) Chloride Level 96 mmol/L (98-107) Carbon Dioxide Level 26 mmol/L (21-32) Anion Gap 11 (6-14) Blood Urea Nitrogen 75 mg/dL (8-26) Creatinine 4.6 mg/dL (0.7-1.3) Estimated GFR (Cockcroft-Gault) 12.5 BUN/Creatinine Ratio 16 (6-20) Glucose Level 101 mg/dL (70-99) Lactic Acid Level 1.1 mmol/L (0.4-2.0) Calcium Level 9.3 mg/dL (8.5-10.1) Magnesium Level 1.8 mg/dL (1.8-2.4) Total Bilirubin 0.6 mg/dL (0.2-1.0) Aspartate Amino Transf (AST/SGOT) 14 U/L (15-37) Alanine Aminotransferase (ALT/SGPT) 11 U/L (16-63) Alkaline Phosphatase 50 U/L (46-116) Total Protein 6.2 g/dL (6.4-8.2) Albumin 2.7 g/dL (3.4-5.0) Albumin/Globulin Ratio 0.8 (1.0-1.7) Influenza Type A Antigen Negative (NEGATIVE) Influenza Type B Antigen Negative (NEGATIVE) Urine Collection Type Unknown Urine Color Yellow Urine Clarity Clear Urine pH 5.0 Urine Specific Sandy 1.015 Urine Protein Negative mg/dL (NEG-TRACE) Urine Glucose (UA) Negative mg/dL (NEG) Urine Ketones (Stick) Negative mg/dL (NEG) Urine Blood Negative (NEG) Urine Nitrite Negative (NEG) Urine Bilirubin Negative (NEG) Urine Urobilinogen Dipstick 0.2 mg/dL (0.2 mg/dL) Urine Leukocyte Esterase Negative (NEG) Urine RBC Occ /HPF (0-2) Urine WBC 1-4 /HPF (0-4) Urine Squamous Epithelial Cells Occ /LPF Urine Transitional Epithelial Cells Occ /LPF Urine Amorphous Sediment Present /HPF Urine Bacteria Few /HPF (0-FEW) Urine Hyaline Casts Few /HPF Urine Mucus Slight /LPF Test 09/11/19 00:18 09/11/19 05:55 09/11/19 07:56 Glucose (Fingerstick) 114 mg/dL (70-99) 106 mg/dL (70-99) White Blood Count 2.8 x10^3/uL (4.0-11.0) Red Blood Count 2.64 x10^6/uL (4.30-5.70) Hemoglobin 8.1 g/dL (13.0-17.5) Hematocrit 24.5 % (39.0-53.0) Mean Corpuscular Volume 93 fL (79-100) Mean Corpuscular Hemoglobin 31 pg (25-35) Mean Corpuscular Hemoglobin Concent 33 g/dL (31-37) Red Cell Distribution Width 15.9 % (11.5-14.5) Platelet Count 166 x10^3/uL (140-400) Sodium Level 136 mmol/L (136-145) Potassium Level 4.2 mmol/L (3.5-5.1) Chloride Level 99 mmol/L (98-107) Carbon Dioxide Level 24 mmol/L (21-32) Anion Gap 13 (6-14) Blood Urea Nitrogen 81 mg/dL (8-26) Creatinine 4.7 mg/dL (0.7-1.3) Estimated GFR (Cockcroft-Gault) 12.1 BUN/Creatinine Ratio 17 (6-20) Glucose Level 107 mg/dL (70-99) Lactic Acid Level 0.9 mmol/L (0.4-2.0) Calcium Level 8.9 mg/dL (8.5-10.1) Total Bilirubin 0.4 mg/dL (0.2-1.0) Aspartate Amino Transf (AST/SGOT) 15 U/L (15-37) Alanine Aminotransferase (ALT/SGPT) 13 U/L (16-63) Alkaline Phosphatase 46 U/L (46-116) Total Protein 5.0 g/dL (6.4-8.2) Albumin 2.4 g/dL (3.4-5.0) Albumin/Globulin Ratio 0.9 (1.0-1.7) Objective Assessment pt seen, consult dictated Plan Plan of Care / AP PEACE MD Sep 11, 2019 10:32
--- NOTE | 2019-09-11 10:49 | HP ---
ADMIT DATE: 09/10/2019 HISTORY OF PRESENT ILLNESS: The patient is a 78-year-old male patient, a resident at [facility], who was brought to the Emergency Room on account of having recurrent bouts of diarrhea as well as fever, also history of altered mental status. When he arrived to the Emergency Room, his temperature was 101 Fahrenheit. He has a history of C. diff before and he is on cefdinir 300 mg twice a day as a suppressive therapy for a streptococcal infection with left prosthetic shoulder. He was evaluated in the Emergency Room and his lab work showed that his white cell count was normal; however, his kidney function showed that his BUN and creatinine have dramatically risen to 75 and 4.6. He has received 2 liters of fluid. He was treated also with IV vancomycin and meropenem as HE IS ALLERGIC TO PENICILLIN and was admitted for further evaluation. Stool samples were sent as well as blood and urine for culture and sensitivity. PAST MEDICAL HISTORY: Significant for benign prostatic hypertrophy with bladder outlet obstruction requiring indwelling Bledsoe catheter, hypothyroidism, hypogonadism, neurofibromatosis, type 2 diabetes mellitus, chronic fatigue syndrome, chronic neck pain, lumbago, depression, chronic pain syndrome, chronic renal insufficiency, erectile dysfunction and nocturia. He has also had septic left shoulder prosthesis with an abscess, status post aspiration with growth of group B Streptococcus, which he was treated with IV ceftriaxone for 6 weeks and was switched to oral cefdinir. He was on Keflex; however, he unfortunately developed severe leukopenia. The patient also known to have [place] syndrome with chronic ileus; coronary artery disease, status post coronary artery bypass graft surgery and he has a history also of Clostridium difficile colitis, treated with oral vancomycin and IV Flagyl. PAST SURGICAL HISTORY: Significant for thoracic aortic aneurysm repair. He had also coronary artery bypass graft surgery, previous left shoulder replacement and hand surgery, incision and drainage of the left shoulder abscess and debridement. FAMILY HISTORY: Both parents are . SOCIAL HISTORY: He is , lives with his . 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 He apparently does not smoke, drink alcohol or use any recreational drugs. He has been at [facility] for almost 4 weeks now since he was discharged from [facility] and has been doing extremely well. In fact, was able to walk. ALLERGIES: HE IS ALLERGIC TO PENICILLIN. MEDICATIONS: He is currently on following medications: He was on cefdinir 300 mg twice a day, Flomax 0.4 mg daily, atorvastatin calcium 20 mg at bedtime, fentanyl 50 mcg per hour topically q. 72 hours, hydromorphone 4 mg every 6 hours p.r.n., morphine sulfate 60 mg 3 times a day. He is on lactobacillus acidophilus 1 capsule twice a day, bisacodyl 10 mg suppository rectally daily p.r.n. for constipation, Senna laxative 1 tablet once a day, ondansetron 4 mg ODT 1 tablet every 4 hours as needed, Protonix 40 mg once a day before breakfast, Linzess 145 mcg once a day. He is on Lantus insulin 60 units at bedtime, levothyroxine sodium 175 mcg once a day, B12, Foltx tablet 1 tablet once a day, ascorbic acid 100 mcg once a day, multivitamin 1 tablet once a day, finasteride 5 mg once a day. PHYSICAL EXAMINATION: GENERAL: On arrival to the Emergency Room, the patient looked pale. No jaundice, cyanosis or thyromegaly. No jugular venous distention. Mild bilateral lower limb edema. VITAL SIGNS: His heart rate was 81, blood pressure was 92/45, temperature was 101.1, respiratory rate was 21 and oxygen saturation was 93%. HEAD, EYES, EARS, NOSE AND THROAT: Showed normocephalic, atraumatic. NECK: Supple. HEART: Showed normal first and second heart sounds. No gallop or murmur. CHEST: Clear to auscultation. No crepitation or rhonchi. ABDOMEN: Distended, soft, nontender. No guarding or rigidity. No organomegaly. All hernial orifice intact. Bowel sounds normal. NEUROLOGIC: He is awake, alert, responding appropriately. All cranial nerves intact. He moves his upper extremities to much good extent than lower extremities, mostly bedbound, chair bound. LABORATORY DATA: His lab work on admission showed a serum sodium 133, potassium 4.4, chloride 96, bicarbonate 26, anion gap of 11, BUN 75, creatinine 4.6, estimated GFR was 12.5 mL per minute, glucose 101, calcium was 9.3, lactic acid was 1.1, magnesium was 1.8. Total bilirubin, AST, ALT, alkaline phosphatase were normal. Total protein was 6.2, albumin was 2.7. His prothrombin time was 15.2, INR 1.2, APTT was 47. Urinalysis showed the urine was yellow, clear with a pH of 5, specific gravity of 1.015. The urine was negative for protein, glucose, ketones, blood, nitrite and leukocyte esterase. There are occasional rbc's, 1-4 wbc's, very few bacteria. His influenza A and B were negative. He did have a CT scan, had a chest x-ray, which basically showed that the patient has left retrocardiac airspace disease, may be pneumonia. Additionally, appears to be dislocation of left humeral prosthesis. There is also poor visualization of the bony cortex of the proximal humerus. Recommend dedicated shoulder imaging for further evaluation of both findings. He did have a CT scan of the abdomen and pelvis, which showed that he has pancolitis with diffuse wall thickening and adjacent inflammatory changes throughout the colon. Findings are nonspecific, may be infectious, inflammatory, and umbilical hernia, which contains a short segment of small bowel. No evidence of obstruction, has numerous hypoattenuating lesions within the kidneys bilaterally, incompletely and umbilical hernia, which contains a short segment of small bowel with no evidence of obstruction, numerous hypoattenuating lesion within the kidneys bilaterally, incompletely characterized on noncontrast exam, trace bilateral pleural effusion with adjacent atelectasis. ASSESSMENT AND PLAN: In summary, this is a 78-year-old male patient who has infected prosthetic left shoulder with growth of group B Streptococcus, which he has received IV antibiotic in the form of ceftriaxone for 6 weeks. He is now on suppressive therapy in the form of cefdinir 300 mg twice a day. He developed leukopenia and he was on Keflex. Initially, he is known to have history of C. diff colitis and he is coming with recurrent bouts of nausea and vomiting. CT scan showed he has pancolitis, likely due to Clostridium difficile infection. He has also acute on chronic kidney injury with BUN and creatinine of 75 and 4.1. His baseline creatinine is about 1.4. My plan is to aggressively rehydrate him and continue with IV meropenem and vancomycin. I will start him on oral vancomycin. We will check his lab work daily and we will consult the Infectious Disease as well as the Nephrology if his kidney function continued to worsen. KERI DIGGS MD DR: Alexx JOB#: [id number] / [id number]
[2019-09-11 11:00] VITALS: BP 96/44
--- NOTE | 2019-09-11 11:22 | CONS ---
DATE OF CONSULTATION: 09/11/2019 REQUESTING PHYSICIAN: Venkata Hancock MD REASON FOR CONSULTATION: Colitis and diarrhea. HISTORY OF PRESENT ILLNESS: This is a 78-year-old gentleman with history of prolonged hospital course 2 months ago, including he had an even palliative care consult done. Eventually, the patient improved and from [facility], he ended up in nursing facility. The patient has been sent in from a nursing facility with 3 bouts of diarrhea, had a fever and not feeling well. The patient was noted to have a CT showing colitis. The patient's C. diff has been ordered and is pending. The patient has not had any fever here. The patient denies any nausea, vomiting. Denies any headache, visual symptoms, chest pain, or abdominal pain. PAST MEDICAL HISTORY: Positive for diabetes mellitus, hypothyroidism, neurofibromatosis with surgery done on the right hand, history of depression, renal insufficiency, history of left shoulder prosthesis dislocation, history of Clostridium difficile, coronary artery disease, hypertension, thoracic aneurysm repair done, Mal[place] syndrome. Also had left shoulder infection with group B strep, I and D was done on last admission. SOCIAL HISTORY: Negative for smoking, alcohol or drug use. The patient is now a residential resident. ALLERGIES: LISTED ALLERGIC TO PENICILLIN. CURRENT MEDICATIONS: Reviewed. The patient was on cefdinir at the residential, he does not know why. REVIEW OF SYSTEMS: As per HPI, all other systems reviewed are negative. PHYSICAL EXAMINATION: GENERAL: Alert, oriented gentleman, not in distress. VITAL SIGNS: Stable with T-max 100.3, pulse 77, respirations 20, blood pressure 90/45. HEENT: Both pupils are round and reacting. No conjunctival lesion, no lesion in the mouth. NECK: Supple, no JVP, no lymphadenopathy. LUNGS: Clear. HEART: S1, S2 regular. ABDOMEN: Nontender. No organomegaly, rebound or guarding. EXTREMITIES: Mild pitting edema present. Left calcaneal has a small wound. NEUROLOGIC: The patient neurologically is alert, awake, able to move all the extremities, but very weak and debilitated. LABORATORY DATA: White count is 2.8, hemoglobin 8.1, platelets are 166,000. BUN and creatinine is [address] and pelvic CT showed pancolitis, multiple hypoattenuating lesions in the kidney, umbilical hernia. IMPRESSION: 1. Pancolitis with diarrhea, most likely to be Clostridium difficile. Other reasons for colitis needs to be ruled out if Clostridium difficile is negative. 2. Low grade fever. 3. Acute on chronic renal failure. 4. Most likely dehydration. 5. Dislocated shoulder with infection with group B strep in the past. 6. Coronary artery disease. 7. Debility and self-care problem. RECOMMENDATIONS: I would not give IV vancomycin, we will continue p.o. vancomycin. Continue meropenem for the time being until we have more information's available and did not give IV vancomycin. Also, there is no need for azithromycin. Supportive care will check the cultures and the C. diff results and we will continue to follow. Thank you very much, Dr. Hancock, for giving me the opportunity to participate in this patient's care. AP PEACE MD DR: BRIAN/chastity JOB#: [id number] / [id number]
--- NOTE | 2019-09-11 11:54 | NUR ---
Pharmacy Medication Review S: Consulted for medication review re: C.diff Risk Assessment score of 8 O: ROSLYN MOORE is a 78 year old with: Previous C.diff infection: <1yr ago Previous hospitalization: Within 30 days Recent antibiotics: Within 30 days Use of gastric acid suppressor: No Transfer from [facility]: Yes Current antibiotic regimen: PER ID Current acid suppression regimen: PANTOPRAZOLE A: Patient has been identified as having risk factors for C.diff infection as noted above. P: ABX DE-ESCALATION RECOMMENDED: NO, PT HAS CHRONIC INFECTION AND IS ON SUPPRESSIVE THERAPY PROBIOTIC ORDERED: YES PPI CHANGED TO [id number]: YES, NO GERD DOCUMENTED AMBER KEENE [facility], 09/11/19 [id number]
[2019-09-11] MEDS: VANCOMYCIN 125 MG/2.5 ML ORAL SOLUTION. PO SCH ×3 (13:30→20:52)
[2019-09-11 15:00] VITALS: BP 122/55
[2019-09-11] MEDS: HYDROmorphone 2 MG/ML VIAL IVP PRN ×2 (15:09→18:15)
--- NOTE | 2019-09-11 15:47 | NUR ---
Wound Care: Wound care consult for PU to the left heel. Stage 3 PU on Left heel cleansed and dressed with iodoflex and foam. No other wound noted upon head to toe skin assessment. Wound care recommendations to change every 3 days, recommendations left in room. Wound care will follow up on 09/19/19.
[2019-09-11 19:10] VITALS: BP 104/50
[2019-09-11] MEDS: INSULIN GLARGINE SYRINGE. SQ SCH (21:00)
[2019-09-11 23:31] VITALS: BP 135/56
[2019-09-12 03:30] VITALS: BP 122/49
[2019-09-12] MEDS: IV NORMAL SALINE 1000ML BAG 1,000 ML IV SCH ×3 (04:00→19:23)
[2019-09-12] MEDS: HYDROmorphone 2 MG/ML VIAL IVP PRN ×6 (04:00→23:18)
[2019-09-12 04:19] LABS: CALCIUM 8.7 mg/dL (8.5-10.1); CREATININE 4.8 mg/dL (0.7-1.3); GFR 11.9; POTASSIUM 4.1 mmol/L (3.5-5.1)
[2019-09-12] MEDS: LEVOTHYROXINE 100 MCG TABLET PO SCH (06:45)
[2019-09-12 07:00] VITALS: BP 98/38
--- NOTE | 2019-09-12 07:55 | NUR ---
Chart review done and spoke w/ RN. [facility]. RN feels pt may benefit from PT/OT Eval and Treat. Please write orders if agree. Addendum: 09/12/19 at 0756 by DONOVAN KIDD OT Amended: Links added.
[2019-09-12] MEDS: NON FORMULARY ITEM (Methylnaltrexone Bromide (Relistor) 150 MG) PO SCH (09:00)
[2019-09-12] MEDS: FINASTERIDE 5 MG TABLET. PO SCH (09:12)
[2019-09-12] MEDS: LUBIPROSTONE 24 MCG CAPSULE PO SCH ×2 (09:12→17:00)
[2019-09-12] MEDS: TAMSULOSIN 0.4 MG CAP.ER.24H. PO SCH (09:12)
[2019-09-12] MEDS: LACTOBACILLUS RHAMNOSUS GG 1 CAPSULE. PO SCH ×2 (09:12→22:09)
[2019-09-12] MEDS: SENNOSIDES 8.6 MG TABLET PO SCH (09:13)
[2019-09-12] MEDS: MORPHINE ER 30 MG TABLET.ER PO SCH ×3 (09:13→22:09)
[2019-09-12] MEDS: MULTIVITAMIN with MINERAL TABLET. PO SCH (09:13)
[2019-09-12] MEDS: VANCOMYCIN 125 MG/2.5 ML ORAL SOLUTION. PO SCH ×4 (09:13→22:07)
[2019-09-12] MEDS: ATORVASTATIN CALCIUM 20 MG TABLET PO SCH (09:13)
[2019-09-12] MEDS: ASCORBIC ACID 500 MG TABLET PO SCH (09:13)
[2019-09-12] MEDS: MEROPENEM 500 MG in IV NORMAL SALINE 50ML 50 ML IV SCH (09:14)
[2019-09-12] MEDS: INSULIN LISPRO 300 UNITS/3 ML VIAL. SQ SCH ×3 (09:26→17:00)
--- NOTE | 2019-09-12 10:12 | PDOC ---
Infectious Disease Note Subjective Subjective pt is feeling better, only one BM today ROS ROS no n/v/sob/fever Vital Sign Vital Signs Vital Signs Date Time Temp Pulse Resp B/P (MAP) Pulse Ox O2 Delivery O2 Flow Rate FiO2 09/12/19 09:13 Room Air 09/12/19 07:00 98.1 90 16 98/38 (58) 93 98.1 Physical Exam PHYSICAL EXAM GENERAL: Alert, oriented gentleman, not in distress. VITAL SIGNS: Stable HEENT: Both pupils are round and reacting. No conjunctival lesion, no lesion in the mouth. NECK: Supple, no JVP, no lymphadenopathy. LUNGS: Clear. HEART: S1, S2 regular. ABDOMEN: Nontender. No organomegaly, rebound or guarding. EXTREMITIES: Mild pitting edema present. Left calcaneal has a small wound. NEUROLOGIC: The patient neurologically is alert, awake, able to move all the extremities, but very weak and debilitated. Labs Lab Laboratory Tests Test 09/11/19 11:23 09/11/19 15:51 09/11/19 17:38 09/11/19 20:27 Glucose (Fingerstick) 180 mg/dL (70-99) 149 mg/dL (70-99) 155 mg/dL (70-99) 151 mg/dL (70-99) Test 09/12/19 03:00 09/12/19 07:42 Sodium Level 135 mmol/L (136-145) Potassium Level 4.1 mmol/L (3.5-5.1) Chloride Level 99 mmol/L (98-107) Carbon Dioxide Level 20 mmol/L (21-32) Anion Gap 16 (6-14) Blood Urea Nitrogen 83 mg/dL (8-26) Creatinine 4.8 mg/dL (0.7-1.3) Estimated GFR (Cockcroft-Gault) 11.9 Glucose Level 242 mg/dL (70-99) Calcium Level 8.7 mg/dL (8.5-10.1) Thyroid Stimulating Hormone (TSH) 3.235 uIU/mL (0.358-3.74) Glucose (Fingerstick) 288 mg/dL (70-99) Micro Microbiology 09/11/19 Blood Culture - Preliminary, Resulted NO GROWTH AFTER 1 DAY Objective Assessment 1. Pancolitis with diarrhea, most likely to be Clostridium difficile. Other reasons for colitis needs to be ruled out if Clostridium difficile is negative. 2. Low grade fever. 3. Acute on chronic renal failure. 4. Most likely dehydration. 5. Dislocated shoulder with infection with group B strep in the past. 6. Coronary artery disease. 7. Debility and self-care problem. Plan Plan of Care c diff is still pending continue po vanc d/c meropenem AP PEACE MD Sep 12, 2019 10:12
[2019-09-12 11:00] VITALS: BP 101/56
--- NOTE | 2019-09-12 11:03 | NUR ---
Late Entry: AUDREY spoke with Geena at [facility], phone: [phone], fax: [phone] on 09/11 and pt is [facility] resident, is able to return upon dc. Pt will benefit from PT/OT eval and Tx order. SW will continue to follow pt.
--- NOTE | 2019-09-12 12:03 | PDOC2 ---
CONSULT Date of Consult Date of Consult DATE: 09/12/19 TIME: 11:56 Reason for Consult Reason for Consult: RENATA Referring Physician Referring Physician: CATERINA Identification/Chief Complaint Chief Complaint DIARRHEA AND FEVERS History of Present Illness Reason for Visit: THIS IS A 78 YR OLD WITH DIARRHEA AND NOW DX WITH C DIF. HAS A TEMP OF 101. HAS A CR OF 4.7. HAS HAS PROGRESSIVE CKD WITH CR OF ABOUT 2.5 AT BASELINE WHEN LAST HERE. ALSO HAS HX OF URINARY RETENTION IN THE PAST. HE HAS HAD A MORA IN PLACE AND HAS BEEN ON FLOMAX. ID EVAL IS ONGOING AT THIS TIME. PER HE HAS HAD VOLUMINOUS DIARRHEA FOR DAYS Past Medical History Cardiovascular: CAD, HTN, Hyperlipidemia, Other Pulmonary: Other CENTRAL NERVOUS SYSTEM: Other GI: Other Hepatobiliary: No pertinent hx Psych: Depression Musculoskeletal: Other Renal/: Chronic renal insuff, Acute renal failure, Benign prostatic enlarg. Endocrine: Diabetes, Hypothyroidism Past Surgical History Past Surgical History: Arthroscopy, CABG, Other Family History Family History: Family History Unknown Social History ALCOHOL: none Drugs: None Lives: with Family Current Problem List Problem List Problems Medical Problems: (1) RENATA (acute kidney injury) Status: Acute (2) Diarrhea Status: Acute (3) Pneumonia Status: Acute Current Medications Current Medications Current Medications Sodium Chloride 1,000 ml @ 1,000 mls/hr 1X ONCE IV Last administered on 09/10/19at 15:30; Start 09/10/19 at 15:00; Stop 09/10/19 at 15:59; Status DC Sodium Chloride 1,000 ml @ 100 mls/hr 1X STAT IV Last administered on 09/10/19at 17:55; Start 09/10/19 at 17:12; Stop 09/11/19 at 03:11; Status DC Ceftriaxone Sodium (Rocephin) 1 gm 1X STAT IVP ; Start 09/10/19 at 17:12; Stop 09/10/19 at 17:13; Status UNV Azithromycin 250 ml @ 250 mls/hr 1X STAT IV Last administered on 09/10/19at 17:12; Start 09/10/19 at 17:12; Stop 09/10/19 at 18:11; Status DC Meropenem 500 mg/ Sodium Chloride 50 ml @ 100 mls/hr Q12HR IV Last administered on 09/12/19at 09:14; Start 09/10/19 at 22:00; Stop 09/12/19 at 10:19; Status DC Vancomycin HCl (Vanco Per Pharmacy) 1 each PRN DAILY STAT [facility] ; Start 09/10/19 at 17:31; Stop 09/10/19 at 17:35; Status DC Vancomycin HCl 1.5 gm/Sodium Chloride 500 ml @ 250 mls/hr 1X ONCE IV Last administered on 09/10/19at 19:37; Start 09/10/19 at 17:45; Stop 09/10/19 at 19:44; Status DC Meropenem 500 mg/ Sodium Chloride 50 ml @ 100 mls/hr 1X ONCE IV Last administered on 09/10/19at 17:56; Start 09/10/19 at 17:45; Stop 09/10/19 at 18:14; Status DC Pharmacy Consult (C.diff Med Screen By Rx) 1 each 1X ONCE MC Last administered on 09/10/19at 22:30; Start 09/10/19 at 22:30; Stop 09/10/19 at 22:31; Status DC Finasteride (Proscar) 5 mg DAILY PO Last administered on 09/12/19at 09:12; Start 09/11/19 at 09:00 Levothyroxine Sodium (Synthroid) 200 mcg DAILY06 PO Last administered on 09/12/19at 06:45; Start 09/11/19 at 06:00 Atorvastatin Calcium (Lipitor) 20 mg DAILY PO Last administered on 09/12/19at 09:13; Start 09/11/19 at 09:00 Bisacodyl (Dulcolax Supp) 10 mg PRN DAILY PRN RC CONSTIPATION 1ST CHOICE; Start 09/10/19 at 23:30 Fentanyl (Duragesic 50mcg/ Hr Patch) 1 patch Q3DAYS TD ; Start 09/13/19 at 09:00 Hydromorphone HCl (Dilaudid) 4 mg PRN Q6HRS PRN PO SEVERE PAIN 7-10 Last administered on 09/11/19at 09:45; Start 09/10/19 at 23:30; Stop 09/11/19 at 13:10; Status DC Pantoprazole Sodium (Protonix) 40 mg DAILYAC PO Last administered on 09/11/19at 08:28; Start 09/11/19 at 07:30; Stop 09/11/19 at 11:47; Status DC Sennosides (Senna) 8.6 mg DAILY PO Last administered on 09/12/19 09:13; Start 09/11/19 at 09:00 Tamsulosin HCl (Flomax) 0.4 mg DAILY PO Last administered on 09/12/19 09:12; Start 09/11/19 at 09:00 Ascorbic Acid (Vitamin C) 500 mg DAILY PO Last administered on 09/12/19 09:13; Start 09/11/19 at 09:00 Insulin Glargine (Lantus Syringe) 16 unit QHS SQ ; Start 09/11/19 at 21:00 Lactobacillus Rhamnosus (Culturelle) 1 cap BID PO Last administered on 09/12/19 09:12; Start 09/11/19 at 09:00 Lubiprostone (Amitiza) 24 mcg BIDWMEALS PO Last administered on 09/12/19 09:12; Start 09/11/19 at 08:00 Non-Formulary Medication (Methylnaltrexone [place] (Relistor)) 150 mg DAILY PO ; Start 09/11/19 at 09:00; Status UNV Morphine Sulfate (Ms Contin) 60 mg TID PO Last administered on 09/12/19 09:13; Start 09/11/19 at 09:00 Multivitamins (Thera M Plus) 1 tab DAILY PO Last administered on 09/12/19 09:13; Start 09/11/19 at 09:00 Ondansetron HCl (Zofran Odt) 4 mg PRN Q8HRS PRN PO NAUSEA/VOMITING 1ST CHOICE; Start 09/10/19 at 23:45 Cefdinir (Omnicef) 300 mg BID PO ; Start 09/11/19 at 09:00; Status UNV Insulin Human Lispro (HumaLOG) 0-9 UNITS TIDWMEALS SQ Last administered on 09/12/19at 11:51; Start 09/11/19 at 08:00 Dextrose (Dextrose 50%-Water Syringe) 12.5 gm PRN Q15MIN PRN IV SEE COMMENTS; Start 09/10/19 at 23:45 Acetaminophen (Tylenol) 650 mg PRN Q6HRS PRN PO fever Last administered on 09/11/19at 05:36; Start 09/11/19 at 05:30 Sodium Chloride 1,000 ml @ 1,000 mls/hr 1X ONCE IV Last administered on 09/11/19at 09:15; Start 09/11/19 at 09:15; Stop 09/11/19 at 10:14; Status DC Sodium Chloride 1,000 ml @ 150 mls/hr Q6H40M IV Last administered on 09/11/19at 09:15; Start 09/11/19 at 09:15; Stop 09/11/19 at 15:57; Status DC Vancomycin HCl (Vanco Per Pharmacy) 1 each PRN DAILY PRN MC SEE COMMENTS; Start 09/11/19 at 09:15; Stop 09/11/19 at 12:49; Status DC Vancomycin HCl (Vancomycin Oral Solution) 125 mg [id number] PO Last administered on 09/12/19at 09:13; Start 09/11/19 at 13:00 Sodium Chloride 1,000 ml @ 150 mls/hr Q6H40M IV Last administered on 09/12/19at 11:40; Start 09/11/19 at 09:15 Famotidine (Pepcid) 20 mg QHS PO ; Start 09/12/19 at 21:00 Hydromorphone HCl (Dilaudid) 2 mg PRN Q3HRS PRN IVP PAIN Last administered on 09/12/19at 11:41; Start 09/11/19 at 13:15 Active Scripts Active Reported Zofran (Ondansetron Hcl) 4 Mg Tablet 1 Tab PO Q4HRS PRN Vitamin C (Ascorbic Acid) 100 Mg Tablet 1 Tab PO DAILY 30 Days Flomax (Tamsulosin Hcl) 0.4 Mg Cap.er.24h 1 Cap PO DAILY Senna Laxative (Sennosides) 8.6 Mg Tablet 8.6 Mg PO DAILY Relistor (Methylnaltrexone [place]) 150 Mg Tablet 150 Mg PO DAILY Pantoprazole Sodium (Pantoprazole Sodium) 40 Mg Tablet.dr 40 Mg PO DAILYAC Multi Vitamin Daily (Multivitamin) 1 Each Tablet 1 Tab PO DAILY 30 Days Morphine Sulfate 30 Mg Tablet 2 Tab PO TID Linzess (Linaclotide) 145 Mcg Capsule 145 Mcg PO DAILY07 Lantus Solostar (Insulin Glargine,Hum.rec.anlog) 100 Unit/1 Ml Insuln.pen 16 Unit SQ QHS Hydromorphone Hcl 4 Mg Tablet 4 Mg PO PRN Q6HRS PRN DURAGESIC 50mcg/hr (Fentanyl) 1 Each Patch.td72 1 Patch TP Q3DAYS MDD 0.33 Patch(s) Bisacodyl 10 Mg Supp.rect 10 Mg RC PRN DAILY PRN Cefdinir 300 Mg Capsule 1 Cap PO BID Acidophilus (Lactobacillus Acidophilus) 1 Each Capsule 1 Cap PO BID Atorvastatin Calcium 20 Mg Tablet 1 Tab PO DAILY Foltx Tablet (B12/Levomefolate Calcium/B-6) 1 Each Tablet 1 Each PO AFTRNOON Finasteride 5 Mg Tablet 1 Tab PO DAILY Levothyroxine Sodium 175 Mcg Tablet 1 Tab PO DAILY Allergies Allergies: Coded Allergies: Penicillins (Verified Allergy, Intermediate, 06/14/19) tapentadol (Verified Allergy, Intermediate, 06/14/19) Iodinated Contrast Media (Verified Adverse Reaction, Intermediate, 09/10/19) ROS Review of System UNABLE TO OBTAIN, CONFUSED Physical Exam General: Cooperative, No acute distress HEENT: EOMI, Other (DRY MUCOSA) Heart: Regular rate Abdomen: Normal bowel sounds, Soft Extremities: No clubbing, No edema Skin: No rashes Neuro: Other (CONFUSED) Psych/Mental Status: Other (CONFUSED) MUSCULOSKELETAL: No joint tenderness, No deformity, No swelling Vitals VITALS Vital Signs Date Time Temp Pulse Resp B/P (MAP) Pulse Ox O2 Delivery O2 Flow Rate FiO2 09/12/19 11:41 93 Room Air 09/12/19 07:00 98.1 90 16 98/38 (58) 98.1 Labs Labs Laboratory Tests Test 09/10/19 14:42 09/10/19 15:05 09/10/19 15:30 09/10/19 22:06 Glucose (Fingerstick) 104 mg/dL (70-99) White Blood Count 4.5 x10^3/uL (4.0-11.0) Red Blood Count 2.89 x10^6/uL (4.30-5.70) Hemoglobin 8.9 g/dL (13.0-17.5) Hematocrit 26.7 % (39.0-53.0) Mean Corpuscular Volume 92 fL (79-100) Mean Corpuscular Hemoglobin 31 pg (25-35) Mean Corpuscular Hemoglobin Concent 34 g/dL (31-37) Red Cell Distribution Width 15.9 % (11.5-14.5) Platelet Count 195 x10^3/uL (140-400) Neutrophils (%) (Auto) 70 % (31-73) Lymphocytes (%) (Auto) 10 % (24-48) Monocytes (%) (Auto) 20 % (0-9) Eosinophils (%) (Auto) 0 % (0-3) Basophils (%) (Auto) 0 % (0-3) Neutrophils # (Auto) 3.1 x10^3/uL (1.8-7.7) Lymphocytes # (Auto) 0.4 x10^3/uL (1.0-4.8) Monocytes # (Auto) 0.9 x10^3/uL (0.0-1.1) Eosinophils # (Auto) 0.0 x10^3/uL (0.0-0.7) Basophils # (Auto) 0.0 x10^3/uL (0.0-0.2) Segmented Neutrophils % 25 % (35-66) Band Neutrophils % 46 % (0-9) Lymphocytes % 10 % (24-48) Monocytes % 18 % (0-10) Metamyelocytes % 1 % (0-0) Dohle Bodies Few Platelet Estimate Adequate (ADEQUATE) Ovalocytes Few Prothrombin Time 15.2 SEC (11.7-14.0) Prothromb Time International Ratio 1.2 (0.8-1.1) Activated Partial Thromboplast Time 47 SEC (24-38) Sodium Level 133 mmol/L (136-145) Potassium Level 4.4 mmol/L (3.5-5.1) Chloride Level 96 mmol/L (98-107) Carbon Dioxide Level 26 mmol/L (21-32) Anion Gap 11 (6-14) Blood Urea Nitrogen 75 mg/dL (8-26) Creatinine 4.6 mg/dL (0.7-1.3) Estimated GFR (Cockcroft-Gault) 12.5 BUN/Creatinine Ratio 16 (6-20) Glucose Level 101 mg/dL (70-99) Lactic Acid Level 1.1 mmol/L (0.4-2.0) Calcium Level 9.3 mg/dL (8.5-10.1) Magnesium Level 1.8 mg/dL (1.8-2.4) Total Bilirubin 0.6 mg/dL (0.2-1.0) Aspartate Amino Transf (AST/SGOT) 14 U/L (15-37) Alanine Aminotransferase (ALT/SGPT) 11 U/L (16-63) Alkaline Phosphatase 50 U/L (46-116) Total Protein 6.2 g/dL (6.4-8.2) Albumin 2.7 g/dL (3.4-5.0) Albumin/Globulin Ratio 0.8 (1.0-1.7) Influenza Type A Antigen Negative (NEGATIVE) Influenza Type B Antigen Negative (NEGATIVE) Urine Collection Type Unknown Urine Color Yellow Urine Clarity Clear Urine pH 5.0 Urine Specific [place] 1.015 Urine Protein Negative mg/dL (NEG-TRACE) Urine Glucose (UA) Negative mg/dL (NEG) Urine Ketones (Stick) Negative mg/dL (NEG) Urine Blood Negative (NEG) Urine Nitrite Negative (NEG) Urine Bilirubin Negative (NEG) Urine Urobilinogen Dipstick 0.2 mg/dL (0.2 mg/dL) Urine Leukocyte Esterase Negative (NEG) Urine RBC Occ /HPF (0-2) Urine WBC 1-4 /HPF (0-4) Urine Squamous Epithelial Cells Occ /LPF Urine Transitional Epithelial Cells Occ /LPF Urine Amorphous Sediment Present /HPF Urine Bacteria Few /HPF (0-FEW) Urine Hyaline Casts Few /HPF Urine Mucus Slight /LPF Test 09/11/19 00:18 09/11/19 05:55 09/11/19 07:56 09/11/19 11:23 Glucose (Fingerstick) 114 mg/dL (70-99) 106 mg/dL (70-99) 180 mg/dL (70-99) White Blood Count 2.8 x10^3/uL (4.0-11.0) Red Blood Count 2.64 x10^6/uL (4.30-5.70) Hemoglobin 8.1 g/dL (13.0-17.5) Hematocrit 24.5 % (39.0-53.0) Mean Corpuscular Volume 93 fL (79-100) Mean Corpuscular Hemoglobin 31 pg (25-35) Mean Corpuscular Hemoglobin Concent 33 g/dL (31-37) Red Cell Distribution Width 15.9 % (11.5-14.5) Platelet Count 166 x10^3/uL (140-400) Sodium Level 136 mmol/L (136-145) Potassium Level 4.2 mmol/L (3.5-5.1) Chloride Level 99 mmol/L (98-107) Carbon Dioxide Level 24 mmol/L (21-32) Anion Gap 13 (6-14) Blood Urea Nitrogen 81 mg/dL (8-26) Creatinine 4.7 mg/dL (0.7-1.3) Estimated GFR (Cockcroft-Gault) 12.1 BUN/Creatinine Ratio 17 (6-20) Glucose Level 107 mg/dL (70-99) Lactic Acid Level 0.9 mmol/L (0.4-2.0) Calcium Level 8.9 mg/dL (8.5-10.1) Total Bilirubin 0.4 mg/dL (0.2-1.0) Aspartate Amino Transf (AST/SGOT) 15 U/L (15-37) Alanine Aminotransferase (ALT/SGPT) 13 U/L (16-63) Alkaline Phosphatase 46 U/L (46-116) Total Protein 5.0 g/dL (6.4-8.2) Albumin 2.4 g/dL (3.4-5.0) Albumin/Globulin Ratio 0.9 (1.0-1.7) Test 09/11/19 15:51 09/11/19 17:38 09/11/19 20:27 09/12/19 03:00 Glucose (Fingerstick) 149 mg/dL (70-99) 155 mg/dL (70-99) 151 mg/dL (70-99) Sodium Level 135 mmol/L (136-145) Potassium Level 4.1 mmol/L (3.5-5.1) Chloride Level 99 mmol/L (98-107) Carbon Dioxide Level 20 mmol/L (21-32) Anion Gap 16 (6-14) Blood Urea Nitrogen 83 mg/dL (8-26) Creatinine 4.8 mg/dL (0.7-1.3) Estimated GFR (Cockcroft-Gault) 11.9 Glucose Level 242 mg/dL (70-99) Calcium Level 8.7 mg/dL (8.5-10.1) Thyroid Stimulating Hormone (TSH) 3.235 uIU/mL (0.358-3.74) Test 09/12/19 07:42 09/12/19 11:42 Glucose (Fingerstick) 288 mg/dL (70-99) 276 mg/dL (70-99) Laboratory Tests Test 09/11/19 15:51 09/11/19 17:38 09/11/19 20:27 09/12/19 03:00 Glucose (Fingerstick) 149 mg/dL (70-99) 155 mg/dL (70-99) 151 mg/dL (70-99) Sodium Level 135 mmol/L (136-145) Potassium Level 4.1 mmol/L (3.5-5.1) Chloride Level 99 mmol/L (98-107) Carbon Dioxide Level 20 mmol/L (21-32) Anion Gap 16 (6-14) Blood Urea Nitrogen 83 mg/dL (8-26) Creatinine 4.8 mg/dL (0.7-1.3) Estimated GFR (Cockcroft-Gault) 11.9 Glucose Level 242 mg/dL (70-99) Calcium Level 8.7 mg/dL (8.5-10.1) Thyroid Stimulating Hormone (TSH) 3.235 uIU/mL (0.358-3.74) Test 09/12/19 07:42 09/12/19 11:42 Glucose (Fingerstick) 288 mg/dL (70-99) 276 mg/dL (70-99) Assessment/Plan Assessment/Plan IMP RENATA-ATN-CR OF 4.7 CKD STAGE 3B TO 4 WITH CR OF ABOUT 2.5 DEHYDRATION DIARRHEA WITH C DIF URINARY RETENTION HX MET ENCEPHALOPATHY MET ACIDOSIS-MILD PLAN HYDRATION ANTIBIOTICS UPDATED MAY NEED HD IF CLEARANCE DOES NOT IMPROVE WILL FOLLOW DEREJE VOGEL MD Sep 12, 2019 12:03
[2019-09-12 15:00] VITALS: BP 144/64
[2019-09-12 19:15] VITALS: BP 123/46
--- NOTE | 2019-09-12 22:07 | PN ---
DATE: 09/12/2019 SUBJECTIVE: 1. The patient is resting, slightly propped up in bed, in no apparent distress. On questioning him, he denied any complaint, stated generally feeling better. Unfortunately, his kidney function continued to be high. His stool came positive for Clostridium difficile toxin. However, his influenza A and B were negative. So far, his blood cultures are negative. The patient was seen by the Infectious Disease specialist and he discontinued meropenem. 2. Acute on chronic kidney injury, likely secondary to dehydration and diarrhea as well as urinary retention. PLAN: Plan is to continue with oral vancomycin. Continue with IV fluid. He has an indwelling Bledsoe catheter, we will monitor his lab work on a daily basis. If the kidney function continued to deteriorate, he might require hemodialysis. Other medical problems include type 2 diabetes mellitus, seems to be reasonably controlled. Hypothyroidism seems to be both clinically and biochemically euthyroid. KERI DIGGS MD DR: PAIGE/chastity JOB#: [id number] / [id number]
[2019-09-12] MEDS: FAMOTIDINE 20 MG TABLET. PO SCH (22:09)
[2019-09-12] MEDS: INSULIN GLARGINE SYRINGE. SQ SCH (22:16)
[2019-09-12 23:35] VITALS: BP 129/56
[2019-09-13] MEDS: IV NORMAL SALINE 1000ML BAG 1,000 ML IV SCH ×4 (02:01→21:15)
[2019-09-13 03:42] VITALS: BP 134/62
[2019-09-13 04:36] LABS: HEMATOCRIT 26.3 % (39.0-53.0); HEMOGLOBIN 8.8 g/dL (13.0-17.5); RED BLOOD COUNT 2.81 x10^6/uL (4.30-5.70); RED CELL DISTRIBUTION WIDTH 15.9 % (11.5-14.5); WHITE BLOOD COUNT 5.6 x10^3/uL (4.0-11.0)
[2019-09-13 04:56] LABS: ALBUMIN 2.2 g/dL (3.4-5.0); ALBUMIN/GLOBULIN RATIO 0.6 (1.0-1.7); CALCIUM 8.8 mg/dL (8.5-10.1); GFR 11.3; PHOSPHORUS 5.8 mg/dL (2.6-4.7); TOTAL BILIRUBIN 0.4 mg/dL (0.2-1.0); TOTAL PROTEIN 5.6 g/dL (6.4-8.2)
[2019-09-13] MEDS: HYDROmorphone 2 MG/ML VIAL IVP PRN ×4 (05:52→20:44)
[2019-09-13] MEDS: LEVOTHYROXINE 100 MCG TABLET PO SCH (05:53)
[2019-09-13 07:00] VITALS: BP 130/57
[2019-09-13] MEDS: TAMSULOSIN 0.4 MG CAP.ER.24H. PO SCH (08:46)
[2019-09-13] MEDS: MULTIVITAMIN with MINERAL TABLET. PO SCH (08:46)
[2019-09-13] MEDS: FINASTERIDE 5 MG TABLET. PO SCH (08:46)
[2019-09-13] MEDS: ASCORBIC ACID 500 MG TABLET PO SCH (08:46)
[2019-09-13] MEDS: LUBIPROSTONE 24 MCG CAPSULE PO SCH ×2 (08:46→17:23)
[2019-09-13] MEDS: ATORVASTATIN CALCIUM 20 MG TABLET PO SCH (08:46)
[2019-09-13] MEDS: LACTOBACILLUS RHAMNOSUS GG 1 CAPSULE. PO SCH ×2 (08:46→20:53)
[2019-09-13] MEDS: MORPHINE ER 30 MG TABLET.ER PO SCH ×3 (08:46→20:52)
[2019-09-13] MEDS: SENNOSIDES 8.6 MG TABLET PO SCH (08:46)
[2019-09-13] MEDS: fentaNYL 50MCG/HR PATCH 1 PATCH PATCH.TD72 TD SCH (08:47)
[2019-09-13] MEDS: VANCOMYCIN 125 MG/2.5 ML ORAL SOLUTION. PO SCH ×4 (08:47→20:52)
[2019-09-13] MEDS: INSULIN LISPRO 300 UNITS/3 ML VIAL. SQ SCH ×3 (08:55→17:00)
--- NOTE | 2019-09-13 10:04 | PDOC ---
Infectious Disease Note Subjective Subjective pt is feeling better, ROS ROS NO N/V/, two BM today Vital Sign Vital Signs Vital Signs Date Time Temp Pulse Resp B/P (MAP) Pulse Ox O2 Delivery O2 Flow Rate FiO2 09/13/19 08:47 95 Room Air 09/13/19 07:00 98.2 75 18 130/57 (81) 98.2 Physical Exam PHYSICAL EXAM GENERAL: Alert, oriented gentleman, not in distress. VITAL SIGNS: Stable HEENT: Both pupils are round and reacting. No conjunctival lesion, no lesion in the mouth. NECK: Supple, no JVP, no lymphadenopathy. LUNGS: Clear. HEART: S1, S2 regular. ABDOMEN: Nontender. No organomegaly, rebound or guarding. EXTREMITIES: Mild pitting edema present. Left calcaneal has a small wound. NEUROLOGIC: The patient neurologically is alert, awake, able to move all the extremities, but very weak and debilitated. Labs Lab Laboratory Tests Test 09/12/19 11:42 09/12/19 16:40 09/12/19 20:43 09/13/19 03:20 Glucose (Fingerstick) 276 mg/dL (70-99) 190 mg/dL (70-99) 269 mg/dL (70-99) White Blood Count 5.6 x10^3/uL (4.0-11.0) Red Blood Count 2.81 x10^6/uL (4.30-5.70) Hemoglobin 8.8 g/dL (13.0-17.5) Hematocrit 26.3 % (39.0-53.0) Mean Corpuscular Volume 94 fL (79-100) Mean Corpuscular Hemoglobin 31 pg (25-35) Mean Corpuscular Hemoglobin Concent 34 g/dL (31-37) Red Cell Distribution Width 15.9 % (11.5-14.5) Platelet Count 231 x10^3/uL (140-400) Sodium Level 135 mmol/L (136-145) Potassium Level 4.0 mmol/L (3.5-5.1) Chloride Level 99 mmol/L (98-107) Carbon Dioxide Level 20 mmol/L (21-32) Anion Gap 16 (6-14) Blood Urea Nitrogen 96 mg/dL (8-26) Creatinine 5.0 mg/dL (0.7-1.3) Estimated GFR (Cockcroft-Gault) 11.3 BUN/Creatinine Ratio 19 (6-20) Glucose Level 309 mg/dL (70-99) Calcium Level 8.8 mg/dL (8.5-10.1) Phosphorus Level 5.8 mg/dL (2.6-4.7) Magnesium Level 2.0 mg/dL (1.8-2.4) Total Bilirubin 0.4 mg/dL (0.2-1.0) Aspartate Amino Transf (AST/SGOT) 10 U/L (15-37) Alanine Aminotransferase (ALT/SGPT) 9 U/L (16-63) Alkaline Phosphatase 54 U/L (46-116) Total Protein 5.6 g/dL (6.4-8.2) Albumin 2.2 g/dL (3.4-5.0) Albumin/Globulin Ratio 0.6 (1.0-1.7) Test 09/13/19 07:31 Glucose (Fingerstick) 280 mg/dL (70-99) Micro Microbiology 09/11/19 Blood Culture - Preliminary, Resulted NO GROWTH AFTER 1 DAY Objective Assessment 1. Pancolitis with diarrhea, most likely to be Clostridium difficile. Other reasons for colitis needs to be ruled out if Clostridium difficile is negative. 2. Low grade fever. 3. Acute on chronic renal failure. 4. Most likely dehydration. 5. Dislocated shoulder with infection with group B strep in the past. 6. Coronary artery disease. 7. Debility and self-care problem. Plan Plan of Care cholestyramine continue po vanc AP PEACE MD Sep 13, 2019 10:04
--- NOTE | 2019-09-13 10:54 | PDOC ---
SUBJECTIVE ROS Acute on chronic renal insufficiency Patient claims she's feeling okay overall other than his ongoing diarrhea. Nurses report adequate oral intake. Urine output has been adequate so far. CVS: no Orthopnea, no CP RESP: no SOB, no PACE GI: no Nausea, no Vomiting + ongoing diarrhea : no Dysuria, no Urgency OBJECTIVE Vital Signs Vital Signs Date Time Temp Pulse Resp B/P (MAP) Pulse Ox O2 Delivery O2 Flow Rate FiO2 09/13/19 08:47 95 Room Air 09/13/19 07:00 98.2 75 18 130/57 (81) 98.2 I & 0 Intake and Output 09/13/19 07:00 Intake Total 1600 ml Output Total 650 ml Balance 950 ml Intake Oral 1600 ml Output Urine Total 650 ml # Bowel Movements 9 PHYSICAL EXAM Physical Exam GEN: Awake, Oriented x 3, In no distress EYES: Vision Unchanged, Conjunctiva Normal EN: No EN Drainage, Mucous Membranes moist NECK: no JVD, min JVP, Supple, no Thyromegaly CVS: S1S2, soft Murmur, No Gallop, No Rub,no Edema RESP: no Rales, no Rhonchi,no Acc. Muscle Use GI: BS + ve, NO Bruit, Non Tender, Non Distended : no CVA tenderness, no Suprapubic Tenderness DIAGNOSIS/ASSESSMENT Assessment & Plan ARF: Current fluid and E-lyte status does not necessitate emergent need for dialysis. Will re-evaluate for dialysis in the am. I had a long discussion with the patient regarding where his current kidney function stands and despite being nonoliguric he has poor solute clearance. He claims he trusts us to do what's best for him. We will reevaluate him for dialysis tomorrow. Reviewing his CT scan it does appear he has small pleural and pericardial effusions suggesting the possibility of some fluid overload. He however does not appear to be in any respiratory distress at this time. If creatinine remains above 5 tomorrow, dialysis will be initiated ANEMIA; Aranap as ordered, Transfuse as needed HTN: Current BP meds as reviewed. Pressure seems well-controlled at this time Wide anion gap metabolic acidosis: Suspect due to renal failure Hyperglycemia: Defer to primary team to manage C diff colitis: With ongoing diarrhea and volume depletion will continue IV fluids for now Possible fluid overload: Echocardiogram from May: Probable normal LV function. Ef 55% Discussed Plan of Care with Dr. Stephanie Peace and patient at bedside COMMENT/RELEVANT DATA Meds Current Medications Medications (Trade) Dose Ordered Sig/Lauren Start Time Stop Time Status Last Admin Dose Admin Acetaminophen (Tylenol) 650 mg PRN Q6HRS PRN 09/11/19 05:30 09/11/19 05:36 650 MG Ascorbic Acid (Vitamin C) 500 mg DAILY 09/11/19 09:00 09/13/19 08:46 500 MG Atorvastatin Calcium (Lipitor) 20 mg DAILY 09/11/19 09:00 09/13/19 08:46 20 MG Azithromycin 250 ml @ 250 mls/hr 1X STAT 09/10/19 17:12 09/10/19 18:11 DC 09/10/19 17:12 250 MLS/HR Bisacodyl (Dulcolax Supp) 10 mg PRN DAILY PRN 09/10/19 23:30 Cefdinir (Omnicef) 300 mg BID 09/11/19 09:00 UNV Ceftriaxone Sodium (Rocephin) 1 gm 1X STAT 09/10/19 17:12 09/10/19 17:13 UNV Cholestyramine Resin (Questran Light) 4 gm BID 09/13/19 11:00 Dextrose (Dextrose 50%-Water Syringe) 12.5 gm PRN Q15MIN PRN 09/10/19 23:45 Famotidine (Pepcid) 20 mg QHS 09/12/19 21:00 09/12/19 22:09 20 MG Fentanyl (Duragesic 50mcg/ Hr Patch) 1 patch Q3DAYS 09/13/19 09:00 09/13/19 08:47 1 PATCH Finasteride (Proscar) 5 mg DAILY 09/11/19 09:00 09/13/19 08:46 5 MG Hydromorphone HCl (Dilaudid) 2 mg PRN Q3HRS PRN 09/11/19 13:15 09/13/19 05:52 2 MG Insulin Glargine (Lantus Syringe) 16 unit QHS 09/11/19 21:00 09/12/19 22:16 16 UNIT Insulin Human Lispro (HumaLOG) 0-9 UNITS TIDWMEALS 09/11/19 08:00 09/13/19 08:55 7 UNITS Lactobacillus Rhamnosus (Culturelle) 1 cap BID 09/11/19 09:00 09/13/19 08:46 1 CAP Levothyroxine Sodium (Synthroid) 200 mcg DAILY06 09/11/19 06:00 09/13/19 05:53 200 MCG Lubiprostone (Amitiza) 24 mcg BIDWMEALS 09/11/19 08:00 09/13/19 08:46 24 MCG Meropenem 500 mg/ Sodium Chloride 50 ml @ 100 mls/hr 1X ONCE 09/10/19 17:45 09/10/19 18:14 DC 09/10/19 17:56 100 MLS/HR Morphine Sulfate (Ms Contin) 60 mg TID 09/11/19 09:00 09/13/19 08:46 60 MG Multivitamins (Thera M Plus) 1 tab DAILY 09/11/19 09:00 09/13/19 08:46 1 TAB Non-Formulary Medication (Methylnaltrexone [place] (Relistor)) 150 mg DAILY 09/11/19 09:00 09/12/19 15:54 DC Ondansetron HCl (Zofran Odt) 4 mg PRN Q8HRS PRN 09/10/19 23:45 Pantoprazole Sodium (Protonix) 40 mg DAILYAC 09/11/19 07:30 09/11/19 11:47 DC 09/11/19 08:28 40 MG Pharmacy Consult (C.diff Med Screen By Rx) 1 each 1X ONCE 09/10/19 22:30 09/10/19 22:31 DC 09/10/19 22:30 1 EACH Sennosides (Senna) 8.6 mg DAILY 09/11/19 09:00 09/13/19 08:46 8.6 MG Sodium Chloride 1,000 ml @ 150 mls/hr Q6H40M 09/11/19 09:15 09/13/19 08:44 150 MLS/HR Tamsulosin HCl (Flomax) 0.4 mg DAILY 09/11/19 09:00 09/13/19 08:46 0.4 MG Vancomycin HCl (Vanco Per Pharmacy) 1 each PRN DAILY PRN 09/11/19 09:15 09/11/19 12:49 DC Vancomycin HCl (Vancomycin Oral Solution) 125 mg [id number] 09/11/19 13:00 09/13/19 08:47 125 MG Vancomycin HCl 1.5 gm/Sodium Chloride 500 ml @ 250 mls/hr 1X ONCE 09/10/19 17:45 09/10/19 19:44 DC 09/10/19 19:37 250 MLS/HR Lab Laboratory Tests Test 09/12/19 11:42 09/12/19 16:40 09/12/19 20:43 09/13/19 03:20 Glucose (Fingerstick) 276 mg/dL (70-99) 190 mg/dL (70-99) 269 mg/dL (70-99) White Blood Count 5.6 x10^3/uL (4.0-11.0) Red Blood Count 2.81 x10^6/uL (4.30-5.70) Hemoglobin 8.8 g/dL (13.0-17.5) Hematocrit 26.3 % (39.0-53.0) Mean Corpuscular Volume 94 fL (79-100) Mean Corpuscular Hemoglobin 31 pg (25-35) Mean Corpuscular Hemoglobin Concent 34 g/dL (31-37) Red Cell Distribution Width 15.9 % (11.5-14.5) Platelet Count 231 x10^3/uL (140-400) Sodium Level 135 mmol/L (136-145) Potassium Level 4.0 mmol/L (3.5-5.1) Chloride Level 99 mmol/L (98-107) Carbon Dioxide Level 20 mmol/L (21-32) Anion Gap 16 (6-14) Blood Urea Nitrogen 96 mg/dL (8-26) Creatinine 5.0 mg/dL (0.7-1.3) Estimated GFR (Cockcroft-Gault) 11.3 BUN/Creatinine Ratio 19 (6-20) Glucose Level 309 mg/dL (70-99) Calcium Level 8.8 mg/dL (8.5-10.1) Phosphorus Level 5.8 mg/dL (2.6-4.7) Magnesium Level 2.0 mg/dL (1.8-2.4) Total Bilirubin 0.4 mg/dL (0.2-1.0) Aspartate Amino Transf (AST/SGOT) 10 U/L (15-37) Alanine Aminotransferase (ALT/SGPT) 9 U/L (16-63) Alkaline Phosphatase 54 U/L (46-116) Total Protein 5.6 g/dL (6.4-8.2) Albumin 2.2 g/dL (3.4-5.0) Albumin/Globulin Ratio 0.6 (1.0-1.7) Test 09/13/19 07:31 Glucose (Fingerstick) 280 mg/dL (70-99) Results All relevant outside records, renal labs, imaging studies, telemetry/EKG's were reviewed. Other IMPRESSION: 1. Pancolitis with diffuse wall thickening and adjacent inflammatory changes throughout the colon. Findings are nonspecific may be infectious or inflammatory in etiology. 2. An umbilical hernia which contains a short segment of small bowel. No evidence for obstruction. 3. Numerous hypoattenuating lesions within the kidneys bilaterally incompletely characterized on noncontrast exam. 4. Trace bilateral pleural effusions with adjacent atelectasis. JENNIFER PEACE MD Sep 13, 2019 10:53
[2019-09-13 11:00] VITALS: BP 139/64
[2019-09-13] MEDS: CHOLESTYRAMINE/ASPARTAME 4 GM PACKET PO SCH ×4 (11:00→21:00)
--- NOTE | 2019-09-13 13:13 | PN ---
DATE: 09/13/2019 SUBJECTIVE: The patient is sitting slightly propped up in bed, in no apparent distress, awake, alert. On questioning him, he continued to have diarrhea, but denied any other complaints, in particular denied any nausea or vomiting. Denied any shortness of breath. Unfortunately, his kidney function is steadily worsening. His creatinine is up to 5 from 4.6. His blood sugar seems to be reasonably controlled. PHYSICAL EXAMINATION: GENERAL: When I examined him this morning, he looked pale, but no jaundice, cyanosis or thyromegaly. No jugular venous distention. No limb edema. VITAL SIGNS: His heart rate was 82, blood pressure was 139/64, temperature was 98.2, respiratory rate was 18 and oxygen saturation was 96%. HEAD, EYES, EARS, NOSE AND THROAT: Showed normocephalic, atraumatic. NECK: Supple. HEART: Showed normal first and second heart sounds. No gallop or murmur. CHEST: Clear to auscultation. No crepitation or rhonchi. ABDOMEN: Distended, soft, nontender. NEUROLOGIC: He was awake, alert, responding appropriately. All cranial nerves are intact. He moves extremities without difficulty. NEUROLOGIC: He was awake, alert, responding appropriately. All cranial nerves are intact. He moves his upper extremities to much good extent than lower extremities, although he is unable to feed himself. His intake was 825, output was 350. LABORATORY DATA: Lab work this morning showed a white cell count 5600, hemoglobin 8.8, hematocrit 26, MCV 94 and platelet count 231,000. Serum sodium was 135, potassium 4, chloride 99, bicarbonate 20, anion gap of 16, BUN 96, creatinine 5, estimated GFR was 11.3. Blood glucose was 309. Calcium was 8.8, phosphorus 5.8, magnesium 2. Total bilirubin, AST, ALT, alkaline phosphatase were normal. Total protein was 5.6, albumin 2.2. ASSESSMENT: 1. Acute on chronic kidney injury with kidney function steadily worsening. 2. 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 Other medical problems include: A. Benign prostatic hypertrophy with bladder outlet obstruction requiring indwelling Bledsoe catheter. B. Hypothyroidism. C. Hypogonadism. D. Neurofibromatosis. E. Type 2 diabetes mellitus. F. Chronic fatigue syndrome. G. Chronic pain syndrome. He has also had infected left shoulder prosthesis with growth of group B Streptococcus, treated with IV ceftriaxone for 6 weeks and was switched to oral cefdinir. PLAN: To continue with current management, IV fluid, oral vancomycin. We will monitor his blood sugar and adjust insulin as needed and he might require hemodialysis if his kidney function continued to worsen. KERI DIGGS MD DR: PAIGE/chastity JOB#: [id number] / [id number]
[2019-09-13 15:00] VITALS: BP 131/61
[2019-09-13 19:40] VITALS: BP 168/68
[2019-09-13] MEDS: FAMOTIDINE 20 MG TABLET. PO SCH (20:53)
[2019-09-13] MEDS: INSULIN GLARGINE SYRINGE. SQ SCH (21:00)
[2019-09-13 23:25] VITALS: BP 154/70
[2019-09-14] MEDS: ACETAMINOPHEN 325 MG TABLET. PO PRN (00:58)
[2019-09-14] MEDS: HYDROmorphone 2 MG/ML VIAL IVP PRN ×3 (00:58→16:05)
[2019-09-14 03:25] VITALS: BP 118/56
[2019-09-14] MEDS: IV NORMAL SALINE 1000ML BAG 1,000 ML IV SCH ×2 (03:55→10:35)
[2019-09-14 06:07] LABS: ALBUMIN/GLOBULIN RATIO 0.7 (1.0-1.7); CALCIUM 8.6 mg/dL (8.5-10.1); GFR 11.3; POTASSIUM 3.6 mmol/L (3.5-5.1); TOTAL BILIRUBIN 0.3 mg/dL (0.2-1.0)
[2019-09-14 07:00] VITALS: BP 118/56
[2019-09-14] MEDS: SENNOSIDES 8.6 MG TABLET PO SCH (07:41)
[2019-09-14] MEDS: ATORVASTATIN CALCIUM 20 MG TABLET PO SCH (07:41)
[2019-09-14] MEDS: LACTOBACILLUS RHAMNOSUS GG 1 CAPSULE. PO SCH ×2 (07:41→21:01)
[2019-09-14] MEDS: TAMSULOSIN 0.4 MG CAP.ER.24H. PO SCH (07:41)
[2019-09-14] MEDS: ASCORBIC ACID 500 MG TABLET PO SCH (07:41)
[2019-09-14] MEDS: LUBIPROSTONE 24 MCG CAPSULE PO SCH ×2 (07:41→17:21)
[2019-09-14] MEDS: MULTIVITAMIN with MINERAL TABLET. PO SCH (07:41)
[2019-09-14] MEDS: LEVOTHYROXINE 100 MCG TABLET PO SCH (07:41)
[2019-09-14] MEDS: FINASTERIDE 5 MG TABLET. PO SCH (07:41)
[2019-09-14] MEDS: CHOLESTYRAMINE/ASPARTAME 4 GM PACKET PO SCH ×2 (07:42→21:01)
[2019-09-14] MEDS: VANCOMYCIN 125 MG/2.5 ML ORAL SOLUTION. PO SCH ×4 (07:56→21:01)
[2019-09-14] MEDS: INSULIN LISPRO 300 UNITS/3 ML VIAL. SQ SCH ×3 (07:57→17:00)
[2019-09-14] MEDS: MORPHINE ER 30 MG TABLET.ER PO SCH ×3 (09:24→21:02)
--- NOTE | 2019-09-14 09:26 | PDOC2 ---
CARDIOLOGY CONSULT NOTE CHEIF COMPLAINT: Diarrhea HPI: 78 y.o male with multiple medical issues presented with C.diff colitis likely, being treated for it. Cardiology asked to evaluate him for possible afib. He denies any cardiac symptoms. no palpitations, orthopnea, PND or LE edema. Tired from his current hospital stay. The tele review shows short bursts of AT/Afib (less than 15 beats). Current tele with SR and PAc's. PMHX: 1. CAD s/p CABG 2. HTN 3. 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 SOCHX: [facility] . No smoking. FAMHX: NC CURRENT MEDS: No cardiac meds ALLERGIES: Allergies Coded Allergies Type Severity Reaction Last Updated Verified Penicillins Allergy Intermediate 06/14/19 Yes tapentadol Allergy Intermediate 06/14/19 Yes Iodinated Contrast Media Adverse Reaction Intermediate 09/10/19 Yes ROS: negative unless otherwise noted above in HPI. PHYSICAL EXAM: Vital Signs/I&O: Vital Signs Date Time Temp Pulse Resp B/P (MAP) Pulse Ox O2 Delivery O2 Flow Rate FiO2 09/14/19 08:12 Room Air 09/14/19 07:00 98.4 81 20 118/56 (76) 98 98.4 I & O 09/13/19 09/13/19 09/14/19 15:00 23:00 07:00 Intake Total 120 ml 895 ml 90 ml Output Total 400 ml Balance 120 ml 495 ml 90 ml Physical Exam: GEN.: No apparent distress. Alert and oriented. HEENT: Head is normocephalic, atraumatic NECK: Supple. LUNGS: Clear to auscultation. HEART: RRR, S1, S2 present. Peripheral pulses intact ABDOMEN: Soft, nontender. Positive bowel sounds. +Ventral hernia EXTREMITIES: Without any cyanosis. 2+ edema NEUROLOGIC: Normal speech, weakness diffusely PSYCHIATRIC: Normal affect, normal mood. SKIN: No ulcerations DIAGNOSTIC TESTING: Labs reviewed. EKG pending Tele with SR and PAc's. Hgb 8.8 Cr 5.0 Limited echo in 05/2019 with normal EF. ASSESSMENT: 1. SVT - atrial tachy, pac's. No sustained afib noted. 2. CAD s/p CABG 3. probable c-diff colitis - being tx 4. RENATA PLAN: 1. PAC's etc are likely due to his acute issues, no further CV testing needed. 2. Will start low dose b-lee, Metoprolol 25mg bid. Consider statin etc on an outpt basis. Thanks. MARLA GLOVER MD Sep 14, 2019 09:26
--- NOTE | 2019-09-14 10:06 | PDOC ---
Infectious Disease Note Subjective Subjective pt is feeling better, ROS ROS no n/v/ , diarrhea has improved Vital Sign Vital Signs Vital Signs Date Time Temp Pulse Resp B/P (MAP) Pulse Ox O2 Delivery O2 Flow Rate FiO2 09/14/19 09:24 Room Air 09/14/19 07:00 98.4 81 20 118/56 (76) 98 98.4 Physical Exam PHYSICAL EXAM GENERAL: Alert, oriented gentleman, not in distress. VITAL SIGNS: Stable HEENT: Both pupils are round and reacting. No conjunctival lesion, no lesion in the mouth. NECK: Supple, no JVP, no lymphadenopathy. LUNGS: Clear. HEART: S1, S2 regular. ABDOMEN: Nontender. No organomegaly, rebound or guarding. EXTREMITIES: Mild pitting edema present. Left calcaneal has a small wound. NEUROLOGIC: The patient neurologically is alert, awake, able to move all the extremities, but very weak and debilitated. Labs Lab Laboratory Tests Test 09/13/19 11:19 09/13/19 17:03 09/13/19 21:03 09/14/19 05:15 Glucose (Fingerstick) 252 mg/dL (70-99) 135 mg/dL (70-99) 140 mg/dL (70-99) Sodium Level 137 mmol/L (136-145) Potassium Level 3.6 mmol/L (3.5-5.1) Chloride Level 104 mmol/L (98-107) Carbon Dioxide Level 21 mmol/L (21-32) Anion Gap 12 (6-14) Blood Urea Nitrogen 91 mg/dL (8-26) Creatinine 5.0 mg/dL (0.7-1.3) Estimated GFR (Cockcroft-Gault) 11.3 BUN/Creatinine Ratio 18 (6-20) Glucose Level 143 mg/dL (70-99) Calcium Level 8.6 mg/dL (8.5-10.1) Total Bilirubin 0.3 mg/dL (0.2-1.0) Aspartate Amino Transf (AST/SGOT) 11 U/L (15-37) Alanine Aminotransferase (ALT/SGPT) 6 U/L (16-63) Alkaline Phosphatase 45 U/L (46-116) Total Protein 5.0 g/dL (6.4-8.2) Albumin 2.0 g/dL (3.4-5.0) Albumin/Globulin Ratio 0.7 (1.0-1.7) Test 09/14/19 07:56 Glucose (Fingerstick) 126 mg/dL (70-99) Micro Microbiology 09/11/19 Blood Culture - Preliminary, Resulted NO GROWTH AFTER 1 DAY Objective Assessment 1. Pancolitis with diarrhea, most likely to be Clostridium difficile. Other reasons for colitis needs to be ruled out if Clostridium difficile is negative. 2. Low grade fever. 3. Acute on chronic renal failure. 4. Most likely dehydration. 5. Dislocated shoulder with infection with group B strep in the past. 6. Coronary artery disease. 7. Debility and self-care problem. Plan Plan of Care cholestyramine continue po vanc po cefdinir for his shoulder chronic suppression ( keflex caused neutropenia ) AP PEACE MD Sep 14, 2019 10:06
--- NOTE | 2019-09-14 10:15 | PN ---
DATE: 09/14/2019 SUBJECTIVE: The patient is resting, slightly propped up in bed, sleeping comfortably, in no apparent distress. On questioning him, continued to obviously complain of severe pain; however, is only one bowel movement last night. Unfortunately, his kidney function continued to worsen. His BUN is up to 91, creatinine is 5. PHYSICAL EXAMINATION: GENERAL: When I examined him, he was pale, but no jaundice, cyanosis or thyromegaly. No jugular venous distention. No limb edema. VITAL SIGNS: His heart rate was 81, blood pressure was 118/56, temperature was 98.7, respiratory rate was 18 and oxygen saturation was 96%. HEAD, EYES, EARS, NOSE AND THROAT: Showed normocephalic, atraumatic. NECK: Supple. CARDIAC: Normal first and second heart sounds. No gallop or murmur. CHEST: Clear to auscultation. No crepitation or rhonchi. ABDOMEN: Distended, soft, nontender. NEUROLOGIC: He was sleepy, but arousable. All cranial nerves intact. He moves upper extremities to much good extent than lower extremities. He is mostly bedbound, chair bound. His intake over the last 24 hours was 1600, output was 650. LABORATORY DATA: As of this morning showed a serum sodium 137, potassium 3.6, chloride 104, bicarbonate 21, anion gap of 12, BUN 91, creatinine 5, estimated GFR was 11 and glucose 143, calcium was 8.6. Total bilirubin, AST, ALT, alkaline phosphatase were normal. Total protein was 5, albumin 2. His white cell count was 5600, hemoglobin 8.8, hematocrit 26.3, MCV was 94 and platelet count 231,000. ASSESSMENT: 1. Acute on chronic kidney injury with kidney function steadily worsening. 2. Clostridium difficile colitis with recurrent bouts of diarrhea for which he is now on oral vancomycin, lactobacillus and cholestyramine. 3. Other medical problems include: A. Benign prostatic hypertrophy with bladder outlet obstruction requiring indwelling Bledsoe catheter. B. Hypothyroidism. C. Hypogonadism. D. Neurofibromatosis. E. Type 2 diabetes mellitus. F. Chronic fatigue syndrome. G. Chronic pain syndrome. 4. Infected left shoulder prosthesis with growth of group B Streptococcus treated with IV ceftriaxone for 6 weeks and has been on suppressive therapy in the form of cefdinir. He was initially started on Keflex, but developed severe leukopenia and has since been on cefdinir 300 mg twice a day. PLAN: The plan is to continue with IV fluid and oral vancomycin. Continue with pain management. Continue to monitor his blood sugar and adjust insulin as needed. His kidney function has continued to be abnormal without improvement. Hemodialysis will probably be a consideration and the Nephrology team is following. KERI DIGGS MD DR: PAIGE/chastity JOB#: [id number] / [id number]
[2019-09-14 11:41] VITALS: BP 135/67
[2019-09-14] MEDS ORDERED: LIDOCAINE WITH 8.4% SOD BICARB 3 ML DISP.SYRIN. ONE (11:54)
[2019-09-14] MEDS ORDERED: LIDOCAINE WITH 8.4% SOD BICARB 3 ML DISP.SYRIN. INJ ONE (12:30)
[2019-09-14] MEDS ORDERED: GADOTERATE 5 MMOL/10ML VIAL. ONE (12:44)
[2019-09-14] MEDS ORDERED: HYDROCORTISONE SOD SUCC/PF 250 MG/2 ML VIAL. ONE (12:50)
[2019-09-14] MEDS ORDERED: IOHEXOL 240 MG/ML 50ML VIAL. ONE (12:50)
[2019-09-14] MEDS ORDERED: diphenhydrAMINE 50 MG/ML VIAL ONE (12:50)
[2019-09-14] MEDS ORDERED: GADOTERATE 5 MMOL/10ML VIAL. IVP ONE (13:00)
[2019-09-14] MEDS ORDERED: ACETAMINOPHEN 500 MG TABLET PO PRN (13:45)
[2019-09-14] MEDS ORDERED: DIALYSIS PATIENT. MC PRN (13:45)
[2019-09-14] MEDS ORDERED: IV NORMAL SALINE 1000ML BAG 1,000 ML IV PRN ×2 (13:45)
[2019-09-14] MEDS ORDERED: diphenhydrAMINE 50 MG/ML VIAL IV PRN ×2 (13:45)
--- NOTE | 2019-09-14 14:16 | RAD ---
Procedure: Temporary hemodialysis catheter placement under fluoroscopy Clinical Indication: Adult male requiring hemodialysis Sedation: none Antibiotics: None Fluoro Time: 13 Gycm2 Contrast: None Sterility: All elements of maximal sterile barrier technique including the use of a cap, mask, sterile gown, sterile gloves, large sterile sheet, appropriate hand hygiene, and 2% chlorhexidine for cutaneous antisepsis (or acceptable alternative antiseptic per current guidelines) were followed for this procedure. Consent: The procedure was explained in its entirety to the patient or the patients designated software sales representative by a member of the treatment team, including a discussion of the risks, benefits and commonly accepted alternatives to the procedure, as well as the expected consequences of no therapy whatsoever. Discussion of the risks included, but was not limited to, those that are most frequent and those that are rare but possibly severe or life-threatening, as well as the possibility of unforeseen complications. Technique and Findings: Following informed consent, the patient was prepped and draped in the usual sterile fashion. Ultrasound interrogation of the right neck revealed patency and compressibility of the right internal jugular vein. A 21-gauge micropuncture needle was used to gain access to this vein after 1% Lidocaine was used to achieve local anesthesia. A hardcopy ultrasound image was recorded. The needle was exchanged over a wire for serial dilators followed by a 20cm Jacklyn temporary hemodialysis catheter which was deployed under fluoroscopic guidance such that the distal tip resided in the mid right atrium. The catheter flow rates were assessed manually and found to be excellent. The catheter was then flushed, packed with Heparin, capped, and sutured to the skin. Complications: No immediate Impression: 1. Ultrasound and fluoroscopic guided placement of a temporary hemodialysis catheter which exhibits excellent manual flow rates as described.
--- NOTE | 2019-09-14 14:32 | PDOC ---
Dialysis Progress Note Dialysis Note Dialysis Note Follow-up for acute on chronic renal insufficiency Seen on Hemodialysis, tolerating treatment Okay so far Vitals on Hemodialysis: 125 / 67 78 afeb General Appearance: Awake: Alert Oriented x 3 Neck: No JVD or JVP Chest: CTA Nitesh Heart: S1 S2 Abdomen - Soft NTND Extremities - No Edema ATN/ ARF: Dialysis as below F 180 NR 3 Hrs 4 K 2.5 Ca 140 Na 35 HC03 Qb 350 + Qd 500+ Heparin 0 Units Uf 0 Kgs or to dry weight as tolerated May give 25-50 gms of 25% Albumin if needed to maintain Hemodynamic stability Treatment plan reviewed and discussed with case operator Vitals Vital Signs Vital Signs Date Time Temp Pulse Resp B/P (MAP) Pulse Ox O2 Delivery O2 Flow Rate FiO2 09/14/19 11:41 98.7 88 20 135/67 (89) 96 Room Air 98.7 Labs Last Labs Laboratory Tests Test 09/12/19 16:40 09/12/19 20:43 09/13/19 03:20 09/13/19 07:31 Glucose (Fingerstick) 190 mg/dL (70-99) 269 mg/dL (70-99) 280 mg/dL (70-99) White Blood Count 5.6 x10^3/uL (4.0-11.0) Red Blood Count 2.81 x10^6/uL (4.30-5.70) Hemoglobin 8.8 g/dL (13.0-17.5) Hematocrit 26.3 % (39.0-53.0) Mean Corpuscular Volume 94 fL (79-100) Mean Corpuscular Hemoglobin 31 pg (25-35) Mean Corpuscular Hemoglobin Concent 34 g/dL (31-37) Red Cell Distribution Width 15.9 % (11.5-14.5) Platelet Count 231 x10^3/uL (140-400) Sodium Level 135 mmol/L (136-145) Potassium Level 4.0 mmol/L (3.5-5.1) Chloride Level 99 mmol/L (98-107) Carbon Dioxide Level 20 mmol/L (21-32) Anion Gap 16 (6-14) Blood Urea Nitrogen 96 mg/dL (8-26) Creatinine 5.0 mg/dL (0.7-1.3) Estimated GFR (Cockcroft-Gault) 11.3 BUN/Creatinine Ratio 19 (6-20) Glucose Level 309 mg/dL (70-99) Calcium Level 8.8 mg/dL (8.5-10.1) Phosphorus Level 5.8 mg/dL (2.6-4.7) Magnesium Level 2.0 mg/dL (1.8-2.4) Total Bilirubin 0.4 mg/dL (0.2-1.0) Aspartate Amino Transf (AST/SGOT) 10 U/L (15-37) Alanine Aminotransferase (ALT/SGPT) 9 U/L (16-63) Alkaline Phosphatase 54 U/L (46-116) Total Protein 5.6 g/dL (6.4-8.2) Albumin 2.2 g/dL (3.4-5.0) Albumin/Globulin Ratio 0.6 (1.0-1.7) Test 09/13/19 11:19 09/13/19 17:03 09/13/19 21:03 09/14/19 05:15 Glucose (Fingerstick) 252 mg/dL (70-99) 135 mg/dL (70-99) 140 mg/dL (70-99) Sodium Level 137 mmol/L (136-145) Potassium Level 3.6 mmol/L (3.5-5.1) Chloride Level 104 mmol/L (98-107) Carbon Dioxide Level 21 mmol/L (21-32) Anion Gap 12 (6-14) Blood Urea Nitrogen 91 mg/dL (8-26) Creatinine 5.0 mg/dL (0.7-1.3) Estimated GFR (Cockcroft-Gault) 11.3 BUN/Creatinine Ratio 18 (6-20) Glucose Level 143 mg/dL (70-99) Calcium Level 8.6 mg/dL (8.5-10.1) Total Bilirubin 0.3 mg/dL (0.2-1.0) Aspartate Amino Transf (AST/SGOT) 11 U/L (15-37) Alanine Aminotransferase (ALT/SGPT) 6 U/L (16-63) Alkaline Phosphatase 45 U/L (46-116) Total Protein 5.0 g/dL (6.4-8.2) Albumin 2.0 g/dL (3.4-5.0) Albumin/Globulin Ratio 0.7 (1.0-1.7) Test 09/14/19 07:56 09/14/19 10:49 Glucose (Fingerstick) 126 mg/dL (70-99) 133 mg/dL (70-99) Laboratory Tests Test 09/13/19 17:03 09/13/19 21:03 09/14/19 05:15 09/14/19 07:56 Glucose (Fingerstick) 135 mg/dL (70-99) 140 mg/dL (70-99) 126 mg/dL (70-99) Sodium Level 137 mmol/L (136-145) Potassium Level 3.6 mmol/L (3.5-5.1) Chloride Level 104 mmol/L (98-107) Carbon Dioxide Level 21 mmol/L (21-32) Anion Gap 12 (6-14) Blood Urea Nitrogen 91 mg/dL (8-26) Creatinine 5.0 mg/dL (0.7-1.3) Estimated GFR (Cockcroft-Gault) 11.3 BUN/Creatinine Ratio 18 (6-20) Glucose Level 143 mg/dL (70-99) Calcium Level 8.6 mg/dL (8.5-10.1) Total Bilirubin 0.3 mg/dL (0.2-1.0) Aspartate Amino Transf (AST/SGOT) 11 U/L (15-37) Alanine Aminotransferase (ALT/SGPT) 6 U/L (16-63) Alkaline Phosphatase 45 U/L (46-116) Total Protein 5.0 g/dL (6.4-8.2) Albumin 2.0 g/dL (3.4-5.0) Albumin/Globulin Ratio 0.7 (1.0-1.7) Test 09/14/19 10:49 Glucose (Fingerstick) 133 mg/dL (70-99) Assessment Assessment Problems Medical Problems: (1) RENATA (acute kidney injury) Status: Acute (2) Diarrhea Status: Acute (3) Pneumonia Status: Acute Plan Plan of Care Problems Medical Problems: (1) RENATA (acute kidney injury) Status: Acute (2) Diarrhea Status: Acute (3) Pneumonia Status: Acute JENNIFER PEACE MD Sep 14, 2019 14:32
[2019-09-14] MEDS: CEFDINIR 300 MG CAPSULE PO SCH ×2 (17:21→21:01)
[2019-09-14] MEDS: METOPROLOL TART IMMED RELEASE 25 MG TABLET. PO SCH ×2 (17:21→21:02)
[2019-09-14 20:10] VITALS: BP 165/72
[2019-09-14] MEDS: INSULIN GLARGINE SYRINGE. SQ SCH (21:00)
[2019-09-14] MEDS: FAMOTIDINE 20 MG TABLET. PO SCH (21:02)
[2019-09-14 23:50] VITALS: BP 143/56
[2019-09-15] MEDS: HYDROmorphone 2 MG/ML VIAL IVP PRN ×6 (00:03→21:20)
[2019-09-15 03:59] VITALS: BP 152/49
[2019-09-15 05:55] LABS: CALCIUM 8.3 mg/dL (8.5-10.1); CREATININE 3.4 mg/dL (0.7-1.3); GFR 17.7; POTASSIUM 3.7 mmol/L (3.5-5.1)
[2019-09-15 05:59] LABS: HEMATOCRIT 28.6 % (39.0-53.0); HEMOGLOBIN 9.5 g/dL (13.0-17.5)
[2019-09-15] MEDS: LEVOTHYROXINE 100 MCG TABLET PO SCH (06:33)
[2019-09-15 07:50] VITALS: BP 150/65
[2019-09-15] MEDS: INSULIN LISPRO 300 UNITS/3 ML VIAL. SQ SCH ×3 (08:00→17:00)
[2019-09-15] MEDS: VANCOMYCIN 125 MG/2.5 ML ORAL SOLUTION. PO SCH ×4 (09:00→21:20)
[2019-09-15] MEDS: MORPHINE ER 30 MG TABLET.ER PO SCH ×3 (09:35→21:07)
--- NOTE | 2019-09-15 11:18 | PDOC ---
Dialysis Progress Note Dialysis Note Dialysis Note Follow-up for acute on chronic renal insufficiency Seen on Hemodialysis, tolerating treatment Okay so far Vitals on Hemodialysis: 133/51 70 afeb General Appearance: Awake: Alert Oriented x 3 Neck: No JVD or JVP Chest: CTA Nitesh Heart: S1 S2 Abdomen - Soft NTND Extremities - No Edema ATN/ ARF: Dialysis as below F 180 NR 3 Hrs 4 K 2.5 Ca 140 Na 35 HC03 Qb 350 + Qd 500+ Heparin 0 Units Uf 0 Kgs or to dry weight as tolerated May give 25-50 gms of 25% Albumin if needed to maintain Hemodynamic stability Treatment plan reviewed and discussed with press worker helper Vitals Vital Signs Vital Signs Date Time Temp Pulse Resp B/P (MAP) Pulse Ox O2 Delivery O2 Flow Rate FiO2 09/15/19 09:35 98 Room Air 09/15/19 07:50 98.5 77 18 150/65 (93) 98.5 Labs Last Labs Laboratory Tests Test 09/13/19 11:19 09/13/19 17:03 09/13/19 21:03 09/14/19 05:15 Glucose (Fingerstick) 252 mg/dL (70-99) 135 mg/dL (70-99) 140 mg/dL (70-99) Sodium Level 137 mmol/L (136-145) Potassium Level 3.6 mmol/L (3.5-5.1) Chloride Level 104 mmol/L (98-107) Carbon Dioxide Level 21 mmol/L (21-32) Anion Gap 12 (6-14) Blood Urea Nitrogen 91 mg/dL (8-26) Creatinine 5.0 mg/dL (0.7-1.3) Estimated GFR (Cockcroft-Gault) 11.3 BUN/Creatinine Ratio 18 (6-20) Glucose Level 143 mg/dL (70-99) Calcium Level 8.6 mg/dL (8.5-10.1) Total Bilirubin 0.3 mg/dL (0.2-1.0) Aspartate Amino Transf (AST/SGOT) 11 U/L (15-37) Alanine Aminotransferase (ALT/SGPT) 6 U/L (16-63) Alkaline Phosphatase 45 U/L (46-116) Total Protein 5.0 g/dL (6.4-8.2) Albumin 2.0 g/dL (3.4-5.0) Albumin/Globulin Ratio 0.7 (1.0-1.7) Hepatitis B Surface Antigen Nonreactive (Nonreactive) Hepatitis B Surface Antibody, Quant <3.1 mIU/mL (Immunity>9.9) Test 09/14/19 07:56 09/14/19 10:49 09/14/19 17:27 09/14/19 21:02 Glucose (Fingerstick) 126 mg/dL (70-99) 133 mg/dL (70-99) 111 mg/dL (70-99) 110 mg/dL (70-99) Test 09/15/19 04:40 09/15/19 07:26 Hemoglobin 9.5 g/dL (13.0-17.5) Hematocrit 28.6 % (39.0-53.0) Sodium Level 139 mmol/L (136-145) Potassium Level 3.7 mmol/L (3.5-5.1) Chloride Level 104 mmol/L (98-107) Carbon Dioxide Level 25 mmol/L (21-32) Anion Gap 10 (6-14) Blood Urea Nitrogen 54 mg/dL (8-26) Creatinine 3.4 mg/dL (0.7-1.3) Estimated GFR (Cockcroft-Gault) 17.7 Glucose Level 136 mg/dL (70-99) Calcium Level 8.3 mg/dL (8.5-10.1) Glucose (Fingerstick) 173 mg/dL (70-99) Laboratory Tests Test 09/14/19 17:27 09/14/19 21:02 09/15/19 04:40 09/15/19 07:26 Glucose (Fingerstick) 111 mg/dL (70-99) 110 mg/dL (70-99) 173 mg/dL (70-99) Hemoglobin 9.5 g/dL (13.0-17.5) Hematocrit 28.6 % (39.0-53.0) Sodium Level 139 mmol/L (136-145) Potassium Level 3.7 mmol/L (3.5-5.1) Chloride Level 104 mmol/L (98-107) Carbon Dioxide Level 25 mmol/L (21-32) Anion Gap 10 (6-14) Blood Urea Nitrogen 54 mg/dL (8-26) Creatinine 3.4 mg/dL (0.7-1.3) Estimated GFR (Cockcroft-Gault) 17.7 Glucose Level 136 mg/dL (70-99) Calcium Level 8.3 mg/dL (8.5-10.1) Assessment Assessment Problems Medical Problems: (1) RENATA (acute kidney injury) Status: Acute (2) Diarrhea Status: Acute (3) Pneumonia Status: Acute Plan Plan of Care Problems Medical Problems: (1) RENATA (acute kidney injury) Status: Acute (2) Diarrhea Status: Acute (3) Pneumonia Status: Acute JENNIFER PEACE MD Sep 15, 2019 11:18
--- NOTE | 2019-09-15 11:29 | PDOC ---
Infectious Disease Note Subjective Subjective + diarrhea, 2 stools so far since 4 this am Appetite alright Denies abdominal cramps/N/V No fevers Vital Sign Vital Signs Vital Signs Date Time Temp Pulse Resp B/P (MAP) Pulse Ox O2 Delivery O2 Flow Rate FiO2 09/15/19 09:35 98 Room Air 09/15/19 07:50 98.5 77 18 150/65 (93) 98.5 Physical Exam PHYSICAL EXAM GENERAL: Propped up in bed, alert, NAD HEENT: Oral cavity clear NECK: Supple LUNGS: Clear. HEART: S1, S2 ABDOMEN: Obese, + hernia, soft, nontender : Bledsoe in place EXTREMITIES: Mild pitting edema present. Left calcaneal has a small wound, h eel protector NEUROLOGIC: Alert, oriented, able to move all the extremities, but very weak and debilitated. Temp RIJ/HDC (09/14) without csigns of complications Labs Lab Laboratory Tests Test 09/14/19 17:27 09/14/19 21:02 09/15/19 04:40 09/15/19 07:26 Glucose (Fingerstick) 111 mg/dL (70-99) 110 mg/dL (70-99) 173 mg/dL (70-99) Hemoglobin 9.5 g/dL (13.0-17.5) Hematocrit 28.6 % (39.0-53.0) Sodium Level 139 mmol/L (136-145) Potassium Level 3.7 mmol/L (3.5-5.1) Chloride Level 104 mmol/L (98-107) Carbon Dioxide Level 25 mmol/L (21-32) Anion Gap 10 (6-14) Blood Urea Nitrogen 54 mg/dL (8-26) Creatinine 3.4 mg/dL (0.7-1.3) Estimated GFR (Cockcroft-Gault) 17.7 Glucose Level 136 mg/dL (70-99) Calcium Level 8.3 mg/dL (8.5-10.1) Micro Microbiology 09/11/19 Blood Culture - Preliminary, Resulted NO GROWTH AFTER 4 DAYS 1 Objective Assessment Pancolitis with diarrhea, C. 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 Acute on chronic renal failure, requiring HD Dislocated shoulder with infection with group B strep in the past. Coronary artery disease. Debility and self-care problem. Plan Plan of Care Continue cholestyramine Continue po vanc Continue po cefdinir for his shoulder, chronic suppression ( keflex caused neutropenia ) Maintain hydration Attending Co-Sign The patient was seen and interviewed as well as examined at the bedside. The chart was reviewed. The case was discussed. Agree with the plan of care. LALO SCHWARZ APRN Sep 15, 2019 11:29 AP PEACE MD Sep 15, 2019 13:38
[2019-09-15] MEDS ORDERED: IV NORMAL SALINE 1000ML BAG 1,000 ML IV PRN ×2 (11:45)
[2019-09-15] MEDS ORDERED: ACETAMINOPHEN 500 MG TABLET PO PRN (11:45)
[2019-09-15] MEDS ORDERED: diphenhydrAMINE 50 MG/ML VIAL IV PRN ×2 (11:45)
[2019-09-15] MEDS ORDERED: DIALYSIS PATIENT. MC PRN (11:45)
[2019-09-15] MEDS: CEFDINIR 300 MG CAPSULE PO SCH ×2 (14:30→21:07)
[2019-09-15] MEDS: CHOLESTYRAMINE/ASPARTAME 4 GM PACKET PO SCH ×2 (14:30→21:06)
[2019-09-15] MEDS: LACTOBACILLUS RHAMNOSUS GG 1 CAPSULE. PO SCH ×2 (14:31→21:07)
[2019-09-15] MEDS: LUBIPROSTONE 24 MCG CAPSULE PO SCH ×2 (14:31→17:22)
[2019-09-15] MEDS: FINASTERIDE 5 MG TABLET. PO SCH (14:31)
[2019-09-15] MEDS: ASPIRIN ENTERIC COATED 81 MG TABLET.DR. PO SCH (14:31)
[2019-09-15] MEDS: SENNOSIDES 8.6 MG TABLET PO SCH (14:31)
[2019-09-15] MEDS: MULTIVITAMIN with MINERAL TABLET. PO SCH (14:31)
[2019-09-15] MEDS: ASCORBIC ACID 500 MG TABLET PO SCH (14:32)
[2019-09-15] MEDS: ATORVASTATIN CALCIUM 20 MG TABLET PO SCH (14:32)
[2019-09-15] MEDS: METOPROLOL TART IMMED RELEASE 25 MG TABLET. PO SCH ×2 (14:32→21:06)
[2019-09-15] MEDS: TAMSULOSIN 0.4 MG CAP.ER.24H. PO SCH (14:32)
--- NOTE | 2019-09-15 15:11 | PN ---
DATE: 09/15/2019 SUBJECTIVE: The patient is resting, slightly propped up in bed, sleeping comfortably. He is arousable. On questioning him, he stated that generally uneventful night. He did have loose bowel movement daily to this morning. He was dialyzed yesterday and apparently there are plans for him to be dialyzed again today. PHYSICAL EXAMINATION: GENERAL: When I examined him, he looked pale, but no jaundice, cyanosis or thyromegaly. No jugular venous distention. No lower limb edema. VITAL SIGNS: His heart rate was 77, blood pressure was 150/65, temperature was 98.5, respiratory rate was 18 and oxygen saturation was 98%. The rest of clinical exam is stable. His intake over the last 24 hours was 1100, output was 400. LABORATORY DATA: His hemoglobin was 9.5, hematocrit 28.6. Chemistry showed his BUN is 54, creatinine 3.4. ASSESSMENT: 1. Acute on chronic kidney injury, for which he has had temporary hemodialysis catheter and was dialyzed yesterday with a plan to dialyze him again today. 2. Clostridium difficile colitis with recurrent bouts of diarrhea, for which he is now on oral vancomycin, lactobacillus, and cholestyramine. 3. Other medical problems include: A. Benign prostatic hypertrophy with bladder outlet obstruction requiring indwelling Bledsoe catheter. B. Hypothyroidism. C. Hypogonadism. D. Neurofibromatosis. E. Type 2 diabetes mellitus. F. Chronic fatigue syndrome. G. Chronic pain syndrome for infected left shoulder prosthesis with growth of group B Streptococcus, treated with IV ceftriaxone for 6 weeks and has been on suppressive therapy in the form of cefdinir. He was initially started on Keflex, but developed severe leukopenia, has since been on cefdinir. PLAN: To continue with oral vancomycin. Continue pain management. Continue to monitor his blood sugar and adjust insulin as needed. Continue with hemodialysis as per Nephrology team. KERI DIGGS MD DR: PAIGE/chastity JOB#: [id number] / [id number]
[2019-09-15 19:12] VITALS: BP 123/53
[2019-09-15] MEDS: FAMOTIDINE 20 MG TABLET. PO SCH (21:06)
[2019-09-15] MEDS: INSULIN GLARGINE SYRINGE. SQ SCH (21:19)
[2019-09-15 23:10] VITALS: BP 134/60
[2019-09-16] MEDS: HYDROmorphone 2 MG/ML VIAL IVP PRN ×7 (01:06→23:33)
[2019-09-16 03:29] VITALS: BP 143/55
[2019-09-16] MEDS: LEVOTHYROXINE 100 MCG TABLET PO SCH (06:23)
[2019-09-16 07:00] VITALS: BP 174/58
[2019-09-16] MEDS: METOPROLOL TART IMMED RELEASE 25 MG TABLET. PO SCH ×2 (08:24→20:37)
[2019-09-16] MEDS: SENNOSIDES 8.6 MG TABLET PO SCH (08:24)
[2019-09-16] MEDS: ASCORBIC ACID 500 MG TABLET PO SCH (08:24)
[2019-09-16] MEDS: VANCOMYCIN 125 MG/2.5 ML ORAL SOLUTION. PO SCH ×4 (08:24→20:31)
[2019-09-16] MEDS: CHOLESTYRAMINE/ASPARTAME 4 GM PACKET PO SCH ×2 (08:24→20:31)
[2019-09-16] MEDS: LUBIPROSTONE 24 MCG CAPSULE PO SCH ×2 (08:24→17:12)
[2019-09-16] MEDS: TAMSULOSIN 0.4 MG CAP.ER.24H. PO SCH (08:26)
[2019-09-16] MEDS: ASPIRIN ENTERIC COATED 81 MG TABLET.DR. PO SCH (08:26)
[2019-09-16] MEDS: LACTOBACILLUS RHAMNOSUS GG 1 CAPSULE. PO SCH ×2 (08:26→20:31)
[2019-09-16] MEDS: CEFDINIR 300 MG CAPSULE PO SCH ×2 (08:26→20:31)
[2019-09-16] MEDS: ATORVASTATIN CALCIUM 20 MG TABLET PO SCH (08:26)
[2019-09-16] MEDS: MORPHINE ER 30 MG TABLET.ER PO SCH ×3 (08:26→20:32)
[2019-09-16] MEDS: FINASTERIDE 5 MG TABLET. PO SCH (08:26)
[2019-09-16] MEDS: MULTIVITAMIN with MINERAL TABLET. PO SCH (08:27)
[2019-09-16] MEDS: INSULIN LISPRO 300 UNITS/3 ML VIAL. SQ SCH ×3 (08:39→17:46)
[2019-09-16] MEDS: fentaNYL 50MCG/HR PATCH 1 PATCH PATCH.TD72 TD SCH (09:00)
--- NOTE | 2019-09-16 10:08 | PN ---
DATE: 09/16/2019 SUBJECTIVE: The patient is resting, sleeping, propped up comfortably in bed, in no apparent respiratory distress. The staff stated that he had one large loose bowel movement. Otherwise, he had generally uneventful night. PHYSICAL EXAMINATION: GENERAL: When I examined him, he looked pale, not jaundiced, cyanosis or thyromegaly. No jugular venous distention. No lower limb edema. VITAL SIGNS: Her heart rate was 73, blood pressure 143/55, temperature was 98.6, respiratory rate 20, and oxygen saturation was 95% on room air. HEAD, EYES, EARS, NOSE AND THROAT: Showed normocephalic, atraumatic. NECK: Supple. HEART: Showed normal first and second heart sounds with no gallop or murmur. CHEST: Clear to auscultation. No crepitation or rhonchi. ABDOMEN: Distended, soft, nontender. NEUROLOGIC: He was sleepy, but arousable. All cranial nerves are intact. He moves the right upper extremity to a great extent than his lower extremities, mostly bedbound, chair bound. His intake is incompletely recorded, output was 1250. LABORATORY DATA: His blood sugar seems to be reasonably controlled. No lab work done this morning. As of yesterday, his creatinine came down to 3.4. ASSESSMENT: 1. Azyee-xu-gbikzdv kidney injury for which he has had temporary hemodialysis catheter and was dialyzed two days in a row. 2. Clostridium difficile colitis with recurrent bouts of diarrhea for which he is now on oral vancomycin, lactobacillus and cholestyramine. His diarrhea is slowing. 3. Other medical problems include: A. Benign prostatic hypertrophy with bladder outlet obstruction requiring indwelling Bledsoe catheter. B. Hypothyroidism. C. Hypogonadism. D. Neurofibromatosis. E. Type 2 diabetes mellitus. F. Chronic fatigue syndrome. G. Chronic pain syndrome due to infected left shoulder prosthesis with growth of group B Streptococcus, treated with IV ceftriaxone for 6 weeks, has been on suppressive therapy in the form of cefdinir. He was initially started on Keflex; however, he developed severe leukopenia that has since resolved. PLAN: To continue with oral vancomycin. Continue with pain management. Continue to monitor his blood sugar and adjust insulin as needed. Continue with hemodialysis as per Nephrology team. AHMED M. CATERINA, MD DR: PAIGE/chastity JOB#: [id number] / [id number]
--- NOTE | 2019-09-16 10:13 | PDOC ---
Infectious Disease Note Subjective Subjective Less frequent stools. 1 stool so far this morning, 3 in last 24 hours Denies N/V/cramps No fevers ROS ROS per HPI Vital Sign Vital Signs Vital Signs Date Time Temp Pulse Resp B/P (MAP) Pulse Ox O2 Delivery O2 Flow Rate FiO2 09/16/19 08:26 95 Room Air 09/16/19 08:24 73 143/55 09/16/19 07:00 98.7 20 98.7 Physical Exam PHYSICAL EXAM GENERAL: Propped up in bed, alert, NAD HEENT: Oral cavity clear NECK: Supple LUNGS: Clear. HEART: S1, S2 ABDOMEN: Obese, + hernia, soft, nontender, + BS : Bledsoe in place EXTREMITIES: Mild pitting edema present. Left calcaneal has a small wound, heel protector NEUROLOGIC: Alert, oriented, able to move all the extremities, but very weak and debilitated. Temp RIJ/HDC (09/14) without signs of complications Labs Lab Laboratory Tests Test 09/15/19 16:48 09/15/19 20:33 09/15/19 21:24 09/16/19 08:08 Glucose (Fingerstick) 175 mg/dL (70-99) 223 mg/dL (70-99) 226 mg/dL (70-99) 229 mg/dL (70-99) Micro Microbiology 09/11/19 Blood Culture - Preliminary, Resulted NO GROWTH AFTER 4 DAYS 1 Objective Assessment Pancolitis with diarrhea, C. 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 Acute on chronic renal failure, requiring HD Dislocated shoulder with infection with group B strep in the past. Coronary artery disease. Debility and self-care problem. Plan Plan of Care Continue cholestyramine Continue po vanc Continue po cefdinir for his shoulder, chronic suppression ( keflex caused neutropenia ) Maintain hydration D/w on phone per pt's request Attending Co-Sign The patient was seen and interviewed as well as examined at the bedside. The [place] was reviewed. The case was discussed. Agree with the plan of care. d/w in detail LALO SCHWARZ APRN Sep 16, 2019 10:13 AP PEACE MD Sep 16, 2019 13:16
[2019-09-16 11:00] VITALS: BP 161/87
[2019-09-16] MEDS ORDERED: MAGNESIUM SULFATE 2GM 50 ML IV PRN (12:15)
[2019-09-16 14:45] VITALS: BP 154/68
[2019-09-16 19:10] VITALS: BP 136/61
[2019-09-16] MEDS: FAMOTIDINE 20 MG TABLET. PO SCH (20:32)
[2019-09-16] MEDS: INSULIN GLARGINE SYRINGE. SQ SCH (21:58)
[2019-09-16 23:38] VITALS: BP 142/81
--- NOTE | 2019-09-17 02:26 | NUR ---
pt tele monitor reading at this is, SR with HR of 74 bmp.
[2019-09-17 03:27] VITALS: BP 142/70
[2019-09-17] MEDS: HYDROmorphone 2 MG/ML VIAL IVP PRN ×3 (04:17→21:07)
[2019-09-17 04:22] LABS: HEMATOCRIT 28.5 % (39.0-53.0); HEMOGLOBIN 9.4 g/dL (13.0-17.5)
[2019-09-17] MEDS: LEVOTHYROXINE 100 MCG TABLET PO SCH (05:56)
[2019-09-17 06:10] LABS: CALCIUM 8.4 mg/dL (8.5-10.1); CREATININE 2.9 mg/dL (0.7-1.3); GFR 21.2; PHOSPHORUS 3.2 mg/dL (2.6-4.7); POTASSIUM 3.9 mmol/L (3.5-5.1)
[2019-09-17 07:00] VITALS: BP 128/77
[2019-09-17] MEDS: INSULIN LISPRO 300 UNITS/3 ML VIAL. SQ SCH ×3 (08:00→17:28)
[2019-09-17 08:16] VITALS: BP 148/77
[2019-09-17] MEDS: ASCORBIC ACID 500 MG TABLET PO SCH (09:00)
--- NOTE | 2019-09-17 09:15 | NUR ---
IP: Pt is C.diff + requiring contact plus precautions using brown sign.
[2019-09-17] MEDS: MORPHINE ER 30 MG TABLET.ER PO SCH ×3 (09:45→21:07)
[2019-09-17] MEDS: LACTOBACILLUS RHAMNOSUS GG 1 CAPSULE. PO SCH ×2 (09:45→21:02)
[2019-09-17] MEDS: METOPROLOL TART IMMED RELEASE 25 MG TABLET. PO SCH ×2 (09:45→21:02)
[2019-09-17] MEDS: SENNOSIDES 8.6 MG TABLET PO SCH (09:45)
[2019-09-17] MEDS: MULTIVITAMIN with MINERAL TABLET. PO SCH (09:45)
[2019-09-17] MEDS: TAMSULOSIN 0.4 MG CAP.ER.24H. PO SCH (09:45)
[2019-09-17] MEDS: CEFDINIR 300 MG CAPSULE PO SCH ×2 (09:45→21:03)
[2019-09-17] MEDS: VANCOMYCIN 125 MG/2.5 ML ORAL SOLUTION. PO SCH ×4 (09:45→21:03)
[2019-09-17] MEDS: FINASTERIDE 5 MG TABLET. PO SCH (09:45)
[2019-09-17] MEDS: CHOLESTYRAMINE/ASPARTAME 4 GM PACKET PO SCH ×2 (09:45→21:03)
[2019-09-17] MEDS: ASPIRIN ENTERIC COATED 81 MG TABLET.DR. PO SCH (09:45)
[2019-09-17] MEDS: LUBIPROSTONE 24 MCG CAPSULE PO SCH ×2 (09:45→17:23)
--- NOTE | 2019-09-17 11:14 | PN ---
DATE: 09/17/2019 SUBJECTIVE: The patient is resting, slightly propped up in bed, in no apparent distress. He stated he has only one bowel movement last night, has not had any this morning. Denied any nausea or vomiting. Denied any abdominal pain. PHYSICAL EXAMINATION: GENERAL: When I examined him, he was pale, but no jaundice, cyanosis or thyromegaly. No jugular venous distention. No limb edema. VITAL SIGNS: His heart rate was 68, blood pressure was 148/77, temperature was 98.1, respiratory rate was 20, and oxygen saturation was 98%. The rest of the clinical exam is stable. LABORATORY DATA: Showed hemoglobin 9.4, hematocrit 28.5. His chemistry showed a serum sodium 139, potassium 3.9, chloride 105, bicarbonate 28, anion gap of 6, BUN 38, creatinine 2.9, estimated GFR was 21 mL per minute. Her glucose 116, calcium was 8.4, phosphorus 3.2 and magnesium was 4.4. ASSESSMENT: 1. Xdvsv-tf-iiewvma kidney injury for which he has had temporary dialysis, catheter placed and is now on hemodialysis. 2. Clostridium difficile colitis, recurrent bouts of diarrhea for which he is now on oral vancomycin, lactobacillus and cholestyramine. His diarrhea is subsiding. 3. Other medical problems include: A. Benign prostatic hypertrophy with bladder outlet obstruction requiring indwelling Bledsoe catheter. B. Hypothyroidism. C. Hypogonadism. D. Neurofibromatosis. E. Type 2 diabetes mellitus. F. Chronic fatigue syndrome. G. Chronic pain syndrome due to infected left shoulder prosthesis with growth of group B Streptococcus, treated with IV ceftriaxone for 6 weeks. He has been on suppressive therapy in the form of cefdinir. He was initially started on Keflex; however, he developed severe leukopenia that has since resolved. PLAN: To continue with oral vancomycin. Continue with oral lactobacillus and cholestyramine and continue with pain management. Continue to monitor his blood sugar and adjust insulin as needed. Continue with hemodialysis. KERI DIGGS MD DR: PAIGE/chastity JOB#: [id number] / [id number]
--- NOTE | 2019-09-17 11:16 | PDOC ---
Infectious Disease Note Subjective: Subjective Pt feeling better no more loose bm Denies N/V/cramps No fevers Vital Signs: Vital Signs Vital Signs Date Time Temp Pulse Resp B/P (MAP) Pulse Ox O2 Delivery O2 Flow Rate FiO2 09/17/19 08:16 98.1 68 20 148/77 (100) 98 Room Air 98.1 Physical Exam: PHYSICAL EXAM GENERAL: Propped up in bed, alert, NAD HEENT: Oral cavity clear NECK: Supple LUNGS: Clear. HEART: S1, S2 ABDOMEN: Obese, + hernia, soft, nontender, + BS : Bledsoe in place EXTREMITIES: Mild pitting edema present. Left calcaneal has a small wound, heel protector NEUROLOGIC: Alert, oriented, able to move all the extremities, but very weak and debilitated. Temp RIJ/HDC (09/14) without signs of complications Medications: Inpatient Meds: Current Medications Medications (Trade) Dose Ordered Sig/Lauren Start Time Stop Time Status Last Admin Dose Admin Acetaminophen (Tylenol) 500 mg 1X PRN PRN 09/15/19 11:45 09/16/19 11:44 DC Ascorbic Acid (Vitamin C) 500 mg DAILY 09/11/19 09:00 09/16/19 08:24 500 MG Aspirin (Ecotrin) 81 mg DAILYWBKFT 09/15/19 08:00 09/16/19 08:26 81 MG Atorvastatin Calcium (Lipitor) 20 mg DAILY 09/11/19 09:00 09/16/19 08:26 20 MG Azithromycin 250 ml @ 250 mls/hr 1X STAT 09/10/19 17:12 09/10/19 18:11 DC 09/10/19 17:12 250 MLS/HR Bisacodyl (Dulcolax Supp) 10 mg PRN DAILY PRN 09/10/19 23:30 Cefdinir (Omnicef) 300 mg BID 09/14/19 10:15 09/16/19 20:31 300 MG Ceftriaxone Sodium (Rocephin) 1 gm 1X STAT 09/10/19 17:12 09/10/19 17:13 UNV Cholestyramine Resin (Questran Light) 4 gm BID 09/13/19 11:00 09/16/19 20:31 4 GM Dextrose (Dextrose 50%-Water Syringe) 12.5 gm PRN Q15MIN PRN 09/10/19 23:45 Diphenhydramine HCl (Benadryl) 25 mg 1X PRN PRN 09/15/19 11:45 09/16/19 11:44 DC Famotidine (Pepcid) 20 mg QHS 09/12/19 21:00 09/16/19 20:32 20 MG Fentanyl (Duragesic 50mcg/ Hr Patch) 1 patch Q3DAYS 09/13/19 09:00 09/16/19 09:00 1 PATCH Finasteride (Proscar) 5 mg DAILY 09/11/19 09:00 09/16/19 08:26 5 MG Gadoterate Meglumine (Dotarem) 5 ml 1X ONCE 09/14/19 13:00 09/14/19 13:01 DC 09/14/19 12:55 5 ML Hydrocortisone Sodium Succinate (Solu-CORTEF) 250 mg STK-MED ONCE 09/14/19 12:50 09/14/19 12:50 DC Hydromorphone HCl (Dilaudid) 2 mg PRN Q3HRS PRN 09/11/19 13:15 09/17/19 04:17 2 MG Info (PHARMACY MONITORING -- do not chart) 1 each PRN DAILY PRN 09/15/19 11:45 UNV Insulin Glargine (Lantus Syringe) 16 unit QHS 09/11/19 21:00 09/16/19 21:58 16 UNIT Insulin Human Lispro (HumaLOG) 0-9 UNITS TIDWMEALS 09/11/19 08:00 09/16/19 17:46 5 UNITS Iohexol (Omnipaque 240 Mg/ml) 50 ml STK-MED ONCE 09/14/19 12:50 09/14/19 12:51 DC Lactobacillus Rhamnosus (Culturelle) 1 cap BID 09/11/19 09:00 09/16/19 20:31 1 CAP Levothyroxine Sodium (Synthroid) 200 mcg DAILY06 09/11/19 06:00 09/17/19 05:56 200 MCG Lidocaine HCl (Buffered Lidocaine 1%) 3 ml 1X ONCE 09/14/19 12:30 09/14/19 12:31 DC 09/14/19 12:30 5 ML Lubiprostone (Amitiza) 24 mcg BIDWMEALS 09/11/19 08:00 09/16/19 17:12 24 MCG Magnesium Sulfate 50 ml @ 25 mls/hr PRN DAILY PRN 09/16/19 12:15 Meropenem 500 mg/ Sodium Chloride 50 ml @ 100 mls/hr 1X ONCE 09/10/19 17:45 09/10/19 18:14 DC 09/10/19 17:56 100 MLS/HR Metoprolol Tartrate (Lopressor) 25 mg BID 09/14/19 09:30 09/16/19 20:37 25 MG Morphine Sulfate (Ms Contin) 60 mg TID 09/11/19 09:00 09/16/19 20:32 60 MG Multivitamins (Thera M Plus) 1 tab DAILY 09/11/19 09:00 09/16/19 08:27 1 TAB Non-Formulary Medication (Methylnaltrexone [place] (Relistor)) 150 mg DAILY 09/11/19 09:00 09/12/19 15:54 DC Ondansetron HCl (Zofran Odt) 4 mg PRN Q8HRS PRN 09/10/19 23:45 Pantoprazole Sodium (Protonix) 40 mg DAILYAC 09/11/19 07:30 09/11/19 11:47 DC 09/11/19 08:28 40 MG Pharmacy Consult (C.diff Med Screen By Rx) 1 each 1X ONCE 09/10/19 22:30 09/10/19 22:31 DC 09/10/19 22:30 1 EACH Sennosides (Senna) 8.6 mg DAILY 09/11/19 09:00 09/16/19 08:24 8.6 MG Sodium Chloride 1,000 ml @ 400 mls/hr Q2H30M PRN 09/15/19 11:45 09/15/19 23:44 DC Tamsulosin HCl (Flomax) 0.4 mg DAILY 09/11/19 09:00 09/16/19 08:26 0.4 MG Vancomycin HCl (Vanco Per Pharmacy) 1 each PRN DAILY PRN 09/11/19 09:15 09/11/19 12:49 DC Vancomycin HCl (Vancomycin Oral Solution) 125 mg [id number] 09/11/19 13:00 09/16/19 20:31 125 MG Vancomycin HCl 1.5 gm/Sodium Chloride 500 ml @ 250 mls/hr 1X ONCE 09/10/19 17:45 09/10/19 19:44 DC 09/10/19 19:37 250 MLS/HR Labs: Lab Laboratory Tests Test 09/16/19 11:25 09/16/19 16:51 09/16/19 20:40 09/17/19 03:15 Glucose (Fingerstick) 187 mg/dL (70-99) 209 mg/dL (70-99) 130 mg/dL (70-99) Hemoglobin 9.4 g/dL (13.0-17.5) Hematocrit 28.5 % (39.0-53.0) Sodium Level 139 mmol/L (136-145) Potassium Level 3.9 mmol/L (3.5-5.1) Chloride Level 105 mmol/L (98-107) Carbon Dioxide Level 28 mmol/L (21-32) Anion Gap 6 (6-14) Blood Urea Nitrogen 38 mg/dL (8-26) Creatinine 2.9 mg/dL (0.7-1.3) Estimated GFR (Cockcroft-Gault) 21.2 Glucose Level 116 mg/dL (70-99) Calcium Level 8.4 mg/dL (8.5-10.1) Phosphorus Level 3.2 mg/dL (2.6-4.7) Magnesium Level 4.4 mg/dL (1.8-2.4) Albumin 2.0 g/dL (3.4-5.0) Test 09/17/19 08:37 Glucose (Fingerstick) 92 mg/dL (70-99) Objective: Assessment: Pancolitis with diarrhea, C. 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 Acute on chronic renal failure, requiring HD Dislocated shoulder with infection with group B strep in the past. Coronary artery disease. Debility and self-care problem. Plan: Plan of Care Continue cholestyramine Continue po vanc Continue po cefdinir for his shoulder, chronic suppression ( keflex caused neutropenia ) Maintain hydration d/w BLU Fields MD Sep 17, 2019 11:16
--- NOTE | 2019-09-17 14:18 | NUR ---
AUDREY following pt. Spoke with RN and awaiting on kidney function to improve to decide on OP HD need. AUDREY faxed updates to [place]. Will continue to follow.
[2019-09-17 15:49] VITALS: BP 164/76
--- NOTE | 2019-09-17 15:59 | PDOC ---
SUBJECTIVE ROS No new complaints /concerns voiced by RN or Pt OBJECTIVE Vital Signs Vital Signs Date Time Temp Pulse Resp B/P (MAP) Pulse Ox O2 Delivery O2 Flow Rate FiO2 09/17/19 15:49 98.4 71 18 164/76 (105) 98 Room Air 98.4 I & 0 Intake and Output 09/17/19 07:00 Output Total 1150 ml Balance -1150 ml Output Urine Total 1150 ml PHYSICAL EXAM Physical Exam GENERAL: NAD HEENT: Oral cavity clear NECK: Supple LUNGS: Clear. HEART: S1, S2 ABDOMEN: Obese, + hernia, soft, nontender, + BS : Bledsoe in place EXTREMITIES: Mild pitting edema present. 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 Coronary artery disease Anemia- NEHA per protocol for goal Hgb 10-11 COMMENT/RELEVANT DATA Meds Current Medications Medications (Trade) Dose Ordered Sig/Lauren Start Time Stop Time Status Last Admin Dose Admin Acetaminophen (Tylenol) 500 mg 1X PRN PRN 09/15/19 11:45 09/16/19 11:44 DC Ascorbic Acid (Vitamin C) 500 mg DAILY 09/11/19 09:00 09/17/19 09:00 500 MG Aspirin (Ecotrin) 81 mg DAILYWBKFT 09/15/19 08:00 09/17/19 09:45 81 MG Atorvastatin Calcium (Lipitor) 20 mg DAILY 09/11/19 09:00 09/16/19 08:26 20 MG Azithromycin 250 ml @ 250 mls/hr 1X STAT 09/10/19 17:12 09/10/19 18:11 DC 09/10/19 17:12 250 MLS/HR Bisacodyl (Dulcolax Supp) 10 mg PRN DAILY PRN 09/10/19 23:30 Cefdinir (Omnicef) 300 mg BID 09/14/19 10:15 09/17/19 09:45 300 MG Ceftriaxone Sodium (Rocephin) 1 gm 1X STAT 09/10/19 17:12 09/10/19 17:13 UNV Cholestyramine Resin (Questran Light) 4 gm BID 09/13/19 11:00 09/17/19 09:45 4 GM Dextrose (Dextrose 50%-Water Syringe) 12.5 gm PRN Q15MIN PRN 09/10/19 23:45 Diphenhydramine HCl (Benadryl) 25 mg 1X PRN PRN 09/15/19 11:45 09/16/19 11:44 DC Famotidine (Pepcid) 20 mg QHS 09/12/19 21:00 09/16/19 20:32 20 MG Fentanyl (Duragesic 50mcg/ Hr Patch) 1 patch Q3DAYS 09/13/19 09:00 09/16/19 09:00 1 PATCH Finasteride (Proscar) 5 mg DAILY 09/11/19 09:00 09/17/19 09:45 5 MG Gadoterate Meglumine (Dotarem) 5 ml 1X ONCE 09/14/19 13:00 09/14/19 13:01 DC 09/14/19 12:55 5 ML Hydrocortisone Sodium Succinate (Solu-CORTEF) 250 mg STK-MED ONCE 09/14/19 12:50 09/14/19 12:50 DC Hydromorphone HCl (Dilaudid) 2 mg PRN Q3HRS PRN 09/11/19 13:15 09/17/19 13:40 2 MG Info (PHARMACY MONITORING -- do not chart) 1 each PRN DAILY PRN 09/15/19 11:45 UNV Insulin Glargine (Lantus Syringe) 16 unit QHS 09/11/19 21:00 09/16/19 21:58 16 UNIT Insulin Human Lispro (HumaLOG) 0-9 UNITS TIDWMEALS 09/11/19 08:00 09/16/19 17:46 5 UNITS Iohexol (Omnipaque 240 Mg/ml) 50 ml STK-MED ONCE 09/14/19 12:50 09/14/19 12:51 DC Lactobacillus Rhamnosus (Culturelle) 1 cap BID 09/11/19 09:00 09/17/19 09:45 1 CAP Levothyroxine Sodium (Synthroid) 200 mcg DAILY06 09/11/19 06:00 09/17/19 05:56 200 MCG Lidocaine HCl (Buffered Lidocaine 1%) 3 ml 1X ONCE 09/14/19 12:30 09/14/19 12:31 DC 09/14/19 12:30 5 ML Lubiprostone (Amitiza) 24 mcg BIDWMEALS 09/11/19 08:00 09/17/19 09:45 24 MCG Magnesium Sulfate 50 ml @ 25 mls/hr PRN DAILY PRN 09/16/19 12:15 Meropenem 500 mg/ Sodium Chloride 50 ml @ 100 mls/hr 1X ONCE 09/10/19 17:45 09/10/19 18:14 DC 09/10/19 17:56 100 MLS/HR Metoprolol Tartrate (Lopressor) 25 mg BID 09/14/19 09:30 09/17/19 09:45 25 MG Morphine Sulfate (Ms Contin) 60 mg TID 09/11/19 09:00 09/17/19 14:34 60 MG Multivitamins (Thera M Plus) 1 tab DAILY 09/11/19 09:00 09/17/19 09:45 1 TAB Non-Formulary Medication (Methylnaltrexone [place] (Relistor)) 150 mg DAILY 09/11/19 09:00 09/12/19 15:54 DC Ondansetron HCl (Zofran Odt) 4 mg PRN Q8HRS PRN 09/10/19 23:45 Pantoprazole Sodium (Protonix) 40 mg DAILYAC 09/11/19 07:30 09/11/19 11:47 DC 09/11/19 08:28 40 MG Pharmacy Consult (C.diff Med Screen By Rx) 1 each 1X ONCE 09/10/19 22:30 09/10/19 22:31 DC 09/10/19 22:30 1 EACH Sennosides (Senna) 8.6 mg DAILY 09/11/19 09:00 09/17/19 09:45 8.6 MG Sodium Chloride 1,000 ml @ 400 mls/hr Q2H30M PRN 09/15/19 11:45 09/15/19 23:44 DC Tamsulosin HCl (Flomax) 0.4 mg DAILY 09/11/19 09:00 09/17/19 09:45 0.4 MG Vancomycin HCl (Vanco Per Pharmacy) 1 each PRN DAILY PRN 09/11/19 09:15 09/11/19 12:49 DC Vancomycin HCl (Vancomycin Oral Solution) 125 mg [id number] 09/11/19 13:00 09/17/19 13:38 125 MG Vancomycin HCl 1.5 gm/Sodium Chloride 500 ml @ 250 mls/hr 1X ONCE 09/10/19 17:45 09/10/19 19:44 DC 09/10/19 19:37 250 MLS/HR Lab Laboratory Tests Test 09/16/19 16:51 09/16/19 20:40 09/17/19 03:15 09/17/19 08:37 Glucose (Fingerstick) 209 mg/dL (70-99) 130 mg/dL (70-99) 92 mg/dL (70-99) Hemoglobin 9.4 g/dL (13.0-17.5) Hematocrit 28.5 % (39.0-53.0) Sodium Level 139 mmol/L (136-145) Potassium Level 3.9 mmol/L (3.5-5.1) Chloride Level 105 mmol/L (98-107) Carbon Dioxide Level 28 mmol/L (21-32) Anion Gap 6 (6-14) Blood Urea Nitrogen 38 mg/dL (8-26) Creatinine 2.9 mg/dL (0.7-1.3) Estimated GFR (Cockcroft-Gault) 21.2 Glucose Level 116 mg/dL (70-99) Calcium Level 8.4 mg/dL (8.5-10.1) Phosphorus Level 3.2 mg/dL (2.6-4.7) Magnesium Level 4.4 mg/dL (1.8-2.4) Albumin 2.0 g/dL (3.4-5.0) Hepatitis B Core Total Antibody Nonreactive (Nonreactive) Test 09/17/19 12:00 Glucose (Fingerstick) 126 mg/dL (70-99) Results All relevant outside records, renal labs, imaging studies, telemetry/EKG's were reviewed. GUNNAR IGLESIAS MD Sep 17, 2019 15:59
[2019-09-17] MEDS: ATORVASTATIN CALCIUM 20 MG TABLET PO SCH (17:23)
[2019-09-17 19:49] VITALS: BP 127/63
[2019-09-17] MEDS: FAMOTIDINE 20 MG TABLET. PO SCH (21:03)
[2019-09-17] MEDS: INSULIN GLARGINE SYRINGE. SQ SCH (21:08)
[2019-09-17 23:50] VITALS: BP 144/64
[2019-09-18 03:40] VITALS: BP 139/58
[2019-09-18] MEDS: HYDROmorphone 2 MG/ML VIAL IVP PRN ×5 (04:45→21:31)
[2019-09-18 05:40] LABS: CALCIUM 8.5 mg/dL (8.5-10.1); CREATININE 3.2 mg/dL (0.7-1.3); GFR 18.9; PHOSPHORUS 3.8 mg/dL (2.6-4.7)
[2019-09-18] MEDS: LEVOTHYROXINE 100 MCG TABLET PO SCH (06:28)
[2019-09-18 07:00] VITALS: BP 167/74
--- NOTE | 2019-09-18 07:35 | PDOC ---
Infectious Disease Note Subjective: Subjective feels better less diarrhea Vital Signs: Vital Signs Vital Signs Date Time Temp Pulse Resp B/P (MAP) Pulse Ox O2 Delivery O2 Flow Rate FiO2 09/18/19 05:15 Room Air 09/18/19 03:40 98.1 61 16 139/58 (85) 96 98.1 Physical Exam: PHYSICAL EXAM GENERAL: Propped up in bed, alert, NAD HEENT: Oral cavity clear NECK: Supple LUNGS: Clear. HEART: S1, S2 ABDOMEN: Obese, + hernia, soft, nontender, + BS : Bledsoe in place EXTREMITIES: Mild pitting edema present. Left calcaneal has a small wound, heel protector NEUROLOGIC: Alert, oriented, able to move all the extremities, but very weak and debilitated. Temp RIJ/HDC (09/14) without signs of complications Medications: Inpatient Meds: Current Medications Medications (Trade) Dose Ordered Sig/Lauren Start Time Stop Time Status Last Admin Dose Admin Acetaminophen (Tylenol) 500 mg 1X PRN PRN 09/15/19 11:45 09/16/19 11:44 DC Ascorbic Acid (Vitamin C) 500 mg DAILY 09/11/19 09:00 09/17/19 09:00 500 MG Aspirin (Ecotrin) 81 mg DAILYWBKFT 09/15/19 08:00 09/17/19 09:45 81 MG Atorvastatin Calcium (Lipitor) 20 mg DAILY 09/11/19 09:00 09/17/19 17:23 20 MG Azithromycin 250 ml @ 250 mls/hr 1X STAT 09/10/19 17:12 09/10/19 18:11 DC 09/10/19 17:12 250 MLS/HR Bisacodyl (Dulcolax Supp) 10 mg PRN DAILY PRN 09/10/19 23:30 Cefdinir (Omnicef) 300 mg BID 09/14/19 10:15 09/17/19 21:03 300 MG Ceftriaxone Sodium (Rocephin) 1 gm 1X STAT 09/10/19 17:12 09/10/19 17:13 UNV Cholestyramine Resin (Questran Light) 4 gm BID 09/13/19 11:00 09/17/19 21:03 4 GM Dextrose (Dextrose 50%-Water Syringe) 12.5 gm PRN Q15MIN PRN 09/10/19 23:45 Diphenhydramine HCl (Benadryl) 25 mg 1X PRN PRN 09/15/19 11:45 09/16/19 11:44 DC Famotidine (Pepcid) 20 mg QHS 09/12/19 21:00 09/17/19 21:03 20 MG Fentanyl (Duragesic 50mcg/ Hr Patch) 1 patch Q3DAYS 09/13/19 09:00 09/16/19 09:00 1 PATCH Finasteride (Proscar) 5 mg DAILY 09/11/19 09:00 09/17/19 09:45 5 MG Gadoterate Meglumine (Dotarem) 5 ml 1X ONCE 09/14/19 13:00 09/14/19 13:01 DC 09/14/19 12:55 5 ML Hydrocortisone Sodium Succinate (Solu-CORTEF) 250 mg STK-MED ONCE 09/14/19 12:50 09/14/19 12:50 DC Hydromorphone HCl (Dilaudid) 2 mg PRN Q3HRS PRN 09/11/19 13:15 09/18/19 04:45 2 MG Info (PHARMACY MONITORING -- do not chart) 1 each PRN DAILY PRN 09/15/19 11:45 UNV Insulin Glargine (Lantus Syringe) 16 unit QHS 09/11/19 21:00 09/17/19 21:08 16 UNIT Insulin Human Lispro (HumaLOG) 0-9 UNITS TIDWMEALS 09/11/19 08:00 09/17/19 17:28 5 UNITS Iohexol (Omnipaque 240 Mg/ml) 50 ml STK-MED ONCE 09/14/19 12:50 09/14/19 12:51 DC Lactobacillus Rhamnosus (Culturelle) 1 cap BID 09/11/19 09:00 09/17/19 21:02 1 CAP Levothyroxine Sodium (Synthroid) 200 mcg DAILY06 09/11/19 06:00 09/18/19 06:28 200 MCG Lidocaine HCl (Buffered Lidocaine 1%) 3 ml 1X ONCE 09/14/19 12:30 09/14/19 12:31 DC 09/14/19 12:30 5 ML Lubiprostone (Amitiza) 24 mcg BIDWMEALS 09/11/19 08:00 09/17/19 17:23 24 MCG Magnesium Sulfate 50 ml @ 25 mls/hr PRN DAILY PRN 09/16/19 12:15 Meropenem 500 mg/ Sodium Chloride 50 ml @ 100 mls/hr 1X ONCE 09/10/19 17:45 09/10/19 18:14 DC 09/10/19 17:56 100 MLS/HR Metoprolol Tartrate (Lopressor) 25 mg BID 09/14/19 09:30 09/17/19 21:02 25 MG Morphine Sulfate (Ms Contin) 60 mg TID 09/11/19 09:00 09/17/19 21:07 60 MG Multivitamins (Thera M Plus) 1 tab DAILY 09/11/19 09:00 09/17/19 09:45 1 TAB Non-Formulary Medication (Methylnaltrexone [place] (Relistor)) 150 mg DAILY 09/11/19 09:00 09/12/19 15:54 DC Ondansetron HCl (Zofran Odt) 4 mg PRN Q8HRS PRN 09/10/19 23:45 Pantoprazole Sodium (Protonix) 40 mg DAILYAC 09/11/19 07:30 09/11/19 11:47 DC 09/11/19 08:28 40 MG Pharmacy Consult (C.diff Med Screen By Rx) 1 each 1X ONCE 09/10/19 22:30 09/10/19 22:31 DC 09/10/19 22:30 1 EACH Sennosides (Senna) 8.6 mg DAILY 09/11/19 09:00 09/17/19 09:45 8.6 MG Sodium Chloride 1,000 ml @ 400 mls/hr Q2H30M PRN 09/15/19 11:45 09/15/19 23:44 DC Tamsulosin HCl (Flomax) 0.4 mg DAILY 09/11/19 09:00 09/17/19 09:45 0.4 MG Vancomycin HCl (Vanco Per Pharmacy) 1 each PRN DAILY PRN 09/11/19 09:15 09/11/19 12:49 DC Vancomycin HCl (Vancomycin Oral Solution) 125 mg [id number] 09/11/19 13:00 09/17/19 21:03 125 MG Vancomycin HCl 1.5 gm/Sodium Chloride 500 ml @ 250 mls/hr 1X ONCE 09/10/19 17:45 09/10/19 19:44 DC 09/10/19 19:37 250 MLS/HR Labs: Lab Laboratory Tests Test 09/17/19 08:37 09/17/19 12:00 09/17/19 17:17 09/17/19 21:01 Glucose (Fingerstick) 92 mg/dL (70-99) 126 mg/dL (70-99) 204 mg/dL (70-99) 176 mg/dL (70-99) Test 09/18/19 03:39 Sodium Level 139 mmol/L (136-145) Potassium Level 4.0 mmol/L (3.5-5.1) Chloride Level 105 mmol/L (98-107) Carbon Dioxide Level 26 mmol/L (21-32) Anion Gap 8 (6-14) Blood Urea Nitrogen 39 mg/dL (8-26) Creatinine 3.2 mg/dL (0.7-1.3) Estimated GFR (Cockcroft-Gault) 18.9 Glucose Level 113 mg/dL (70-99) Calcium Level 8.5 mg/dL (8.5-10.1) Phosphorus Level 3.8 mg/dL (2.6-4.7) Magnesium Level 1.8 mg/dL (1.8-2.4) Albumin 2.0 g/dL (3.4-5.0) Objective: Assessment: Pancolitis with diarrhea, C. 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 Acute on chronic renal failure, requiring HD Dislocated shoulder with infection with group B strep in the past. Coronary artery disease. Debility and self-care problem. Plan: Plan of Care Continue cholestyramine Continue po vanc Continue po cefdinir for his shoulder, chronic suppression ( keflex caused neutropenia ) BLU PEACE MD Sep 18, 2019 07:35
[2019-09-18] MEDS ORDERED: IV NORMAL SALINE 1000ML BAG 1,000 ML IV PRN ×2 (07:56)
[2019-09-18] MEDS: ASPIRIN ENTERIC COATED 81 MG TABLET.DR. PO SCH (08:00)
[2019-09-18] MEDS ORDERED: 0.9 % SODIUM CHLORIDE 10 ML DISP.SYRIN. IV PRN ×2 (08:00)
[2019-09-18] MEDS ORDERED: DIALYSIS PATIENT. MC PRN ×2 (08:00)
[2019-09-18] MEDS ORDERED: ALBUMIN HUMAN 25% 200 ML IV PRN (08:00)
[2019-09-18] MEDS: INSULIN LISPRO 300 UNITS/3 ML VIAL. SQ SCH ×3 (08:00→17:21)
--- NOTE | 2019-09-18 08:06 | PDOC ---
SUBJECTIVE ROS UOP marginal,has Bledsoe no complaints OBJECTIVE Vital Signs Vital Signs Date Time Temp Pulse Resp B/P (MAP) Pulse Ox O2 Delivery O2 Flow Rate FiO2 09/18/19 05:15 Room Air 09/18/19 03:40 98.1 61 16 139/58 (85) 96 98.1 I & 0 Intake and Output 09/18/19 07:00 Intake Total 300 ml Output Total 550 ml Balance -250 ml Intake Oral 300 ml Output Urine Total 550 ml PHYSICAL EXAM Physical Exam GENERAL: NAD HEENT: Oral cavity clear NECK: Supple LUNGS: Clear. HEART: S1, S2 ABDOMEN: Obese, + hernia, soft, nontender, + BS : Bledsoe in place EXTREMITIES: Mild pitting edema present. Left calcaneal has a small wound, NEUROLOGIC: Alert, oriented, Temp RIJ/HDC (09/14) DIAGNOSIS/ASSESSMENT Assessment & Plan Acute on chronic renal failure, requiring HD No renal recovery ,seen on HD, tolerating well, continue as ordered, Jamie Edgar Access- Temp HDC , will need Tunneled HDC and SW consult for OP chair time Pancolitis with diarrhea, C. 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 Coronary artery disease Anemia- NEHA per protocol for goal Hgb 10-11 COMMENT/RELEVANT DATA Meds Current Medications Medications (Trade) Dose Ordered Sig/Lauren Start Time Stop Time Status Last Admin Dose Admin Acetaminophen (Tylenol) 500 mg 1X PRN PRN 09/15/19 11:45 09/16/19 11:44 DC Albumin Human 200 ml @ 200 mls/hr 1X PRN PRN 09/18/19 08:00 09/18/19 13:59 Ascorbic Acid (Vitamin C) 500 mg DAILY 09/11/19 09:00 09/17/19 09:00 500 MG Aspirin (Ecotrin) 81 mg DAILYWBKFT 09/15/19 08:00 09/17/19 09:45 81 MG Atorvastatin Calcium (Lipitor) 20 mg DAILY 09/11/19 09:00 09/17/19 17:23 20 MG Azithromycin 250 ml @ 250 mls/hr 1X STAT 09/10/19 17:12 09/10/19 18:11 DC 09/10/19 17:12 250 MLS/HR Bisacodyl (Dulcolax Supp) 10 mg PRN DAILY PRN 09/10/19 23:30 Cefdinir (Omnicef) 300 mg BID 09/14/19 10:15 09/17/19 21:03 300 MG Ceftriaxone Sodium (Rocephin) 1 gm 1X STAT 09/10/19 17:12 09/10/19 17:13 UNV Cholestyramine Resin (Questran Light) 4 gm BID 09/13/19 11:00 09/17/19 21:03 4 GM Dextrose (Dextrose 50%-Water Syringe) 12.5 gm PRN Q15MIN PRN 09/10/19 23:45 Diphenhydramine HCl (Benadryl) 25 mg 1X PRN PRN 09/15/19 11:45 09/16/19 11:44 DC Famotidine (Pepcid) 20 mg QHS 09/12/19 21:00 09/17/19 21:03 20 MG Fentanyl (Duragesic 50mcg/ Hr Patch) 1 patch Q3DAYS 09/13/19 09:00 09/16/19 09:00 1 PATCH Finasteride (Proscar) 5 mg DAILY 09/11/19 09:00 09/17/19 09:45 5 MG Gadoterate Meglumine (Dotarem) 5 ml 1X ONCE 09/14/19 13:00 09/14/19 13:01 DC 09/14/19 12:55 5 ML Hydrocortisone Sodium Succinate (Solu-CORTEF) 250 mg STK-MED ONCE 09/14/19 12:50 09/14/19 12:50 DC Hydromorphone HCl (Dilaudid) 2 mg PRN Q3HRS PRN 09/11/19 13:15 09/18/19 04:45 2 MG Info (PHARMACY MONITORING -- do not chart) 1 each PRN DAILY PRN 09/18/19 08:00 UNV Insulin Glargine (Lantus Syringe) 16 unit QHS 09/11/19 21:00 09/17/19 21:08 16 UNIT Insulin Human Lispro (HumaLOG) 0-9 UNITS TIDWMEALS 09/11/19 08:00 09/17/19 17:28 5 UNITS Iohexol (Omnipaque 240 Mg/ml) 50 ml STK-MED ONCE 09/14/19 12:50 09/14/19 12:51 DC Lactobacillus Rhamnosus (Culturelle) 1 cap BID 09/11/19 09:00 09/17/19 21:02 1 CAP Levothyroxine Sodium (Synthroid) 200 mcg DAILY06 09/11/19 06:00 09/18/19 06:28 200 MCG Lidocaine HCl (Buffered Lidocaine 1%) 3 ml 1X ONCE 09/14/19 12:30 09/14/19 12:31 DC 09/14/19 12:30 5 ML Lubiprostone (Amitiza) 24 mcg BIDWMEALS 09/11/19 08:00 09/17/19 17:23 24 MCG Magnesium Sulfate 50 ml @ 25 mls/hr PRN DAILY PRN 09/16/19 12:15 Meropenem 500 mg/ Sodium Chloride 50 ml @ 100 mls/hr 1X ONCE 09/10/19 17:45 09/10/19 18:14 DC 09/10/19 17:56 100 MLS/HR Metoprolol Tartrate (Lopressor) 25 mg BID 09/14/19 09:30 09/17/19 21:02 25 MG Morphine Sulfate (Ms Contin) 60 mg TID 09/11/19 09:00 09/17/19 21:07 60 MG Multivitamins (Thera M Plus) 1 tab DAILY 09/11/19 09:00 09/17/19 09:45 1 TAB Non-Formulary Medication (Methylnaltrexone [place] (Relistor)) 150 mg DAILY 09/11/19 09:00 09/12/19 15:54 DC Ondansetron HCl (Zofran Odt) 4 mg PRN Q8HRS PRN 09/10/19 23:45 Pantoprazole Sodium (Protonix) 40 mg DAILYAC 09/11/19 07:30 09/11/19 11:47 DC 09/11/19 08:28 40 MG Pharmacy Consult (C.diff Med Screen By Rx) 1 each 1X ONCE 09/10/19 22:30 09/10/19 22:31 DC 09/10/19 22:30 1 EACH Sennosides (Senna) 8.6 mg DAILY 09/11/19 09:00 09/17/19 09:45 8.6 MG Sodium Chloride 1,000 ml @ 400 mls/hr Q2H30M PRN 09/18/19 07:56 09/18/19 19:55 Sodium Chloride (Normal Saline Flush) 10 ml 1X PRN PRN 09/18/19 08:00 09/19/19 07:59 Tamsulosin HCl (Flomax) 0.4 mg DAILY 09/11/19 09:00 09/17/19 09:45 0.4 MG Vancomycin HCl (Vanco Per Pharmacy) 1 each PRN DAILY PRN 09/11/19 09:15 09/11/19 12:49 DC Vancomycin HCl (Vancomycin Oral Solution) 125 mg [id number] 09/11/19 13:00 09/17/19 21:03 125 MG Vancomycin HCl 1.5 gm/Sodium Chloride 500 ml @ 250 mls/hr 1X ONCE 09/10/19 17:45 09/10/19 19:44 DC 09/10/19 19:37 250 MLS/HR Lab Laboratory Tests Test 09/17/19 08:37 09/17/19 12:00 09/17/19 17:17 09/17/19 21:01 Glucose (Fingerstick) 92 mg/dL (70-99) 126 mg/dL (70-99) 204 mg/dL (70-99) 176 mg/dL (70-99) Test 09/18/19 03:39 09/18/19 07:25 Sodium Level 139 mmol/L (136-145) Potassium Level 4.0 mmol/L (3.5-5.1) Chloride Level 105 mmol/L (98-107) Carbon Dioxide Level 26 mmol/L (21-32) Anion Gap 8 (6-14) Blood Urea Nitrogen 39 mg/dL (8-26) Creatinine 3.2 mg/dL (0.7-1.3) Estimated GFR (Cockcroft-Gault) 18.9 Glucose Level 113 mg/dL (70-99) Calcium Level 8.5 mg/dL (8.5-10.1) Phosphorus Level 3.8 mg/dL (2.6-4.7) Magnesium Level 1.8 mg/dL (1.8-2.4) Albumin 2.0 g/dL (3.4-5.0) Glucose (Fingerstick) 100 mg/dL (70-99) Results All relevant outside records, renal labs, imaging studies, telemetry/EKG's were reviewed. GUNNAR IGLESIAS MD Sep 18, 2019 08:06
[2019-09-18] MEDS: VANCOMYCIN 125 MG/2.5 ML ORAL SOLUTION. PO SCH ×4 (08:16→21:22)
[2019-09-18] MEDS: MORPHINE ER 30 MG TABLET.ER PO SCH ×3 (08:16→21:15)
[2019-09-18] MEDS: METOPROLOL TART IMMED RELEASE 25 MG TABLET. PO SCH ×2 (08:17→21:15)
[2019-09-18 11:00] VITALS: BP 158/70
--- NOTE | 2019-09-18 12:22 | PN ---
DATE: 09/18/2019 SUBJECTIVE: The patient is resting, slightly propped up in bed, having his scheduled hemodialysis. On questioning him, he denied any complaint. His last bowel movement was 2 days ago and was formed. He is making a significant amount of urine, in fact his urine output yesterday was 1150 and it seems that his kidney function is turning the corner. PHYSICAL EXAMINATION: GENERAL: When I examined him this morning, he was pale, but no jaundice, cyanosis or thyromegaly. No jugular venous distention or limb edema. VITAL SIGNS: His heart rate was 61, blood pressure was 139/58, temperature was 98.1, respiratory rate was 16, and oxygen saturation was 96%. HEAD, EYES, EARS, NOSE AND THROAT: Showed normocephalic, atraumatic. NECK: Supple. HEART: Showed normal first and second heart sounds. No gallop, rub or murmur. CHEST: Clear to auscultation. No crepitation or rhonchi. ABDOMEN: Distended, soft, nontender. NEUROLOGIC: He is awake, alert, responding appropriately. All cranial nerves are intact. He moves his upper extremities to much good extent than lower extremities. He is mostly bedbound, chair bound. His intake over the last 24 hours was incompletely recorded, output was 1150. LABORATORY DATA: As of this morning, his serum sodium was 139, potassium 4, chloride 105, bicarbonate 26, anion gap of 8, BUN 39, creatinine 3.2, estimated GFR was 18.9, glucose was 113, calcium was 8.5, phosphorus 3.8, magnesium was 1.8, albumin was 2. His hemoglobin was 9.4 and hematocrit was 28.5. ASSESSMENT: 1. Acute on chronic kidney injury for which he has had hemodialysis catheter placed and is now on hemodialysis, although his urine output is picking up hopefully indicating that the patient's kidney function might be improving. 2. Clostridium difficile colitis with recurrent bouts of diarrhea for which he is now on oral vancomycin, lactobacillus and cholestyramine and his diarrhea has subsided. 3. Other medical problems include: A. Benign prostatic hypertrophy with bladder outlet obstruction requiring indwelling Bledsoe catheter. B. Hypothyroidism. C. Hypogonadism. D. Neurofibromatosis. E. Type 2 diabetes mellitus. F. Chronic fatigue syndrome. G. Chronic pain syndrome due to infected left shoulder prosthesis with growth of group B Streptococcus treated with IV ceftriaxone for 6 weeks. He has been on suppressive therapy in the form of cefdinir. He was initially started on Keflex; however, he developed severe leukopenia that has since resolved. PLAN: To continue with oral vancomycin, lactobacillus and cholestyramine. Continue to monitor his kidney function and urine output. Continue with hemodialysis as per Nephrology team. Continue to monitor his blood sugar and adjust insulin as needed. KERI DIGGS MD DR: PAIGE/chastity JOB#: [id number] / [id number]
[2019-09-18] MEDS: LACTOBACILLUS RHAMNOSUS GG 1 CAPSULE. PO SCH ×2 (13:13→21:15)
[2019-09-18] MEDS: FINASTERIDE 5 MG TABLET. PO SCH (13:13)
[2019-09-18] MEDS: CHOLESTYRAMINE/ASPARTAME 4 GM PACKET PO SCH ×2 (13:13→21:15)
[2019-09-18] MEDS: TAMSULOSIN 0.4 MG CAP.ER.24H. PO SCH (13:13)
[2019-09-18] MEDS: LUBIPROSTONE 24 MCG CAPSULE PO SCH ×2 (13:14→17:14)
[2019-09-18] MEDS: SENNOSIDES 8.6 MG TABLET PO SCH (13:14)
[2019-09-18] MEDS: MULTIVITAMIN with MINERAL TABLET. PO SCH (13:14)
[2019-09-18] MEDS: CEFDINIR 300 MG CAPSULE PO SCH ×2 (13:14→21:14)
--- NOTE | 2019-09-18 13:33 | NUR ---
SW following pt. AUDREY faxed OP HD referral to [facility] admission and left a VM to [facility] for possible placement in [place] location. Pt admission and chair time pending. AUDREY updated Liana at [facility] regarding this.
[2019-09-18 15:23] VITALS: BP 170/57
[2019-09-18] MEDS: ATORVASTATIN CALCIUM 20 MG TABLET PO SCH (17:12)
[2019-09-18] MEDS: ASCORBIC ACID 500 MG TABLET PO SCH (17:13)
[2019-09-18 19:05] VITALS: BP 120/72
[2019-09-18] MEDS: FAMOTIDINE 20 MG TABLET. PO SCH (21:15)
[2019-09-18] MEDS: INSULIN GLARGINE SYRINGE. SQ SCH (21:27)
[2019-09-18 23:45] VITALS: BP 145/64
[2019-09-19 03:31] VITALS: BP 172/80
[2019-09-19] MEDS: LEVOTHYROXINE 100 MCG TABLET PO SCH (05:13)
[2019-09-19 05:14] LABS: ALBUMIN 1.9 g/dL (3.4-5.0); CALCIUM 8.2 mg/dL (8.5-10.1); CREATININE 2.7 mg/dL (0.7-1.3); PHOSPHORUS 3.4 mg/dL (2.6-4.7); POTASSIUM 4.1 mmol/L (3.5-5.1)
[2019-09-19] MEDS: HYDROmorphone 2 MG/ML VIAL IVP PRN ×5 (05:14→20:15)
[2019-09-19 07:57] VITALS: BP 143/61
[2019-09-19] MEDS: INSULIN LISPRO 300 UNITS/3 ML VIAL. SQ SCH ×3 (08:00→18:01)
[2019-09-19] MEDS: CHOLESTYRAMINE/ASPARTAME 4 GM PACKET PO SCH (08:41)
[2019-09-19] MEDS: METOPROLOL TART IMMED RELEASE 25 MG TABLET. PO SCH ×2 (08:42→20:15)
[2019-09-19] MEDS: ASPIRIN ENTERIC COATED 81 MG TABLET.DR. PO SCH (08:42)
[2019-09-19] MEDS: ASCORBIC ACID 500 MG TABLET PO SCH (08:42)
[2019-09-19] MEDS: fentaNYL 50MCG/HR PATCH 1 PATCH PATCH.TD72 TD SCH (08:42)
[2019-09-19] MEDS: MULTIVITAMIN with MINERAL TABLET. PO SCH (08:42)
[2019-09-19] MEDS: CEFDINIR 300 MG CAPSULE PO SCH ×2 (08:42→20:15)
[2019-09-19] MEDS: LACTOBACILLUS RHAMNOSUS GG 1 CAPSULE. PO SCH ×2 (08:43→20:15)
[2019-09-19] MEDS: MORPHINE ER 30 MG TABLET.ER PO SCH ×3 (08:43→23:22)
[2019-09-19] MEDS: SENNOSIDES 8.6 MG TABLET PO SCH (08:43)
[2019-09-19] MEDS: TAMSULOSIN 0.4 MG CAP.ER.24H. PO SCH (08:43)
[2019-09-19] MEDS: VANCOMYCIN 125 MG/2.5 ML ORAL SOLUTION. PO SCH ×4 (08:43→20:15)
[2019-09-19] MEDS: LUBIPROSTONE 24 MCG CAPSULE PO SCH ×2 (08:43→17:56)
[2019-09-19] MEDS: ATORVASTATIN CALCIUM 20 MG TABLET PO SCH (08:43)
[2019-09-19] MEDS: FINASTERIDE 5 MG TABLET. PO SCH (08:43)
--- NOTE | 2019-09-19 09:24 | PDOC ---
Infectious Disease Note Subjective: Subjective feels better no diarrhea cont to have pain and swelling in both upper ext, Lt > rt no f/c/n/v Vital Signs: Vital Signs Vital Signs Date Time Temp Pulse Resp B/P (MAP) Pulse Ox O2 Delivery O2 Flow Rate FiO2 09/19/19 08:43 94 Room Air 09/19/19 08:42 72 143/61 09/19/19 07:57 98.4 20 98.4 Physical Exam: PHYSICAL EXAM GENERAL: Propped up in bed, alert, NAD HEENT: Oral cavity clear NECK: Supple LUNGS: Clear. HEART: S1, S2 ABDOMEN: Obese, + hernia, soft, nontender, + BS : Bledsoe in place EXTREMITIES: Mild pitting edema present. Left calcaneal has a small wound, heel protector NEUROLOGIC: Alert, oriented, able to move all the extremities, but very weak and debilitated. Temp RIJ/HDC (09/14) without signs of complications Medications: Inpatient Meds: Current Medications Medications (Trade) Dose Ordered Sig/Lauren Start Time Stop Time Status Last Admin Dose Admin Acetaminophen (Tylenol) 500 mg 1X PRN PRN 09/15/19 11:45 09/16/19 11:44 DC Albumin Human 200 ml @ 200 mls/hr 1X PRN PRN 09/18/19 08:00 09/18/19 13:59 DC Ascorbic Acid (Vitamin C) 500 mg DAILY 09/11/19 09:00 09/19/19 08:42 500 MG Aspirin (Ecotrin) 81 mg DAILYWBKFT 09/15/19 08:00 09/19/19 08:42 81 MG Atorvastatin Calcium (Lipitor) 20 mg DAILY 09/11/19 09:00 09/19/19 08:43 20 MG Azithromycin 250 ml @ 250 mls/hr 1X STAT 09/10/19 17:12 09/10/19 18:11 DC 09/10/19 17:12 250 MLS/HR Bisacodyl (Dulcolax Supp) 10 mg PRN DAILY PRN 09/10/19 23:30 Cefdinir (Omnicef) 300 mg BID 09/14/19 10:15 09/19/19 08:42 300 MG Ceftriaxone Sodium (Rocephin) 1 gm 1X STAT 09/10/19 17:12 09/10/19 17:13 UNV Cholestyramine Resin (Questran Light) 4 gm BID 09/13/19 11:00 09/19/19 08:41 4 GM Dextrose (Dextrose 50%-Water Syringe) 12.5 gm PRN Q15MIN PRN 09/10/19 23:45 Diphenhydramine HCl (Benadryl) 25 mg 1X PRN PRN 09/15/19 11:45 09/16/19 11:44 DC Famotidine (Pepcid) 20 mg QHS 09/12/19 21:00 09/18/19 21:15 20 MG Fentanyl (Duragesic 50mcg/ Hr Patch) 1 patch Q3DAYS 09/13/19 09:00 09/19/19 08:42 1 PATCH Finasteride (Proscar) 5 mg DAILY 09/11/19 09:00 09/19/19 08:43 5 MG Gadoterate Meglumine (Dotarem) 5 ml 1X ONCE 09/14/19 13:00 09/14/19 13:01 DC 09/14/19 12:55 5 ML Hydrocortisone Sodium Succinate (Solu-CORTEF) 250 mg STK-MED ONCE 09/14/19 12:50 09/14/19 12:50 DC Hydromorphone HCl (Dilaudid) 2 mg PRN Q3HRS PRN 09/11/19 13:15 09/19/19 08:43 2 MG Info (PHARMACY MONITORING -- do not chart) 1 each PRN DAILY PRN 09/18/19 08:00 UNV Insulin Glargine (Lantus Syringe) 16 unit QHS 09/11/19 21:00 09/18/19 21:27 16 UNIT Insulin Human Lispro (HumaLOG) 0-9 UNITS TIDWMEALS 09/11/19 08:00 09/18/19 17:21 4 UNITS Iohexol (Omnipaque 240 Mg/ml) 50 ml STK-MED ONCE 09/14/19 12:50 09/14/19 12:51 DC Lactobacillus Rhamnosus (Culturelle) 1 cap BID 09/11/19 09:00 09/19/19 08:43 1 CAP Levothyroxine Sodium (Synthroid) 200 mcg DAILY06 09/11/19 06:00 09/19/19 05:13 200 MCG Lidocaine HCl (Buffered Lidocaine 1%) 3 ml 1X ONCE 09/14/19 12:30 09/14/19 12:31 DC 09/14/19 12:30 5 ML Lubiprostone (Amitiza) 24 mcg BIDWMEALS 09/11/19 08:00 09/19/19 08:43 24 MCG Magnesium Sulfate 50 ml @ 25 mls/hr PRN DAILY PRN 09/16/19 12:15 Meropenem 500 mg/ Sodium Chloride 50 ml @ 100 mls/hr 1X ONCE 09/10/19 17:45 09/10/19 18:14 DC 09/10/19 17:56 100 MLS/HR Metoprolol Tartrate (Lopressor) 25 mg BID 09/14/19 09:30 09/19/19 08:42 25 MG Morphine Sulfate (Ms Contin) 60 mg TID 09/11/19 09:00 09/19/19 08:43 60 MG Multivitamins (Thera M Plus) 1 tab DAILY 09/11/19 09:00 09/19/19 08:42 1 TAB Non-Formulary Medication (Methylnaltrexone [place] (Relistor)) 150 mg DAILY 09/11/19 09:00 09/12/19 15:54 DC Ondansetron HCl (Zofran Odt) 4 mg PRN Q8HRS PRN 09/10/19 23:45 Pantoprazole Sodium (Protonix) 40 mg DAILYAC 09/11/19 07:30 09/11/19 11:47 DC 09/11/19 08:28 40 MG Pharmacy Consult (C.diff Med Screen By Rx) 1 each 1X ONCE 09/10/19 22:30 09/10/19 22:31 DC 09/10/19 22:30 1 EACH Sennosides (Senna) 8.6 mg DAILY 09/11/19 09:00 09/19/19 08:43 8.6 MG Sodium Chloride 1,000 ml @ 400 mls/hr Q2H30M PRN 09/18/19 07:56 09/18/19 19:55 DC Sodium Chloride (Normal Saline Flush) 10 ml 1X PRN PRN 09/18/19 08:00 09/19/19 07:59 DC Tamsulosin HCl (Flomax) 0.4 mg DAILY 09/11/19 09:00 09/19/19 08:43 0.4 MG Vancomycin HCl (Vanco Per Pharmacy) 1 each PRN DAILY PRN 09/11/19 09:15 09/11/19 12:49 DC Vancomycin HCl (Vancomycin Oral Solution) 125 mg [id number] 09/11/19 13:00 09/19/19 08:43 125 MG Vancomycin HCl 1.5 gm/Sodium Chloride 500 ml @ 250 mls/hr 1X ONCE 09/10/19 17:45 09/10/19 19:44 DC 09/10/19 19:37 250 MLS/HR Labs: Lab Laboratory Tests Test 09/18/19 12:33 09/18/19 16:59 09/18/19 21:02 09/19/19 03:38 Glucose (Fingerstick) 91 mg/dL (70-99) 153 mg/dL (70-99) 112 mg/dL (70-99) Sodium Level 139 mmol/L (136-145) Potassium Level 4.1 mmol/L (3.5-5.1) Chloride Level 105 mmol/L (98-107) Carbon Dioxide Level 28 mmol/L (21-32) Anion Gap 6 (6-14) Blood Urea Nitrogen 28 mg/dL (8-26) Creatinine 2.7 mg/dL (0.7-1.3) Estimated GFR (Cockcroft-Gault) 23.0 Glucose Level 80 mg/dL (70-99) Calcium Level 8.2 mg/dL (8.5-10.1) Phosphorus Level 3.4 mg/dL (2.6-4.7) Magnesium Level 1.8 mg/dL (1.8-2.4) Albumin 1.9 g/dL (3.4-5.0) Test 09/19/19 07:37 Glucose (Fingerstick) 71 mg/dL (70-99) Objective: Assessment: Pancolitis with diarrhea, C. 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 Acute on chronic renal failure, requiring HD Dislocated shoulder with infection with group B strep in the past. Coronary artery disease. Debility and self-care problem. Plan: Plan of Care Continue cholestyramine but qdaily Continue po vanc Continue po cefdinir for his shoulder, chronic suppression ( keflex caused neutropenia ) BLU PEACE MD Sep 19, 2019 09:24
--- NOTE | 2019-09-19 11:15 | NUR ---
SW following pt. Spoke with Hugo this AM. Request is being processed but chair time is not assigned yet. Discussed pt will need placement at [place] location due to proximity of residency and SNF placement. Treatment orders for faxed to [facility]. Chair time pending. Spoke with pt and pt's at bedside and discussed chair time placement process. Discussed with RN.
[2019-09-19 11:45] VITALS: BP 140/58
--- NOTE | 2019-09-19 14:41 | PDOC ---
SUBJECTIVE ROS no complaints OBJECTIVE Vital Signs Vital Signs Date Time Temp Pulse Resp B/P (MAP) Pulse Ox O2 Delivery O2 Flow Rate FiO2 09/19/19 11:45 98.3 69 14 140/58 (85) 96 Room Air 98.3 I & 0 Intake and Output 09/19/19 07:00 Intake Total 650 ml Output Total 750 ml Balance -100 ml Intake Oral 650 ml Output Urine Total 750 ml PHYSICAL EXAM Physical Exam GENERAL: NAD HEENT: Oral cavity clear NECK: Supple LUNGS: Clear. HEART: S1, S2 ABDOMEN: Obese, + hernia, soft, nontender, + BS : Bledsoe in place EXTREMITIES: Mild pitting edema present. Left calcaneal has a small wound, NEUROLOGIC: Alert, oriented, Temp RIJ/HDC (09/14) Acute on chronic renal failure, requiring HD ? vs ESRD No renal recovery , has UOP (600-750 ml24 hrs) Access- Temp HDC , will need Tunneled HDC and SW consult for OP chair time Pancolitis with diarrhea, C. 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 Coronary artery disease Anemia- NEHA per protocol for goal Hgb 10-11 DIAGNOSIS/ASSESSMENT Assessment & Plan ESRD/ARF: Current fluid and E-lyte status does not necessitate emergent need for dialysis. Will re-evaluate for dialysis in the am and continue on [] schedule. ANEMIA; [] Aranap as ordered, [] Transfuse [] with next HD as needed HTN: Current BP meds as reviewed. See orders for changes. BONE & MINERAL: [] Discussed Plan of Care with family [] at bedside [] over the phone COMMENT/RELEVANT DATA Meds Current Medications Medications (Trade) Dose Ordered Sig/Lauren Start Time Stop Time Status Last Admin Dose Admin Acetaminophen (Tylenol) 500 mg 1X PRN PRN 09/15/19 11:45 09/16/19 11:44 DC Albumin Human 200 ml @ 200 mls/hr 1X PRN PRN 09/18/19 08:00 09/18/19 13:59 DC Ascorbic Acid (Vitamin C) 500 mg DAILY 09/11/19 09:00 09/19/19 08:42 500 MG Aspirin (Ecotrin) 81 mg [id number] 09/15/19 08:00 09/19/19 08:42 81 MG Atorvastatin Calcium (Lipitor) 20 mg DAILY 09/11/19 09:00 09/19/19 08:43 20 MG Azithromycin 250 ml @ 250 mls/hr 1X STAT 09/10/19 17:12 09/10/19 18:11 DC 09/10/19 17:12 250 MLS/HR Bisacodyl (Dulcolax Supp) 10 mg PRN DAILY PRN 09/10/19 23:30 Cefdinir (Omnicef) 300 mg BID 09/14/19 10:15 09/19/19 08:42 300 MG Ceftriaxone Sodium (Rocephin) 1 gm 1X STAT 09/10/19 17:12 09/10/19 17:13 UNV Cholestyramine Resin (Questran Light) 4 gm DAILY 09/20/19 09:00 Dextrose (Dextrose 50%-Water Syringe) 12.5 gm PRN Q15MIN PRN 09/10/19 23:45 Diphenhydramine HCl (Benadryl) 25 mg 1X PRN PRN 09/15/19 11:45 09/16/19 11:44 DC Famotidine (Pepcid) 20 mg QHS 09/12/19 21:00 09/18/19 21:15 20 MG Fentanyl (Duragesic 50mcg/ Hr Patch) 1 patch Q3DAYS 09/13/19 09:00 09/19/19 08:42 1 PATCH Finasteride (Proscar) 5 mg DAILY 09/11/19 09:00 09/19/19 08:43 5 MG Gadoterate Meglumine (Dotarem) 5 ml 1X ONCE 09/14/19 13:00 09/14/19 13:01 DC 09/14/19 12:55 5 ML Hydrocortisone Sodium Succinate (Solu-CORTEF) 250 mg STK-MED ONCE 09/14/19 12:50 09/14/19 12:50 DC Hydromorphone HCl (Dilaudid) 2 mg PRN Q3HRS PRN 09/11/19 13:15 09/19/19 08:43 2 MG Info (PHARMACY MONITORING -- do not chart) 1 each PRN DAILY PRN 09/18/19 08:00 UNV Insulin Glargine (Lantus Syringe) 16 unit QHS 09/11/19 21:00 09/18/19 21:27 16 UNIT Insulin Human Lispro (HumaLOG) 0-9 UNITS TIDWMEALS 09/11/19 08:00 09/18/19 17:21 4 UNITS Iohexol (Omnipaque 240 Mg/ml) 50 ml STK-MED ONCE 09/14/19 12:50 09/14/19 12:51 DC Lactobacillus Rhamnosus (Culturelle) 1 cap BID 09/11/19 09:00 09/19/19 08:43 1 CAP Levothyroxine Sodium (Synthroid) 200 mcg DAILY06 09/11/19 06:00 09/19/19 05:13 200 MCG Lidocaine HCl (Buffered Lidocaine 1%) 3 ml 1X ONCE 09/14/19 12:30 09/14/19 12:31 DC 09/14/19 12:30 5 ML Lubiprostone (Amitiza) 24 mcg BIDWMEALS 09/11/19 08:00 09/19/19 08:43 24 MCG Magnesium Sulfate 50 ml @ 25 mls/hr PRN DAILY PRN 09/16/19 12:15 Meropenem 500 mg/ Sodium Chloride 50 ml @ 100 mls/hr 1X ONCE 09/10/19 17:45 09/10/19 18:14 DC 09/10/19 17:56 100 MLS/HR Metoprolol Tartrate (Lopressor) 25 mg BID 09/14/19 09:30 09/19/19 08:42 25 MG Morphine Sulfate (Ms Contin) 60 mg TID 09/11/19 09:00 09/19/19 08:43 60 MG Multivitamins (Thera M Plus) 1 tab DAILY 09/11/19 09:00 09/19/19 08:42 1 TAB Non-Formulary Medication (Methylnaltrexone [place] (Relistor)) 150 mg DAILY 09/11/19 09:00 09/12/19 15:54 DC Ondansetron HCl (Zofran Odt) 4 mg PRN Q8HRS PRN 09/10/19 23:45 Pantoprazole Sodium (Protonix) 40 mg DAILYAC 09/11/19 07:30 09/11/19 11:47 DC 09/11/19 08:28 40 MG Pharmacy Consult (C.diff Med Screen By Rx) 1 each 1X ONCE 09/10/19 22:30 09/10/19 22:31 DC 09/10/19 22:30 1 EACH Sennosides (Senna) 8.6 mg DAILY 09/11/19 09:00 09/19/19 08:43 8.6 MG Sodium Chloride 1,000 ml @ 400 mls/hr Q2H30M PRN 09/18/19 07:56 09/18/19 19:55 DC Sodium Chloride (Normal Saline Flush) 10 ml 1X PRN PRN 09/18/19 08:00 09/19/19 07:59 DC Tamsulosin HCl (Flomax) 0.4 mg DAILY 09/11/19 09:00 09/19/19 08:43 0.4 MG Vancomycin HCl (Vanco Per Pharmacy) 1 each PRN DAILY PRN 09/11/19 09:15 09/11/19 12:49 DC Vancomycin HCl (Vancomycin Oral Solution) 125 mg [id number] 09/11/19 13:00 09/19/19 08:43 125 MG Vancomycin HCl 1.5 gm/Sodium Chloride 500 ml @ 250 mls/hr 1X ONCE 09/10/19 17:45 09/10/19 19:44 DC 09/10/19 19:37 250 MLS/HR Lab Laboratory Tests Test 09/18/19 16:59 09/18/19 21:02 09/19/19 03:38 09/19/19 07:37 Glucose (Fingerstick) 153 mg/dL (70-99) 112 mg/dL (70-99) 71 mg/dL (70-99) Sodium Level 139 mmol/L (136-145) Potassium Level 4.1 mmol/L (3.5-5.1) Chloride Level 105 mmol/L (98-107) Carbon Dioxide Level 28 mmol/L (21-32) Anion Gap 6 (6-14) Blood Urea Nitrogen 28 mg/dL (8-26) Creatinine 2.7 mg/dL (0.7-1.3) Estimated GFR (Cockcroft-Gault) 23.0 Glucose Level 80 mg/dL (70-99) Calcium Level 8.2 mg/dL (8.5-10.1) Phosphorus Level 3.4 mg/dL (2.6-4.7) Magnesium Level 1.8 mg/dL (1.8-2.4) Albumin 1.9 g/dL (3.4-5.0) Test 09/19/19 12:17 Glucose (Fingerstick) 137 mg/dL (70-99) Results All relevant outside records, renal labs, imaging studies, telemetry/EKG's were reviewed. GUNNAR IGLESIAS MD Sep 19, 2019 14:41
--- NOTE | 2019-09-19 15:30 | NUR ---
Wound Care: Wound care consult for PU to the left heel. 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 Wound care recommendations to change every 3 days, recommendations left in room. Pt refused to turn to have back skin checked. Wound care will follow up on 09/26/19.
[2019-09-19 15:42] VITALS: BP 157/71
--- NOTE | 2019-09-19 15:44 | NUR ---
SW following pt. Spoke with Admission team and [facility] location is currently at capacity. They are working to place pt at [facility] in [facility]. Discussed with pt's and she reported clinic is too far for them but is okay if [facility] is able to transport. Spoke with Geena and she will need to discuss with nursing team regarding this. AUDREY had discussed pt will be moved back to [facility] location once a chair time opens. Chair time is pending.
[2019-09-19 19:46] VITALS: BP 159/61
[2019-09-19] MEDS: FAMOTIDINE 20 MG TABLET. PO SCH (20:15)
[2019-09-19] MEDS: INSULIN GLARGINE SYRINGE. SQ SCH (20:25)
--- NOTE | 2019-09-19 21:07 | PN ---
DATE: 09/19/2019 SUBJECTIVE: The patient is resting, slightly propped up in bed, in no apparent distress. He continued to complain of pain in his left shoulder. Otherwise, generally has an uneventful night. He was dialyzed yesterday. PHYSICAL EXAMINATION: GENERAL: When I examined him, he looked pale, but no jaundice, cyanosis, or thyromegaly. No jugular venous distension. No limb edema. VITAL SIGNS: Her heart rate was 72, blood pressure 143/61, temperature was 98.4, respiratory rate 20, and oxygen saturation was 94%. HEAD, EYES, EARS, NOSE AND THROAT: Normocephalic, atraumatic. NECK: Supple. HEART: Showed normal first and second heart sounds with no gallop or murmur. CHEST: Clear to auscultation. No crepitation or rhonchi. ABDOMEN: Distended, soft, nontender. No guarding or rigidity. No organomegaly. All hernial orifice intact. Bowel sounds normal. NEUROLOGIC: He was awake, alert, responding appropriately. All cranial nerves are intact. He moves his upper extremities to much good extent than lower extremities; however, he is mostly bedbound, chair bound. His intake was 300, output was 550. LABORATORY DATA: As of this morning, his hemoglobin 9.4, hematocrit 28.5. His chemistry showed a serum sodium 139, potassium 4.1, chloride 105, bicarbonate 28, anion gap of 6, BUN 28, creatinine 2.7, estimated glomerular filtration rate was 23 mL per minute, his glucose was 80, calcium was 8.2, phosphorus 3.4, magnesium was 1.8. Serum albumin was 1.9. ASSESSMENT: 1. G[place]lelawd kidney injury for which he has had temporary hemodialysis catheter placed and he is now on hemodialysis. His urine output is picking up. 2. Clostridium difficile colitis with recurrent bouts of diarrhea for which he is now on oral vancomycin, lactobacillus and cholestyramine; his diarrhea has largely subsided. 3. Other medical problems include: A. Benign prostatic hypertrophy with bladder outlet obstruction requiring indwelling Bledsoe catheter. B. Hypothyroidism. C. Hypogonadism. D. Neurofibromatosis. E. Type 2 diabetes mellitus. F. Chronic fatigue syndrome. G. Chronic pain syndrome due to infected left shoulder prosthesis with growth of group B Streptococcus treated with IV ceftriaxone for 6 weeks. He has been on suppressive therapy in the form of cefdinir. He was initially started on Keflex; however, he developed severe leukopenia that has since resolved. PLAN: To continue with oral vancomycin, lactobacillus and cholestyramine. Continue to monitor his kidney function and urine output. Continue with hemodialysis with Nephrology team. Continue to monitor his blood sugar and adjust insulin as needed. If the patient gets a chair at [facility] hemodialysis clinic at [place], can be discharged to [facility]. KERI DIGGS MD DR: PAIGE/chastity JOB#: [id number] / [id number]
[2019-09-19 23:47] VITALS: BP 157/62
[2019-09-20] MEDS: HYDROmorphone 2 MG/ML VIAL IVP PRN ×5 (01:04→19:41)
[2019-09-20 03:15] VITALS: BP 149/54
[2019-09-20] MEDS: LEVOTHYROXINE 100 MCG TABLET PO SCH (05:55)
[2019-09-20 06:09] LABS: CALCIUM 8.5 mg/dL (8.5-10.1); CREATININE 3.2 mg/dL (0.7-1.3); GFR 18.9; PHOSPHORUS 3.9 mg/dL (2.6-4.7); POTASSIUM 4.6 mmol/L (3.5-5.1)
[2019-09-20 07:39] VITALS: BP 170/68
[2019-09-20] MEDS: ASPIRIN ENTERIC COATED 81 MG TABLET.DR. PO SCH (08:00)
[2019-09-20] MEDS: INSULIN LISPRO 300 UNITS/3 ML VIAL. SQ SCH ×3 (08:00→18:20)
[2019-09-20] MEDS: LUBIPROSTONE 24 MCG CAPSULE PO SCH ×2 (08:00→18:17)
[2019-09-20] MEDS: ATORVASTATIN CALCIUM 20 MG TABLET PO SCH (09:00)
[2019-09-20] MEDS: CHOLESTYRAMINE/ASPARTAME 4 GM PACKET PO SCH (09:00)
[2019-09-20] MEDS: ASCORBIC ACID 500 MG TABLET PO SCH (09:00)
[2019-09-20] MEDS: METOPROLOL TART IMMED RELEASE 25 MG TABLET. PO SCH ×2 (09:00→21:54)
[2019-09-20] MEDS: FINASTERIDE 5 MG TABLET. PO SCH (09:00)
[2019-09-20] MEDS: TAMSULOSIN 0.4 MG CAP.ER.24H. PO SCH (09:00)
[2019-09-20] MEDS: LACTOBACILLUS RHAMNOSUS GG 1 CAPSULE. PO SCH ×2 (09:00→21:55)
[2019-09-20] MEDS: SENNOSIDES 8.6 MG TABLET PO SCH (09:00)
[2019-09-20] MEDS: VANCOMYCIN 125 MG/2.5 ML ORAL SOLUTION. PO SCH ×4 (09:00→21:55)
[2019-09-20] MEDS: MULTIVITAMIN with MINERAL TABLET. PO SCH (09:00)
--- NOTE | 2019-09-20 09:10 | NUR ---
Pt has a chair time at [facility] on , and Sat at 1400. Per Hugo, location is not able to take pt as they are at capacity and have a wait list. Discussed with Geena at first they reported they will not take pt back but after further discussion the stock plan administrator will be speaking with DON to see if they can take pt back. Pt and has good relationship with [facility] and pt has been there for relatively long time. AUDREY discussed pt is able to go to location once a chair opens. Awaiting on final response from Prasanna Buchanan. AUDREY also left a VM to pt's , to discuss alternative dc plan.
--- NOTE | 2019-09-20 09:17 | PDOC ---
Infectious Disease Note Subjective: Subjective feels better no diarrhea cont to have pain and swelling in both upper ext, Lt > rt no f/c/n/v Vital Signs: Vital Signs Vital Signs Date Time Temp Pulse Resp B/P (MAP) Pulse Ox O2 Delivery O2 Flow Rate FiO2 09/20/19 07:39 98.4 57 20 170/68 (102) 96 Room Air 98.4 Physical Exam: PHYSICAL EXAM GENERAL: Propped up in bed, alert, NAD HEENT: Oral cavity clear NECK: Supple LUNGS: Clear. HEART: S1, S2 ABDOMEN: Obese, + hernia, soft, nontender, + BS : Bledsoe in place EXTREMITIES: Mild pitting edema present. Left calcaneal has a small wound, heel protector NEUROLOGIC: Alert, oriented, able to move all the extremities, but very weak and debilitated. Temp RIJ/HDC (09/14) without signs of complications Medications: Inpatient Meds: Current Medications Medications (Trade) Dose Ordered Sig/Lauren Start Time Stop Time Status Last Admin Dose Admin Acetaminophen (Tylenol) 500 mg 1X PRN PRN 09/15/19 11:45 09/16/19 11:44 DC Albumin Human 200 ml @ 200 mls/hr 1X PRN PRN 09/18/19 08:00 09/18/19 13:59 DC Ascorbic Acid (Vitamin C) 500 mg DAILY 09/11/19 09:00 09/19/19 08:42 500 MG Aspirin (Ecotrin) 81 mg DAILYWBKFT 09/15/19 08:00 09/19/19 08:42 81 MG Atorvastatin Calcium (Lipitor) 20 mg DAILY 09/11/19 09:00 09/19/19 08:43 20 MG Azithromycin 250 ml @ 250 mls/hr 1X STAT 09/10/19 17:12 09/10/19 18:11 DC 09/10/19 17:12 250 MLS/HR Bisacodyl (Dulcolax Supp) 10 mg PRN DAILY PRN 09/10/19 23:30 Cefdinir (Omnicef) 300 mg BID 09/14/19 10:15 09/19/19 20:15 300 MG Ceftriaxone Sodium (Rocephin) 1 gm 1X STAT 09/10/19 17:12 09/10/19 17:13 UNV Cholestyramine Resin (Questran Light) 4 gm DAILY 09/20/19 09:00 Dextrose (Dextrose 50%-Water Syringe) 12.5 gm PRN Q15MIN PRN 09/10/19 23:45 Diphenhydramine HCl (Benadryl) 25 mg 1X PRN PRN 09/15/19 11:45 09/16/19 11:44 DC Famotidine (Pepcid) 20 mg QHS 09/12/19 21:00 09/19/19 20:15 20 MG Fentanyl (Duragesic 50mcg/ Hr Patch) 1 patch Q3DAYS 09/13/19 09:00 09/19/19 08:42 1 PATCH Finasteride (Proscar) 5 mg DAILY 09/11/19 09:00 09/19/19 08:43 5 MG Gadoterate Meglumine (Dotarem) 5 ml 1X ONCE 09/14/19 13:00 09/14/19 13:01 DC 09/14/19 12:55 5 ML Hydrocortisone Sodium Succinate (Solu-CORTEF) 250 mg STK-MED ONCE 09/14/19 12:50 09/14/19 12:50 DC Hydromorphone HCl (Dilaudid) 2 mg PRN Q3HRS PRN 09/11/19 13:15 09/20/19 05:56 2 MG Info (PHARMACY MONITORING -- do not chart) 1 each PRN DAILY PRN 09/18/19 08:00 UNV Insulin Glargine (Lantus Syringe) 16 unit QHS 09/11/19 21:00 09/19/19 20:25 16 UNIT Insulin Human Lispro (HumaLOG) 0-9 UNITS TIDWMEALS 09/11/19 08:00 09/19/19 18:01 7 UNITS Iohexol (Omnipaque 240 Mg/ml) 50 ml STK-MED ONCE 09/14/19 12:50 09/14/19 12:51 DC Lactobacillus Rhamnosus (Culturelle) 1 cap BID 09/11/19 09:00 09/19/19 20:15 1 CAP Levothyroxine Sodium (Synthroid) 200 mcg DAILY06 09/11/19 06:00 09/20/19 05:55 200 MCG Lidocaine HCl (Buffered Lidocaine 1%) 3 ml 1X ONCE 09/14/19 12:30 09/14/19 12:31 DC 09/14/19 12:30 5 ML Lubiprostone (Amitiza) 24 mcg BIDWMEALS 09/11/19 08:00 09/19/19 17:56 24 MCG Magnesium Sulfate 50 ml @ 25 mls/hr PRN DAILY PRN 09/16/19 12:15 Meropenem 500 mg/ Sodium Chloride 50 ml @ 100 mls/hr 1X ONCE 09/10/19 17:45 09/10/19 18:14 DC 09/10/19 17:56 100 MLS/HR Metoprolol Tartrate (Lopressor) 25 mg BID 09/14/19 09:30 09/19/19 20:15 25 MG Morphine Sulfate (Ms Contin) 60 mg TID 09/11/19 09:00 09/19/19 23:22 60 MG Multivitamins (Thera M Plus) 1 tab DAILY 09/11/19 09:00 09/19/19 08:42 1 TAB Non-Formulary Medication (Methylnaltrexone [place] (Relistor)) 150 mg DAILY 09/11/19 09:00 09/12/19 15:54 DC Ondansetron HCl (Zofran Odt) 4 mg PRN Q8HRS PRN 09/10/19 23:45 Pantoprazole Sodium (Protonix) 40 mg DAILYAC 09/11/19 07:30 09/11/19 11:47 DC 09/11/19 08:28 40 MG Pharmacy Consult (C.diff Med Screen By Rx) 1 each 1X ONCE 09/10/19 22:30 09/10/19 22:31 DC 09/10/19 22:30 1 EACH Sennosides (Senna) 8.6 mg DAILY 09/11/19 09:00 09/19/19 08:43 8.6 MG Sodium Chloride 1,000 ml @ 400 mls/hr Q2H30M PRN 09/18/19 07:56 09/18/19 19:55 DC Sodium Chloride (Normal Saline Flush) 10 ml 1X PRN PRN 09/18/19 08:00 09/19/19 07:59 DC Tamsulosin HCl (Flomax) 0.4 mg DAILY 09/11/19 09:00 09/19/19 08:43 0.4 MG Vancomycin HCl (Vanco Per Pharmacy) 1 each PRN DAILY PRN 09/11/19 09:15 09/11/19 12:49 DC Vancomycin HCl (Vancomycin Oral Solution) 125 mg [id number] 09/11/19 13:00 09/19/19 20:15 125 MG Vancomycin HCl 1.5 gm/Sodium Chloride 500 ml @ 250 mls/hr 1X ONCE 09/10/19 17:45 09/10/19 19:44 DC 09/10/19 19:37 250 MLS/HR Labs: Lab Laboratory Tests Test 09/19/19 12:17 09/19/19 16:51 09/19/19 20:14 09/20/19 04:02 Glucose (Fingerstick) 137 mg/dL (70-99) 281 mg/dL (70-99) 207 mg/dL (70-99) Sodium Level 137 mmol/L (136-145) Potassium Level 4.6 mmol/L (3.5-5.1) Chloride Level 103 mmol/L (98-107) Carbon Dioxide Level 27 mmol/L (21-32) Anion Gap 7 (6-14) Blood Urea Nitrogen 36 mg/dL (8-26) Creatinine 3.2 mg/dL (0.7-1.3) Estimated GFR (Cockcroft-Gault) 18.9 Glucose Level 180 mg/dL (70-99) Calcium Level 8.5 mg/dL (8.5-10.1) Phosphorus Level 3.9 mg/dL (2.6-4.7) Magnesium Level 1.9 mg/dL (1.8-2.4) Albumin 2.0 g/dL (3.4-5.0) Test 09/20/19 07:19 Glucose (Fingerstick) 157 mg/dL (70-99) Objective: Assessment: Pancolitis with diarrhea, C. 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 Acute on chronic renal failure, requiring HD Dislocated shoulder with infection with group B strep in the past. Coronary artery disease. Debility and self-care problem. Plan: Plan of Care Continue cholestyramine q daily Continue po vanc Continue po cefdinir for his shoulder, chronic suppression ( keflex caused neutropenia ) BLU PEACE MD Sep 20, 2019 09:17
[2019-09-20] MEDS: MORPHINE ER 30 MG TABLET.ER PO SCH ×3 (09:19→21:55)
[2019-09-20] MEDS ORDERED: DIALYSIS PATIENT. MC PRN (10:15)
--- NOTE | 2019-09-20 12:31 | PDOC ---
SUBJECTIVE ROS no complaints, seen on HD OBJECTIVE Vital Signs Vital Signs Date Time Temp Pulse Resp B/P (MAP) Pulse Ox O2 Delivery O2 Flow Rate FiO2 09/20/19 09:24 17 Room Air 09/20/19 07:39 98.4 57 170/68 (102) 96 98.4 I & 0 Intake and Output 09/20/19 07:00 Intake Total 1790 ml Output Total 400 ml Balance 1390 ml Intake Oral 1790 ml Output Urine Total 400 ml PHYSICAL EXAM Physical Exam GENERAL: NAD HEENT: Oral cavity clear NECK: Supple LUNGS: Clear. HEART: S1, S2 ABDOMEN: Obese, + hernia, soft, nontender, + BS : Bledsoe in place EXTREMITIES: Mild pitting edema present. Left calcaneal has a small wound, NEUROLOGIC: Alert, oriented, Temp RIJ/HDC (09/14) DIAGNOSIS/ASSESSMENT Assessment & Plan Acute on chronic renal failure, requiring HD ? vs ESRD No renal recovery, UOP marginal , Seen on HD , tolerating well Continue as ordered, Jamie Edgar Access- Temp HDC , will need Tunneled HDC and SW consult for OP chair time -Jamie RN Pancolitis with diarrhea, C. 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 Coronary artery disease Anemia- NEHA per protocol for goal Hgb 10-11 COMMENT/RELEVANT DATA Meds Current Medications Medications (Trade) Dose Ordered Sig/Lauren Start Time Stop Time Status Last Admin Dose Admin Acetaminophen (Tylenol) 500 mg 1X PRN PRN 09/15/19 11:45 09/16/19 11:44 DC Albumin Human 200 ml @ 200 mls/hr 1X PRN PRN 09/18/19 08:00 09/18/19 13:59 DC Ascorbic Acid (Vitamin C) 500 mg DAILY 09/11/19 09:00 09/19/19 08:42 500 MG Aspirin (Ecotrin) 81 mg DAILYWBKFT 09/15/19 08:00 09/19/19 08:42 81 MG Atorvastatin Calcium (Lipitor) 20 mg DAILY 09/11/19 09:00 09/19/19 08:43 20 MG Azithromycin 250 ml @ 250 mls/hr 1X STAT 09/10/19 17:12 09/10/19 18:11 DC 09/10/19 17:12 250 MLS/HR Bisacodyl (Dulcolax Supp) 10 mg PRN DAILY PRN 09/10/19 23:30 Cefdinir (Omnicef) 300 mg BID 09/14/19 10:15 09/19/19 20:15 300 MG Ceftriaxone Sodium (Rocephin) 1 gm 1X STAT 09/10/19 17:12 09/10/19 17:13 UNV Cholestyramine Resin (Questran Light) 4 gm DAILY 09/20/19 09:00 Dextrose (Dextrose 50%-Water Syringe) 12.5 gm PRN Q15MIN PRN 09/10/19 23:45 Diphenhydramine HCl (Benadryl) 25 mg 1X PRN PRN 09/15/19 11:45 09/16/19 11:44 DC Famotidine (Pepcid) 20 mg QHS 09/12/19 21:00 09/19/19 20:15 20 MG Fentanyl (Duragesic 50mcg/ Hr Patch) 1 patch Q3DAYS 09/13/19 09:00 09/19/19 08:42 1 PATCH Finasteride (Proscar) 5 mg DAILY 09/11/19 09:00 09/19/19 08:43 5 MG Gadoterate Meglumine (Dotarem) 5 ml 1X ONCE 09/14/19 13:00 09/14/19 13:01 DC 09/14/19 12:55 5 ML Hydrocortisone Sodium Succinate (Solu-CORTEF) 250 mg STK-MED ONCE 09/14/19 12:50 09/14/19 12:50 DC Hydromorphone HCl (Dilaudid) 2 mg PRN Q3HRS PRN 09/11/19 13:15 09/20/19 09:24 2 MG Info (PHARMACY MONITORING -- do not chart) 1 each PRN DAILY PRN 09/20/19 10:15 09/20/19 10:13 DC Insulin Glargine (Lantus Syringe) 16 unit QHS 09/11/19 21:00 09/19/19 20:25 16 UNIT Insulin Human Lispro (HumaLOG) 0-9 UNITS TIDWMEALS 09/11/19 08:00 09/19/19 18:01 7 UNITS Iohexol (Omnipaque 240 Mg/ml) 50 ml STK-MED ONCE 09/14/19 12:50 09/14/19 12:51 DC Lactobacillus Rhamnosus (Culturelle) 1 cap BID 09/11/19 09:00 09/19/19 20:15 1 CAP Levothyroxine Sodium (Synthroid) 200 mcg DAILY06 09/11/19 06:00 09/20/19 05:55 200 MCG Lidocaine HCl (Buffered Lidocaine 1%) 3 ml 1X ONCE 09/14/19 12:30 09/14/19 12:31 DC 09/14/19 12:30 5 ML Lubiprostone (Amitiza) 24 mcg BIDWMEALS 09/11/19 08:00 09/19/19 17:56 24 MCG Magnesium Sulfate 50 ml @ 25 mls/hr PRN DAILY PRN 09/16/19 12:15 Meropenem 500 mg/ Sodium Chloride 50 ml @ 100 mls/hr 1X ONCE 09/10/19 17:45 09/10/19 18:14 DC 09/10/19 17:56 100 MLS/HR Metoprolol Tartrate (Lopressor) 25 mg BID 09/14/19 09:30 09/19/19 20:15 25 MG Morphine Sulfate (Ms Contin) 60 mg TID 09/11/19 09:00 09/20/19 09:19 60 MG Multivitamins (Thera M Plus) 1 tab DAILY 09/11/19 09:00 09/19/19 08:42 1 TAB Non-Formulary Medication (Methylnaltrexone [place] (Relistor)) 150 mg DAILY 09/11/19 09:00 09/12/19 15:54 DC Ondansetron HCl (Zofran Odt) 4 mg PRN Q8HRS PRN 09/10/19 23:45 Pantoprazole Sodium (Protonix) 40 mg DAILYAC 09/11/19 07:30 09/11/19 11:47 DC 09/11/19 08:28 40 MG Pharmacy Consult (C.diff Med Screen By Rx) 1 each 1X ONCE 09/10/19 22:30 09/10/19 22:31 DC 09/10/19 22:30 1 EACH Sennosides (Senna) 8.6 mg DAILY 09/11/19 09:00 09/19/19 08:43 8.6 MG Sodium Chloride 1,000 ml @ 400 mls/hr Q2H30M PRN 09/18/19 07:56 09/18/19 19:55 DC Sodium Chloride (Normal Saline Flush) 10 ml 1X PRN PRN 09/18/19 08:00 09/19/19 07:59 DC Tamsulosin HCl (Flomax) 0.4 mg DAILY 09/11/19 09:00 09/19/19 08:43 0.4 MG Vancomycin HCl (Vanco Per Pharmacy) 1 each PRN DAILY PRN 09/11/19 09:15 09/11/19 12:49 DC Vancomycin HCl (Vancomycin Oral Solution) 125 mg [id number] 09/11/19 13:00 09/19/19 20:15 125 MG Vancomycin HCl 1.5 gm/Sodium Chloride 500 ml @ 250 mls/hr 1X ONCE 09/10/19 17:45 09/10/19 19:44 DC 09/10/19 19:37 250 MLS/HR Lab Laboratory Tests Test 09/19/19 16:51 09/19/19 20:14 09/20/19 04:02 09/20/19 07:19 Glucose (Fingerstick) 281 mg/dL (70-99) 207 mg/dL (70-99) 157 mg/dL (70-99) Sodium Level 137 mmol/L (136-145) Potassium Level 4.6 mmol/L (3.5-5.1) Chloride Level 103 mmol/L (98-107) Carbon Dioxide Level 27 mmol/L (21-32) Anion Gap 7 (6-14) Blood Urea Nitrogen 36 mg/dL (8-26) Creatinine 3.2 mg/dL (0.7-1.3) Estimated GFR (Cockcroft-Gault) 18.9 Glucose Level 180 mg/dL (70-99) Calcium Level 8.5 mg/dL (8.5-10.1) Phosphorus Level 3.9 mg/dL (2.6-4.7) Magnesium Level 1.9 mg/dL (1.8-2.4) Albumin 2.0 g/dL (3.4-5.0) Results All relevant outside records, renal labs, imaging studies, telemetry/EKG's were reviewed. GUNNAR IGLESIAS MD Sep 20, 2019 12:31
[2019-09-20] MEDS: CEFDINIR 300 MG CAPSULE PO SCH ×2 (14:22→21:54)
[2019-09-20 15:14] VITALS: BP 181/84
--- NOTE | 2019-09-20 16:10 | NUR ---
SW following pt. [place] requesting if pt is able to be placed at [facility] HD clinic. Discussed with Hugo, [facility] HD is at capacity, trying for a chair time at [facility]. Chair time pending. Left a message with RN to pt's .
[2019-09-20 19:27] VITALS: BP 163/53
[2019-09-20] MEDS: FAMOTIDINE 20 MG TABLET. PO SCH (21:55)
[2019-09-20] MEDS: INSULIN GLARGINE SYRINGE. SQ SCH (21:59)
--- NOTE | 2019-09-20 23:02 | PN ---
DATE: 09/20/2019 SUBJECTIVE: The patient is sitting slightly propped up in bed, just finished his scheduled hemodialysis today. Apparently, the plan is for him to have a permanent hemodialysis catheter, will be discharged to [place] to dialyze as an outpatient. PHYSICAL EXAMINATION: GENERAL: When I examined him today, he looked pale, but no jaundice, cyanosis or thyromegaly. No jugular venous distention. No limb edema. VITAL SIGNS: His heart rate was 57, blood pressure was 170/68, temperature was 98.4, respiratory rate was 20, and oxygen saturation was 96%. HEAD, EYES, EARS, NOSE AND THROAT: Normocephalic, atraumatic. NECK: Supple. HEART: Showed normal first and second heart sounds with no gallop or murmur. CHEST: Clear to auscultation. No crepitation or rhonchi. ABDOMEN: Distended, soft, and nontender. NEUROLOGIC: He was awake, alert, responding appropriately. All cranial nerves are intact. He moves his upper extremities to much good extent than lower extremities, mostly bedbound, chair bound. His intake over the last 24 hours was 650, output was 750. LABORATORY DATA: His most recent hemoglobin was 9.4, hematocrit 28.5. His chemistry as of this morning showed a serum sodium 137, potassium 4.6, chloride 103, bicarbonate 27, anion gap of 7, BUN 36, creatinine 3.2, estimated GFR was 18.9. Blood glucose was 180, calcium was 8.5, phosphorus was 3.9, and magnesium was 1.9. ASSESSMENT: 1. Acute on chronic kidney injury, for which he has had temporary hemodialysis catheter placed and he is now on hemodialysis. His urine output is picking up. He is scheduled to have a permanent hemodialysis catheter to be dialyzed as an outpatient. 2. ____ Clostridium difficile colitis with recurrent bouts of diarrhea for which he is now on oral vancomycin, Lactobacillus, and cholestyramine. His diarrhea has largely subsided. 3. Other medical problems include: A. Benign prostatic hypertrophy with bladder outlet obstruction requiring indwelling Bledsoe catheter. B. Hypothyroidism. C. Hypogonadism. D. Neurofibromatosis. E. Type 2 diabetes mellitus. F. Chronic fatigue syndrome. D. Chronic pain syndrome as he has an infected left shoulder prosthesis with growth of group B Streptococcus, treated with IV ceftriaxone for 6 weeks, has been on suppressive therapy in the form of cefdinir. He was initially started on Keflex; however, he developed severe leukopenia that has since resolved. PLAN: To continue with oral vancomycin, Lactobacillus, and cholestyramine. Continue to monitor his kidney function and urine output. Continue with hemodialysis as per Nephrology team. Continue to monitor his blood sugar and adjust insulin as needed. He will apparently has a permanent hemodialysis catheter placed tomorrow. Will be discharged to [place] to dialyze as an outpatient at [facility]. KERI DIGGS MD DR: PAIGE/chastity JOB#: [id number] / [id number]
[2019-09-20 23:33] VITALS: BP 157/58
[2019-09-21] VITALS (7 sets, daily range): BP systolic 107–212; BP diastolic 54–70
[2019-09-21] MEDS: HYDROmorphone 2 MG/ML VIAL IVP PRN ×6 (01:54→19:47)
[2019-09-21] MEDS: LEVOTHYROXINE 100 MCG TABLET PO SCH (05:52)
[2019-09-21 06:06] LABS: ALBUMIN 1.9 g/dL (3.4-5.0); CALCIUM 8.1 mg/dL (8.5-10.1); CREATININE 2.5 mg/dL (0.7-1.3); GFR 25.2; PHOSPHORUS 3.6 mg/dL (2.6-4.7); POTASSIUM 4.3 mmol/L (3.5-5.1)
[2019-09-21] MEDS: LUBIPROSTONE 24 MCG CAPSULE PO SCH ×2 (08:00→16:23)
[2019-09-21] MEDS: ASPIRIN ENTERIC COATED 81 MG TABLET.DR. PO SCH (08:00)
[2019-09-21] MEDS: FINASTERIDE 5 MG TABLET. PO SCH (09:00)
[2019-09-21] MEDS: SENNOSIDES 8.6 MG TABLET PO SCH (09:00)
[2019-09-21] MEDS: ATORVASTATIN CALCIUM 20 MG TABLET PO SCH (09:00)
[2019-09-21] MEDS: METOPROLOL TART IMMED RELEASE 25 MG TABLET. PO SCH ×2 (09:00→19:46)
[2019-09-21] MEDS: VANCOMYCIN 125 MG/2.5 ML ORAL SOLUTION. PO SCH ×4 (09:00→21:52)
[2019-09-21] MEDS: CEFDINIR 300 MG CAPSULE PO SCH ×2 (09:00→19:46)
[2019-09-21] MEDS: CHOLESTYRAMINE/ASPARTAME 4 GM PACKET PO SCH (09:00)
[2019-09-21] MEDS: TAMSULOSIN 0.4 MG CAP.ER.24H. PO SCH (09:00)
[2019-09-21] MEDS: LACTOBACILLUS RHAMNOSUS GG 1 CAPSULE. PO SCH ×2 (09:00→19:45)
[2019-09-21] MEDS: ASCORBIC ACID 500 MG TABLET PO SCH (09:00)
[2019-09-21] MEDS: MULTIVITAMIN with MINERAL TABLET. PO SCH (09:00)
[2019-09-21] MEDS: MORPHINE ER 30 MG TABLET.ER PO SCH ×3 (09:12→21:52)
[2019-09-21] MEDS: INSULIN LISPRO 300 UNITS/3 ML VIAL. SQ SCH ×3 (09:28→16:29)
--- NOTE | 2019-09-21 09:46 | PDOC ---
Infectious Disease Note Subjective: Subjective feels better no diarrhea cont to have pain and swelling in both upper ext, Lt > rt no f/c/n/v Vital Signs: Vital Signs Vital Signs Date Time Temp Pulse Resp B/P (MAP) Pulse Ox O2 Delivery O2 Flow Rate FiO2 09/21/19 09:12 17 Room Air 09/21/19 07:59 98.2 60 187/64 (105) 96 98.2 Physical Exam: PHYSICAL EXAM GENERAL: Propped up in bed, alert, NAD HEENT: Oral cavity clear NECK: Supple LUNGS: Clear. HEART: S1, S2 ABDOMEN: Obese, + hernia, soft, nontender, + BS : Bledsoe in place EXTREMITIES: Mild pitting edema present. Left calcaneal has a small wound, heel protector NEUROLOGIC: Alert, oriented, able to move all the extremities, but very weak and debilitated. Temp RIJ/HDC (09/14) without signs of complications Medications: Inpatient Meds: Current Medications Medications (Trade) Dose Ordered Sig/Lauren Start Time Stop Time Status Last Admin Dose Admin Acetaminophen (Tylenol) 500 mg 1X PRN PRN 09/15/19 11:45 09/16/19 11:44 DC Albumin Human 200 ml @ 200 mls/hr 1X PRN PRN 09/18/19 08:00 09/18/19 13:59 DC Ascorbic Acid (Vitamin C) 500 mg DAILY 09/11/19 09:00 09/19/19 08:42 500 MG Aspirin (Ecotrin) 81 mg DAILYWBKFT 09/15/19 08:00 09/19/19 08:42 81 MG Atorvastatin Calcium (Lipitor) 20 mg DAILY 09/11/19 09:00 09/19/19 08:43 20 MG Azithromycin 250 ml @ 250 mls/hr 1X STAT 09/10/19 17:12 09/10/19 18:11 DC 09/10/19 17:12 250 MLS/HR Bisacodyl (Dulcolax Supp) 10 mg PRN DAILY PRN 09/10/19 23:30 Cefdinir (Omnicef) 300 mg BID 09/14/19 10:15 09/20/19 21:54 300 MG Ceftriaxone Sodium (Rocephin) 1 gm 1X STAT 09/10/19 17:12 09/10/19 17:13 UNV Cholestyramine Resin (Questran Light) 4 gm DAILY 09/20/19 09:00 Dextrose (Dextrose 50%-Water Syringe) 12.5 gm PRN Q15MIN PRN 09/10/19 23:45 Diphenhydramine HCl (Benadryl) 25 mg 1X PRN PRN 09/15/19 11:45 09/16/19 11:44 DC Famotidine (Pepcid) 20 mg QHS 09/12/19 21:00 09/20/19 21:55 20 MG Fentanyl (Duragesic 50mcg/ Hr Patch) 1 patch Q3DAYS 09/13/19 09:00 09/19/19 08:42 1 PATCH Finasteride (Proscar) 5 mg DAILY 09/11/19 09:00 09/19/19 08:43 5 MG Gadoterate Meglumine (Dotarem) 5 ml 1X ONCE 09/14/19 13:00 09/14/19 13:01 DC 09/14/19 12:55 5 ML Hydrocortisone Sodium Succinate (Solu-CORTEF) 250 mg STK-MED ONCE 09/14/19 12:50 09/14/19 12:50 DC Hydromorphone HCl (Dilaudid) 2 mg PRN Q3HRS PRN 09/11/19 13:15 09/21/19 09:12 2 MG Info (PHARMACY MONITORING -- do not chart) 1 each PRN DAILY PRN 09/20/19 10:15 09/20/19 10:13 DC Insulin Glargine (Lantus Syringe) 16 unit QHS 09/11/19 21:00 09/20/19 21:59 16 UNIT Insulin Human Lispro (HumaLOG) 0-9 UNITS TIDWMEALS 09/11/19 08:00 09/21/19 09:28 3 UNITS Iohexol (Omnipaque 240 Mg/ml) 50 ml STK-MED ONCE 09/14/19 12:50 09/14/19 12:51 DC Lactobacillus Rhamnosus (Culturelle) 1 cap BID 09/11/19 09:00 09/20/19 21:55 1 CAP Levothyroxine Sodium (Synthroid) 200 mcg DAILY06 09/11/19 06:00 09/21/19 05:52 200 MCG Lidocaine HCl (Buffered Lidocaine 1%) 3 ml 1X ONCE 09/14/19 12:30 09/14/19 12:31 DC 09/14/19 12:30 5 ML Lubiprostone (Amitiza) 24 mcg BIDWMEALS 09/11/19 08:00 09/20/19 18:17 24 MCG Magnesium Sulfate 50 ml @ 25 mls/hr PRN DAILY PRN 09/16/19 12:15 Meropenem 500 mg/ Sodium Chloride 50 ml @ 100 mls/hr 1X ONCE 09/10/19 17:45 09/10/19 18:14 DC 09/10/19 17:56 100 MLS/HR Metoprolol Tartrate (Lopressor) 25 mg BID 09/14/19 09:30 09/20/19 21:54 25 MG Morphine Sulfate (Ms Contin) 60 mg TID 09/11/19 09:00 09/21/19 09:12 60 MG Multivitamins (Thera M Plus) 1 tab DAILY 09/11/19 09:00 09/19/19 08:42 1 TAB Non-Formulary Medication (Methylnaltrexone [place] (Relistor)) 150 mg DAILY 09/11/19 09:00 09/12/19 15:54 DC Ondansetron HCl (Zofran Odt) 4 mg PRN Q8HRS PRN 09/10/19 23:45 Pantoprazole Sodium (Protonix) 40 mg DAILYAC 09/11/19 07:30 09/11/19 11:47 DC 09/11/19 08:28 40 MG Pharmacy Consult (C.diff Med Screen By Rx) 1 each 1X ONCE 09/10/19 22:30 09/10/19 22:31 DC 09/10/19 22:30 1 EACH Sennosides (Senna) 8.6 mg DAILY 09/11/19 09:00 09/19/19 08:43 8.6 MG Sodium Chloride 1,000 ml @ 400 mls/hr Q2H30M PRN 09/18/19 07:56 09/18/19 19:55 DC Sodium Chloride (Normal Saline Flush) 10 ml 1X PRN PRN 09/18/19 08:00 09/19/19 07:59 DC Tamsulosin HCl (Flomax) 0.4 mg DAILY 09/11/19 09:00 09/19/19 08:43 0.4 MG Vancomycin HCl (Vanco Per Pharmacy) 1 each PRN DAILY PRN 09/11/19 09:15 09/11/19 12:49 DC Vancomycin HCl (Vancomycin Oral Solution) 125 mg [id number] 09/11/19 13:00 09/20/19 21:55 125 MG Vancomycin HCl 1.5 gm/Sodium Chloride 500 ml @ 250 mls/hr 1X ONCE 09/10/19 17:45 09/10/19 19:44 DC 09/10/19 19:37 250 MLS/HR Labs: Lab Laboratory Tests Test 09/20/19 16:39 09/20/19 21:46 09/21/19 05:30 09/21/19 07:38 Glucose (Fingerstick) 276 mg/dL (70-99) 347 mg/dL (70-99) 234 mg/dL (70-99) Sodium Level 137 mmol/L (136-145) Potassium Level 4.3 mmol/L (3.5-5.1) Chloride Level 102 mmol/L (98-107) Carbon Dioxide Level 29 mmol/L (21-32) Anion Gap 6 (6-14) Blood Urea Nitrogen 25 mg/dL (8-26) Creatinine 2.5 mg/dL (0.7-1.3) Estimated GFR (Cockcroft-Gault) 25.2 Glucose Level 272 mg/dL (70-99) Calcium Level 8.1 mg/dL (8.5-10.1) Phosphorus Level 3.6 mg/dL (2.6-4.7) Magnesium Level 1.6 mg/dL (1.8-2.4) Albumin 1.9 g/dL (3.4-5.0) Objective: Assessment: Pancolitis with diarrhea, C. difficile related Recurrent Clostridium difficile.09/10 Low grade fever.resolved Acute on chronic renal failure, requiring HD Dislocated shoulder with infection with group B strep in the past. Coronary artery disease. Debility and self-care problem. Plan: Plan of Care Continue cholestyramine q daily for one month Continue po vanc for 14 days followed by po bid for one month Continue po cefdinir for his shoulder, chronic suppression ( keflex caused neutropenia ) d/w his will sign out call with any questions BLU PEACE MD Sep 21, 2019 09:46
--- NOTE | 2019-09-21 11:14 | PN ---
DATE: 09/21/2019 SUBJECTIVE: The patient is resting, slightly propped up, sleeping comfortably, in no apparent distress. The nursing staff stated he had generally uneventful night. He is scheduled for a tunneled hemodialysis catheter and awaiting an outpatient chair time, so that we can discharge him back to [facility] to continue dialysis as an outpatient. PHYSICAL EXAMINATION: GENERAL: When I examined him this morning, he looked pale, but no jaundice, cyanosis or thyromegaly. No jugular venous distention. No limb edema. VITAL SIGNS: His heart rate was 60, blood pressure was 187/64, temperature was 98.2, respiratory rate 20, and oxygen saturation was 96%. HEAD, EYES, EARS, NOSE AND THROAT: Normocephalic, atraumatic. NECK: Supple. HEART: Normal first and second heart sounds with no gallop or murmur. CHEST: Clear to auscultation. No crepitation or rhonchi. ABDOMEN: Distended, soft, nontender. Supraumbilical hernia is reducible. No guarding or rigidity. No organomegaly. All hernial orifice intact. Bowel sounds normal. NEUROLOGIC: He was sleepy, but arousable. All cranial nerves intact. He moves upper extremities to much great extent than lower extremities. He is mostly bedbound, chair bound. He has infected left shoulder prosthesis, has severe pain for which he is on multiple pain medications. His intake was 1790, output was 400. LABORATORY DATA: As of this morning, his serum sodium was 137, potassium 4.3, chloride 102, bicarbonate 29, anion gap of 6, BUN 25, creatinine 2.5, estimated GFR was 25 mL per minute, his glucose was 272, calcium was 8.1, phosphorus 3.6 and magnesium was 1.6. His albumin was 1.9. His hemoglobin and hematocrit are 9.4 and 28.5. ASSESSMENT: 1. Ujpzi-rg-fwsiihy kidney injury for which he is scheduled to have a tunneled hemodialysis catheter. Once he has an outpatient chair time, he can be discharged to [facility]. 2. Recurrent Clostridium difficile colitis, which he is on oral vancomycin, lactobacillus and cholestyramine. His diarrhea has largely subsided. 3. The patient has multiple other medical problems including: A. Benign prostatic hypertrophy with bladder outlet obstruction requiring indwelling Bledsoe catheter. B. Hypothyroidism. C. Hypogonadism. D. Neurofibromatosis. E. Type 2 diabetes mellitus. F. Chronic fatigue syndrome. D. Chronic pain syndrome. He had an infected left shoulder prosthesis with growth of group B Streptococcus, treated with IV ceftriaxone for 6 weeks. He has been on suppressive therapy in the form of cefdinir since then. He was initially started on Keflex; however, he developed severe leukopenia that has since resolved. PLAN: To continue with oral vancomycin, lactobacillus, and cholestyramine. Continue to monitor his kidney function and urine output. Continue with hemodialysis as per Nephrology team. The patient is scheduled for a tunneled hemodialysis catheter and if we got an outpatient a chair time at [facility] in [place], the patient can be discharged to [facility]. KERI DIGGS MD DR: PAIGE/chastity JOB#: [id number] / [id number]
--- NOTE | 2019-09-21 13:05 | NUR ---
SW following pt. Spoke with Dianne at [facility] and they have accepted pt with chair time on , and SA at 1015. Left a VM to [facility] in admission for admission letter/schedule. Spoke with Geena and they are not able to take pt until Tuesday. RN notified.
[2019-09-21] MEDS ORDERED: MIDAZOLAM HCL/PF 2 MG/2 ML VIAL. ONE (15:15)
[2019-09-21] MEDS ORDERED: fentaNYL PF VIAL 100 MCG/2 ML VIAL ONE (15:15)
[2019-09-21] MEDS ORDERED: LIDOCAINE 1%/EPI 1:100,000 20 ML VIAL. ONE (15:18)
[2019-09-21] MEDS ORDERED: LIDOCAINE 1%/EPI 1:100,000 20 ML VIAL. SQ ONE (15:30)
[2019-09-21] MEDS ORDERED: MIDAZOLAM HCL/PF 2 MG/2 ML VIAL. IV ONE (15:30)
[2019-09-21] MEDS ORDERED: fentaNYL PF VIAL 100 MCG/2 ML VIAL IV ONE (15:30)
--- NOTE | 2019-09-21 16:00 | NUR ---
Pt has received his permanent tunneled dialysis catheter. Head of bed elevated to 30 degrees. Dressing dry and intact. No bleeding noted.
--- NOTE | 2019-09-21 16:10 | PDOC ---
SUBJECTIVE ROS no complaints, s/p Tunneled HDC placement today OBJECTIVE Vital Signs Vital Signs Date Time Temp Pulse Resp B/P (MAP) Pulse Ox O2 Delivery O2 Flow Rate FiO2 09/21/19 15:50 66 16 98 Nasal Cannula 2.0 09/21/19 11:08 98.4 107/62 (77) 98.4 I & 0 Intake and Output 09/21/19 07:00 Intake Total 1060 ml Output Total 800 ml Balance 260 ml Intake Oral 1060 ml Output Urine Total 800 ml PHYSICAL EXAM Physical Exam GENERAL: NAD HEENT: Oral cavity clear NECK: Supple LUNGS: Clear. HEART: S1, S2 ABDOMEN: Obese, + hernia, soft, nontender, + BS : Bledsoe in place EXTREMITIES: Mild pitting edema present. Left calcaneal has a small wound, NEUROLOGIC: Alert, oriented, Tunneled HDC 09/21/19 DIAGNOSIS/ASSESSMENT Assessment & Plan New onset ESRD Has required CRRt for RENATA earlier this year and came off HD with CKD RENATA this time- No renal recovery, UOP marginal ,currently on TTS schedule, No indication today Access- Tunneled HDC placed today OP chair time TTS at [facility] . DC on Tuesday to [place] Pancolitis with diarrhea, C. 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 Coronary artery disease Anemia- NEHA per protocol for goal Hgb 10-11 DC planning per primary COMMENT/RELEVANT DATA Meds Current Medications Medications (Trade) Dose Ordered Sig/Lauren Start Time Stop Time Status Last Admin Dose Admin Acetaminophen (Tylenol) 500 mg 1X PRN PRN 09/15/19 11:45 09/16/19 11:44 DC Albumin Human 200 ml @ 200 mls/hr 1X PRN PRN 09/18/19 08:00 09/18/19 13:59 DC Ascorbic Acid (Vitamin C) 500 mg DAILY 09/11/19 09:00 09/19/19 08:42 500 MG Aspirin (Ecotrin) 81 mg DAILYWBKFT 09/15/19 08:00 09/19/19 08:42 81 MG Atorvastatin Calcium (Lipitor) 20 mg DAILY 09/11/19 09:00 09/19/19 08:43 20 MG Azithromycin 250 ml @ 250 mls/hr 1X STAT 09/10/19 17:12 09/10/19 18:11 DC 09/10/19 17:12 250 MLS/HR Bisacodyl (Dulcolax Supp) 10 mg PRN DAILY PRN 09/10/19 23:30 Cefazolin Sodium 50 ml @ 100 mls/hr 1X ONCE 09/21/19 15:30 09/21/19 15:59 DC 09/21/19 15:30 100 MLS/HR Cefdinir (Omnicef) 300 mg BID 09/14/19 10:15 09/20/19 21:54 300 MG Ceftriaxone Sodium (Rocephin) 1 gm 1X STAT 09/10/19 17:12 09/10/19 17:13 UNV Cholestyramine Resin (Questran Light) 4 gm DAILY 09/20/19 09:00 Dextrose (Dextrose 50%-Water Syringe) 12.5 gm PRN Q15MIN PRN 09/10/19 23:45 Diphenhydramine HCl (Benadryl) 25 mg 1X PRN PRN 09/15/19 11:45 09/16/19 11:44 DC Famotidine (Pepcid) 20 mg QHS 09/12/19 21:00 09/20/19 21:55 20 MG Fentanyl (Duragesic 50mcg/ Hr Patch) 1 patch Q3DAYS 09/13/19 09:00 09/19/19 08:42 1 PATCH Fentanyl Citrate (Fentanyl 2ml Vial) 100 mcg 1X ONCE 09/21/19 15:30 09/21/19 15:34 DC 09/21/19 15:30 50 MCG Finasteride (Proscar) 5 mg DAILY 09/11/19 09:00 09/19/19 08:43 5 MG Gadoterate Meglumine (Dotarem) 5 ml 1X ONCE 09/14/19 13:00 09/14/19 13:01 DC 09/14/19 12:55 5 ML Hydrocortisone Sodium Succinate (Solu-CORTEF) 250 mg STK-MED ONCE 09/14/19 12:50 09/14/19 12:50 DC Hydromorphone HCl (Dilaudid) 2 mg PRN Q3HRS PRN 09/11/19 13:15 09/21/19 12:04 2 MG Info (PHARMACY MONITORING -- do not chart) 1 each PRN DAILY PRN 09/20/19 10:15 09/20/19 10:13 DC Insulin Glargine (Lantus Syringe) 16 unit QHS 09/11/19 21:00 09/20/19 21:59 16 UNIT Insulin Human Lispro (HumaLOG) 0-9 UNITS TIDWMEALS 09/11/19 08:00 09/21/19 09:28 3 UNITS Iohexol (Omnipaque 240 Mg/ml) 50 ml STK-MED ONCE 09/14/19 12:50 09/14/19 12:51 DC Lactobacillus Rhamnosus (Culturelle) 1 cap BID 09/11/19 09:00 09/20/19 21:55 1 CAP Levothyroxine Sodium (Synthroid) 200 mcg DAILY06 09/11/19 06:00 09/21/19 05:52 200 MCG Lidocaine HCl (Buffered Lidocaine 1%) 3 ml 1X ONCE 09/14/19 12:30 09/14/19 12:31 DC 09/14/19 12:30 5 ML Lidocaine/ Epinephrine (LIDOCAINE 1%-EPI 1:100,000 Multi-Dose) 20 ml 1X ONCE 09/21/19 15:30 09/21/19 15:34 DC 09/21/19 15:30 9 ML Lubiprostone (Amitiza) 24 mcg BIDWMEALS 09/11/19 08:00 09/20/19 18:17 24 MCG Magnesium Sulfate 50 ml @ 25 mls/hr PRN DAILY PRN 09/16/19 12:15 Meropenem 500 mg/ Sodium Chloride 50 ml @ 100 mls/hr 1X ONCE 09/10/19 17:45 09/10/19 18:14 DC 09/10/19 17:56 100 MLS/HR Metoprolol Tartrate (Lopressor) 25 mg BID 09/14/19 09:30 09/20/19 21:54 25 MG Midazolam HCl (Versed) 2 mg 1X ONCE 09/21/19 15:30 09/21/19 15:34 DC 09/21/19 15:30 1 MG Morphine Sulfate (Ms Contin) 60 mg TID 09/11/19 09:00 09/21/19 09:12 60 MG Multivitamins (Thera M Plus) 1 tab DAILY 09/11/19 09:00 09/19/19 08:42 1 TAB Non-Formulary Medication (Methylnaltrexone [place] Pool (Relistor)) 150 mg DAILY 09/11/19 09:00 09/12/19 15:54 DC Ondansetron HCl (Zofran Odt) 4 mg PRN Q8HRS PRN 09/10/19 23:45 Pantoprazole Sodium (Protonix) 40 mg DAILYAC 09/11/19 07:30 09/11/19 11:47 DC 09/11/19 08:28 40 MG Pharmacy Consult (C.diff Med Screen By Rx) 1 each 1X ONCE 09/10/19 22:30 09/10/19 22:31 DC 09/10/19 22:30 1 EACH Sennosides (Senna) 8.6 mg DAILY 09/11/19 09:00 09/19/19 08:43 8.6 MG Sodium Chloride 1,000 ml @ 400 mls/hr Q2H30M PRN 09/18/19 07:56 09/18/19 19:55 DC Sodium Chloride (Normal Saline Flush) 10 ml 1X PRN PRN 09/18/19 08:00 09/19/19 07:59 DC Tamsulosin HCl (Flomax) 0.4 mg DAILY 09/11/19 09:00 09/19/19 08:43 0.4 MG Vancomycin HCl (Vanco Per Pharmacy) 1 each PRN DAILY PRN 09/11/19 09:15 09/11/19 12:49 DC Vancomycin HCl (Vancomycin Oral Solution) 125 mg [id number] 09/11/19 13:00 09/21/19 12:03 125 MG Vancomycin HCl 1.5 gm/Sodium Chloride 500 ml @ 250 mls/hr 1X ONCE 09/10/19 17:45 09/10/19 19:44 DC 09/10/19 19:37 250 MLS/HR Lab Laboratory Tests Test 09/20/19 16:39 09/20/19 21:46 09/21/19 05:30 09/21/19 07:38 Glucose (Fingerstick) 276 mg/dL (70-99) 347 mg/dL (70-99) 234 mg/dL (70-99) Sodium Level 137 mmol/L (136-145) Potassium Level 4.3 mmol/L (3.5-5.1) Chloride Level 102 mmol/L (98-107) Carbon Dioxide Level 29 mmol/L (21-32) Anion Gap 6 (6-14) Blood Urea Nitrogen 25 mg/dL (8-26) Creatinine 2.5 mg/dL (0.7-1.3) Estimated GFR (Cockcroft-Gault) 25.2 Glucose Level 272 mg/dL (70-99) Calcium Level 8.1 mg/dL (8.5-10.1) Phosphorus Level 3.6 mg/dL (2.6-4.7) Magnesium Level 1.6 mg/dL (1.8-2.4) Albumin 1.9 g/dL (3.4-5.0) Test 09/21/19 11:45 Glucose (Fingerstick) 193 mg/dL (70-99) Results All relevant outside records, renal labs, imaging studies, telemetry/EKG's were reviewed. GUNNAR IGLESIAS MD Sep 21, 2019 16:10
--- NOTE | 2019-09-21 17:06 | RAD ---
Conversion of a right internal jugular tunnel temporary dialysis catheter to a tunneled catheter 09/21/2019 INDICATION: Longer term dialysis access Discussion: The procedure was explained in its entirety to the patient or the patients designated industrial relations representative by a member of the treatment team, including a discussion of the risks, benefits and commonly accepted alternatives to the procedure, as well as the expected consequences of no therapy whatsoever. Discussion of the risks included, but was not limited to, those that are most frequent and those that are rare but possibly severe or life-threatening, as well as the possibility of unforeseen complications. All elements of maximal sterile barrier technique including the use of a cap, mask, sterile gown, sterile gloves, large sterile sheet, appropriate hand hygiene, and 2% chlorhexidine for cutaneous antisepsis (or acceptable alternative antiseptic per current guidelines) were followed for this procedure. The pre-existing catheter was evaluated found to have its tip in the right atrium. A wire was advanced through the pre-existing catheter into the IVC. The pre-existing catheter was removed over this wire. A peel-away sheath was placed. A 23 cm tip to cuff dialysis catheter was advanced to the peel-away sheath and positioned such the catheter tip was in the proximal most right atrium with the patient supine. The new catheter was found to flush and aspirate normally. The catheter was secured in place. Sterile dressings were applied. No immediate complications were identified. Total fluoroscopy time: 0.4 min Dose area product: 2 Gycm2 The procedures performed under conscious sedation including continuous cardiopulmonary monitoring via dedicated sedation nurse. [id number] sedation time: 25 minutes Impression: Conversion of right internal jugular temporary dialysis catheter to a tunneled dialysis catheter as described
[2019-09-21] MEDS: FAMOTIDINE 20 MG TABLET. PO SCH (19:46)
[2019-09-21] MEDS: INSULIN GLARGINE SYRINGE. SQ SCH (21:00)
[2019-09-22] MEDS: HYDROmorphone 2 MG/ML VIAL IVP PRN ×5 (00:20→21:42)
[2019-09-22 03:30] VITALS: BP 167/52
[2019-09-22] MEDS: LEVOTHYROXINE 100 MCG TABLET PO SCH (06:03)
[2019-09-22 06:41] LABS: CALCIUM 8.6 mg/dL (8.5-10.1); CREATININE 2.7 mg/dL (0.7-1.3); POTASSIUM 4.1 mmol/L (3.5-5.1)
[2019-09-22 07:00] VITALS: BP 176/45
[2019-09-22] MEDS: INSULIN LISPRO 300 UNITS/3 ML VIAL. SQ SCH ×3 (08:00→17:56)
[2019-09-22] MEDS: MORPHINE ER 30 MG TABLET.ER PO SCH ×3 (08:55→21:43)
[2019-09-22] MEDS: METOPROLOL TART IMMED RELEASE 25 MG TABLET. PO SCH ×2 (08:55→21:43)
[2019-09-22] MEDS: ASPIRIN ENTERIC COATED 81 MG TABLET.DR. PO SCH (08:55)
[2019-09-22] MEDS: LACTOBACILLUS RHAMNOSUS GG 1 CAPSULE. PO SCH ×2 (08:55→21:43)
[2019-09-22] MEDS: fentaNYL 50MCG/HR PATCH 1 PATCH PATCH.TD72 TD SCH (08:56)
[2019-09-22] MEDS: VANCOMYCIN 125 MG/2.5 ML ORAL SOLUTION. PO SCH ×4 (08:56→21:44)
[2019-09-22] MEDS ORDERED: ALBUMIN HUMAN 25% 200 ML IV PRN (09:00)
[2019-09-22] MEDS ORDERED: 0.9 % SODIUM CHLORIDE 10 ML DISP.SYRIN. IV PRN ×2 (09:00)
[2019-09-22] MEDS ORDERED: IV NORMAL SALINE 1000ML BAG 1,000 ML IV PRN (09:00)
--- NOTE | 2019-09-22 09:00 | PN ---
DATE: 09/22/2019 SUBJECTIVE: The patient is resting, slightly propped up in bed, no apparent distress, awake, alert. On questioning him, he denied any complaint. The nursing staff did not voice any concerns that he had an eventful night. He has had his permanent tunneled hemodialysis catheter placed yesterday successfully. He has actually a chair time at [facility] on Tuesday, , Tuesday. Unfortunately, he could not be accepted until Tuesday to go back to [facility]. On questioning him this morning, he denied any complaint. The nursing staff did not voice any concerns that he had an eventful night. PHYSICAL EXAMINATION: GENERAL: When I examined him, he looked pale. No jaundice, cyanosis or thyromegaly. No jugular venous distention. No lower limb edema. VITAL SIGNS: His heart rate was 59, blood pressure was 167/52, temperature was 98.5, respiratory rate was 20, and oxygen saturation was 99%. HEAD, EYES, EARS, NOSE AND THROAT: Showed normocephalic, atraumatic. NECK: Supple. HEART: Showed normal first and second heart sounds. No gallop or murmur. CHEST: Clear to auscultation. No crepitation or rhonchi. ABDOMEN: Distended, soft, nontender. NEUROLOGIC: He was awake, alert, responding appropriately. All cranial nerves intact. He moves extremities without difficulty. Although he is mostly bedbound, chair bound, he is able to ambulate with a walker with assistance. His intake was 1060, output was 800. LABORATORY DATA: As of this morning showed a serum sodium of 138, potassium 4.1, chloride 104, bicarbonate 29, anion gap of 5, BUN 27, creatinine 2.7, estimated GFR was 23 mL per minute, his glucose 121, calcium was 8.6, phosphorus was 4. ASSESSMENT: 1. Acute on chronic kidney injury, for which he is scheduled to have a tunneled hemodialysis catheter and that was done yesterday successfully. He had an outpatient chair time on Tuesday, , Tuesday at [facility]. He will be discharged back to [facility] on Tuesday on 09/24/2019. 2. Recurrent Clostridium difficile colitis. He is on oral vancomycin and Lactobacillus and cholestyramine. His diarrhea has largely subsided. 3. The patient has multiple other medical problems including: A. Benign prostatic hypertrophy with bladder outlet obstruction requiring indwelling Bledsoe catheter. B. Hypothyroidism. C. Hypogonadism. D. Neurofibromatosis. E. Type 2 diabetes mellitus. F. Chronic fatigue syndrome. G. Chronic pain syndrome. H. He had an infected left shoulder prosthesis with growth of group B Streptococcus, treated with IV ceftriaxone for 6 weeks, has been on suppressive therapy in the form of cefdinir since then. He was initially started on Keflex; however, he developed severe leukopenia and this that has since resolved. PLAN: 1. Continue with oral vancomycin and lactobacillus and cholestyramine. 2, Continue to monitor his kidney function and urine output. 3. Continue with hemodialysis as per Nephrology team with pain management. 4. Continue with physical and occupational therapy. KERI DIGGS MD DR: PAIGE/chastity JOB#: [id number] / [id number]
[2019-09-22] MEDS ORDERED: DIALYSIS PATIENT. MC PRN ×2 (11:00)
--- NOTE | 2019-09-22 13:24 | NUR ---
Received report from Annika Grande in dialysis, took off 2L BP at 158/77. Dozed most of the session.
[2019-09-22] MEDS: LUBIPROSTONE 24 MCG CAPSULE PO SCH ×2 (13:51→17:48)
[2019-09-22] MEDS: CEFDINIR 300 MG CAPSULE PO SCH ×2 (13:51→21:44)
[2019-09-22] MEDS: ASCORBIC ACID 500 MG TABLET PO SCH (13:52)
[2019-09-22] MEDS: SENNOSIDES 8.6 MG TABLET PO SCH (13:52)
[2019-09-22] MEDS: TAMSULOSIN 0.4 MG CAP.ER.24H. PO SCH (13:52)
[2019-09-22] MEDS: ATORVASTATIN CALCIUM 20 MG TABLET PO SCH (13:52)
[2019-09-22] MEDS: MULTIVITAMIN with MINERAL TABLET. PO SCH (13:52)
[2019-09-22] MEDS: FINASTERIDE 5 MG TABLET. PO SCH (13:52)
[2019-09-22] MEDS: CHOLESTYRAMINE/ASPARTAME 4 GM PACKET PO SCH (13:52)
--- NOTE | 2019-09-22 14:06 | PDOC ---
SUBJECTIVE ROS no complaints, s/p Tunneled HDC placement 09/21, seen on hd , OBJECTIVE Vital Signs Vital Signs Date Time Temp Pulse Resp B/P (MAP) Pulse Ox O2 Delivery O2 Flow Rate FiO2 09/22/19 14:01 97 Room Air 09/22/19 08:55 56 176/45 09/22/19 07:00 98.2 18 98.2 09/21/19 15:50 2.0 I & 0 Intake and Output 09/22/19 07:00 Intake Total 300 ml Output Total 1230 ml Balance -930 ml Intake Oral 300 ml Output Urine Total 1230 ml PHYSICAL EXAM Physical Exam GENERAL: NAD HEENT: Oral cavity clear NECK: Supple LUNGS: Clear. HEART: S1, S2 ABDOMEN: Obese, + hernia, soft, nontender, + BS : Bledsoe in place EXTREMITIES: Mild pitting edema present. Left calcaneal has a small wound, NEUROLOGIC: Alert, oriented, Tunneled HDC 09/21/19 DIAGNOSIS/ASSESSMENT Assessment & Plan New onset ESRD - TTS Has required CRRt for RENATA earlier this year and came off HD with CKD seen on HD, tolerating well, continue as ordered , Jamie Edgar Access- Tunneled HDC 09/21 OP chair time TTS at [facility] Pancolitis with diarrhea, C. 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 Coronary artery disease Anemia- NEHA per protocol for goal Hgb 10-11 DC planning per primary COMMENT/RELEVANT DATA Meds Current Medications Medications (Trade) Dose Ordered Sig/Lauren Start Time Stop Time Status Last Admin Dose Admin Acetaminophen (Tylenol) 500 mg 1X PRN PRN 09/15/19 11:45 09/16/19 11:44 DC Albumin Human 200 ml @ 200 mls/hr 1X PRN PRN 09/22/19 09:00 09/22/19 14:59 Ascorbic Acid (Vitamin C) 500 mg DAILY 09/11/19 09:00 09/22/19 13:52 500 MG Aspirin (Ecotrin) 81 mg DAILYWBKFT 09/15/19 08:00 09/22/19 08:55 81 MG Atorvastatin Calcium (Lipitor) 20 mg DAILY 09/11/19 09:00 09/22/19 13:52 20 MG Azithromycin 250 ml @ 250 mls/hr 1X STAT 09/10/19 17:12 09/10/19 18:11 DC 09/10/19 17:12 250 MLS/HR Bisacodyl (Dulcolax Supp) 10 mg PRN DAILY PRN 09/10/19 23:30 Cefazolin Sodium 50 ml @ 100 mls/hr 1X ONCE 09/21/19 15:30 09/21/19 15:59 DC 09/21/19 15:30 100 MLS/HR Cefdinir (Omnicef) 300 mg BID 09/14/19 10:15 09/22/19 13:51 300 MG Ceftriaxone Sodium (Rocephin) 1 gm 1X STAT 09/10/19 17:12 09/10/19 17:13 UNV Cholestyramine Resin (Questran Light) 4 gm DAILY 09/20/19 09:00 09/22/19 13:52 4 GM Dextrose (Dextrose 50%-Water Syringe) 12.5 gm PRN Q15MIN PRN 09/10/19 23:45 Diphenhydramine HCl (Benadryl) 25 mg 1X PRN PRN 09/15/19 11:45 09/16/19 11:44 DC Famotidine (Pepcid) 20 mg QHS 09/12/19 21:00 09/21/19 19:46 20 MG Fentanyl (Duragesic 50mcg/ Hr Patch) 1 patch Q3DAYS 09/13/19 09:00 09/22/19 08:56 1 PATCH Fentanyl Citrate (Fentanyl 2ml Vial) 100 mcg 1X ONCE 09/21/19 15:30 09/21/19 15:34 DC 09/21/19 15:30 50 MCG Finasteride (Proscar) 5 mg DAILY 09/11/19 09:00 09/22/19 13:52 5 MG Gadoterate Meglumine (Dotarem) 5 ml 1X ONCE 09/14/19 13:00 09/14/19 13:01 DC 09/14/19 12:55 5 ML Hydrocortisone Sodium Succinate (Solu-CORTEF) 250 mg STK-MED ONCE 09/14/19 12:50 09/14/19 12:50 DC Hydromorphone HCl (Dilaudid) 2 mg PRN Q3HRS PRN 09/11/19 13:15 09/22/19 13:53 2 MG Info (PHARMACY MONITORING -- do not chart) 1 each PRN DAILY PRN 09/22/19 11:00 Insulin Glargine (Lantus Syringe) 16 unit QHS 09/11/19 21:00 09/20/19 21:59 16 UNIT Insulin Human Lispro (HumaLOG) 0-9 UNITS TIDWMEALS 09/11/19 08:00 09/21/19 16:29 4 UNITS Iohexol (Omnipaque 240 Mg/ml) 50 ml STK-MED ONCE 09/14/19 12:50 09/14/19 12:51 DC Lactobacillus Rhamnosus (Culturelle) 1 cap BID 09/11/19 09:00 09/22/19 08:55 1 CAP Levothyroxine Sodium (Synthroid) 200 mcg DAILY06 09/11/19 06:00 09/22/19 06:03 200 MCG Lidocaine HCl (Buffered Lidocaine 1%) 3 ml 1X ONCE 09/14/19 12:30 09/14/19 12:31 DC 09/14/19 12:30 5 ML Lidocaine/ Epinephrine (LIDOCAINE 1%-EPI 1:100,000 Multi-Dose) 20 ml 1X ONCE 09/21/19 15:30 09/21/19 15:34 DC 09/21/19 15:30 9 ML Lubiprostone (Amitiza) 24 mcg BIDWMEALS 09/11/19 08:00 09/22/19 13:51 24 MCG Magnesium Sulfate 50 ml @ 25 mls/hr PRN DAILY PRN 09/16/19 12:15 Meropenem 500 mg/ Sodium Chloride 50 ml @ 100 mls/hr 1X ONCE 09/10/19 17:45 09/10/19 18:14 DC 09/10/19 17:56 100 MLS/HR Metoprolol Tartrate (Lopressor) 25 mg BID 09/14/19 09:30 09/22/19 08:55 25 MG Midazolam HCl (Versed) 2 mg 1X ONCE 09/21/19 15:30 09/21/19 15:34 DC 09/21/19 15:30 1 MG Morphine Sulfate (Ms Contin) 60 mg TID 09/11/19 09:00 09/22/19 13:52 60 MG Multivitamins (Thera M Plus) 1 tab DAILY 09/11/19 09:00 09/22/19 13:52 1 TAB Non-Formulary Medication (Methylnaltrexone Spray (Relistor)) 150 mg DAILY 09/11/19 09:00 09/12/19 15:54 DC Ondansetron HCl (Zofran Odt) 4 mg PRN Q8HRS PRN 09/10/19 23:45 Pantoprazole Sodium (Protonix) 40 mg DAILYAC 09/11/19 07:30 09/11/19 11:47 DC 09/11/19 08:28 40 MG Pharmacy Consult (C.diff Med Screen By Rx) 1 each 1X ONCE 09/10/19 22:30 09/10/19 22:31 DC 09/10/19 22:30 1 EACH Sennosides (Senna) 8.6 mg DAILY 09/11/19 09:00 09/22/19 13:52 8.6 MG Sodium Chloride (Normal Saline Flush) 10 ml 1X PRN PRN 09/22/19 09:00 09/23/19 08:59 Tamsulosin HCl (Flomax) 0.4 mg DAILY 09/11/19 09:00 09/22/19 13:52 0.4 MG Vancomycin HCl (Vanco Per Pharmacy) 1 each PRN DAILY PRN 09/11/19 09:15 09/11/19 12:49 DC Vancomycin HCl (Vancomycin Oral Solution) 125 mg [id number] 09/11/19 13:00 09/22/19 13:55 125 MG Vancomycin HCl 1.5 gm/Sodium Chloride 500 ml @ 250 mls/hr 1X ONCE 09/10/19 17:45 09/10/19 19:44 DC 09/10/19 19:37 250 MLS/HR Lab Laboratory Tests Test 09/21/19 16:26 09/21/19 20:39 09/22/19 05:45 09/22/19 08:06 Glucose (Fingerstick) 165 mg/dL (70-99) 157 mg/dL (70-99) 123 mg/dL (70-99) Sodium Level 138 mmol/L (136-145) Potassium Level 4.1 mmol/L (3.5-5.1) Chloride Level 104 mmol/L (98-107) Carbon Dioxide Level 29 mmol/L (21-32) Anion Gap 5 (6-14) Blood Urea Nitrogen 27 mg/dL (8-26) Creatinine 2.7 mg/dL (0.7-1.3) Estimated GFR (Cockcroft-Gault) 23.0 Glucose Level 121 mg/dL (70-99) Calcium Level 8.6 mg/dL (8.5-10.1) Phosphorus Level 4.0 mg/dL (2.6-4.7) Albumin 2.0 g/dL (3.4-5.0) Test 09/22/19 13:52 Glucose (Fingerstick) 149 mg/dL (70-99) Results All relevant outside records, renal labs, imaging studies, telemetry/EKG's were reviewed. GUNNAR IGLESIAS MD Sep 22, 2019 14:06
[2019-09-22 15:00] VITALS: BP 166/64
[2019-09-22 19:52] VITALS: BP 157/55
[2019-09-22] MEDS: FAMOTIDINE 20 MG TABLET. PO SCH (21:44)
[2019-09-22] MEDS: INSULIN GLARGINE SYRINGE. SQ SCH (21:58)
[2019-09-22 23:54] VITALS: BP 151/60
[2019-09-23] MEDS: HYDROmorphone 2 MG/ML VIAL IVP PRN ×7 (00:46→20:43)
[2019-09-23 03:45] VITALS: BP 174/67
[2019-09-23] MEDS: LEVOTHYROXINE 100 MCG TABLET PO SCH (06:38)
[2019-09-23 07:19] LABS: CALCIUM 8.4 mg/dL (8.5-10.1); CREATININE 2.2 mg/dL (0.7-1.3); GFR 29.2; PHOSPHORUS 3.6 mg/dL (2.6-4.7); POTASSIUM 4.1 mmol/L (3.5-5.1)
[2019-09-23 07:20] VITALS: BP 162/55
[2019-09-23] MEDS: INSULIN LISPRO 300 UNITS/3 ML VIAL. SQ SCH ×3 (08:00→17:45)
[2019-09-23] MEDS: ASPIRIN ENTERIC COATED 81 MG TABLET.DR. PO SCH (09:06)
[2019-09-23] MEDS: LACTOBACILLUS RHAMNOSUS GG 1 CAPSULE. PO SCH ×2 (09:06→20:26)
[2019-09-23] MEDS: MULTIVITAMIN with MINERAL TABLET. PO SCH (09:06)
[2019-09-23] MEDS: ATORVASTATIN CALCIUM 20 MG TABLET PO SCH (09:06)
[2019-09-23] MEDS: SENNOSIDES 8.6 MG TABLET PO SCH (09:06)
[2019-09-23] MEDS: ASCORBIC ACID 500 MG TABLET PO SCH (09:06)
[2019-09-23] MEDS: LUBIPROSTONE 24 MCG CAPSULE PO SCH ×2 (09:06→17:35)
[2019-09-23] MEDS: METOPROLOL TART IMMED RELEASE 25 MG TABLET. PO SCH ×2 (09:07→20:27)
[2019-09-23] MEDS: MORPHINE ER 30 MG TABLET.ER PO SCH ×3 (09:07→20:26)
[2019-09-23] MEDS: CHOLESTYRAMINE/ASPARTAME 4 GM PACKET PO SCH (09:08)
[2019-09-23] MEDS: FINASTERIDE 5 MG TABLET. PO SCH (09:08)
[2019-09-23] MEDS: TAMSULOSIN 0.4 MG CAP.ER.24H. PO SCH (09:08)
--- NOTE | 2019-09-23 09:33 | PN ---
DATE: 09/23/2019 SUBJECTIVE: The patient is resting, slightly propped up in bed, in no apparent distress. He is awake, alert, continued to complain of pain; however, his diarrhea has largely subsided. He has his tunnelled hemodialysis catheter in place and has a chair time at the [facility], hopefully will be discharged to [facility] tomorrow. PHYSICAL EXAMINATION: GENERAL: When I examined him this morning, he looked pale, not jaundice, cyanosis or thyromegaly. No jugular venous distension. No limb edema. VITAL SIGNS: Her heart rate was 57, blood pressure was 174/67, temperature was 98.1, respiratory rate was 18 and oxygen saturation was 96% on room air. HEAD, EYES, EARS, NOSE AND THROAT: Showed normocephalic, atraumatic. NECK: Supple. HEART: Showed normal first and second heart sounds. No gallop or murmur. CHEST: Clear to auscultation. No crepitation or rhonchi. ABDOMEN: Distended, soft, nontender. NEUROLOGIC: He is awake, alert, responding appropriately. All cranial nerves intact. He moves his upper extremities to much good extent than lower extremities, mostly bed bound, wheelchair bound. He ambulates with a walker with standby assist. His intake over the last 24 hours was 300, output was 1230. LABORATORY DATA: His blood sugar seems to be reasonably controlled. As of yesterday, his BUN was 27, creatinine 2.7, H and H was 9.4 and 28.5. ASSESSMENT: 1. Acute on chronic kidney injury, for which he has had a tunnelled hemodialysis catheter placed and has had an outpatient chair time at [facility] on Tuesday, , Tuesday. He will be discharged back to [facility] on 09/24/2019. 2. Recurrent episodes of diarrhea with positive stool for Clostridium difficile toxins, treated with oral vancomycin, lactobacillus, cholestyramine and her diarrhea has largely subsided. 3. The patient has multiple other medical problems including: A. Benign prostatic hypertrophy with bladder outlet obstruction requiring indwelling Bledsoe catheter. B. Hypothyroidism. C. Hypogonadism. D. Neurofibromatosis. E. Type 2 diabetes mellitus. F. Chronic fatigue syndrome. G. Chronic pain syndrome. H. He had infected left shoulder prosthesis with growth of group B Streptococcus, treated with IV ceftriaxone for 6 weeks and has been on suppressive therapy since then in the form of cefdinir. He was initially started on Keflex; however, he developed severe leukopenia that has since resolved. PLAN: 1. To continue with oral vancomycin, lactobacillus and cholestyramine. 2. Continue to monitor his kidney function and urine output. 3. Continue with hemodialysis as per Nephrology team. 4. Continue with pain management. 5. Continue with physical and occupational therapy. I will repeat all his labs tomorrow and hopefully discharge him to [facility] to continue outpatient hemodialysis. KERI DIGGS MD DR: PAIGE/chastity JOB#: [id number] / [id number]
[2019-09-23] MEDS: VANCOMYCIN 125 MG/2.5 ML ORAL SOLUTION. PO SCH ×4 (10:15→20:49)
[2019-09-23] MEDS: CEFDINIR 300 MG CAPSULE PO SCH ×2 (10:15→20:25)
[2019-09-23 11:44] VITALS: BP 167/51
--- NOTE | 2019-09-23 13:38 | PDOC ---
SUBJECTIVE ROS no complaints, OBJECTIVE Vital Signs Vital Signs Date Time Temp Pulse Resp B/P (MAP) Pulse Ox O2 Delivery O2 Flow Rate FiO2 09/23/19 11:44 98.2 85 18 167/51 (89) 97 Room Air 98.2 I & 0 Intake and Output 09/23/19 07:00 Intake Total 954 ml Output Total 800 ml Balance 154 ml Intake Oral 954 ml Output Urine Total 800 ml # Bowel Movements 1 PHYSICAL EXAM Physical Exam GENERAL: NAD HEENT: Oral cavity clear NECK: Supple LUNGS: Clear. HEART: S1, S2 ABDOMEN: Obese, + hernia, soft, nontender, + BS : Bledsoe in place EXTREMITIES: Mild pitting edema present. Left calcaneal has a small wound, NEUROLOGIC: Alert, oriented, Tunneled HDC 09/21/19 DIAGNOSIS/ASSESSMENT Assessment & Plan New onset ESRD - TTS Has required CRRt for RENATA earlier this year and came off HD with CKD Access- Tunneled HDC 09/21 OP chair time TTS at [facility] Pancolitis with diarrhea, C. 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 Coronary artery disease Anemia- NEHA per protocol for goal Hgb 10-11 DC planned for tomorrow to [place] per primary COMMENT/RELEVANT DATA Meds Current Medications Medications (Trade) Dose Ordered Sig/Lauren Start Time Stop Time Status Last Admin Dose Admin Acetaminophen (Tylenol) 500 mg 1X PRN PRN 09/15/19 11:45 09/16/19 11:44 DC Albumin Human 200 ml @ 200 mls/hr 1X PRN PRN 09/22/19 09:00 09/22/19 14:59 DC Ascorbic Acid (Vitamin C) 500 mg DAILY 09/11/19 09:00 09/23/19 09:06 500 MG Aspirin (Ecotrin) 81 mg [id number] 09/15/19 08:00 09/23/19 09:06 81 MG Atorvastatin Calcium (Lipitor) 20 mg DAILY 09/11/19 09:00 09/23/19 09:06 20 MG Azithromycin 250 ml @ 250 mls/hr 1X STAT 09/10/19 17:12 09/10/19 18:11 DC 09/10/19 17:12 250 MLS/HR Bisacodyl (Dulcolax Supp) 10 mg PRN DAILY PRN 09/10/19 23:30 Cefazolin Sodium 50 ml @ 100 mls/hr 1X ONCE 09/21/19 15:30 09/21/19 15:59 DC 09/21/19 15:30 100 MLS/HR Cefdinir (Omnicef) 300 mg BID 09/14/19 10:15 09/23/19 10:15 300 MG Ceftriaxone Sodium (Rocephin) 1 gm 1X STAT 09/10/19 17:12 09/10/19 17:13 UNV Cholestyramine Resin (Questran Light) 4 gm DAILY 09/20/19 09:00 09/23/19 09:08 4 GM Dextrose (Dextrose 50%-Water Syringe) 12.5 gm PRN Q15MIN PRN 09/10/19 23:45 Diphenhydramine HCl (Benadryl) 25 mg 1X PRN PRN 09/15/19 11:45 09/16/19 11:44 DC Famotidine (Pepcid) 20 mg QHS 09/12/19 21:00 09/22/19 21:44 20 MG Fentanyl (Duragesic 50mcg/ Hr Patch) 1 patch Q3DAYS 09/13/19 09:00 09/22/19 08:56 1 PATCH Fentanyl Citrate (Fentanyl 2ml Vial) 100 mcg 1X ONCE 09/21/19 15:30 09/21/19 15:34 DC 09/21/19 15:30 50 MCG Finasteride (Proscar) 5 mg DAILY 09/11/19 09:00 09/23/19 09:08 5 MG Gadoterate Meglumine (Dotarem) 5 ml 1X ONCE 09/14/19 13:00 09/14/19 13:01 DC 09/14/19 12:55 5 ML Hydrocortisone Sodium Succinate (Solu-CORTEF) 250 mg STK-MED ONCE 09/14/19 12:50 09/14/19 12:50 DC Hydromorphone HCl (Dilaudid) 2 mg PRN Q3HRS PRN 09/11/19 13:15 09/23/19 10:35 2 MG Info (PHARMACY MONITORING -- do not chart) 1 each PRN DAILY PRN 09/22/19 11:00 Insulin Glargine (Lantus Syringe) 16 unit QHS 09/11/19 21:00 09/22/19 21:58 10 UNIT Insulin Human Lispro (HumaLOG) 0-9 UNITS TIDWMEALS 09/11/19 08:00 09/23/19 13:29 4 UNITS Iohexol (Omnipaque 240 Mg/ml) 50 ml STK-MED ONCE 09/14/19 12:50 09/14/19 12:51 DC Lactobacillus Rhamnosus (Culturelle) 1 cap BID 09/11/19 09:00 09/23/19 09:06 1 CAP Levothyroxine Sodium (Synthroid) 200 mcg DAILY06 09/11/19 06:00 09/23/19 06:38 200 MCG Lidocaine HCl (Buffered Lidocaine 1%) 3 ml 1X ONCE 09/14/19 12:30 09/14/19 12:31 DC 09/14/19 12:30 5 ML Lidocaine/ Epinephrine (LIDOCAINE 1%-EPI 1:100,000 Multi-Dose) 20 ml 1X ONCE 09/21/19 15:30 09/21/19 15:34 DC 09/21/19 15:30 9 ML Lubiprostone (Amitiza) 24 mcg BIDWMEALS 09/11/19 08:00 09/23/19 09:06 24 MCG Magnesium Sulfate 50 ml @ 25 mls/hr PRN DAILY PRN 09/16/19 12:15 Meropenem 500 mg/ Sodium Chloride 50 ml @ 100 mls/hr 1X ONCE 09/10/19 17:45 09/10/19 18:14 DC 09/10/19 17:56 100 MLS/HR Metoprolol Tartrate (Lopressor) 25 mg BID 09/14/19 09:30 09/23/19 09:07 25 MG Midazolam HCl (Versed) 2 mg 1X ONCE 09/21/19 15:30 09/21/19 15:34 DC 09/21/19 15:30 1 MG Morphine Sulfate (Ms Contin) 60 mg TID 09/11/19 09:00 09/23/19 09:07 60 MG Multivitamins (Thera M Plus) 1 tab DAILY 09/11/19 09:00 09/23/19 09:06 1 TAB Non-Formulary Medication (Methylnaltrexone [place] (Relistor)) 150 mg DAILY 09/11/19 09:00 09/12/19 15:54 DC Ondansetron HCl (Zofran Odt) 4 mg PRN Q8HRS PRN 09/10/19 23:45 Pantoprazole Sodium (Protonix) 40 mg DAILYAC 09/11/19 07:30 09/11/19 11:47 DC 09/11/19 08:28 40 MG Pharmacy Consult (CAlexusdiff Med Screen By Rx) 1 each 1X ONCE 09/10/19 22:30 09/10/19 22:31 DC 09/10/19 22:30 1 EACH Sennosides (Senna) 8.6 mg DAILY 09/11/19 09:00 09/23/19 09:06 8.6 MG Sodium Chloride (Normal Saline Flush) 10 ml 1X PRN PRN 09/22/19 09:00 09/23/19 08:59 DC Tamsulosin HCl (Flomax) 0.4 mg DAILY 09/11/19 09:00 09/23/19 09:08 0.4 MG Vancomycin HCl (Vanco Per Pharmacy) 1 each PRN DAILY PRN 09/11/19 09:15 09/11/19 12:49 DC Vancomycin HCl (Vancomycin Oral Solution) 125 mg [id number] 09/11/19 13:00 09/23/19 10:15 125 MG Vancomycin HCl 1.5 gm/Sodium Chloride 500 ml @ 250 mls/hr 1X ONCE 09/10/19 17:45 09/10/19 19:44 DC 09/10/19 19:37 250 MLS/HR Lab Laboratory Tests Test 09/22/19 13:52 09/22/19 17:15 09/22/19 20:47 09/23/19 06:55 Glucose (Fingerstick) 149 mg/dL (70-99) 208 mg/dL (70-99) 166 mg/dL (70-99) Sodium Level 139 mmol/L (136-145) Potassium Level 4.1 mmol/L (3.5-5.1) Chloride Level 106 mmol/L (98-107) Carbon Dioxide Level 28 mmol/L (21-32) Anion Gap 5 (6-14) Blood Urea Nitrogen 19 mg/dL (8-26) Creatinine 2.2 mg/dL (0.7-1.3) Estimated GFR (Cockcroft-Gault) 29.2 Glucose Level 72 mg/dL (70-99) Calcium Level 8.4 mg/dL (8.5-10.1) Phosphorus Level 3.6 mg/dL (2.6-4.7) Albumin 2.0 g/dL (3.4-5.0) Test 09/23/19 11:39 Glucose (Fingerstick) 169 mg/dL (70-99) Results All relevant outside records, renal labs, imaging studies, telemetry/EKG's were reviewed. GUNNAR IGLESIAS MD Sep 23, 2019 13:38
[2019-09-23 15:41] VITALS: BP 164/55
[2019-09-23 19:30] VITALS: BP 193/54
[2019-09-23] MEDS: FAMOTIDINE 20 MG TABLET. PO SCH (20:43)
[2019-09-23] MEDS: INSULIN GLARGINE SYRINGE. SQ SCH (20:48)
[2019-09-23 23:25] VITALS: BP 140/65
[2019-09-24] MEDS: HYDROmorphone 2 MG/ML VIAL IVP PRN ×4 (00:51→13:09)
[2019-09-24 03:44] VITALS: BP 133/70
[2019-09-24 03:51] LABS: HEMATOCRIT 24.9 % (39.0-53.0); HEMOGLOBIN 8.3 g/dL (13.0-17.5); RED BLOOD COUNT 2.69 x10^6/uL (4.30-5.70); RED CELL DISTRIBUTION WIDTH 15.7 % (11.5-14.5); WHITE BLOOD COUNT 5.2 x10^3/uL (4.0-11.0)
[2019-09-24 04:02] LABS: CALCIUM 8.5 mg/dL (8.5-10.1); CREATININE 2.6 mg/dL (0.7-1.3); GFR 24.1; POTASSIUM 4.1 mmol/L (3.5-5.1)
[2019-09-24] MEDS: LEVOTHYROXINE 100 MCG TABLET PO SCH (05:59)
[2019-09-24 07:35] VITALS: BP 151/50
--- NOTE | 2019-09-24 07:40 | NUR ---
Pt BS was at 26, received 2 applejuices, 2 ally crackers, and 25ml of dextrose via IV. Iv was then flushed and rechecked, BS went from 25 to 34 in 5 minutes, and then 89 in 15 minutes. Pt ate breakfast as soon as it came up. Pt was cool and sweaty upon BS checked the first initial. Alert and oriented to himself, then at 36 he was A&O x4. Called Dr. Hancock, and closely monitored BS.
[2019-09-24] MEDS: INSULIN LISPRO 300 UNITS/3 ML VIAL. SQ SCH ×2 (08:00→12:00)
[2019-09-24] MEDS ORDERED: LEVO200T5 PO (08:56)
[2019-09-24] MEDS ORDERED: VANC125C3 PO (08:56)
--- NOTE | 2019-09-24 09:11 | SNU/HH DC ---
DISCHARGE ORDERS DISCHARGE INFORMATION: DISCHARGE DATE: Sep 24, 2019 FINAL DIAGNOSIS Problems Medical Problems: (1) RENATA (acute kidney injury) Status: Acute (2) Diarrhea Status: Acute (3) Pneumonia Status: Acute CONDITION ON DISCHARGE: Stable CODE STATUS: Code Status: DNR/DNI [facility]: SNF STAY <30 DAYS: Yes POST DISCHARGE ORDERS: ACTIVITY ORDERS: Activity as tolerated DIET AFTER DISCHARGE: Renal TREATMENT/EQUIPMENT ORDERS: Physical Therapy For: Evalulation/Treatment Occupational Therapy For: Evaluation/Treatment DISCHARGE MEDICATIONS: Home Meds Reported Medications Ondansetron Hcl (ZOFRAN) 4 Mg Tablet, 1 TAB PO Q4HRS PRN for NAUSEA, #20 TAB 09/10/19 Ascorbic Acid (VITAMIN C) 100 Mg Tablet, 1 TAB PO DAILY for supplement for 30 Days, #30 TAB 0 Refills 09/10/19 Tamsulosin Hcl (FLOMAX) 0.4 Mg Cap.er.24h, 1 CAP PO DAILY for urinary retention, #30 CAP 11 Refills 09/10/19 Sennosides (SENNA LAXATIVE) 8.6 Mg Tablet, 8.6 MG PO DAILY for constipation, TAB 09/10/19 Methylnaltrexone [place] (Relistor) 150 Mg Tablet, 150 MG PO DAILY for constipation, TAB 09/10/19 Pantoprazole Sodium (PANTOPRAZOLE SODIUM ) 40 Mg Tablet.dr, 40 MG PO DAILYAC for GERD, TAB 09/10/19 Multivitamin (MULTI VITAMIN DAILY) 1 Each Tablet, 1 TAB PO DAILY for wound healing for 30 Days, #30 TAB 0 Refills 09/10/19 Morphine Sulfate (MORPHINE SULFATE) 30 Mg Tablet, 2 TAB PO TID for Pain, #120 TAB 09/10/19 Linaclotide (LINZESS) 145 Mcg Capsule, 145 MCG PO DAILY07 for IRRITABLE BOWEL, CAP 09/10/19 Insulin Glargine,Hum.rec.anlog (LANTUS SOLOSTAR) 100 Unit/1 Ml Insuln.pen, 16 UNIT SQ QHS for DM, #15 ML 3 Refills 09/10/19 Hydromorphone Hcl (HYDROMORPHONE HCL) 4 Mg Tablet, 4 MG PO PRN Q6HRS PRN for PAIN, TAB 09/10/19 Fentanyl (DURAGESIC 50mcg/hr) 1 Each Patch.td72, 1 PATCH TP Q3DAYS for Pain MDD 0.33 Patch(s), #2 PATCH 0 Refills 09/10/19 Bisacodyl (BISACODYL) 10 Mg Supp.rect, 10 MG RC PRN DAILY PRN for CONSTIPATION, SUPP.RECT 0 Refills 09/10/19 Cefdinir (CEFDINIR) 300 Mg Capsule, 1 CAP PO BID for Lower WBC, #14 CAP 09/10/19 Lactobacillus Acidophilus (ACIDOPHILUS) 1 Each Capsule, 1 CAP PO BID for supplement, CAP 0 Refills 09/10/19 Atorvastatin Calcium (ATORVASTATIN CALCIUM) 20 Mg Tablet, 1 TAB PO DAILY for cholesterol, #30 TAB 5 Refills 09/10/19 B12/Levomefolate Calcium/B-6 (FOLTX TABLET) 1 Each Tablet, 1 EACH PO AFTRNOON for Supplement, TAB 06/07/19 Finasteride (FINASTERIDE) 5 Mg Tablet, 1 TAB PO DAILY for Prostate, #30 TAB 11 Refills 06/07/19 Levothyroxine Sodium (LEVOTHYROXINE SODIUM) 175 Mcg Tablet, 1 TAB PO DAILY for Hypothyroidism, #30 TAB 5 Refills 06/07/19 KERI DIGGS MD Sep 24, 2019 09:11
[2019-09-24] MEDS: ASPIRIN ENTERIC COATED 81 MG TABLET.DR. PO SCH (10:00)
[2019-09-24] MEDS: SENNOSIDES 8.6 MG TABLET PO SCH (10:00)
[2019-09-24] MEDS: METOPROLOL TART IMMED RELEASE 25 MG TABLET. PO SCH (10:00)
[2019-09-24] MEDS: CHOLESTYRAMINE/ASPARTAME 4 GM PACKET PO SCH (10:00)
[2019-09-24] MEDS: MULTIVITAMIN with MINERAL TABLET. PO SCH (10:00)
[2019-09-24] MEDS: CEFDINIR 300 MG CAPSULE PO SCH (10:01)
[2019-09-24] MEDS: VANCOMYCIN 125 MG/2.5 ML ORAL SOLUTION. PO SCH ×2 (10:01→12:43)
[2019-09-24] MEDS: MORPHINE ER 30 MG TABLET.ER PO SCH ×2 (10:01→12:43)
[2019-09-24] MEDS: ATORVASTATIN CALCIUM 20 MG TABLET PO SCH (10:01)
[2019-09-24] MEDS: FINASTERIDE 5 MG TABLET. PO SCH (10:01)
[2019-09-24] MEDS: LUBIPROSTONE 24 MCG CAPSULE PO SCH (10:01)
[2019-09-24] MEDS: TAMSULOSIN 0.4 MG CAP.ER.24H. PO SCH (10:02)
[2019-09-24] MEDS: LACTOBACILLUS RHAMNOSUS GG 1 CAPSULE. PO SCH (10:02)
[2019-09-24] MEDS: ASCORBIC ACID 500 MG TABLET PO SCH (10:05)
--- NOTE | 2019-09-24 10:41 | PDOC ---
Renal-Progress Notes Subjective Notes Notes NONE History of Present Illness Hx of present illness NO CHANGE Vitals Vitals Vital Signs Date Time Temp Pulse Resp B/P (MAP) Pulse Ox O2 Delivery O2 Flow Rate FiO2 09/24/19 10:01 92 Room Air 09/24/19 10:00 50 151/50 09/24/19 07:35 97.4 18 97.4 09/24/19 04:39 2.0 Weight Weight [ ] I.O. Intake and Output Intake and Output 09/24/19 07:00 Intake Total 1120 ml Output Total 750 ml Balance 370 ml Intake Oral 1120 ml Output Urine Total 750 ml Labs Labs Laboratory Tests Test 09/23/19 11:39 09/23/19 17:37 09/23/19 20:41 09/24/19 02:35 Glucose (Fingerstick) 169 mg/dL (70-99) 218 mg/dL (70-99) 132 mg/dL (70-99) White Blood Count 5.2 x10^3/uL (4.0-11.0) Red Blood Count 2.69 x10^6/uL (4.30-5.70) Hemoglobin 8.3 g/dL (13.0-17.5) Hematocrit 24.9 % (39.0-53.0) Mean Corpuscular Volume 93 fL (79-100) Mean Corpuscular Hemoglobin 31 pg (25-35) Mean Corpuscular Hemoglobin Concent 33 g/dL (31-37) Red Cell Distribution Width 15.7 % (11.5-14.5) Platelet Count 279 x10^3/uL (140-400) Sodium Level 140 mmol/L (136-145) Potassium Level 4.1 mmol/L (3.5-5.1) Chloride Level 107 mmol/L (98-107) Carbon Dioxide Level 30 mmol/L (21-32) Anion Gap 3 (6-14) Blood Urea Nitrogen 22 mg/dL (8-26) Creatinine 2.6 mg/dL (0.7-1.3) Estimated GFR (Cockcroft-Gault) 24.1 Glucose Level 68 mg/dL (70-99) Calcium Level 8.5 mg/dL (8.5-10.1) Thyroid Stimulating Hormone (TSH) 41.333 uIU/mL (0.358-3.74) Test 09/24/19 07:03 09/24/19 07:31 09/24/19 07:50 Glucose (Fingerstick) 26 mg/dL (70-99) 32 mg/dL (70-99) 89 mg/dL (70-99) Micro Micro Microbiology 09/11/19 Blood Culture - Final, Complete NO GROWTH AFTER 5 DAYS 09/10/19 Stool Culture - Final, Complete 09/10/19 Stool Culture Result 1 (BORA) - Final, Complete 09/10/19 Campylobacter Antigen Assay - Final, Complete 09/10/19 Campylobactor Result 1 - Final, Complete 09/10/19 Shiga Toxin Test - Final, Complete Review of Systems Constitutional: yes: alert, oriented Ears/Nose/Throat: Yes: no symptom reported Eyes: Yes: no symptom reported Pulmonary: Yes no symptom reported Cardiovascular: Yes no symptom reported Gastrointestional: Yes: no symptom reported Genitourinary: Yes: no symptom reported Musculoskeletal: Yes: no symptom reported Skin: Yes no symptom reported Psychiatric/Neurological: Yes: no symptom reported Endocrine: Yes: no symptom reported Physical Exam General Appearance: no apparent distress Skin: warm Respiratory: decreased breath sounds Heart: S1S2 Abdomen: soft, bowel sounds present Genitourinary: bladder flat Extremities: pulses present Neurology: alert Musculoskeletal: Other Assessment Assessment IMP ESRD ANEMIA HTN CAD PLAN HD TTS OP HD BEING SET UP D/C SOON WILL FOLLOW DEREJE VOGEL MD Sep 24, 2019 10:41
[2019-09-24 11:01] VITALS: BP 173/59
--- NOTE | 2019-09-24 14:07 | NUR ---
Pt was escorted out via wheelchair to [facility] transportation. This Rn removed telemonitor and IV. Pt was given pain meds just prior to discharge. Gave report to [facility] nurse.
--- NOTE | 2019-09-24 14:27 | DS ---
DATE OF DISCHARGE: 09/24/2019 HOSPITAL COURSE: The patient is a 78-year-old male patient, a resident at [facility], who was admitted on 09/11/2019, with the current bouts of diarrhea, fever and altered mental status. His BUN and creatinine also has dramatically risen to 75 and 4.6. He did receive 2 liters of fluid, was treated with IV vancomycin, meropenem as he is allergic to penicillin. Subsequently, his stool sample came back positive for C. diff toxins and he was started on oral vancomycin. He was seen also in consultation by the hospice coordinator and has initially a temporary hemodialysis catheter and start hemodialysis. His diarrhea has subsided. However, his kidney function continued to be elevated without much improvement and therefore, he underwent tunneled hemodialysis catheter placement and once he did have a chair time at the [facility] and will be dialyzing there on Tuesday, , Tuesday and therefore, a decision was made to discharge him back to [facility] to continue tapering course of oral vancomycin. Continue with cefdinir for suppressive treatment for his group B streptococcal infection in his left shoulder prosthesis. PHYSICAL EXAMINATION: GENERAL: When I saw him this morning, he looked pale, but no jaundice, cyanosis or thyromegaly. No jugular venous distention. No limb edema. VITAL SIGNS: Her heart rate was 50, blood pressure was 151/50, temperature 97.4, respiratory rate was 18, and oxygen saturation was 92% on room air. HEAD, EYES, EARS, NOSE AND THROAT: Showed normocephalic, atraumatic. NECK: Supple. HEART: Showed normal first and second heart sounds. No gallop or murmur. CHEST: Clear to auscultation. No crepitation or rhonchi. ABDOMEN: Distended, soft, nontender. No guarding or rigidity. No organomegaly. All hernial orifice intact. Bowel sounds normal. NEUROLOGIC: He was awake, alert, responding appropriately. All cranial nerves are intact. He moves his upper extremities to much good extent than lower extremities, mostly bedbound, chair bound. His intake over the last 24 hours was 950, output was 800. LABORATORY DATA: As of this morning, his serum sodium was 140, potassium 4.1, chloride 107, bicarbonate 30, anion gap of 3. His BUN was 22, creatinine 2.6, estimated GFR was 24, glucose was 68, calcium was 8.5. His TSH was high at 441.33. His white cell count was 5200, hemoglobin 8.3, hematocrit 25, MCV 93, and platelet count 279,000. DISCHARGE MEDICATIONS: He was discharged to [facility] to continue on levothyroxine sodium at 300 mcg p.o. daily, vancomycin 125 mg 4 times a day for 2 weeks, then 3 times a day for 2 week, and 2 times twice a day for 2 weeks. Continue with ascorbic acid 100 mg once a day, atorvastatin 20 mg at bedtime, multivitamin 1 tablet once a day, bisacodyl 10 mg suppository rectally daily p.r.n. for constipation, cefdinir 300 mg twice a day, fentanyl 50 mcg per hour topically q.72 hours, finasteride 5 mg once a day, hydromorphone 4 mg p.o. every 3 hours. He is on Lantus 16 units at bedtime, Lactobacillus acidophilus 1 capsule twice a day, linaclotide Linzess 145 mcg once a day, Relistor 150 mg daily, morphine sulfate 60 mg 3 times a day, multivitamin 1 tablet once a day, Zofran 4 mg tablet 1 tablet p.o. q.4 hourly, Protonix 40 mg daily, senna 1 tablet once a day, and tamsulosin for Flomax 0.4 mg daily for benign prostatic hypertrophy. FINAL DISCHARGE DIAGNOSES: 1. Acute on chronic kidney injury, for which he has a tunneled hemodialysis catheter placed successfully and has an outpatient chair time at [facility] on Tuesday, and Tuesday. He will be discharged today to [facility]. 2. Recurrent bouts of diarrhea with positive stool for C. diff toxins treated with oral vancomycin, lactobacillus and cholestyramine. His diarrhea has largely subsided. The patient has multiple other medical problems including: A. Benign prostatic hypertrophy with bladder outlet obstruction requiring indwelling Bledsoe catheter. B. Hypothyroidism is both clinically and biochemically hypothyroid. I increased her Synthroid to 300 mcg. C. Hypogonadism. D. Neurofibromatosis. E. Type 2 diabetes mellitus. F. Chronic fatigue syndrome. G. Chronic pain syndrome. H. He had infected left shoulder prosthesis with growth of group B Streptococcus, treated with IV ceftriaxone for 6 weeks, has been on suppressive therapy since then in the form of cefdinir. He was started on Keflex; however, he developed severe leukopenia that has since resolved. KERI DIGGS MD DR: PAIGE/chastity JOB#: [id number] / [id number]
--- NOTE | 2019-09-24 14:36 | NUR ---
orders faxed to [facility]. Pt will transport at 1330. Pt and notified. Pt will start HD tomorrow at [facility]. Packet on chart.
== END 2019-09-24 15:55 | disposition home or self-care (01) | DRG 871 ==
LOC: ER 14:36 → 6 SOUTH 17:33
PROVIDERS: ADMIT Internal Medicine; ATTEND Internal Medicine
PROC: 02H633Z Insertion of Infusion Device into Right Atrium, Percutaneous Approach (ICD-10-PCS; principal; 2019-09-14)
PROC: B5181ZA Fluoroscopy of Superior Vena Cava using Low Osmolar Contrast, Guidance (ICD-10-PCS; 2019-09-14)
PROC: B548ZZA Ultrasonography of Superior Vena Cava, Guidance (ICD-10-PCS; 2019-09-14)
PROC: 5A1D70Z Performance of Urinary Filtration, Intermittent, Less than 6 Hours Per Day (ICD-10-PCS; 2019-09-14)
PROC: 5A1D70Z Performance of Urinary Filtration, Intermittent, Less than 6 Hours Per Day (ICD-10-PCS; 2019-09-15)
PROC: 5A1D70Z Performance of Urinary Filtration, Intermittent, Less than 6 Hours Per Day (ICD-10-PCS; 2019-09-18)
PROC: 5A1D70Z Performance of Urinary Filtration, Intermittent, Less than 6 Hours Per Day (ICD-10-PCS; 2019-09-20)
PROC: 02PAX3Z Removal of Infusion Device from Heart, External Approach (ICD-10-PCS; 2019-09-21)
PROC: 02H633Z Insertion of Infusion Device into Right Atrium, Percutaneous Approach (ICD-10-PCS; 2019-09-21)
PROC: 0JH63XZ Insertion of Tunneled Vascular Access Device into Chest Subcutaneous Tissue and Fascia, Percutaneous Approach (ICD-10-PCS; 2019-09-21)
PROC: B5181ZA Fluoroscopy of Superior Vena Cava using Low Osmolar Contrast, Guidance (ICD-10-PCS; 2019-09-21)
PROC: 5A1D70Z Performance of Urinary Filtration, Intermittent, Less than 6 Hours Per Day (ICD-10-PCS; 2019-09-22)
DX: A41.9 Sepsis, unspecified organism (principal); N17.0 Acute kidney failure with tubular necrosis; J18.9 Pneumonia, unspecified organism; G93.41 Metabolic encephalopathy; N18.6 End stage renal disease; A04.71 Enterocolitis due to Clostridium difficile, recurrent; I12.0 Hypertensive chronic kidney disease with stage 5 chronic kidney disease or end stage renal disease; I47.1 Supraventricular tachycardia; N13.8 Other obstructive and reflux uropathy; D64.9 Anemia, unspecified; E03.9 Hypothyroidism, unspecified; E11.22 Type 2 diabetes mellitus with diabetic chronic kidney disease; E78.5 Hyperlipidemia, unspecified; G89.4 Chronic pain syndrome; I25.10 Atherosclerotic heart disease of native coronary artery without angina pectoris; N40.1 Benign prostatic hyperplasia with lower urinary tract symptoms; Z86.19 Personal history of other infectious and parasitic diseases; Z88.0 Allergy status to penicillin; Z95.1 Presence of aortocoronary bypass graft; Z96.612 Presence of left artificial shoulder joint; Z99.2 Dependence on renal dialysis; F32.9 Major depressive disorder, single episode, unspecified; Q85.00 Neurofibromatosis, unspecified; Z88.8 Allergy status to other drugs, medicaments and biological substances; Z74.01 Bed confinement status
CPT/HCPCS: 36415; 36556; 36581; 71046; 74176; 76937; 77001; 80048; 80053; 80069; 81001; 82962; 83605; 83735; 84100; 84443; 85007; 85014; 85018; 85025; 85027; 85610; 85730; 86704; 87040; 87045; 87340; 87493; 87804; 96361; 96365; 96366; 96367; 96368; 99152; 99153; A9575; C1750; C1769; C1892; J0456; J0690; J1170; J1815; J2185; J2250; J3010; J3370; J3490; J7030; J7040; J7042; 97110; 97116; 97530; 99285-25; G0378

== ENCOUNTER 2020-04-25 17:48 | Inpatient (IN) | payer MEDICARE ==
[2020-04-25] VITALS (7 sets, daily range): BP systolic 103–137; BP diastolic 47–60
[~2020-04-25] VITALS: Ht 177.8 cm; Wt 99.1 kg
[~2020-04-25 17:48] MED LIST changes: +ASCO100T4 PO; +ATOR20TA58 PO; +BISA10SU4 RC; +CEFD300C PO; +CYAN500T52 PO; +FENT1PAT91 TP; +HYDR-2868 PO; +HYDR4TAB PO; +LABE200T4 PO; +LACT1CAP2 PO; +LEVO200T5 PO; +LINZESS145 MCG PO; +METH150T PO; +MORP30TA PO; +MULT-245 PO; -NIFE60TA16 PO; +NIFE60TA90 PO; +ONDA4TAB7 PO; +PANT40TA77 PO; +SENN8.6T11 PO; +TAMS0.4C97 PO; +VANC125C3 PO
[2020-04-25] MEDS ORDERED: IV NORMAL SALINE 1000ML BAG 1,000 ML IV SCH (18:40)
[2020-04-25] MEDS ORDERED: IV 1/2 NORMAL SALINE 1,000 ML IV SCH (18:40)
[2020-04-25] MEDS ORDERED: IV DEXTROSE 5 %-0.45 % NACL 1,000 ML IV SCH (18:40)
[2020-04-25] MEDS ORDERED: POTASSIUM CHLORIDE 10MEQ 100 ML IV PRN ×3 (18:45)
--- NOTE | 2020-04-25 18:47 | NUR ---
Nursing Note Pt arrived to ICU room 113 via EMS from [facility]. Report received from ABRAHAM Dominguez at [facility]. Pt settled into room. Monitors placed. VSS. Pt A/O x4. Pt on 2LNC. Dr. Enriquez notified of pts arrival and DKA orders received. Will continue to monitor.
[2020-04-25 20:04] LABS: CALCIUM 8.4 mg/dL (8.5-10.1); CREATININE 4.9 mg/dL (0.7-1.3); GFR 11.5; POTASSIUM 4.5 mmol/L (3.5-5.1)
[2020-04-25 20:08] LABS: MAGNESIUM 2.1 mg/dL (1.8-2.4); PHOSPHORUS 5.8 mg/dL (2.6-4.7)
--- NOTE | 2020-04-25 20:31 | PDOC1 ---
History and Physical Date of Admission: Date of Admission DATE: 04/25/20 TIME: 20:25 Chief Complaint: Problems: (1) Abscess of left shoulder (2) Acute respiratory failure (3) Diarrhea (4) Pneumonia (5) RENATA (acute kidney injury) (6) AMS (altered mental status) (7) Acute kidney injury superimposed on chronic kidney disease (8) Clostridium difficile colitis (9) Diarrhea (10) ESRD on hemodialysis (11) Bledsoe catheter in place (12) ATN (acute tubular necrosis) (13) RENATA (acute kidney injury) (14) CKD (chronic kidney disease), stage III (15) Metabolic acidosis (16) Abscess of left upper extremity (17) CAD (coronary artery disease) (18) Hypotension (19) Stool culture positive for Clostridioides difficile Chief Complain: Possible pneumonia Hypoxia Coffee-ground emesis Recent femur fracture Shortness of air History of Present Illness: HPI: This is a elderly male who apparently is at [facility] because he had a femur fracture recently He had some pain this morning so they gave him some morphine He then became very short of breath and became hypoxic requiring O2 therapy He was sent to [facility] for evaluation where chest x-ray was done The chest x-ray apparently showed some congestion and possible pneumonia Should be noted that he apparently had a Covid-19 test 4 days ago that was negative He also had some coffee-ground emesis while in the ER there at [facility] He does have known history of peptic ulcer disease and he is a dialysis patient as well The ER doctor from [facility] called me If accepted patient is a transfer He is currently examined in the ICU room 113 we were we are consulting pulmonary medicine infectious disease and nephrology and GI Once he arrived to our ICU he also notes that his glucose is in the high 400s and he has a anion gap metabolic acidosis with a gap of 21 so we are also starting DKA protocol Past Medical/Surgical History: PMH/PSH: ESRD on dialysis Previous pneumonia CAD Peptic ulcer disease Diabetes Hypertension Hyperlipidemia Allergies: Allergies: Coded Allergies: Penicillins (Verified Allergy, Intermediate, 09/21/19) Tolerates cephalosporins tapentadol (Verified Allergy, Intermediate, 06/14/19) Iodinated Contrast Media (Verified Adverse Reaction, Intermediate, 09/10/19) Family History: Family History: Hypertension diabetes Social History: Social History: I believe he is retired he does not drink smoke or take drugs Current Medications: Current Medications Current Medications Sodium Chloride 1,000 ml @ 75 mls/hr [id number] IV ; Start 04/25/20 at 18:40 Sodium Chloride 1,000 ml @ 75 mls/hr [id number] IV ; Start 04/25/20 at 18:40 Dextrose/Sodium Chloride 1,000 ml @ 75 mls/hr [id number] IV ; Start 04/25/20 at 18:40 Insulin Human Regular 100 unit/ Sodium Chloride 101 ml @ 0 mls/hr CONT PRN PRN IV PER PROTOCOL; Start 04/25/20 at 18:45 Potassium Chloride/Water 100 ml @ 100 mls/hr PRN Q1HR PRN IV SEE COMMENTS; Start 04/25/20 at 18:45 Potassium Chloride/Water 100 ml @ 100 mls/hr PRN Q1HR PRN IV SEE COMMENTS; Start 04/25/20 at 18:45 Potassium Chloride/Water 100 ml @ 100 mls/hr PRN Q1HR PRN IV SEE COMMENTS; Start 04/25/20 at 18:45 Magnesium Sulfate 100 ml @ 25 mls/hr DAILY IV ; Start 04/26/20 at 09:00; Stop 04/29/20 at 08:59 Active Scripts Active Vancomycin Hcl 125 Mg Capsule 1 Cap PO QID 10 Days Reported Vitamin B-12 (Cyanocobalamin (Vitamin B-12)) 500 Mcg Tablet 500 Mcg PO DAILY Hydralazine Hcl 25 Mg Tablet 25 Mg PO TID Labetalol Hcl 200 Mg Tablet 200 Mg PO BID Levothyroxine Sodium 175 Mcg Tablet 175 Mcg PO DAILYAC Zofran (Ondansetron Hcl) 4 Mg Tablet 1 Tab PO Q4HRS PRN Vitamin C (Ascorbic Acid) 100 Mg Tablet 1 Tab PO DAILY 30 Days Flomax (Tamsulosin Hcl) 0.4 Mg Cap.er.24h 1 Cap PO DAILY Senna Laxative (Sennosides) 8.6 Mg Tablet 8.6 Mg PO DAILY Relistor (Methylnaltrexone [place]) 150 Mg Tablet 150 Mg PO DAILY Pantoprazole Sodium (Pantoprazole Sodium) 40 Mg Tablet.dr 40 Mg PO DAILYAC Multi Vitamin Daily (Multivitamin) 1 Each Tablet 1 Tab PO DAILY 30 Days Morphine Sulfate 30 Mg Tablet 2 Tab PO TID Linzess (Linaclotide) 145 Mcg Capsule 145 Mcg PO DAILY07 Lantus Solostar (Insulin Glargine,Hum.rec.anlog) 100 Unit/1 Ml Insuln.pen 16 Unit SQ QHS Hydromorphone Hcl 4 Mg Tablet 4 Mg PO PRN Q6HRS PRN DURAGESIC 50mcg/hr (Fentanyl) 1 Each Patch.td72 1 Patch TP Q3DAYS MDD 0.33 Patch(s) Bisacodyl 10 Mg Supp.rect 10 Mg RC PRN DAILY PRN Cefdinir 300 Mg Capsule 1 Cap PO BID Acidophilus (Lactobacillus Acidophilus) 1 Each Capsule 1 Cap PO BID Atorvastatin Calcium 20 Mg Tablet 1 Tab PO DAILY Foltx Tablet (B12/Levomefolate Calcium/B-6) 1 Each Tablet 1 Each PO AFTRNOON Finasteride 5 Mg Tablet 1 Tab PO DAILY ROS: Review of Systems Unable to obtain he is obtunded Physical Exam: Vital Signs: Vital Signs Date Time Temp Pulse Resp B/P (MAP) Pulse Ox O2 Delivery O2 Flow Rate FiO2 04/25/20 18:00 97.7 74 16 129/59 (82) 95 Nasal Cannula 2.0 97.7 Physcial Exam: GEN: He is obtunded HEENT: Normal cephalic, atraumatic, external auditory canals are patent EYES: No scleral icterus MUSCULOSKELETAL: Well developed , well nourished ENDOCRINE: No thyromegaly was palpated LYMPHATICS: No cervical chain or axillary nodes were noted HEMATOPOIETIC: No bruising NECK: Supple, no JVD, no thyromegaly was noted LUNGS: Slight bibasilar crackles HEART: Distant S1-S2 with a possible soft S3 ABDOMEN: Distended decreased bowel sounds EXTREMITIES: 1+ edema NEUROLOGIC: He is not talking much or waking up much at this point PSYCHIATRIC: Unable to assess SKIN: Pale and thin VASCULAR: Good capillary refill, neurovascular bundle appears to be intact Labs: Labs: Laboratory Tests Test 04/25/20 18:04 04/25/20 19:34 Glucose (Fingerstick) 451 mg/dL (70-99) Sodium Level 134 mmol/L (136-145) Potassium Level 4.5 mmol/L (3.5-5.1) Chloride Level 95 mmol/L (98-107) Carbon Dioxide Level 23 mmol/L (21-32) Anion Gap 16 (6-14) Blood Urea Nitrogen 58 mg/dL (8-26) Creatinine 4.9 mg/dL (0.7-1.3) Estimated GFR (Cockcroft-Gault) 11.5 Glucose Level 487 mg/dL (70-99) Calcium Level 8.4 mg/dL (8.5-10.1) Phosphorus Level 5.8 mg/dL (2.6-4.7) Magnesium Level 2.1 mg/dL (1.8-2.4) Laboratory Tests Test 04/25/20 18:04 04/25/20 19:34 Glucose (Fingerstick) 451 mg/dL (70-99) Sodium Level 134 mmol/L (136-145) Potassium Level 4.5 mmol/L (3.5-5.1) Chloride Level 95 mmol/L (98-107) Carbon Dioxide Level 23 mmol/L (21-32) Anion Gap 16 (6-14) Blood Urea Nitrogen 58 mg/dL (8-26) Creatinine 4.9 mg/dL (0.7-1.3) Estimated GFR (Cockcroft-Gault) 11.5 Glucose Level 487 mg/dL (70-99) Calcium Level 8.4 mg/dL (8.5-10.1) Phosphorus Level 5.8 mg/dL (2.6-4.7) Magnesium Level 2.1 mg/dL (1.8-2.4) Assessment/Plan Assessment/Plan Possible pneumonia possible COVID-19 Possible GI bleed DKA Hypoxia Recent femur fracture In a elderly male with above-noted comorbidities Plan IV antibiotics Rule out COVID-19 (he apparently had a negative Covid-19 test 4 days ago?) DKA protocol Consult pulmonary Consult nephrology Consult infectious disease Consult GI IV Protonix ICU monitoring Home meds if possible DVT prophylaxis Full code Prognosis extremely guarded Justicifation of Admission Dx: Justifications for Admission: Justification of Admission Dx: Yes DKA: DKA NETO CORTEZ III DO Apr 25, 2020 20:31
[2020-04-25] MEDS: INSULIN REGULAR VIAL 100 UNIT in IV NORMAL SALINE 100ML 100 ML IV PRN (20:42)
[2020-04-25] MEDS: POTASSIUM CHLORIDE 10MEQ 100 ML IV SCH ×2 (20:56→22:43)
[2020-04-26] VITALS (20 sets, daily range): BP systolic 93–121; BP diastolic 42–55
[2020-04-26 01:25] LABS: CALCIUM 8.4 mg/dL (8.5-10.1); GFR 11.3; MAGNESIUM 2.1 mg/dL (1.8-2.4); PHOSPHORUS 5.1 mg/dL (2.6-4.7)
[2020-04-26] MEDS: POTASSIUM CHLORIDE 10MEQ 100 ML IV SCH ×2 (02:12→03:19)
[2020-04-26] MEDS: INSULIN REGULAR VIAL 100 UNIT in IV NORMAL SALINE 100ML 100 ML IV PRN (03:19)
[2020-04-26] MEDS: IV DEXTROSE 5% - 0.9 % NACL 1,000 ML IV SCH ×2 (05:16→18:35)
[2020-04-26 05:36] LABS: CALCIUM 8.9 mg/dL (8.5-10.1); CREATININE 5.1 mg/dL (0.7-1.3); MAGNESIUM 2.1 mg/dL (1.8-2.4); PHOSPHORUS 4.5 mg/dL (2.6-4.7)
--- NOTE | 2020-04-26 06:18 | PDOC ---
Infectious Disease Note Vital Sign Vital Signs Vital Signs Date Time Temp Pulse Resp B/P (MAP) Pulse Ox O2 Delivery O2 Flow Rate FiO2 04/26/20 02:00 68 119/49 (72) 96 Nasal Cannula 2.0 04/25/20 18:00 97.7 16 97.7 Labs Lab Laboratory Tests Test 04/25/20 18:04 04/25/20 19:34 04/25/20 20:30 04/25/20 22:18 Glucose (Fingerstick) 451 mg/dL (70-99) 413 mg/dL (70-99) 359 mg/dL (70-99) Sodium Level 134 mmol/L (136-145) Potassium Level 4.5 mmol/L (3.5-5.1) Chloride Level 95 mmol/L (98-107) Carbon Dioxide Level 23 mmol/L (21-32) Anion Gap 16 (6-14) Blood Urea Nitrogen 58 mg/dL (8-26) Creatinine 4.9 mg/dL (0.7-1.3) Estimated GFR (Cockcroft-Gault) 11.5 Glucose Level 487 mg/dL (70-99) Calcium Level 8.4 mg/dL (8.5-10.1) Phosphorus Level 5.8 mg/dL (2.6-4.7) Magnesium Level 2.1 mg/dL (1.8-2.4) Test 04/25/20 23:26 04/26/20 00:46 04/26/20 01:00 04/26/20 01:52 Glucose (Fingerstick) 413 mg/dL (70-99) 379 mg/dL (70-99) 348 mg/dL (70-99) Sodium Level 135 mmol/L (136-145) Potassium Level 4.0 mmol/L (3.5-5.1) Chloride Level 98 mmol/L (98-107) Carbon Dioxide Level 26 mmol/L (21-32) Anion Gap 11 (6-14) Blood Urea Nitrogen 59 mg/dL (8-26) Creatinine 5.0 mg/dL (0.7-1.3) Estimated GFR (Cockcroft-Gault) 11.3 Glucose Level 408 mg/dL (70-99) Calcium Level 8.4 mg/dL (8.5-10.1) Phosphorus Level 5.1 mg/dL (2.6-4.7) Magnesium Level 2.1 mg/dL (1.8-2.4) Test 04/26/20 02:59 04/26/20 04:03 04/26/20 04:30 Glucose (Fingerstick) 280 mg/dL (70-99) 240 mg/dL (70-99) Sodium Level 136 mmol/L (136-145) Potassium Level 4.0 mmol/L (3.5-5.1) Chloride Level 99 mmol/L (98-107) Carbon Dioxide Level 28 mmol/L (21-32) Anion Gap 9 (6-14) Blood Urea Nitrogen 61 mg/dL (8-26) Creatinine 5.1 mg/dL (0.7-1.3) Estimated GFR (Cockcroft-Gault) 11.0 Glucose Level 276 mg/dL (70-99) Calcium Level 8.9 mg/dL (8.5-10.1) Phosphorus Level 4.5 mg/dL (2.6-4.7) Magnesium Level 2.1 mg/dL (1.8-2.4) Objective Assessment SOA - improved Hyperglycemia ? GI Bleed PCN allergyHives tolerated Cephalosporins Leukopenia - has been present in the past CKD on HD H/o C-diff H/o Left shoulder joint infection Grp B strep had been on chronic suppressive antibiotics - appears to off now and shoulder benign on exam Coronary artery disease. Abdominal wall hernia. H/o T12 compression fracture. A fib Plan Plan of Care CBC this am Clinically stable given h/o C-diff and AF with nml WBC and BP - hold abx F/u labs and cults D/w nursing Thank you # [id number] RANDEE GARRETT MD Apr 26, 2020 06:18
[2020-04-26] MEDS ORDERED: DEXTROSE 50% 25 GM / 50ML DISP.SYRIN. IV PRN (07:15)
[2020-04-26] MEDS: INSULIN LISPRO 300 UNITS/3 ML VIAL. SQ SCH ×3 (08:00→18:19)
--- NOTE | 2020-04-26 08:13 | PDOC ---
PROGRESS NOTES Chief Complaint Chief Complaint Shortness of air, improved. Hyperglycemia. ? gastrointestinal bleed. Leukopenia has been present in the past. ESRD on hemodialysis. History of Clostridium difficile. History of left shoulder infection with group B strep, had been on chronic suppressive antibiotics, appears to be off now and shoulder is benign. Coronary artery disease. Abdominal wall hernia. History of T12 compression fracture. Atrial fibrillation. History of Present Illness History of Present Illness Mr Tobar is a 79-yo M w/ PMHx DM2, Hypothyroidism, neurofibromatosis, ESRD on HD, history of a left shoulder infection with hardware in place, & history of C. difficile and CAD. He presented to [facility] on the with complaints of hypoxia and hyperglycemia. He was 80% on room air. WBC 2.7, glucose 593. [facility] and was placed on insulin drip. Hb 11.6, Platelets 157, BNP 4265 Currently, the patient is sitting upright in bed. He denies fevers or chills or sweats. He has no nausea or vomiting. Denies any gross blood that he has seen in his stool and has no gross shortness of air, currently on room air oxygen. Vitals Vitals Vital Signs Date Time Temp Pulse Resp B/P (MAP) Pulse Ox O2 Delivery O2 Flow Rate FiO2 04/26/20 06:00 66 115/47 (69) 97 Nasal Cannula 1.0 04/26/20 04:00 98.2 98.2 04/25/20 18:00 16 Physical Exam General: Alert, Cooperative Heart: Regular rate, Normal S1, Normal S2 Lungs: Clear, Other Abdomen: Normal bowel sounds Extremities: Other (Left shoulder deformity, left leg in immobilizer) Skin: No rashes, No breakdown Labs LABS Laboratory Tests Test 04/25/20 18:04 04/25/20 19:34 04/25/20 20:30 04/25/20 22:18 Glucose (Fingerstick) 451 mg/dL (70-99) 413 mg/dL (70-99) 359 mg/dL (70-99) Sodium Level 134 mmol/L (136-145) Potassium Level 4.5 mmol/L (3.5-5.1) Chloride Level 95 mmol/L (98-107) Carbon Dioxide Level 23 mmol/L (21-32) Anion Gap 16 (6-14) Blood Urea Nitrogen 58 mg/dL (8-26) Creatinine 4.9 mg/dL (0.7-1.3) Estimated GFR (Cockcroft-Gault) 11.5 Glucose Level 487 mg/dL (70-99) Calcium Level 8.4 mg/dL (8.5-10.1) Phosphorus Level 5.8 mg/dL (2.6-4.7) Magnesium Level 2.1 mg/dL (1.8-2.4) Test 04/25/20 23:26 04/26/20 00:46 04/26/20 01:00 04/26/20 01:52 Glucose (Fingerstick) 413 mg/dL (70-99) 379 mg/dL (70-99) 348 mg/dL (70-99) Sodium Level 135 mmol/L (136-145) Potassium Level 4.0 mmol/L (3.5-5.1) Chloride Level 98 mmol/L (98-107) Carbon Dioxide Level 26 mmol/L (21-32) Anion Gap 11 (6-14) Blood Urea Nitrogen 59 mg/dL (8-26) Creatinine 5.0 mg/dL (0.7-1.3) Estimated GFR (Cockcroft-Gault) 11.3 Glucose Level 408 mg/dL (70-99) Calcium Level 8.4 mg/dL (8.5-10.1) Phosphorus Level 5.1 mg/dL (2.6-4.7) Magnesium Level 2.1 mg/dL (1.8-2.4) Test 04/26/20 02:59 04/26/20 04:03 04/26/20 04:30 04/26/20 05:08 Glucose (Fingerstick) 280 mg/dL (70-99) 240 mg/dL (70-99) 210 mg/dL (70-99) Sodium Level 136 mmol/L (136-145) Potassium Level 4.0 mmol/L (3.5-5.1) Chloride Level 99 mmol/L (98-107) Carbon Dioxide Level 28 mmol/L (21-32) Anion Gap 9 (6-14) Blood Urea Nitrogen 61 mg/dL (8-26) Creatinine 5.1 mg/dL (0.7-1.3) Estimated GFR (Cockcroft-Gault) 11.0 Glucose Level 276 mg/dL (70-99) Calcium Level 8.9 mg/dL (8.5-10.1) Phosphorus Level 4.5 mg/dL (2.6-4.7) Magnesium Level 2.1 mg/dL (1.8-2.4) Test 04/26/20 06:22 04/26/20 07:44 Glucose (Fingerstick) 174 mg/dL (70-99) 130 mg/dL (70-99) Comment Review of Relevant I have reviewed the following items john (where applicable) has been applied. Labs Laboratory Tests Test 04/25/20 18:04 04/25/20 19:34 04/25/20 20:30 04/25/20 22:18 Glucose (Fingerstick) 451 mg/dL (70-99) 413 mg/dL (70-99) 359 mg/dL (70-99) Sodium Level 134 mmol/L (136-145) Potassium Level 4.5 mmol/L (3.5-5.1) Chloride Level 95 mmol/L (98-107) Carbon Dioxide Level 23 mmol/L (21-32) Anion Gap 16 (6-14) Blood Urea Nitrogen 58 mg/dL (8-26) Creatinine 4.9 mg/dL (0.7-1.3) Estimated GFR (Cockcroft-Gault) 11.5 Glucose Level 487 mg/dL (70-99) Calcium Level 8.4 mg/dL (8.5-10.1) Phosphorus Level 5.8 mg/dL (2.6-4.7) Magnesium Level 2.1 mg/dL (1.8-2.4) Test 04/25/20 23:26 04/26/20 00:46 04/26/20 01:00 04/26/20 01:52 Glucose (Fingerstick) 413 mg/dL (70-99) 379 mg/dL (70-99) 348 mg/dL (70-99) Sodium Level 135 mmol/L (136-145) Potassium Level 4.0 mmol/L (3.5-5.1) Chloride Level 98 mmol/L (98-107) Carbon Dioxide Level 26 mmol/L (21-32) Anion Gap 11 (6-14) Blood Urea Nitrogen 59 mg/dL (8-26) Creatinine 5.0 mg/dL (0.7-1.3) Estimated GFR (Cockcroft-Gault) 11.3 Glucose Level 408 mg/dL (70-99) Calcium Level 8.4 mg/dL (8.5-10.1) Phosphorus Level 5.1 mg/dL (2.6-4.7) Magnesium Level 2.1 mg/dL (1.8-2.4) Test 04/26/20 02:59 04/26/20 04:03 04/26/20 04:30 04/26/20 05:08 Glucose (Fingerstick) 280 mg/dL (70-99) 240 mg/dL (70-99) 210 mg/dL (70-99) Sodium Level 136 mmol/L (136-145) Potassium Level 4.0 mmol/L (3.5-5.1) Chloride Level 99 mmol/L (98-107) Carbon Dioxide Level 28 mmol/L (21-32) Anion Gap 9 (6-14) Blood Urea Nitrogen 61 mg/dL (8-26) Creatinine 5.1 mg/dL (0.7-1.3) Estimated GFR (Cockcroft-Gault) 11.0 Glucose Level 276 mg/dL (70-99) Calcium Level 8.9 mg/dL (8.5-10.1) Phosphorus Level 4.5 mg/dL (2.6-4.7) Magnesium Level 2.1 mg/dL (1.8-2.4) Test 04/26/20 06:22 04/26/20 07:44 Glucose (Fingerstick) 174 mg/dL (70-99) 130 mg/dL (70-99) Laboratory Tests Test 04/25/20 18:04 04/25/20 19:34 04/25/20 20:30 04/25/20 22:18 Glucose (Fingerstick) 451 mg/dL (70-99) 413 mg/dL (70-99) 359 mg/dL (70-99) Sodium Level 134 mmol/L (136-145) Potassium Level 4.5 mmol/L (3.5-5.1) Chloride Level 95 mmol/L (98-107) Carbon Dioxide Level 23 mmol/L (21-32) Anion Gap 16 (6-14) Blood Urea Nitrogen 58 mg/dL (8-26) Creatinine 4.9 mg/dL (0.7-1.3) Estimated GFR (Cockcroft-Gault) 11.5 Glucose Level 487 mg/dL (70-99) Calcium Level 8.4 mg/dL (8.5-10.1) Phosphorus Level 5.8 mg/dL (2.6-4.7) Magnesium Level 2.1 mg/dL (1.8-2.4) Test 04/25/20 23:26 04/26/20 00:46 04/26/20 01:00 04/26/20 01:52 Glucose (Fingerstick) 413 mg/dL (70-99) 379 mg/dL (70-99) 348 mg/dL (70-99) Sodium Level 135 mmol/L (136-145) Potassium Level 4.0 mmol/L (3.5-5.1) Chloride Level 98 mmol/L (98-107) Carbon Dioxide Level 26 mmol/L (21-32) Anion Gap 11 (6-14) Blood Urea Nitrogen 59 mg/dL (8-26) Creatinine 5.0 mg/dL (0.7-1.3) Estimated GFR (Cockcroft-Gault) 11.3 Glucose Level 408 mg/dL (70-99) Calcium Level 8.4 mg/dL (8.5-10.1) Phosphorus Level 5.1 mg/dL (2.6-4.7) Magnesium Level 2.1 mg/dL (1.8-2.4) Test 04/26/20 02:59 04/26/20 04:03 04/26/20 04:30 04/26/20 05:08 Glucose (Fingerstick) 280 mg/dL (70-99) 240 mg/dL (70-99) 210 mg/dL (70-99) Sodium Level 136 mmol/L (136-145) Potassium Level 4.0 mmol/L (3.5-5.1) Chloride Level 99 mmol/L (98-107) Carbon Dioxide Level 28 mmol/L (21-32) Anion Gap 9 (6-14) Blood Urea Nitrogen 61 mg/dL (8-26) Creatinine 5.1 mg/dL (0.7-1.3) Estimated GFR (Cockcroft-Gault) 11.0 Glucose Level 276 mg/dL (70-99) Calcium Level 8.9 mg/dL (8.5-10.1) Phosphorus Level 4.5 mg/dL (2.6-4.7) Magnesium Level 2.1 mg/dL (1.8-2.4) Test 04/26/20 06:22 04/26/20 07:44 Glucose (Fingerstick) 174 mg/dL (70-99) 130 mg/dL (70-99) Medications Current Medications Sodium Chloride 1,000 ml @ 75 mls/hr [id number] IV Last administered on 04/25/20at 20:42; Start 04/25/20 at 18:40 Sodium Chloride 1,000 ml @ 75 mls/hr [id number] IV ; Start 04/25/20 at 18:40 Dextrose/Sodium Chloride 1,000 ml @ 75 mls/hr [id number] IV ; Start 04/25/20 at 18:40 Insulin Human Regular 100 unit/ Sodium Chloride 101 ml @ 0 mls/hr CONT PRN PRN IV PER PROTOCOL Last administered on 04/26/20at 03:19; Start 04/25/20 at 18:45 Potassium Chloride/Water 100 ml @ 100 mls/hr PRN Q1HR PRN IV SEE COMMENTS; Start 04/25/20 at 18:45 Potassium Chloride/Water 100 ml @ 100 mls/hr PRN Q1HR PRN IV SEE COMMENTS; Start 04/25/20 at 18:45 Potassium Chloride/Water 100 ml @ 100 mls/hr PRN Q1HR PRN IV SEE COMMENTS; Start 04/25/20 at 18:45 Magnesium Sulfate 100 ml @ 25 mls/hr DAILY IV ; Start 04/26/20 at 09:00; Stop 04/29/20 at 08:59 Potassium Chloride/Water 100 ml @ 100 mls/hr Q1H IV Last administered on 04/25/20at 22:43; Start 04/25/20 at 21:00; Stop 04/25/20 at 22:59; Status DC Potassium Chloride/Water 100 ml @ 100 mls/hr Q1H IV Last administered on 04/26/20at 03:19; Start 04/26/20 at 01:45; Stop 04/26/20 at 03:44; Status DC Dextrose/Sodium Chloride 1,000 ml @ 75 mls/hr [id number] IV Last administered on 04/26/20at 05:16; Start 04/26/20 at 05:15 Insulin Glargine (Lantus Syringe) 5 unit QHS SQ ; Start 04/26/20 at 21:00 Insulin Human Lispro (HumaLOG) 0-7 UNITS TIDWMEALS SQ ; Start 04/26/20 at 08:00 Dextrose (Dextrose 50%-Water Syringe) 12.5 gm PRN Q15MIN PRN IV SEE COMMENTS; Start 04/26/20 at 07:15 Active Scripts Active Vancomycin Hcl 125 Mg Capsule 1 Cap PO QID 10 Days Reported Vitamin B-12 (Cyanocobalamin (Vitamin B-12)) 500 Mcg Tablet 500 Mcg PO DAILY Hydralazine Hcl 25 Mg Tablet 25 Mg PO TID Labetalol Hcl 200 Mg Tablet 200 Mg PO BID Levothyroxine Sodium 175 Mcg Tablet 175 Mcg PO DAILYAC Zofran (Ondansetron Hcl) 4 Mg Tablet 1 Tab PO Q4HRS PRN Vitamin C (Ascorbic Acid) 100 Mg Tablet 1 Tab PO DAILY 30 Days Flomax (Tamsulosin Hcl) 0.4 Mg Cap.er.24h 1 Cap PO DAILY Senna Laxative (Sennosides) 8.6 Mg Tablet 8.6 Mg PO DAILY Relistor (Methylnaltrexone [place]) 150 Mg Tablet 150 Mg PO DAILY Pantoprazole Sodium (Pantoprazole Sodium) 40 Mg Tablet.dr 40 Mg PO DAILYAC Multi Vitamin Daily (Multivitamin) 1 Each Tablet 1 Tab PO DAILY 30 Days Morphine Sulfate 30 Mg Tablet 2 Tab PO TID Linzess (Linaclotide) 145 Mcg Capsule 145 Mcg PO DAILY07 Lantus Solostar (Insulin Glargine,Hum.rec.anlog) 100 Unit/1 Ml Insuln.pen 16 Unit SQ QHS Hydromorphone Hcl 4 Mg Tablet 4 Mg PO PRN Q6HRS PRN DURAGESIC 50mcg/hr (Fentanyl) 1 Each Patch.td72 1 Patch TP Q3DAYS MDD 0.33 Patch(s) Bisacodyl 10 Mg Supp.rect 10 Mg RC PRN DAILY PRN Cefdinir 300 Mg Capsule 1 Cap PO BID Acidophilus (Lactobacillus Acidophilus) 1 Each Capsule 1 Cap PO BID Atorvastatin Calcium 20 Mg Tablet 1 Tab PO DAILY Foltx Tablet (B12/Levomefolate Calcium/B-6) 1 Each Tablet 1 Each PO AFTRNOON Finasteride 5 Mg Tablet 1 Tab PO DAILY Vitals/I & O Vital Sign - Last 24 Hours 04/25/20 04/25/20 04/25/20 04/25/20 18:00 19:00 20:00 20:00 Temp 97.7 97.7 Pulse 74 74 70 Resp 16 B/P (MAP) 129/59 (82) 127/51 (76) 103/47 (65) Pulse Ox 95 96 95 O2 Delivery Nasal Cannula Nasal Cannula Nasal Cannula Nasal Cannula O2 Flow Rate 2.0 2.0 1.0 2.0 04/25/20 04/25/20 04/25/20 04/25/20 21:00 22:00 23:00 23:59 Pulse 74 74 72 70 B/P (MAP) 137/55 (82) 127/60 (82) 121/50 (73) 118/52 (74) Pulse Ox 96 95 96 96 O2 Delivery Nasal Cannula Nasal Cannula Nasal Cannula Nasal Cannula O2 Flow Rate 2.0 2.0 2.0 2.0 04/26/20 04/26/20 04/26/20 04/26/20 00:00 01:00 02:00 03:00 Pulse 72 68 68 B/P (MAP) 121/49 (73) 119/49 (72) 109/46 (67) Pulse Ox 96 96 96 O2 Delivery Nasal Cannula Nasal Cannula Nasal Cannula Nasal Cannula O2 Flow Rate 1.0 2.0 2.0 1.0 04/26/20 04/26/20 04/26/20 04/26/20 04:00 04:00 05:00 06:00 Temp 98.2 98.2 Pulse 66 66 66 B/P (MAP) 119/52 (74) 108/47 (67) 115/47 (69) Pulse Ox 98 97 97 O2 Delivery Nasal Cannula Nasal Cannula Nasal Cannula Nasal Cannula O2 Flow Rate 1.0 1.0 1.0 1.0 Intake and Output 04/25/20 04/25/20 04/26/20 15:00 23:00 07:00 Intake Total 750.3 ml Output Total 0 ml Balance 750.3 ml Justicifation of Admission Dx: Justifications for Admission: Justification of Admission Dx: Yes DKA: DAE PARR MD Apr 26, 2020 08:13
[2020-04-26] MEDS ORDERED: MIDO5TAB4 PO (08:30)
[2020-04-26] MEDS ORDERED: INSU100V31 SQ (08:30)
[2020-04-26] MEDS ORDERED: PROM25SU33 RC (08:30)
[2020-04-26] MEDS ORDERED: SEVE800T9 PO (08:32)
[2020-04-26] MEDS ORDERED: MAGNESIUM SULFATE 4GM 100 ML IV SCH (09:00)
[2020-04-26 09:04] LABS: BASO % 1 % (0-3); EOS # 0.1 x10^3/uL (0.0-0.7); EOS % 2 % (0-3); HEMATOCRIT 31.7 % (39.0-53.0); HEMOGLOBIN 10.6 g/dL (13.0-17.5); LYMPH # 0.5 x10^3/uL (1.0-4.8); LYMPH % 23 % (24-48); MEAN CORPUSCULAR HEMOGLOBIN 32 pg (25-35); MEAN CORPUSCULAR HGB CONC 33 g/dL (31-37); MEAN CORPUSCULAR VOLUME 97 fL (79-100); MONO # 0.5 x10^3/uL (0.0-1.1); MONO % 22 % (0-9); NEUT # 1.3 x10^3/uL (1.8-7.7); NEUT % 53 % (31-73); PLATELET COUNT 142 x10^3/uL (140-400); RED BLOOD COUNT 3.27 x10^6/uL (4.30-5.70); RED CELL DISTRIBUTION WIDTH 16.7 % (11.5-14.5); WHITE BLOOD COUNT 2.4 x10^3/uL (4.0-11.0)
--- NOTE | 2020-04-26 09:37 | CONS ---
DATE OF CONSULTATION: 04/26/2020 INFECTIOUS DISEASE CONSULTATION NOTE PATIENT'S ROOM: ICU 13. REQUESTING PHYSICIAN: Dr. Enriquez. REASON FOR CONSULTATION: Possible COVID. HISTORY OF PRESENT ILLNESS: The patient is a 79-year-old gentleman with a known history of a left shoulder infection with hardware in place, also has a history of neurofibromatosis, chronic kidney disease, on hemodialysis and history of C. diff. He presented to [facility] on the with complaints of hypoxia and hyperglycemia. He was 80% on room air. They did give him some morphine this morning. On arrival, he had a white count of 2.7. His glucose was elevated at 593. He was transferred to [facility] and has been placed on insulin drip. Urinalysis was obtained, not grossly concerning for UTI. He has not received any antibiotics and there is a concern that he has a GI bleed. Currently, the patient is sitting upright in bed. He denies fevers or chills or sweats. He has no nausea or vomiting. Denies any gross blood that he has seen in his stool and has no gross shortness of air, currently on room air oxygen. PAST MEDICAL HISTORY: Positive for diabetes, hypothyroidism, neurofibromatosis, chronic kidney disease, on hemodialysis, left shoulder prosthetic dislocation, history of group B strep left shoulder, had been on chronic antibiotics, chronic pain, Malik syndrome, coronary artery disease, history of C. diff, thoracic aneurysm repair. SOCIAL HISTORY: No alcohol or tobacco. He is a group home resident. ALLERGIES: LISTED PENICILLIN, but he has tolerated cephalosporins. REVIEW OF SYSTEMS: Otherwise negative except for as mentioned above. CURRENT MEDICATIONS: Include insulin, magnesium and potassium; however, from [facility], he is on atorvastatin, finasteride, Lantus, levothyroxine, Midrin, morphine, NovoLog insulin, pantoprazole, promethazine, Renvela, ____. He is not on any antibiotics according to the records from [facility]. PHYSICAL EXAMINATION: VITAL SIGNS: He is afebrile, temperature was 97.7, pulse 68. He is on 2 liters nasal cannula, satting 96%, blood pressure 119/49. CONSTITUTIONAL: He is sitting upright in bed. He is cooperative. He is in no acute distress. HEENT: He has normal conjunctivae. Oral cavity, pharynx was clear. NECK: Supple, no JVD. LUNGS: Decreased in the bases. HEART: S1, S2. ABDOMEN: Soft, no guarding or rebound. EXTREMITIES: Without clubbing, cyanosis. He has trace edema. He has a brace to his left lower extremity. NEUROLOGIC: He is alert. He answers questions. He is somewhat tired. IV: He has a right hemodialysis catheter without signs of any complications. MUSCULOSKELETAL: He has multiple joint deformities, left shoulder is without signs of inflammation or erythema. LABORATORY VALUES: Creatinine of 5.1, glucose is 276. White count was 2.7 on arrival, hemoglobin was 11.6, platelets 157, neutrophils were 71. His proBNP was 4265. No radiological studies. IMPRESSION: 1. Shortness of air, improved. 2. Hyperglycemia. 3. Questionable gastrointestinal bleed. 4. PENICILLIN ALLERGY. 5. Leukopenia has been present in the past. 6. Chronic kidney disease, on hemodialysis. 7. History of Clostridium difficile. 8. History of left shoulder infection with group B strep, had been on chronic suppressive antibiotics, appears to be off now and shoulder is benign. 9. Coronary artery disease. 10. Abdominal wall hernia. 11. History of T12 compression fracture. 12. Atrial fibrillation. RECOMMENDATIONS: Obtain a CBC this morning. Clinically stable given his history of C. diff. He is afebrile with a normal white blood cell and normal blood pressure. We will hold off on antibiotics. Follow up labs and cultures. This was discussed with nursing. Thank you for the patient's care. If you have any questions, please do not hesitate to contact me. RANDEE GARRETT MD DR: LANDON/chastity JOB#: [id number] / [id number]
--- NOTE | 2020-04-26 12:06 | PDOC2 ---
GI CONSULT Reason For Consult: "Hematemesis" HPI: HPI: 79 y/o male known to us from prior encounters. Presented to [facility] ER yesterday from [place] after hyperglycemia noted at the facility. Had had some emesis prior to ER; nature unclear though patient says "a little" and non-bloody nor black. No emesis mentioned on ER notes. Denies pain, nausea or vomiting currently. In ER, noted glucose of 500+ and some ketonuria and metabolic acidosis and has been being treated for DKA. Hemoglobin 11 x 2 in ER, 10.6 here after hydration. H/o severe esophagitis on EGD last summer, not apparently on PPI. Also had DU on that exam with biopsies negative for H.pylori. No GB, liver or pancreatic history. No major tobacco or alcohol use currently. H/o chronic constipation on chronic narcotics for pain. Colonoscopy and EGD in 2010 were basically normal. PMH: PMH: CAD, HTN, DM, hypothyroid, chronic pain, neurofibromatosis, BPH, depression, CKD, infected left shoulder. 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 FH: Family History: No pertinent hx Social History: ALCOHOL: none Drugs: None ROS: GEN: Denies fevers, chills, sweats HEENT: Denies blurred vision, sore throat CV: Denies chest pain RESP: Denies shortness of air, cough GI: Per HPI : Denies hematuria, dysuria ENDO: Denies weight changes NEURO: Denies confusion, dizziness MSK: Denies weakness, joint pain/swelling SKIN: Denies jaundice, pruritus Vitals: Vitals: Vital Signs Date Time Temp Pulse Resp B/P (MAP) Pulse Ox O2 Delivery O2 Flow Rate FiO2 04/26/20 06:00 66 115/47 (69) 97 Nasal Cannula 1.0 04/26/20 04:00 98.2 98.2 04/25/20 18:00 16 Labs: Labs: Laboratory Tests Test 04/25/20 18:04 04/25/20 19:34 04/25/20 20:30 04/25/20 22:18 Glucose (Fingerstick) 451 mg/dL (70-99) 413 mg/dL (70-99) 359 mg/dL (70-99) Sodium Level 134 mmol/L (136-145) Potassium Level 4.5 mmol/L (3.5-5.1) Chloride Level 95 mmol/L (98-107) Carbon Dioxide Level 23 mmol/L (21-32) Anion Gap 16 (6-14) Blood Urea Nitrogen 58 mg/dL (8-26) Creatinine 4.9 mg/dL (0.7-1.3) Estimated GFR (Cockcroft-Gault) 11.5 Glucose Level 487 mg/dL (70-99) Calcium Level 8.4 mg/dL (8.5-10.1) Phosphorus Level 5.8 mg/dL (2.6-4.7) Magnesium Level 2.1 mg/dL (1.8-2.4) Test 04/25/20 23:26 04/26/20 00:46 04/26/20 01:00 04/26/20 01:52 Glucose (Fingerstick) 413 mg/dL (70-99) 379 mg/dL (70-99) 348 mg/dL (70-99) Sodium Level 135 mmol/L (136-145) Potassium Level 4.0 mmol/L (3.5-5.1) Chloride Level 98 mmol/L (98-107) Carbon Dioxide Level 26 mmol/L (21-32) Anion Gap 11 (6-14) Blood Urea Nitrogen 59 mg/dL (8-26) Creatinine 5.0 mg/dL (0.7-1.3) Estimated GFR (Cockcroft-Gault) 11.3 Glucose Level 408 mg/dL (70-99) Calcium Level 8.4 mg/dL (8.5-10.1) Phosphorus Level 5.1 mg/dL (2.6-4.7) Magnesium Level 2.1 mg/dL (1.8-2.4) Test 04/26/20 02:59 04/26/20 04:03 04/26/20 04:30 04/26/20 05:08 Glucose (Fingerstick) 280 mg/dL (70-99) 240 mg/dL (70-99) 210 mg/dL (70-99) Sodium Level 136 mmol/L (136-145) Potassium Level 4.0 mmol/L (3.5-5.1) Chloride Level 99 mmol/L (98-107) Carbon Dioxide Level 28 mmol/L (21-32) Anion Gap 9 (6-14) Blood Urea Nitrogen 61 mg/dL (8-26) Creatinine 5.1 mg/dL (0.7-1.3) Estimated GFR (Cockcroft-Gault) 11.0 Glucose Level 276 mg/dL (70-99) Calcium Level 8.9 mg/dL (8.5-10.1) Phosphorus Level 4.5 mg/dL (2.6-4.7) Magnesium Level 2.1 mg/dL (1.8-2.4) Test 04/26/20 06:22 04/26/20 07:44 04/26/20 08:00 Glucose (Fingerstick) 174 mg/dL (70-99) 130 mg/dL (70-99) White Blood Count 2.4 x10^3/uL (4.0-11.0) Red Blood Count 3.27 x10^6/uL (4.30-5.70) Hemoglobin 10.6 g/dL (13.0-17.5) Hematocrit 31.7 % (39.0-53.0) Mean Corpuscular Volume 97 fL (79-100) Mean Corpuscular Hemoglobin 32 pg (25-35) Mean Corpuscular Hemoglobin Concent 33 g/dL (31-37) Red Cell Distribution Width 16.7 % (11.5-14.5) Platelet Count 142 x10^3/uL (140-400) Neutrophils (%) (Auto) 53 % (31-73) Lymphocytes (%) (Auto) 23 % (24-48) Monocytes (%) (Auto) 22 % (0-9) Eosinophils (%) (Auto) 2 % (0-3) Basophils (%) (Auto) 1 % (0-3) Neutrophils # (Auto) 1.3 x10^3/uL (1.8-7.7) Lymphocytes # (Auto) 0.5 x10^3/uL (1.0-4.8) Monocytes # (Auto) 0.5 x10^3/uL (0.0-1.1) Eosinophils # (Auto) 0.1 x10^3/uL (0.0-0.7) Basophils # (Auto) 0.0 x10^3/uL (0.0-0.2) Allergies: Coded Allergies: Penicillins (Verified Allergy, Intermediate, 09/21/19) Tolerates cephalosporins tapentadol (Verified Allergy, Intermediate, 06/14/19) Iodinated Contrast Media (Verified Adverse Reaction, Intermediate, 09/10/19) Medications: Current Medications Medications (Trade) Dose Ordered Sig/Lauren Route PRN Reason Start Time Stop Time Status Last Admin Dose Admin Sodium Chloride 1,000 ml @ 75 mls/hr [id number] IV 04/25/20 18:40 04/26/20 08:41 DC 04/25/20 20:42 Insulin Human Regular 100 unit/ Sodium Chloride 101 ml @ 0 mls/hr CONT PRN PRN IV PER PROTOCOL 04/25/20 18:45 04/26/20 08:41 DC 04/26/20 03:19 Potassium Chloride/Water 100 ml @ 100 mls/hr Q1H IV 04/25/20 21:00 04/25/20 22:59 DC 04/25/20 22:43 Potassium Chloride/Water 100 ml @ 100 mls/hr Q1H IV 04/26/20 01:45 04/26/20 03:44 DC 04/26/20 03:19 Dextrose/Sodium Chloride 1,000 ml @ 75 mls/hr [id number] IV 04/26/20 05:15 04/26/20 05:16 PE: GEN: NAD HEENT: Atraumatic, PERRLA LUNGS: CTAB HEART: RRR, no murmurs ABD: NABS, S/ND/NT, no masses EXTREMITY: No edema SKIN: No rashes, no jaundice NEURO/PSYCH: A & O 3 A/P: A/P: IMP: N and V likely due to the hyperglycemia alone; should improve with treatment of diabetes. GERD; pretty bad at last EGD. H/o DU, Hp negative--NSAID then? CRC UTD. Anemia, suspect some chronic and ACD. REC: PPI, iv until eating then po. Should take chronically. Observe otherwise. MOOKIE DE LA CRUZ MD Apr 26, 2020 12:06
[2020-04-26] MEDS ORDERED: PROMETHAZINE 25 MG SUPP.RECT. RC PRN (12:30)
[2020-04-26] MEDS ORDERED: MIDODRINE 5 MG TABLET PO PRN (12:30)
[2020-04-26] MEDS: SEVELAMER CARBONATE 800 MG TABLET. PO SCH ×2 (12:30→17:00)
[2020-04-26] MEDS ORDERED: ONDANSETRON ODT 4 MG TAB.RAPDIS. PO PRN (12:45)
[2020-04-26] MEDS: TAMSULOSIN 0.4 MG CAP.ER.24H. PO SCH (13:00)
[2020-04-26] MEDS: FINASTERIDE 5 MG TABLET. PO SCH (13:00)
[2020-04-26 13:14] LABS: % ATYL 2 % (0-0); % BANDS 29 % (0-9); % BASOS 1 % (0-3); % EOS 3 % (0-5); % LYMPHS 33 % (24-48); % METAS 2 % (0-0); % MONOS 11 % (0-10); % MYELOS 2 % (0-0); % SEGS 17 % (35-66)
[2020-04-26 13:15] LABS: ANISOCYTOSIS SLIGHT; PLT ESTIMATE ADEQUATE (ADEQUATE)
--- NOTE | 2020-04-26 13:20 | CONS ---
DATE OF CONSULTATION: 04/26/2020 I was asked to see this 79-year-old gentleman for possible COVID-19. HISTORY OF PRESENT ILLNESS: He does have history of left shoulder infection with hardware in place, history of neurofibromatosis, chronic kidney disease, on hemodialysis and history of C. diff. He was admitted to [facility] with complaint of hypoxemia. He also was in DKA. He was transferred to [facility] for further evaluation. Apparently, he did have a recent COVID-19, which was negative. Details are not known. He is on 1 liter of oxygen. He has shortness of breath. He has occasional cough. Denies pain. PAST MEDICAL HISTORY: End-stage renal disease, on hemodialysis; coronary artery disease, peptic ulcer disease, diabetes mellitus, hypertension, and hyperlipidemia. ALLERGIES: PENICILLIN, TAPENTADOL, AND IODINE. MEDICATIONS: Currently, he is on multivitamin, levothyroxine, Lipitor, insulin, Protonix, insulin. SOCIAL HISTORY: He does not smoke. FAMILY HISTORY: Hypertension. REVIEW OF SYSTEMS: Mentioned as above, other systems otherwise negative. PHYSICAL EXAMINATION: GENERAL: This is a chronically ill-appearing gentleman. VITAL SIGNS: His O2 saturation on 1 liter of oxygen is 96%, respiratory rate 18, heart rate 66, blood pressure 115/47, temperature 98.2. HEENT: Normocephalic, atraumatic. He is not in distress. NECK: Short. CARDIOVASCULAR: Regular rate and rhythm. CHEST: Inspection is normal. LUNGS: There are bibasilar crackles. ABDOMEN: Soft. EXTREMITIES: There is no cyanosis. LABORATORY DATA: I reviewed the following lab data: WBC 2.4, hemoglobin 10.6, platelets 142. Sodium 136, potassium 4, chloride 99, CO2 of 28, BUN 61, creatinine 5.1. His chest x-ray reportedly showed bibasilar infiltrate. IMPRESSION: 1. Acute hypoxemic respiratory failure. 2. Abnormal chest x-ray. 3. Status post diabetic ketoacidosis. 4. Leukopenia. 5. End-stage renal disease, on hemodialysis. 6. History of Clostridium difficile colitis. 7. History of left shoulder infection with group B strep. 8. Coronary artery disease. 9. History of T12 compression fracture. PLAN AND RECOMMENDATIONS: 1. Titrate FiO2 to keep O2 saturation 92%. 2. I will repeat his x-ray. 3. Follow up COVID-19 testing. 4. ID is consulted. They are monitoring him off antibiotics. 5. Protonix for stress ulcer prophylaxis. 6. Hemodialysis per Nephrology. 7. The findings and recommendations were discussed with RN and RT. Thank you very much for allowing me to participate in care of this very nice gentleman. MARY MARROQUIN M.D. DR: JUANCHO/chastity JOB#: [id number] / [id number]
[2020-04-26] MEDS: PANTOPRAZOLE IV PUSH 40 MG VIAL. IVP SCH (13:50)
--- NOTE | 2020-04-26 13:52 | RAD ---
EXAM: CHEST 1 VIEW History: Follow-up infiltrates COMPARISON: 11/22/2019 TECHNIQUE: Single portable radiograph of the chest FINDINGS: Low lung volumes and technique accentuates heart size and pulmonary vascularity. Right-sided dialysis catheter are unchanged. Mild prominent bilateral interstitial lung markings. Mild bibasilar lung airspace opacities.. Mild prominent bilateral interstitial markings likely mild congestive changes IMPRESSION: Mild congestive changes with mild bibasilar lung airspace opacities likely atelectasis or infiltrates mildly improved since prior exam. Electronically signed by: Isaak Harmon MD (04/26/2020 1:49 PM) [id number]
[2020-04-26] MEDS: PANTOPRAZOLE 40 MG TABLET.DR. PO SCH (16:30)
[2020-04-26] MEDS: HYDROmorphone 2 MG TABLET PO PRN (18:11)
--- NOTE | 2020-04-26 18:32 | NUR ---
Per Dr. Driscoll, patient appropriate to transfer to [facility] pending Negative COVID test.
[2020-04-26] MEDS: IV NORMAL SALINE 1000ML BAG 1,000 ML IV SCH (19:31)
[2020-04-26] MEDS: ATORVASTATIN CALCIUM 20 MG TABLET PO SCH (20:40)
[2020-04-26] MEDS: INSULIN GLARGINE SYRINGE. SQ SCH (20:51)
[2020-04-26] MEDS ORDERED: INSULIN GLARGINE SYRINGE. SQ SCH (21:00)
[2020-04-27] MEDS: HYDROmorphone 2 MG TABLET PO PRN ×2 (02:43→22:26)
[2020-04-27 03:11] VITALS: BP 114/50
[2020-04-27] MEDS: LEVOTHYROXINE 175 MCG TABLET PO SCH (06:00)
[2020-04-27 07:00] VITALS: BP 132/57
[2020-04-27] MEDS: PANTOPRAZOLE 40 MG TABLET.DR. PO SCH (07:30)
[2020-04-27 07:35] LABS: BASO % 1 % (0-3); EOS # 0.1 x10^3/uL (0.0-0.7); EOS % 3 % (0-3); HEMATOCRIT 30.6 % (39.0-53.0); HEMOGLOBIN 10.2 g/dL (13.0-17.5); LYMPH # 0.6 x10^3/uL (1.0-4.8); LYMPH % 21 % (24-48); MEAN CORPUSCULAR HEMOGLOBIN 32 pg (25-35); MEAN CORPUSCULAR HGB CONC 33 g/dL (31-37); MEAN CORPUSCULAR VOLUME 97 fL (79-100); MONO # 0.6 x10^3/uL (0.0-1.1); MONO % 19 % (0-9); NEUT # 1.7 x10^3/uL (1.8-7.7); NEUT % 57 % (31-73); PLATELET COUNT 139 x10^3/uL (140-400); RED BLOOD COUNT 3.15 x10^6/uL (4.30-5.70); RED CELL DISTRIBUTION WIDTH 16.9 % (11.5-14.5)
[2020-04-27] MEDS: TAMSULOSIN 0.4 MG CAP.ER.24H. PO SCH (08:54)
[2020-04-27] MEDS: MULTIVITAMIN with MINERAL TABLET. PO SCH (08:54)
[2020-04-27] MEDS: FINASTERIDE 5 MG TABLET. PO SCH (08:54)
[2020-04-27] MEDS: SEVELAMER CARBONATE 800 MG TABLET. PO SCH ×3 (08:54→17:17)
[2020-04-27] MEDS: INSULIN LISPRO 300 UNITS/3 ML VIAL. SQ SCH ×4 (08:55→17:00)
[2020-04-27] MEDS: IV NORMAL SALINE 1000ML BAG 1,000 ML IV SCH ×2 (08:55→22:14)
[2020-04-27] MEDS: PANTOPRAZOLE IV PUSH 40 MG VIAL. IVP SCH (08:56)
[2020-04-27 10:55] VITALS: BP 113/40
--- NOTE | 2020-04-27 12:15 | PDOC ---
G I PROGRESS NOTE Subjective Asleep. Did not awaken. Objective No reports of any GI issues. Others' notes reviewed. Physical Exam No PE. Review of Relevant I have reviewed the following items john (where applicable) has been applied. Labs Laboratory Tests Test 04/25/20 18:04 04/25/20 19:34 04/25/20 20:30 04/25/20 22:18 Glucose (Fingerstick) 451 mg/dL (70-99) 413 mg/dL (70-99) 359 mg/dL (70-99) Sodium Level 134 mmol/L (136-145) Potassium Level 4.5 mmol/L (3.5-5.1) Chloride Level 95 mmol/L (98-107) Carbon Dioxide Level 23 mmol/L (21-32) Anion Gap 16 (6-14) Blood Urea Nitrogen 58 mg/dL (8-26) Creatinine 4.9 mg/dL (0.7-1.3) Estimated GFR (Cockcroft-Gault) 11.5 Glucose Level 487 mg/dL (70-99) Calcium Level 8.4 mg/dL (8.5-10.1) Phosphorus Level 5.8 mg/dL (2.6-4.7) Magnesium Level 2.1 mg/dL (1.8-2.4) Test 04/25/20 23:26 04/26/20 00:46 04/26/20 01:00 04/26/20 01:52 Glucose (Fingerstick) 413 mg/dL (70-99) 379 mg/dL (70-99) 348 mg/dL (70-99) Sodium Level 135 mmol/L (136-145) Potassium Level 4.0 mmol/L (3.5-5.1) Chloride Level 98 mmol/L (98-107) Carbon Dioxide Level 26 mmol/L (21-32) Anion Gap 11 (6-14) Blood Urea Nitrogen 59 mg/dL (8-26) Creatinine 5.0 mg/dL (0.7-1.3) Estimated GFR (Cockcroft-Gault) 11.3 Glucose Level 408 mg/dL (70-99) Calcium Level 8.4 mg/dL (8.5-10.1) Phosphorus Level 5.1 mg/dL (2.6-4.7) Magnesium Level 2.1 mg/dL (1.8-2.4) Test 04/26/20 02:59 04/26/20 04:03 04/26/20 04:30 04/26/20 05:08 Glucose (Fingerstick) 280 mg/dL (70-99) 240 mg/dL (70-99) 210 mg/dL (70-99) Sodium Level 136 mmol/L (136-145) Potassium Level 4.0 mmol/L (3.5-5.1) Chloride Level 99 mmol/L (98-107) Carbon Dioxide Level 28 mmol/L (21-32) Anion Gap 9 (6-14) Blood Urea Nitrogen 61 mg/dL (8-26) Creatinine 5.1 mg/dL (0.7-1.3) Estimated GFR (Cockcroft-Gault) 11.0 Glucose Level 276 mg/dL (70-99) Calcium Level 8.9 mg/dL (8.5-10.1) Phosphorus Level 4.5 mg/dL (2.6-4.7) Magnesium Level 2.1 mg/dL (1.8-2.4) Test 04/26/20 06:22 04/26/20 07:44 04/26/20 08:00 04/26/20 13:55 Glucose (Fingerstick) 174 mg/dL (70-99) 130 mg/dL (70-99) 151 mg/dL (70-99) White Blood Count 2.4 x10^3/uL (4.0-11.0) Red Blood Count 3.27 x10^6/uL (4.30-5.70) Hemoglobin 10.6 g/dL (13.0-17.5) Hematocrit 31.7 % (39.0-53.0) Mean Corpuscular Volume 97 fL (79-100) Mean Corpuscular Hemoglobin 32 pg (25-35) Mean Corpuscular Hemoglobin Concent 33 g/dL (31-37) Red Cell Distribution Width 16.7 % (11.5-14.5) Platelet Count 142 x10^3/uL (140-400) Neutrophils (%) (Auto) 53 % (31-73) Lymphocytes (%) (Auto) 23 % (24-48) Monocytes (%) (Auto) 22 % (0-9) Eosinophils (%) (Auto) 2 % (0-3) Basophils (%) (Auto) 1 % (0-3) Neutrophils # (Auto) 1.3 x10^3/uL (1.8-7.7) Lymphocytes # (Auto) 0.5 x10^3/uL (1.0-4.8) Monocytes # (Auto) 0.5 x10^3/uL (0.0-1.1) Eosinophils # (Auto) 0.1 x10^3/uL (0.0-0.7) Basophils # (Auto) 0.0 x10^3/uL (0.0-0.2) Segmented Neutrophils % 17 % (35-66) Band Neutrophils % 29 % (0-9) Lymphocytes % 33 % (24-48) Atypical Lymphocytes % (Manual) 2 % (0-0) Monocytes % 11 % (0-10) Eosinophils % 3 % (0-5) Basophils % 1 % (0-3) Metamyelocytes % 2 % (0-0) Myelocytes % 2 % (0-0) Platelet Estimate Adequate (ADEQUATE) Anisocytosis Slight Test 04/26/20 18:15 04/26/20 20:44 04/27/20 07:15 04/27/20 07:25 Glucose (Fingerstick) 298 mg/dL (70-99) 251 mg/dL (70-99) 213 mg/dL (70-99) White Blood Count 3.0 x10^3/uL (4.0-11.0) Red Blood Count 3.15 x10^6/uL (4.30-5.70) Hemoglobin 10.2 g/dL (13.0-17.5) Hematocrit 30.6 % (39.0-53.0) Mean Corpuscular Volume 97 fL (79-100) Mean Corpuscular Hemoglobin 32 pg (25-35) Mean Corpuscular Hemoglobin Concent 33 g/dL (31-37) Red Cell Distribution Width 16.9 % (11.5-14.5) Platelet Count 139 x10^3/uL (140-400) Neutrophils (%) (Auto) 57 % (31-73) Lymphocytes (%) (Auto) 21 % (24-48) Monocytes (%) (Auto) 19 % (0-9) Eosinophils (%) (Auto) 3 % (0-3) Basophils (%) (Auto) 1 % (0-3) Neutrophils # (Auto) 1.7 x10^3/uL (1.8-7.7) Lymphocytes # (Auto) 0.6 x10^3/uL (1.0-4.8) Monocytes # (Auto) 0.6 x10^3/uL (0.0-1.1) Eosinophils # (Auto) 0.1 x10^3/uL (0.0-0.7) Basophils # (Auto) 0.0 x10^3/uL (0.0-0.2) Test 04/27/20 11:25 Glucose (Fingerstick) 215 mg/dL (70-99) Laboratory Tests Test 04/26/20 13:55 04/26/20 18:15 04/26/20 20:44 04/27/20 07:15 Glucose (Fingerstick) 151 mg/dL (70-99) 298 mg/dL (70-99) 251 mg/dL (70-99) White Blood Count 3.0 x10^3/uL (4.0-11.0) Red Blood Count 3.15 x10^6/uL (4.30-5.70) Hemoglobin 10.2 g/dL (13.0-17.5) Hematocrit 30.6 % (39.0-53.0) Mean Corpuscular Volume 97 fL (79-100) Mean Corpuscular Hemoglobin 32 pg (25-35) Mean Corpuscular Hemoglobin Concent 33 g/dL (31-37) Red Cell Distribution Width 16.9 % (11.5-14.5) Platelet Count 139 x10^3/uL (140-400) Neutrophils (%) (Auto) 57 % (31-73) Lymphocytes (%) (Auto) 21 % (24-48) Monocytes (%) (Auto) 19 % (0-9) Eosinophils (%) (Auto) 3 % (0-3) Basophils (%) (Auto) 1 % (0-3) Neutrophils # (Auto) 1.7 x10^3/uL (1.8-7.7) Lymphocytes # (Auto) 0.6 x10^3/uL (1.0-4.8) Monocytes # (Auto) 0.6 x10^3/uL (0.0-1.1) Eosinophils # (Auto) 0.1 x10^3/uL (0.0-0.7) Basophils # (Auto) 0.0 x10^3/uL (0.0-0.2) Test 04/27/20 07:25 04/27/20 11:25 Glucose (Fingerstick) 213 mg/dL (70-99) 215 mg/dL (70-99) Vitals/I & O Vital Sign - Last 24 Hours 04/26/20 04/26/20 04/26/20 04/26/20 13:00 14:00 15:00 16:00 Pulse 66 68 70 B/P (MAP) 102/42 (62) 98/46 (63) 102/42 (62) Pulse Ox 95 95 93 O2 Delivery Nasal Cannula Nasal Cannula Nasal Cannula Nasal Cannula O2 Flow Rate 1.0 1.0 1.0 1.0 04/26/20 04/26/20 04/26/20 04/26/20 16:00 17:00 18:00 18:11 Pulse 70 72 79 Resp 20 B/P (MAP) 100/42 (61) 100/46 (64) 114/45 (68) Pulse Ox 93 92 95 93 O2 Delivery Nasal Cannula Nasal Cannula Nasal Cannula Nasal Cannula O2 Flow Rate 1.0 1.0 3.0 2.0 04/26/20 04/26/20 04/26/20 04/27/20 19:00 20:00 23:00 02:43 Temp 98.8 98.8 Pulse 74 66 Resp 20 B/P (MAP) 110/42 (64) 93/49 (64) Pulse Ox 95 96 O2 Delivery Nasal Cannula Nasal Cannula Nasal Cannula Nasal Cannula O2 Flow Rate 3.0 3.0 3.0 3.0 04/27/20 04/27/20 04/27/20 04/27/20 03:11 03:51 07:00 08:00 Temp 98.3 97.8 98.3 97.8 Pulse 66 61 Resp 18 16 16 B/P (MAP) 114/50 (71) 132/57 (82) Pulse Ox 99 99 94 O2 Delivery Nasal Cannula Nasal Cannula Nasal Cannula Nasal Cannula O2 Flow Rate 3.0 3.0 3.0 3.0 04/27/20 10:55 Temp 98.6 98.6 Pulse 65 Resp 18 B/P (MAP) 113/40 (64) Pulse Ox 96 O2 Delivery Nasal Cannula O2 Flow Rate 3.0 Intake and Output 04/26/20 04/26/20 04/27/20 14:59 22:59 06:59 Intake Total 0 ml 40 ml 0 ml Output Total 0 ml 0 ml Balance 0 ml 40 ml 0 ml Assessment N and V likely from the hyperglycemia. H/o GERD and DU; on PPI. Plan of Care: Continue current Tx, Mgmt Justicifation of Admission Dx: Justifications for Admission: Justification of Admission Dx: Yes DKA: DKA MOOKIE DE LA CRUZ MD Apr 27, 2020 12:15
--- NOTE | 2020-04-27 12:33 | PDOC ---
PULMONARY PROGRESS NOTES Subjective n 02, has some sob, has occ cough Vitals Vital Signs Date Time Temp Pulse Resp B/P (MAP) Pulse Ox O2 Delivery O2 Flow Rate FiO2 04/27/20 10:55 98.6 65 18 113/40 (64) 96 Nasal Cannula 3.0 98.6 General: Alert, No acute distress Lungs: Clear, Other Cardiovascular: S1, S2 Abdomen: Other Extremities: Other Skin: Warm Labs Laboratory Tests Test 04/25/20 18:04 04/25/20 19:34 04/25/20 20:30 04/25/20 22:18 Glucose (Fingerstick) 451 mg/dL (70-99) 413 mg/dL (70-99) 359 mg/dL (70-99) Sodium Level 134 mmol/L (136-145) Potassium Level 4.5 mmol/L (3.5-5.1) Chloride Level 95 mmol/L (98-107) Carbon Dioxide Level 23 mmol/L (21-32) Anion Gap 16 (6-14) Blood Urea Nitrogen 58 mg/dL (8-26) Creatinine 4.9 mg/dL (0.7-1.3) Estimated GFR (Cockcroft-Gault) 11.5 Glucose Level 487 mg/dL (70-99) Calcium Level 8.4 mg/dL (8.5-10.1) Phosphorus Level 5.8 mg/dL (2.6-4.7) Magnesium Level 2.1 mg/dL (1.8-2.4) Test 04/25/20 23:26 04/26/20 00:46 04/26/20 01:00 04/26/20 01:52 Glucose (Fingerstick) 413 mg/dL (70-99) 379 mg/dL (70-99) 348 mg/dL (70-99) Sodium Level 135 mmol/L (136-145) Potassium Level 4.0 mmol/L (3.5-5.1) Chloride Level 98 mmol/L (98-107) Carbon Dioxide Level 26 mmol/L (21-32) Anion Gap 11 (6-14) Blood Urea Nitrogen 59 mg/dL (8-26) Creatinine 5.0 mg/dL (0.7-1.3) Estimated GFR (Cockcroft-Gault) 11.3 Glucose Level 408 mg/dL (70-99) Calcium Level 8.4 mg/dL (8.5-10.1) Phosphorus Level 5.1 mg/dL (2.6-4.7) Magnesium Level 2.1 mg/dL (1.8-2.4) Test 04/26/20 02:59 04/26/20 04:03 04/26/20 04:30 04/26/20 05:08 Glucose (Fingerstick) 280 mg/dL (70-99) 240 mg/dL (70-99) 210 mg/dL (70-99) Sodium Level 136 mmol/L (136-145) Potassium Level 4.0 mmol/L (3.5-5.1) Chloride Level 99 mmol/L (98-107) Carbon Dioxide Level 28 mmol/L (21-32) Anion Gap 9 (6-14) Blood Urea Nitrogen 61 mg/dL (8-26) Creatinine 5.1 mg/dL (0.7-1.3) Estimated GFR (Cockcroft-Gault) 11.0 Glucose Level 276 mg/dL (70-99) Calcium Level 8.9 mg/dL (8.5-10.1) Phosphorus Level 4.5 mg/dL (2.6-4.7) Magnesium Level 2.1 mg/dL (1.8-2.4) Test 04/26/20 06:22 04/26/20 07:44 04/26/20 08:00 04/26/20 13:55 Glucose (Fingerstick) 174 mg/dL (70-99) 130 mg/dL (70-99) 151 mg/dL (70-99) White Blood Count 2.4 x10^3/uL (4.0-11.0) Red Blood Count 3.27 x10^6/uL (4.30-5.70) Hemoglobin 10.6 g/dL (13.0-17.5) Hematocrit 31.7 % (39.0-53.0) Mean Corpuscular Volume 97 fL (79-100) Mean Corpuscular Hemoglobin 32 pg (25-35) Mean Corpuscular Hemoglobin Concent 33 g/dL (31-37) Red Cell Distribution Width 16.7 % (11.5-14.5) Platelet Count 142 x10^3/uL (140-400) Neutrophils (%) (Auto) 53 % (31-73) Lymphocytes (%) (Auto) 23 % (24-48) Monocytes (%) (Auto) 22 % (0-9) Eosinophils (%) (Auto) 2 % (0-3) Basophils (%) (Auto) 1 % (0-3) Neutrophils # (Auto) 1.3 x10^3/uL (1.8-7.7) Lymphocytes # (Auto) 0.5 x10^3/uL (1.0-4.8) Monocytes # (Auto) 0.5 x10^3/uL (0.0-1.1) Eosinophils # (Auto) 0.1 x10^3/uL (0.0-0.7) Basophils # (Auto) 0.0 x10^3/uL (0.0-0.2) Segmented Neutrophils % 17 % (35-66) Band Neutrophils % 29 % (0-9) Lymphocytes % 33 % (24-48) Atypical Lymphocytes % (Manual) 2 % (0-0) Monocytes % 11 % (0-10) Eosinophils % 3 % (0-5) Basophils % 1 % (0-3) Metamyelocytes % 2 % (0-0) Myelocytes % 2 % (0-0) Platelet Estimate Adequate (ADEQUATE) Anisocytosis Slight Test 04/26/20 18:15 04/26/20 20:44 04/27/20 07:15 04/27/20 07:25 Glucose (Fingerstick) 298 mg/dL (70-99) 251 mg/dL (70-99) 213 mg/dL (70-99) White Blood Count 3.0 x10^3/uL (4.0-11.0) Red Blood Count 3.15 x10^6/uL (4.30-5.70) Hemoglobin 10.2 g/dL (13.0-17.5) Hematocrit 30.6 % (39.0-53.0) Mean Corpuscular Volume 97 fL (79-100) Mean Corpuscular Hemoglobin 32 pg (25-35) Mean Corpuscular Hemoglobin Concent 33 g/dL (31-37) Red Cell Distribution Width 16.9 % (11.5-14.5) Platelet Count 139 x10^3/uL (140-400) Neutrophils (%) (Auto) 57 % (31-73) Lymphocytes (%) (Auto) 21 % (24-48) Monocytes (%) (Auto) 19 % (0-9) Eosinophils (%) (Auto) 3 % (0-3) Basophils (%) (Auto) 1 % (0-3) Neutrophils # (Auto) 1.7 x10^3/uL (1.8-7.7) Lymphocytes # (Auto) 0.6 x10^3/uL (1.0-4.8) Monocytes # (Auto) 0.6 x10^3/uL (0.0-1.1) Eosinophils # (Auto) 0.1 x10^3/uL (0.0-0.7) Basophils # (Auto) 0.0 x10^3/uL (0.0-0.2) Test 04/27/20 11:25 Glucose (Fingerstick) 215 mg/dL (70-99) Laboratory Tests Test 04/26/20 13:55 04/26/20 18:15 04/26/20 20:44 04/27/20 07:15 Glucose (Fingerstick) 151 mg/dL (70-99) 298 mg/dL (70-99) 251 mg/dL (70-99) White Blood Count 3.0 x10^3/uL (4.0-11.0) Red Blood Count 3.15 x10^6/uL (4.30-5.70) Hemoglobin 10.2 g/dL (13.0-17.5) Hematocrit 30.6 % (39.0-53.0) Mean Corpuscular Volume 97 fL (79-100) Mean Corpuscular Hemoglobin 32 pg (25-35) Mean Corpuscular Hemoglobin Concent 33 g/dL (31-37) Red Cell Distribution Width 16.9 % (11.5-14.5) Platelet Count 139 x10^3/uL (140-400) Neutrophils (%) (Auto) 57 % (31-73) Lymphocytes (%) (Auto) 21 % (24-48) Monocytes (%) (Auto) 19 % (0-9) Eosinophils (%) (Auto) 3 % (0-3) Basophils (%) (Auto) 1 % (0-3) Neutrophils # (Auto) 1.7 x10^3/uL (1.8-7.7) Lymphocytes # (Auto) 0.6 x10^3/uL (1.0-4.8) Monocytes # (Auto) 0.6 x10^3/uL (0.0-1.1) Eosinophils # (Auto) 0.1 x10^3/uL (0.0-0.7) Basophils # (Auto) 0.0 x10^3/uL (0.0-0.2) Test 04/27/20 07:25 04/27/20 11:25 Glucose (Fingerstick) 213 mg/dL (70-99) 215 mg/dL (70-99) Medications Active Scripts Medications Dose Route/Sig Max Daily Dose Days Date Category Renvela (Sevelamer Carbonate) 800 Mg Tablet 800 Mg PO TIDWMEALS 04/26/20 Reported Promethazine Hcl 25 Mg Supp.rect 25 Mg RC Q12HR PRN 04/26/20 Reported Novolog (Insulin Aspart) 100 Unit/1 Ml Vial 0 SQ TIDAC 04/26/20 Reported Midodrine Hcl 5 Mg Tablet 5 Mg PO PRN PRN 04/26/20 Reported Levothyroxine Sodium 175 Mcg Tablet 175 Mcg PO DAILYAC 11/22/19 Reported Zofran (Ondansetron Hcl) 4 Mg Tablet 1 Tab PO Q4HRS PRN 09/10/19 Reported Flomax (Tamsulosin Hcl) 0.4 Mg Cap.er.24h 1 Cap PO DAILY 09/10/19 Reported Pantoprazole Sodium (Pantoprazole Sodium) 40 Mg Tablet.dr 40 Mg PO DAILYAC 09/10/19 Reported Multi Vitamin Daily (Multivitamin) 1 Each Tablet 1 Tab PO DAILY 30 09/10/19 Reported Morphine Sulfate 30 Mg Tablet 2 Tab PO TID 09/10/19 Reported Lantus Solostar (Insulin Glargine,Hum.rec.anlog) 100 Unit/1 Ml Insuln.pen 5 Unit SQ QHS 09/10/19 Reported Hydromorphone Hcl 4 Mg Tablet 4 Mg PO PRN Q6HRS PRN 09/10/19 Reported Atorvastatin Calcium 20 Mg Tablet 1 Tab PO DAILY 09/10/19 Reported Finasteride 5 Mg Tablet 1 Tab PO DAILY 06/07/19 Reported Impression . IMPRESSION: 1. Acute hypoxemic respiratory failure. 2. Abnormal chest x-ray. 3. Status post diabetic ketoacidosis. 4. Leukopenia. 5. End-stage renal disease, on hemodialysis. 6. History of Clostridium difficile colitis. 7. History of left shoulder infection with group B strep. 8. Coronary artery disease. 9. History of T12 compression fracture. Plan . PLAN AND RECOMMENDATIONS: 1. Titrate FiO2 to keep O2 saturation 92%. 2. repeat his x-ray reviewed. 3. Follow up COVID-19 testing. 4. ID is consulted. They are monitoring him off antibiotics. 5. Protonix for stress ulcer prophylaxis. 6. Hemodialysis per Nephrology. 7. The findings and recommendations were discussed with RN and RT. MARY MARROQUIN MD Apr 27, 2020 12:33
--- NOTE | 2020-04-27 14:05 | PDOC ---
GENERAL General: Patient examined chart reviewed today is hospital day 3 for this [facility] recovering after a hip fracture with acute hypoxic respiratory failure, hyperglycemia, and altered mental status. Patient is slowly improving. He was in the intensive care unit for an insulin infusion over the first 24 hours of his stay. His sugars are climbing and we have re-added his glargine 5 units at bedtime. Patient's respiratory status is improved and he does not have a distinctive lobar infiltrate. I defer to pulmonary on whether he needs antibiotic coverage. We are awaiting another COVID-19 test result from [facility]. Apparently he was negative just several days prior to admission here. We appreciate subspecialty support. Problems: (1) Hyperglycemia (2) ESRD on hemodialysis (3) Pneumonia (4) Acute respiratory failure VITAL SIGNS Vital Signs/I&O: Vital Signs Date Time Temp Pulse Resp B/P (MAP) Pulse Ox O2 Delivery O2 Flow Rate FiO2 04/27/20 10:55 98.6 65 18 113/40 (64) 96 Nasal Cannula 3.0 98.6 I & O 04/26/20 04/26/20 04/27/20 15:00 23:00 07:00 Intake Total 0 ml 40 ml 0 ml Output Total 0 ml 0 ml Balance 0 ml 40 ml 0 ml In general the patient is quiet resting in bed interacts appropriately but not talking much this morning HEENT exam is unremarkable Chest is clear to auscultation diminished air entry throughout Heart S1-S2 normal regular rate and rhythm no murmurs or gallops are noted Abdomen soft nontender nondistended no masses organomegaly noted Extremity exam is unremarkable for acute abnormality ALLERGIES Allergies: Allergies Coded Allergies Type Severity Reaction Last Updated Verified Penicillins Allergy Intermediate 09/21/19 Yes tapentadol Allergy Intermediate 06/14/19 Yes Iodinated Contrast Media Adverse Reaction Intermediate 09/10/19 Yes MEDS Medications: Current Medications Medications (Trade) Dose Ordered Sig/Lauren Start Time Stop Time Status Last Admin Dose Admin Atorvastatin Calcium (Lipitor) 20 mg QHS 04/26/20 21:00 04/26/20 20:40 Dextrose (Dextrose 50%-Water Syringe) 12.5 gm PRN Q15MIN PRN 04/26/20 07:15 Dextrose/Sodium Chloride 1,000 ml @ 75 mls/hr [id number] 04/26/20 05:15 04/26/20 19:14 DC 04/26/20 05:16 Finasteride (Proscar) 5 mg DAILY 04/26/20 13:00 04/27/20 08:54 Hydromorphone HCl (Dilaudid) 4 mg PRN Q6HRS PRN 04/26/20 18:15 04/27/20 02:43 Insulin Glargine (Lantus Syringe) 5 unit QHS 04/27/20 21:00 UNV Insulin Human Lispro (HumaLOG) 0-7 UNITS TIDWMEALS 04/26/20 08:00 04/27/20 12:43 Insulin Human Regular 100 unit/ Sodium Chloride 101 ml @ 0 mls/hr CONT PRN PRN 04/25/20 18:45 04/26/20 08:41 DC 04/26/20 03:19 Levothyroxine Sodium (Synthroid) 175 mcg DAILY06 04/27/20 06:00 04/27/20 06:00 Magnesium Sulfate 100 ml @ 25 mls/hr DAILY 04/26/20 09:00 04/26/20 08:41 DC Midodrine (Proamatine) 5 mg TID PRN PRN 04/26/20 12:30 Multivitamins (Thera M Plus) 1 tab DAILY 04/27/20 09:00 04/27/20 08:54 Ondansetron HCl (Zofran Odt) 4 mg PRN Q4HRS PRN 04/26/20 12:45 Pantoprazole Sodium (PROTONIX VIAL for IV PUSH) 40 mg DAILYAC 04/26/20 12:15 04/27/20 08:56 Pantoprazole Sodium (Protonix) 40 mg DAILYAC 04/26/20 16:30 Potassium Chloride/Water 100 ml @ 100 mls/hr Q1H 04/26/20 01:45 04/26/20 03:44 DC 04/26/20 03:19 Promethazine HCl (Phenergan Supp) 25 mg Q12HR PRN 04/26/20 12:30 Sevelamer Carbonate (Renvela) 800 mg TIDWMEALS 04/26/20 12:30 04/27/20 12:42 Sodium Chloride 1,000 ml @ 75 mls/hr [id number] 04/26/20 19:15 04/27/20 08:55 Tamsulosin HCl (Flomax) 0.4 mg DAILY 04/26/20 13:00 04/27/20 08:54 Current Medications Medications (Trade) Dose Ordered Sig/Lauren Route PRN Reason Start Time Stop Time Status Last Admin Dose Admin Insulin Glargine (Lantus Syringe) 5 unit QHS SQ 04/26/20 21:00 04/26/20 20:51 Atorvastatin Calcium (Lipitor) 20 mg QHS PO 04/26/20 21:00 04/26/20 20:40 Levothyroxine Sodium (Synthroid) 175 mcg DAILY06 PO 04/27/20 06:00 04/27/20 06:00 Multivitamins (Thera M Plus) 1 tab DAILY PO 04/27/20 09:00 04/27/20 08:54 Hydromorphone HCl (Dilaudid) 4 mg PRN Q6HRS PRN PO PAIN 04/26/20 18:15 04/27/20 02:43 Sodium Chloride 1,000 ml @ 75 mls/hr [id number] IV 04/26/20 19:15 04/27/20 08:55 LAB Lab: Laboratory Tests Test 04/26/20 18:15 04/26/20 20:44 04/27/20 07:15 04/27/20 07:25 Glucose (Fingerstick) 298 mg/dL (70-99) H 251 mg/dL (70-99) H 213 mg/dL (70-99) H White Blood Count 3.0 x10^3/uL (4.0-11.0) L Red Blood Count 3.15 x10^6/uL (4.30-5.70) L Hemoglobin 10.2 g/dL (13.0-17.5) L Hematocrit 30.6 % (39.0-53.0) L Mean Corpuscular Volume 97 fL (79-100) Mean Corpuscular Hemoglobin 32 pg (25-35) Mean Corpuscular Hemoglobin Concent 33 g/dL (31-37) Red Cell Distribution Width 16.9 % (11.5-14.5) H Platelet Count 139 x10^3/uL (140-400) L Neutrophils (%) (Auto) 57 % (31-73) Lymphocytes (%) (Auto) 21 % (24-48) L Monocytes (%) (Auto) 19 % (0-9) H Eosinophils (%) (Auto) 3 % (0-3) Basophils (%) (Auto) 1 % (0-3) Neutrophils # (Auto) 1.7 x10^3/uL (1.8-7.7) L Lymphocytes # (Auto) 0.6 x10^3/uL (1.0-4.8) L Monocytes # (Auto) 0.6 x10^3/uL (0.0-1.1) Eosinophils # (Auto) 0.1 x10^3/uL (0.0-0.7) Basophils # (Auto) 0.0 x10^3/uL (0.0-0.2) Test 04/27/20 11:25 Glucose (Fingerstick) 215 mg/dL (70-99) H Laboratory Tests 04/27/20 07:15 IMAGING Imaging: PATIENT: ROSLYN MOORE ACCOUNT: [id number] : 1940 LOCATION: [facility] AGE: 79 SEX: M EXAM STATUS: ADM IN ORD. PHYSICIAN: MARY MARROQUIN MD REASON: fu infilt PROCEDURE: CHEST AP ONLY EXAM: CHEST 1 VIEW History: Follow-up infiltrates COMPARISON: 11/22/2019 TECHNIQUE: Single portable radiograph of the chest FINDINGS: Low lung volumes and technique accentuates heart size and pulmonary vascularity. Right-sided dialysis catheter are unchanged. Mild prominent bilateral interstitial lung markings. Mild bibasilar lung airspace opacities.. Mild prominent bilateral interstitial markings likely mild congestive changes IMPRESSION: Mild congestive changes with mild bibasilar lung airspace opacities likely atelectasis or infiltrates mildly improved since prior exam. Electronically signed by: Isaak Harmon MD (04/26/2020 1:49 PM) [id number] DICTATED and SIGNED BY: ISAAK HARMON MD DATE: 04/26/20 1349 ASSESSMENT & PLAN A&P Plan as noted above This note was created using [employer] and may have omissions and/or errors due to the nature of real-time voice netsuite developer. Justicifation of Admission Dx: Justifications for Admission: Justification of Admission Dx: Yes DKA: DKA KARRIE ENAMORADO MD Apr 27, 2020 14:05
[2020-04-27 15:00] VITALS: BP 110/49
--- NOTE | 2020-04-27 15:21 | PDOC ---
Infectious Disease Note Subjective Subjective Feeling better today Doesn't think he needs the supplemental O2, currently on 3L Feels like having a bowel movement Not very hungry Denies F/C/SOA/cramps/N/V ROS ROS as mentioned above Vital Sign Vital Signs Vital Signs Date Time Temp Pulse Resp B/P (MAP) Pulse Ox O2 Delivery O2 Flow Rate FiO2 04/27/20 10:55 98.6 65 18 113/40 (64) 96 Nasal Cannula 3.0 98.6 Physical Exam PHYSICAL EXAM GENERAL: Propped up in bed, alert in NAD HEENT: Normal conjunctivae. Oral cavity, pharynx was clear. NECK: Supple, no JVD. LUNGS: Decreased in the bases, nonlabored HEART: S1, S2. ABDOMEN: Soft, no guarding or rebound. EXTREMITIES: Without clubbing, cyanosis. Trace edema. Left knee brace. NEUROLOGIC: Alert, answers questions. MUSCULOSKELETAL: Multiple joint deformities, left shoulder is without signs of inflammation or erythema. Right hemodialysis catheter without signs of any complications. Labs Lab Laboratory Tests Test 04/26/20 18:15 04/26/20 20:44 04/27/20 07:15 04/27/20 07:25 Glucose (Fingerstick) 298 mg/dL (70-99) 251 mg/dL (70-99) 213 mg/dL (70-99) White Blood Count 3.0 x10^3/uL (4.0-11.0) Red Blood Count 3.15 x10^6/uL (4.30-5.70) Hemoglobin 10.2 g/dL (13.0-17.5) Hematocrit 30.6 % (39.0-53.0) Mean Corpuscular Volume 97 fL (79-100) Mean Corpuscular Hemoglobin 32 pg (25-35) Mean Corpuscular Hemoglobin Concent 33 g/dL (31-37) Red Cell Distribution Width 16.9 % (11.5-14.5) Platelet Count 139 x10^3/uL (140-400) Neutrophils (%) (Auto) 57 % (31-73) Lymphocytes (%) (Auto) 21 % (24-48) Monocytes (%) (Auto) 19 % (0-9) Eosinophils (%) (Auto) 3 % (0-3) Basophils (%) (Auto) 1 % (0-3) Neutrophils # (Auto) 1.7 x10^3/uL (1.8-7.7) Lymphocytes # (Auto) 0.6 x10^3/uL (1.0-4.8) Monocytes # (Auto) 0.6 x10^3/uL (0.0-1.1) Eosinophils # (Auto) 0.1 x10^3/uL (0.0-0.7) Basophils # (Auto) 0.0 x10^3/uL (0.0-0.2) Test 04/27/20 11:25 Glucose (Fingerstick) 215 mg/dL (70-99) CXR IMPRESSION: Mild congestive changes with mild bibasilar lung airspace opacities likely atelectasis or infiltrates mildly improved since prior exam. Objective Assessment Shortness of air, improved. Hyperglycemia. Questionable gastrointestinal bleed. PENICILLIN ALLERGY. Leukopenia has been present in the past. Chronic kidney disease, on hemodialysis. History of Clostridium difficile. History of left shoulder infection with group B strep, had been on chronic suppressive antibiotics, appears to be off now and shoulder is benign. Coronary artery disease. Abdominal wall hernia. History of T12 compression fracture. Atrial fibrillation. Plan Plan of Care Clinically stable given h/o C-diff and AF with nml WBC and BP - hold abx COVID-19 still pending Feeling better. States he doesn't need his oxygen. At baseline Attending Co-Sign Attending Co-Sign The patient was seen and interviewed as well as examined at the bedside. The chart was reviewed. The case was discussed. Agree with the plan of care. LALO SCHWARZ APRN Apr 27, 2020 15:21 RANDEE GARRETT MD Apr 27, 2020 15:35
[2020-04-27 19:00] VITALS: BP 138/53
[2020-04-27] MEDS ORDERED: INSULIN GLARGINE SYRINGE. SQ SCH (21:00)
[2020-04-27] MEDS: ATORVASTATIN CALCIUM 20 MG TABLET PO SCH (22:13)
[2020-04-27] MEDS: INSULIN GLARGINE SYRINGE. SQ SCH (22:24)
[2020-04-27 23:00] VITALS: BP 139/57
[2020-04-28 03:00] VITALS: BP 142/62
[2020-04-28 05:12] LABS: BASO % 0 % (0-3); EOS # 0.3 x10^3/uL (0.0-0.7); EOS % 10 % (0-3); HEMATOCRIT 29.5 % (39.0-53.0); HEMOGLOBIN 9.8 g/dL (13.0-17.5); LYMPH # 0.5 x10^3/uL (1.0-4.8); LYMPH % 20 % (24-48); MEAN CORPUSCULAR HEMOGLOBIN 32 pg (25-35); MEAN CORPUSCULAR HGB CONC 33 g/dL (31-37); MEAN CORPUSCULAR VOLUME 98 fL (79-100); MONO # 0.4 x10^3/uL (0.0-1.1); MONO % 14 % (0-9); NEUT # 1.4 x10^3/uL (1.8-7.7); NEUT % 55 % (31-73); PLATELET COUNT 117 x10^3/uL (140-400); RED BLOOD COUNT 3.02 x10^6/uL (4.30-5.70); RED CELL DISTRIBUTION WIDTH 16.6 % (11.5-14.5); WHITE BLOOD COUNT 2.6 x10^3/uL (4.0-11.0)
[2020-04-28 06:01] LABS: ALBUMIN 2.3 g/dL (3.4-5.0); ALBUMIN/GLOBULIN RATIO 0.8 (1.0-1.7); CALCIUM 8.8 mg/dL (8.5-10.1); CREATININE 6.2 mg/dL (0.7-1.3); GFR 8.8; POTASSIUM 4.7 mmol/L (3.5-5.1); TOTAL BILIRUBIN 0.4 mg/dL (0.2-1.0); TOTAL PROTEIN 5.1 g/dL (6.4-8.2)
[2020-04-28 07:20] VITALS: BP 135/60
[2020-04-28] MEDS: PANTOPRAZOLE IV PUSH 40 MG VIAL. IVP SCH (07:30)
[2020-04-28] MEDS: LEVOTHYROXINE 175 MCG TABLET PO SCH (07:41)
[2020-04-28] MEDS: INSULIN LISPRO 300 UNITS/3 ML VIAL. SQ SCH ×3 (08:00→17:00)
--- NOTE | 2020-04-28 08:32 | PDOC ---
PULMONARY PROGRESS NOTES Subjective Patient not short of air, wishes oxygen to be discontinued Vitals Vital Signs Date Time Temp Pulse Resp B/P (MAP) Pulse Ox O2 Delivery O2 Flow Rate FiO2 04/28/20 07:20 98.5 65 17 135/60 (85) 97 Nasal Cannula 1.0 98.5 ROS: No Nausea, No Chest Pain, No Abdominal Pain General: Alert, No acute distress Lungs: Clear Cardiovascular: S1, S2 Abdomen: Soft, Other Neuro Exam: Alert Extremities: No Edema, Other Skin: Warm Labs Laboratory Tests Test 04/26/20 13:55 04/26/20 18:15 04/26/20 20:44 04/27/20 07:15 Glucose (Fingerstick) 151 mg/dL (70-99) 298 mg/dL (70-99) 251 mg/dL (70-99) White Blood Count 3.0 x10^3/uL (4.0-11.0) Red Blood Count 3.15 x10^6/uL (4.30-5.70) Hemoglobin 10.2 g/dL (13.0-17.5) Hematocrit 30.6 % (39.0-53.0) Mean Corpuscular Volume 97 fL (79-100) Mean Corpuscular Hemoglobin 32 pg (25-35) Mean Corpuscular Hemoglobin Concent 33 g/dL (31-37) Red Cell Distribution Width 16.9 % (11.5-14.5) Platelet Count 139 x10^3/uL (140-400) Neutrophils (%) (Auto) 57 % (31-73) Lymphocytes (%) (Auto) 21 % (24-48) Monocytes (%) (Auto) 19 % (0-9) Eosinophils (%) (Auto) 3 % (0-3) Basophils (%) (Auto) 1 % (0-3) Neutrophils # (Auto) 1.7 x10^3/uL (1.8-7.7) Lymphocytes # (Auto) 0.6 x10^3/uL (1.0-4.8) Monocytes # (Auto) 0.6 x10^3/uL (0.0-1.1) Eosinophils # (Auto) 0.1 x10^3/uL (0.0-0.7) Basophils # (Auto) 0.0 x10^3/uL (0.0-0.2) Test 04/27/20 07:25 04/27/20 11:25 04/27/20 16:34 04/27/20 21:26 Glucose (Fingerstick) 213 mg/dL (70-99) 215 mg/dL (70-99) 150 mg/dL (70-99) 118 mg/dL (70-99) Test 04/28/20 03:48 White Blood Count 2.6 x10^3/uL (4.0-11.0) Red Blood Count 3.02 x10^6/uL (4.30-5.70) Hemoglobin 9.8 g/dL (13.0-17.5) Hematocrit 29.5 % (39.0-53.0) Mean Corpuscular Volume 98 fL (79-100) Mean Corpuscular Hemoglobin 32 pg (25-35) Mean Corpuscular Hemoglobin Concent 33 g/dL (31-37) Red Cell Distribution Width 16.6 % (11.5-14.5) Platelet Count 117 x10^3/uL (140-400) Neutrophils (%) (Auto) 55 % (31-73) Lymphocytes (%) (Auto) 20 % (24-48) Monocytes (%) (Auto) 14 % (0-9) Eosinophils (%) (Auto) 10 % (0-3) Basophils (%) (Auto) 0 % (0-3) Neutrophils # (Auto) 1.4 x10^3/uL (1.8-7.7) Lymphocytes # (Auto) 0.5 x10^3/uL (1.0-4.8) Monocytes # (Auto) 0.4 x10^3/uL (0.0-1.1) Eosinophils # (Auto) 0.3 x10^3/uL (0.0-0.7) Basophils # (Auto) 0.0 x10^3/uL (0.0-0.2) Sodium Level 138 mmol/L (136-145) Potassium Level 4.7 mmol/L (3.5-5.1) Chloride Level 101 mmol/L (98-107) Carbon Dioxide Level 25 mmol/L (21-32) Anion Gap 12 (6-14) Blood Urea Nitrogen 78 mg/dL (8-26) Creatinine 6.2 mg/dL (0.7-1.3) Estimated GFR (Cockcroft-Gault) 8.8 BUN/Creatinine Ratio 13 (6-20) Glucose Level 91 mg/dL (70-99) Calcium Level 8.8 mg/dL (8.5-10.1) Total Bilirubin 0.4 mg/dL (0.2-1.0) Aspartate Amino Transf (AST/SGOT) 17 U/L (15-37) Alanine Aminotransferase (ALT/SGPT) 16 U/L (16-63) Alkaline Phosphatase 55 U/L (46-116) Total Protein 5.1 g/dL (6.4-8.2) Albumin 2.3 g/dL (3.4-5.0) Albumin/Globulin Ratio 0.8 (1.0-1.7) Laboratory Tests Test 04/27/20 11:25 04/27/20 16:34 04/27/20 21:26 04/28/20 03:48 Glucose (Fingerstick) 215 mg/dL (70-99) 150 mg/dL (70-99) 118 mg/dL (70-99) White Blood Count 2.6 x10^3/uL (4.0-11.0) Red Blood Count 3.02 x10^6/uL (4.30-5.70) Hemoglobin 9.8 g/dL (13.0-17.5) Hematocrit 29.5 % (39.0-53.0) Mean Corpuscular Volume 98 fL (79-100) Mean Corpuscular Hemoglobin 32 pg (25-35) Mean Corpuscular Hemoglobin Concent 33 g/dL (31-37) Red Cell Distribution Width 16.6 % (11.5-14.5) Platelet Count 117 x10^3/uL (140-400) Neutrophils (%) (Auto) 55 % (31-73) Lymphocytes (%) (Auto) 20 % (24-48) Monocytes (%) (Auto) 14 % (0-9) Eosinophils (%) (Auto) 10 % (0-3) Basophils (%) (Auto) 0 % (0-3) Neutrophils # (Auto) 1.4 x10^3/uL (1.8-7.7) Lymphocytes # (Auto) 0.5 x10^3/uL (1.0-4.8) Monocytes # (Auto) 0.4 x10^3/uL (0.0-1.1) Eosinophils # (Auto) 0.3 x10^3/uL (0.0-0.7) Basophils # (Auto) 0.0 x10^3/uL (0.0-0.2) Sodium Level 138 mmol/L (136-145) Potassium Level 4.7 mmol/L (3.5-5.1) Chloride Level 101 mmol/L (98-107) Carbon Dioxide Level 25 mmol/L (21-32) Anion Gap 12 (6-14) Blood Urea Nitrogen 78 mg/dL (8-26) Creatinine 6.2 mg/dL (0.7-1.3) Estimated GFR (Cockcroft-Gault) 8.8 BUN/Creatinine Ratio 13 (6-20) Glucose Level 91 mg/dL (70-99) Calcium Level 8.8 mg/dL (8.5-10.1) Total Bilirubin 0.4 mg/dL (0.2-1.0) Aspartate Amino Transf (AST/SGOT) 17 U/L (15-37) Alanine Aminotransferase (ALT/SGPT) 16 U/L (16-63) Alkaline Phosphatase 55 U/L (46-116) Total Protein 5.1 g/dL (6.4-8.2) Albumin 2.3 g/dL (3.4-5.0) Albumin/Globulin Ratio 0.8 (1.0-1.7) Medications Active Scripts Medications Dose Route/Sig Max Daily Dose Days Date Category Renvela (Sevelamer Carbonate) 800 Mg Tablet 800 Mg PO TIDWMEALS 04/26/20 Reported Promethazine Hcl 25 Mg Supp.rect 25 Mg RC Q12HR PRN 04/26/20 Reported Novolog (Insulin Aspart) 100 Unit/1 Ml Vial 0 SQ TIDAC 04/26/20 Reported Midodrine Hcl 5 Mg Tablet 5 Mg PO PRN PRN 04/26/20 Reported Levothyroxine Sodium 175 Mcg Tablet 175 Mcg PO DAILYAC 11/22/19 Reported Zofran (Ondansetron Hcl) 4 Mg Tablet 1 Tab PO Q4HRS PRN 09/10/19 Reported Flomax (Tamsulosin Hcl) 0.4 Mg Cap.er.24h 1 Cap PO DAILY 09/10/19 Reported Pantoprazole Sodium (Pantoprazole Sodium) 40 Mg Tablet.dr 40 Mg PO DAILYAC 09/10/19 Reported Multi Vitamin Daily (Multivitamin) 1 Each Tablet 1 Tab PO DAILY 30 09/10/19 Reported Morphine Sulfate 30 Mg Tablet 2 Tab PO TID 09/10/19 Reported Lantus Solostar (Insulin Glargine,Hum.rec.anlog) 100 Unit/1 Ml Insuln.pen 5 Unit SQ QHS 09/10/19 Reported Hydromorphone Hcl 4 Mg Tablet 4 Mg PO PRN Q6HRS PRN 09/10/19 Reported Atorvastatin Calcium 20 Mg Tablet 1 Tab PO DAILY 09/10/19 Reported Finasteride 5 Mg Tablet 1 Tab PO DAILY 06/07/19 Reported Impression . IMPRESSION: 1. Acute hypoxemic respiratory failure., Improved 2. Abnormal chest x-ray. 3. Status post diabetic ketoacidosis. 4. Leukopenia. 5. End-stage renal disease, on hemodialysis. 6. History of Clostridium difficile colitis. 7. History of left shoulder infection with group B strep. 8. Coronary artery disease. 9. History of T12 compression fracture. Plan . Check oxygen needs SARS-CoV-2 pending Follow infectious disease regarding antibiotics Hemodialysis per nephrology EDMAR GARG MD Apr 28, 2020 08:32
--- NOTE | 2020-04-28 10:10 | PDOC ---
Objective: Objective: Has renal diet ordered. Vital Signs: Vital Signs Date Time Temp Pulse Resp B/P (MAP) Pulse Ox O2 Delivery O2 Flow Rate FiO2 04/28/20 07:20 98.5 65 17 135/60 (85) 97 Nasal Cannula 1.0 98.5 Labs: Laboratory Tests Test 04/27/20 11:25 04/27/20 16:34 04/27/20 21:26 04/28/20 03:48 Glucose (Fingerstick) 215 mg/dL 150 mg/dL 118 mg/dL White Blood Count 2.6 x10^3/uL Red Blood Count 3.02 x10^6/uL Hemoglobin 9.8 g/dL Hematocrit 29.5 % Mean Corpuscular Volume 98 fL Mean Corpuscular Hemoglobin 32 pg Mean Corpuscular Hemoglobin Concent 33 g/dL Red Cell Distribution Width 16.6 % Platelet Count 117 x10^3/uL Neutrophils (%) (Auto) 55 % Lymphocytes (%) (Auto) 20 % Monocytes (%) (Auto) 14 % Eosinophils (%) (Auto) 10 % Basophils (%) (Auto) 0 % Neutrophils # (Auto) 1.4 x10^3/uL Lymphocytes # (Auto) 0.5 x10^3/uL Monocytes # (Auto) 0.4 x10^3/uL Eosinophils # (Auto) 0.3 x10^3/uL Basophils # (Auto) 0.0 x10^3/uL Sodium Level 138 mmol/L Potassium Level 4.7 mmol/L Chloride Level 101 mmol/L Carbon Dioxide Level 25 mmol/L Anion Gap 12 Blood Urea Nitrogen 78 mg/dL Creatinine 6.2 mg/dL Estimated GFR (Cockcroft-Gault) 8.8 BUN/Creatinine Ratio 13 Glucose Level 91 mg/dL Calcium Level 8.8 mg/dL Total Bilirubin 0.4 mg/dL Aspartate Amino Transf (AST/SGOT) 17 U/L Alanine Aminotransferase (ALT/SGPT) 16 U/L Alkaline Phosphatase 55 U/L Total Protein 5.1 g/dL Albumin 2.3 g/dL Albumin/Globulin Ratio 0.8 Test 04/28/20 08:30 Glucose (Fingerstick) 64 mg/dL PE: GEN: laying in bed, staff present LUNGS: NC 1L HEART: RR A/P: Hyperglycemia, n/v H/o GERD and DU Pancytopenia H/o abd wall hernia containing bowel - on past CT CRC screen - 2010 ESRD, CAD, DM -- Attempted to see twice - staff cleaning up after stooling incident - will return later. Continue PPI - change to PO as able. Anemia parameters for completeness. Await pending COVID test. Justicifation of Admission Dx: Justifications for Admission: Justification of Admission Dx: Yes DKA: DKA GERALD SMITH Apr 28, 2020 10:10
[2020-04-28] MEDS: SEVELAMER CARBONATE 800 MG TABLET. PO SCH ×3 (10:50→17:00)
[2020-04-28] MEDS: FINASTERIDE 5 MG TABLET. PO SCH (10:50)
[2020-04-28] MEDS: MULTIVITAMIN with MINERAL TABLET. PO SCH (10:50)
[2020-04-28] MEDS: TAMSULOSIN 0.4 MG CAP.ER.24H. PO SCH (10:50)
[2020-04-28] MEDS: PANTOPRAZOLE 40 MG TABLET.DR. PO SCH (10:51)
[2020-04-28 11:10] VITALS: BP 151/63
[2020-04-28] MEDS: IV NORMAL SALINE 1000ML BAG 1,000 ML IV SCH (11:15)
[2020-04-28] MEDS ORDERED: IV NORMAL SALINE 1000ML BAG 1,000 ML IV PRN ×2 (11:30)
[2020-04-28] MEDS ORDERED: 0.9 % SODIUM CHLORIDE 10 ML DISP.SYRIN. IV PRN ×2 (11:45)
[2020-04-28] MEDS ORDERED: ALBUMIN HUMAN 25% 200 ML IV PRN (11:45)
[2020-04-28] MEDS ORDERED: DIALYSIS PATIENT. MC PRN ×2 (11:45)
--- NOTE | 2020-04-28 12:06 | PDOC ---
Infectious Disease Note Subjective Subjective Feeling better today Doesn't think he needs the supplemental O2, currently on 3L Feels like having a bowel movement Not very hungry Denies F/C/SOA/cramps/N/V Vital Sign Vital Signs Vital Signs Date Time Temp Pulse Resp B/P (MAP) Pulse Ox O2 Delivery O2 Flow Rate FiO2 04/28/20 11:10 99.8 64 18 151/63 (92) 72 Nasal Cannula 1.0 99.8 Physical Exam PHYSICAL EXAM GENERAL: Propped up in bed, alert in NAD HEENT: Normal conjunctivae. Oral cavity, pharynx was clear. NECK: Supple, no JVD. LUNGS: Decreased in the bases, nonlabored HEART: S1, S2. ABDOMEN: Soft, no guarding or rebound. EXTREMITIES: Without clubbing, cyanosis. Trace edema. Left knee brace. NEUROLOGIC: Alert, answers questions. MUSCULOSKELETAL: Multiple joint deformities, left shoulder is without signs of inflammation or erythema. Right hemodialysis catheter without signs of any complications. Labs Lab Laboratory Tests Test 04/27/20 16:34 04/27/20 21:26 04/28/20 03:48 04/28/20 08:30 Glucose (Fingerstick) 150 mg/dL (70-99) 118 mg/dL (70-99) 64 mg/dL (70-99) White Blood Count 2.6 x10^3/uL (4.0-11.0) Red Blood Count 3.02 x10^6/uL (4.30-5.70) Hemoglobin 9.8 g/dL (13.0-17.5) Hematocrit 29.5 % (39.0-53.0) Mean Corpuscular Volume 98 fL (79-100) Mean Corpuscular Hemoglobin 32 pg (25-35) Mean Corpuscular Hemoglobin Concent 33 g/dL (31-37) Red Cell Distribution Width 16.6 % (11.5-14.5) Platelet Count 117 x10^3/uL (140-400) Neutrophils (%) (Auto) 55 % (31-73) Lymphocytes (%) (Auto) 20 % (24-48) Monocytes (%) (Auto) 14 % (0-9) Eosinophils (%) (Auto) 10 % (0-3) Basophils (%) (Auto) 0 % (0-3) Neutrophils # (Auto) 1.4 x10^3/uL (1.8-7.7) Lymphocytes # (Auto) 0.5 x10^3/uL (1.0-4.8) Monocytes # (Auto) 0.4 x10^3/uL (0.0-1.1) Eosinophils # (Auto) 0.3 x10^3/uL (0.0-0.7) Basophils # (Auto) 0.0 x10^3/uL (0.0-0.2) Sodium Level 138 mmol/L (136-145) Potassium Level 4.7 mmol/L (3.5-5.1) Chloride Level 101 mmol/L (98-107) Carbon Dioxide Level 25 mmol/L (21-32) Anion Gap 12 (6-14) Blood Urea Nitrogen 78 mg/dL (8-26) Creatinine 6.2 mg/dL (0.7-1.3) Estimated GFR (Cockcroft-Gault) 8.8 BUN/Creatinine Ratio 13 (6-20) Glucose Level 91 mg/dL (70-99) Calcium Level 8.8 mg/dL (8.5-10.1) Iron Level 50 ug/dL (65-175) Total Iron Binding Capacity 123 ug/dL (250-450) Iron Saturation 41 % (15-34) Total Bilirubin 0.4 mg/dL (0.2-1.0) Aspartate Amino Transf (AST/SGOT) 17 U/L (15-37) Alanine Aminotransferase (ALT/SGPT) 16 U/L (16-63) Alkaline Phosphatase 55 U/L (46-116) Total Protein 5.1 g/dL (6.4-8.2) Albumin 2.3 g/dL (3.4-5.0) Albumin/Globulin Ratio 0.8 (1.0-1.7) Vitamin B12 Level 1236 pg/mL (247-911) Test 04/28/20 10:26 Glucose (Fingerstick) 72 mg/dL (70-99) Objective Assessment Shortness of air, improved. Hyperglycemia. Questionable gastrointestinal bleed. PENICILLIN ALLERGY. Leukopenia has been present in the past. Chronic kidney disease, on hemodialysis. History of Clostridium difficile. History of left shoulder infection with group B strep, had been on chronic suppressive antibiotics, appears to be off now and shoulder is benign. Coronary artery disease. Abdominal wall hernia. History of T12 compression fracture. Atrial fibrillation. Plan Plan of Care Clinically stable given h/o C-diff and AF with nml WBC and BP - hold abx COVID-19 still pending Feeling better. States he doesn't need his oxygen. At baseline AP PEACE MD Apr 28, 2020 12:06
--- NOTE | 2020-04-28 13:25 | PDOC2 ---
CONSULT Date of Consult Date of Consult DATE: 04/28/20 TIME: 13:18 Reason for Consult Reason for Consult: ESRD Source Source: Chart review, Patient History of Present Illness Reason for Visit: Pt is a 79-year-old CM with history of a left shoulder infection with hardware in place, neurofibromatosis , [place] [facility] [place] of [place] and hyperglycemia. He was 80% on room air. He was transferred to [facility] on 04/25 Urinalysis was obtained, not grossly concerning for UTI. Currently, the patient is sitting upright in bed , getting Dialysis. He denies fevers or chills . No nausea or vomiting. Denies any gross blood that he has seen in his stool and has no shortness of air, currently on room air Past Medical History Cardiovascular: CAD, HTN, Hyperlipidemia, Other Pulmonary: Other CENTRAL NERVOUS SYSTEM: Other GI: Other Hepatobiliary: No pertinent hx Psych: Depression Musculoskeletal: Other Renal/: Chronic renal insuff, Acute renal failure, Benign prostatic enlarg. Endocrine: Diabetes, Hypothyroidism Past Surgical History Past Surgical History: Arthroscopy, CABG, Other Family History Family History: Hypertension Social History ALCOHOL: none Drugs: None Lives: Alone Current Medications Current Medications Current Medications Sodium Chloride 1,000 ml @ 75 mls/hr [id number] IV Last administered on 04/25/20at 20:42; Start 04/25/20 at 18:40; Stop 04/26/20 at 08:41; Status DC Sodium Chloride 1,000 ml @ 75 mls/hr [id number] IV ; Start 04/25/20 at 18:40; Stop 04/26/20 at 08:41; Status DC Dextrose/Sodium Chloride 1,000 ml @ 75 mls/hr [id number] IV ; Start 04/25/20 at 18:40; Stop 04/26/20 at 08:41; Status DC Insulin Human Regular 100 unit/ Sodium Chloride 101 ml @ 0 mls/hr CONT PRN PRN IV PER PROTOCOL Last administered on 04/26/20at 03:19; Start 04/25/20 at 18:45; Stop 04/26/20 at 08:41; Status DC Potassium Chloride/Water 100 ml @ 100 mls/hr PRN Q1HR PRN IV SEE COMMENTS; Start 04/25/20 at 18:45; Stop 04/26/20 at 08:41; Status DC Potassium Chloride/Water 100 ml @ 100 mls/hr PRN Q1HR PRN IV SEE COMMENTS; Start 04/25/20 at 18:45; Stop 04/26/20 at 08:41; Status DC Potassium Chloride/Water 100 ml @ 100 mls/hr PRN Q1HR PRN IV SEE COMMENTS; Start 04/25/20 at 18:45; Stop 04/26/20 at 08:41; Status DC Magnesium Sulfate 100 ml @ 25 mls/hr DAILY IV ; Start 04/26/20 at 09:00; Stop 04/26/20 at 08:41; Status DC Potassium Chloride/Water 100 ml @ 100 mls/hr Q1H IV Last administered on 04/25/20at 22:43; Start 04/25/20 at 21:00; Stop 04/25/20 at 22:59; Status DC Potassium Chloride/Water 100 ml @ 100 mls/hr Q1H IV Last administered on 04/26/20at 03:19; Start 04/26/20 at 01:45; Stop 04/26/20 at 03:44; Status DC Dextrose/Sodium Chloride 1,000 ml @ 75 mls/hr [id number] IV Last administered on 04/26/20at 05:16; Start 04/26/20 at 05:15; Stop 04/26/20 at 19:14; Status DC Insulin Glargine (Lantus Syringe) 5 unit QHS SQ Last administered on 04/27/20at 22:24; Start 04/26/20 at 21:00 Insulin Human Lispro (HumaLOG) 0-7 UNITS TIDWMEALS SQ Last administered on 04/27/20at 12:43; Start 04/26/20 at 08:00 Dextrose (Dextrose 50%-Water Syringe) 12.5 gm PRN Q15MIN PRN IV SEE COMMENTS; Start 04/26/20 at 07:15 Insulin Glargine (Lantus Syringe) 5 unit QHS SQ ; Start 04/26/20 at 21:00; Status Cancel Pantoprazole Sodium (PROTONIX VIAL for IV PUSH) 40 mg DAILYAC IVP Last administered on 04/27/20at 08:56; Start 04/26/20 at 12:15 Atorvastatin Calcium (Lipitor) 20 mg QHS PO Last administered on 04/27/20 22:13; Start 04/26/20 at 21:00 Finasteride (Proscar) 5 mg DAILY PO Last administered on 04/28/20at 10:50; Start 04/26/20 at 13:00 Levothyroxine Sodium (Synthroid) 175 mcg DAILY06 PO Last administered on 04/28/20at 07:41; Start 04/27/20 at 06:00 Midodrine (Proamatine) 5 mg TID PRN PRN PO FOR HYPOTENSION; Start 04/26/20 at 12:30 Pantoprazole Sodium (Protonix) 40 mg DAILYAC PO Last administered on 04/28/20at 10:51; Start 04/26/20 at 16:30 Promethazine HCl (Phenergan Supp) 25 mg Q12HR PRN RC NAUSEA/VOMITING; Start 04/26/20 at 12:30 Sevelamer Carbonate (Renvela) 800 mg TIDWMEALS PO Last administered on 04/28/20 10:50; Start 04/26/20 at 12:30 Tamsulosin HCl (Flomax) 0.4 mg DAILY PO Last administered on 04/28/20 10:50; Start 04/26/20 at 13:00 Multivitamins (Thera M Plus) 1 tab DAILY PO Last administered on 04/28/20 10:50; Start 04/27/20 at 09:00 Ondansetron HCl (Zofran Odt) 4 mg PRN Q4HRS PRN PO NAUSEA/VOMITING; Start 04/26/20 at 12:45 Hydromorphone HCl (Dilaudid) 4 mg PRN Q6HRS PRN PO PAIN Last administered on 04/27/20at 22:26; Start 04/26/20 at 18:15 Sodium Chloride 1,000 ml @ 75 mls/hr [id number] IV Last administered on 04/27/20at 22:14; Start 04/26/20 at 19:15 Insulin Glargine (Lantus Syringe) 5 unit QHS SQ ; Start 04/27/20 at 21:00; Status UNV Sodium Chloride 1,000 ml @ 1,000 mls/hr Q1H PRN IV hypotension; Start 04/28/20 at 11:30; Stop 04/28/20 at 19:00 Albumin Human 200 ml @ 200 mls/hr 1X PRN PRN IV Hypotension; Start 04/28/20 at 11:45; Stop 04/28/20 at 17:44 Sodium Chloride (Normal Saline Flush) 10 ml 1X PRN PRN IV AP catheter pack; Start 04/28/20 at 11:45; Stop 04/28/20 at 19:00 Sodium Chloride (Normal Saline Flush) 10 ml 1X PRN PRN IV [employer] 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; Start 04/28/20 at 11:45; Stop 04/28/20 at 19:00 Sodium Chloride 1,000 ml @ 400 mls/hr Q2H30M PRN IV PATENCY; Start 04/28/20 at 11:30; Stop 04/28/20 at 19:00 Info (PHARMACY MONITORING -- do not chart) 1 each PRN DAILY PRN MC SEE COMMENTS; Start 04/28/20 at 11:45; Status UNV Info (PHARMACY MONITORING -- do not chart) 1 each PRN DAILY PRN MC SEE COMMENTS; Start 04/28/20 at 11:45 Active Scripts Active Reported Renvela (Sevelamer Carbonate) 800 Mg Tablet 800 Mg PO TIDWMEALS Promethazine Hcl 25 Mg Supp.rect 25 Mg RC Q12HR PRN Novolog (Insulin Aspart) 100 Unit/1 Ml Vial 0 SQ TIDAC Midodrine Hcl 5 Mg Tablet 5 Mg PO PRN PRN Levothyroxine Sodium 175 Mcg Tablet 175 Mcg PO DAILYAC Zofran (Ondansetron Hcl) 4 Mg Tablet 1 Tab PO Q4HRS PRN Flomax (Tamsulosin Hcl) 0.4 Mg Cap.er.24h 1 Cap PO DAILY Pantoprazole Sodium (Pantoprazole Sodium) 40 Mg Tablet.dr 40 Mg PO DAILYAC Multi Vitamin Daily (Multivitamin) 1 Each Tablet 1 Tab PO DAILY 30 Days Morphine Sulfate 30 Mg Tablet 2 Tab PO TID Lantus Solostar (Insulin Glargine,Hum.rec.anlog) 100 Unit/1 Ml Insuln.pen 5 Unit SQ QHS Hydromorphone Hcl 4 Mg Tablet 4 Mg PO PRN Q6HRS PRN Atorvastatin Calcium 20 Mg Tablet 1 Tab PO DAILY Finasteride 5 Mg Tablet 1 Tab PO DAILY Allergies Allergies: Coded Allergies: Penicillins (Verified Allergy, Intermediate, 09/21/19) Tolerates cephalosporins tapentadol (Verified Allergy, Intermediate, 06/14/19) Iodinated Contrast Media (Verified Adverse Reaction, Intermediate, 09/10/19) ROS Review of System Per HPI, rest ROS is negative Physical Exam Physical Exam GENERAL: Propped up in bed, NAD HEENT: Oral cavity, pharynx was clear. NECK: Supple, LUNGS: Decreased in the bases, nonlabored HEART: S1, S2. ABDOMEN: Soft, no guarding or rebound.Hernia + EXTREMITIES: Without clubbing, cyanosis. Trace edema. Left knee brace. NEUROLOGIC: Alert, answers questions. MUSCULOSKELETAL: Multiple joint deformities, Ext -Right hemodialysis catheter No woodson, No CVA or SP tenderness Vital Signs Vital Signs Date Time Temp Pulse Resp B/P (MAP) Pulse Ox O2 Delivery O2 Flow Rate FiO2 04/28/20 11:10 99.8 64 18 151/63 (92) 72 Nasal Cannula 1.0 99.8 Assessment & Plan ESRD - On HD MWF under Dr. Anderson's care Seen on HD, tolerating well, Discussed Tx plan with [facility]- Rt Tunneled HDC Shortness of air, improved- Improved Hx of Dislocated shoulder with infection with group B strep in the past Coronary artery disease Anemia- Questionable gastrointestinal bleed, GI consulted Hyperdense right mid renal lesion, may represent complicated cyst, unchanged on CT Labs Labs Laboratory Tests Test 04/26/20 13:55 04/26/20 18:15 04/26/20 20:44 04/27/20 07:15 Glucose (Fingerstick) 151 mg/dL (70-99) 298 mg/dL (70-99) 251 mg/dL (70-99) White Blood Count 3.0 x10^3/uL (4.0-11.0) Red Blood Count 3.15 x10^6/uL (4.30-5.70) Hemoglobin 10.2 g/dL (13.0-17.5) Hematocrit 30.6 % (39.0-53.0) Mean Corpuscular Volume 97 fL (79-100) Mean Corpuscular Hemoglobin 32 pg (25-35) Mean Corpuscular Hemoglobin Concent 33 g/dL (31-37) Red Cell Distribution Width 16.9 % (11.5-14.5) Platelet Count 139 x10^3/uL (140-400) Neutrophils (%) (Auto) 57 % (31-73) Lymphocytes (%) (Auto) 21 % (24-48) Monocytes (%) (Auto) 19 % (0-9) Eosinophils (%) (Auto) 3 % (0-3) Basophils (%) (Auto) 1 % (0-3) Neutrophils # (Auto) 1.7 x10^3/uL (1.8-7.7) Lymphocytes # (Auto) 0.6 x10^3/uL (1.0-4.8) Monocytes # (Auto) 0.6 x10^3/uL (0.0-1.1) Eosinophils # (Auto) 0.1 x10^3/uL (0.0-0.7) Basophils # (Auto) 0.0 x10^3/uL (0.0-0.2) Test 04/27/20 07:25 04/27/20 11:25 04/27/20 16:34 04/27/20 21:26 Glucose (Fingerstick) 213 mg/dL (70-99) 215 mg/dL (70-99) 150 mg/dL (70-99) 118 mg/dL (70-99) Test 04/28/20 03:48 04/28/20 08:30 04/28/20 10:26 White Blood Count 2.6 x10^3/uL (4.0-11.0) Red Blood Count 3.02 x10^6/uL (4.30-5.70) Hemoglobin 9.8 g/dL (13.0-17.5) Hematocrit 29.5 % (39.0-53.0) Mean Corpuscular Volume 98 fL (79-100) Mean Corpuscular Hemoglobin 32 pg (25-35) Mean Corpuscular Hemoglobin Concent 33 g/dL (31-37) Red Cell Distribution Width 16.6 % (11.5-14.5) Platelet Count 117 x10^3/uL (140-400) Neutrophils (%) (Auto) 55 % (31-73) Lymphocytes (%) (Auto) 20 % (24-48) Monocytes (%) (Auto) 14 % (0-9) Eosinophils (%) (Auto) 10 % (0-3) Basophils (%) (Auto) 0 % (0-3) Neutrophils # (Auto) 1.4 x10^3/uL (1.8-7.7) Lymphocytes # (Auto) 0.5 x10^3/uL (1.0-4.8) Monocytes # (Auto) 0.4 x10^3/uL (0.0-1.1) Eosinophils # (Auto) 0.3 x10^3/uL (0.0-0.7) Basophils # (Auto) 0.0 x10^3/uL (0.0-0.2) Sodium Level 138 mmol/L (136-145) Potassium Level 4.7 mmol/L (3.5-5.1) Chloride Level 101 mmol/L (98-107) Carbon Dioxide Level 25 mmol/L (21-32) Anion Gap 12 (6-14) Blood Urea Nitrogen 78 mg/dL (8-26) Creatinine 6.2 mg/dL (0.7-1.3) Estimated GFR (Cockcroft-Gault) 8.8 BUN/Creatinine Ratio 13 (6-20) Glucose Level 91 mg/dL (70-99) Calcium Level 8.8 mg/dL (8.5-10.1) Iron Level 50 ug/dL (65-175) Total Iron Binding Capacity 123 ug/dL (250-450) Iron Saturation 41 % (15-34) Total Bilirubin 0.4 mg/dL (0.2-1.0) Aspartate Amino Transf (AST/SGOT) 17 U/L (15-37) Alanine Aminotransferase (ALT/SGPT) 16 U/L (16-63) Alkaline Phosphatase 55 U/L (46-116) Total Protein 5.1 g/dL (6.4-8.2) Albumin 2.3 g/dL (3.4-5.0) Albumin/Globulin Ratio 0.8 (1.0-1.7) Vitamin B12 Level 1236 pg/mL (247-911) Glucose (Fingerstick) 64 mg/dL (70-99) 72 mg/dL (70-99) Laboratory Tests Test 04/27/20 16:34 04/27/20 21:26 04/28/20 03:48 04/28/20 08:30 Glucose (Fingerstick) 150 mg/dL (70-99) 118 mg/dL (70-99) 64 mg/dL (70-99) White Blood Count 2.6 x10^3/uL (4.0-11.0) Red Blood Count 3.02 x10^6/uL (4.30-5.70) Hemoglobin 9.8 g/dL (13.0-17.5) Hematocrit 29.5 % (39.0-53.0) Mean Corpuscular Volume 98 fL (79-100) Mean Corpuscular Hemoglobin 32 pg (25-35) Mean Corpuscular Hemoglobin Concent 33 g/dL (31-37) Red Cell Distribution Width 16.6 % (11.5-14.5) Platelet Count 117 x10^3/uL (140-400) Neutrophils (%) (Auto) 55 % (31-73) Lymphocytes (%) (Auto) 20 % (24-48) Monocytes (%) (Auto) 14 % (0-9) Eosinophils (%) (Auto) 10 % (0-3) Basophils (%) (Auto) 0 % (0-3) Neutrophils # (Auto) 1.4 x10^3/uL (1.8-7.7) Lymphocytes # (Auto) 0.5 x10^3/uL (1.0-4.8) Monocytes # (Auto) 0.4 x10^3/uL (0.0-1.1) Eosinophils # (Auto) 0.3 x10^3/uL (0.0-0.7) Basophils # (Auto) 0.0 x10^3/uL (0.0-0.2) Sodium Level 138 mmol/L (136-145) Potassium Level 4.7 mmol/L (3.5-5.1) Chloride Level 101 mmol/L (98-107) Carbon Dioxide Level 25 mmol/L (21-32) Anion Gap 12 (6-14) Blood Urea Nitrogen 78 mg/dL (8-26) Creatinine 6.2 mg/dL (0.7-1.3) Estimated GFR (Cockcroft-Gault) 8.8 BUN/Creatinine Ratio 13 (6-20) Glucose Level 91 mg/dL (70-99) Calcium Level 8.8 mg/dL (8.5-10.1) Iron Level 50 ug/dL (65-175) Total Iron Binding Capacity 123 ug/dL (250-450) Iron Saturation 41 % (15-34) Total Bilirubin 0.4 mg/dL (0.2-1.0) Aspartate Amino Transf (AST/SGOT) 17 U/L (15-37) Alanine Aminotransferase (ALT/SGPT) 16 U/L (16-63) Alkaline Phosphatase 55 U/L (46-116) Total Protein 5.1 g/dL (6.4-8.2) Albumin 2.3 g/dL (3.4-5.0) Albumin/Globulin Ratio 0.8 (1.0-1.7) Vitamin B12 Level 1236 pg/mL (247-911) Test 04/28/20 10:26 Glucose (Fingerstick) 72 mg/dL (70-99) Review All relevant outside records, renal labs, imaging studies, telemetry/EKG's were reviewed. GUNNAR IGLESIAS MD Apr 28, 2020 13:25
--- NOTE | 2020-04-28 14:30 | NUR ---
SW following. Reviewed chart and spoke with RN. AUDREY coordinated care with Geena from [facility], , (fax). AUDREY printed and faxed clinicals to Geena for potential discharge tomorrow, 04/29/2020. Pt down to room air from 1l 02. Pt on oral medications. Pt COVID negative. Pt currently in dialysis. SW to continue following.
[2020-04-28 19:00] VITALS: BP 144/72
--- NOTE | 2020-04-28 19:22 | PDOC ---
[employer] PROGRESS NOTE Chief Complaint Chief Complaint Shortness of air, improved, pending repeat COVID testing Hyperglycemia status post insulin drip now on glargine and sliding scale Leukopenia has been present in the past. ESRD on hemodialysis. History of Clostridium difficile. History of left shoulder infection with group B strep, had been on chronic suppressive antibiotics, appears to be off now and shoulder is benign. Coronary artery disease. Abdominal wall hernia. History of T12 compression fracture. Atrial fibrillation. History of Present Illness History of Present Illness April 28, 2020 Patient seen and examined bedside. Patient is saturating 97% on 1 L nasal cannula. Patient appears to be comfortable. Patient will be receiving dialysis today. Pending COVID results. Mr Tobar is a 79-yo M w/ PMHx DM2, Hypothyroidism, neurofibromatosis, ESRD on HD, history of a left shoulder infection with hardware in place, & history of C. difficile and CAD. He presented to [facility] [place], [place] on the with complaints of hypoxia and hyperglycemia. He was 80% on room air. WBC 2.7, glucose 593. He was transferred to [facility] and was placed on insulin drip. Hb 11.6, Platelets 157, BNP 4265 Currently, the patient is sitting upright in bed. He denies fevers or chills or sweats. He has no nausea or vomiting. Denies any gross blood that he has seen in his stool and has no gross shortness of air, currently on room air oxygen. Vitals/I&O Vitals/I&O: Vital Signs Date Time Temp Pulse Resp B/P (MAP) Pulse Ox O2 Delivery O2 Flow Rate FiO2 04/28/20 11:10 99.8 64 18 151/63 (92) 72 Nasal Cannula 1.0 99.8 I & O 04/27/20 04/27/20 04/28/20 15:00 23:00 07:00 Intake Total 320 ml 480 ml 440 ml Balance 320 ml 480 ml 440 ml Physical Exam Physical Exam: GENERAL: Propped up in bed, alert in NAD HEENT: Normal conjunctivae. Oral cavity, pharynx was clear. NECK: Supple, no JVD. LUNGS: Decreased in the bases, nonlabored HEART: S1, S2. ABDOMEN: Soft, no guarding or rebound. EXTREMITIES: Without clubbing, cyanosis. Trace edema. Left knee brace. NEUROLOGIC: Alert, answers questions. MUSCULOSKELETAL: Multiple joint deformities, left shoulder is without signs of inflammation or erythema. Right hemodialysis catheter without signs of any complications. General: Alert, Cooperative Heart: Regular rate, Normal S1, Normal S2 Lungs: Clear Abdomen: Normal bowel sounds Extremities: Other (Left shoulder deformity, left leg in immobilizer) Skin: No rashes, No breakdown Labs Labs: Laboratory Tests Test 04/27/20 21:26 04/28/20 03:48 04/28/20 08:30 04/28/20 10:26 Glucose (Fingerstick) 118 mg/dL (70-99) 64 mg/dL (70-99) 72 mg/dL (70-99) White Blood Count 2.6 x10^3/uL (4.0-11.0) Red Blood Count 3.02 x10^6/uL (4.30-5.70) Hemoglobin 9.8 g/dL (13.0-17.5) Hematocrit 29.5 % (39.0-53.0) Mean Corpuscular Volume 98 fL (79-100) Mean Corpuscular Hemoglobin 32 pg (25-35) Mean Corpuscular Hemoglobin Concent 33 g/dL (31-37) Red Cell Distribution Width 16.6 % (11.5-14.5) Platelet Count 117 x10^3/uL (140-400) Neutrophils (%) (Auto) 55 % (31-73) Lymphocytes (%) (Auto) 20 % (24-48) Monocytes (%) (Auto) 14 % (0-9) Eosinophils (%) (Auto) 10 % (0-3) Basophils (%) (Auto) 0 % (0-3) Neutrophils # (Auto) 1.4 x10^3/uL (1.8-7.7) Lymphocytes # (Auto) 0.5 x10^3/uL (1.0-4.8) Monocytes # (Auto) 0.4 x10^3/uL (0.0-1.1) Eosinophils # (Auto) 0.3 x10^3/uL (0.0-0.7) Basophils # (Auto) 0.0 x10^3/uL (0.0-0.2) Sodium Level 138 mmol/L (136-145) Potassium Level 4.7 mmol/L (3.5-5.1) Chloride Level 101 mmol/L (98-107) Carbon Dioxide Level 25 mmol/L (21-32) Anion Gap 12 (6-14) Blood Urea Nitrogen 78 mg/dL (8-26) Creatinine 6.2 mg/dL (0.7-1.3) Estimated GFR (Cockcroft-Gault) 8.8 BUN/Creatinine Ratio 13 (6-20) Glucose Level 91 mg/dL (70-99) Calcium Level 8.8 mg/dL (8.5-10.1) Iron Level 50 ug/dL (65-175) Total Iron Binding Capacity 123 ug/dL (250-450) Iron Saturation 41 % (15-34) Total Bilirubin 0.4 mg/dL (0.2-1.0) Aspartate Amino Transf (AST/SGOT) 17 U/L (15-37) Alanine Aminotransferase (ALT/SGPT) 16 U/L (16-63) Alkaline Phosphatase 55 U/L (46-116) Total Protein 5.1 g/dL (6.4-8.2) Albumin 2.3 g/dL (3.4-5.0) Albumin/Globulin Ratio 0.8 (1.0-1.7) Vitamin B12 Level 1236 pg/mL (247-911) Review of Systems Review of Systems: CONSTITUTIONAL: No fever or chills EYES: No recent changes SKIN: No rash or itching CARDIOVASCULAR: No chest pain, syncope, palpitations, or edema RESPIRATORY: No SOB or cough GASTROINTESTINAL: No nausea, vomiting or abdominal pain NEUROLOGICAL: No headaches or weakness ENDOCRINE: No cold or heat intolerance GENITOURINARY: No urgency or frequency of urination MUSCULOSKELETAL: No back pain or joint pain LYMPHATICS: No enlarged lymph nodes PSYCHIATRIC: No anxiety or depression Comment Review of Relevant I have reviewed the following items john (where applicable) has been applied. Justicifation of Admission Dx: Justifications for Admission: Justification of Admission Dx: Yes DKA: PRISCA GRIFFITH MD Apr 28, 2020 19:22
[2020-04-28] MEDS ORDERED: INSULIN GLARGINE SYRINGE. SQ SCH (21:00)
[2020-04-28] MEDS: ATORVASTATIN CALCIUM 20 MG TABLET PO SCH (21:41)
[2020-04-28 23:00] VITALS: BP 135/60
[2020-04-29] MEDS: IV NORMAL SALINE 1000ML BAG 1,000 ML IV SCH ×2 (00:35→03:13)
--- NOTE | 2020-04-29 01:37 | NUR ---
NS NOT GIVEN AT 0030. PREVIOUS FLUID MAINTENANCE STILL INFUSING
[2020-04-29] MEDS: LEVOTHYROXINE 175 MCG TABLET PO SCH (06:00)
[2020-04-29 07:20] VITALS: BP 154/66
[2020-04-29] MEDS: PANTOPRAZOLE IV PUSH 40 MG VIAL. IVP SCH (07:30)
[2020-04-29] MEDS: INSULIN LISPRO 300 UNITS/3 ML VIAL. SQ SCH ×2 (08:00→12:56)
[2020-04-29 08:41] LABS: BASO % 1 % (0-3); EOS # 0.1 x10^3/uL (0.0-0.7); EOS % 5 % (0-3); HEMATOCRIT 28.6 % (39.0-53.0); HEMOGLOBIN 9.4 g/dL (13.0-17.5); LYMPH # 0.6 x10^3/uL (1.0-4.8); LYMPH % 22 % (24-48); MEAN CORPUSCULAR HEMOGLOBIN 32 pg (25-35); MEAN CORPUSCULAR HGB CONC 33 g/dL (31-37); MEAN CORPUSCULAR VOLUME 98 fL (79-100); MONO # 0.4 x10^3/uL (0.0-1.1); MONO % 14 % (0-9); NEUT # 1.7 x10^3/uL (1.8-7.7); NEUT % 59 % (31-73); PLATELET COUNT 104 x10^3/uL (140-400); RED BLOOD COUNT 2.93 x10^6/uL (4.30-5.70); RED CELL DISTRIBUTION WIDTH 16.7 % (11.5-14.5); WHITE BLOOD COUNT 2.8 x10^3/uL (4.0-11.0)
[2020-04-29] MEDS: PANTOPRAZOLE 40 MG TABLET.DR. PO SCH (08:53)
[2020-04-29] MEDS: SEVELAMER CARBONATE 800 MG TABLET. PO SCH ×2 (08:53→12:45)
[2020-04-29] MEDS: MULTIVITAMIN with MINERAL TABLET. PO SCH (08:53)
[2020-04-29] MEDS: TAMSULOSIN 0.4 MG CAP.ER.24H. PO SCH (08:53)
[2020-04-29] MEDS: FINASTERIDE 5 MG TABLET. PO SCH (08:53)
--- NOTE | 2020-04-29 09:15 | PDOC ---
PULMONARY PROGRESS NOTES Subjective Patient not short of air, wishes oxygen to be discontinued Vitals Vital Signs Date Time Temp Pulse Resp B/P (MAP) Pulse Ox O2 Delivery O2 Flow Rate FiO2 04/28/20 23:00 99.5 70 17 135/60 (85) 89 Room Air 99.5 04/28/20 11:10 1.0 ROS: No Nausea, No Chest Pain, No Abdominal Pain General: Alert, No acute distress Lungs: Clear Cardiovascular: S1, S2 Abdomen: Soft, Other Neuro Exam: Alert Extremities: No Edema, Other Skin: Warm Labs Laboratory Tests Test 04/27/20 11:25 04/27/20 16:34 04/27/20 21:26 04/28/20 03:48 Glucose (Fingerstick) 215 mg/dL (70-99) 150 mg/dL (70-99) 118 mg/dL (70-99) White Blood Count 2.6 x10^3/uL (4.0-11.0) Red Blood Count 3.02 x10^6/uL (4.30-5.70) Hemoglobin 9.8 g/dL (13.0-17.5) Hematocrit 29.5 % (39.0-53.0) Mean Corpuscular Volume 98 fL (79-100) Mean Corpuscular Hemoglobin 32 pg (25-35) Mean Corpuscular Hemoglobin Concent 33 g/dL (31-37) Red Cell Distribution Width 16.6 % (11.5-14.5) Platelet Count 117 x10^3/uL (140-400) Neutrophils (%) (Auto) 55 % (31-73) Lymphocytes (%) (Auto) 20 % (24-48) Monocytes (%) (Auto) 14 % (0-9) Eosinophils (%) (Auto) 10 % (0-3) Basophils (%) (Auto) 0 % (0-3) Neutrophils # (Auto) 1.4 x10^3/uL (1.8-7.7) Lymphocytes # (Auto) 0.5 x10^3/uL (1.0-4.8) Monocytes # (Auto) 0.4 x10^3/uL (0.0-1.1) Eosinophils # (Auto) 0.3 x10^3/uL (0.0-0.7) Basophils # (Auto) 0.0 x10^3/uL (0.0-0.2) Sodium Level 138 mmol/L (136-145) Potassium Level 4.7 mmol/L (3.5-5.1) Chloride Level 101 mmol/L (98-107) Carbon Dioxide Level 25 mmol/L (21-32) Anion Gap 12 (6-14) Blood Urea Nitrogen 78 mg/dL (8-26) Creatinine 6.2 mg/dL (0.7-1.3) Estimated GFR (Cockcroft-Gault) 8.8 BUN/Creatinine Ratio 13 (6-20) Glucose Level 91 mg/dL (70-99) Calcium Level 8.8 mg/dL (8.5-10.1) Iron Level 50 ug/dL (65-175) Total Iron Binding Capacity 123 ug/dL (250-450) Iron Saturation 41 % (15-34) Total Bilirubin 0.4 mg/dL (0.2-1.0) Aspartate Amino Transf (AST/SGOT) 17 U/L (15-37) Alanine Aminotransferase (ALT/SGPT) 16 U/L (16-63) Alkaline Phosphatase 55 U/L (46-116) Total Protein 5.1 g/dL (6.4-8.2) Albumin 2.3 g/dL (3.4-5.0) Albumin/Globulin Ratio 0.8 (1.0-1.7) Vitamin B12 Level 1236 pg/mL (247-911) Test 04/28/20 08:30 04/28/20 10:26 04/28/20 20:46 04/29/20 03:58 Glucose (Fingerstick) 64 mg/dL (70-99) 72 mg/dL (70-99) 175 mg/dL (70-99) White Blood Count 2.8 x10^3/uL (4.0-11.0) Red Blood Count 2.93 x10^6/uL (4.30-5.70) Hemoglobin 9.4 g/dL (13.0-17.5) Hematocrit 28.6 % (39.0-53.0) Mean Corpuscular Volume 98 fL (79-100) Mean Corpuscular Hemoglobin 32 pg (25-35) Mean Corpuscular Hemoglobin Concent 33 g/dL (31-37) Red Cell Distribution Width 16.7 % (11.5-14.5) Platelet Count 104 x10^3/uL (140-400) Neutrophils (%) (Auto) 59 % (31-73) Lymphocytes (%) (Auto) 22 % (24-48) Monocytes (%) (Auto) 14 % (0-9) Eosinophils (%) (Auto) 5 % (0-3) Basophils (%) (Auto) 1 % (0-3) Neutrophils # (Auto) 1.7 x10^3/uL (1.8-7.7) Lymphocytes # (Auto) 0.6 x10^3/uL (1.0-4.8) Monocytes # (Auto) 0.4 x10^3/uL (0.0-1.1) Eosinophils # (Auto) 0.1 x10^3/uL (0.0-0.7) Basophils # (Auto) 0.0 x10^3/uL (0.0-0.2) Test 04/29/20 07:34 Glucose (Fingerstick) 124 mg/dL (70-99) Laboratory Tests Test 04/28/20 10:26 04/28/20 20:46 04/29/20 03:58 04/29/20 07:34 Glucose (Fingerstick) 72 mg/dL (70-99) 175 mg/dL (70-99) 124 mg/dL (70-99) White Blood Count 2.8 x10^3/uL (4.0-11.0) Red Blood Count 2.93 x10^6/uL (4.30-5.70) Hemoglobin 9.4 g/dL (13.0-17.5) Hematocrit 28.6 % (39.0-53.0) Mean Corpuscular Volume 98 fL (79-100) Mean Corpuscular Hemoglobin 32 pg (25-35) Mean Corpuscular Hemoglobin Concent 33 g/dL (31-37) Red Cell Distribution Width 16.7 % (11.5-14.5) Platelet Count 104 x10^3/uL (140-400) Neutrophils (%) (Auto) 59 % (31-73) Lymphocytes (%) (Auto) 22 % (24-48) Monocytes (%) (Auto) 14 % (0-9) Eosinophils (%) (Auto) 5 % (0-3) Basophils (%) (Auto) 1 % (0-3) Neutrophils # (Auto) 1.7 x10^3/uL (1.8-7.7) Lymphocytes # (Auto) 0.6 x10^3/uL (1.0-4.8) Monocytes # (Auto) 0.4 x10^3/uL (0.0-1.1) Eosinophils # (Auto) 0.1 x10^3/uL (0.0-0.7) Basophils # (Auto) 0.0 x10^3/uL (0.0-0.2) Medications Active Scripts Medications Dose Route/Sig Max Daily Dose Days Date Category Renvela (Sevelamer Carbonate) 800 Mg Tablet 800 Mg PO TIDWMEALS 04/26/20 Reported Promethazine Hcl 25 Mg Supp.rect 25 Mg RC Q12HR PRN 04/26/20 Reported Novolog (Insulin Aspart) 100 Unit/1 Ml Vial 0 SQ TIDAC 04/26/20 Reported Midodrine Hcl 5 Mg Tablet 5 Mg PO PRN PRN 04/26/20 Reported Levothyroxine Sodium 175 Mcg Tablet 175 Mcg PO DAILYAC 11/22/19 Reported Zofran (Ondansetron Hcl) 4 Mg Tablet 1 Tab PO Q4HRS PRN 09/10/19 Reported Flomax (Tamsulosin Hcl) 0.4 Mg Cap.er.24h 1 Cap PO DAILY 09/10/19 Reported Pantoprazole Sodium (Pantoprazole Sodium) 40 Mg Tablet.dr 40 Mg PO DAILYAC 09/10/19 Reported Multi Vitamin Daily (Multivitamin) 1 Each Tablet 1 Tab PO DAILY 30 09/10/19 Reported Morphine Sulfate 30 Mg Tablet 2 Tab PO TID 09/10/19 Reported Lantus Solostar (Insulin Glargine,Hum.rec.anlog) 100 Unit/1 Ml Insuln.pen 5 Unit SQ QHS 09/10/19 Reported Hydromorphone Hcl 4 Mg Tablet 4 Mg PO PRN Q6HRS PRN 09/10/19 Reported Atorvastatin Calcium 20 Mg Tablet 1 Tab PO DAILY 09/10/19 Reported Finasteride 5 Mg Tablet 1 Tab PO DAILY 06/07/19 Reported Impression . IMPRESSION: 1. Acute hypoxemic respiratory failure., Improved 2. Abnormal chest x-ray. 3. Status post diabetic ketoacidosis. 4. Leukopenia. 5. End-stage renal disease, on hemodialysis. 6. History of Clostridium difficile colitis. 7. History of left shoulder infection with group B strep. 8. Coronary artery disease. 9. History of T12 compression fracture. Plan . Check oxygen needs SARS-CoV-2 pending Follow infectious disease regarding antibiotics Hemodialysis per nephrology EDMAR GARG MD Apr 29, 2020 09:14
[2020-04-29 10:17] LABS: CALCIUM 8.6 mg/dL (8.5-10.1); CREATININE 4.5 mg/dL (0.7-1.3); GFR 12.7; PHOSPHORUS 3.6 mg/dL (2.6-4.7); POTASSIUM 4.3 mmol/L (3.5-5.1)
--- NOTE | 2020-04-29 10:17 | PDOC ---
Infectious Disease Note Subjective Subjective Feeling better today Doesn't think he needs the supplemental O2, currently on 3L ROS ROS No nausea vomiting diarrhea chest pain shortness of breath Vital Sign Vital Signs Vital Signs Date Time Temp Pulse Resp B/P (MAP) Pulse Ox O2 Delivery O2 Flow Rate FiO2 04/29/20 07:20 97.9 62 18 154/66 (95) 96 Room Air 97.9 04/28/20 11:10 1.0 Physical Exam PHYSICAL EXAM GENERAL: Propped up in bed, alert in NAD HEENT: Normal conjunctivae. Oral cavity, pharynx was clear. NECK: Supple, no JVD. LUNGS: Decreased in the bases, nonlabored HEART: S1, S2. ABDOMEN: Soft, no guarding or rebound. EXTREMITIES: Without clubbing, cyanosis. Trace edema. Left knee brace. NEUROLOGIC: Alert, answers questions. MUSCULOSKELETAL: Multiple joint deformities, left shoulder is without signs of inflammation or erythema. Right hemodialysis catheter without signs of any complications. Labs Lab Laboratory Tests Test 04/28/20 10:26 04/28/20 20:46 04/29/20 03:58 04/29/20 07:34 Glucose (Fingerstick) 72 mg/dL (70-99) 175 mg/dL (70-99) 124 mg/dL (70-99) White Blood Count 2.8 x10^3/uL (4.0-11.0) Red Blood Count 2.93 x10^6/uL (4.30-5.70) Hemoglobin 9.4 g/dL (13.0-17.5) Hematocrit 28.6 % (39.0-53.0) Mean Corpuscular Volume 98 fL (79-100) Mean Corpuscular Hemoglobin 32 pg (25-35) Mean Corpuscular Hemoglobin Concent 33 g/dL (31-37) Red Cell Distribution Width 16.7 % (11.5-14.5) Platelet Count 104 x10^3/uL (140-400) Neutrophils (%) (Auto) 59 % (31-73) Lymphocytes (%) (Auto) 22 % (24-48) Monocytes (%) (Auto) 14 % (0-9) Eosinophils (%) (Auto) 5 % (0-3) Basophils (%) (Auto) 1 % (0-3) Neutrophils # (Auto) 1.7 x10^3/uL (1.8-7.7) Lymphocytes # (Auto) 0.6 x10^3/uL (1.0-4.8) Monocytes # (Auto) 0.4 x10^3/uL (0.0-1.1) Eosinophils # (Auto) 0.1 x10^3/uL (0.0-0.7) Basophils # (Auto) 0.0 x10^3/uL (0.0-0.2) Objective Assessment Shortness of air, improved. Hyperglycemia. Questionable gastrointestinal bleed. PENICILLIN ALLERGY. Leukopenia has been present in the past. Chronic kidney disease, on hemodialysis. History of Clostridium difficile. History of left shoulder infection with group B strep, had been on chronic suppressive antibiotics, appears to be off now and shoulder is benign. Coronary artery disease. Abdominal wall hernia. History of T12 compression fracture. Atrial fibrillation. Plan Plan of Care Patient can be discharged back to skilled nursing needs to go back to his cefdinir 300 once daily and p.o. vancomycin 125 twice daily These are chronic suppressive medications for him for shoulder infection and prevention of C. difficile AP PEACE MD Apr 29, 2020 10:17
--- NOTE | 2020-04-29 10:42 | PDOC ---
Subjective: Subjective: Tolerating PO w/o n/v. No abd pain. Stooling. Says discharging today. Objective: Objective: Tmax 99.8. COVID-19 negative per nurse. Vital Signs: Vital Signs Date Time Temp Pulse Resp B/P (MAP) Pulse Ox O2 Delivery O2 Flow Rate FiO2 04/29/20 07:20 97.9 62 18 154/66 (95) 96 Room Air 97.9 04/28/20 11:10 1.0 Labs: Laboratory Tests Test 04/28/20 20:46 04/29/20 03:38 04/29/20 03:58 04/29/20 07:34 Glucose (Fingerstick) 175 mg/dL 124 mg/dL Sodium Level 138 mmol/L Potassium Level 4.3 mmol/L Chloride Level 101 mmol/L Carbon Dioxide Level 26 mmol/L Anion Gap 11 Blood Urea Nitrogen 50 mg/dL Creatinine 4.5 mg/dL Estimated GFR (Cockcroft-Gault) 12.7 Glucose Level 140 mg/dL Calcium Level 8.6 mg/dL Phosphorus Level 3.6 mg/dL Magnesium Level 2.0 mg/dL White Blood Count 2.8 x10^3/uL Red Blood Count 2.93 x10^6/uL Hemoglobin 9.4 g/dL Hematocrit 28.6 % Mean Corpuscular Volume 98 fL Mean Corpuscular Hemoglobin 32 pg Mean Corpuscular Hemoglobin Concent 33 g/dL Red Cell Distribution Width 16.7 % Platelet Count 104 x10^3/uL Neutrophils (%) (Auto) 59 % Lymphocytes (%) (Auto) 22 % Monocytes (%) (Auto) 14 % Eosinophils (%) (Auto) 5 % Basophils (%) (Auto) 1 % Neutrophils # (Auto) 1.7 x10^3/uL Lymphocytes # (Auto) 0.6 x10^3/uL Monocytes # (Auto) 0.4 x10^3/uL Eosinophils # (Auto) 0.1 x10^3/uL Basophils # (Auto) 0.0 x10^3/uL PE: GEN: NAD LUNGS: CTAB HEART: RRR ABD: NABS, S/ND/NT NEURO/PSYCH: A & O 3 A/P: N/v w/ hyperglycemia - resolved -- Dc per primary. Justicifation of Admission Dx: Justifications for Admission: Justification of Admission Dx: Yes DKA: DKA GERALD SMITH Apr 29, 2020 10:42
[2020-04-29] MEDS ORDERED: CEFDINIR 300 MG CAPSULE PO SCH (11:00)
[2020-04-29] MEDS ORDERED: VANCOMYCIN 125 MG/2.5 ML ORAL SOLUTION. PO SCH (11:00)
[2020-04-29 11:03] VITALS: BP 145/60
--- NOTE | 2020-04-29 11:05 | PDOC ---
SUBJECTIVE ROS No complaints, he is anticipating dc today OBJECTIVE Vital Signs Vital Signs Date Time Temp Pulse Resp B/P (MAP) Pulse Ox O2 Delivery O2 Flow Rate FiO2 04/29/20 08:00 Nasal Cannula 1.0 04/29/20 07:20 97.9 62 18 154/66 (95) 96 97.9 I & 0 Intake and Output 04/29/20 07:00 Intake Total 430 ml Balance 430 ml Intake Oral 430 ml # Voids 2 PHYSICAL EXAM Physical Exam GENERAL: Propped up in bed, NAD HEENT: Oral cavity, pharynx was clear. NECK: Supple, LUNGS: Decreased in the bases, nonlabored HEART: S1, S2. ABDOMEN: Soft, no guarding or rebound.Hernia + EXTREMITIES: Without clubbing, cyanosis. Trace edema. Left knee brace. NEUROLOGIC: Alert, answers questions. MUSCULOSKELETAL: Multiple joint deformities, Ext -Right hemodialysis catheter No woodson, No CVA or SP tenderness DIAGNOSIS/ASSESSMENT Assessment & Plan ESRD - On HD MWF under Dr. Anderson's care No indication for HD today Access- Rt Tunneled HDC Shortness of air, - resolved Hx of Dislocated shoulder with infection with group B strep in the past Coronary artery disease Anemia Hyperdense right mid renal lesion, may represent complicated cyst, unchanged on CT COMMENT/RELEVANT DATA Meds Current Medications Medications (Trade) Dose Ordered Sig/Lauren Start Time Stop Time Status Last Admin Dose Admin Albumin Human 200 ml @ 200 mls/hr 1X PRN PRN 04/28/20 11:45 04/28/20 17:44 DC Atorvastatin Calcium (Lipitor) 20 mg QHS 04/26/20 21:00 04/28/20 21:41 20 MG Cefdinir (Omnicef) 300 mg DAILY 04/29/20 11:00 Dextrose (Dextrose 50%-Water Syringe) 12.5 gm PRN Q15MIN PRN 04/26/20 07:15 Dextrose/Sodium Chloride 1,000 ml @ 75 mls/hr [id number] 04/26/20 05:15 04/26/20 19:14 DC 04/26/20 05:16 75 MLS/HR Finasteride (Proscar) 5 mg DAILY 04/26/20 13:00 04/29/20 08:53 5 MG Hydromorphone HCl (Dilaudid) 4 mg PRN Q6HRS PRN 04/26/20 18:15 04/27/20 22:26 4 MG Info (PHARMACY MONITORING -- do not chart) 1 each PRN DAILY PRN 04/28/20 11:45 Insulin Glargine (Lantus Syringe) 10 unit QHS 04/28/20 21:00 04/28/20 21:44 10 UNIT Insulin Human Lispro (HumaLOG) 0-7 UNITS TIDWMEALS 04/26/20 08:00 04/27/20 12:43 4 UNITS Insulin Human Regular 100 unit/ Sodium Chloride 101 ml @ 0 mls/hr CONT PRN PRN 04/25/20 18:45 04/26/20 08:41 DC 04/26/20 03:19 15.4 MLS/HR Levothyroxine Sodium (Synthroid) 175 mcg DAILY06 04/27/20 06:00 04/28/20 07:41 175 MCG Magnesium Sulfate 100 ml @ 25 mls/hr DAILY 04/26/20 09:00 04/26/20 08:41 DC Midodrine (Proamatine) 5 mg TID PRN PRN 04/26/20 12:30 Multivitamins (Thera M Plus) 1 tab DAILY 04/27/20 09:00 04/29/20 08:53 1 TAB Ondansetron HCl (Zofran Odt) 4 mg PRN Q4HRS PRN 04/26/20 12:45 Pantoprazole Sodium (PROTONIX VIAL for IV PUSH) 40 mg DAILYAC 04/26/20 12:15 04/27/20 08:56 40 MG Pantoprazole Sodium (Protonix) 40 mg DAILYAC 04/26/20 16:30 04/29/20 08:53 40 MG Potassium Chloride/Water 100 ml @ 100 mls/hr Q1H 04/26/20 01:45 04/26/20 03:44 DC 04/26/20 03:19 100 MLS/HR Promethazine HCl (Phenergan Supp) 25 mg Q12HR PRN 04/26/20 12:30 Sevelamer Carbonate (Renvela) 800 mg TIDWMEALS 04/26/20 12:30 04/29/20 08:53 800 MG Sodium Chloride 1,000 ml @ 400 mls/hr Q2H30M PRN 04/28/20 11:30 04/28/20 19:00 DC Sodium Chloride (Normal Saline Flush) 10 ml 1X PRN PRN 04/28/20 11:45 04/28/20 19:00 DC Tamsulosin HCl (Flomax) 0.4 mg DAILY 04/26/20 13:00 04/29/20 08:53 0.4 MG Vancomycin HCl (Vancomycin Oral Solution) 125 mg BID 04/29/20 11:00 Lab Laboratory Tests Test 04/28/20 20:46 04/29/20 03:38 04/29/20 03:58 04/29/20 07:34 Glucose (Fingerstick) 175 mg/dL (70-99) 124 mg/dL (70-99) Sodium Level 138 mmol/L (136-145) Potassium Level 4.3 mmol/L (3.5-5.1) Chloride Level 101 mmol/L (98-107) Carbon Dioxide Level 26 mmol/L (21-32) Anion Gap 11 (6-14) Blood Urea Nitrogen 50 mg/dL (8-26) Creatinine 4.5 mg/dL (0.7-1.3) Estimated GFR (Cockcroft-Gault) 12.7 Glucose Level 140 mg/dL (70-99) Calcium Level 8.6 mg/dL (8.5-10.1) Phosphorus Level 3.6 mg/dL (2.6-4.7) Magnesium Level 2.0 mg/dL (1.8-2.4) White Blood Count 2.8 x10^3/uL (4.0-11.0) Red Blood Count 2.93 x10^6/uL (4.30-5.70) Hemoglobin 9.4 g/dL (13.0-17.5) Hematocrit 28.6 % (39.0-53.0) Mean Corpuscular Volume 98 fL (79-100) Mean Corpuscular Hemoglobin 32 pg (25-35) Mean Corpuscular Hemoglobin Concent 33 g/dL (31-37) Red Cell Distribution Width 16.7 % (11.5-14.5) Platelet Count 104 x10^3/uL (140-400) Neutrophils (%) (Auto) 59 % (31-73) Lymphocytes (%) (Auto) 22 % (24-48) Monocytes (%) (Auto) 14 % (0-9) Eosinophils (%) (Auto) 5 % (0-3) Basophils (%) (Auto) 1 % (0-3) Neutrophils # (Auto) 1.7 x10^3/uL (1.8-7.7) Lymphocytes # (Auto) 0.6 x10^3/uL (1.0-4.8) Monocytes # (Auto) 0.4 x10^3/uL (0.0-1.1) Eosinophils # (Auto) 0.1 x10^3/uL (0.0-0.7) Basophils # (Auto) 0.0 x10^3/uL (0.0-0.2) Test 04/29/20 10:51 Glucose (Fingerstick) 168 mg/dL (70-99) Results All relevant outside records, renal labs, imaging studies, telemetry/EKG's were reviewed. Justicifation of Admission Dx: Justifications for Admission: Justification of Admission Dx: Yes DKA: GUNNAR FRANK MD Apr 29, 2020 11:05
--- NOTE | 2020-04-29 13:10 | SNU/HH DC ---
DISCHARGE ORDERS DISCHARGE INFORMATION: CONDITION ON DISCHARGE: Stable CODE STATUS: Code Status: Full ASSISTED: SNF STAY <30 DAYS: Yes HOSPICE: HOSPICE: No HOSPICE EVAL & TREAT: No LTAC: ADMIT TO LTAC: No POST DISCHARGE ORDERS: ACTIVITY ORDERS: Activity as tolerated WEIGHT BEARING STATUS: Full weight bearing DIET AFTER DISCHARGE: Renal CHECKS AFTER DISCHARGE: CHECKS AFTER DISCHARGE: Check blood press - daily, Check blood sugar, ac/hs, Check your Temp as needed, Weigh Yourself Daily FOLLOW-UP: PHYSICIAN FOLLOW-UP: ID- Monica, Nephro - Enmanuel, GI - Propec TREATMENT/EQUIPMENT ORDERS: Physical Therapy For: Evalulation/Treatment Occupational Therapy For: Evaluation/Treatment DISCHARGE MEDICATIONS: Home Meds Reported Medications Sevelamer Carbonate (RENVELA) 800 Mg Tablet, 800 MG PO TIDWMEALS for esrd, TAB 04/26/20 Promethazine Hcl (PROMETHAZINE HCL) 25 Mg Supp.rect, 25 MG RC Q12HR PRN for NAUSEA/VOMITING, SUPP.RECT 04/26/20 Insulin Aspart (NOVOLOG) 100 Unit/1 Ml Vial, 0 SQ TIDAC for dm, VIAL 04/26/20 Midodrine Hcl (MIDODRINE HCL) 5 Mg Tablet, 5 MG PO PRN PRN for SEE COMMENTS, TAB 04/26/20 Levothyroxine Sodium (LEVOTHYROXINE SODIUM) 175 Mcg Tablet, 175 MCG PO DAILYAC for THYROID SUPPLEMENT, #30 TAB 0 Refills 11/22/19 Ondansetron Hcl (ZOFRAN) 4 Mg Tablet, 1 TAB PO Q4HRS PRN for NAUSEA, #20 TAB 09/10/19 Tamsulosin Hcl (FLOMAX) 0.4 Mg Cap.er.24h, 1 CAP PO DAILY for urinary retention, #30 CAP 11 Refills 09/10/19 Pantoprazole Sodium (PANTOPRAZOLE SODIUM ) 40 Mg Tablet.dr, 40 MG PO DAILYAC for GERD, TAB 09/10/19 Multivitamin (MULTI VITAMIN DAILY) 1 Each Tablet, 1 TAB PO DAILY for wound healing for 30 Days, #30 TAB 0 Refills 09/10/19 Morphine Sulfate (MORPHINE SULFATE) 30 Mg Tablet, 2 TAB PO TID for Pain, #120 TAB 09/10/19 Insulin Glargine,Hum.rec.anlog (LANTUS SOLOSTAR) 100 Unit/1 Ml Insuln.pen, 5 UNIT SQ QHS for DM, #15 ML 3 Refills 09/10/19 Hydromorphone Hcl (HYDROMORPHONE HCL) 4 Mg Tablet, 4 MG PO PRN Q6HRS PRN for PAIN, TAB 09/10/19 Atorvastatin Calcium (ATORVASTATIN CALCIUM) 20 Mg Tablet, 1 TAB PO DAILY for cholesterol, #30 TAB 5 Refills 09/10/19 Finasteride (FINASTERIDE) 5 Mg Tablet, 1 TAB PO DAILY for Prostate, #30 TAB 11 Refills 06/07/19 PRISCA VARGHESE MD Apr 29, 2020 13:10
--- NOTE | 2020-04-29 14:41 | NUR ---
SW following. Reviewed chart and spoke with RN and CM. AUDREY coordinated care with Dr. Bhat and pt will discharge today to [facility], , (fax). AUDREY phoned and faxed discharge orders to [facility] who confirmed they were received. AUDREY copied chart to be sent with pt along with 2 scripts for abx. RN to call report. Pt to discharge at 1500 via transport from the facility. Pt on room air and oral medications. No further SW needs at this time.
[2020-04-29 15:02] VITALS: BP 143/62
--- NOTE | 2020-04-29 15:40 | NUR ---
pt discharged back to [facility]. meds and follow up reviewed w/ ABRAHAM Kerr @ . vitals and labs reviewed. pt stable upon dc. IV removed, cath intact. pt transferred from bed to w/c w/ assist of 3 and gait belt
--- NOTE | 2020-04-29 16:47 | PDOC3 ---
[facility]-Discharge Summary Date of Admission: Date of Admission: Apr 25, 2020 Date of Discharge: Date of Discharge: Apr 29, 2020 Admission Diagnosis: Admitting Diagnosis: Shortness of air, improved, pending repeat COVID testing Hyperglycemia status post insulin drip now on glargine and sliding scale Leukopenia has been present in the past. ESRD on hemodialysis. History of Clostridium difficile. History of left shoulder infection with group B strep, had been on chronic suppressive antibiotics, appears to be off now and shoulder is benign. Coronary artery disease. Abdominal wall hernia. History of T12 compression fracture. Atrial fibrillation Discharge Diagnosis: Discharge Diagnosis: Acute respiratory distress Hyperglycemia status post insulin drip now on glargine and sliding scale Leukopenia has been present in the past. ESRD on hemodialysis. C. difficile infection History of left shoulder infection Coronary artery disease. Abdominal wall hernia. History of T12 compression fracture. Atrial fibrillation Consults: Consults: Infectious disease Nephrology Gastroenterology Hospital Course: Hospital Course: Patient is a 79-year-old male who is a resident at [facility] mainly for a femur fracture that happened recently he became hypoxic requiring O2 therapy and thus the reason why he was admitted for the hospital. Patient is COVID negative while in the ED at [facility] patient has some coffee-ground emesis and GI was consulted. Patient was admitted to the ICU mainly because of elevated sugar levels which required an insulin drip patient had acute anion gap 21 and DKA protocol started. Patient's gap closed and he was subsequently transferred to the floor. Patient's respiratory status improved and he was able to be titrated off of oxygen. Patient tolerated all his hemodialysis sessions. Rest of his hospital course was uneventful. Disposition: Disposition/Orders: D/C to Another Facility Activity: Activity: Resume previous activity Diet: Diet: Renal Medications: Home Meds Reported Medications Sevelamer Carbonate (RENVELA) 800 Mg Tablet, 800 MG PO TIDWMEALS for esrd, TAB 04/26/20 Promethazine Hcl (PROMETHAZINE HCL) 25 Mg Supp.rect, 25 MG RC Q12HR PRN for NA USEA/VOMITING, SUPP.RECT 04/26/20 Insulin Aspart (NOVOLOG) 100 Unit/1 Ml Vial, 0 SQ TIDAC for dm, VIAL 04/26/20 Midodrine Hcl (MIDODRINE HCL) 5 Mg Tablet, 5 MG PO PRN PRN for SEE COMMENTS, TAB 04/26/20 Levothyroxine Sodium (LEVOTHYROXINE SODIUM) 175 Mcg Tablet, 175 MCG PO DAILYAC for THYROID SUPPLEMENT, #30 TAB 0 Refills 11/22/19 Ondansetron Hcl (ZOFRAN) 4 Mg Tablet, 1 TAB PO Q4HRS PRN for NAUSEA, #20 TAB 09/10/19 Tamsulosin Hcl (FLOMAX) 0.4 Mg Cap.er.24h, 1 CAP PO DAILY for urinary retention, #30 CAP 11 Refills 09/10/19 Pantoprazole Sodium (PANTOPRAZOLE SODIUM ) 40 Mg Tablet.dr, 40 MG PO DAILYAC for GERD, TAB 09/10/19 Multivitamin (MULTI VITAMIN DAILY) 1 Each Tablet, 1 TAB PO DAILY for wound healing for 30 Days, #30 TAB 0 Refills 09/10/19 Morphine Sulfate (MORPHINE SULFATE) 30 Mg Tablet, 2 TAB PO TID for Pain, #120 TAB 09/10/19 Insulin Glargine,Hum.rec.anlog (LANTUS SOLOSTAR) 100 Unit/1 Ml Insuln.pen, 5 UNIT SQ QHS for DM, #15 ML 3 Refills 09/10/19 Hydromorphone Hcl (HYDROMORPHONE HCL) 4 Mg Tablet, 4 MG PO PRN Q6HRS PRN for PAIN, TAB 09/10/19 Atorvastatin Calcium (ATORVASTATIN CALCIUM) 20 Mg Tablet, 1 TAB PO DAILY for cholesterol, #30 TAB 5 Refills 09/10/19 Finasteride (FINASTERIDE) 5 Mg Tablet, 1 TAB PO DAILY for Prostate, #30 TAB 11 Refills 06/07/19 Scheduled Atorvastatin Calcium (Atorvastatin Calcium), 1 TAB PO DAILY, (Reported) Finasteride (Finasteride), 1 TAB PO DAILY, (Reported) Insulin Aspart (Novolog), 0 SQ TIDAC, (Reported) Insulin Glargine,Hum.rec.anlog (Lantus Solostar), 5 UNIT SQ QHS, (Reported) Levothyroxine Sodium (Levothyroxine Sodium), 175 MCG PO DAILYAC, (Reported) Morphine Sulfate (Morphine Sulfate), 2 TAB PO TID, (Reported) Multivitamin (Multi Vitamin Daily), 1 TAB PO DAILY, (Reported) Pantoprazole Sodium (Pantoprazole Sodium ), 40 MG PO DAILYAC, (Reported) Sevelamer Carbonate (Renvela), 800 MG PO TIDWMEALS, (Reported) Tamsulosin Hcl (Flomax), 1 CAP PO DAILY, (Reported) Scheduled PRN Hydromorphone Hcl (Hydromorphone Hcl), 4 MG PO PRN Q6HRS PRN for PAIN, (Reported) Midodrine Hcl (Midodrine Hcl), 5 MG PO PRN PRN for SEE COMMENTS, (Reported) Ondansetron Hcl (Zofran), 1 TAB PO Q4HRS PRN for NAUSEA, (Reported) Promethazine Hcl (Promethazine Hcl), 25 MG RC Q12HR PRN for NAUSEA/VOMITING, (Reported) Justicifation of Admission Dx: Justifications for Admission: Justification of Admission Dx: Yes DKA: PRISCA GRIFFITH MD Apr 29, 2020 16:47
== END 2020-04-29 15:43 | DRG 637 ==
LOC: 1 WEST ICU 17:48 → 6 SOUTH 04-27 02:27
PROVIDERS: ADMIT Family Medicine; ATTEND Family Medicine
PROC: 5A1D70Z Performance of Urinary Filtration, Intermittent, Less than 6 Hours Per Day (ICD-10-PCS; principal; 2020-04-29)
DX: E11.10 Type 2 diabetes mellitus with ketoacidosis without coma (principal); J96.01 Acute respiratory failure with hypoxia; N18.6 End stage renal disease; I12.0 Hypertensive chronic kidney disease with stage 5 chronic kidney disease or end stage renal disease; E11.22 Type 2 diabetes mellitus with diabetic chronic kidney disease; Z99.2 Dependence on renal dialysis; Z79.4 Long term (current) use of insulin; E78.5 Hyperlipidemia, unspecified; I25.10 Atherosclerotic heart disease of native coronary artery without angina pectoris; D72.819 Decreased white blood cell count, unspecified; I48.91 Unspecified atrial fibrillation; Z79.01 Long term (current) use of anticoagulants; D64.9 Anemia, unspecified; Z20.828 Contact with and (suspected) exposure to other viral communicable diseases; K43.9 Ventral hernia without obstruction or gangrene; Z95.1 Presence of aortocoronary bypass graft
CPT/HCPCS: 36415; 71045; 80048; 80053; 82607; 82962; 83540; 83550; 83735; 84100; 85007; 85025; C9113; J1815; J3480; J7030; J7042; G0378